=== PATIENT | female | born 1945 | race Caucasian/White ===

== ENCOUNTER 2022-06-25 19:16 | Outpatient (CLI) | payer MEDICARE, OTHER, SELFPAY | END 2022-06-25 19:17 | disposition home or self-care (01) | LOC: NFLDREF 06-27 10:28 | PROVIDERS: Visit Provider Family Medicine | DX: R30.0 Dysuria (principal); R32 Unspecified urinary incontinence; M54.9 Dorsalgia, unspecified | CPT/HCPCS: 87086 ==

== ENCOUNTER 2023-02-23 10:26 | Emergency (ER) | payer MEDICARE, OTHER, SELFPAY ==
[2023-02-23] VITALS (24 sets, daily range): BP systolic 111–127; BP diastolic 67–88; PULSE 59–133; RESP 15–26; TEMP 36.3; O2SAT 88–100; BMI 23.2
[2023-02-23] MEDS: 0.9 % SODIUM CHLORIDE 1000 ml 1,000 ML IV (11:05)
--- NOTE | 2023-02-23 11:11 | ED_ITS ---
HPI - General Adult General Date Seen: 02/23/23 <Meron Andrade MD - Last Filed: 02/23/23 15:29> Chief complaint: Arrhythmia/Palpitations <Meron Andrade MD - Last Filed: 02/23/23 15:29> Stated complaint: Possible A-fib <Meron Andrade MD - Last Filed: 02/23/23 15:29> Time Seen by Provider: 02/23/23 10:46 <Meron Andrade MD - Last Filed: 02/23/23 15:29> Source: patient, RN notes reviewed and old records reviewed <Meron Andrade MD - Last Filed: 02/23/23 15:29> Mode of arrival: ambulatory <Meron Andrade MD - Last Filed: 02/23/23 15:29> Limitations: no limitations <Meron Andrade MD - Last Filed: 02/23/23 15:29> History of Present Illness HPI narrative: Patient is a 77 generally healthy woman who presents with palpitations and dizziness starting this morning. She has a history of AFib a couple of years ago was cardioverted successfully. She says she followed up with her doctor after that and had a ZIO patch monitor for month, had no further AFib and so she was not started on anticoagulation. She has not have chest pain or difficulty breathing. She has not had any syncopal episodes, no recent illness and no other complaints. She does not smoke, only other medical history is hypertension. She did try taking an extra atenolol this morning but did not note any change in her symptoms. <Meron Andrade MD - Last Filed: 02/23/23 15:29> Related Data Home medications: Home Medications Medication Instructions Recorded Confirmed amlodipine 10 mg tablet 10 mg PO 04/05/22 02/13/23 atenolol 25 mg tablet 25 mg PO Q24H 04/05/22 02/23/23 desipramine 25 mg tablet 25 mg PO 04/05/22 02/13/23 duloxetine 20 mg capsule,delayed 80 mg PO 04/05/22 02/13/23 release duloxetine 60 mg capsule,delayed ea PO 04/05/22 02/13/23 release famotidine 20 mg tablet 20 mg PO 04/05/22 02/13/23 lorazepam 0.5 mg tablet 0.5 mg PO 04/05/22 02/13/23 methocarbamol 500 mg tablet 500 mg PO 04/05/22 02/13/23 pregabalin 25 mg capsule (Lyrica) 25 mg PO DAILY 02/23/23 02/23/23 Previous Rx's Medication Instructions Recorded methylprednisolone 4 mg tablets in See Rx Instructions PO PER PKG DIR 06/25/22 a dose pack (Medrol (Oscar)) #21 ea apixaban 5 mg tablet (Eliquis) 5 mg PO BID #60 tabs 02/23/23 <Meron Andrade MD - Last Filed: 02/23/23 15:29> Allergies/adverse reactions: Allergies Allergy/AdvReac Type Severity Reaction Status Date / Time lisinopril Allergy Unknown Headache Verified 02/23/23 10:38 <Meron Andrade MD - Last Filed: 02/23/23 15:29> Review of Systems Status of ROS: Reports: 10 or more systems reviewed and unremarkable except as noted in History and below <Meron Andrade MD - Last Filed: 02/23/23 15:29> [facility] Social History: Social History Smoking Status: Never smoker How often do you have a drink containing alcohol: never How often do you have six or more drinks on one occasion: Never AUDIT-C Alcohol total score: 0 Non-prescribed substance use: denies use service: No <Meron Andrade MD - Last Filed: 02/23/23 15:29> Exam Narrative: Exam Narrative: Vital signs as noted above. In general, an alert, well-appearing patient. Head: Normocephalic, atraumatic. Eyes: Pupils are equal reactive. Extraocular movements are full. Conjunctivae are normal. ENT: Mucous membranes are moist. Neck: Supple without lymphadenopathy. Heart: Irregularly irregular, mildly tachycardic. No significant murmur. Lungs: Clear bilaterally. No increased work of breathing, crackles or wheezes. Abdomen: Soft and nontender. No organomegaly. Extremities: Well perfused. No edema. No calf tenderness. Pulses intact. Neurologic: Patient is alert and oriented to person and place. Speech is fluent. Face is symmetric. Moves all extremities equally. Affect: Normal. Skin: Warm and dry. Well perfused. <Meron Andrade MD - Last Filed: 02/23/23 15:29> Const: Vital Signs, click to edit/add: Vital Signs - 24 hr 02/23/23 10:30 02/23/23 10:35 02/23/23 10:36 Temperature 97.4 F L Pulse Rate 118 H 133 H Pulse Rate [Right Pulse Oximeter] 123 H Respiratory Rate 18 Blood Pressure 111/81 Blood Pressure [Ri ght Upper Arm] 111/81 Pulse Oximetry 96 97 95 Oxygen Delivery Me thod Room Air Room Air Room Air Oxygen Flow Rate 02/23/23 10:40 02/23/23 10:45 02/23/23 10:50 Temperature Pulse Rate 127 H 103 H 108 H Pulse Rate [Right Pulse Oximeter] Respiratory Rate Blood Pressure Blood Pressure [Ri ght Upper Arm] Pulse Oximetry 96 98 92 Oxygen Delivery Nh thod Room Air Room Air Room Air Oxygen Flow Rate 02/23/23 10:55 02/23/23 10:59 02/23/23 11:00 Temperature Pulse Rate 105 H 112 H Pulse Rate [Right Pulse Oximeter] Respiratory Rate Blood Pressure Blood Pressure [Ri ght Upper Arm] Pulse Oximetry 95 97 96 Oxygen Delivery Me thod Room Air Room Air Oxygen Flow Rate 02/23/23 11:02 02/23/23 11:05 02/23/23 11:10 Temperature Pulse Rate 120 H 126 H 99 Pulse Rate [Right Pulse Oximeter] Respiratory Rate Blood Pressure 113/86 Blood Pressure [Ri ght Upper Arm] Pulse Oximetry 96 88 96 Oxygen Delivery Me thod Room Air Room Air Room Air Oxygen Flow Rate 02/23/23 11:16 02/23/23 11:20 02/23/23 11:22 Temperature Pulse Rate 125 H 115 H 119 H Pulse Rate [Right Pulse Oximeter] Respiratory Rate 24 17 Blood Pressure 127/88 Blood Pressure [Ri ght Upper Arm] Pulse Oximetry 94 98 100 Oxygen Delivery Me thod Room Air Room Air Nasal Cannula Oxygen Flow Rate 2 02/23/23 11:25 02/23/23 11:27 02/23/23 11:30 Temperature Pulse Rate 64 63 62 Pulse Rate [Right Pulse Oximeter] Respiratory Rate 23 Blood Pressure 118/67 Blood Pressure [Ri ght Upper Arm] Pulse Oximetry 96 98 98 Oxygen Delivery Me thod Nasal Cannula Nasal Cannula Nasal Cannula Oxygen Flow Rate 2 2 2 02/23/23 11:32 02/23/23 11:35 02/23/23 11:40 Temperature Pulse Rate 63 62 61 Pulse Rate [Right Pulse Oximeter] Respiratory Rate 21 23 26 H Blood Pressure 116/69 Blood Pressure [Ri ght Upper Arm] Pulse Oximetry 98 100 99 Oxygen Delivery Me thod Nasal Cannula Nasal Cannula Nasal Cannula Oxygen Flow Rate 2 2 2 02/23/23 11:45 02/23/23 11:47 02/23/23 11:50 Temperature Pulse Rate 61 59 L Pulse Rate [Right Pulse Oximeter] Respiratory Rate 15 19 Blood Pressure Blood Pressure [Ri ght Upper Arm] Pulse Oximetry 99 99 100 Oxygen Delivery Me thod Nasal Cannula Nasal Cannula Room Air Oxygen Flow Rate 2 2 <Meron Andrade MD - Last Filed: 02/23/23 15:29> Vital Signs, click to edit/add: Vital Signs - 24 hr 02/23/23 10:30 02/23/23 10:35 02/23/23 10:36 Temperature 97.4 F L Pulse Rate 118 H 133 H Pulse Rate [Right Pulse Oximeter] 123 H Respiratory Rate 18 Blood Pressure 111/81 Blood Pressure [Ri ght Upper Arm] 111/81 Pulse Oximetry 96 97 95 Oxygen Delivery Me thod Room Air Room Air Room Air Oxygen Flow Rate 02/23/23 10:40 02/23/23 10:45 02/23/23 10:50 Temperature Pulse Rate 127 H 103 H 108 H Pulse Rate [Right Pulse Oximeter] Respiratory Rate Blood Pressure Blood Pressure [Ri ght Upper Arm] Pulse Oximetry 96 98 92 Oxygen Delivery Me thod Room Air Room Air Room Air Oxygen Flow Rate 02/23/23 10:55 02/23/23 10:59 02/23/23 11:00 Temperature Pulse Rate 105 H 112 H Pulse Rate [Right Pulse Oximeter] Respiratory Rate Blood Pressure Blood Pressure [Ri ght Upper Arm] Pulse Oximetry 95 97 96 Oxygen Delivery Me thod Room Air Room Air Oxygen Flow Rate 02/23/23 11:02 02/23/23 11:05 02/23/23 11:10 Temperature Pulse Rate 120 H 126 H 99 Pulse Rate [Right Pulse Oximeter] Respiratory Rate Blood Pressure 113/86 Blood Pressure [Ri ght Upper Arm] Pulse Oximetry 96 88 96 Oxygen Delivery Me thod Room Air Room Air Room Air Oxygen Flow Rate 02/23/23 11:16 02/23/23 11:20 02/23/23 11:22 Temperature Pulse Rate 125 H 115 H 119 H Pulse Rate [Right Pulse Oximeter] Respiratory Rate 24 17 Blood Pressure 127/88 Blood Pressure [Ri ght Upper Arm] Pulse Oximetry 94 98 100 Oxygen Delivery Me thod Room Air Room Air Nasal Cannula Oxygen Flow Rate 2 02/23/23 11:25 02/23/23 11:27 02/23/23 11:30 Temperature Pulse Rate 64 63 62 Pulse Rate [Right Pulse Oximeter] Respiratory Rate 23 Blood Pressure 118/67 Blood Pressure [Ri ght Upper Arm] Pulse Oximetry 96 98 98 Oxygen Delivery Me thod Nasal Cannula Nasal Cannula Nasal Cannula Oxygen Flow Rate 2 2 2 02/23/23 11:32 02/23/23 11:35 02/23/23 11:40 Temperature Pulse Rate 63 62 61 Pulse Rate [Right Pulse Oximeter] Respiratory Rate 21 23 26 H Blood Pressure 116/69 Blood Pressure [Ri ght Upper Arm] Pulse Oximetry 98 100 99 Oxygen Delivery Me thod Nasal Cannula Nasal Cannula Nasal Cannula Oxygen Flow Rate 2 2 2 02/23/23 11:45 02/23/23 11:47 02/23/23 11:50 Temperature Pulse Rate 61 59 L Pulse Rate [Right Pulse Oximeter] Respiratory Rate 15 19 Blood Pressure Blood Pressure [Ri ght Upper Arm] Pulse Oximetry 99 99 100 Oxygen Delivery Me thod Nasal Cannula Nasal Cannula Room Air Oxygen Flow Rate 2 2 <Viri Bills MD - Last Filed: 02/23/23 12:08> Documenting provider has reviewed patient's vital signs: yes <Meron Andrade MD - Last Filed: 02/23/23 15:29> Course Course ED Course: EKG here shows atrial fibrillation with a rate in the 120s. No acute ST segment changes. Troponin is 0, other labs including metabolic panel, magnesium, TSH are pending. Review of records shows that she was cardioverted last time without complications, she is interested in trial of cardioversion again. Discussed risks and benefits fits of sedation and cardioversion including over-sedation, need for airway management, aspiration, failure to convert, dysrhythmia. She agreed to proceed, consent was signed. Procedure note: Patient was given propofol per Dr. Goodman. She was maintai shonda on oximetry, end-tidal CO2 and cardiac monitoring. RT was present as well. She tolerated sedation well, please see Dr. Goodman as note for details. Following anesthesia she was cardioverted with 200 joules to sinus rhythm. Repeat EKG shows a sinus rhythm with a ventricular rate of 62. She is awake and without complaints, feels well. Her chads Vasc score is 4. She does have very intermittent AFib at this point, but I did recommend that she be on a short course of anticoagulation following cardioversion here and discuss further with her primary doctor if at this point it would make sense to initiate long-term anticoagulation. Return any time for recurrent or worsening symptoms. <Meron Andrade MD - Last Filed: 02/23/23 15:29> Vital Signs Vital signs: Initial Vital Signs Temperature 97.4 F L 02/23/23 10:30 Temperature Source Temporal Artery Scan 02/23/23 10:30 Pulse Rate 123 H 02/23/23 10:30 Respiratory Rate 18 02/23/23 10:30 Blood Pressure 111/81 02/23/23 10:30 Blood Pressure Mean 91 02/23/23 10:30 Blood Pressure Position Semi-Fowlers 02/23/23 10:30 Pulse Oximetry 96 02/23/23 10:30 Oxygen Delivery Method Room Air 02/23/23 10:30 Vital Signs Temperature 97.4 F L 02/23/23 10:30 Pulse Rate 123 H 02/23/23 10:30 Respiratory Rate 18 02/23/23 10:30 Blood Pressure 111/81 02/23/23 10:30 Pulse Oximetry 96 02/23/23 10:30 Oxygen Delivery Method Room Air 02/23/23 10:30 Temperature 97.4 F L 02/23/23 10:30 Pulse Rate 59 L 02/23/23 11:50 Respiratory Rate 19 02/23/23 11:50 Blood Pressure 116/69 02/23/23 11:32 Pulse Oximetry 100 02/23/23 11:50 Oxygen Delivery Method Room Air 02/23/23 11:50 Oxygen Flow Rate 2 02/23/23 11:47 <Meron Andrade MD - Last Filed: 02/23/23 15:29> Initial Vital Signs Temperature 97.4 F L 02/23/23 10:30 Temperature Source Temporal Artery Scan 02/23/23 10:30 Pulse Rate 123 H 02/23/23 10:30 Respiratory Rate 18 02/23/23 10:30 Blood Pressure 111/81 02/23/23 10:30 Blood Pressure Mean 91 02/23/23 10:30 Blood Pressure Position Semi-Fowlers 02/23/23 10:30 Pulse Oximetry 96 02/23/23 10:30 Oxygen Delivery Method Room Air 02/23/23 10:30 Vital Signs Temperature 97.4 F L 02/23/23 10:30 Pulse Rate 123 H 02/23/23 10:30 Respiratory Rate 18 02/23/23 10:30 Blood Pressure 111/81 02/23/23 10:30 Pulse Oximetry 96 02/23/23 10:30 Oxygen Delivery Method Room Air 02/23/23 10:30 Temperature 97.4 F L 02/23/23 10:30 Pulse Rate 59 L 02/23/23 11:50 Respiratory Rate 19 02/23/23 11:50 Blood Pressure 116/69 02/23/23 11:32 Pulse Oximetry 100 02/23/23 11:50 Oxygen Delivery Method Room Air 02/23/23 11:50 Oxygen Flow Rate 2 02/23/23 11:47 <Viri Bills MD - Last Filed: 02/23/23 12:08> Medications Administered Medications: Discontinued Medications Generic Name Dose Route Start Last Admin Trade Name Freq PRN Reason Stop Dose Admin Sodium Chloride 1,000 mls @ 1,000 mls/hr 02/23/23 11:00 02/23/23 12:10 0.9 % Sodium Chloride 1000 Ml IV 02/23/23 11:59 Infused .Q1H LAKEISHA Infusion Propofol 200 mg 02/23/23 10:59 02/23/23 12:11 Propofol 10 Mg/Ml Inj IVP 02/23/23 11:00 60 mg ONCE ONE Administration <Meron Andrade MD - Last Filed: 02/23/23 15:29> Discontinued Medications Generic Name Dose Route Start Last Admin Trade Name Freq PRN Reason Stop Dose Admin Sodium Chloride 1,000 mls @ 1,000 mls/hr 02/23/23 11:00 02/23/23 12:10 0.9 % Sodium Chloride 1000 Ml IV 02/23/23 11:59 Infused .Q1H [place]ISHA Infusion Propofol 200 mg 02/23/23 10:59 02/23/23 12:11 Propofol 10 Mg/Ml Inj IVP 02/23/23 11:00 60 mg ONCE ONE Administration <Viri Bills MD - Last Filed: 02/23/23 12:08> Medical Decision Making Lab Data Labs: Lab Results 02/23/23 02/23/23 Range/Units 10:40 10:43 WBC 12.37 H (4.50-11.00) K/uL RBC 4.60 (4.00-5.20) m/uL Hgb 14.0 (12.0-16.0) gm/dL Hct 43.7 (33.0-51.0) % MCV 95 (80-100) fL MCH 30 (26-34) pg MCHC 32 (32-36) gm/dL RDW Coeff of Chidi 12.7 (11.5-15.5) % Plt Count 551 H (140-440) K/uL Neut % (Auto) 63.8 (42.0-72.0) % Lymph % (Auto) 26.1 (20-44) % Sebastian % (Auto) 6.8 (0.0-11.0) % Eos % (Auto) 2.3 (0.0-7.0) % Baso % (Auto) 0.3 (0.0-3.0) % Neut # (Auto) 7.90 H (1.7-7.0) K/uL Lymph # (Auto) 3.20 H (0.90-2.90) K/uL Sebastian # (Auto) 0.80 (0.00-0.90) K/UL Eos # (Auto) 0.30 (0.00-0.50) K/uL Baso # (Auto) 0.00 (0.00-0.30) K/uL Abs Immat Gran (auto) 0.10 (0.00-0.30) K/uL Imm/Tot Granulo (auto) 0.7 % Sodium 141 (135-149) mmol/L Potassium 3.7 (3.6-5.1) mmol/L Chloride 103 (96-114) mmol/L Carbon Dioxide 28 (20-32) mmol/L Anion Gap 10 (7-15) mEq/L BUN 11 (7-30) mg/dL Creatinine 0.8 (0.5-1.5) mg/dL Estimated Creat Clear 41.97 Estimated GFR 77 ml/min Glucose 114 (60-115) mg/dL Calcium 9.1 (8.4-10.6) mg/dL Magnesium 2.0 (1.5-2.6) mg/dL TSH 2.830 (0.270-4.200) uIU/mL POC Troponin I 0.00 L (0.01-0.04) ng/ml <Meron Andrade MD - Last Filed: 02/23/23 15:29> Lab Results 02/23/23 02/23/23 Range/Units 10:40 10:43 WBC 12.37 H (4.50-11.00) K/uL RBC 4.60 (4.00-5.20) m/uL Hgb 14.0 (12.0-16.0) gm/dL Hct 43.7 (33.0-51.0) % MCV 95 (80-100) fL MCH 30 (26-34) pg MCHC 32 (32-36) gm/dL RDW Coeff of Chidi 12.7 (11.5-15.5) % Plt Count 551 H (140-440) K/uL Neut % (Auto) 63.8 (42.0-72.0) % Lymph % (Auto) 26.1 (20-44) % Sebastian % (Auto) 6.8 (0.0-11.0) % Eos % (Auto) 2.3 (0.0-7.0) % Baso % (Auto) 0.3 (0.0-3.0) % Neut # (Auto) 7.90 H (1.7-7.0) K/uL Lymph # (Auto) 3.20 H (0.90-2.90) K/uL Sebastian # (Auto) 0.80 (0.00-0.90) K/UL Eos # (Auto) 0.30 (0.00-0.50) K/uL Baso # (Auto) 0.00 (0.00-0.30) K/uL Abs Immat Gran (auto) 0.10 (0.00-0.30) K/uL Imm/Tot Granulo (auto) 0.7 % Sodium 141 (135-149) mmol/L Potassium 3.7 (3.6-5.1) mmol/L Chloride 103 (96-114) mmol/L Carbon Dioxide 28 (20-32) mmol/L Anion Gap 10 (7-15) mEq/L BUN 11 (7-30) mg/dL Creatinine 0.8 (0.5-1.5) mg/dL Estimated Creat Clear 41.97 Estimated GFR 77 ml/min Glucose 114 (60-115) mg/dL Calcium 9.1 (8.4-10.6) mg/dL Magnesium 2.0 (1.5-2.6) mg/dL TSH 2.830 (0.270-4.200) uIU/mL POC Troponin I 0.00 L (0.01-0.04) ng/ml <Viir Bills MD - Last Filed: 02/23/23 12:08> Discharge Plan Discharge Clinical Impression: Atrial fibrillation <Meron Andrade MD - Last Filed: 02/23/23 15:29> Patient Disposition: Home, Self-Care <Meron Andrade MD - Last Filed: 02/23/23 15:29> Condition: Improved <Meron Andrade MD - Last Filed: 02/23/23 15:29> Instructions: A-fib (Atrial Fibrillation) (ED) <Meron Andrade MD - Last Filed: 02/23/23 15:29> Additional Instructions: I would recommend a short course of blood thinner status post cardioversion. Given your current age and history of high blood pressure, your stroke risk may be high enough that it makes sense at this point to continue long-term. You can discuss this further with your primary doctor. <Meron Andrade MD - Last Filed: 02/23/23 15:29> Prescriptions: New Eliquis 5 mg tablet 5 mg PO BID Qty: 60 2RF No Action duloxetine 60 mg capsule,delayed release(DR/EC) PO amlodipine 10 mg tablet 10 mg PO duloxetine 20 mg capsule,delayed release(DR/EC) 80 mg PO Patient Comments: TAKE 1 CAPSULE BY MOUTH EVERY DAY atenolol 25 mg tablet 25 mg PO Q24H lorazepam 0.5 mg tablet 0.5 mg PO Patient Comments: TAKE 1-2 TABLETS BY MOUTH EVERY NIGHT AT BEDTIME. desipramine 25 mg tablet 25 mg PO Patient Comments: TAKE 1 TABLET BY MOUTH EVERY MORNING. UPDATE REFILLS FOR 1 YEAR. methocarbamol 500 mg tablet 500 mg PO famotidine 20 mg tablet 20 mg PO pregabalin [Lyrica] 25 mg capsule 25 mg PO DAILY methylprednisolone [Medrol (Oscar)] 4 mg tablets,dose pack See Rx Instructions PO PER PKG DIR Qty: 21 0RF Rx Instructions: PO PER PKG DIR <Meron Andrade MD - Last Filed: 02/23/23 15:29> Follow Up/Referrals: Provider,Not a Local [Primary Care Provider] - <Meron Andrade MD - Last Filed: 02/23/23 15:29> Stand Alone Forms: [facility] Info Instructions <Meron Andrade MD - Last Filed: 02/23/23 15:29> Procedures Procedural Sedation Pre procedure diagnosis: Atrial fibrillation with RVR <Viri Bills MD - Last Filed: 02/23/23 12:08> Post procedure diagnosis: Atrial fibrillation with RVR status post synchronized cardioversion <Viri Bills MD - Last Filed: 02/23/23 12:08> Written consent by: patient <Viri Bills MD - Last Filed: 02/23/23 12:08> Verification/time out: correct patient, correct procedure and time out performed <Viri Bills MD - Last Filed: 02/23/23 12:08> Name of person perfmorming the procedure: Meron Andrade <Viri Bills MD - Last Filed: 02/23/23 12:08> Sedation provider same as procedural provider: No <Viri Bills MD - Last Filed: 02/23/23 12:08> Presedation Evaluation: Alert and conversive patient. Dr. Andrade and assessed patient for conscious sedation, see her documentation within this note. <Viri mitchell MD - Last Filed: 02/23/23 12:08> ASA Class: II <Viri Bills MD - Last Filed: 02/23/23 12:08> Preparation: cardiac monitor technician applied, pulse oximeter, capnometry used, supplemental O2 applied, suction/airway equipment at bedside and IV secured <Viri Stafford MD - Last Filed: 02/23/23 12:08> IV Propofol dose (mg): 60 (60 mg of IV push propofol was given by myself, this provided adequate sedation.) <Viri Bills MD - Last Filed: 02/23/23 12:08> Complications: none <Viri Bills MD - Last Filed: 02/23/23 12:08> Interventions: airway repositioned (Patient's mouth was briefly opened, about 10 seconds of hypoventilation without any needed intervention beyond this) <Viri Bills MD - Last Filed: 02/23/23 12:08> Additional Comments: Patient was recovered without any interventions, tolerated the sedation and procedure well. Please see Dr. Andrade's procedure note as well. Patient was alert and conversive postprocedural early the time I checked in on her prior to discharge. <Viri Bills MD - Last Filed: 02/23/23 12:08>
--- OUTSIDE RECORDS SUMMARY | 2023-02-23 11:12 | XMS_ITS | Patient Health Record ---
Author Name Unknown Organization [facility] Address [address] [place] [address] [address] [place] [address] Care Team Providers Care [employer] D[employer] Net Name Role Phone Carolynn Alvarado Primary Care Provider UnavailLarry Rasheed Unavailable [phone] Phillip Gallagher Unavailable Unavailable ALLERGIES Allergen (clinical drug ingredient) Drug/Non Drug Allergy documented on EMR Reaction Allergy Type Onset Date Status lisinopril Lisinopril Unknown Drug Allergy Activ e REASON FOR REFERRAL No Information MEDICATIONS Medication SIG (Take, Route, Fr equency, Duration) Notes Start Date End Date Status LORazepam 0.5 MG 1 tablet Orally Twice a day Active DULoxetine HCl 40 MG 2 capsule Orally Once a day Active Atenolol 25 MG 1 tablet Orally Once a day Active Norvasc 10 MG 4 tablet Orally Once a day Active Desipramine HCl 25 MG 1 tablet Orally Once a day Active SOCIAL HISTORY Tobacco Use: Social History Observation Description Date Details (start date - stop date) Never Smoker NA - NA Sex Assigned At : Social History Observation Description Sex Assigned At Unknown Tobacco Use/Smoking: Question Answer Notes Are you a nonsmoker Alcohol Screen Question Answer Notes Did you have a drink containing alcohol in the p ast year? No Points 0 Interpretation Negative PROBLEMS Problem Type ICD Code Onset Dates Problem Status W/U Status Risk SNOMED Code Notes Problem Other chronic pain (G89.29) Active confirmed Chronic pain (00977562) Problem Spondylosis without myelopathy or radiculopathy, lumbosacral region (M47.817) Active confirmed Lumbosacral spondylosis without myelopathy (79064562) Problem Cervicalgia (M54.2) Active confirmed Cervicalgia (81023337) Problem Radiculopathy, lumbosacral region (M54.17) Active confirmed Lumbosacral radiculopathy (9590427) PLAN OF TREATMENT No Information Insurance Providers Payer Name Payer Address Payer Phone Subscriber Number Group Number Insured Name Patient Relationship to Insured Coverage Start Date Coverage End Date [employer] [address] [address] [place] [address] [id number] Michelle Franz Self - patient is the insured 2 Medicare Part B [employer]. [address] [place] [address] [id number] Michelle Franz Self - patient is the insured 3 MEDICAL (GENERAL) HISTORY Medical History History ICD Code acid reflux arthritis depression headaches hypertension osteoporosis Surgical History Surgery Date(Month/Year) gall bladder surgery 2018 microdiscectomy 2016,2020,2020 cervical fusions 2014,2017,2020 Hospitalization History Reason Date(Month/Year) see surgical history
[2023-02-23 11:17] LABS: Chloride* 103 mmol/L (96-114); Potassium* 3.7 mmol/L (3.6-5.1); Sodium* 141 mmol/L (135-149)
[2023-02-23 11:20] LABS: Anion Gap 10 mEq/L (7-15); Blood Urea Nitrogen* 11 mg/dL (7-30); Calcium* 9.1 mg/dL (8.4-10.6); Carbon Dioxide* 28 mmol/L (20-32); Creatinine* 0.8 mg/dL (0.5-1.5); Est. Creatinine Clearance* 41.97; Estimated Glomerular Filt Rate 77 ml/min; Glucose* 114 mg/dL (60-115)
[2023-02-23 11:23] LABS: Basophils Percent Auto 0.3 % (0.0-3.0); Eosinophils Percent Auto 2.3 % (0.0-7.0); Hematocrit 43.7 % (33.0-51.0); Immature Granulocytes Pct Auto 0.7 %; Lymphocytes Percent Auto 26.1 % (20-44); Mean Corpuscular HGB Conc 32 gm/dL (32-36); Mean Corpuscular Hemoglobin 30 pg (26-34); Mean Corpuscular Volume 95 fL (80-100); Monocytes Percent Auto 6.8 % (0.0-11.0); Neutrophils Percent Auto 63.8 % (42.0-72.0); Platelet Count* 551 K/uL (140-440); RDW Coefficient of Variation % 12.7 % (11.5-15.5); White Blood Count* 12.37 K/uL (4.50-11.00)
[2023-02-23 11:27] LABS: Slide Review Reflex No
--- NOTE | 2023-02-23 12:07 | ED.NURSE ---
Conscious sedation packet with vital signs and EKG strip placed in medical records.
[2023-02-23] MEDS: PROPOFOL 10 MG/ML INJ 200 MG IVP (12:11)
--- NOTE | 2023-02-23 13:17 | RESP.RT ---
Cardioversion of patient, On NC 2 Lpm with EtCO2 in line 31 torr, SaO2 99%. Held Jaw thrust post cardioversion X 8 minutes. VSS during procedure, Self inflating bag at bed side.
== END 2023-02-23 12:08 | disposition home or self-care (01) ==
PROVIDERS: Emergency Provider Emergency Medicine
DX: I48.91 Unspecified atrial fibrillation (principal)
CPT/HCPCS: 36415; 80048; 83735; 84443; 84484; 85025; 92960; 93005; 94761; 99156; 99284; 99285; J2704; J7030

== ENCOUNTER 2023-04-05 07:57 | Outpatient (CLI) | payer MEDICARE, OTHER, SELFPAY ==
--- OUTSIDE RECORDS SUMMARY | 2023-04-07 09:27 | XMS_ITS | Clinical Summary ---
Author Name Unknown Organization [facility] Address [address] [place] [address] Care Team Providers Care Assembler Name Role Phone Carolynn Alvarado MD Primary Care Provider [phone] [facility], [facility] Unavailable Allergies Active Allergy Reactions Criticality Noted Date Comments Lisinopril 03/26/2023 COHEN Medications Medication Sig Dispensed Refills Start Date End Date Status medical supply, miscellaneous (ELECTRICAL BONE GROWTH STIMULATOR)Indicat ions:S/P lumbar fusion Company: [employer] - for home use. 1 each 0 3 Suspended Additional Information calcium carbonate (TUMS) 200 mg calcium (500 mg) oral chew tabIndications:S/P lumbar fusion Chew 1 tablet (500 mg) twice a day with breakfast and dinner. 180 tablet 3 3 Suspended Additional Information ergocalciferol (VITAMIN D2) 1,250 mcg (50,000 unit) oral capsuleIndications :S/P lumbar fusion Take 1 capsule (50,000 Units) by mouth every 7 (seven) days. 12 capsule 3 3 Suspended Additional Information amLODIPine (NORVASC) 10 mg oral tablet Take 1 tablet (10 mg) by mouth Daily. 0 2 Suspended desipramine (NORPRAMIN) 25 mg oral tablet Take 1 tablet (25 mg) by mouth Daily. 0 Suspended pregabalin (LYRICA) 25 mg oral capsule Take 2 capsules (50 mg) by mouth twice a day. 0 3 08/19/19 24 Suspended famotidine (PEPCID) 20 mg oral tablet Take 1 tablet (20 mg) by mouth once daily. 0 2 Suspended DULoxetine (CYMBALTA) 20 mg oral delayed release capsule 1 capsule (20 mg) once daily. 0 3 Suspended DULoxetine (CYMBALTA) 60 mg oral delayed release capsule Take 1 capsule (60 mg) by mouth once daily. 0 3 Suspended LORazepam (ATIVAN) 0.5 mg oral tablet Take 2 tablets (1 mg) by mouth at bedtime as needed. 0 3 Suspended methocarbamoL (ROBAXIN) 500 mg oral tablet 1 tablet (500 mg) at bedtime as needed. 0 3 04/02/19 24 Discontinued acetaminophen (TYLENOL) 500 mg oral tablet Take 2 tablets (1,000 mg) by mouth every 6 (six) hours as needed. 0 04/02/19 24 Discontinued atenolol (TENORMIN) 25 mg oral tablet Take 1 tablet (25 mg) by mouth once daily. 0 2 Suspended Calcium Citrate-Vitamin D3 315 mg-5 mcg (200 unit) oral Tab Take 1 tablet by mouth twice a day. 0 2 04/02/19 24 Discontinued Cholecalciferol, Vitamin D3, 50 mcg (2,000 unit) oral capsule Take 2,000 Units by mouth Daily. 0 2 04/02/19 24 Discontinued senna-docusate (SENNA-S) 8.6-50 mg oral tablet Take 1 tablet by mouth twice a day as needed. 60 tablet 0 4 Suspended Additional Information oxyCODONE, immediate release, (ROXICODONE) 5 mg oral tablet Take 1-2 tablets (5-10 mg) by mouth every 6 (six) hours as needed. 35 tablet 0 4 Suspended Additional Information hydrOXYzine pamoate (VISTARIL) 25 mg oral capsule Take 1 capsule (25 mg) by mouth every 6 (six) hours as needed. 12 capsule 0 4 Suspended Additional Information tiZANidine (ZANAFLEX) 2 mg oral tablet Take 2 tablets (4 mg) by mouth four times a day. 20 tablet 0 4 Suspended Additional Information Active Problems Problem Noted Date Diagnosed Date Acute pain of left lower extremity 04/05/2023 Lumbar radiculopathy 04/01/2023 Encounters Date Type Department Care Team Description 04/05/2023 5:15 PM FORM STRIPPER - Present Hospital Encounter [id number] [facility] [place] [address] Sergio Lara, Chuck Borges MD Acute pain of left lower extremity 04/01/2023 7:25 AM FORM STRIPPER - 04/01/2023 11:50 AM FORM STRIPPER Surgery [facility] Operating Room [address] [facility] [place] [id number] Isai Foss MD L1-5 POSTERIOR FUSION WITH INSTRUMENTATION WITH NEURO MONITORING 04/01/2023 5:52 AM FORM STRIPPER - 04/03/2023 3:20 PM FORM STRIPPER Hospital Encounter [id number] [address] [facility] [place] [address] Isai Foss MD Lumbar radiculopathy Discharge Disposition: Returning Home/Self Care 04/01/2023 Travel 03/28/2023 Prep For Procedure [employer] PROVID[employer] [address] [place] [address] [place] [address] Nj Thorne, REJI 03/26/2023 Travel 03/12/2023 Travel from Last 3 Months Social History Tobacco Use Types Packs/Day Years Used Date Smoking Tobacco: Never Smokeless Tobacco: Never Tobacco Cessation:Counseling Given: Not Answered Alcohol Use Standard Drinks/Week Comments Never 0 (1 standard drink = 0.6 oz pur e alcohol) [facility] Utilities Answer Date Recorded In the past 12 months has [facility] [employer], gas, oil, or water [employer] threatened to shut off services in your home? No 04/05/2023 Humiliation, Afraid, Rape, and Kick questionnair e Answer Date Recorded Within the last year, have y ou been afraid of your partner or ex-partner? No 04/05/2023 Within the last year, have y ou been humiliated or emotionally abused in other ways by your partner or ex-partner? No Within the last year, have y ou been kicked, hit, slapped, or otherwise physically hurt by your partner or ex-partner? No 04/05/2023 Within the last year, have y ou been raped or forced to have any kind of sexual activity by your partner or ex-partner? No 04/05/2023 Hunger Vital Sign Answer Date Recorded Within the past 12 months, y ou worried that your food would run out before you got the money to buy more. Never true 04/05/19 24 Within the past 12 months, t he food you bought just didn't last and you didn't have money to get more. Never true 04/05/2023 PRAPARE - Transportation Answer Date Re corded In the past 12 months, has l ack of transportation kept you from medical appointments or from getting medications? No 03/18 In the past 12 months, has l ack of transportation kept you from meetings, work, or from getting things needed for daily living? No 04/05/2023 Housing Stability Vital Sign Answer Shailesh e Recorded In the last 12 months, was t here a time when you were not able to pay the mortgage or rent on time? No 04/05/2023 In the last 12 months, how many places have you lived? 1 04/05/2023 In the last 12 months, was t here a time when you did not have a steady place to sleep or slept in a fdc (including now)? No 04/05/2023 Sex and Gender Information Value Date Recorded Sex Assigned at Female 03/11/2023 11:10 AM FORM STRIPPER Gender Identity Female 03/11/2023 11:10 AM FORM STRIPPER Sexual Orientation Straight 03/11/2023 11 :10 AM FORM STRIPPER Last Filed Vital Signs Vital Sign Reading Time Taken Comments Blood Pressure 134/82 04/07/2023 8:44 AM FORM STRIPPER Pulse 77 04/07/2023 8:44 AM FORM STRIPPER Temperature 36.3 ??C (97.4 ??F) 04/07/2023 5:53 AM CS T Respiratory Rate 20 04/07/2023 8:44 AM FORM STRIPPER Oxygen Saturation 98% 04/07/2023 8:44 AM FORM STRIPPER Inhaled Oxygen Concentration - - Weight 61.2 kg (135 lb) 04/05/2023 5:45 PM FORM STRIPPER Height 162.6 cm (5' 4) 04/05/2023 5:45 PM FORM STRIPPER Body Mass Index 23.17 04/05/2023 5:45 PM FORM STRIPPER Plan of Treatment Health Maintenance Due Date [...] history exists Medical Devices Implanted Type Area Pouncing Machine Operator Device Identifier Shelf Expiration Date Model / Serial / Lot Cancellous Chips 30cc - [id number] Implanted:Qty : 1 on 04/01/2023 by Isai Foss MD at [facility] Bone N/A: Spine Lumbar [employer] 01/23/2027 [id number] / [id number] / Infuse Med - [id number] Implanted:Qty : 1 on 04/01/2023 by Isai Foss MD at [facility] Prosthetic Implant Non-Specific N/A: Spine Lumbar [employer] Sofamor Danek 09/14/2024 [id number] / / [id number] 5.5mm Ti Alloy Curved Jarred, 125mm Implanted:Qty : 2 on 04/01/2023 by Isai Foss MD at [facility] Back [id number] / / Description:MFTR: [employer] Procedures The patient is currently admitted. The information in this section might not be complete until the patient is discharged. Procedure Name Priority Date/Time Associated Diagnosis Comments CK TOTAL Routine 04/07/2023 7:01 AM FORM STRIPPER CBC/DIFF Routine 04/07/2023 7:01 AM FORM STRIPPER COMPREHENSIVE METABOLIC PANEL Routine 04/07/2023 7:[address] SPINE LUMBAR W/O CON Routine 04/06/2023 12:10 PM FORM STRIPPER XR PELVIS & HIP LATERAL BILAT Routine 04/06/2023 10:07 AM FORM STRIPPER HBA1C / EAG Add On 04/05/2023 7:07 PM FORM STRIPPER CK TOTAL Add On 04/05/2023 7:07 PM FORM STRIPPER COMPREHENSIVE METABOLIC PANEL Routine 04/05/2023 7:07 PM FORM STRIPPER CBC (HGB,HCT,WBC,RBC,KURTIS TELET) Routine 04/05/2023 7:07 PM FORM STRIPPER HEMOGLOBIN Routine 04/03/2023 7:00 AM FORM STRIPPER HEMOGLOBIN Timed Procedure 04/02/2023 3:26 PM FORM STRIPPER XR SPINE LUMBAR ROUTINE STAT 04/02/2023 10:43 AM FORM STRIPPER EXTRA TUBE-SST (LAB USE ONLY) Routine 04/02/2023 7:28 AM FORM STRIPPER HEMOGLOBIN Routine 04/02/2023 7:28 AM FORM STRIPPER XR C-ARM SPINE STAT 04/01/2023 10:36 AM FORM STRIPPER INTUBATION Routine 04/01/2023 8:15 AM FORM STRIPPER SPIN BONE AUTOGRFT LOCAL 04/01/2023 7:29 AM FORM STRIPPER Degeneration of lumbar intervertebral disc ALLOGRAFT FOR SPINE SURGERY ONLY MORSELIZED 04/01/2023 7:29 AM FORM STRIPPER Degeneration of lumbar intervertebral disc INSERT VERT FIX DEV,POST,3-6 * 04/01/2023 7:29 AM FORM STRIPPER Degeneration of lumbar intervertebral disc SPINE FUSN,POST TECH,EA ADDNL* 04/01/2023 7:29 AM FORM STRIPPER Degeneration of lumbar intervertebral disc ARTHRODESIS POSTERIOR/POSTEROLAT ERAL LUMBAR 04/01/2023 7:29 AM FORM STRIPPER Degeneration of lumbar intervertebral disc ABORH CONFIRM (LAB USE ONLY) STAT 04/01/2023 6:47 AM FORM STRIPPER HEMATOCRIT STAT 04/01/2023 6:46 AM FORM STRIPPER HEMOGLOBIN STAT 04/01/2023 6:46 AM FORM STRIPPER TYPE AND SCREEN STAT 04/01/2023 6:46 AM FORM STRIPPER PARTIAL THROMBOPLASTIN TIME STAT 04/01/2023 6:46 AM FORM STRIPPER PROTIME/INR STAT 04/01/2023 6:46 AM FORM STRIPPER POCT GLU METER STAT 04/01/2023 6:12 AM FORM STRIPPER from Last 3 Months Results * CK Total (04/07/2023 7:01 AM FORM STRIPPER) Only the most recent of2 resultswithin the time period is included. CK TOTAL 174 34 - 192 U/L 04/07/2023 8:01 AM FORM STRIPPER [facility] Blood 04/07/2023 7:01 AM FORM STRIPPER 04/07/2023 7:29 AM FORM STRIPPER Chuck Carpenter MD CHEMISTRY ORDERABLE Performing Organization Address City/State/[facility] Co de Phone Number [facility] [address] [place] [address] * (ABNORMAL) Comprehensive Metabolic Panel (04/07/2023 7:01 AM FORM STRIPPER) Only the most recent of2 resultswithin the time period is included. Sodium 136 136 - 145 mmol/L 04/07/2023 8:01 AM FORM STRIPPER [facility] Potassium 4.2 3.4 - 5.1 mmol/L 04/07/2023 8:01 AM FORM STRIPPER [facility] Chloride 103 98 - 108 mmol/L 04/07/2023 8:01 AM [facility] Carbon Dioxide 27 20 - 31 mmol/L 04/07/2023 8:01 AM [facility] BUN (Urea Nitro) 20 9 - 23 mg/dL 04/07/2023 8:01 AM [facility] Creatinine 0.66 0.55 - 1.02 mg/dL 04/07/2023 8:01 AM [facility] Est GFR (CKD-EPI) >60.00 >60.00 mL/min/1. 73m2 04/07/2023 8:01 AM [facility] Comment:Calculation based on the Chronic Kidney Disease Epidemiology Collaboration (CKD-EPI) equation refit without adjustment for race. Glucose 147(H) 74 - 106 mg/dL 04/07/2023 8:01 AM [facility] Calcium, Serum 8.2(L) 8.7 - 10.4 mg/dL 04/07/2023 8:01 AM [facility] Anion Gap 6.0 0.0 - 15.0 mmol/L 04/07/2023 8:01 AM [facility] Albumin 2.8(L) 3.4 - 5.0 g/dL 04/07/2023 8:01 AM [facility] Bilirubin-Total 0.3 0.3 - 1.2 mg/dL 04/07/2023 8:01 AM [facility] Alkaline Phosphatase 107 46 - 116 U/L 04/07/2023 8:01 AM [facility] Protein Total 6.3 5.7 - 8.2 g/dL 04/07/2023 8:01 AM [facility] AST (SGOT) 22 13 - 40 U/L 04/07/2023 8:01 AM [facility] ALT 87(H) 7 - 40 U/L 04/07/2023 8:01 AM [facility] Blood 04/07/2023 7:01 AM FORM STRIPPER 04/07/2023 7:29 AM [facility] Chuck Carpenter MD CHEMISTRY ORDERABLE [facility] [address] [place] [id number] * (ABNORMAL) CBC / Diff (04/07/2023 7:01 AM [facility]) WBC 15.2(H) 4.3 - 10.8 K/uL 04/07/2023 7:34 AM [facility] RBC 2.90(L) 4.20 - 5.40 M/uL 04/07/2023 7:34 AM [facility] Hemoglobin 8.8(L) 12.0 - 16.0 gm/dL 04/07/2023 7:34 AM [facility] Hematocrit 26.9(L) 36.0 - 48.0 % 04/07/2023 7:34 AM [facility] MCV 93 80 - 100 fL 04/07/2023 7:34 AM [facility] MCH 30 27 - 33 pg 04/07/2023 7:34 AM [facility] MCHC 33 33 - 36 gm/dL 04/07/2023 7:34 AM [facility] RDW 13.0 11.5 - 14.5 % 04/07/2023 7:34 AM [facility] Platelet Count 468(H) 150 - 400 K/UL 04/07/2023 7:34 AM [facility] MPV 10.2 6.5 - 12 fL 04/07/2023 7:34 AM [facility] PMN % 80.8 % 04/07/2023 7:34 AM [facility] IG % 2.0(H) <=1.0 % 04/07/2023 7:34 AM [facility] Comment:Immature granulocyte s often indicate left shift when outside of normal limits. Lymphocyte % 11.8 % 04/07/2023 7:34 AM [facility] Monocyte % 5.0 % 04/07/2023 7:34 AM [facility] Eosinophil % 0.2 % 04/07/2023 7:34 AM [facility] Basophil % 0.2 % 04/07/2023 7:34 AM [facility] PMN Absolute 12.32(H) 1.80 - 7.80 K/uL 04/07/2023 7:34 AM [facility] Lymphocyte Absolute 1.80 1.00 - 4.00 K/uL 04/07/2023 7:34 AM [facility] Monocyte Absolute 0.76 0.00 - 1.00 K/uL 04/07/2023 7:34 AM [facility] Eosinophil Absolute 0.03 0.00 - 0.45 K/uL 04/07/2023 7:34 AM [facility] Basophil Absolute 0.03 0.00 - 0.20 K/uL 04/07/2023 7:34 AM [facility] Nucl RBC % 0.0 0.0 - 0.0 /100 WBC 04/07/2023 7:34 AM [facility] Nucl RBC Absolute 0.00 0.00 - 0.00 K/uL 04/07/2023 7:34 AM [facility] Blood 04/07/2023 7:01 AM FORM STRIPPER 04/07/2023 7:30 AM FORM STRIPPER Chuck Carpenter MD HEMATOLOGY ORDERABLE Performing Organization Address City/State/[facility] Co de Phone Number [facility] [address] [place] [address] * CT Spine Lumbar w/o Contrast (04/06/2023 12:10 PM FORM STRIPPER) Anatomical Region Laterality Modality Spine Computed Tomogra phy 04/06/2023 12:0 6 PM FORM STRIPPER Impressions 04/06/2023 12:22 PM FORM STRIPPER IMPRESSION: 1. Operative changes of posterior jarred and pedicle screw fixation L1-L5 with posterolateral bone grafting. Intact hardware without abnormal medialization of the pedicle screws, fracture, or surrounding osseous lucency. 2. No acute lumbar vertebral body compression deformity. 3. Subcutaneous and intramuscular gas and fluid in the operative bed is favored postoperative in nature. 4. Significantly limited evaluation of the dorsal disc margins, spinal canal and neural foramina due to artifact related to adjacent hardware. This can be further assessed with follow-up contrast-enhanced MRI of the lumbar spine as deemed clinically warranted. 5. Multilevel advanced disc degeneration throughout the lumbar spine, asymmetric at multiple levels due to scoliosis. REPORT SIGNED BY Janice Talavera M.D. Narrative 04/06/2023 12:22 PM FORM STRIPPER EXAM: ??CT SPINE LUMBAR W/O CON DATE: 04/06/2023 11:47 AM CLINICAL INFORMATION: ??77 years old Female presents for pain. Status post L1-5 posterior spinal fusion. TECHNICAL INFORMATION: Helical axial CT images of the lumbar spine were obtained from the T12 vertebral body to S1 without intravenous contrast. Multiplanar soft tissue and bone algorithm reconstruction of the images was performed and evaluated. Subtle interspace detail may not be detected without the administration of intrathecal contrast or MRI. COMPARISON: Pelvic and hip radiographs 04/06/2023 and lumbar spine radiographs 04/02/2023. INTERPRETATION: ?? OSSEOUS STRUCTURES: 5 nonrib-bearing lumbar-type vertebral bodies. Reverse S-shaped curvature of the lumbar spine with asymmetric right loss of disc height L1-L2 and asymmetric left loss of disc height L4-L5. There is only 6 mm anterolisthesis of L4 on L5 and measured in the midline. This is less exaggerated compared to radiographs. There is also 5 mm retrolisthesis L1 on L2. No acute lumbar vertebral body compression deformity. Partially visualized lower ribs are intact. Acute transverse process fracture visualized. The partially visualized sacrum and iliac wings are intact. There have been prior operative changes of posterior jarred and pedicle screw fixation from L1-L5 with posterolateral bone grafting. Vertical fusion rods are intact. No pedicle fixation screw fracture visualized. No abnormal medialization of the pedicle screws. No discrete surrounding lucency to suggest loosening. INTERSPACE DETAILS: Advanced disc degeneration throughout the lumbar spine with loss of disc height. Asymmetric right loss of disc height at L1-L2 with right lateral marginal osteophyte formation, associated endplate sclerosis and developing Schmorl's nodes. Diffuse advanced loss of disc height L2-L3. Asymmetric left loss of disc height L3-L4 and L4-L5. Generally preserved L5-S1 disc space. Significantly limited detailed evaluation of the dorsal disc margins, central spinal canal and neural foramina due to beam hardening artifact related to adjacent hardware. No intrathecal gas. SOFT TISSUES: Subcutaneous recent postoperative gas and edema. Paraspinal fluid density and few tiny foci of gas present is favored postoperative. There is mild edema adjacent to the iliopsoas musculature with small foci of gas along the right psoas muscle, also likely postoperative. Atheromatous calcification of the lower thoracic and abdominal aorta without abdominal aortic aneurysm. Remainder of the visualized paravertebral soft tissues are unremarkable Procedure Note Janice Talavera MD - 04/06/2023 EXAM: CT SPINE LUMBAR W/O CON DATE: 04/06/2023 11:47 AM CLINICAL INFORMATION: 77 years old Female presents for pain. Status postL1-5 posterior spinal fusion. TECHNICAL INFORMATION: Helical axial CT images of the lumbar spine wereobtained from the T12 vertebral body to S1 without intravenous contrast.Multiplanar soft tissue and bone algorithm reconstruction of the imageswas performed and evaluated. Subtle interspace detail may not be detectedwithout the administration of intrathecal contrast or MRI. COMPARISON: Pelvic and hip radiographs 04/06/2023 and lumbar spineradiographs 04/02/2023. INTERPRETATION: OSSEOUS STRUCTURES: 5 nonrib-bearing lumbar-type vertebral bodies. Reverse S-shaped curvatureof the lumbar spine with asymmetric right loss of disc height L1-L2 andasymmetric left loss of disc height L4-L5. There is only 6 mm anterolisthesis of L4 on L5 and measured in themidline. This is less exaggerated compared to radiographs. There is also 5mm retrolisthesis L1 on L2. No acute lumbar vertebral body compression deformity. Partially visualized lower ribs are intact. Acute transverse processfracture visualized. The partially visualized sacrum and iliac wings areintact. There have been prior operative changes of posterior jarred and pedicle screwfixation from L1-L5 with posterolateral bone grafting. Vertical fusionrods are intact. No pedicle fixation screw fracture visualized. Noabnormal medialization of the pedicle screws. No discrete surroundinglucency to suggest loosening. INTERSPACE DETAILS: Advanced disc degeneration throughout the lumbar spine with loss of discheight. Asymmetric right loss of disc height at L1-L2 with right lateralmarginal osteophyte formation, associated endplate sclerosis anddeveloping Schmorl's nodes. Diffuse advanced loss of disc height L2-L3.Asymmetric left loss of disc height L3-L4 and L4-L5. Generally preservedL5-S1 disc space. Significantly limited detailed evaluation of the dorsal disc margins,central spinal canal and neural foramina due to beam hardening artifactrelated to adjacent hardware. No intrathecal gas. SOFT TISSUES: Subcutaneous recent postoperative gas and edema. Paraspinalfluid density and few tiny foci of gas present is favored postoperative.There is mild edema adjacent to the iliopsoas musculature with small fociof gas along the right psoas muscle, also likely postoperative. Atheromatous calcification of the lower thoracic and abdominal aortawithout abdominal aortic aneurysm. Remainder of the visualizedparavertebral soft tissues are unremarkable IMPRESSION IMPRESSION: 1. Operative changes of posterior jarred and pedicle screw fixation L1-L5with posterolateral bone grafting. Intact hardware without abnormalmedialization of the pedicle screws, fracture, or surrounding osseouslucency. 2. No acute lumbar vertebral body compression deformity. 3. Subcutaneous and intramuscular gas and fluid in the operative bed isfavored postoperative in nature. 4. Significantly limited evaluation of the dorsal disc margins, spinalcanal and neural foramina due to artifact related to adjacent hardware.This can be further assessed with follow-up contrast-enhanced MRI of thelumbar spine as deemed clinically warranted. 5. Multilevel advanced disc degeneration throughout the lumbar spine,asymmetric at multiple levels due to scoliosis. REPORT SIGNED BY Janice Talavera M.D. Nj SCHWAB-Deonna CT ORDERABLE * XR PELVIS & HIP LATERAL BILAT (04/06/2023 10:07 AM FORM STRIPPER) Anatomical Region Laterality Modality ABD/Pelvis Computed Radiogr aphy 04/06/2023 10:0 8 AM FORM STRIPPER Impressions 04/06/2023 10:09 AM FORM STRIPPER IMPRESSION: 1. 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 No discrete acute bony pelvic or proximal femoral fracture visualized. REPORT SIGNED BY Janice Talavera M.D. Narrative 04/06/2023 10:09 AM FORM STRIPPER EXAM: ??XR PELVIS & HIP LATERAL BILAT DATE: 04/06/2023 9:58 AM CLINICAL DATA: ??Patient age: [age] years old. Pain. COMPARISON: Lumbar spine radiographs 04/02/2023 TECHNIQUE: AP view of the pelvis with crosstable lateral radiographs of both hips. INTERPRETATION: No diastasis of the sacroiliac joints or pubic symphysis. 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 No discrete acute bony pelvic fracture visualized. Degeneration of the bilateral hip joints with mild to moderate joint space narrowing. Grossly intact proximal femurs. No avascular necrosis. Nonspecific bowel gas pattern Procedure Note Janice Talavera MD - 04/06/2023 EXAM: XR PELVIS & HIP LATERAL BILAT DATE: 04/06/2023 9:58 AM CLINICAL DATA: Patient age: [age] years old. Pain. COMPARISON: Lumbar spine radiographs 04/02/2023 TECHNIQUE: AP view of the pelvis with crosstable lateral radiographs ofboth hips. INTERPRETATION: No diastasis of the sacroiliac joints or pubic symphysis. Suspect chronicmalunited or ununited fracture deformities of the left superior andinferior pubic rami and right inferior pubic ramus. No discrete acute bonypelvic fracture visualized. Degeneration of the bilateral hip joints withmild to moderate joint space narrowing. Grossly intact proximal femurs. Noavascular necrosis. Nonspecific bowel gas pattern IMPRESSION IMPRESSION: 1. Suspect chronic malunited or ununited fracture deformities of the leftsuperior and inferior pubic rami and right inferior pubic ramus. Nodiscrete acute bony pelvic or proximal femoral fracture visualized. REPORT SIGNED BY Janice Talavera M.D. Nj Thorne PA-C XRAY ORDERABLE * Hgb A1c (Glycosolated Hgb) (04/05/2023 7:07 PM FORM STRIPPER) Pathologist [facility] HBA1C (GLYCOSOLATED HGB) 5.1 <5.7 % 04/06/2023 12:57 PM FORM STRIPPER [facility] EAG (EST. AVERAGE GLUCOSE) 100 <117 mg/dL 04/06/2023 12:57 PM FORM STRIPPER [facility] Blood 04/05/2023 7:07 PM FORM STRIPPER 04/05/2023 7:34 PM FORM STRIPPER Chuck Carpenter MD CHEMISTRY ORDERABLE [facility] [address] [place] [address] * (ABNORMAL) CBC (Hgb,Hct,WBC,RBC,Platelet) (04/05/2023 7:07 PM FORM STRIPPER) Pathologist [facility] WBC 12.6(H) 4.3 - 10.8 K/uL 04/05/2023 7:52 PM [facility] RBC 3.05(L) 4.20 - 5.40 M/uL 04/05/2023 7:52 PM [facility] Hemoglobin 9.6(L) 12.0 - 16.0 gm/dL 04/05/2023 7:52 PM [facility] Hematocrit 28.7(L) 36.0 - 48.0 % 04/05/2023 7:52 PM [facility] MCV 94 80 - 100 fL 04/05/2023 7:52 PM [facility] MCH 32 27 - 33 pg 04/05/2023 7:52 PM [facility] MCHC 33 33 - 36 gm/dL 04/05/2023 7:52 PM [facility] RDW 13.1 11.5 - 14.5 % 04/05/2023 7:52 PM [facility] Platelet Count 483(H) 150 - 400 K/UL 04/05/2023 7:52 PM [facility] MPV 9.3 6.5 - 12 fL 04/05/2023 7:52 PM [facility] Blood 04/05/2023 7:07 PM [facility] 04/05/2023 7:34 PM [facility] Sergio Lara DO HEMATOLOGY ORDERABLE Performing Organization Address City/[facility]/ZIP Co de Phone Number [facility] [address] [place] [address] * (ABNORMAL) Hemoglobin (04/03/2023 7:00 AM [facility]) Only the most recent of4 resultswithin the time period is included. Hemoglobin 8.5(L) 12.0 - 16.0 gm/dL 04/03/2023 7:25 AM [facility] Blood 04/03/2023 7:00 AM [facility] 04/03/2023 7:17 AM [facility] Nj Thorne PA-C HEMATOLOGY ORDERA BLE [facility] [address] [place] [address] * XR SPINE LUMBAR ROUTINE (04/02/2023 10:43 AM [facility]) Anatomical Region Laterality Modality Spine Computed Radiogr aphy 04/02/2023 11:2 7 AM [facility] Impressions 04/02/2023 11:29 AM [facility] IMPRESSION: 1. Operative changes of posterior jarred and pedicle screw fixation L1-L5 with posterolateral bone graft material, grossly negative for postoperative purposes. Lumbar vertebral body alignment described in more detail above. 2. Old superior and inferior pubic rami fractures. REPORT SIGNED BY Janice Talavera M.D. Narrative 04/02/2023 11:29 AM [facility] EXAM: ??XR SPINE LUMBAR ROUTINE DATE: 04/02/2023 [...] Tube-SST (Lab Use Only) (04/02/2023 7:28 AM [facility]) Blood 04/02/2023 7:28 AM [facility] 04/02/2023 7:53 AM [facility] Bonita Estrada MD CHEMISTRY ORDERABLE [facility] [address], [place] [id number] * XR C-ARM SPINE (04/01/2023 10:36 AM [facility]) Anatomical Region Laterality Modality Computed Radiogr aphy 04/01/2023 12:3 5 PM [facility] Impressions 04/01/2023 12:37 PM [facility] IMPRESSION: 1. ??Procedural assistance. REPORT SIGNED BY DR. MARCUS JUNE Narrative 04/01/2023 12:37 PM [facility] EXAM: ??XR C-ARM SPINE DATE: ?? 04/01/2023 [...] XRAY ORDERABLE * Intubation (04/01/2023 8:15 AM [facility]) Narrative Monika Ireland APRN, CRNA - 04/01/2023 8:15 AM [facility] Monika Ireland APRN, CRNA ? 04/01/2023 ??8:27 [...] Confirm (Lab Use Only) (04/01/2023 6:47 AM [facility]) Group and Rh O Positive 04/01/2023 9:09 AM [facility] Blood 04/01/2023 6:47 AM [facility] 04/01/2023 7:26 AM [facility] Nj Thorne PA-C BLOOD BANK ORDERA BLE [facility] [id number] [place] [address] * Type and Screen (04/01/2023 6:46 AM [facility]) Group and Rh O Positive 04/01/2023 7:39 AM [facility] Antibody Screen Negative 04/01/2023 7:39 AM [facility] Blood 04/01/2023 6:46 AM [facility]PER 04/01/2023 6:50 AM [facility] Nj Thorne PA-C BLOOD BANK ORDERA BLE Performing Organization Address City/[facility]/ZIP Co de Phone Number [facility] [address] [facility] [place] [address] [facility] [address] [facility] [place] [address] * Protime/INR (04/01/2023 6:46 AM [facility]) INR 1.0 0.9 - 1.2 04/01/2023 7:06 AM [facility] Blood 04/01/2023 6:46 AM [facility]PER 04/01/2023 6:50 AM [facility] Nj Thorne PA-C COAGULATION ORDER ABLE Performing Organization Address [facility] Co de Phone Number [facility] [address] [facility] [place] [address] * Partial Thromboplastin Time (04/01/2023 6:46 AM [facility]PER) PTT 28.8 24.0 - 31.0 SEC. 04/01/2023 7:06 AM [facility] Blood 04/01/2023 6:46 AM [facility]IPPER 04/01/2023 6:50 AM [facility]PER Narrative [facility] - 04/01/2023 7:06 AM [facility]PER aPTT Therapeutic Reference Ranges: Argatroban protocol: 60 - 85 seconds Bivalirudin protocol: 43 - 71 seconds Nj Thorne PA-C COAGULATION ORDER ABLE Performing Organization Address [facility]/ZIP Co de Phone Number [facility] [address] [place] [address] * Hematocrit (04/01/2023 6:46 AM [facility]PER) Hematocrit 37.3 36.0 - 48.0 % 04/01/2023 7:07 AM [facility] Blood 04/01/2023 6:46 AM [facility]PER 04/01/2023 6:50 AM [facility] Nj Thorne PA-C HEMATOLOGY ORDERA BLE [facility] [address] [place] [address] * (ABNORMAL) POCT Glucose Meter (04/01/2023 6:12 AM [facility]) GLUCOSE WB METER 105(H) 60 - 100 mg/dL 04/01/2023 6:38 AM [facility] Blood 04/01/2023 6:12 AM [facility]M STRIPPER 04/01/2023 6:38 AM [facility]PER Isai Foss MD LAB POINT OF CARE TE ST RESULTS Performing Organization Address City/[facility]/ZIP Co de Phone Number [facility] [address] [place] [address] from Last 3 Months Advance Directives For more information, please contact: [phone] Latest Code Status on File Code Status Date Activated Date Inactivated Comments Full Code 04/05/2023 6:31 PM Question Answer Comments How was code status determined? Patient Code Status History Code Status Date Activated Date Inactivated Comments Full Code 04/02/2023 1:58 AM 04/03/2023 9:38 PM Question Answer Comments How was code status determined? Physician Abelardo leal Full Code 04/01/2023 5:53 AM 04/01/2023 11:19 AM Question Answer Comments How was code status determined? Physician Abelardo leal Not discussed Care Teams Assembler Relationship Specialty [place] [address] [place] [address] PCP - General Internal Medicine 04/02/23 Clinic, [facility] [address] [place] [id number] PCP - Primary Care Clinic 04/02/23
--- OUTSIDE RECORDS SUMMARY | 2023-04-07 09:27 | XMS_ITS | Encounter Summary ---
Author Name Unknown Organization [facility] Address [address] [place] [id number] Care Team Providers Care Cloth Examiner Hand Name Role Phone Carolynn Alvarado MD Primary Care Provider [phone] [facility] Unavailable Reason for Visit * Inpatient Admission (Routine) Specialty Diagnoses / Procedures Referred By Contac t Referred To Contact Diagnoses Acute pain of left lower extremity post op pain Referral ID Status Reason Start Date Expiration Date Visits Re quested Visits Authorized [id number] 1 1 Encounter Details Date Type Department Care Team (Latest Contact Info) Description 04/05/2023 5:15 PM [facility]ER METAL PATTERNS - Present Hospital Encounter [id number] [address] [place] [address] [id number] [place] [address] [place] [address] [id number] Chuck Carpenter MD [address] [place] [address] [id number] Acute pain of left lower extremity Social History Tobacco Use Types Packs/Day Years Used Date Smoking Tobacco: Never Smokeless Tobacco: Never Alcohol Use Standard Drinks/Week Comments Never 0 (1 standard drink = 0.6 oz pur e alcohol) [facility] Utilities Answer Date Recorded In the [...] money to buy more. Never true 04/05/19 Within the past 12 months, t he [...] place to sleep or slept in a residential (including now)? No 04/05/2023 Sex and Gender Information Value Date Recorded Sex Assigned at Female 03/11/2023 11:10 AM [employer] [employer]NS Gender Identity Female 03/11/2023 11:10 AM [employer] Sexual Orientation Straight 03/11/2023 11 :10 AM [employer] documented as of this encounter Last Filed Vital Signs Vital Sign Reading Time Taken Comments Blood Pressure 134/82 04/07/2023 8:44 AM [employer]NS Pulse 77 04/07/2023 8:44 AM [employer]NS Temperature 36.3 ??C (97.4 ??F) 04/07/2023 5:53 AM CS T Respiratory Rate 20 04/07/2023 8:44 AM [employer]NS Oxygen Saturation 98% 04/07/2023 8:44 AM [employer]NS Inhaled Oxygen Concentration - - Weight 61.2 kg (135 lb) 04/05/2023 5:45 PM [employer] Height 162.6 cm (5' 4) 04/05/2023 5:45 PM [employer]NS Body Mass Index 23.17 04/05/2023 5:45 PM [employer] documented in this encounter Progress Notes * Leena Madrid RN - 04/07/2023 1:40 AM CST Med-Surg Care Progression Note Type: Shift to shift summary Length of stay: 2 days Code Status: Full Code Primary Problem: POD #6 L1-L5 Posterior Fusion Summary:History of atrial fib. Discharged 04/04 and readmitted for back pain/ left leg pain. Startedon Decadron PO. Pelvis XR showed chronic pubic rami fracture. F- Feeding & Fluids: On a regular diet. A- Analgesic & Anticoagulation: Comfort Goal: Numeric, Verbal, Faces: 4 - Moderate Analgesic Scheduled Tylenol. Oxycodone, Robaxin, and Vistaril PRN. Anticoagulation/DVT prevention & plan Lovenox SQ. S- Skin: Noel Subcategory Concern(s): Sensory Perception: No Impairment Moisture: Rarely Moist Activity: Walks Occasionally Activity Interventions: Reposition every 2 hours Nutrition: Adequate Nutrition Interventions: Dietary supplement Mobility: Slightly Limited Mobility Interventions: Turning every 2 hrs Friction and Shear: No Apparent Problem Total Noel Score: 20: Incision site CDI with steri strips. T- Telemetry: Rhythm: Sinus Rhythm Ectopy: None No tele E- Emotional & Neuro: Participating in cares Neuro Alert and Oriented R- Respiratory: On room air H- Head OUT of Bed & Activity: Activate Fall Alert? (Enter 1 or 0): 1 Per report, up with SBA. PT/ OT. Early mobility Phases 1-4: Phase 4: Ambulation U- Urologic/bowel: No data recorded Voiding in bathroom. No BM this shift. G- Glycemic Control: Not applicable T- Treatment: Increase Mobility. Pain Control. PT/ OT. I- Invasive Devices: No PIV. D- Discharge: Anticipated location planning home with daughter. R METAL PATTERNS * Rachel Mason RN - 04/06/2023 10:52 PM CST Med-Surg Care Progression Note Type: Shift to shift summary Length of stay: 1 days Code Status: Full Code Primary Problem: acute left leg pain s/p L1-5 spinal fusion. Summary: reports pain is different/better today. Getting PO decadron. PMH: A fib. F- Feeding & Fluids: Tolerating regular diet. thin liquids. A- Analgesic & Anticoagulation: Comfort Goal: Numeric, Verbal, Faces: 4 - Moderate Analgesic PRN oxy given. Requesting to be woken up at night for PRN's. Given hot packs. Anticoagulation/DVT prevention & plan SCDs and Anticoagulant plan SQ Lovenox S- Skin: Noel Subcategory Concern(s): Sensory Perception: No Impairment Moisture: Rarely Moist Activity: Walks Occasionally Activity Interventions: Reposition every 2 hours Nutrition: Adequate Nutrition Interventions: Calorie intake Mobility: Slightly Limited Mobility Interventions: Low air loss support Friction and Shear: No Apparent Problem Total Noel Score: 20: Steri strips on back CDI. T- Telemetry: No tele E- Emotional & Neuro: Participating in cares Neuro Alert and Oriented R- Respiratory: On room air H- Head OUT of Bed & Activity: SBA. Grabs the wall while walking or Assistance's arm. U- Urologic/bowel: Voiding WNL in bathroom. G- Glycemic Control: Not applicable T- Treatment: Neuro surge following, pain control, PT/OT? I- Invasive Devices: removed PIV due to pain. D- Discharge: TBD R METAL PATTERNS * Andrey Dumont RN - 04/06/2023 2:30 PM CST Med-Surg Care Progression Note Type: Shift to shift summary Length of stay: 1 days Code Status: Full Code Primary Problem: acute left leg pain s/p L1-5 spinal fusion. Summary: Imaging completed this shift. Diet advanced. Steriods started. BP 129/86 Pulse (!) 108 Temp 98.3 ??F (36.8 ??C) Resp 17 Ht 5' 4 (1.626 m) Wt 61.2 kg (135 lb) SpO2 98% BMI 23.17 kg/m?? F- Feeding & Fluids: Tolerating regular diet, thin liquids. NPO most of day, recently ordered lunch. A- Analgesic & Anticoagulation: Comfort Goal: Numeric, Verbal, Faces: 4 - Moderate Analgesic PRN oxy 10mg given. Robaxin given. Good effect. Anticoagulation/DVT prevention & plan SCDs S- Skin: Noel Subcategory Concern(s): Sensory Perception: No Impairment Moisture: Rarely Moist Activity: Walks Occasionally Activity Interventions: Reposition every 2 hours Nutrition: Adequate Nutrition Interventions: Calorie intake Mobility: Slightly Limited Mobility Interventions: Low air loss support Friction and Shear: No Apparent Problem Total Noel Score: 20: No new skin issues noted on assessment. Steri strips on back CDi. T- Telemetry: No tele E- Emotional & Neuro: Participating in cares Neuro Alert and Oriented R- Respiratory: On room air H- Head OUT of Bed & Activity: SBA when up. Good ind. Bed mobility. U- Urologic/bowel: Voiding in bsc G- Glycemic Control: Not applicable T- Treatment: Neuro surge following, pain control, PT/OT? I- Invasive Devices: PIV x1. D- Discharge: TBD R METAL PATTERNS * Chuck Carpenter MD - 04/06/2023 10:27 AM CST Images from the original note were not included. HOSPITALIST DIVISION PROGRESS NOTE Date of admission: 04/05/2023 Length of stay: 1 ORIGINAL CHIEF COMPLAINT: Left leg pain SUBJECTIVE The patient states that she has been experiencing severe left leg pain with ambulation after she was discharged from recent lumbar spine surgery. She states the pain is not present when she is resting in certain positions and lying down, but becomes extreme and severe when she stands up and attempts to ambulate. She states that she has had poor sleep, she has been feeling more anxious, and overall has not returned back to her baseline level of functioning physically or mentally since the procedure. OBJECTIVE BP 129/86 Pulse (!) 108 Temp 98.3 ??F (36.8 ??C) Resp 17 Ht 5' 4 (1.626 m) Wt 61.2 kg (135 lb) SpO2 98% BMI 23.17 kg/m?? Intake/Output Summary (Last 24 hours) at 04/06/2023 1027 Last data filed at 04/05/2023 1754 Gross per 24 hour Intake 480 ml Output 300 ml Net 180 ml GENERAL APPEARANCE: She is awake, alert and in no acute distress. HEENT: Head - Normocephalic, atraumatic. Eyes - Normal lids and conjuntivae Ears - External canals normal. Nose - No deformity, without masses, no congestion. Oropharynx - Oral mucosa and pharynx normal, moist mucous membranes. NECK: Full range of motion, trachea midline RESPIRATORY: Lungs clear to auscultation bilaterally. CARDIOVASCULAR: Normal S1, normal S2, regular rhythm, without murmur. GASTROINTESTINAL: non distended HEME/LYMPH/IMMUNOLOGIC: no unusual bleeding or bruising. SKIN: Visible skin is warm, dry, with no mottling. NEUROLOGIC: Alert and oriented, tearful, appears anxious, talkative but she is interruptible, seemssomewhat distractible but generally answers questions appropriately and participates in exam without complication, moves all extremities. Non-focal exam. EXTREMITIES: No edema. Brisk capillary refill present. Results for orders placed or performed during the hospital encounter of 04/05/23 (from the past 24 hour(s)) CBC (Hgb,Hct,WBC,RBC,Platelet) Result Value Ref Range WBC 12.6 (H) 4.3 - 10.8 K/uL RBC 3.05 (L) 4.20 - 5.40 M/uL Hemoglobin 9.6 (L) 12.0 - 16.0 gm/dL Hematocrit 28.7 (L) 36.0 - 48.0 % MCV 94 80 - 100 fL MCH 32 27 - 33 pg MCHC 33 33 - 36 gm/dL RDW 13.1 11.5 - 14.5 % Platelet Count 483 (H) 150 - 400 K/UL MPV 9.3 6.5 - 12 fL Comprehensive Metabolic Panel Result Value Ref Range Sodium 138 136 - 145 mmol/L Potassium 4.3 3.4 - 5.1 mmol/L Chloride 104 98 - 108 mmol/L Carbon Dioxide 27 20 - 31 mmol/L BUN (Urea Nitro) 10 9 - 23 mg/dL Creatinine 0.51 (L) 0.55 - 1.02 mg/dL Est GFR (CKD-EPI) >60.00 >60.00 mL/min/1.73m2 Glucose 130 (H) 74 - 106 mg/dL Calcium, Serum 8.4 (L) 8.7 - 10.4 mg/dL Anion Gap 7.0 0.0 - 15.0 mmol/L Albumin 3.0 (L) 3.4 - 5.0 g/dL Bilirubin-Total 0.6 0.3 - 1.2 mg/dL Alkaline Phosphatase 145 (H) 46 - 116 U/L Protein Total 6.9 5.7 - 8.2 g/dL AST (SGOT) 44 (H) 13 - 40 U/L ALT 135 (H) 7 - 40 U/L XR PELVIS & HIP LATERAL BILAT Final Result IMPRESSION: 1. 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 No discrete acute bony pelvic or proximal femoral fracture visualized. REPORT SIGNED BY Janice Talavera M.D. CT Spine Lumbar w/o Contrast (Results Pending) ASSESSMENT Principal Problem: Acute pain of left lower extremity Surgical/Procedure Site Lower;Middle Back (Active) Incision Date: 03/31/23 Orientation: Lower;Middle Location: Back The patient is a 77-year-old female with a history of A-fib not on anticoagulation, chronic hypertension, hyperlipidemia, depression, insomnia, chronic back pain, recent lumbar spinal fusion surgery 4 days prior to arrival, presented to hospital with left leg pain. In the ED the patient was noted to have elevated WBC to 12.6, hemoglobin of 9.6 improved from priorto surgery, platelets 43. Electrolytes stable and normal, creatinine normal, elevated liver chemistries noted. Neurosurgery consulted. Patient started on Decadron. The following morning the neurosurgery team and recommended imaging including CT scan and x-ray of the low back and pelvis and left leg. Patient appeared to be anxious, hospitalist offered multiple medication interventions for this andit is suspected that anxiety and mild decompensated mental illness is playing at least some role inher presentation. She declined intervention at this time, waiting to hear recommendations from neurosurgery first. 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 Left leg pain -Neurosurgery consulted -Imaging per neurosurgery -CT lumbar spine without contrast -No immediate surgical interventions planned -Pelvis x-ray -Dexamethasone for total 48 hours -Vitamin D supplement -PT/OT -Morning CMP, CBC -One-time CK, trend if abnormal -Pain control plan per neurosurgery with the following recommendations: Maximum dose scheduled Tylenol Hydroxyzine as pain adjunct Increase home Lyrica dosing to 75 mg twice daily, further intensification if indicated We will not add gabapentin given the patient is on Lyrica Robaxin as needed, consider IV version Topical lidocaine, menthol cream Low-dose oral and IV opioids as last resort Leukocytosis, thrombocytosis Transaminitis, elevated AST, ALT, AP -Morning BMP, CBC -Check A1c for possible diabetic amyotrophy -Consider liver ultrasound pending course -Consider additional infectious workup pending course and CT imaging Suspect acute on chronic anxiety Chronic depression Chronic insomnia -Continue home Cymbalta 80 mg daily -Continue home hydroxyzine -As needed bedtime Ativan -Add additional benzodiazepine if patient is willing -Continue home desipramine Chronic A-fib not on anticoagulation Chronic hypertension, hyperlipidemia -Continue home amlodipine -Continue atenolol Diet: Regular DVT Prophylaxis: Lovenox GI Prophylaxis: Not indicated based on the patient's current presentation and risk factors. Bowel Regimen: Monitor for bowel movements and initiate as needed. Discharge Goals: Final recommendations from neurosurgery, final recommendations for PT/OT, stable vital signs, excellent pain control plan, stable lab findings. The patient should be eating, drinking, and toileting at or near their baseline prior to discharge. Chuck Carpenter MD R METAL PATTERNS * Collin Tristan RN - 04/06/2023 6:29 AM CST Med-Surg Care Progression Note Type: Shift to shift summary Length of stay: 1 days Code Status: Full Code Primary Problem: left leg pain L 1-5 spinal fusion Summary:pt direct admit from [facility] ED. Pt had back fusion last Friday and . Came to [facility] ED for severe left leg pain and recurrent afib. Afib converted to sinus after 2 doses of cardizem. Transferred to [facility] for evaluation for possible post op complication. Pt slept reported with minimal pain. F- Feeding & Fluids: Tolerating regular diet / thin liquids. NPO after MN for neurosurgery consult. A- Analgesic & Anticoagulation: Comfort Goal: Numeric, Verbal, Faces: 4 - Moderate Analgesic Prn oxycodone, vistaril, robaxin, scheduled tylenol Anticoagulation/DVT prevention & plan Anticoagulant plan s S- Skin: Noel Subcategory Concern(s): Sensory Perception: No Impairment Moisture: Rarely Moist Activity: Walks Occasionally Activity Interventions: Reposition every 2 hours Nutrition: Adequate Nutrition Interventions: Calorie intake Mobility: Slightly Limited Mobility Interventions: Turning every 2 hrs Friction and Shear: No Apparent Problem Total Noel Score: 20: Surgical Site C/D/, independent in bed. T- Telemetry: Rhythm: Sinus Rhythm Ectopy: None No tele E- Emotional & Neuro: Participating in cares Neuro Alert and Oriented R- Respiratory: On room air H- Head OUT of Bed & Activity: Activate Fall Alert? (Enter 1 or 0): 1 Ambulating BSC Early mobility Phases 1-4: Phase 2: Out of Bed/Transfers U- Urologic/bowel: No data recorded Voiding BSC G- Glycemic Control: Not applicable T- Treatment: pain management, neuro consult, labs , po steroid. I- Invasive Devices: PIV X 1 D- Discharge: TBD R METAL PATTERNS * Marco Lantigua RN - 04/05/2023 10:38 PM CST Med-Surg Care Progression Note Type: Shift to shift summary Length of stay: 0 days Code Status: Full Code Primary Problem: acute left leg pain s/p L1-5 spinal fusion. Summary: pt direct admit from [facility] ED. Pt had back fusion last Friday and discharged home. Came to [facility] ED for severe left leg pain and recurrent afib. Afib converted to sinus after 2 doses of cardizem. Transferred to [facility] for evaluation for possible post op complication. F- Feeding & Fluids: NPO after MN for neurosurgery consult. A- Analgesic & Anticoagulation: Comfort Goal: Numeric, Verbal, Faces: 4 - Moderate Analgesic Left leg pain when stands and walks. Oxycodone, Tylenol, Robaxin given with relief. Anticoagulation/DVT prevention & plan Lovenox on hold S- Skin: Noel Subcategory Concern(s): Sensory Perception: No Impairment Moisture: Rarely Moist Activity: Walks Occasionally Activity Interventions: Reposition self Nutrition: Adequate Nutrition Interventions: Mobility: Slightly Limited Mobility Interventions: Turning every 2 hrs: able to turn self in bed Friction and Shear: No Apparent Problem Total Noel Score: 20: T- Telemetry: Rhythm: Sinus Rhythm Ectopy: None No tele E- Emotional & Neuro: Participating in cares Neuro Alert and Oriented R- Respiratory: On room air H- Head OUT of Bed & Activity: Activate Fall Alert? (Enter 1 or 0): 1 bed mobilty Early mobility Phases 1-4: Phase 2: Out of Bed/Transfers to bSC U- Urologic/bowel: No data recorded Voiding in BSC G- Glycemic Control: Not applicable T- Treatment: Labs ,neuro consult, pain control I- Invasive Devices: PIV x 1 D- Discharge: TBD R METAL PATTERNS * Chuck Celestin PA-C - 04/05/2023 7:00 PM CST Spine note 77 yo female pod #4 L1-5 psf repair of incidental dural rent. Presenting with worsening LLE pain when standing. No bowel/bladder changes. LE motors intact. Plan t-rial of decadron. If not improving consider updated advanced imaging. Will formally consult in the morning. Chuck Celestin PA-C 7:05 PM [facility] Office: [phone] R METAL PATTERNS * Marco Lantigua RN - 04/05/2023 6:31 PM CST P. Admission A. Condition on Admit: alert. Patient/Family Concerns: Patient expressed concern about pain relief and diagnosis . I. Initial Interventions included: notified MD of patient arrival. Orientation to Unit: Patient oriented to initial physician orders, hourly rounding procedures, belongings checklist, unit and plan of care. R. Patient expressed understanding of information.. R METAL PATTERNS documented in this encounter H&P Notes * Sergio Lara DO - 04/05/2023 6:12 PM CST ADMISSION HISTORY AND PHYSICAL Patient Name: Michelle Franz [address]: [address] [place], [place] [id number] Age: 77 y.o. Sex: female Admission Date/Time: 04/05/2023 5:15 PM Primary Care Provider: Carolynn Alvarado MD Informant: patient CHIEF COMPLAINT: Left lower extremity Pain HPI: Ms. Franz is a 77-year-old female with medical conditions significant for atrial fibrillation (no AC) who presents to [facility] as a direct admit from [facility] ED on 04/05/23 for intractable left leg pain. Patient has recent medical history significant for elective L1-5 posterior spinal fusion on 04/01/23. Patient reports that at time of discharge on 04/03, patient continued to have significant left lower extremity pain, worsened with activity and ambulation. Over the following 2 days, patient reportsthat her left lower extremity pain became intractable and patient became unable to bear weight and ambulate, causing patient to present to [facility] ED for further medical evaluation. There was concern for postoperative complication, prompting patient to be transferred to [facility] for reevaluation of previous procedure. Over the past 2 days, patient denies any subjective fever, chills, peripheral neuropathy, paresthesias, any loss of sensation. Patient endorses intractable left lower extremity pain Patient denies any alcohol use history. Patient denies any tobacco use history. Patient denies any recreational substance use history. Patient is full code PAST MEDICAL HISTORY: Past Medical History: Diagnosis Date Chronic pain low back pain Heartburn HTN (hypertension) MRSA (methicillin resistant Staphylococcus aureus) 2014 12 yrs ago; nares (2014 w/outside facility) CLEARED by Infection Prevention 04/01/23 PAST SURGICAL HISTORY: Past Surgical History: Procedure Laterality Date HX CHOLECYSTECTOMY HX HYSTERECTOMY ORTHOPEDICS neck fusion x3 PRIOR TO ADMISSION MEDICATIONS: Prior to Admission Medications Prescriptions Last Dose Informant Patient Reported? Taking? DULoxetine (CYMBALTA) 20 mg oral delayed release capsule 03/31/2023 Patient Yes No Si capsule (20 mg) once daily. DULoxetine (CYMBALTA) 60 mg oral delayed release capsule 03/31/2023 Patient Yes No Sig: Take 1 capsule (60 mg) by mouth once daily. LORazepam (ATIVAN) 0.5 mg oral tablet 03/31/2023 Patient Yes No Sig: Take 2 tablets (1 mg) by mouth at bedtime as needed. amLODIPine (NORVASC) 10 mg oral tablet 04/01/2023 Patient Yes No Sig: Take 1 tablet (10 mg) by mouth Daily. atenolol (TENORMIN) 25 mg oral tablet 04/01/2023 Yes No Sig: Take 1 tablet (25 mg) by mouth once daily. calcium carbonate (TUMS) 200 mg calcium (500 mg) oral chew tab 04/01/2023 Patient No No Sig: Chew 1 tablet (500 mg) twice a day with breakfast and dinner. desipramine (NORPRAMIN) 25 mg oral tablet 03/31/2023 Patient Yes No Sig: Take 1 tablet (25 mg) by mouth Daily. ergocalciferol (VITAMIN D2) 1,250 mcg (50,000 unit) oral capsule 03/31/2023 Patient No No Sig: Take 1 capsule (50,000 Units) by mouth every 7 (seven) days. famotidine (PEPCID) 20 mg oral tablet 03/31/2023 Patient Yes No Sig: Take 1 tablet (20 mg) by mouth once daily. hydrOXYzine pamoate (VISTARIL) 25 mg oral capsule No No Sig: Take 1 capsule (25 mg) by mouth every 6 (six) hours as needed. medical supply, miscellaneous (ELECTRICAL BONE GROWTH STIMULATOR) supply Patient No No Sig: Company: [employer] for home use. oxyCODONE, immediate release, (ROXICODONE) 5 mg oral tablet No No Sig: Take 1-2 tablets (5-10 mg) by mouth every 6 (six) hours as needed. pregabalin (LYRICA) 25 mg oral capsule 03/31/2023 Patient Yes No Sig: Take 2 capsules (50 mg) by mouth twice a day. senna-docusate (SENNA-S) 8.6-50 mg oral tablet No No Sig: Take 1 tablet by mouth twice a day as needed. tiZANidine (ZANAFLEX) 2 mg oral tablet No No Sig: Take 2 tablets (4 mg) by mouth four times a day. Facility-Administered Medications: None ALLERGIES: Lisinopril FAMILY HISTORY: No family history on file. SOCIAL HISTORY: Social History Socioeconomic History Marital status: Spouse name: Not on file Number of children: Not on file Years of education: Not on file Highest education level: Not on file Occupational History Not on file Tobacco Use Smoking status: Never Smokeless tobacco: Never Substance and Sexual Activity Alcohol use: Never Drug use: Never Sexual activity: Not on file Other Topics Concern Not on file Social History Narrative Not on file Social Determinants of Health Food Insecurity: No Food Insecurity (04/01/2023) Hunger Vital Sign Worried About Running Out of Food in the Last Year: Never true Ran Out of Food in the Last Year: Never true Transportation Needs: No Transportation Needs (04/01/2023) PRAPARE - Transportation Lack of Transportation (Medical): No Lack of Transportation (Non-Medical): No Intimate Partner Violence: Not At Risk (04/01/2023) Humiliation, Afraid, Rape, and Kick questionnaire Fear of Current or Ex-Partner: No Emotionally Abused: No Physically Abused: No Sexually Abused: No Housing Stability: Low Risk (04/01/2023) Housing Stability Vital Sign Unable to Pay for Housing in the Last Year: No Number of Places Lived in the Last Year: 1 Unstable Housing in the Last Year: No REVIEW OF SYSTEMS: A comprehensive review of systems was negative except for items noted in the HPI/Subjective: Constitutional: Negative for weight loss and weight gain Eyes: Negative for visual disturbance Ears, nose, mouth, throat, face: Negative for nasal congestion Respiratory: Negative for sputum production, dyspnea Cardiovascular: Negative for chest pain, syncope Gastrointestinal: Negative for change in bowel habits Genitourinary: Negative for dysuria Musculoskeletal: Positive for left lower extremity pain PHYSICAL EXAM: BP 130/58 Pulse 80 Temp 98.1 ??F (36.7 ??C) Resp 16 Ht 5' 4 (1.626 m) Wt 61.2 kg (135 lb) SpO2 99% BMI 23.17 kg/m?? Gen: Alert, oriented, tearful HEENT: Head atraumatic. PERRLA. OP Clear. Moist Mucus Membranes. CV: RRR noted Pulm: Normal respiratory effort. Abd: non-distended. Clean steri-strips present, no serosanguineous or purulent drainage appreciated Extr: no rashes or bruises noted, no e/o trauma, no edema. Pysch: Interactive and appropriate Neuro: Alert. Non-focal. Moving all extremities. LABS: No results found for this or any previous visit (from the past 24 hour(s)). EKG: Ordered, pending at this time ADDITIONAL COMMENTS: I reviewed the patient's new clinical lab test results. Yes I reviewed the patient's medications. Yes I reviewed the patient's new imaging test results. Yes ASSESSMENT: Active Problems: Acute pain of left lower extremity Ms. Franz is a 77-year-old female with medical history significant for multiple back surgeries who presents to [facility] as an direct admission from [facility] for left lower extremity intractable pain.Patient was admitted for further evaluation for possible postoperative complication. PLAN: Left lower extremity pain #Recent L1-5 posterior spinal fusion on 04/01/23 #Chronic back pain Patient presents to [facility] as direct admission for possible post operative complication evaluation. Reports that she is unable to ambulate and bear weight upon left lower extremity without intractable pain. Retains sensory and pain involvement. Urine and bowel movements are not compromised - Neurosurgery consulted for lumbar spine evaluation -- Holding imaging at this time, pending NSGY evaluation - Decadron 6mg QD ordered - Regular diet, but NPO at midnight. Lovenox held - Monitor for loss of urinary or bowel control - Pain control ordered - PT/OT consulted, appreciate excellent recommendations Atrial fibrillation Not on anticoauglation due to pricing concerns. [id number] 4. 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 Dysthymic disorder #Chronic insomnia -continue duloxetine 80 mg daily, pregabalin 50 mg twice daily, and lorazepam 0.5 mg nightly CODE STATUS: Full Code DVT prophylaxis: Lovenox GI prophylaxis: Diet ACCESS: PIV RESTRAINTS: None DISPOSITION: Anticipated date of discharge >2 days, Criteria for discharge is complete evaluation of patient's left lower extremity pain for positive postoperative complication LENGTH OF STAY: IP - Anticipated LOS >2Midnights due to acuity of clinical presentation requiring inpatient level of care Time: 50 minutes Sergio Lara DO R METAL PATTERNS documented in this encounter Nursing Notes * Leena Madrid, RN - 04/07/2023 1:45 AM CST Problem: Mobility - Impaired Goal: Demonstrates ability to perform physical activity independently or with assistive devices as needed Outcome: Met this shift Problem: Confusion - Acute, Actual or Risk of Goal: Maintains/improves cognitive status within limits of condition Outcome: Met this shift Problem: Falls/Injury-Risk of Goal: Absence of Falls/Injury Outcome: Met this shift Flowsheets (Taken 04/07/2023 0130) Environmental Safety Interventions: Standard Interventions in Place Fall Risk Light on Outside Patient Room Fall Risk php consultant Door (NMR) High Risk Armband On (Green Bracelet) Hi-Lo Bed (Versa-Care) Mobility Safety Interventions: Standard Interventions in Place Stay Within Arms Reach Use Assistive Device When Patient Is Up Transfer/Gait Belt In Use When Patient Is Up Bed Alarm on Fall Prevention Slippers Problem: Anticoagulation, pharmacologic therapy Goal: Adheres to therapeutic regimen Outcome: Met this shift R METAL PATTERNS * Rachel Mason RN - 04/06/2023 4:50 PM CST Problem: Mobility - Impaired Goal: Demonstrates ability to perform physical activity independently or with assistive devices as needed Outcome: Met this shift Problem: Confusion - Acute, Actual or Risk of Goal: Maintains/improves cognitive status within limits of condition Outcome: Met this shift R METAL PATTERNS * Andrey Dumont RN - 04/06/2023 12:40 PM CST Problem: Mobility - Impaired Goal: Demonstrates ability to perform physical activity independently or with assistive devices as needed Outcome: Ongoing Goal: Verbalizes an understanding of immobility risks and complications Outcome: Ongoing Problem: Confusion - Acute, Actual or Risk of Goal: Maintains/improves cognitive status within limits of condition Outcome: Ongoing R METAL PATTERNS * Marco Lantigua RN - 04/05/2023 8:45 PM CST Problem: Mobility - Impaired Goal: Demonstrates ability to perform physical activity independently or with assistive devices as needed Outcome: Met this shift Problem: Confusion - Acute, Actual or Risk of Goal: Maintains/improves cognitive status within limits of condition Outcome: Met this shift Problem: Falls/Injury-Risk of Goal: Absence of Falls/Injury Outcome: Met this shift R METAL PATTERNS documented in this encounter ED Notes * Ricarda Lu MD - 04/05/2023 12:58 PM CST [facility] Medicine - Triage Acceptance Note: Time of call: 04/05/2023 12:58 PM Referring Clinician: Dr Mayer at [facility] Diagnosis: Upper left leg weakness Summary: Michelle Franz is a 77 y.o. female with pmhx of Afib not on anticoagulation presents with left leg cramp after she was discharged from [facility] on 04/04 for elective L1-5 posterior spinal fusion with instrumentation. In the ED it was noted she was in Afib with RVR, she was given a dose of cardizem with improvement of the HR to the 80s. Transfer is requested for evaluation of post surgical complication REJI Johansen ([facility]) was notified of case and approved of direct admission transfer to [facility] Relevant Physical Examination Items: Unremarkable, aside from unable to pivot using left leg Relevant Labs: WBC 15 Hgb 9.8 K 3.5 ALT 146 Trop negative CRP 16 Renal function normal Relevant Imaging: Cxay - unremarkable, unofficial read ED/outside hospital interventions: Decadron given Sub-Specialist Requested yes, neurosurgery Vitals: ED Initial Vitals Temp: n/a Pulse: n/a Resp: n/a BP: n/a SpO2: n/a Disposition: ICU / Med-surg / OBS inpatient, neurosurgery consult Please call Patient Placement at [phone] for assignment of patient to an appropriate ACM team once the patient arrives to the floor. Thank you. R METAL PATTERNS documented in this encounter Plan of Treatment Scheduled Orders Name Type Priority Associated Diagnoses Orde r Schedule Comprehensive Metabolic Panel Lab Routine DAILY AM until discontinued starting 04/07/2023, 1 completed CBC / Diff Lab Routine DAILY AM until discontinued starting 04/07/2023, 1 completed documented as of this encounter Procedures The patient is currently admitted. The information in this section might not be complete until the patient is discharged. Procedure Name Priority Date/Time Associated Diagnosis Comments CK TOTAL Routine 04/07/2023 7:01 AM [facility] COMPREHENSIVE METABOLIC PANEL Routine 04/07/2023 7:01 AM [facility] CBC/DIFF Routine 04/07/2023 7:[address] [address] SPINE LUMBAR W/O CON Routine 04/06/2023 12:10 PM [facility] [facility] XR PELVIS & HIP LATERAL BILAT Routine 04/06/2023 10:07 AM [facility] HBA1C / EAG Add On 04/05/2023 7:07 PM [facility] [employer] CK TOTAL Add On 04/05/2023 7:07 PM [facility] [facility] COMPREHENSIVE METABOLIC PANEL Routine 04/05/2023 7:07 PM [facility] CBC (HGB,HCT,WBC,RBC,PLATE LET) Routine 04/05/2023 7:07 PM [employer] [employer] documented in this encounter Results * CK Total (04/07/2023 7:01 AM [facility] [facility]) Only the most recent of2 resultswithin the time period is included. CK TOTAL 174 34 - 192 U/L 04/07/2023 8:01 AM [facility] Blood 04/07/2023 7:01 AM [facility] 04/07/2023 7:29 AM [facility] [facility] Chuck Carpenter MD CHEMISTRY ORDERABLE [facility] [address] [place] [address] * (ABNORMAL) CBC / Diff (04/07/2023 7:01 AM [facility]) [facility] Signature WBC 15.2(H) 4.3 - 10.8 K/uL 04/07/2023 7:34 AM [facility] RBC 2.90(L) 4.20 - 5.40 M/uL 04/07/2023 7:34 AM [facility] Hemoglobin 8.8(L) 12.0 - 16.0 gm/dL 04/07/2023 7:34 AM [facility] Hematocrit 26.9(L) 36.0 - 48.0 % 04/07/2023 7:34 AM [facility] MCV 93 80 - 100 fL 04/07/2023 7:34 AM [facility] MCH 30 27 - 33 pg 04/07/2023 7:34 AM [facility] MCHC 33 33 - 36 gm/dL 04/07/2023 7:34 AM [facility] RDW 13.0 11.5 - 14.5 % 04/07/2023 7:34 AM [facility] Platelet Count 468(H) 150 - 400 K/UL 04/07/2023 7:34 AM [facility] MPV 10.2 6.5 - 12 fL 04/07/2023 7:34 AM [facility] PMN % 80.8 % 04/07/2023 7:34 AM [facility] IG % 2.0(H) <=1.0 % 04/07/2023 7:34 AM [facility] Comment:Immature granulocyte s often indicate left shift when outside of normal limits. Lymphocyte % 11.8 % 04/07/2023 7:34 AM [facility] Monocyte % 5.0 % 04/07/2023 7:34 AM [facility] Eosinophil % 0.2 % 04/07/2023 7:34 AM [facility] Basophil % 0.2 % 04/07/2023 7:34 AM [facility] PMN Absolute 12.32(H) 1.80 - 7.80 K/uL 04/07/2023 7:34 AM [facility] Lymphocyte Absolute 1.80 1.00 - 4.00 K/uL 04/07/2023 7:34 AM [facility] Monocyte Absolute 0.76 0.00 - 1.00 K/uL 04/07/2023 7:34 AM [facility] Eosinophil Absolute 0.03 0.00 - 0.45 K/uL 04/07/2023 7:34 AM [facility] Basophil Absolute 0.03 0.00 - 0.20 K/uL 04/07/2023 7:34 AM [facility] Nucl RBC % 0.0 0.0 - 0.0 /100 WBC 04/07/2023 7:34 AM [facility] Nucl RBC Absolute 0.00 0.00 - 0.00 K/uL 04/07/2023 7:34 AM [facility] Blood 04/07/2023 7:01 AM [facility] 04/07/2023 7:30 AM [facility] Chuck Carpenter MD HEMATOLOGY ORDERABLE [facility] [address] [place] [address] * (ABNORMAL) Comprehensive Metabolic Panel (04/07/2023 7:01 AM [facility]) Only the most recent of2 resultswithin the time period is included. Sodium 136 136 - 145 mmol/L 04/07/2023 8:01 AM [facility] Potassium 4.2 3.4 - 5.1 mmol/L 04/07/2023 8:01 AM [facility] Chloride 103 98 - 108 mmol/L 04/07/2023 8:01 AM [facility] Carbon Dioxide 27 20 - 31 mmol/L 04/07/2023 8:01 AM [facility] BUN (Urea Nitro) 20 9 - 23 mg/dL 04/07/2023 8:01 AM [facility] Creatinine 0.66 0.55 - 1.02 mg/dL 04/07/2023 8:01 AM [facility] Est GFR (CKD-EPI) >60.00 >60.00 mL/min/1. 73m2 04/07/2023 8:01 AM [facility] Comment:Calculation based on the Chronic Kidney Disease Epidemiology Collaboration (CKD-EPI) equation refit without adjustment for race. Glucose 147(H) 74 - 106 mg/dL 04/07/2023 8:01 AM [facility] Calcium, Serum 8.2(L) 8.7 - 10.4 mg/dL 04/07/2023 8:01 AM [facility] Anion Gap 6.0 0.0 - 15.0 mmol/L 04/07/2023 8:01 AM [facility] Albumin 2.8(L) 3.4 - 5.0 g/dL 04/07/2023 8:01 AM [facility] Bilirubin-Total 0.3 0.3 - 1.2 mg/dL 04/07/2023 8:01 AM [facility] Alkaline Phosphatase 107 46 - 116 U/L 04/07/2023 8:01 AM [facility] Protein Total 6.3 5.7 - 8.2 g/dL 04/07/2023 8:01 AM [facility] AST (SGOT) 22 13 - 40 U/L 04/07/2023 8:01 AM [facility] ALT 87(H) 7 - 40 U/L 04/07/2023 8:01 AM [facility] Blood 04/07/2023 7:01 AM [facility] 04/07/2023 7:29 AM [facility] Chuck Carpenter MD CHEMISTRY ORDERABLE Performing Organization Address City/State/[facility] Co de Phone Number [facility] [address], [place] [id number] * CT Spine Lumbar w/o Contrast (04/06/2023 12:10 PM [facility] [facility]) Anatomical Region Laterality Modality Spine Computed Tomogra phy 04/06/2023 12:0 6 PM [facility] Impressions 04/06/2023 12:22 PM [facility] IMPRESSION: 1. Operative changes of posterior rei and pedicle screw fixation L1-L5 with posterolateral [...] Janice Talavera M.D. Narrative 04/06/2023 12:22 PM [facility] EXAM: ??CT SPINE LUMBAR W/O CON DATE: [...] have been prior operative changes of posterior rei and pedicle screw fixation from L1-L5 with [...] have been prior operative changes of posterior eri and pedicle screwfixation from L1-L5 with posterolateral [...] IMPRESSION IMPRESSION: 1. Operative changes of posterior rei and pedicle screw fixation L1-L5with posterolateral bone [...] BY Janice Talavera M.D. Nj Thorne PA-C CT ORDERABLE * XR PELVIS & HIP LATERAL BILAT (04/06/2023 10:07 AM [facility]) Anatomical Region Laterality Modality ABD/Pelvis Computed Radiogr aphy 04/06/2023 10:0 8 AM [facility] Impressions 04/06/2023 10:09 AM [facility] [facility] IMPRESSION: 1. 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 No discrete acute bony pelvic or proximal femoral fracture visualized. REPORT SIGNED BY Janice Talavera M.D. Narrative 04/06/2023 10:09 AM [facility] EXAM: ??XR PELVIS & HIP LATERAL BILAT [...] Hgb A1c (Glycosolated Hgb) (04/05/2023 7:07 PM [facility]) HBA1C (GLYCOSOLATED HGB) 5.1 <5.7 % 04/06/2023 12:57 PM [facility] EAG (EST. AVERAGE GLUCOSE) 100 <117 mg/dL 04/06/2023 12:57 PM [facility] Blood 04/05/2023 7:07 PM [facility] [facility] 04/05/2023 7:34 PM [facility] Chuck Carpenter MD CHEMISTRY ORDERABLE [facility] [address] [id number] * (ABNORMAL) CBC (Hgb,Hct,WBC,RBC,Platelet) (04/05/2023 7:07 PM [facility] [facility]) WBC 12.6(H) 4.3 - 10.8 K/uL 04/05/2023 7:52 PM [facility] RBC 3.05(L) 4.20 - 5.40 M/uL 04/05/2023 7:52 PM [facility] Hemoglobin 9.6(L) 12.0 - 16.0 gm/dL 04/05/2023 7:52 PM [facility] Hematocrit 28.7(L) 36.0 - 48.0 % 04/05/2023 7:52 PM [facility] MCV 94 80 - 100 fL 04/05/2023 7:52 PM [facility] MCH 32 27 - 33 pg 04/05/2023 7:52 PM [facility] MCHC 33 33 - 36 gm/dL 04/05/2023 7:52 PM [facility] RDW 13.1 11.5 - 14.5 % 04/05/2023 7:52 PM [facility] Platelet Count 483(H) 150 - 400 K/UL 04/05/2023 7:52 PM [facility] MPV 9.3 6.5 - 12 fL 04/05/2023 7:52 PM [facility] Blood 04/05/2023 7:07 PM [facility] [employer] [facility] 04/05/2023 7:34 PM [facility] [facility] Sergio Lara DO HEMATOLOGY ORDERABLE [facility] [address] [place] [id number] documented in this encounter Visit Diagnoses Diagnosis Acute pain of left lower extremity- Primary documented in this encounter Admitting Diagnoses Diagnosis Acute pain of left lower extremity documented in this encounter Administered Medications Active Administered Medications - up to 3 most recent administrations Medication Order MAR Action Action Date Dose Rate Site saline FLUSH syringe 10 mL 10 mL, Intravenous, EVERY 8 HOURS, First dose on 04/05/23 at 2200, Until Discontinued Given 04/06/2023 2:00 PM [facility] [employer] 10 mL Given 04/05/2023 11:54 PM [facility] [facility] 10 mL acetaminophen (TYLENOL) rectal suppository 650 mg 650 mg, Rectal, EVERY 6 HOURS (NS), First dose on 04/05/23 at 1930, Until Discontinued acetaminophen (TYLENOL) tablet 1,000 mg 1,000 mg, oral, EVERY 6 HOURS (NS), First dose on [facility] 04/05/23 at 1930, Until Discontinued Given 04/07/2023 8:44 AM [facility] 1,000 mg Given 04/07/2023 1:32 AM [facility] [facility] 1,000 mg Given 04/06/2023 7:23 PM [employer] 1,000 mg amLODIPine (NORVASC) tablet 10 mg 10 mg, oral, DAILY, First dose on 04/05/23 at 1930, Until Discontinued Given 04/07/2023 8:44 AM [facility] 10 mg Given 04/06/2023 8:45 AM [facility] 10 mg Given 04/05/2023 8:14 PM [facility] [facility] 10 mg atenolol (TENORMIN) tablet 25 mg 25 mg, oral, DAILY, First dose on 04/05/23 at 1930, Until Discontinued Given 04/07/2023 8:44 AM [facility] 25 mg Given 04/06/2023 8:45 AM [facility] 25 mg calcium carbonate (TUMS) chewable tablet 500 mg 500 mg (1 tablet), oral, TWICE A DAY WITH BREAKFAST AND DINNER, First dose on 04/05/23 at 1930, Until Discontinued Given 04/07/2023 8:44 AM [facility] 500 mg Given 04/06/2023 4:44 PM [facility] [facility] 500 mg desipramine (Norpramin) tablet 25 mg 25 mg, oral, AT BEDTIME, First dose on 04/05/23 at 2200, Until Discontinued Given 04/05/2023 11:52 PM [facility] [facility] 25 mg dexAMETHasone (DECADRON) tablet 4 mg 4 mg, oral, EVERY 6 HOURS, 8 doses, First dose on 04/06/23 at 1400, Last dose on Fri04/08/23 at 0800 Given 04/07/2023 8:44 AM [facility] 4 mg Given 04/07/2023 1:32 AM [facility] [facility] 4 mg Given 04/06/2023 7:23 PM [facility] [facility] 4 mg DULoxetine (CYMBALTA) delayed release capsule 20 mg 20 mg, oral, DAILY, First dose on 04/05/23 at 1930, Until Discontinued Given 04/06/2023 7:27 PM [facility] [facility] 20 mg Given 04/05/2023 8:17 PM [facility] [facility] 20 mg DULoxetine (CYMBALTA) delayed release capsule 60 mg 60 mg, oral, DAILY, First dose on 04/05/23 at 1930, Until Discontinued Given 04/06/2023 7:26 PM [facility] [facility] 60 mg Given 04/05/2023 8:14 PM [facility] 60 mg ergocalciferol (vitamin D2) capsule 50,000 Units 50,000 Units, oral, EVERY 7 DAYS, First dose on Fri04/07/23 at 0800, Until Discontinued Given 04/07/2023 8:44 AM [facility] [facility] 50,000 Units famotidine (PEPCID) tablet 20 mg 20 mg, oral, DAILY, First dose on 04/05/23 at 1930, Until Discontinued Given 04/07/2023 8:44 AM [facility] 20 mg Given 04/06/2023 8:44 AM [facility] 20 mg lidocaine 4% (Salonpas) adhesive patch, medicated 1-3 patch 1-3 patch, Transdermal, DAILY, First dose on Fri04/06/23 at 1045, Until Discontinued LORazepam (ATIVAN) tablet 1 mg 1 mg, oral, AT BEDTIME NEEDED, Starting on 04/05/23 at 1826, Until Discontinued, anxiety, sleep Given 04/06/2023 11:09 PM [facility] 1 mg Given 04/05/2023 11:23 PM [facility] 1 mg methocarbamoL (ROBAXIN) tablet 500 mg 500 mg, oral, EVERY 6 HOURS NEEDED, Starting on 04/05/23 at 1828, Until Discontinued, muscle spasm Given 04/07/2023 1:32 AM [facility] 500 mg Given 04/06/2023 5:25 PM [facility] [facility] 500 mg Given 04/06/2023 11:06 AM [facility] 500 mg methyl salicylate-menthol (BENGAY) topical cream topical, THREE TIMES A DAY NEEDED, Starting on 04/06/23 at 1039, Until Discontinued, pain ondansetron (ZOFRAN) disintegrating tablet 4-8 mg 4-8 mg, oral, EVERY 8 HOURS NEEDED, Starting on 04/05/23 at 1829, Until Discontinued, nausea & vomiting ondansetron (ZOFRAN) injection 4-8 mg 4-8 mg, Intravenous, EVERY 8 HOURS NEEDED, Starting on 04/05/23 at 1829, Until Discontinued, nausea & vomiting oxyCODONE (immediate release) (ROXICODONE) tablet 5-10 mg 5-10 mg, oral, EVERY 4 HOURS NEEDED, Starting on 04/05/23 at 1831, Until Discontinued, Pain, when taking PO Given 04/07/2023 5:28 AM [facility] 10 mg Given 04/07/2023 1:32 AM [facility] 10 mg Given 04/06/2023 9:50 PM [facility] 10 mg pregabalin (LYRICA) capsule 75 mg 75 mg, oral, TWICE A DAY, First dose (after last modification) on 04/06/23 at 2000, Until Discontinued Given 04/07/2023 8:44 AM [facility] 75 mg Given 04/06/2023 7:22 PM [facility] 75 mg Inactive Administered Medications - up to 3 most recent administrations Medication Order MAR Action Action Date Dose Rate Site dexAMETHasone (DECADRON) tablet 6 mg 6 mg, oral, DAILY, First dose on 04/05/23 at 1930, Until Discontinued Given 04/06/2023 8:44 AM [facility] 6 mg Given 04/05/2023 8:12 PM [facility] [facility] 6 mg pregabalin (LYRICA) capsule 50 mg 50 mg, oral, TWICE A DAY, First dose on 04/05/23 at 2000, Until Discontinued Given 04/05/2023 8:14 PM [facility] 50 mg documented in this encounter Active and Recently Administered Medications Times are shown in [facility]. Scheduled Medication Order 04/05/2023 04/06/2023 04/07/2023 saline FLUSH syringe 10 mL 10 mL, Intravenous, EVERY 8 HOURS, First dose on 04/05/23 at 2200, Until Discontinued 8746 (Given - Provider: Collin Tristan RN) 0651 (Canceled Entry - Provider: Collin Tristan RN)1400 (Given - Provider: Andrey Dumont RN)2200 (Not Given - Provider: Rachel Mason RN - Reason: Clinically appropriate (comment)) 0600 (Canceled Entry - Provider: Leena Madrid RN - Comment: No PIV)1400 (Due)2200 (Due) acetaminophen (TYLENOL) rectal suppository 650 mg(Linked Group 1) 650 mg, Rectal, EVERY 6 HOURS (NS), First dose on 04/05/23 at 1930, Until Discontinued 2014 (See Alternative - Provider: Marco Lantigua RN) 0130 (See Alternative - Provider: Collin Tristan RN)0913 (See Alternative - Provider: Andrey Dumont RN)1502 (See Alternative - Provider: Andrey Dumont RN)192 (See Alternative - Provider: Rachel Mason RN) 013 (See Alternative - Provider: Leena Madrid RN)0844 (See Alternative - Provider: Aspen Gambino RN)133 (Due)1929 (Due) acetaminophen (TYLENOL) tablet 1,000 mg(Linked Group 1) 1,000 mg, oral, EVERY 6 HOURS (NS), First dose on 04/05/23 at 1930, Until Discontinued 2014 (Given - Provider: Marco Lantigua RN) 0130 (Declined - Provider: Collin Tristan RN)0913 (Given - Provider: Andrey Dumont RN)1502 (Given - Provider: Andrey Dumont RN)192 (Given - Provider: Rachel Mason RN) 013 (Given - Provider: Leena Madrid RN)0844 (Given - Provider: Aspen Gambino RN)1330 (Due)1929 (Due) amLODIPine (NORVASC) tablet 10 mg 10 mg, oral, DAILY, First dose on 04/05/23 at 1930, Until Discontinued 2013 (Given - Provider: Marco Lantigua RN) 0845 (Given - Provider: Janice Mooney RN) 0844 (Given - Provider: Aspen Gambino RN) atenolol (TENORMIN) tablet 25 mg 25 mg, oral, DAILY, First dose on 04/05/23 at 1930, Until Discontinued 1929 (Declined - Provider: Marco Lantigua RN - Comment: said she had metoprolol today) 0845 (Given - Provider: Janice Mooney RN) 0844 (Given - Provider: Aspen Gambino RN) calcium carbonate (TUMS) chewable tablet 500 mg 500 mg (1 tablet), oral, TWICE A DAY WITH BREAKFAST AND DINNER, First dose on 04/05/23 at 1930, Until Discontinued 1929 (Declined - Provider: Marco Lantigua RN) 0843 (Declined - Provider: Janice Mooney RN)164 (Given - Provider: Rachel Mason RN) 0844 (Given - Provider: Aspen Gambino RN)1700 (Due) desipramine (Norpramin) tablet 25 mg 25 mg, oral, AT BEDTIME, First dose on 04/05/23 at 2200, Until Discontinued 2351 (Given - Provider: Collin Tristan RN) 2200 (Declined - Provider: Rachel Mason RN) 0800 (Due - Provider: Sergey Barclay, Pharm D) dexAMETHasone (DECADRON) tablet 4 mg 4 mg, oral, EVERY 6 HOURS, 8 doses, First dose on Fri04/06/23 at 1400, Last dose on Fri04/08/23 at 0800 1320 (Given - Provider: Andrey Dumont RN)192 (Given - Provider: Rachel Mason RN) 0132 (Given - Provider: Leena Madrid RN)0844 (Given - Provider: Aspen Gambino RN)1400 (Due)1999 (Due) dexAMETHasone (DECADRON) tablet 6 mg (CANCELED) 6 mg, oral, DAILY, First dose on 04/05/23 at 1930, Until Discontinued 2011 (Given - Provider: Marco Lantigua RN) 0844 (Given - Provider: Janice Mooney RN) DULoxetine (CYMBALTA) delayed release capsule 20 mg 20 mg, oral, DAILY, First dose on 04/05/23 at 1930, Until Discontinued 2016 (Given - Provider: Marco Lantigua RN) 0844 (Declined - Provider: Janice Mooney RN - Comment: wants NOC)192 (Given - Provider: Rachel Mason RN) 1999 (Due - Provider: Alfonso Alex, Pharm D) DULoxetine (CYMBALTA) delayed release capsule 60 mg 60 mg, oral, DAILY, First dose on 04/05/23 at 1930, Until Discontinued 2013 (Given - Provider: Marco Lantigua RN) 0844 (Declined - Provider: Janice Mooney RN - Comment: jeannine DUNBAR)1925 (Given - Provider: Rachel Mason RN) 1999 (Due - Provider: Alfonso Alex, Pharm D) enoxaparin (LOVENOX) injection 40 mg 40 mg, Subcutaneous, DAILY, First dose on 04/05/23 at 1845, Until Discontinued, The minimum weight for this order is 35 kg. For 1 mg/kg dose patients >190 kg, consider using an unfractionated heparin infusion. For 1.5 mg/kg dose patients >125 kg, use enoxaparin 1 mg/kg q12h per dose rounding guidelines. This medication has a Blackbox Warning. Click the formulary reference link for more information. 183 (Held by provider - Provider: Sergio Lara DO - Reason: Procedure)1845 (Automatically Held - Provider: Sergio Lara DO) 0800 (Canceled Entry - Provider: Janice Mooney RN)1037 (Unheld by provider - Provider: Chuck Carpenter MD) 0847 (Declined - Provider: Aspen Gambino RN) ergocalciferol (vitamin D2) capsule 50,000 Units 50,000 Units, oral, EVERY 7 DAYS, First dose on Fri04/07/23 at 0800, Until Discontinued 0844 (Given - Provider: Aspen Gambino RN) famotidine (PEPCID) tablet 20 mg 20 mg, oral, DAILY, First dose on 04/05/23 at 1930, Until Discontinued 1929 (Declined - Provider: Marco Lantigua RN) 0844 (Given - Provider: Janice Mooney RN) 0844 (Given - Provider: Aspen Gambino RN) lidocaine 4% (Salonpas) adhesive patch, medicated 1-3 patch 1-3 patch, Transdermal, DAILY, First dose on Fri04/06/23 at 1045, Until Discontinued 1045 (Declined - Provider: Andrey Dumont RN) 0848 (Declined - Provider: Aspen Gambino, ANGELES) pregabalin (LYRICA) capsule 50 mg (CANCELED) 50 mg, oral, TWICE A DAY, First dose on 04/05/23 at 2000, Until Discontinued 2013 (Given - Provider: Marco Lantigua RN) 0844 (Declined - Provider: Janice Mooney RN) pregabalin (LYRICA) capsule 75 mg 75 mg, oral, TWICE A DAY, First dose (after last modification) on 04/06/23 at 2000, Until Discontinued 1921 (Given - Provider: Rachel Mason RN) 0844 (Given - Provider: Aspen Gambino RN)1999 (Due) PRN Medication Order 04/05/2023 04/06/2023 04/07/2023 saline FLUSH syringe 10 mL 10 mL, Intravenous, NEEDED, Starting on 04/05/23 at 1828, Until Discontinued, Line Care HYDROmorphone (DILAUDID) syringe 0.5-1 mg 0.5-1 mg, Intravenous, EVERY 2 HOURS NEEDED, Starting on 04/05/23 at 1827, Until Discontinued, Pain, when NOT taking PO hydrOXYzine pamoate (Vistaril) capsule 25 mg 25 mg, oral, EVERY 6 HOURS NEEDED, Starting on 04/05/23 at 1826, Until Discontinued, anxiety, Adjuvant to pain management 0527 (Declined - Provider: Leena Madrid RN) lidocaine (LMX-4) topical cream 1 Application topical, NEEDED, Starting on 04/05/23 at 1828, Until Discontinued, IV start or restart if patient prefers a needleless local anesthetic. lidocaine / sod bicarb (buffered lidocaine) syringe for IV starts 0.1-0.3 mL 0.1-0.3 mL, Intradermal, NEEDED, Starting on 04/05/23 at 1828, Until Discontinued, IV line placement, IV start or restart lidocaine 1% injection (conc: 10 mg/mL) 0.1-0.3 mL 0.1-0.3 mL, Intradermal, NEEDED, Starting on 04/05/23 at 1828, Until Discontinued, Local Anesthesia, IV start or restart LORazepam (ATIVAN) tablet 1 mg 1 mg, oral, AT BEDTIME NEEDED, Starting on 04/05/23 at 1826, Until Discontinued, anxiety, sleep 232 (Given - Provider: Collin Tristan RN) 2309 (Given - Provider: Rachel Maosn, ANGELES) methocarbamoL (ROBAXIN) tablet 500 mg 500 mg, oral, EVERY 6 HOURS NEEDED, Starting on 04/05/23 at 1828, Until Discontinued, muscle spasm 2014 (Given - Provider: Marco Lantigua RN) 110 (Given - Provider: Andrey Dumont, ANGELES)172 (Given - Provider: Rachel Mason, ANGELES) 013 (Given - Provider: Leena Madrid, ANGELES) methyl salicylate-menthol (BENGAY) topical cream topical, THREE TIMES A DAY NEEDED, Starting on 04/06/23 at 1039, Until Discontinued, pain naloxone (NARCAN) injection 0.1 mg 0.1 mg, Intravenous, EVERY 1 MINUTE PRN, Starting on 04/05/23 at 1827, Until Discontinued, Opiate Reversal ondansetron (ZOFRAN) disintegrating tablet 4-8 mg(Linked Group 2) 4-8 mg, oral, EVERY 8 HOURS NEEDED, Starting on 04/05/23 at 1829, Until Discontinued, nausea & vomiting ondansetron (ZOFRAN) injection 4-8 mg(Linked Group 2) 4-8 mg, Intravenous, EVERY 8 HOURS NEEDED, Starting on 04/05/23 at 1829, Until Discontinued, nausea & vomiting oxyCODONE (immediate release) (ROXICODONE) tablet 5-10 mg 5-10 mg, oral, EVERY 4 HOURS NEEDED, Starting on 04/05/23 at 1831, Until Discontinued, Pain, when taking PO 2013 (Given - Provider: Marco Lantigua RN) 0845 (Given - Provider: Janice Mooney RN)1320 (Given - Provider: Andrey Dumont RN)1322 (Given - Provider: Andrey Dumont RN)172 (Given - Provider: Rachel Mason, ANGELES)2150 (Given - Provider: Rachel Mason RN) 013 (Given - Provider: Leena Madrid RN)0528 (Given - Provider: Leena Madrid RN) Linked Groups Order Group 1: acetaminophen (TYLENOL) tablet 1,000 mgJump to med 1,000 mg, oral, EVERY 6 HOURS (NS), First dose on 04/05/23 at 1930, Until Discontinued Or acetaminophen (TYLENOL) rectal suppository 650 mgJump to med 650 mg, Rectal, EVERY 6 HOURS (NS), First dose on 04/05/23 at 1930, Until Discontinued Group 2: ondansetron (ZOFRAN) injection 4-8 mgJump to med 4-8 mg, Intravenous, EVERY 8 HOURS NEEDED, Starting on 04/05/23 at 1829, Until Discontinued, nausea & vomiting Or ondansetron (ZOFRAN) disintegrating tablet 4-8 mgJump to med 4-8 mg, oral, EVERY 8 HOURS NEEDED, Starting on 04/05/23 at 1829, Until Discontinued, nausea & vomiting documented in this encounter Care Teams Cloth Examiner Hand Relationship Specialty Start [place] [address] [place] [address] PCP - General Internal Medicine 04/02/23 Clinic, [facility] [id number] [place] [address] PCP - Primary Care Clinic 04/02/23 documented as of this encounter
--- OUTSIDE RECORDS SUMMARY | 2023-04-07 09:27 | XMS_ITS | Encounter Summary ---
Author Name Unknown Organization [facility] Address [address] [place] [address] Care Team Providers Care Business Employment Specialist Name Role Phone Carolynn Alvarado MD Primary Care Provider [phone] Carolynn Alvarado MD Primary Care Provider [phone] [facility] Unavailable Reason for Referral * (Routine) - Open Specialty Diagnoses / Procedures Referred By Contac t Referred To Contact Procedures Diet: Level 7 Regular Trevon Buenrostro PA-C [address] [address] Referral ID Status Reason Start Date Expiration Date Visits Re quested Visits Authorized [id number] Open 04/03/2023 1 1 ROL EQUIPMENT ELECTRICIAN * (Routine) - Open Specialty Diagnoses / Procedures Referred By Contac t Referred To Contact Procedures Discharge Instructions Trevon Buenrostro PA-C [address] [address] Referral ID Status Reason Start Date Expiration Date Visits Re quested Visits Authorized [id number] Open 04/03/2023 1 1 ROL EQUIPMENT ELECTRICIAN * (Routine) - Open Specialty Diagnoses / Procedures Referred By Contac t Referred To Contact Procedures Discharge Instructions Trevon Buenrostro PA-C [address] [address] Referral ID Status Reason Start Date Expiration Date Visits Re quested Visits Authorized [id number] Open 04/03/2023 1 1 ROL EQUIPMENT ELECTRICIAN * (Routine) - Open Specialty Diagnoses / Procedures Referred By Contac t Referred To Contact Procedures Discharge Instructions Trevon Buenrostro PA-C [address] [address] Referral ID Status Reason Start Date Expiration Date Visits Re quested Visits Authorized [id number] Open 04/03/2023 1 1 ROL EQUIPMENT ELECTRICIAN * (Routine) - Open Specialty Diagnoses / Procedures Referred By Contac t Referred To Contact Procedures Dressing Change Trevon Buenrostro PA-C [address] [address] Referral ID Status Reason Start Date Expiration Date Visits Re quested Visits Authorized [id number] Open 04/03/2023 1 1 ROL EQUIPMENT ELECTRICIAN * (Routine) - Open Specialty Diagnoses / Procedures Referred By Contac t Referred To Contact Procedures Dressing Change Trevon Buenrostro PA-C [address] [address] Referral ID Status Reason Start Date Expiration Date Visits Re quested Visits Authorized [id number] Open 04/03/2023 1 1 ROL EQUIPMENT ELECTRICIAN * (Routine) - Open Specialty Diagnoses / Procedures Referred By Contac t Referred To Contact Procedures Discharge Instructions Trevon Buenrostro PA-C [address] [address] Referral ID Status Reason Start Date Expiration Date Visits Re quested Visits Authorized [id number] Open 04/03/2023 1 1 ROL EQUIPMENT ELECTRICIAN * (Routine) - Open Specialty Diagnoses / Procedures Referred By Contac t Referred To Contact Procedures Shower Trevon Buenrostro PA-C [address] [address] Referral ID Status Reason Start Date Expiration Date Visits Re quested Visits Authorized [id number] Open 04/03/2023 1 1 ROL EQUIPMENT ELECTRICIAN * (Routine) - Open Specialty Diagnoses / Procedures Referred By Contac t Referred To Contact Procedures Discharge Instructions Trevon Buenrostro PA-C [address] [address] Referral ID Status Reason Start Date Expiration Date Visits Re quested Visits Authorized [id number] Open 04/03/2023 1 1 ROL EQUIPMENT ELECTRICIAN * (Routine) - Open Specialty Diagnoses / Procedures Referred By Contac t Referred To Contact Procedures Activity as tolerated Trevon Buenrostro PA-C [address] [address] Referral ID Status Reason Start Date Expiration Date Visits Re quested Visits Authorized [id number] Open 04/03/2023 1 1 ROL EQUIPMENT ELECTRICIAN * (Routine) - Open Specialty Diagnoses / Procedures Referred By Contac t Referred To Contact Trevon Buenrostro PA-C [address] [address] Surgery), [facility] [place] [facility] [address] [facility] [place] [address] Referral ID Status Reason Start Date Expiration Date Visits Re quested Visits Authorized [id number] Open 04/03/2023 1 1 Question Answer Instructions to follow-up provider f/u appt, patient had difficult pain mgmt in hospital Comments Return to clinic in 3 weeks for post op visit ROL EQUIPMENT ELECTRICIAN * (Routine) - Open Specialty Diagnoses / Procedures Referred By Contac t Referred To Contact Procedures Temperature >101 (38.3 degrees Celsius) Trevon Buenrostro PA-C [address] [place] [address] Referral ID Status Reason Start Date Expiration Date Visits Re quested Visits Authorized [id number] Open 04/03/2023 1 1 ROL EQUIPMENT ELECTRICIAN * (Routine) - Open Specialty Diagnoses / Procedures Referred By Contac t Referred To Contact Procedures Severe uncontrolled pain Trevon Buenrostro PA-C [address] [address] Referral ID Status Reason Start Date Expiration Date Visits Re quested Visits Authorized [id number] Open 04/03/2023 1 1 ROL EQUIPMENT ELECTRICIAN * (Routine) - Open Specialty Diagnoses / Procedures Referred By Contac t Referred To Contact Procedures Numbness/pain in extremity Trevon Buenrostro PA-C [address] [address] Referral ID Status Reason Start Date Expiration Date Visits Re quested Visits Authorized [id number] Open 04/03/2023 1 1 ROL EQUIPMENT ELECTRICIAN * (Routine) - Open Specialty Diagnoses / Procedures Referred By Contac t Referred To Contact Procedures Difficulty breating, headache, or visual disturbance Trevon Buenrostro PA-C [address] [place] [address] Referral ID Status Reason Start Date Expiration Date Visits Re quested Visits Authorized [id number] Open 04/03/2023 1 1 ROL EQUIPMENT ELECTRICIAN * (Routine) - Open Specialty Diagnoses / Procedures Referred By Contac t Referred To Contact Procedures Any questions or concerns Trevon Buenrostro PA-C [address] [place] [address] Referral ID Status Reason Start Date Expiration Date Visits Re quested Visits Authorized [id number] Open 04/03/2023 1 1 ROL EQUIPMENT ELECTRICIAN * (Routine) - Open Specialty Diagnoses / Procedures Referred By Contac t Referred To Contact Julius Ann MD [address] [place] [address] [place] [address] [place] [address] Referral ID Status Reason Start Date Expiration Date Visits Re quested Visits Authorized [id number] Open 04/02/2023 1 1 Question Answer Specify time frame for follow up? 1 Week Instructions to follow-up provider Hospital discharge follow up ROL EQUIPMENT ELECTRICIAN Reason for Visit * Inpatient Admission (Routine) [...] Expiration Date Visits Re quested Visits Authorized [id number] 1 1 Encounter Details Date Type Department Care Team (Latest Contact Info) Description 04/01/2023 5:52 AM CONTROL EQUIPMENT ELECTRICIAN - 04/03/2023 3:20 PM CONTROL EQUIPMENT ELECTRICIAN Hospital Encounter [id number] [facility] [place], [place] [address] Isai Foss MD [address] [facility] [address] [place] [address] Lumbar radiculopathy Discharge Disposition: Returning Home/Self Care Social History Tobacco Use Types Packs/Day Years Used Date Smoking Tobacco: Never Smokeless Tobacco: Never Tobacco Cessation:Counseling Given: Not Answered Alcohol Use Standard Drinks/Week Comments Never 0 (1 standard drink = 0.6 oz pur e alcohol) [facility] Utilities Answer Date Recorded In the past 12 months has th e [employer], oil, or water [employer] threatened to shut off services in your [...] place to sleep or slept in a alf (including now)? No 04/01/2023 Sex and Gender Information Value Date Recorded Sex Assigned at Female 03/11/2023 11:10 AM CONTROL EQUIPMENT ELECTRICIAN Gender Identity Female 03/11/2023 11:10 AM CONTROL EQUIPMENT ELECTRICIAN Sexual Orientation Straight 03/11/2023 11 :10 AM CONTROL EQUIPMENT ELECTRICIAN documented as of this encounter Last Filed Vital Signs Vital Sign Reading Time Taken Comments Blood Pressure 99/59 04/03/2023 2:30 PM CONTROL EQUIPMENT ELECTRICIAN Pulse 81 04/03/2023 2:30 PM CONTROL EQUIPMENT ELECTRICIAN Temperature 36.8 ??C (98.3 ??F) 04/03/2023 2:30 PM CS T Respiratory Rate 18 04/03/2023 2:30 PM CONTROL EQUIPMENT ELECTRICIAN Oxygen Saturation 96% 04/03/2023 2:30 PM CONTROL EQUIPMENT ELECTRICIAN Inhaled Oxygen Concentration - - Weight 67.6 kg (149 lb 0.5 oz) 04/01/2023 4:45 P M CONTROL EQUIPMENT ELECTRICIAN Height 162.6 cm (5' 4) 04/01/2023 4:45 PM CONTROL EQUIPMENT ELECTRICIAN Body Mass Index 25.58 04/01/2023 4:45 PM CONTROL EQUIPMENT ELECTRICIAN documented in this encounter Medications at Time [...] BONE GROWTH STIMULATOR)Indications: S/P lumbar fusion Company: [employer] - for home use. 1 each 0 [...] 04/03/2023 3:17 PM CST Michelle Franz 1945 [id number] P: Discharge A: Discharged via wheelchair to home at 1513 escorted by nursing resident I: Discharge information and arrangements included: review of written discharge instructions, review of purpose and side effects of new medication R:Patient expressed understanding of information. ROL EQUIPMENT ELECTRICIAN * Julius Ann MD - 04/03/2023 11:42 [...] iron pills. Patient would like to buy [id number] iron pills. Hypertension; -Continue HEALTH SERVICES ADMINISTRATOR amlodipine and atenolol Chronic pain; Continue Cymbalta [...] tablet 20 mg, 20 mg, oral, DAILY, Bointa Estrada MD, 20 mg at 04/03/238[address] glucagon, [...] Prior to Admission Julius Ann MD [facility] Medicine ROL EQUIPMENT ELECTRICIAN * Larry Carrasco PT - 04/03/2023 9:37 AM CST Physical Therapy PT orders received and acknowledged. Greeted pt at bedside this morning, pt emotional and reportinghigh pain levels along with distress regarding upcoming discharge. Pt declining PT at this time, reporting she has a walker at home, 3 TIM, and available assist from her daughter who lives very closeby. Central Office Mechanic attempted to encourage pt to participate in evaluation in order to full assess pt's ability to return home safely, pt declined. PT will continue to follow, plan to re-attempt PT evaluationat another time. Larry Carrasco, PT, DPT ROL EQUIPMENT ELECTRICIAN * Trevon Buenrostro PA-C - 04/03/2023 8:38 [...] Clonus bilateral Trevon Buenrostro PA-C 8:39 AM [facility] [place] Office: [phone] ROL EQUIPMENT ELECTRICIAN * Daisha Kam RN - 04/03/2023 5:51 [...] I- Invasive Devices: PIVx2, D- Discharge: TBD ROL EQUIPMENT ELECTRICIAN * Tamy Sosa RN - 04/02/2023 10:30 PM CST 3791-5506 BP soft this shift, 500cc NS Bolus given with improvement. Pt c/o back pain, scheduled tylenol and PRN Oxycodone given. Pt does not want Vistaril. Zanaflex available at 2300. Pt frequently asking forIV dilaudid. Declining scheduled bowel meds. Up to [facility] with LSO and walker Ax1, was able to walk around room SBA without any limitations, gait slow but steady. Needs to wok with PT. Tamy Sosa RN ROL EQUIPMENT ELECTRICIAN * Ros Landis MD - 04/02/2023 8:08 PM CST BRIEF CROSS COVER NOTE Paged by bedside nursing regarding hypotension, 91/52, MAP 65. Plan: NS 500mL bolus ordered Ros Landis MD ROL EQUIPMENT ELECTRICIAN * Seymour Marvin, RN - 04/02/2023 4:01 [...] Home possibly on 04/03. Dtr will transport. ROL EQUIPMENT ELECTRICIAN * Juanita Levin, PT - 04/02/2023 11:49 [...] third time today. Will attempt again tomorrow. ROL EQUIPMENT ELECTRICIAN * Julius Ann MD - 04/02/2023 10:49 [...] -Repeat hemoglobin ordered this afternoon. Hypertension; -Continue HEALTH SERVICES ADMINISTRATOR amlodipine and atenolol Chronic pain; Continue Cymbalta [...] Prior to Admission Julius Ann MD [facility] Medicine ROL EQUIPMENT ELECTRICIAN * Trevon Buenrostro PA-C - 04/02/2023 9:02 [...] Otherwise WNL. Trevon Buenrostro PA-C 12:32 PM [facility] [place] Office: [phone] ROL EQUIPMENT ELECTRICIAN * Kunal Morrow RN - 04/02/2023 2:48 [...] Invasive Devices: PIVx2, garrett D- Discharge: TBD ROL EQUIPMENT ELECTRICIAN * Bonita Estrada MD - 04/01/2023 7:37 [...] DVT prophylaxis: Surgery Disposition: Per surgery Access. [facility] Service ROL EQUIPMENT ELECTRICIAN * Janice Arriaza RN - 04/01/2023 6:45 [...] to call for help, name of assigned child care aide, initialphysician orders, hourly rounding procedures, belongings checklist, unit and plan of care. R. Patient expressed understanding of information.. Janice Arriaza RN ROL EQUIPMENT ELECTRICIAN * Isaac Buenrostro - 04/01/2023 4:43 PM CST [facility] [phone] Patient seen in room today for fitting of an [place] LSO. Brace was fit, the use and care was covered, Overall fit of the brace after I finished looks good. Patient to follow wearing parameters set by ordering provider. Please reach out with any further questions or concerns. Isaac Ying/KERA C/LOF ROL EQUIPMENT ELECTRICIAN * Jolene Guzmán - 04/01/2023 11:11 AM CST S: Infection/Isolation Review B: Patient with history of MDRO requires isolation to prevent transmission in the healthcare setting A: Patient meets facility clearing protocol for MRSA R: Discontinue Contact Precautions. Manage cares using Standard Precautions. 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 Plant Used?: NA Hearing: Within Functional Limits Lines and Tubes: Garrett Catheter PRECAUTIONS Precautions Devices/Equipment Required: Lumbar Spine Orthosis Precautions: Spinal SAFETY INTERVENTIONS Safety Interventions Fall Risk?: Yes Safety Interventions/Patient Disposition: Standard interventions, [place] sitter on, Seated positioning system in place, [...] slip on shoes in figure four stance [facility] set up assist.) FUNCTIONAL MOBILITY Bed [...] Frame Short term goals target date: 04/02/23 senior care goals target date: 04/02/23 Patient/Family Participation in [...] ADLs and functional transfers. Outcome: Goal Met Load Dispatcher Goals Patient will complete ADLs including: feeding, hygiene/grooming, dressing, toileting, with set-up/supervision Outcome: Goal Met ROL EQUIPMENT ELECTRICIAN documented in this encounter Nursing Notes * Seymour Marvin RN - 04/03/2023 9:12 AM CST Problem: Pain - Acute Goal: Exhibits reduction in pain to an acceptable level of comfort Outcome: Ongoing Problem: Mobility - Impaired Goal: Demonstrates ability to perform physical activity independently or with assistive devices as needed Outcome: Ongoing ROL EQUIPMENT ELECTRICIAN * Daisha Kam RN - 04/03/2023 1:17 AM CST Problem: Pain - Acute Goal: Exhibits reduction in pain to an acceptable level of comfort Outcome: Met this shift Problem: Respiratory Status - Altered, Actual or Risk of Goal: Exhibits no signs or symptoms of respiratory distress Outcome: Met this shift Problem: Falls/Injury-Risk of Goal: Absence of Falls/Injury Outcome: Met this shift ROL EQUIPMENT ELECTRICIAN * Seymour Marvin RN - 04/02/2023 3:49 [...] 0851 by Seymour Marvin RN Outcome: Ongoing ROL EQUIPMENT ELECTRICIAN * Seymour Marvin RN - 04/02/2023 8:51 AM CST Problem: Pain - Acute Goal: Exhibits reduction in pain to an acceptable level of comfort Outcome: Ongoing Problem: Mobility - Impaired Goal: Demonstrates ability to perform physical activity independently or with assistive devices as needed Outcome: Ongoing ROL EQUIPMENT ELECTRICIAN * Kunal Morrow RN - 04/02/2023 2:48 [...] used to reduce pain sensation Outcome: Ongoing ROL EQUIPMENT ELECTRICIAN * Janice Arriaza RN - 04/01/2023 6:52 PM CST Problem: Falls/Injury-Risk of Goal: Absence of Falls/Injury Outcome: Met this shift Flowsheets (Taken 04/01/2023 1746) Environmental Safety Interventions: Standard Interventions in Place Fall Risk Light on Outside Patient Room Fall Risk division chair Door (NMR) High Risk Armband On (Green Bracelet) Problem: Pain - Acute Goal: Exhibits reduction in pain to an acceptable level of comfort Outcome: Met this shift Problem: Respiratory Status - Altered, Actual or Risk of Goal: Exhibits no signs or symptoms of respiratory distress Outcome: Met this shift ROL EQUIPMENT ELECTRICIAN * Florian Franz RN - 04/01/2023 4:27 PM CST Pt a/o x 3. VSS sats WNL on RA. Drsg C/D/I. Neros 5/5 denies numbness. In LE. Pain 2-3/10 denies nausea. Report called to RN A7 ROL EQUIPMENT ELECTRICIAN * Amie Mclaughlin RN - 04/01/2023 11:10 AM CST INfectious disease updated on ot h/o MRSA 12 years ago for follow up ROL EQUIPMENT ELECTRICIAN documented in this encounter OR Notes * OR Surgeon - Isai Foss MD - 04/01/2023 8:51 AM CST OPERATIVE REPORT Michelle Franz 1945 SURGEON: Isai Foss MD AMMONIUM SULFATE OPERATOR (posterior) STANISLAV Estrada PREOPERATIVE DIAGNOSES: POSTOPERATIVE DIAGNOSIS: Same PROCEDURES: 1. L1-L5 posterolateral spinal fusion 2. L1-L5 posterior instrumentation 3. Allograft, local autograft placed posterolaterally 4. C-arm for intraoperative level localization and hardware evaluation. ANESTHESIA: General, local. COMPLICATIONS: None. SPECIMENS: None. IMPLANTS: Implant Name Type Inv. Item Serial No. Dater Assembler Lot No. [id number] No. Used Action NMP FIBERS LARGE - [id number] Bone NMP FIBERS LARGE [id number] [employer] N/A 1 Implanted NMP FIBERS LARGE - [id number] Bone NMP FIBERS LARGE [id number] [employer] N/A 1 Implanted NMP FIBERS LARGE - [id number] Bone NMP FIBERS LARGE [id number] [employer] N/A 1 Implanted INFUSE MED - [id number] Prosthetic Implant Non-Specific INFUSE MED Medtronic Sofamor Danek [id number] N/A 1 Implanted CANCELLOUS CHIPS 30CC - [id number] Bone CANCELLOUS CHIPS 30CC [id number] Medtronic Inc N/A 1 Implanted CANCELLOUS CHIPS 60CC - [id number] Bone CANCELLOUS CHIPS 60CC [id number] [employer]onic Inc N/A 1 Implanted CANCELLOUS CHIPS 30CC - [id number] Bone CANCELLOUS CHIPS 30CC [id number] Med[employer]onic Inc N/A 1 Implanted CREO 5.5 [...] radiographs. No deep bleeding. INDICATIONS FOR SURGERY: Michelel Franz is a 77 y.o. yo with [...] the PACU for further cares. Postoperative plan: [place] Standing AP and lateral scoliosis x-rays prior to discharge Avoid significant bending, lifting, twisting for 3 months minimum Stanislav Estrada provided assistance with preoperative positioning, prepping, and draping of the patient. The medicine assistant provided vital operative assistance with retraction [...] of care being made to the anesthesiologist. ROL EQUIPMENT ELECTRICIAN * Brief Op Note - Nj Thorne [...] The procedure was medically necessary for an medicine assistant because Dr. Foss needed the operative exposure and assistance that I provided. This allowed him to safely and efficiently operate. It was also important that I help ligate blood vessels to maintain hemostasis and reduce the bleeding risk. The assistance that I provided reduced operative time which meant less general anesthetic for the patient. Nj Thorne PA-C ROL EQUIPMENT ELECTRICIAN documented in this encounter Plan of Treatment Scheduled Referrals Name Type Priority Associated Diagnoses Orde r Schedule Follow Up Follow Up Routine Ordered: 04/02 Follow Up Follow Up Routine Ordered: 04/03 documented as of this encounter Procedures Procedure Name Priority Date/Time Associated Diagnosis Comments HEMOGLOBIN Routine 04/03/2023 7:00 AM CONTROL EQUIPMENT ELECTRICIAN HEMOGLOBIN Timed Procedure 04/02/2023 3:26 PM CONTROL EQUIPMENT ELECTRICIAN XR SPINE LUMBAR ROUTINE STAT 04/02/2023 10:43 AM CONTROL EQUIPMENT ELECTRICIAN EXTRA TUBE-SST (LAB USE ONLY) Routine 04/02/2023 7:28 AM CONTROL EQUIPMENT ELECTRICIAN HEMOGLOBIN Routine 04/02/2023 7:28 AM CONTROL EQUIPMENT ELECTRICIAN XR C-ARM SPINE STAT 04/01/2023 10:36 AM CONTROL EQUIPMENT ELECTRICIAN SPIN BONE AUTOGRFT LOCAL 04/01/2023 7:29 AM CONTROL EQUIPMENT ELECTRICIAN Degeneration of lumbar intervertebral disc ALLOGRAFT FOR SPINE SURGERY ONLY MORSELIZED 04/01/2023 7:29 AM CONTROL EQUIPMENT ELECTRICIAN Degeneration of lumbar intervertebral disc INSERT VERT FIX DEV,POST,3-6 * 04/01/2023 7:29 AM CONTROL EQUIPMENT ELECTRICIAN Degeneration of lumbar intervertebral disc SPINE FUSN,POST TECH,EA ADDNL* 04/01/2023 7:29 AM CONTROL EQUIPMENT ELECTRICIAN Degeneration of lumbar intervertebral disc ARTHRODESIS POSTERIOR/POSTEROLAT ERAL LUMBAR 04/01/2023 7:29 AM CONTROL EQUIPMENT ELECTRICIAN Degeneration of lumbar intervertebral disc ABORH CONFIRM (LAB USE ONLY) STAT 04/01/2023 6:47 AM CONTROL EQUIPMENT ELECTRICIAN TYPE AND SCREEN STAT 04/01/2023 6:46 AM CONTROL EQUIPMENT ELECTRICIAN PROTIME/INR STAT 04/01/2023 6:46 AM CONTROL EQUIPMENT ELECTRICIAN PARTIAL THROMBOPLASTIN TIME STAT 04/01/2023 6:46 AM CONTROL EQUIPMENT ELECTRICIAN HEMOGLOBIN STAT 04/01/2023 6:46 AM CONTROL EQUIPMENT ELECTRICIAN HEMATOCRIT STAT 04/01/2023 6:46 AM CONTROL EQUIPMENT ELECTRICIAN POCT GLU METER STAT 04/01/2023 6:12 AM CONTROL EQUIPMENT ELECTRICIAN documented in this encounter Results * (ABNORMAL) Hemoglobin (04/03/2023 7:00 AM CONTROL EQUIPMENT ELECTRICIAN) Only the most recent of4 resultswithin the time period is included. Hemoglobin 8.5(L) 12.0 - 16.0 gm/dL 04/03/2023 7:25 AM CONTROL EQUIPMENT ELECTRICIAN [facility] Blood 04/03/2023 7:00 AM CONTROL EQUIPMENT ELECTRICIAN 04/03/2023 7:17 AM CONTROL EQUIPMENT ELECTRICIAN Nj Thorne PA-C HEMATOLOGY ORDERA BLE Performing Organization Address City/[facility] Co de Phone Number [facility] [address] [place], [place] [id number] * XR SPINE LUMBAR ROUTINE (04/02/2023 10:43 AM CONTROL EQUIPMENT ELECTRICIAN) Anatomical Region Laterality Modality Spine Computed Radiogr aphy 04/02/2023 11:2 7 AM CONTROL EQUIPMENT ELECTRICIAN Impressions 04/02/2023 11:29 AM CONTROL EQUIPMENT ELECTRICIAN IMPRESSION: 1. Operative changes of posterior danny and pedicle screw fixation L1-L5 with posterolateral bone graft material, grossly negative for postoperative purposes. Lumbar vertebral body alignment described in more detail above. 2. Old superior and inferior pubic rami fractures. REPORT SIGNED BY Janice Talavera M.D. Narrative 04/02/2023 11:29 AM CONTROL EQUIPMENT ELECTRICIAN EXAM: ??XR SPINE LUMBAR ROUTINE DATE: 04/02/2023 [...] Tube-SST (Lab Use Only) (04/02/2023 7:28 AM CONTROL EQUIPMENT ELECTRICIAN) Blood 04/02/2023 7:28 AM CONTROL EQUIPMENT ELECTRICIAN 04/02/2023 7:53 AM CONTROL EQUIPMENT ELECTRICIAN Bonita Estrada MD CHEMISTRY ORDERABLE [facility] [address] [id number] * XR C-ARM SPINE (04/01/2023 10:36 AM CONTROL EQUIPMENT ELECTRICIAN) Anatomical Region Laterality Modality Computed Radiogr aphy 04/01/2023 12:3 5 PM CONTROL EQUIPMENT ELECTRICIAN Impressions 04/01/2023 12:37 PM CONTROL EQUIPMENT ELECTRICIAN IMPRESSION: 1. ??Procedural assistance. REPORT SIGNED BY DR. MARCUS JUNE Narrative 04/01/2023 12:37 PM CONTROL EQUIPMENT ELECTRICIAN EXAM: ??XR C-ARM SPINE DATE: ?? 04/01/2023 [...] Confirm (Lab Use Only) (04/01/2023 6:47 AM CONTROL EQUIPMENT ELECTRICIAN) Group and Rh O Positive 04/01/2023 9:09 AM CONTROL EQUIPMENT ELECTRICIAN [facility] Blood 04/01/2023 6:47 AM CONTROL EQUIPMENT ELECTRICIAN 04/01/2023 7:26 AM CONTROL EQUIPMENT ELECTRICIAN Nj Thorne PA-C BLOOD BANK ORDERA BLE MEDIWARE [facility] [address] [place] [address] [address] [address] [facility] [address] [place] [address] * Hematocrit (04/01/2023 6:46 AM CONTROL EQUIPMENT ELECTRICIAN) Hematocrit 37.3 36.0 - 48.0 % 04/01/2023 7:07 AM CONTROL EQUIPMENT ELECTRICIAN [facility] Blood 04/01/2023 6:46 AM CONTROL EQUIPMENT ELECTRICIAN 04/01/2023 6:50 AM CONTROL EQUIPMENT ELECTRICIAN Nj Thorne PA-C HEMATOLOGY ORDERA BLE Performing Organization Address [facility] Co de Phone Number [address] [address] * Type and Screen (04/01/2023 6:46 AM CONTROL EQUIPMENT ELECTRICIAN) Pathologist [facility] [facility] O Positive 04/01/2023 7:39 AM CONTROL EQUIPMENT ELECTRICIAN [facility] Antibody Screen Negative 04/01/2023 7:39 AM [facility] Blood 04/01/2023 6:46 AM CONTROL EQUIPMENT ELECTRICIAN 04/01/2023 6:50 AM CONTROL EQUIPMENT ELECTRICIAN Nj Thorne PA-C BLOOD BANK ORDERA BLE Performing Organization Address [facility] de Phone Number [facility] [id number] [place] [id number] * Partial Thromboplastin Time (04/01/2023 6:46 AM CONTROL EQUIPMENT ELECTRICIAN) Pathologist [facility] PTT 28.8 24.0 - 31.0 SEC. 04/01/2023 7:06 AM [facility] Blood 04/01/2023 6:46 AM CONTROL EQUIPMENT ELECTRICIAN 04/01/2023 6:50 AM CONTROL EQUIPMENT ELECTRICIAN Narrative [facility] - 04/01/2023 7:06 AM CONTROL EQUIPMENT ELECTRICIAN aPTT Therapeutic Reference Ranges: Argatroban protocol: 60 - 85 seconds Bivalirudin protocol: 43 - 71 seconds Nj Thorne PA-C COAGULATION ORDER ABLE Performing Organization Address [facility] Co de Phone Number [facility] [address] [id number] * Protime/INR (04/01/2023 6:46 AM CONTROL EQUIPMENT ELECTRICIAN) INR 1.0 0.9 - 1.2 04/01/2023 7:06 AM [facility] Blood 04/01/2023 6:46 AM CONTROL EQUIPMENT ELECTRICIAN 04/01/2023 6:50 AM CONTROL EQUIPMENT ELECTRICIAN Nj Thorne PA-C COAGULATION ORDER ABLE Performing Organization Address [facility]/ZIP Co de Phone Number [facility] [place] [address] * (ABNORMAL) POCT Glucose Meter (04/01/2023 6:12 AM CONTROL EQUIPMENT ELECTRICIAN) GLUCOSE WB METER 105(H) 60 - 100 mg/dL 04/01/2023 6:38 AM [facility] Blood 04/01/2023 6:12 AM CONTROL EQUIPMENT ELECTRICIAN 04/01/2023 6:38 AM CONTROL EQUIPMENT ELECTRICIAN Isai Foss MD LAB POINT OF CARE TE ST RESULTS Performing Organization Address [facility]/ZIP Co de Phone Number [facility] [place] [address] documented in this encounter Visit Diagnoses Diagnosis [...] Until Discontinued, Post-Op Given 04/03/2023 1:15 PM CONTROL EQUIPMENT ELECTRICIAN 1,000 mg Given 04/03/2023 8:12 AM CONTROL EQUIPMENT ELECTRICIAN 1,000 mg Given 04/02/2023 10:15 PM CONTROL EQUIPMENT ELECTRICIAN 1,000 mg amLODIPine (NORVASC) tablet 10 mg 10 mg, oral, DAILY, First dose on Fri04/02/23 at 0800, Until Discontinued Given 04/03/2023 8:11 AM CONTROL EQUIPMENT ELECTRICIAN 10 mg Given 04/02/2023 8:08 AM CONTROL EQUIPMENT ELECTRICIAN 10 mg atenolol (TENORMIN) tablet 25 mg 25 mg, oral, DAILY, First dose on Fri04/02/23 at 0800, Until Discontinued Given 04/03/2023 8:11 AM CONTROL EQUIPMENT ELECTRICIAN 25 mg Given 04/02/2023 8:08 AM CONTROL EQUIPMENT ELECTRICIAN 25 mg ceFAZolin (Ancef) 1 g in sodium chloride 0.9 % 100 mL IV piggyback 1 g, Intravenous, EVERY 8 HOURS (NS), 2 doses, First dose on Fri04/01/23 at 1115, Last dose on Fri04/01/23 at 1915, Post-Op, Administer over 30 Minutes New Bag 04/01/2023 7:38 PM CONTROL EQUIPMENT ELECTRICIAN 1 g 200 mL/hr D50W IV syringe [...] 2030, Until Discontinued Given 04/02/2023 7:57 PM CONTROL EQUIPMENT ELECTRICIAN 20 mg Given 04/01/2023 8:12 PM CONTROL EQUIPMENT ELECTRICIAN 20 mg DULoxetine (CYMBALTA) delayed release capsule 60 mg 60 mg, oral, DAILY, First dose on Fri04/01/23 at 2030, Until Discontinued Given 04/02/2023 7:57 PM CONTROL EQUIPMENT ELECTRICIAN 60 mg Given 04/01/2023 8:11 PM CONTROL EQUIPMENT ELECTRICIAN 60 mg famotidine (PEPCID) tablet 20 mg 20 mg, oral, DAILY, First dose on Fri04/01/23 at 2030, Until Discontinued Given 04/03/2023 8:11 AM CONTROL EQUIPMENT ELECTRICIAN 20 mg Given 04/02/2023 8:08 AM CONTROL EQUIPMENT ELECTRICIAN 20 mg Given 04/01/2023 8:11 PM CONTROL EQUIPMENT ELECTRICIAN 20 mg gabapentin (NEURONTIN) capsule 600 mg 600 mg, oral, ONCE, 1 dose, On Fri04/01/23 at 0600, Pre-Op Given 04/01/2023 6:43 AM CONTROL EQUIPMENT ELECTRICIAN 600 mg glucagon, human recombinant (Glucagen) injection [...] POST-ACUTE PAIN MANAGEMENT Given 04/01/2023 1:12 PM CONTROL EQUIPMENT ELECTRICIAN 0.2 mg Given 04/01/2023 11:45 AM CONTROL EQUIPMENT ELECTRICIAN 0.2 mg HYDROmorphone (DILAUDID) syringe 0.2-0.4 mg 0.2-0.4 mg, Intravenous, EVERY 4 HOURS NEEDED, Starting on Fri04/01/23 at 1109, Until Fri04/02/23 at 0158, Post-Op, Pain, when NOT taking PO Given 04/02/2023 12:29 AM CONTROL EQUIPMENT ELECTRICIAN 0.4 mg Given 04/01/2023 2:31 PM CONTROL EQUIPMENT ELECTRICIAN 0.3 mg HYDROmorphone (DILAUDID) syringe 0.2-0.4 mg 0.2-0.4 mg, Intravenous, EVERY 4 HOURS NEEDED, Starting on Fri04/02/23 at 0158, Until Fri04/02/23 at 1142, Post-Op, Pain, when NOT taking PO, Pain, if oral opioid not effective or tolerated Given 04/02/2023 3:39 AM CONTROL EQUIPMENT ELECTRICIAN 0.4 mg HYDROmorphone (DILAUDID) syringe 0.5 mg 0.5 mg, Intravenous, EVERY 4 HOURS NEEDED, Starting on Fri04/02/23 at 1141, Until Khloe 04/03/23 at 2133, Post-Op, Pain, when NOT taking PO, Pain, if oral opioid not effective or tolerated Given 04/02/2023 11:04 PM CONTROL EQUIPMENT ELECTRICIAN 0.5 mg Given 04/02/2023 5:37 PM CONTROL EQUIPMENT ELECTRICIAN 0.5 mg Given 04/02/2023 1:21 PM CONTROL EQUIPMENT ELECTRICIAN 0.5 mg hydrOXYzine HCl (VISTARIL) injection 25 mg 25 mg, IntraMUSCULAR, ONCE NEEDED, MAY REPEAT X 1, 2 doses, Starting on Fri04/01/23 at 1107, Until Fri04/01/23 at 1642, Phase 1/2, for nausea unrelieved by second line antiemetic if not given in the past 6 hours while in recovery area. Given 04/01/2023 11:45 AM CONTROL EQUIPMENT ELECTRICIAN 25 mg Left Lateral Thigh hydrOXYzine HCl [...] past 6 hours. Given 04/01/2023 3:43 PM CONTROL EQUIPMENT ELECTRICIAN 25 mg hydrOXYzine pamoate (Vistaril) capsule 50 mg 50 mg, oral, EVERY 3 HOURS NEEDED, Starting on Fri04/01/23 at 1109, Until Khloe 04/03/23 at 2133, Post-Op, to enhance pain control of analgesics Given 04/03/2023 2:37 AM CONTROL EQUIPMENT ELECTRICIAN 50 mg Given 04/01/2023 9:28 PM CONTROL EQUIPMENT ELECTRICIAN 50 mg lactated Ringers (LR) IV infusion at 50 mL/hr, Intravenous, CONTINUOUS, Starting on Fri04/01/23 at 0600, Until Fri04/01/23 at 1119, Pre-Op New Bag 04/01/2023 6:45 AM CONTROL EQUIPMENT ELECTRICIAN 50 mL/hr lactated Ringers (LR) IV infusion at 100 mL/hr, Intravenous, CONTINUOUS, Starting on Fri04/01/23 at 1115, Until Fri04/01/23 at 1642, Phase 1 Restarted 04/01/2023 11:15 AM CONTROL EQUIPMENT ELECTRICIAN 100 mL/hr naloxone (NARCAN) injection 0.1 mg 0.1 mg, Intravenous, EVERY 1 MINUTE PRN, Starting on Fri04/01/23 at 1109, Until Khloe 04/03/23 at 2133, Post-Op, Opiate Reversal ondansetron (ZOFRAN) disintegrating tablet 4 mg 4 mg, oral, EVERY 8 HOURS NEEDED, Starting on Fri04/01/23 at 1109, Until Khloe 04/03/23 at 2133, Post-Op, nausea & vomiting Given 04/03/2023 2:40 AM CONTROL EQUIPMENT ELECTRICIAN 4 mg ondansetron (ZOFRAN) injection 4 mg [...] in recovery area Given 04/01/2023 3:44 PM CONTROL EQUIPMENT ELECTRICIAN 5 mg oxyCODONE (immediate release) (ROXICODONE) tablet 5-10 mg 5-10 mg, oral, EVERY 4 HOURS NEEDED, Starting on Fri04/01/23 at 1109, Until Khloe 04/03/23 at 2133, Post-Op, Pain, when taking PO Given 04/03/2023 2:30 PM CONTROL EQUIPMENT ELECTRICIAN 5 mg Given 04/03/2023 10:23 AM CONTROL EQUIPMENT ELECTRICIAN 10 mg Given 04/03/2023 6:44 AM CONTROL EQUIPMENT ELECTRICIAN 10 mg oxyCODONE (oxyCONTIN) extended release tablet 12 HR 10 mg 10 mg, oral, ONCE, 1 dose, On Fri04/01/23 at 0600, Pre-Op Given 04/01/2023 6:43 AM CONTROL EQUIPMENT ELECTRICIAN 10 mg potassium chloride 20 mEq in D5W-NS IV infusion 1000 mL at 50 mL/hr, Intravenous, CONTINUOUS, Starting on Fri04/01/23 at 1115, Until Fri04/03/23 at 2133, Post-Op New Bag 04/01/2023 8:22 PM CONTROL EQUIPMENT ELECTRICIAN 50 mL/ hr prochlorperazine (COMPAZINE) injection 10 [...] 61 Minutes New Bag 04/02/2023 8:37 PM CONTROL EQUIPMENT ELECTRICIAN 500 mL 491. 8 mL/hr tiZANidine (ZANAFLEX) tablet 2-4 mg 2-4 mg, oral, EVERY 6 HOURS NEEDED, Starting on Fri04/01/23 at 1109, Until Fri04/03/23 at 2133, Spasticity Given 04/03/2023 10:23 AM CONTROL EQUIPMENT ELECTRICIAN 4 mg Given 04/02/2023 4:45 PM CONTROL EQUIPMENT ELECTRICIAN 4 mg Given 04/02/2023 8:07 AM CONTROL EQUIPMENT ELECTRICIAN 4 mg vancomycin ( VANCOCIN ) 1000 mg in NS 250 mL IV piggyback 1,000 mg, Intravenous, ONE HOUR PRE-PROCEDURE ONE TIME DOSE, 1 dose, Starting on Fri04/01/23 at 0553, Until Fri04/01/23 at 0743, Pre-Op New Bag 04/01/2023 6:43 AM CONTROL EQUIPMENT ELECTRICIAN 1,000 mg 250 mL/hr documented in this encounter Active and Recently Administered Medications Times are shown in CONTROL EQUIPMENT ELECTRICIAN. Scheduled Medication Order 04/01/2023 04/02/2023 04/03/2023 acetaminophen [...] injection 10 mg (COMPLETED) 10 mg, Intravenous, [employer] CONSULTANT TO OR, 1 dose, Starting on Fri04/01/23 at 0553, Until Discontinued, Intra-Op 0835 (Given - Provider: Monika Ireland APRN, ASSOCIATE GENETICS PROFESSOR) docusate sodium (COLACE) capsule 200 mg 200 [...] (New Bag - Provider: Monika Ireland APRN, ASSOCIATE GENETICS PROFESSOR)0932 (Rate Change - Provider: Monika Ireland APRN, ASSOCIATE GENETICS PROFESSOR)1014 (Rate Change - Provider: Monika Ireland APRN, ASSOCIATE GENETICS PROFESSOR)1106 (Rate Change - Provider: Monika Ireland APRN, ASSOCIATE GENETICS PROFESSOR)1108 (Stopped - Provider: Monika Ireland APRN, ASSOCIATE GENETICS PROFESSOR) potassium chloride 20 mEq in D5W-NS IV [...] Infection Prevention 1/16/04/01/2023 04/01/2023 04/01/2023 11:11 AM CONTROL EQUIPMENT ELECTRICIAN documented as of this encounter Care Teams Business Employment Specialist Relationship Specialty [place] [address] [address] [id number] PCP - General Internal Medicine 03/12/23 04/01/23 [place] [id number] [address] [id number] PCP - General Internal Medicine 04/02/23 [facility], [facility] [address] [id number] PCP - Primary [facility] Clinic 04/02/23 documented as of this encounter
--- OUTSIDE RECORDS SUMMARY | 2023-04-07 09:27 | XMS_ITS | Referral Summary ---
Author Name Unknown Organization [facility] Address [address] [place] [address] [place] [address] Care Team Providers Care Magistrate Judge Name Role Phone Carolynn Alvarado MD Primary Care Provider [phone] [facility] Encounters Date Type Department Care Team Description 04/05/2023 5:15 PM UPPER INSPECTOR - Present Hospital Encounter A7 [address] [place] [address] [place] [address] Sergio Lara, Chuck Borges MD Acute pain of left lower extremity 04/01/2023 5:52 AM UPPER INSPECTOR - 04/03/2023 3:20 PM UPPER INSPECTOR Hospital Encounter A7 [address] [place] [address] [place] [address] Isai Foss MD Lumbar radiculopathy Discharge Disposition: Returning Home/Self Care 04/01/2023 Travel 04/01/2023 7:25 AM UPPER INSPECTOR - 04/01/2023 11:50 AM UPPER INSPECTOR Surgery [facility] Operating Room [address] [place] [address] [place] [address] Isai Foss MD L1-5 POSTERIOR FUSION WITH INSTRUMENTATION WITH NEURO MONITORING 03/28/2023 Prep For Procedure NMR PROVIDER [address] [place] [address] [place] [address] Nj Thorne PA-C 03/26/2023 Travel 03/12/2023 Travel from Last 3 Months Allergies Active Allergy Reactions Criticality Noted Date Comments Lisinopril 03/26/2023 COHEN Medications Medication Sig Dispensed Refills Start Date End Date Status medical supply, miscellaneous (ELECTRICAL BONE GROWTH STIMULATOR)Indicat ions:S/P lumbar fusion Company: [employer] - for home use. 1 each 0 [...] left lower extremity 04/05/2023 Lumbar radiculopathy 04/01/2023 Social History Tobacco Use Types Packs/Day Years Used Date Smoking Tobacco: Never Smokeless Tobacco: Never Tobacco Cessation:Counseling Given: Not Answered Alcohol Use Standard Drinks/Week Comments Never 0 (1 standard drink = 0.6 oz pur e alcohol) [facility] Utilities Answer Date Recorded In the past 12 months has [facility] [employer], oil, or water [employer] threatened to shut off services in your [...] place to sleep or slept in a intermediate (including now)? No 04/05/2023 Sex and Gender Information Value Date Recorded Sex Assigned at Female 03/11/2023 11:10 AM UPPER INSPECTOR Gender Identity Female 03/11/2023 11:10 AM UPPER INSPECTOR Sexual Orientation Straight 03/11/2023 11 :10 AM UPPER INSPECTOR Last Filed Vital Signs Vital Sign Reading Time Taken Comments Blood Pressure 134/82 04/07/2023 8:44 AM UPPER INSPECTOR Pulse 77 04/07/2023 8:44 AM UPPER INSPECTOR Temperature 36.3 ??C (97.4 ??F) 04/07/2023 5:53 AM CS T Respiratory Rate 20 04/07/2023 8:44 AM UPPER INSPECTOR Oxygen Saturation 98% 04/07/2023 8:44 AM UPPER INSPECTOR Inhaled Oxygen Concentration - - Weight 61.2 kg (135 lb) 04/05/2023 5:45 PM UPPER INSPECTOR Height 162.6 cm (5' 4) 04/05/2023 5:45 PM UPPER INSPECTOR Body Mass Index 23.17 04/05/2023 5:45 PM UPPER INSPECTOR Plan of Treatment Not on file Medical Devices Implanted Type Area Medical Office Specialist Device Identifier Shelf Expiration Date Model / Serial / Lot Cancellous Chips 30cc - [id number] Implanted:Qty : 1 on 04/01/2023 by Isai Foss MD at [facility] Bone N/A: Spine Lumbar [employer] 01/23/2027 [id number] / [id number] / Infuse Med - [id number] Implanted:Qty : 1 on 04/01/2023 by Isai Foss MD at [facility] Prosthetic Implant Non-Specific N/A: Spine Lumbar Med[employer]onic Sofamor Danek 09/14/2024 [id number] / / [id number] 5.5mm Ti Alloy Curved Jarred, 125mm Implanted:Qty : 2 on 04/01/2023 by Isai Foss MD at [facility] Back [id number] / / Description:MFTR: [employer] Procedures The patient is currently admitted. The information in this section might not be complete until the patient is discharged. Procedure Name Priority Date/Time Associated Diagnosis Comments CK TOTAL Routine 04/07/2023 7:01 AM UPPER INSPECTOR CBC/DIFF Routine 04/07/2023 7:01 AM UPPER INSPECTOR COMPREHENSIVE METABOLIC PANEL Routine 04/07/2023 7:[address] SPINE LUMBAR W/O CON Routine 04/06/2023 12:10 PM UPPER INSPECTOR XR PELVIS & HIP LATERAL BILAT Routine 04/06/2023 10:07 AM UPPER INSPECTOR HBA1C / EAG Add On 04/05/2023 7:07 PM UPPER INSPECTOR CK TOTAL Add On 04/05/2023 7:07 PM UPPER INSPECTOR COMPREHENSIVE METABOLIC PANEL Routine 04/05/2023 7:07 PM UPPER INSPECTOR CBC (HGB,HCT,WBC,RBC,KURTIS TELET) Routine 04/05/2023 7:07 PM UPPER INSPECTOR HEMOGLOBIN Routine 04/03/2023 7:00 AM UPPER INSPECTOR HEMOGLOBIN Timed Procedure 04/02/2023 3:26 PM UPPER INSPECTOR XR SPINE LUMBAR ROUTINE STAT 04/02/2023 10:43 AM UPPER INSPECTOR EXTRA TUBE-SST (LAB USE ONLY) Routine 04/02/2023 7:28 AM UPPER INSPECTOR HEMOGLOBIN Routine 04/02/2023 7:28 AM UPPER INSPECTOR XR C-ARM SPINE STAT 04/01/2023 10:36 AM UPPER INSPECTOR INTUBATION Routine 04/01/2023 8:15 AM UPPER INSPECTOR SPIN BONE AUTOGRFT LOCAL 04/01/2023 7:29 AM UPPER INSPECTOR Degeneration of lumbar intervertebral disc ALLOGRAFT FOR SPINE SURGERY ONLY MORSELIZED 04/01/2023 7:29 AM UPPER INSPECTOR Degeneration of lumbar intervertebral disc INSERT VERT FIX DEV,POST,3-6 * 04/01/2023 7:29 AM UPPER INSPECTOR Degeneration of lumbar intervertebral disc SPINE FUSN,POST TECH,EA ADDNL* 04/01/2023 7:29 AM UPPER INSPECTOR Degeneration of lumbar intervertebral disc ARTHRODESIS POSTERIOR/POSTEROLAT ERAL LUMBAR 04/01/2023 7:29 AM UPPER INSPECTOR Degeneration of lumbar intervertebral disc ABORH CONFIRM (LAB USE ONLY) STAT 04/01/2023 6:47 AM UPPER INSPECTOR HEMATOCRIT STAT 04/01/2023 6:46 AM UPPER INSPECTOR HEMOGLOBIN STAT 04/01/2023 6:46 AM UPPER INSPECTOR TYPE AND SCREEN STAT 04/01/2023 6:46 AM UPPER INSPECTOR PARTIAL THROMBOPLASTIN TIME STAT 04/01/2023 6:46 AM UPPER INSPECTOR PROTIME/INR STAT 04/01/2023 6:46 AM UPPER INSPECTOR POCT GLU METER STAT 04/01/2023 6:12 AM UPPER INSPECTOR from Last 3 Months Results * CK Total (04/07/2023 7:01 AM UPPER INSPECTOR) Only the most recent of2 resultswithin the time period is included. CK TOTAL 174 34 - 192 U/L 04/07/2023 8:01 AM [facility] Blood 04/07/2023 7:01 AM UPPER INSPECTOR 04/07/2023 7:29 AM [facility] Chuck Carpenter MD CHEMISTRY ORDERABLE [facility] [address] [place] [address] * (ABNORMAL) Comprehensive Metabolic Panel (04/07/2023 7:01 AM [facility]) Only the most recent of2 resultswithin the time period is included. Pathologist [facility] Sodium 136 136 - 145 mmol/L 04/07/2023 8:01 AM [facility] Potassium 4.2 3.4 - 5.1 mmol/L 04/07/2023 8:01 AM [facility] Chloride 103 98 - 108 mmol/L 04/07/2023 8:01 AM [facility] Carbon Dioxide 27 20 - 31 mmol/L 04/07/2023 8:01 AM [facility] BUN (Urea Nitro) 20 9 - 23 mg/dL 04/07/2023 8:01 AM [facility] Creatinine 0.66 0.55 - 1.02 mg/dL 04/07/2023 8:01 AM [facility] Est GFR (CKD-EPI) >60.00 >60.00 mL/min/1. 73m2 04/07/2023 8:01 AM [facility] Comment:Calculation based on the Chronic Kidney Disease Epidemiology Collaboration (CKD-EPI) equation refit without adjustment for race. Glucose 147(H) 74 - 106 mg/dL 04/07/2023 8:01 AM [facility] Calcium, Serum 8.2(L) 8.7 - 10.4 mg/dL 04/07/2023 8:01 AM [facility] Anion Gap 6.0 0.0 - 15.0 mmol/L 04/07/2023 8:01 AM [facility] Albumin 2.8(L) 3.4 - 5.0 g/dL 04/07/2023 8:01 AM [facility] Bilirubin-Total 0.3 0.3 - 1.2 mg/dL 04/07/2023 8:01 AM [facility] Alkaline Phosphatase 107 46 - 116 U/L 04/07/2023 8:01 AM [facility] Protein Total 6.3 5.7 - 8.2 g/dL 04/07/2023 8:01 AM [facility] AST (SGOT) 22 13 - 40 U/L 04/07/2023 8:01 AM [facility] ALT 87(H) 7 - 40 U/L 04/07/2023 8:01 AM [facility] Blood 04/07/2023 7:01 AM UPPER INSPECTOR 04/07/2023 7:29 AM [facility] Chuck Carpenter MD CHEMISTRY ORDERABLE Performing Organization Address City/State/[facility] Co de Phone Number [facility] [address] [place], [place] [address] * (ABNORMAL) CBC / Diff (04/07/2023 7:01 AM [facility]) WBC 15.2(H) 4.3 - 10.8 K/uL 04/07/2023 7:34 AM [facility] RBC 2.90(L) 4.20 - 5.40 M/uL 04/07/2023 7:34 AM [facility] Hemoglobin 8.8(L) 12.0 - 16.0 gm/dL 04/07/2023 7:34 AM [facility] Hematocrit 26.9(L) 36.0 - 48.0 % 04/07/2023 7:34 AM [facility] MCV 93 80 - 100 fL 04/07/2023 7:34 AM [facility] MCH 30 27 - 33 pg 04/07/2023 7:34 AM [facility] MCHC 33 33 - 36 gm/dL 04/07/2023 7:34 AM [facility] RDW 13.0 11.5 - 14.5 % 04/07/2023 7:34 AM [facility] Platelet Count 468(H) 150 - 400 K/UL 04/07/2023 7:34 AM [facility] MPV 10.2 6.5 - 12 fL 04/07/2023 7:34 AM [facility] PMN % 80.8 % 04/07/2023 7:34 AM [facility] IG % 2.0(H) <=1.0 % 04/07/2023 7:34 AM [facility] Comment:Immature granulocyte s often indicate left shift when outside of normal limits. Lymphocyte % 11.8 % 04/07/2023 7:34 AM [facility] Monocyte % 5.0 % 04/07/2023 7:34 AM [facility] Eosinophil % 0.2 % 04/07/2023 7:34 AM [facility] Basophil % 0.2 % 04/07/2023 7:34 AM [facility] PMN Absolute 12.32(H) 1.80 - 7.80 K/uL 04/07/2023 7:34 AM [facility] Lymphocyte Absolute 1.80 1.00 - 4.00 K/uL 04/07/2023 7:34 AM [facility] Monocyte Absolute 0.76 0.00 - 1.00 K/uL 04/07/2023 7:34 AM [facility] Eosinophil Absolute 0.03 0.00 - 0.45 K/uL 04/07/2023 7:34 AM [facility] Basophil Absolute 0.03 0.00 - 0.20 K/uL 04/07/2023 7:34 AM [facility] Nucl RBC % 0.0 0.0 - 0.0 /100 WBC 04/07/2023 7:34 AM [facility] Nucl RBC Absolute 0.00 0.00 - 0.00 K/uL 04/07/2023 7:34 AM [facility] Blood 04/07/2023 7:01 AM UPPER INSPECTOR 04/07/2023 7:30 AM [facility] Chuck Carpenter MD HEMATOLOGY ORDERABLE [facility] [address] [place] [address] * CT Spine Lumbar w/o Contrast (04/06/2023 12:10 PM UPPER INSPECTOR) Anatomical Region Laterality Modality Spine Computed Tomogra phy 04/06/2023 12:0 6 PM UPPER INSPECTOR Impressions 04/06/2023 12:22 PM UPPER INSPECTOR IMPRESSION: 1. Operative changes of posterior jarred [...] Janice Talavera M.D. Narrative 04/06/2023 12:22 PM UPPER INSPECTOR EXAM: ??CT SPINE LUMBAR W/O CON DATE: [...] & HIP LATERAL BILAT (04/06/2023 10:07 AM UPPER INSPECTOR) Anatomical Region Laterality Modality ABD/Pelvis Computed Radiogr aphy 04/06/2023 10:0 8 AM UPPER INSPECTOR Impressions 04/06/2023 10:09 AM UPPER INSPECTOR IMPRESSION: 1. 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 No discrete acute bony pelvic or proximal femoral fracture visualized. REPORT SIGNED BY Janice Talavera M.D. Narrative 04/06/2023 10:09 AM UPPER INSPECTOR EXAM: ??XR PELVIS & HIP LATERAL BILAT [...] REPORT SIGNED BY Janice Talavera M.D. Nj Thonre PA-C XRAY ORDERABLE * Hgb A1c (Glycosolated Hgb) (04/05/2023 7:07 PM UPPER INSPECTOR) Pathologist [facility] HBA1C (GLYCOSOLATED HGB) 5.1 <5.7 % 04/06/2023 12:57 PM UPPER INSPECTOR [facility] EAG (EST. AVERAGE GLUCOSE) 100 <117 mg/dL 04/06/2023 12:57 PM [facility] Blood 04/05/2023 7:07 PM UPPER INSPECTOR 04/05/2023 7:34 PM UPPER INSPECTOR Chuck Carpenter MD CHEMISTRY ORDERABLE Performing Organization Address City/State/[facility] Co de Phone Number [facility] [address] [facility] [place] [address] * (ABNORMAL) CBC (Hgb,Hct,WBC,RBC,Platelet) (04/05/2023 7:07 PM UPPER INSPECTOR) Pathologist [facility] WBC 12.6(H) 4.3 - 10.8 K/uL 04/05/2023 7:52 PM [facility] RBC 3.05(L) 4.20 - 5.40 M/uL 04/05/2023 7:52 PM [facility] Hemoglobin 9.6(L) 12.0 - 16.0 gm/dL 04/05/2023 7:52 PM [facility] Hematocrit 28.7(L) 36.0 - 48.0 % 04/05/2023 7:52 PM [facility] MCV 94 80 - 100 fL 04/05/2023 7:52 PM [facility] MCH 32 27 - 33 pg 04/05/2023 7:52 PM [facility] MCHC 33 33 - 36 gm/dL 04/05/2023 7:52 PM [facility] RDW 13.1 11.5 - 14.5 % 04/05/2023 7:52 PM [facility] Platelet Count 483(H) 150 - 400 K/UL 04/05/2023 7:52 PM [facility] MPV 9.3 6.5 - 12 fL 04/05/2023 7:52 PM UPPER INSPECTOR [facility] Blood 04/05/2023 7:07 PM UPPER INSPECTOR 04/05/2023 7:34 PM UPPER INSPECTOR Sergio Lara HEMATOLOGY ORDERABLE Performing Organization Address [facility] Co de Phone Number [facility] [address] [place] [address] * (ABNORMAL) Hemoglobin (04/03/2023 7:00 AM UPPER INSPECTOR) Only the most recent of4 resultswithin the time period is included. Hemoglobin 8.5(L) 12.0 - 16.0 gm/dL 04/03/2023 7:25 AM UPPER INSPECTOR [facility] Blood 04/03/2023 7:00 AM UPPER INSPECTOR 04/03/2023 7:17 AM UPPER INSPECTOR Nj Thorne PA-C HEMATOLOGY ORDERA BLE Performing Organization Address [facility] de Phone Number [facility] [address] [place] [address] * XR SPINE LUMBAR ROUTINE (04/02/2023 10:43 AM UPPER INSPECTOR) Anatomical Region Laterality Modality Spine Computed Radiogr aphy 04/02/2023 11:2 7 AM UPPER INSPECTOR Impressions 04/02/2023 11:29 AM UPPER INSPECTOR IMPRESSION: 1. Operative changes of posterior jarred and pedicle screw fixation L1-L5 with posterolateral bone graft material, grossly negative for postoperative purposes. Lumbar vertebral body alignment described in more detail above. 2. Old superior and inferior pubic rami fractures. REPORT SIGNED BY Janice Talavera M.D. Narrative 04/02/2023 11:29 AM UPPER INSPECTOR EXAM: ??XR SPINE LUMBAR ROUTINE DATE: 04/02/2023 [...] Tube-SST (Lab Use Only) (04/02/2023 7:28 AM UPPER INSPECTOR) Blood 04/02/2023 7:28 AM UPPER INSPECTOR 04/02/2023 7:53 AM UPPER INSPECTOR Bonita Estrada MD CHEMISTRY ORDERABLE [facility] [address] [place] [id number] * XR C-ARM SPINE (04/01/2023 10:36 AM UPPER INSPECTOR) Anatomical Region Laterality Modality Computed Radiogr aphy 04/01/2023 12:3 5 PM UPPER INSPECTOR Impressions 04/01/2023 12:37 PM UPPER INSPECTOR IMPRESSION: 1. ??Procedural assistance. REPORT SIGNED BY DR. MARCUS JUNE Narrative 04/01/2023 12:37 PM UPPER INSPECTOR EXAM: ??XR C-ARM SPINE DATE: ?? 04/01/2023 [...] XRAY ORDERABLE * Intubation (04/01/2023 8:15 AM UPPER INSPECTOR) Narrative Monika Ireland APRN, CRNA - 04/01/2023 8:15 AM UPPER INSPECTOR Monika Ireland APRN, CRNA ? 04/01/2023 ??8:27 [...] Confirm (Lab Use Only) (04/01/2023 6:47 AM UPPER INSPECTOR) Group and Rh O Positive 04/01/2023 9:09 AM UPPER INSPECTOR [facility] Blood 04/01/2023 6:47 AM UPPER INSPECTOR 04/01/2023 7:26 AM UPPER INSPECTOR Nj Deonna Thorne PA-C BLOOD BANK ORDERA BLE Performing Organization Address [facility] de Phone Number [address] [address] * Type and Screen (04/01/2023 6:46 AM UPPER INSPECTOR) Group and Rh O Positive 04/01/2023 7:39 AM UPPER INSPECTOR [facility] Antibody Screen Negative 04/01/2023 7:39 AM UPPER INSPECTOR [facility] Blood 04/01/2023 6:46 AM UPPER INSPECTOR 04/01/2023 6:50 AM UPPER INSPECTOR Nj Deonna Thorne PA-C BLOOD BANK ORDERA BLE Performing Organization Address [facility] de Phone Number [address] [address] * Protime/INR (04/01/2023 6:46 AM UPPER INSPECTOR) INR 1.0 0.9 - 1.2 04/01/2023 7:06 AM UPPER INSPECTOR [facility] Blood 04/01/2023 6:46 AM UPPER INSPECTOR 04/01/2023 6:50 AM UPPER INSPECTOR Nj Deonna SCHWAB-C COAGULATION ORDER ABLE Performing Organization Address [facility] de Phone Number [facility] [address] [address] * Partial Thromboplastin Time (04/01/2023 6:46 AM UPPER INSPECTOR) PTT 28.8 24.0 - 31.0 SEC. 04/01/2023 7:06 AM [facility] Blood 04/01/2023 6:46 AM UPPER INSPECTOR 04/01/2023 6:50 AM UPPER INSPECTOR [facility] - 04/01/2023 7:06 AM UPPER INSPECTOR aPTT Therapeutic Reference Ranges: Argatroban protocol: 60 - 85 seconds Bivalirudin protocol: 43 - 71 seconds Nj Thorne PA-C COAGULATION ORDER ABLE Performing Organization Address [facility] Number [facility] [address] [place] [address] * Hematocrit (04/01/2023 6:46 AM UPPER INSPECTOR) Hematocrit 37.3 36.0 - 48.0 % 04/01/2023 7:07 AM [facility] Blood 04/01/2023 6:46 AM UPPER INSPECTOR 04/01/2023 6:50 AM UPPER INSPECTOR Nj Thorne PA-C HEMATOLOGY ORDERA BLE Performing Organization Address [facility] de [facility] Number [facility] [address] [place] [address] * (ABNORMAL) POCT Glucose Meter (04/01/2023 6:12 AM UPPER INSPECTOR) GLUCOSE WB METER 105(H) 60 - 100 mg/dL 04/01/2023 6:38 AM [facility] Blood 04/01/2023 6:12 AM UPPER INSPECTOR 04/01/2023 6:38 AM UPPER INSPECTOR Isai Foss MD LAB POINT OF CARE TE [facility] RES[facility] [address] [address] from Last 3 Months Advance Directives For more information, please contact: [phone] Latest Code Status on File Code Status [...] Physician Abelardo leal Not discussed Care Teams Magistrate Judge Relationship Specialty [place] [address] [place] [address] PCP - General Internal Medicine 04/02/23 [facility] [address] [address] PCP - Primary Care Clinic 04/02/23
--- OUTSIDE RECORDS SUMMARY | 2023-04-07 09:28 | XMS_ITS | Encounter Summary ---
Author Name Unknown Organization [facility] Address [address] [place] [address] [place] [address] Care Team Providers Care Payroll Professional Name Role Phone Carolynn Alvarado MD Primary Care Provider [phone] Carolynn Alvarado MD Primary Care Provider [phone] [facility] Unavailable Encounter Details Date Type Department Care Team (Late st Contact Info) Description 03/28/2023 Prep For Procedure NMR PROVIDER [address] [place], [place] [address] [address] Nj Thorne, PAYogiC [address] [id number] Social History Tobacco Use Types Packs/Day Years Used Date Smoking Tobacco: Never Smokeless Tobacco: Never Alcohol Use Standard Drinks/Week Comments Never 0 (1 standard drink = 0.6 oz pur e alcohol) [facility] Utilities Answer Date Recorded In the past 12 months has [facility] [employer], gas, oil, or water [employer] threatened to shut off services in your [...] place to sleep or slept in a skilled nursing (including now)? No 04/01/2023 Sex and Gender Information Value Date Recorded Sex Assigned at Female 03/11/2023 11:10 AM PIZZA BAKER Gender Identity Female 03/11/2023 11:10 AM PIZZA BAKER Sexual Orientation Straight 03/11/2023 11 :10 AM PIZZA BAKER documented as of this encounter Plan of Treatment Not on file documented as of this encounter Visit Diagnoses Not on filedocumented in this encounter Additional Health Concerns Infection Onset Date Last Indicated Resolved Time MRSA Comment:CLEARED by Infection Prevention 04/01/23 04/01/2023 04/01/2023 04/01/2023 11:11 AM PIZZA BAKER documented as of this encounter Care Teams Payroll Professional Relationship Specialty [place] [address] [place] [address] PCP - General Internal Medicine 03/12/23 04/01/23 [place] [address] [address] [place] [address] PCP - General Internal Medicine 04/02/23 Clinic, [facility] [address] [address] [id number] PCP - Primary Care Clinic 04/02/23 documented as of this encounter
--- OUTSIDE RECORDS SUMMARY | 2023-04-07 09:28 | XMS_ITS | Encounter Summary ---
Author Name Unknown Organization [facility] Address [address] [facility] [place] [address] Care Team Providers Care Electrical Engineering Designer Name Role Phone Carolynn Alvarado Primary Care Provider [phone] Ismael Ordoñez PA-C Unavailable [phone] Encounter Details Date Type Department Care Team [...] on filedocumented in this encounter Care Teams Electrical Engineering Designer Relationship Specialty Start Date End Date Carolynn Alvarado PCP - General 05/30/16 Ismael Ordoñez PA-C [address] [place] [id number] Assigned Neuroscience Provider 12/03/20 documented as of this encounter
--- OUTSIDE RECORDS SUMMARY | 2023-04-07 09:28 | XMS_ITS | Encounter Summary ---
Author Name Unknown Organization [facility] Address [address] [facility] [place] [address] Care Team Providers Care Lead Solutions Architect Name Role Phone Carolynn Alvarado Primary Care Provider [phone] Ismael Ordoñez PA-C Unavailable Reason for Referral * Consultation (Routine: Next available opening) - Pending Review Specialty Diagnoses / Procedures Referred By Contselvin t Referred To Contact Pain Medicine Diagnoses S/P lumbar microdiscectomy Lumbar radiculopathy Ismael Ordoñez PA-C [address] [facility] [facility] [address] [place] [address] Referral ID Status Reason Start Date Expiration Date V isits Requested Visits Authorized Pending Review 08/02/2022 08/02/2023 1 1 Question Answer Reason for Referral: Procedure Order Procedure: Epidural (Advanced imaging required in the last 3 years) Location: Lumbar Scheduling Instructions: [employer] will call you to coordinate care as prescribed your provider. If you don? t hear from a retail representative within 2 business days, please call . Additional Information: Right L1-2 TFESI Comments Please be aware that coverage of these services is subject to the terms and limitations of your health insurance plan. Call member services at your health plan with any benefit or coverage questions. [employer] will call you to coordinate care as prescribed your provider. If you don? t hear from a retail representative within 2 business days, please call . Reason for Visit * Reason Comments Consult Right sided low back pain with burning and shooting, radiates down right leg stopping above knee, numbness and tingling in upper leg outer thigh Encounter Details Date Type Department Care Team (Latest Contact Info) Description 08/02/2022 10:00 AM CDT Office Visit [facility] Neurology [facility] [id number] [facility], [address] [place] [address] Ismael Ordoñez PA-C [address] [facility] [address] [place] [id number] S/P lumbar microdiscectomy (Primary Dx); Lumbar radiculopathy [...] Associated Diagnoses Orde r Schedule Pain Management Industrial Manufacturing Technician Referral Referral Routine: Next available opening S/P lumbar microdiscectomy Lumbar radiculopathy Expected: 08/02/2022 (Approximate), Expires: 08/03/2023 documented as of this encounter Visit Diagnoses Diagnosis S/P lumbar microdiscectomy- Primary Other postprocedural status Lumbar radiculopathy Thoracic or lumbosacral neuritis or radiculitis, unspecified documented in this encounter Care Teams Lead Solutions Architect Relationship Specialty Start Date End Date Carolynn Alvarado PCP - General 05/30/16 Ismael Ordoñez PA-C [address] [place] [address] Assigned Neuroscience Provider 12/03/20 documented as of this encounter
--- OUTSIDE RECORDS SUMMARY | 2023-04-07 09:28 | XMS_ITS | Encounter Summary ---
Author Name Unknown Organization [facility] Address [address] [facility] [place] [address] Care Team Providers Care Windows Support Engineer Name Role Phone Carolynn Alvarado Primary Care Provider [phone] Ismael Ordoñez PA-C Unavailable [phone] Encounter Details Date Type Department Care Team [...] on filedocumented in this encounter Care Teams Windows Support Engineer Relationship Specialty Start Date End Date Carolynn Alvarado PCP - General 05/30/16 Ismael Ordoñez PA-C [address] [place] [id number] Assigned Neuroscience Provider 12/03/20 documented as of this encounter
--- OUTSIDE RECORDS SUMMARY | 2023-04-07 09:28 | XMS_ITS | Encounter Summary ---
Author Name Unknown Organization [facility] Address [address] [facility] [place] [address] Care Team Providers Care Head Cager Name Role Phone Carolynn Alvarado Primary Care Provider [phone] Ismael Ordoñez PA-C Unavailable Reason for Visit * Reason Onset Date Comments Appointment 10/22/2022 Encounter Details Date Type Department Care Team (Late st Contact Info) Description 10/22/2022 Telephone [facility] [address] [id number] [place] [address] [place] [address] Appointment Social History Tobacco Use [...] on filedocumented in this encounter Care Teams Head Cager Relationship Specialty Start Date End Date Carolynn Alvarado PCP - General 05/30/16 Ismael Ordoñez PA-C [address] [place] [id number] Assigned Neuroscience Provider 12/03/20 documented as of this encounter
--- OUTSIDE RECORDS SUMMARY | 2023-04-07 09:28 | XMS_ITS | Encounter Summary ---
Author Name Unknown Organization [facility] Address [address] [place] [address] Care Team Providers Care Shine Worker Name Role Phone Carolynn Alvarado MD Primary Care Provider [phone] Encounter Details Date Type Department Care Team (Latest Contact Info) Description 03/12/2023 Travel Social History Tobacco Use Types Packs/Day Years Used Date Smoking Tobacco: Never Assessed Sex and Gender Information Value Date Recorded Sex Assigned at Female 03/11/2023 11:10 AM MOTOR GRADER OPERATOR Gender Identity Female 03/11/2023 11:10 AM MOTOR GRADER OPERATOR Sexual Orientation Straight 03/11/2023 11 :10 AM MOTOR GRADER OPERATOR documented as of this encounter Plan of Treatment Not on file documented as of this encounter Visit Diagnoses Not on filedocumented in this encounter Care Teams Shine Worker Relationship Specialty [place] [address] [address] [place] [id number] PCP - General Internal Medicine 03/12/23 04/01/23 documented as of this encounter
--- OUTSIDE RECORDS SUMMARY | 2023-04-07 09:28 | XMS_ITS | Encounter Summary ---
Author Name Unknown Organization [facility] Address [address] [facility] [place] [address] Care Team Providers Care Industry Analyst Name Role Phone Carolynn Alvarado Primary Care Provider [phone] Ismael Ordoñez PA-C Unavailable Reason for Referral * Clinically Administered Medications (Routine) - Closed Specialty Diagnoses / Procedures Referred By Contac t Referred To Contact Pain & Palliative Care Diagnoses UNKNOWN Procedures [place] R[place] [address] [facility] [address] [place] [address] [facility] [address] [facility] [address] [place] [address] Referral ID Status Reason Start Date Expiration Date Visits Re quested Visits Authorized Closed 08/09/2022 08/09/2023 1 1 Reason for Visit * Reason Comments Pain * Consultation (Routine: Next available opening) - Pending Review Specialty Diagnoses / Procedures Referred By Contac t Referred To Contact Pain Medicine Diagnoses S/P lumbar microdiscectomy Lumbar radiculopathy Ismael Ordoñez PA-C [address] [place] [address] Referral ID Status Reason Start Date Expiration Date V isits Requested Visits Authorized Pending Review 08/02/2022 08/02/2023 1 1 Encounter Details Date Type Department Care Team (Latest Contact Info) Description 08/09/2022 10:15 AM CDT Radiology Injection Office Visit [facility] [place] [id number] [place] [address] [address] [place], [place] [address] Ismael Ordoñez PA-C [address] [facility] [address] [place], [place] [id number] Raeann [place]ña [place] [address] [facility] [address] [place] [address] Lumbar radiculopathy (Primary Dx) Social [...] Cordova RN - 08/09/2022 10:15 AM CDT [facility] Procedure Discharge Instructions Today you [...] pain center line during work hours at [phone] on-call physician after hours at [phone]: -Fever over 100 degree F -Swelling, bleeding, [...] Peña MD - 08/09/2022 10:15 AM CDT [facility] - Procedure Note Date of Service: 08/09/2022 Procedure performed: Right L1-2 transforaminal epidural steroid injection with fluoroscopic guidance Diagnosis: Lumbar spondylosis; Lumbar radiculitis/radiculopathy Ingot Stripper: Raeann Peña MD Anesthesia: None Indications: Michelle [...] the patient was advised to contact the [facility] for any of the following: Fever, chills, or night sweats New onset of pain, numbness, or weakness Any questions/concerns regarding the procedure If unable to contact the Pain Center, the patient was instructed to go to a local Emergency Room for any complications. 2. The patient should follow-up with the referring provider Raeann Peña MD [facility] [place] documented in this encounter Nursing Notes * Nissa Su, INSPECTOR AND CLIPPER - 08/09/2022 10:15 AM CDT Pre-procedure Intake If YES to any questions or NO to having a taxicab driver Please complete laminated checklist and leave [...] oral steroids? 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 NA [...] home? Yes Signature/Title: Sofia Cordova RN RN Card Lacer [facility] documented in this encounter [...] from the original result was not included. [facility] - Procedure Note Date of Service: 08/09/2022 Procedure performed: Right L1-2 ??transforaminal epidural steroid injection with fluoroscopic guidance Diagnosis: Lumbar spondylosis; Lumbar radiculitis/radiculopathy Ingot Stripper: Raeann Peña MD Anesthesia: None Indications: Michelle [...] the patient was advised to contact the [facility] for any of the following: Fever, chills, or night sweats New onset of pain, numbness, or weakness Any questions/concerns regarding the procedure If unable to contact the Pain Center, the patient was instructed to go to a local Emergency Room for any complications. 2. The patient should follow-up with the referring provider Raeann Peña MD [facility] Raeann Peña MD [facility] ORDERABLES documented in this encounter [...] mLs documented in this encounter Care Teams Industry Analyst Relationship Specialty Start Date End Date Carolynn Alvarado PCP - General 05/30/16 Ismael Ordoñez PA-C [address] [place] [address] Assigned Neuroscience Provider 12/03/20 documented as of this encounter
--- OUTSIDE RECORDS SUMMARY | 2023-04-07 09:28 | XMS_ITS | Encounter Summary ---
Author Name Unknown Organization [facility] Address [address] [place] [id number] Care Team Providers Care Instruction Dean Name Role Phone Carolynn Alvarado MD Primary Care Provider [phone] Reason for Visit * Inpatient Admission (Routine) Specialty Diagnoses / Procedures Referred By Contselvin t Referred To Contact Diagnoses Degeneration of lumbar intervertebral disc Degeneration of lumbar intervertebral disc [M51.36] Procedures ARTHRODESIS POSTERIOR/POSTEROLATERAL LUMBAR SPINE FUSN,POST TECH,EA ADDNL* INSERT VERT FIX DEV,POST,3-6 * ALLOGRAFT FOR SPINE SURGERY ONLY MORSELIZED SPIN BONE AUTOGRFT LOCAL L1-5 POSTERIOR FUSION WITH INSTRUMENTATION WITH NEURO MONITORING Referral ID Status Reason Start Date Expiration Date Visits Re quested Visits Authorized [id number] 1 1 Encounter Details Date Type Department Care Team (Late st Contact Info) Description 04/01/2023 7:25 AM [facility] - 04/01/2023 11:50 AM [facility] Surgery [facility] Operating Room [address] [place] [id number] Isai Foss MD [address] [place] [address] L1-5 POSTERIOR FUSION WITH INSTRUMENTATION WITH NEURO [...] drink = 0.6 oz pur e alcohol) [facility] Utilities Answer Date Recorded In the [...] place to sleep or slept in a long term (including now)? No 04/01/2023 Sex and Gender Information Value Date Recorded Sex Assigned at Female 03/11/2023 11:10 AM [facility] Gender Identity Female 03/11/2023 11:10 AM [facility] Sexual Orientation Straight 03/11/2023 11 :10 AM [facility] documented as of this encounter Last Filed Vital Signs Vital Sign Reading Time Taken Comments Blood Pressure 102/59 04/01/2023 11:45 AM [facility] Pulse 65 04/01/2023 11:45 AM [facility] Temperature 36.6 ??C (97.9 ??F) 04/01/2023 11:[address] Respiratory Rate 16 04/01/2023 11:45 AM [facility] Oxygen Saturation 100% 04/01/2023 11:45 AM [facility] Inhaled Oxygen Concentration - - Weight 62.1 kg (137 lb) 03/26/2023 1:50 PM [facility] Height 162.6 cm (5' 4) 03/26/2023 1:50 PM [facility] Body Mass Index 25.58 04/01/2023 4:45 PM [facility] documented in this encounter Medications at Time [...] BONE GROWTH STIMULATOR)Indications: S/P lumbar fusion Company: [email or web address] - for home use. 1 each 0 [...] 04/03/2023 3:17 PM CST Michelle Franz 1945 [id number] P: Discharge A: Discharged via wheelchair to home at 1513 escorted by nursing home physician I: Discharge information and arrangements included: review of written discharge instructions, review of purpose and side effects of new medication R:Patient expressed understanding of information. [facility] * Juilus Ann MD - 04/03/2023 11:42 AM CST [...] iron pills. Patient would like to buy [id number] iron pills. Hypertension; -Continue PHILANTHROPY OFFICER amlodipine and atenolol Chronic pain; Continue Cymbalta [...] : Prior to Admission Julius Ann MD [facility] Medicine [facility] * Larry Carrasco, PT - 04/03/2023 9:37 AM CST Physical Therapy PT orders received and acknowledged. Greeted pt at bedside this morning, pt emotional and reportinghigh pain levels along with distress regarding upcoming discharge. Pt declining PT at this time, reporting she has a walker at home, 3 TIM, and available assist from her daughter who lives very closeby. Arc Cutter attempted to encourage pt to participate in evaluation in order to full assess pt's ability to return home safely, pt declined. PT will continue to follow, plan to re-attempt PT evaluationat another time. Larry Carrasco, PT, DPT [facility] * Trevon Buenrostro PA-C - 04/03/2023 8:38 [...] Clonus bilateral Trevon Buenrostro PA-C 8:39 AM [facility] Office: [phone] [facility] * Daisha Kam RN - 04/03/2023 5:51 [...] I- Invasive Devices: PIVx2, D- Discharge: TBD [facility] * Tamy Sosa RN - 04/02/2023 10:30 PM CST [id number] BP soft this shift, 500cc NS Bolus [...] to wok with PT. Tamy Sosa RN [facility] * Ros Landis MD - 04/02/2023 8:08 PM CST BRIEF CROSS COVER NOTE Paged by bedside nursing regarding hypotension, 91/52, MAP 65. Plan: NS 500mL bolus ordered Ros Landis MD [facility] * Seymour Marvin, RN - 04/02/2023 4:01 [...] Home possibly on 04/03. Dtr will transport. [facility] * Juanita Levin, PT - 04/02/2023 11:49 [...] third time today. Will attempt again tomorrow. [facility] * Julius Ann MD - 04/02/2023 10:49 [...] -Repeat hemoglobin ordered this afternoon. 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 Trevon Buenrostro PA-C 12:32 PM [facility] Office: [phone] [facility] * Kpasie, Kunal, RN - 04/02/2023 2:48 [...] Invasive Devices: PIVx2, garrett D- Discharge: TBD [facility] * Bonita Estrada MD - 04/01/2023 7:37 [...] DVT prophylaxis: Surgery Disposition: Per surgery Access. [facility] Bonita [facility] Service [facility] * Janice Arriaza RN - 04/01/2023 6:45 [...] to call for help, name of assigned toddler caregiver, initialphysician orders, hourly rounding procedures, belongings checklist, unit and plan of care. R. Patient expressed understanding of information.. Janice Arriaza RN [facility] * Isaac Buenrostro - 04/01/2023 4:43 PM CST [facility] [phone] Patient seen in room today for fitting of an [place] LSO. Brace was fit, the use and care was covered, Overall fit of the brace after I finished looks good. Patient to follow wearing parameters set by ordering provider. Please reach out with any further questions or concerns. Isaac Ying/LPVISHNU C/LOF [facility] * Jolene Guzmán - 04/01/2023 11:11 AM CST S: Infection/Isolation Review B: Patient with history of MDRO requires isolation to prevent transmission in the healthcare setting A: Patient meets facility clearing protocol for MRSA R: Discontinue Contact Precautions. Manage cares using Standard Precautions. Infection Prevention [id number] [facility] documented in this encounter Consult Notes * [...] Patient Seen In: Room Family/Caregiver Present: No Customs Guard Used?: NA Hearing: Within Functional Limits Lines [...] slip on shoes in figure four stance [facility] set up assist.) FUNCTIONAL MOBILITY Bed Mobility [...] Frame Short term goals target date: 04/02/23 [facility] goals target date: 04/02/23 Patient/Family Participation in [...] ADLs and functional transfers. Outcome: Goal Met Telephone Betting Clerk Goals Patient will complete ADLs including: feeding, hygiene/grooming, dressing, toileting, with set-up/supervision Outcome: Goal Met [facility] documented in this encounter Nursing Notes * Seymour Marvin RN - 04/03/2023 9:12 AM CST Problem: Pain - Acute Goal: Exhibits reduction in pain to an acceptable level of comfort Outcome: Ongoing Problem: Mobility - Impaired Goal: Demonstrates ability to perform physical activity independently or with assistive devices as needed Outcome: Ongoing [facility] * Daisha Kam RN - 04/03/2023 1:17 AM CST Problem: Pain - Acute Goal: Exhibits reduction in pain to an acceptable level of comfort Outcome: Met this shift Problem: Respiratory Status - Altered, Actual or Risk of Goal: Exhibits no signs or symptoms of respiratory distress Outcome: Met this shift Problem: Falls/Injury-Risk of Goal: Absence of Falls/Injury Outcome: Met this shift [facility] Seymour Riggs RN - 04/02/2023 3:49 PM [...] 0851 by Seymour Marvin RN Outcome: Ongoing [facility] * Seymour Marvin RN - 04/02/2023 8:51 AM CST Problem: Pain - Acute Goal: Exhibits reduction in pain to an acceptable level of comfort Outcome: Ongoing Problem: Mobility - Impaired Goal: Demonstrates ability to perform physical activity independently or with assistive devices as needed Outcome: Ongoing [facility] * Kunal Morrow RN - 04/02/2023 2:48 [...] used to reduce pain sensation Outcome: Ongoing [facility] * Janice Arriaza RN - 04/01/2023 6:52 PM CST Problem: Falls/Injury-Risk of Goal: Absence of Falls/Injury Outcome: Met this shift Flowsheets (Taken 04/01/2023 0140) Environmental Safety Interventions: Standard Interventions in Place Fall Risk Light on Outside Patient Room Fall Risk extermination supervisor Door (NMR) High Risk Armband On (Green Bracelet) Problem: Pain - Acute Goal: Exhibits reduction in pain to an acceptable level of comfort Outcome: Met this shift Problem: Respiratory Status - Altered, Actual or Risk of Goal: Exhibits no signs or symptoms of respiratory distress Outcome: Met this shift [facility] * Florian Franz RN - 04/01/2023 4:27 PM CST Pt a/o x 3. VSS sats WNL on RA. Drsg C/D/I. Neros 5/5 denies numbness. In LE. Pain 2-3/10 denies nausea. Report called to RN A7 [facility] * Amie Mclaughlin RN - 04/01/2023 11:10 AM CST INfectious disease updated on ot h/o MRSA 12 years ago for follow up [facility] documented in this encounter OR Notes * OR Surgeon - Isai Foss MD - 04/01/2023 8:51 AM CST OPERATIVE REPORT Michelle Franz 1945 SURGEON: Isai Foss MD RES HABILITATION ASSISTANT (posterior) STANISLAV Estrada PREOPERATIVE DIAGNOSES: POSTOPERATIVE DIAGNOSIS: Same PROCEDURES: 1. L1-L5 posterolateral spinal fusion 2. L1-L5 posterior instrumentation 3. Allograft, local autograft placed posterolaterally 4. C-arm for intraoperative level localization and hardware evaluation. ANESTHESIA: General, local. COMPLICATIONS: None. SPECIMENS: None. IMPLANTS: Implant Name Type Inv. Item Serial No. Carbon Lamp Cleaner Lot No. LRB No. Used Action NMP FIBERS LARGE - [id number] Bone NMP FIBERS LARGE [id number] [employer] N/A 1 Implanted NMP FIBERS LARGE - [id number] Bone NMP FIBERS LARGE [id number] [employer] N/A 1 Implanted NMP FIBERS LARGE - [id number] Bone NMP FIBERS LARGE [id number] [employer] N/A 1 Implanted INFUSE MED - [id number] Prosthetic Implant Non-Specific INFUSE MED Medtronic SofXOS Digitalek [id number] N/A 1 Implanted CANCELLOUS CHIPS 30CC - [id number] Bone CANCELLOUS CHIPS 30CC [id number] Medtronic Inc N/A 1 Implanted CANCELLOUS CHIPS 60CC - [id number] Bone CANCELLOUS CHIPS 60CC [id number] Medtronic Inc N/A 1 Implanted CANCELLOUS CHIPS 30CC - [id number] Bone CANCELLOUS CHIPS 30CC [id number] Medtronic Inc N/A 1 Implanted CREO 5.5 [...] the PACU for further cares. Postoperative plan: [place] Standing AP and lateral scoliosis x-rays prior to discharge Avoid significant bending, lifting, twisting for 3 months minimum Stanislav Estrada provided assistance with preoperative positioning, prepping, and draping of the patient. The production administrative assistant provided vital operative assistance with retraction [...] of care being made to the anesthesiologist. [facility] * Brief Op Note - Nj Thorne [...] The procedure was medically necessary for an production administrative assistant because Dr. Foss needed the operative exposure and assistance that I provided. This allowed him to safely and efficiently operate. It was also important that I help ligate blood vessels to maintain hemostasis and reduce the bleeding risk. The assistance that I provided reduced operative time which meant less general anesthetic for the patient. Nj Thorne PA-C [facility] documented in this encounter Plan of Treatment Scheduled Referrals Name Type Priority Associated Diagnoses Orde r Schedule Follow Up Follow Up Routine Ordered: 04/02 Follow Up Follow Up Routine Ordered: 04/03 documented as of this encounter Procedures Procedure Name Priority Date/Time Associated Diagnosis Comments HEMOGLOBIN Routine 04/03/2023 7:00 AM [facility] HEMOGLOBIN Timed Procedure 04/02/2023 3:26 PM [facility] XR SPINE LUMBAR ROUTINE STAT 04/02/2023 10:43 AM [facility] EXTRA TUBE-SST (LAB USE ONLY) Routine 04/02/2023 7:28 AM [facility] HEMOGLOBIN Routine 04/02/2023 7:28 AM [facility] XR C-ARM SPINE STAT 04/01/2023 10:36 AM [facility] SPIN BONE AUTOGRFT LOCAL 04/01/2023 7:29 AM [facility] Degeneration of lumbar intervertebral disc ALLOGRAFT FOR SPINE SURGERY ONLY MORSELIZED 04/01/2023 7:29 AM [facility] Degeneration of lumbar intervertebral disc INSERT VERT FIX DEV,POST,3-6 * 04/01/2023 7:29 AM [facility] Degeneration of lumbar intervertebral disc SPINE FUSN,POST TECH,EA ADDNL* 04/01/2023 7:29 AM [facility] Degeneration of lumbar intervertebral disc ARTHRODESIS POSTERIOR/POSTEROLAT ERAL LUMBAR 04/01/2023 7:29 AM [facility] Degeneration of lumbar intervertebral disc ABORH CONFIRM (LAB USE ONLY) STAT 04/01/2023 6:47 AM [facility] TYPE AND SCREEN STAT 04/01/2023 6:46 AM [facility] PROTIME/INR STAT 04/01/2023 6:46 AM [facility] PARTIAL THROMBOPLASTIN TIME STAT 04/01/2023 6:46 AM [facility] HEMOGLOBIN STAT 04/01/2023 6:46 AM [facility] HEMATOCRIT STAT 04/01/2023 6:46 AM [facility] POCT GLU METER STAT 04/01/2023 6:12 AM [facility] documented in this encounter Results * (ABNORMAL) Hemoglobin (04/03/2023 7:00 AM [facility]) Only the most recent of4 resultswithin the time period is included. Hemoglobin 8.5(L) 12.0 - 16.0 gm/dL 04/03/2023 7:25 AM [facility] Blood 04/03/2023 7:00 AM [facility] 04/03/2023 7:17 AM [facility] Nj Thorne PA-C HEMATOLOGY ORDERA BLE [facility] [address] [place], [place] [id number] * XR SPINE LUMBAR ROUTINE (04/02/2023 10:43 AM [facility]) Anatomical Region Laterality Modality Spine Computed Radiogr aphy 04/02/2023 11:2 7 AM [facility] Impressions 04/02/2023 11:29 AM [facility] IMPRESSION: 1. Operative changes of posterior danny and pedicle screw fixation L1-L5 with posterolateral bone graft material, grossly negative for postoperative purposes. Lumbar vertebral body alignment described in more detail above. 2. Old superior and inferior pubic rami fractures. REPORT SIGNED BY Janice Talavera M.D. Narrative 04/02/2023 11:29 AM [facility] EXAM: ??XR SPINE LUMBAR ROUTINE DATE: 04/02/2023 [...] Tube-SST (Lab Use Only) (04/02/2023 7:28 AM [facility]) Blood 04/02/2023 7:28 AM [facility] 04/02/2023 7:53 AM [facility] Bonita Estrada MD CHEMISTRY ORDERABLE [facility] [address] [place] [address] * XR C-ARM SPINE (04/01/2023 10:36 AM [facility]) Anatomical Region Laterality Modality Computed Radiogr aphy 04/01/2023 12:3 5 PM [facility] Impressions 04/01/2023 12:37 PM [facility] IMPRESSION: 1. ??Procedural assistance. REPORT SIGNED BY DR. MARCUS JUNE Narrative 04/01/2023 12:37 PM [facility] EXAM: ??XR C-ARM SPINE DATE: ?? 04/01/2023 [...] Confirm (Lab Use Only) (04/01/2023 6:47 AM [facility]) Group and Rh O Positive 04/01/2023 9:09 AM [facility] Blood 04/01/2023 6:47 AM [facility] 04/01/2023 7:26 AM [facility] Nj Thorne PA-C BLOOD BANK ORDERA BLE [facility] [address] [address] [place] [address] * Hematocrit (04/01/2023 6:46 AM [facility]) Hematocrit 37.3 36.0 - 48.0 % 04/01/2023 7:07 AM [facility] Blood 04/01/2023 6:46 AM [facility] 04/01/2023 6:50 AM [facility] Nj Deonna Thorne PA-C HEMATOLOGY ORDERA BLE Performing Organization Address [facility] Co de Phone Number [facility] [address] [place] [address] * Type and Screen (04/01/2023 6:46 AM [facility]) [facility] Group and Rh O Positive 04/01/2023 7:39 AM [facility] Antibody Screen Negative 04/01/2023 7:39 AM [facility] Blood 04/01/2023 6:46 AM [facility] 04/01/2023 6:50 AM [facility] Nj Thorne PA-C BLOOD BANK ORDERA BLE Performing Organization Address [facility] de Phone Number [facility] [address] [facility] [address] [facility] [address] [place] [address] * Partial Thromboplastin Time (04/01/2023 6:46 AM [facility]) [facility] PTT 28.8 24.0 - 31.0 SEC. 04/01/2023 7:06 AM [facility] Blood 04/01/2023 6:46 AM [facility] 04/01/2023 6:50 AM [facility] Narrative [facility] - 04/01/2023 7:06 AM [facility] aPTT Therapeutic Reference Ranges: Argatroban protocol: 60 - 85 seconds Bivalirudin protocol: 43 - 71 seconds Nj Deonna Thorne PA-C COAGULATION ORDER ABLE Performing Organization Address [facility] Co de Phone Number [facility] [address] [place] [address] * Protime/INR (04/01/2023 6:46 AM [facility]) INR 1.0 0.9 - 1.2 04/01/2023 7:06 AM [facility] Blood 04/01/2023 6:46 AM [facility] 04/01/2023 6:50 AM [facility] Nj Thorne PA-C COAGULATION ORDER ABLE Performing Organization Address [facility] Co de Phone Number [facility] [address] [place] [address] * (ABNORMAL) POCT Glucose Meter (04/01/2023 6:12 AM [facility]) [facility] GLUCOSE WB METER 105(H) 60 - 100 mg/dL 04/01/2023 6:38 AM [facility] Blood 04/01/2023 6:12 AM [facility] 04/01/2023 6:38 AM [facility] Isai Foss MD LAB POINT OF CARE TE ST RESULTS Performing Organization Address [facility] Co de Phone Number [facility] [address] [place] [address] documented in this encounter Visit Diagnoses Diagnosis [...] Until Discontinued, Post-Op Given 04/03/2023 1:15 PM [facility] 1,000 mg Given 04/03/2023 8:12 AM [facility] 1,000 mg Given 04/02/2023 10:15 PM [facility] 1,000 mg amLODIPine (NORVASC) tablet 10 mg 10 mg, oral, DAILY, First dose on Fri04/02/23 at 0800, Until Discontinued Given 04/03/2023 8:11 AM [facility] 10 mg Given 04/02/2023 8:08 AM [facility] 10 mg atenolol (TENORMIN) tablet 25 mg 25 mg, oral, DAILY, First dose on Fri04/02/23 at 0800, Until Discontinued Given 04/03/2023 8:11 AM [facility] 25 mg Given 04/02/2023 8:08 AM [facility] 25 mg BUPivacaine 0.25%-EPINEPHrine 1:200,000 (PF) (SENSORCAINE) injection INTRA-PROCEDURE NEEDED, Starting on Fri04/01/23 at 0928, Until Fri04/01/23 at 1119, Intra-Op Given 04/01/2023 8:55 AM [facility] 50 mL Procedural D50W IV syringe 25-50 [...] 2030, Until Discontinued Given 04/02/2023 7:57 PM [facility] 20 mg Given 04/01/2023 8:12 PM [facility] 20 mg DULoxetine (CYMBALTA) delayed release capsule 60 mg 60 mg, oral, DAILY, First dose on Fri04/01/23 at 2030, Until Discontinued Given 04/02/2023 7:57 PM [facility] 60 mg Given 04/01/2023 8:11 PM [facility] 60 mg famotidine (PEPCID) tablet 20 mg 20 mg, oral, DAILY, First dose on Fri04/01/23 at 2030, Until Discontinued Given 04/03/2023 8:11 AM [facility] 20 mg Given 04/02/2023 8:08 AM [facility] 20 mg Given 04/01/2023 8:11 PM [facility] 20 mg glucagon, human recombinant (Glucagen) injection [...] effective or tolerated Given 04/02/2023 11:04 PM [facility] 0.5 mg Given 04/02/2023 5:37 PM [facility] 0.5 mg Given 04/02/2023 1:21 PM [facility] 0.5 mg hydrOXYzine HCl (VISTARIL) injection 50 [...] control of analgesics Given 04/03/2023 2:37 AM [facility] 50 mg Given 04/01/2023 9:28 PM [facility] 50 mg naloxone (NARCAN) injection 0.1 mg 0.1 mg, Intravenous, EVERY 1 MINUTE PRN, Starting on Fri04/01/23 at 1109, Until Fri04/03/23 at 2133, Post-Op, Opiate Reversal ondansetron (ZOFRAN) disintegrating tablet 4 mg 4 mg, oral, EVERY 8 HOURS NEEDED, Starting on Fri04/01/23 at 1109, Until Fri04/03/23 at 2133, Post-Op, nausea & vomiting Given 04/03/2023 2:40 AM [facility] 4 mg ondansetron (ZOFRAN) injection 4 mg 4 mg, Intravenous, EVERY 8 HOURS NEEDED, Starting on Fri04/01/23 at 1109, Until Khloe 04/03/23 at 2133, Post-Op, nausea & vomiting oxyCODONE (immediate release) (ROXICODONE) tablet 5-10 mg 5-10 mg, oral, EVERY 4 HOURS NEEDED, Starting on Fri04/01/23 at 1109, Until Khloe 04/03/23 at 2133, Post-Op, Pain, when taking PO Given 04/03/2023 2: 30 PM [facility] 5 mg Given 04/03/2023 10:23 AM [facility] 10 mg Given 04/03/2023 6:44 AM [facility] 10 mg potassium chloride 20 mEq in D5W-NS IV infusion 1000 mL at 50 mL/hr, Intravenous, CONTINUOUS, Starting on Fri04/01/23 at 1115, Until Khloe 04/03/23 at 2133, Post-Op New Bag 04/01/2023 8:22 PM [facility] 50 mL/hr prochlorperazine (COMPAZINE) injection 10 mg [...] at 2133, Spasticity Given 04/03/2023 10:23 AM [facility] 4 mg Given 04/02/2023 4:45 PM [facility] 4 mg Given 04/02/2023 8:07 AM [facility] 4 mg documented in this encounter Active and Recently Administered Medications Times are shown in [facility]. Scheduled Medication Order 04/01/2023 04/02/2023 04/03/2023 acetaminophen [...] injection 10 mg (COMPLETED) 10 mg, Intravenous, CROSS ENTERPRISE INTEGRATOR TO OR, 1 dose, Starting on Fri04/01/23 at 0553, Until Discontinued, Intra-Op 0835 (Given - Provider: Monika Ireland APRN, MIXING MACHINE FEEDER) docusate sodium (COLACE) capsule 200 mg 200 [...] (New Bag - Provider: Monika Ireland APRN, MIXING MACHINE FEEDER)0932 (Rate Change - Provider: Monika Ireland APRN, MIXING MACHINE FEEDER)1014 (Rate Change - Provider: Monika Ireland APRN, MIXING MACHINE FEEDER)1106 (Rate Change - Provider: Monika Ireland APRN, MIXING MACHINE FEEDER)1108 (Stopped - Provider: Monika Ireland APRN, MIXING MACHINE FEEDER) potassium chloride 20 mEq in D5W-NS IV [...] Prevention 04/01/23 04/01/2023 04/01/2023 04/01/2023 11:11 AM [facility] documented as of this encounter Care Teams Instruction Dean Relationship Specialty Start [place] [address] [place] [address] PCP - General Internal Medicine 03/12/23 04/01/23 documented as of this encounter
--- OUTSIDE RECORDS SUMMARY | 2023-04-07 09:28 | XMS_ITS | Encounter Summary ---
Author Name Unknown Organization [place] Address [address] [place] [address] Care Team Providers Care Tailor Men'S Ready To Wear Name Role Phone Carolynn Alvarado Primary Care Provider [phone] Ismael Ordoñez PA-C Unavailable [phone] Encounter Details Date Type Department Care Team [...] on filedocumented in this encounter Care Teams Tailor Men'S Ready To Wear Relationship Specialty Start Date End Date Carolynn Alvarado PCP - General 05/30/16 Ismael Ordoñez PA-C [address] [place] [id number] Assigned Neuroscience Provider 12/03/20 documented as of this encounter
--- OUTSIDE RECORDS SUMMARY | 2023-04-07 09:28 | XMS_ITS | Encounter Summary ---
Author Name Unknown Organization [place] Address [address] [facility] [place] [address] Care Team Providers Care Field Crops Harvest Machine Operator Name Role Phone Carolynn Alvarado Primary Care Provider [phone] Ismael Ordoñez PA-C Unavailable [phone] Reason for Visit * Reason Onset Date Comments Procedure 08/05/2022 Right L1-2 TFESI Encounter Details Date Type Department Care Team (Late st Contact Info) Description 08/05/2022 Telephone [facility] [place] [address] [facility] [address] [place] [address] Pain Management Program, [facility] Procedure (Right L1-2 TFESI) Social History Tobacco [...] be done at which interventional clinic site? [facility] Procedure ordered by Ismael Ordoñez PA-C Procedure ordered? Right L1-2 TFESI ??? Transforaminal Cervical TOM - Send to [facility]) - No [facility] Site providers perform this procedure What insurance would patient like us to bill for this procedure? MEDICARE and MEDICA ?? IF SCHEDULING IN [place] [facility] PLEASE SCHEDULE AT LEAST [...] to Elsa Zuniga Is patient scheduled at [facility]? If YES, route every encounter to [facility] CARE NAVIGATION POOL [[phone]] Is an newspaper peddler needed? 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 (Review Grid) YES: Informed Any chance of ? NO If YES, do NOT schedule and route to white spooler - Dr. Miller route to Rachna Mcbride and PM&R Nurse [[id number]] Is patient actively being treated for cancer or immunocompromised? No If YES, do NOT schedule and route to white spooler/ Dr. Miller's Team Does the patient have a bleeding or clotting disorder? No ?? If YES, okay to schedule AND route to RN nurse celsa/ Dr. Miller's Team ?? (For any patients with platelet count <100, RN must forward to provider) Is patient taking any Blood Thinners OR Antiplatelet medication? No If hold needed, do NOT schedule, route to white spooler/ Dr. Miller's Team ??? Examples: o Blood [...] patient have any questions? NO Elaine Jensen [facility] documented in this encounter Plan of Treatment Not on file documented as of this encounter Visit Diagnoses Not on filedocumented in this encounter Care Teams Field Crops Harvest Machine Operator Relationship Specialty Start Date End Date Carolynn Alvarado PCP - General 05/30/16 Ismael Ordoñez PA-C [address] [place] [address] Assigned Neuroscience Provider 12/03/20 documented as of this encounter
--- OUTSIDE RECORDS SUMMARY | 2023-04-07 09:28 | XMS_ITS | Encounter Summary ---
Author Name Unknown Organization [facility] Address [address] [place] [address] Care Team Providers Care Skiver Box Toe Name Role Phone Carolynn Alvarado MD Primary Care Provider [phone] Encounter Details Date Type Department Care Team (Latest Contact Info) Description 03/26/2023 Travel Social History Tobacco Use Types Packs/Day Years Used Date Smoking Tobacco: Never Smokeless Tobacco: Never Alcohol Use Standard Drinks/Week Comments Never 0 (1 standard drink = 0.6 oz pur e alcohol) Sex and Gender Information Value Date Recorded Sex Assigned at Female 03/11/2023 11:10 AM LOCOMOTIVE FIRER/FIREMAN Gender Identity Female 03/11/2023 11:10 AM LOCOMOTIVE FIRER/FIREMAN Sexual Orientation Straight 03/11/2023 11 :10 AM LOCOMOTIVE FIRER/FIREMAN documented as of this encounter Plan of Treatment Not on file documented as of this encounter Visit Diagnoses Not on filedocumented in this encounter Care Teams Skiver Box Toe Relationship Specialty Start [place] [address] [address] [place] [address] PCP - General Internal Medicine 03/12/23 04/01/23 documented as of this encounter
--- OUTSIDE RECORDS SUMMARY | 2023-04-07 09:28 | XMS_ITS | Encounter Summary ---
Author Name Unknown Organization [place] Address [address] [facility] [address] Care Team Providers Care Stars Analytical Lead Name Role Phone Carolynn Alvarado Qi Primary Care Provider [phone] Ismael Ordoñez PA-C Unavailable [phone] Reason for Visit * Reason Comments RECHECK F/U from injection Encounter Details Date Type Department Care Team (Latest Contact Info) Description 08/20/2022 10:30 AM CDT Office Visit [facility] Neurology Clinics - [address], [address] [place] [address] Ismael Ordoñez PA-C [address] [facility] [address] [place], [place] [address] S/P lumbar microdiscectomy (Primary Dx); Lumbar radiculopathy [...] unspecified documented in this encounter Care Teams Stars Analytical Lead Relationship Specialty Start Date End Date Carolynn Alvarado PCP - General 05/30/16 sImael Ordoñez PA-C [address] [place] [address] Assigned Neuroscience Provider 12/03/20 documented as of this encounter
--- OUTSIDE RECORDS SUMMARY | 2023-04-07 09:28 | XMS_ITS | Referral Summary ---
Author Name Unknown Organization [place] Address [address] [facility] [place] [address] Care Team Providers Care Greenbelt Name Role Phone Carolynn Alvarado Primary Care Provider [phone] Ismael Ordoñez PA-C Unavailable [phone] Allergies Active Allergy Reactions Criticality Noted Date [...] Overview: Added automatically from request for surgery [id number] Resolved Problems Problem Noted Date Diagnosed Date [...] 37 ??C (98.6 ??F) 03/03/2021 9:14 AM TIN POT OPERATOR Respiratory Rate 18 03/03/2021 9:14 AM TIN POT OPERATOR Oxygen Saturation 99% 08/20/2022 10:38 AM CDT Inhaled Oxygen Concentration - - Weight 60 kg (132 lb 4.8 oz) 10/02/2021 10:20 AM CDT Height 165.1 cm (5' 5) 04/04/2021 10:30 AM TIN POT OPERATOR Body Mass Index 22.02 04/04/2021 10:30 AM TIN POT OPERATOR Plan of Treatment Not on file Medical Devices Implanted Type Area Non Licensed Nuclear Equipment Operator Device Identifier Shelf Expiration Date Model / Serial / Lot Graft Bone Crush Canc 15ml [id number] - [id number] Implanted:Qty : 1 on 10/11/2020 by Morgan Avelar MD at [facility] Bone/Ti ssue/Bi ologic N/A: Spine Cervical MUSCULOSKELETAL HELTON 05/26/2023 [id number] / [id number] / 30mm Jarred Implanted:Qty : 2 on 10/11/2020 by Morgan Avelar MD at [facility] N/A: Spine Cervical [employer] [id number] / / [id number] Advance Directives For more information, please contact: [phone] Latest Code Status on File Code Status [...] 2:45 PM 10/11/2020 8:24 AM Care Teams Greenbelt Relationship Specialty Start Date End Date Carolynn Alvarado PCP - General 05/30/16 Ismael Ordoñez PA-C [address] [place] [address] Assigned Neuroscience Provider 12/03/20
--- OUTSIDE RECORDS SUMMARY | 2023-04-07 09:28 | XMS_ITS | Encounter Summary ---
Author Name Unknown Organization [facility] Address [address] [place] [address] Care Team Providers Care Sealer Sander Name Role Phone Carolynn Alvarado MD Primary Care Provider [phone] Encounter Details Date Type Department Care Team (Latest Contact Info) Description 04/01/2023 Travel Social History Tobacco Use Types Packs/Day Years Used Date Smoking Tobacco: Never Smokeless Tobacco: Never Alcohol Use Standard Drinks/Week Comments Never 0 (1 standard drink = 0.6 oz pur e alcohol) [facility] Utilities Answer Date Recorded In the past 12 months has e [employer], gas, oil, or water [employer] threatened to shut off services in your [...] slept in a intermediate (including now)? No 04/01/2023 Sex and Gender Information Value Date Recorded Sex Assigned at Female 03/11/2023 11:10 AM SUPERVISOR PRODUCT INSPECTION Gender Identity Female 03/11/2023 11:10 AM SUPERVISOR PRODUCT INSPECTION Sexual Orientation Straight 03/11/2023 11 :10 AM SUPERVISOR PRODUCT INSPECTION documented as of this encounter Plan of Treatment Not on file documented as of this encounter Visit Diagnoses Not on filedocumented in this encounter Additional Health Concerns Infection Onset Date Last Indicated Resolved Time MRSA Comment:CLEARED by Infection Prevention 04/01/23 04/01/2023 04/01/2023 04/01/2023 11:11 AM SUPERVISOR PRODUCT INSPECTION documented as of this encounter Care Teams Sealer Sander Relationship Specialty Start [place] [address] [address] PCP - General Internal Medicine 03/12/23 04/01/23 documented as of this encounter
--- OUTSIDE RECORDS SUMMARY | 2023-04-07 09:28 | XMS_ITS | Clinical Summary ---
Author Name Unknown Organization [place] Address [address] [facility] [place] [address] Care Team Providers Care Splitting Machine Operator Helper Name Role Phone Carolynn Alvarado Primary Care Provider [phone] Ismael Ordoñez PA-C Unavailable [phone] Allergies Active Allergy Reactions Criticality Noted Date [...] Overview: Added automatically from request for surgery [id number] Resolved Problems Problem Noted Date Diagnosed Date [...] 37 ??C (98.6 ??F) 03/03/2021 9:14 AM BABY SITTER Respiratory Rate 18 03/03/2021 9:14 AM BABY SITTER Oxygen Saturation 99% 08/20/2022 10:38 AM CDT Inhaled Oxygen Concentration - - Weight 60 kg (132 lb 4.8 oz) 10/02/2021 10:20 AM CDT Height 165.1 cm (5' 5) 04/04/2021 10:30 AM BABY SITTER Body Mass Index 22.02 04/04/2021 10:30 AM BABY SITTER Plan of Treatment Health Maintenance Due Date [...] this topic Medical Devices Implanted Type Area Paper Handler Device Identifier Shelf Expiration Date Model / Serial / Lot Graft Bone Crush Canc 15ml [id number] - [id number] Implanted:Qty : 1 on 10/11/2020 by Morgan Avelar MD at [facility] Bone/Ti ssue/Bi ologic N/A: Spine Cervical MUSCULOSKELETAL [place]TON 05/26/2023 [id number] / [id number] / 30mm Jarred Implanted:Qty : 2 on 10/11/2020 by Morgan Avelar MD at [facility] N/A: Spine Cervical [employer] [id number] / / [id number] Advance Directives For more information, please contact: [phone] Latest Code Status on File Code Status [...] 2:45 PM 10/11/2020 8:24 AM Care Teams Splitting Machine Operator Helper Relationship Specialty Start Date End Date Carolynn Alvarado PCP - General 05/30/16 Ismael Ordoñez PA-C [address] [place] [address] Assigned Neuroscience Provider 12/03/20
--- OUTSIDE RECORDS SUMMARY | 2023-04-07 09:29 | XMS_ITS | Encounter Summary ---
Author Name Unknown Organization [facility] Address [address] [place] [address] Care Team Providers Care Learning And Development Manager Name Role Phone Carolynn Alvarado MD Primary Care Provider [phone] Encounter Details Date Type Department Care Team Description 02/19/2023 [facility] [address] [facility]. [place], [place] [address] Mychart, [place] [address] Social History Tobacco Use Types Packs/Day Years [...] Department Care Team Description 04/10/2023 8:30 AM ANIMAL PATHOLOGY TEACHER Appointment [place] [address] [facility] Medicine [address] [place] [phone] [place] [address] [place] [address] 04/15/2023 10:45 AM ANIMAL PATHOLOGY TEACHER Appointment [facility] [address] [facility]. 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
--- OUTSIDE RECORDS SUMMARY | 2023-04-07 09:29 | XMS_ITS | Encounter Summary ---
Author Name Unknown Organization [place] Address [address] [facility] [place] [address] Care Team Providers Care Door Frame Builder Name Role Phone Carolynn Alvarado Primary Care Provider [phone] Morgan Avelar MD Unavailable [phone] Ismael Ordoñez PA-C Unavailable [phone] Encounter Details Date Type Department Care Team (Late st Contact Info) Description 10/20/2020 MyC Medical Advice [facility] [address] [address] Rachna Thomas APRN [facility] [address] [place] [address] [address] [place], [place] [phone] Social History Tobacco Use Types Packs/Day Years [...] on filedocumented in this encounter Care Teams Door Frame Builder Relationship Specialty Start Date End Date Hilario Alvaradocrystal Busby PCP - General 05/30/16 [place] [address] [address] [place] [address] Assigned Neuroscience Provider 01/30/20 12/02/20 Ismael Ordoñez PA-C [address] [place] [address] Assigned Neuroscience Provider 12/03/20 documented as of this encounter
--- OUTSIDE RECORDS SUMMARY | 2023-04-07 09:29 | XMS_ITS | Encounter Summary ---
Author Name Unknown Organization [facility] Address [address] [place] [address] Care Team Providers Care Rn Nursery Name Role Phone Carolynn Alvarado MD Primary Care Provider [phone] Encounter Details Date Type Department Care Team Description 02/17/2023 12:00 PM OBSERVATORY DIRECTOR Lab Visit [facility] [address] [place] [phone] Stress incontinence of urine Social History Tobacco [...] Department Care Team Description 04/10/2023 8:30 AM OBSERVATORY DIRECTOR Appointment [place] [address] Family Medicine [address] [place] [phone] [place] [address] [place] [address] 04/15/2023 10:45 AM OBSERVATORY DIRECTOR Appointment [place] [id number] [facility] [place] [address] Sin Castorena MD [address] [place] [address] documented as of this encounter Procedures Procedure Name Priority Date/Time Associated Diagnosis Comments URINALYSIS ROUTINE, MICRO/CULTURE IF POS Routine 02/17/2023 11:57 AM OBSERVATORY DIRECTOR Stress incontinence of urine documented in this encounter Results * (ABNORMAL) Urinalysis Routine, Micro/Culture if Pos: Clean Catch (02/17/2023 11:57 AM OBSERVATORY DIRECTOR) Urine Culture Comment Urinalysis results do not meet criteria for urine culture reflex. 02/17/2023 11:59 AM OBSERVATORY DIRECTOR [facility] Urine Color Yellow 02/17/2023 11:59 AM [facility] Urine Clarity Clear Clear 02/17/2023 11:59 AM [facility] Specific [place], Urine 1.020 1.005 - 1.030 02/17/2023 11:59 AM [facility] PH Urine 5.5 5.0 - 8.0 02/17/2023 11:59 AM [facility] Protein, Urine Qual (mg/dL) Trace Neg/Trace 02/17/2023 11:59 AM [facility] Glucose Urine Qual (mg/dL) Negative Negative 02/17/2023 11:59 AM [facility] Ketones, Urine (mg/dL) Trace(A) Negative 02/17/2023 11:59 AM [facility] Urobilinogen, Urine (EU/dL) 0.2 <2.0 02/17/2023 11:59 AM [facility] Bilirubin Urine Negative Negative 02/17/2023 11:59 AM [facility] Blood, Urine Negative Neg/Trace 02/17/2023 11:59 AM [facility] Nitrite Urine Negative Negative 02/17/2023 11:59 AM OBSERVATORY DIRECTOR [facility] Leukocyte Est. Negative Negative 02/17/2023 11:59 AM [facility] Urine Source Clean Catch 02/17/2023 11:59 AM [facility] Urine URINE SPECIMEN COLLECTION, CLEAN CATCH / Unknown Non-blood Collection / Unknown 02/17/2023 11:57 AM OBSERVATORY DIRECTOR 02/17/2023 11:57 AM OBSERVATORY DIRECTOR Margarethmeg Edwards [facility] [address] [place] [address], [facility] [phone] documented in this encounter Visit Diagnoses Diagnosis Stress incontinence of urine documented in this encounter Additional Health Concerns Infection Onset Date Last Indicated Resolved Time 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
--- OUTSIDE RECORDS SUMMARY | 2023-04-07 09:29 | XMS_ITS | Encounter Summary ---
Author Name Unknown Organization [place] Address [address] [facility] [place] [address] Care Team Providers Care Payment Processor Name Role Phone Carolynn Alvarado Primary Care Provider [phone] Ismael Ordoñez PA-C Unavailable Encounter Details Date [...] COVID-19? No / Unsure 03/03/2021 9:08 AM SALES COACH documented as of this encounter Plan of Treatment Not on file documented as of this encounter Visit Diagnoses Not on filedocumented in this encounter Care Teams Payment Processor Relationship Specialty Start Date End Date Carolynn Alvarado PCP - General 05/30/16 Ismael Ordoñez PA-C [address] [place] [id number] Assigned Neuroscience Provider 12/03/20 documented as of this encounter
--- OUTSIDE RECORDS SUMMARY | 2023-04-07 09:29 | XMS_ITS | Encounter Summary ---
Author Name Unknown Organization [facility] Address [address] [place] [address] Care Team Providers Care Management Associate Name Role Phone Carolynn Alvarado MD Primary Care Provider [phone] Encounter Details Date Type Department Care Team Description 02/23/2023 Partner ED HIM DEPARTMENT Provider, MD Denice Interface provider interface provider, [address] 02/23/2023 Social History Tobacco Use Types [...] Department Care Team Description 04/10/2023 8:30 AM MANAGEMENT TECHNICIAN Appointment [place] [address] Family Medicine [address] [place] [phone] [place] [address] [place] [address] 04/15/2023 10:45 AM MANAGEMENT TECHNICIAN Appointment [facility] [address] [place] [facility] 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
--- OUTSIDE RECORDS SUMMARY | 2023-04-07 09:29 | XMS_ITS | Encounter Summary ---
Author Name Unknown Organization [facility] Address [address] [place] [address] Care Team Providers Care Tower Switch Operator Name Role Phone Carolynn Alvarado MD Primary Care Provider [phone] Encounter Details Date Type Department Care Team Description 03/31/2023 Orders Only [facility] DEPARTMENT Provider, [place] [address] Social History Tobacco Use Types Packs/Day Years [...] Department Care Team Description 04/10/2023 8:30 AM SIDE SEAM MACHINE OPERATOR Appointment [place] [address] Family Medicine [address] [place] [phone] [place] [address] [place] [address] 04/15/2023 10:45 AM SIDE SEAM MACHINE OPERATOR Appointment [facility] [address] [place] [facility] 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
--- OUTSIDE RECORDS SUMMARY | 2023-04-07 09:29 | XMS_ITS | Encounter Summary ---
Author Name Unknown Organization [facility] Address [address], [place] [address] Care Team Providers Care Program Services Planner Name Role Phone Carolynn Alvarado MD Primary Care Provider [phone] Reason for Visit * Reason Comments Injection Encounter Details Date Type Department Care Team Description 03/03/2023 1:45 PM ELECTRONIC WARFARE OPERATOR Office Visit [facility] [address] [facility] [place] [address] Sin Castorena MD [address] [place], [place] [address] Exudative age-related macular degeneration of right eye [...] Satish Carrillo COA - 03/03/2023 1:45 PM ELECTRONIC WARFARE OPERATOR Control your blood pressure, blood sugar and [...] to keep the eye closed or use [id number] artificial tears for comfort. You may see [...] Eye discharge (other than tears/bloody tears) Call [phone] with any problems. TRONIC WARFARE OPERATOR documented in this encounter Progress Notes * [...] the patient and family- Sin Castorena MD TRONIC WARFARE OPERATOR documented in this encounter Procedure Notes * Satish Carrillo COA - 03/03/2023 1:45 PM CST Intravitreal Injection Operative Report Eye: Right Surgeon: Sin Castorena MD Medicaton: Eylea 0.05 mL (2 mg) Lot number: [id number], Exp 04/2024 Anesthesia: tetracaine, lidocaine gel 5% [...] of a peripheral shadow in the vision. TRONIC WARFARE OPERATOR documented in this encounter Plan of Treatment Upcoming Encounters Date Type Department Care Team Description 04/10/2023 8:30 AM ELECTRONIC WARFARE OPERATOR Appointment [place] [phone] [place] [address] [place] [address] 04/15/2023 10:45 AM ELECTRONIC WARFARE OPERATOR Appointment [facility] [address] [facility]. [place], [place] [phone] Sin Castorena MD [address] [place], [place] [address] documented as of this encounter Visit Diagnoses [...] or cytotoxic medication) Given 03/03/2023 3:05 PM ELECTRONIC WARFARE OPERATOR 2 mg Right Eye documented in this encounter Additional Health Concerns Infection Onset Date Last Indicated Resolved Time 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 (+) 11/07/2015 11/07/2015 documented as of this encounter Care Teams Program Services Planner Relationship Specialty Start [place] [address] [address] [place] [address] PCP - General Internal Medicine 11/09/15 documented as of this encounter
--- OUTSIDE RECORDS SUMMARY | 2023-04-07 09:29 | XMS_ITS | Encounter Summary ---
Author Name Unknown Organization [facility] Address [address] [place] [address] Care Team Providers Care Fence Gate Assembler Name Role Phone Carolynn Alvarado MD Primary Care Provider [phone] Encounter Details Date Type Department Care Team Description 03/24/2023 Notes/[facility] Electrocardiogram, Holter, Event Recorder [address] [place], [place] [phone] Curt Wolfe MD [address] [place] [address] Paroxysmal atrial fibrillation (HRC) (Primary [...] Department Care Team Description 04/10/2023 8:30 AM CHRONOMETER ASSEMBLER Appointment [place] [address] Family Medicine [address] [place] [address] [place] [address] [place] [address] 04/15/2023 10:45 AM CHRONOMETER ASSEMBLER Appointment [facility] [address] [facility]. 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
--- OUTSIDE RECORDS SUMMARY | 2023-04-07 09:29 | XMS_ITS | Encounter Summary ---
Author Name Unknown Organization [facility] Address [address] [address] Care Team Providers Care Mini Baccarat Dealer Name Role Phone Carolynn Alvarado MD Primary Care Provider [phone] Reason for Visit * Reason Comments PRE-OP EXAM Encounter Details Date Type Department Care Team Description 03/27/2023 10:30 AM BRAZER CRAWLER TORCH Pre-Op Visit [place] [address] [address] [place] [address] [phone] [place] [id number] [place] [address] Preop examination (Primary Dx); Lumbosacral radiculopathy [...] Comments Blood Pressure 130/79 03/27/2023 10:25 AM BRAZER CRAWLER TORCH Pulse 82 03/27/2023 10:25 AM BRAZER CRAWLER TORCH Temperature - - Respiratory Rate 16 03/27/2023 10:25 AM BRAZER CRAWLER TORCH Oxygen Saturation - - Inhaled Oxygen Concentration - - Weight 62.1 kg (137 lb) 03/27/2023 10:25 AM BRAZER CRAWLER TORCH Height - - Body Mass Index 23.52 03/24/2023 2:54 PM BRAZER CRAWLER TORCH documented in this encounter Patient Instructions * Patient Instructions* Isidoro Leach MD - 03/27/2023 10:30 AM BRAZER CRAWLER TORCH Pre-op Instructions: Do not eat after midnight [...] described above. In addition, please stop all qrad-obb-iuqajzu medications including aspirin, ibuprofen (Advil, Motrin), naproxen [...] health-related equipment or devices you use daily ER CRAWLER TORCH documented in this encounter Progress Notes * Isidoro Leach MD - 03/27/2023 10:30 AM CST Pre-Operative Assessment 03/27/2023 ET Amb PreOp Assessment Details Procedure lumbar fusion Surgeon Dr. Foss Location Other Other Location Name [facility] Procedure Date 04/01/2023 Juan Martinez [...] it was too expensive. She saw her Metallurgist Process chris few days ago at which time an EKG showed normal sinus rhythm. The plan is to obtain a 14 day ZioPatch after surgery and if she has paroxysmal atrial fibrillation they will start her on Coumadin. Patient Active Problem List Diagnosis Date Noted Lymphocytosis ([facility]) 04/22/2016 Overview Note: 04/22/[address] Norwood - the level of the patient has an absolute lymphocytosis. If persistent this could be early chronic lymphocytic leukemia. Flow cytometry may be helpful to further evaluate if it the count does not normalize Mixed hyperlipidemia ([facility]) 05/14/2017 Overview Note: 05/14/2017 10 year 9.03% (using the ACC/AHA ASCVD risk score). 05/01/2020 9% - DECLINES STATIN - LDL too low, trial atorvastatin 2017 Mild early onset dysthymic disorder, in full remission, with melancholic features, with pure dysthymic syndrome ([facility]) 04/02/2011 Overview Note: Follows Dr Bony Yanes annually - duloxetine 20 mg Essential hypertension ([facility]) 08/21/2002 Overview Note: hydrochlorothiazide 25, atenolol 75, norvasc 5 mg ; Hypertension Psychophysiological insomnia 10/12/2015 Routine health maintenance 02/08/2014 Overview Note: Reviewed at [facility] exam 04/20/06/13/20222020 Menstrual periods: Post menopausal - 1958-1202 d/c'd HRT Calcium/vit D: Recommended daily DEXA: [...] Note: Added automatically from request for surgery [id number] History of dysplastic nevus 09/05/2017 Overview Note: [...] (PT) Behavioral health? Yes; date 2011- at [facility] Other treatment modalities tried: Injection; date 03/31, [...] surgery 2020 DEXA 12/22/2014 mild low, DUE [id number], Ca and D 05/24/2019 worsening, -2, FRAX 24.6% and 8.1% - [facility] return to [facility] BP Aortic insufficiency (HRC) 03/04/2014 Overview [...] described above. In addition, please stop all ggpq-zue-mvnwdfq medications including aspirin, ibuprofen (Advil, Motrin), naproxen [...] by: Isidoro Leach MD 03/27/2023, 7:44 AM ER CRAWLER TORCH documented in this encounter Plan of Treatment Upcoming Encounters Date Type Department Care Team Description 04/10/2023 8:30 AM BRAZER CRAWLER TORCH Appointment [facility] [address] Family Medicine [address] [place] [address] [place] [address] [place] [address] 04/15/2023 10:45 AM BRAZER CRAWLER TORCH Appointment [facility] [address] [facility] [place], [place] [address] Sin Castorena MD [address] [place], [place] [phone] documented as of this encounter Results * Basic Metabolic Panel (03/27/2023 10:51 AM BRAZER CRAWLER TORCH) Sodium 142 136 - 145 mmol/L 03/27/2023 4:45 PM [facility] Potassium 3.7 3.5 - 5.1 mmol/L 03/27/2023 4:45 PM [facility] Chloride 104 98 - 109 mmol/L 03/27/2023 4:45 PM [facility] CO2 25 20 - 29 mmol/L 03/27/2023 4:45 PM [facility] Anion Gap 13 7 - 16 mmol/L 03/27/2023 4:45 PM [facility] Calcium 9.3 8.4 - 10.4 mg/dL 03/27/2023 4:45 PM [facility] BUN 14 7 - 26 mg/dL 03/27/2023 4:45 PM [facility] Creatinine 0.73 0.55 - 1.02 mg/dL 03/27/2023 4:45 PM [facility] Glucose 87 70 - 100 mg/dL 03/27/2023 4:45 PM [facility] Comment:The given reference range is for the fasting state. Non-fasting reference range for glucose is 70 - 180 mg/dL. GFR, Estimated >60 >60 mL/min/1.7 3m2 03/27/2023 4:45 PM [facility] Hours Fasting 0.0 8 - 12 Hours 03/27/2023 4:45 PM [facility] Blood Venipuncture / Unknown 03/27/2023 10:51 AM BRAZER CRAWLER TORCH 03/27/2023 10:51 AM BRAZER CRAWLER TORCH Isidoro Leach MD LAB_1 [facility] [address] [place] [phone], [facility] [phone] * INR/Protime (03/27/2023 10:51 AM BRAZER CRAWLER TORCH) [facility] Protime 12.4 11.8 - 14.6 Seconds 03/27/2023 11:05 AM [facility] INR 0.9 0.9 - 1.1 03/27/2023 11:05 AM [facility] Blood Venipuncture / Unknown 03/27/2023 10:51 AM BRAZER CRAWLER TORCH 03/27/2023 10:51 AM BRAZER CRAWLER TORCH Narrative [facility] - 03/27/2023 11:05 AM BRAZER CRAWLER TORCH Therapeutic range determined by protocol established by anticoagulation provider. Isidoro Leach MD LAB_1 [facility] [address] [place] [address], [facility] [phone] * Complete Blood Count-No Diff (03/27/2023 10:51 AM BRAZER CRAWLER TORCH) [facility] WBC 9.0 3.5 - 10.5 x10(9)/L 03/27/2023 10:55 AM [facility] RBC 4.17 3.90 - 5.03 x10(12)/L 03/27/2023 10:55 AM [facility] Hemoglobin 12.9 12.0 - 15.5 g/dL 03/27/2023 10:55 AM [facility] HCT 39.5 34.9 - 44.5 % 03/27/2023 10:55 AM [facility] MCV 94.7 80.0 - 100.0 fL 03/27/2023 10:55 AM [facility] MCH 30.9 27.6 - 33.3 pg 03/27/2023 10:55 AM [facility] MCHC 32.7 31.5 - 35.2 g/dL 03/27/2023 10:55 AM [facility] RDW 12.7 11.9 - 15.5 % 03/27/2023 10:55 AM [facility] Platelets 432 150 - 450 x10(9)/L 03/27/2023 10:55 AM BRAZER CRAWLER TORCH [facility] Blood Venipuncture / Unknown 03/27/2023 10:51 AM BRAZER CRAWLER TORCH 03/27/2023 10:51 AM BRAZER CRAWLER TORCH Isidoro Leach MD LAB_1 [facility] [address] [place] [address], [facility] [phone] documented in this encounter Visit Diagnoses Diagnosis [...] documented as of this encounter Care Teams Mini Baccarat Dealer Relationship Specialty [place] [address] [address] [place] [address] PCP - General Internal Medicine 11/09/15 documented as of this encounter
--- OUTSIDE RECORDS SUMMARY | 2023-04-07 09:29 | XMS_ITS | Clinical Summary ---
Author Name Unknown Organization [facility] Address [address] [place] [address] Care Team Providers Care Bed Spring Maker Name Role Phone Carolynn Alvarado MD Primary Care Provider Source Comments You are receiving this document as you are listed as the primary care provider,follow-up provider, or the patient has been referred to you for consultation.This is in compliance with the Medicare and[facility] Hospitalcaid EHR Incentive Program,which states Providers who transition their patient to another setting of careor provider of care or refers their patient to another provider of care shouldprovide summary care record for each transition of care or referral. [employer] Allergies Active Allergy Reactions Criticality Noted Date [...] Overview: Added automatically from request for surgery [id number] History of dysplastic nevus 09/05/2017 Overview: rt [...] ?? Behavioral health? Yes; date 2011- at [facility] ?? Other treatment modalities tried: Injection; [...] surgery 2020 DEXA 12/22/2014 mild low, DUE [id number], Ca and D 05/24/2019 worsening, -2, FRAX 24.6% and 8.1% - asked to return to [facility] tx BP Aortic insufficiency 03/04/2014 Overview: Moderate aortic insufficiency per echocardiogram in 2015. 03/03/2018 stable with mild dilation aorta 4.2 diameter Dilated aortic root 03/04/2014 Overview: 11/2015 mild dilation, Dr Wolfe recommended repeat in 3 years. Routine health maintenance 02/08/2014 Overview: Reviewed at [facility] exam 04/20/06/13/20222020 Menstrual periods: Post menopausal - 8372-9912 d/c'd HRT Calcium/vit D: Recommended daily DEXA: [...] DEPARTMENT Provider, MD Denice 03/27/2023 11:00 AM MORTUARY BEAUTICIAN Lab Visit [address] [address] Dilated aortic root (HRC); History of atrial fibrillation; Essential hypertension (HRC) 03/27/2023 10:30 AM MORTUARY BEAUTICIAN Pre-Op Visit [address] [address] Isidoro Leach MD Preop examination (Primary Dx); Lumbosacral radiculopathy at L3; Essential hypertension (HRC); Mixed hyperlipidemia (HRC); Nonrheumatic aortic valve insufficiency (HRC); Dilated aortic root (HRC); History of atrial fibrillation 03/24/2023 3:15 PM MORTUARY BEAUTICIAN Office Visit [facility] [address] [facility] [place] [address] Curt Wolfe MD Nurse, Cardiology II [facility] Paroxysmal atrial fibrillation (HRC) (Primary Dx); Nonrheumatic aortic valve insufficiency (HRC); Essential hypertension (HRC); Mixed hyperlipidemia (HRC); Dilated aortic root (HRC) 03/24/2023 Notes/Orders [facility] Electrocardiogram, Holter, Event Recorder [address] [place] [address] Curt Wolfe MD Paroxysmal atrial fibrillation (HRC) (Primary Dx) 03/03/2023 1:45 PM MORTUARY BEAUTICIAN Office Visit [facility] [address] [facility] 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 [address] Mychart, Generic Provider 02/17/2023 12:00 PM MORTUARY BEAUTICIAN Lab Visit [facility] [address] [place] [phone] Stress incontinence of urine 02/17/2023 11:15 AM MORTUARY BEAUTICIAN Office Visit [place] [address] Obstetrics/Gynecol ogy [address] [place] [phone] Margareth Edwards, ANGELA KAHN Stress incontinence of urine (Primary Dx) 02/03/2023 10:30 AM MORTUARY BEAUTICIAN Office Visit [facility] [address] [facility] [place] [address] Sin Castorena MD Exudative age-related macular degeneration of right eye with active choroidal neovascularization (HRC) (Primary Dx); Epiretinal membrane, left eye 01/31/2023 11:15 AM MORTUARY BEAUTICIAN Therapy [facility] [address] [address] Rona Mcgrath, PT Chronic bilateral low back pain, unspecified whether sciatica present (Primary Dx); Lumbar radiculopathy, right 01/31/2023 Notes/Orders [facility] [place] [id number] [place] [address] Rona Mcgrath, PT 01/20/2023 11:15 AM MORTUARY BEAUTICIAN Therapy [facility] [address] [address] Rona Mcgrath, PT Chronic bilateral low back pain, unspecified whether sciatica present (Primary Dx) 01/14/2023 1:30 PM CDT Therapy [facility] [address] [address] Rona Mcgrath, PT Chronic bilateral low back pain, unspecified whether sciatica present (Primary Dx); Lumbar radiculopathy, right from Last 3 Months Immunizations Name Administration Dates Next Due DT Ped 06/14/1987 Flu Vac Preserv Free (3+yrs) 03/31/2012 Flublok (RIV4) 01/25/2019 Influenza (Fluzone 0.25, 6-35 mos) 02/05/2013 Influenza IIV3 (Trivalent) F luzone Highdose, 65+ Yrs (80522) 01/13/2018,01/02/2017,02/05/2016,2014,01/19/2014 Influenza IIV4 (Quadrivalent ) 0.5mL (55086) 02/05/2013 Influenza IIV4 (Quadrivalent ) Fluzone, 65+ [...] Comments Blood Pressure 130/79 03/27/2023 10:25 AM MORTUARY BEAUTICIAN Pulse 82 03/27/2023 10:25 AM MORTUARY BEAUTICIAN Temperature 36.8 ??C (98.2 ??F) 12/11/2022 9:06 AM CD T Respiratory Rate 16 03/27/2023 10:25 AM MORTUARY BEAUTICIAN Oxygen Saturation 98% 12/11/2022 9:06 AM CDT Inhaled Oxygen Concentration - - Weight 62.1 kg (137 lb) 03/27/2023 10:25 AM MORTUARY BEAUTICIAN Height 162.6 cm (5' 4) 03/24/2023 2:54 PM MORTUARY BEAUTICIAN Body Mass Index 23.52 03/24/2023 2:54 PM MORTUARY BEAUTICIAN Plan of Treatment Upcoming Encounters Date Type Department Care Team Description 04/10/2023 8:30 AM MORTUARY BEAUTICIAN Appointment [facility] [address] Family Medicine [address] [place] [phone] [place] [address] [place] [address] 04/15/2023 10:45 AM MORTUARY BEAUTICIAN Appointment [facility] [address] [facility] [place], [place] [phone] Sin Castorena MD [address] [place] [address] Health Maintenance Due Date Last Done Comments [...] this topic Medical Devices Implanted Type Area Peanut Vendor Device Identifier Shelf Expiration Date Model / Serial / Lot Bone Lasr [id number] - [id number] Implanted:Qty: 1 on 11/25/2017 by Morgan Avelar MD at [facility] BIOLOGIC N/A: SPINE CERVICAL ANTERIOR [employer] - [employer] 06/17/2020 [id number] / [id number] / [id number] Description:C5-6 Bone Lasr [id number] - [id number] Implanted:Qty: 1 on 11/25/2017 by Morgan Avelar MD at [facility] DEVICE N/A: SPINE CERVICAL ANTERIOR Medtronic - [employer] 10/03/2019 [id number] / [id number] / [id number] Description:C3-4 Plt Spnl Translational 57.5mm - [id number] Implanted:Qty: 1 on 11/25/2017 by Morgan Avelar MD at [facility] DEVICE N/A: SPINE CERVICAL ANTERIOR Medtronic - [employer] 11/25/2017 [id number] / NA / NA Scr Sftp Va 4.0x12 - [id number] Implanted:Qty: 2 on 11/25/2017 by Morgan Avelar MD at [facility] DEVICE N/A: SPINE CERVICAL ANTERIOR Medtronic - [employer] 11/25/2017 [id number] / NA / NA Scr Sftp Va 4.0x14 - [id number] Implanted:Qty: 5 on 11/25/2017 by Morgan Avelar MD at [facility] DEVICE N/A: SPINE CERVICAL ANTERIOR Medtronic - [employer] 11/25/2017 [id number] / NA / NA Procedures Procedure Name Priority Date/Time Associated Diagnosis Comments EKG 03/31/2023 BASIC METABOLIC PANEL Routine 03/27/2023 10:51 AM MORTUARY BEAUTICIAN Essential hypertension (HRC) INR/PROTIME Routine 03/27/2023 10:51 AM MORTUARY BEAUTICIAN History of atrial fibrillation COMPLETE BLOOD COUNT-NO DIFF Routine 03/27/2023 10:51 AM MORTUARY BEAUTICIAN Dilated aortic root (HRC) ECG 12 LEAD OUTPATIENT Routine 03/24/2023 3:09 PM MORTUARY BEAUTICIAN Paroxysmal atrial fibrillation (HRC) URINALYSIS ROUTINE, MICRO/CULTURE IF POS Routine 02/17/2023 11:57 AM MORTUARY BEAUTICIAN Stress incontinence of urine from Last 3 Months Results * EKG (03/31/2023) Interface Provider EKG * Basic Metabolic Panel (03/27/2023 10:51 AM [facility]) Sodium 142 136 - 145 mmol/L 03/27/2023 4:45 PM [facility] Potassium 3.7 3.5 - 5.1 mmol/L 03/27/2023 4:45 PM [facility] Chloride 104 98 - 109 mmol/L 03/27/2023 4:45 PM [facility] CO2 25 20 - 29 mmol/L 03/27/2023 4:45 PM [facility] Anion Gap 13 7 - 16 mmol/L 03/27/2023 4:45 PM [facility] Calcium 9.3 8.4 - 10.4 mg/dL 03/27/2023 4:45 PM [facility] BUN 14 7 - 26 mg/dL 03/27/2023 4:45 PM [facility] Creatinine 0.73 0.55 - 1.02 mg/dL 03/27/2023 4:45 PM [facility] Glucose 87 70 - 100 mg/dL 03/27/2023 4:45 PM [facility] Comment:The given reference range is for the fasting state. Non-fasting reference range for glucose is 70 - 180 mg/dL. GFR, Estimated >60 >60 mL/min/1.7 3m2 03/27/2023 4:45 PM [facility] Hours Fasting 0.0 8 - 12 Hours 03/27/2023 4:45 PM [facility] Blood Venipuncture / Unknown 03/27/2023 10:51 AM MORTUARY BEAUTICIAN 03/27/2023 10:51 AM [facility] Isidoro Leach MD LAB_1 [facility] [address] [place] [address], [facility] [phone] * Complete Blood Count-No Diff (03/27/2023 10:51 AM MORTUARY BEAUTICIAN) WBC 9.0 3.5 - 10.5 x10(9)/L 03/27/2023 10:55 AM [facility] RBC 4.17 3.90 - 5.03 x10(12)/L 03/27/2023 10:55 AM [facility] Hemoglobin 12.9 12.0 - 15.5 g/dL 03/27/2023 10:55 AM [facility] HCT 39.5 34.9 - 44.5 % 03/27/2023 10:55 AM [facility] MCV 94.7 80.0 - 100.0 fL 03/27/2023 10:55 AM [facility] MCH 30.9 27.6 - 33.3 pg 03/27/2023 10:55 AM [facility] MCHC 32.7 31.5 - 35.2 g/dL 03/27/2023 10:55 AM [facility] RDW 12.7 11.9 - 15.5 % 03/27/2023 10:55 AM [facility] Platelets 432 150 - 450 x10(9)/L 03/27/2023 10:55 AM [facility] Blood Venipuncture / Unknown 03/27/2023 10:51 AM MORTUARY BEAUTICIAN 03/27/2023 10:51 AM MORTUARY BEAUTICIAN Isidoro Leach MD LAB_1 Performing Organization Address City/State/[facility] Co de Phone Number [facility] [address] [place] [address], [facility] [phone] * INR/Protime (03/27/2023 10:51 AM MORTUARY BEAUTICIAN) Pathologist [facility] Protime 12.4 11.8 - 14.6 Seconds 03/27/2023 11:05 AM [facility] INR 0.9 0.9 - 1.1 03/27/2023 11:05 AM [facility] Blood Venipuncture / Unknown 03/27/2023 10:51 AM MORTUARY BEAUTICIAN 03/27/2023 10:51 AM MORTUARY BEAUTICIAN Narrative [facility] - 03/27/2023 11:05 AM MORTUARY BEAUTICIAN Therapeutic range determined by protocol established by anticoagulation provider. Isidoro Leach MD LAB_1 Performing Organization Address [facility]/ZIP Co de Phone Number [facility] [address] [place] [address], [facility] [phone] * ECG 12 Lead Outpatient (03/24/2023 3:09 PM MORTUARY BEAUTICIAN) Ventricular Rate 61 BPM MUSE GHP Atrial Rate 61 BPM MUSE GHP P-R Interval 158 ms MUSE GHP QRS Duration 86 ms MUSE GHP QT 452 ms MUSE GHP QTc 455 ms MUSE GHP P Pitcher 51 degrees MUSE GHP R Pitcher -8 degrees MUSE GHP T Pitcher 29 degrees MUSE GHP 03/24/2023 3:09 PM MORTUARY BEAUTICIAN Narrative [facility] - 03/24/2023 3:26 PM MORTUARY BEAUTICIAN Sinus rhythm Normal ECG When compared with [...] MD PN ECG ORDERABLES Performing Organization Address [facility]/ZIP Co de Phone Number [facility] [address] [place] [address] * (ABNORMAL) Urinalysis Routine, Micro/Culture if Pos: Clean Catch (02/17/2023 11:57 AM MORTUARY BEAUTICIAN) Urine Culture Comment Urinalysis results do not meet criteria for urine culture reflex. 02/17/2023 11:59 AM [facility] Urine Color Yellow 02/17/2023 11:59 AM [facility] Urine Clarity Clear Clear 02/17/2023 11:59 AM [facility] Specific [place], Urine 1.020 1.005 - 1.030 02/17/2023 11:59 AM [facility] PH Urine 5.5 5.0 - 8.0 02/17/2023 11:59 AM MORTUARY BEAUTICIAN [facility] Protein, Urine Qual (mg/dL) Trace Neg/Trace 02/17/2023 11:59 AM MORTUARY BEAUTICIAN [facility] Glucose Urine Qual (mg/dL) Negative Negative 02/17/2023 11:59 AM MORTUARY BEAUTICIAN [facility] Ketones, Urine (mg/dL) Trace(A) Negative 02/17/2023 11:59 AM [facility] Urobilinogen, Urine (EU/dL) 0.2 <2.0 02/17/2023 11:59 AM MORTUARY BEAUTICIAN [facility] Bilirubin Urine Negative Negative 02/17/2023 11:59 AM MORTUARY BEAUTICIAN [facility] Blood, Urine Negative Neg/Trace 02/17/2023 11:59 AM MORTUARY BEAUTICIAN [facility] Nitrite Urine Negative Negative 02/17/2023 11:59 AM [facility] Leukocyte Est. Negative Negative 02/17/2023 11:59 AM [facility] Urine Source Clean Catch 02/17/2023 11:59 AM [facility] Urine URINE SPECIMEN COLLECTION, CLEAN CATCH / Unknown Non-blood Collection / Unknown 02/17/2023 11:57 AM MORTUARY BEAUTICIAN 02/17/2023 11:57 AM MORTUARY BEAUTICIAN Margareth Edwards APRN, CNM LAB_1 [facility] [address] [place] [address], [facility] [phone] from Last 3 Months Additional Health Concerns [...] 12:24 PM 06/25/2014 1:05 PM Care Teams Bed Spring Maker Relationship Specialty Start [place] [address] [address] [place] [address] PCP - General Internal Medicine 11/09/15
--- OUTSIDE RECORDS SUMMARY | 2023-04-07 09:29 | XMS_ITS | Encounter Summary ---
Author Name Unknown Organization [facility] Address [address] [place] [address] Care Team Providers Care Claim Adjuster Name Role Phone Carolynn Alvarado MD Primary Care Provider [phone] Encounter Details Date Type Department Care Team Description 03/27/2023 11:00 AM THEATRE PROFESSOR Lab Visit [facility] [address] [place] [phone] Dilated aortic root (HRC); History of atrial [...] Department Care Team Description 04/10/2023 8:30 AM THEATRE PROFESSOR Appointment [place] [address] Family Medicine [address] [place] [phone] [place] [address] [place] [address] 04/15/2023 10:45 AM THEATRE PROFESSOR Appointment [facility] [address] [place] [address] Sin Castorena MD [address] [place] [address] documented as of this encounter Procedures Procedure Name Priority Date/Time Associated Diagnosis Comments BASIC METABOLIC PANEL Routine 03/27/2023 10:51 AM THEATRE PROFESSOR Essential hypertension (HRC) COMPLETE BLOOD COUNT-NO DIFF Routine 03/27/2023 10:51 AM THEATRE PROFESSOR Dilated aortic root (HRC) INR/PROTIME Routine 03/27/2023 10:51 AM THEATRE PROFESSOR History of atrial fibrillation documented in this encounter Results * Basic Metabolic Panel (03/27/2023 10:51 AM THEATRE PROFESSOR) Sodium 142 136 - 145 mmol/L 03/27/2023 4:45 PM [facility] Potassium 3.7 3.5 - 5.1 mmol/L 03/27/2023 4:45 PM [facility] Chloride 104 98 - 109 mmol/L 03/27/2023 4:45 PM [facility] CO2 25 20 - 29 mmol/L 03/27/2023 4:45 PM [facility] Anion Gap 13 7 - 16 mmol/L 03/27/2023 4:45 PM [facility] Calcium 9.3 8.4 - 10.4 mg/dL 03/27/2023 4:45 PM [facility] BUN 14 7 - 26 mg/dL 03/27/2023 4:45 PM [facility] Creatinine 0.73 0.55 - 1.02 mg/dL 03/27/2023 4:45 PM [facility] Glucose 87 70 - 100 mg/dL 03/27/2023 4:45 PM [facility] Comment:The given reference range is for the fasting state. Non-fasting reference range for glucose is 70 - 180 mg/dL. GFR, Estimated >60 >60 mL/min/1.7 3m2 03/27/2023 4:45 PM [facility] Hours Fasting 0.0 8 - 12 Hours 03/27/2023 4:45 PM [facility] Blood Venipuncture / Unknown 03/27/2023 10:51 AM THEATRE PROFESSOR 03/27/2023 10:51 AM THEATRE PROFESSOR Isidoro Leach MD LAB_1 [facility] [address] [place] [address], [facility] [phone] * INR/Protime (03/27/2023 10:51 AM THEATRE PROFESSOR) Pathologist [facility] Protime 12.4 11.8 - 14.6 Seconds 03/27/2023 11:05 AM [facility] INR 0.9 0.9 - 1.1 03/27/2023 11:05 AM [facility] Blood Venipuncture / Unknown 03/27/2023 10:51 AM THEATRE PROFESSOR 03/27/2023 10:51 AM THEATRE PROFESSOR Narrative [facility] - 03/27/2023 11:05 AM THEATRE PROFESSOR Therapeutic range determined by protocol established by anticoagulation provider. Isidoro Leach MD LAB_1 Performing Organization Address [facility]/ZIP Co de Phone Number [facility] [address] [place] [address], [facility] [phone] * Complete Blood Count-No Diff (03/27/2023 10:51 AM THEATRE PROFESSOR) [facility] WBC 9.0 3.5 - 10.5 x10(9)/L 03/27/2023 10:55 AM [facility] RBC 4.17 3.90 - 5.03 x10(12)/L 03/27/2023 10:55 AM [facility] Hemoglobin 12.9 12.0 - 15.5 g/dL 03/27/2023 10:55 AM [facility] HCT 39.5 34.9 - 44.5 % 03/27/2023 10:55 AM [facility] MCV 94.7 80.0 - 100.0 fL 03/27/2023 10:55 AM [facility] MCH 30.9 27.6 - 33.3 pg 03/27/2023 10:55 AM [facility] MCHC 32.7 31.5 - 35.2 g/dL 03/27/2023 10:55 AM [facility] RDW 12.7 11.9 - 15.5 % 03/27/2023 10:55 AM [facility] Platelets 432 150 - 450 x10(9)/L 03/27/2023 10:55 AM [facility] Blood Venipuncture / Unknown 03/27/2023 10:51 AM THEATRE PROFESSOR 03/27/2023 10:51 AM [facility] Isidoro Leach MD LAB_1 [facility] [address] [place] [address], [facility] [phone] documented in this encounter Visit Diagnoses Diagnosis Dilated aortic root (HRC) Aortic ectasia, unspecified site History of atrial fibrillation Personal history of other diseases of circulatory system Essential hypertension (HRC) Unspecified essential hypertension documented in this encounter Additional Health Concerns Infection Onset Date Last Indicated Resolved Time 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
--- OUTSIDE RECORDS SUMMARY | 2023-04-07 09:29 | XMS_ITS | Encounter Summary ---
Author Name Unknown Organization [facility] Address [address] [place] [address] Care Team Providers Care Stagecraft Teacher Name Role Phone Carolynn Alvarado MD Primary Care Provider [phone] Reason for Referral * Procedure/Equipment (Routine) - New Request Specialty Diagnoses / Procedures Referred By Cecille t Referred To Contact Diagnoses Paroxysmal atrial fibrillation (HRC) Curt Wolfe MD [address] [place] [address] Referral ID Status Reason Start Date Expiration Date V isits Requested Visits Authorized [id number] New Request 03/24/2023 06/22/2024 1 1 Scheduling Instructions Your clinician has recommended an appointment with Veda Dudley. You may call [phone] to schedule your appointment. We suggest you call your health insurance company about your coverage and benefits for this appointment. Question Answer Appointment Urgency? Non-Urgent Monitoring timeframe: 8 -15 days Comments Patient to receive monitor: By mail RSONATOR CHARACTER Reason for Visit * Reason Comments Follow-up Atrial Fibrillation Encounter Details Date Type Department Care Team Description 03/24/2023 3:15 PM IMPERSONATOR CHARACTER Office Visit [facility] [address] [facility] [place] [address] Curt Wolfe MD [address] [place] [address] Nurse, Cardiology II [facility] [address] [facility] [address] Paroxysmal atrial fibrillation (HRC) (Primary Dx); Nonrheumatic [...] Comments Blood Pressure 140/78 03/24/2023 3:35 PM IMPERSONATOR CHARACTER Pulse 2 03/24/2023 4:10 PM IMPERSONATOR CHARACTER Temperature - - Respiratory Rate - - Oxygen Saturation - - Inhaled Oxygen Concentration - - Weight 62.1 kg (137 lb) 03/24/2023 2:54 PM IMPERSONATOR CHARACTER Height 162.6 cm (5' 4) 03/24/2023 2:54 PM IMPERSONATOR CHARACTER Body Mass Index 23.52 03/24/2023 2:54 PM IMPERSONATOR CHARACTER documented in this encounter Patient Instructions * Patient Instructions* Curt Wolfe MD - 03/24/2023 3:15 PM IMPERSONATOR CHARACTER Images from the original note were not [...] COVERAGE OF THE ORDERED TESTS. PLEASE CALL [phone] TO GET A PRELIMINARY ASSESSMENT OF THE COST, IF THE INSURANCE DOES NOT COVER THE TEST. ZIOPATCH MONITOR FOLLOW UP: 3-4 MONTHS. EXERCISE: Please try to exercise at moderate intensity at least 30 minutes at least 5 days a week. CONTACT INFORMATION: Please call at [phone] (Ms Aspen Otto RN) if you have any routine question between 8 AM and 5 PM. If you have any urgent question between 5 PM to 8 AM and also over the weekends and holidays, please call at [phone] ([facility] care line) If you have any symptom which needs immediate attention, please go to the urgent care or ER depending on your concern. It is my pleasure taking care of you. Curt Wolfe MD Paint Coating Machine Operator windmill mechanic [facility] heart and vascular [place] [address], [facility] [place] [address] RSONATOR CHARACTER documented in this encounter Progress Notes * [...] She was not anticoagulated. She presented to [facility] on February 23, 2023 with atrial fibrillation. [...] [facility] MEDICAL HISTORY PERTINENT TO CARDIOVASCULAR SYSTEM: Essential [...] EMR. She used to work at the [employer]. 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 FAMILY HISTORY: REVIEWED AND UPDATED IN THE EMR. REVIEW OF SYSTEMS: Per history of present illness. The rest of the complete review of systems were done and was found to be negative apart from aforementioned. PHYSICAL EXAMINATION BP (!) 140/78 Pulse (!) 2 Ht 5' 4 (162.6 cm) Wt 137 lb (37968 g) BMI 23.52 kg/m?? Head, Eyes, ENT: [...] interpreted by me: Normal sinus rhythm. Normal OH interval. Normal axis. Normal QT interval and [...] Apple watch to monitor her pulse. Hypertension Qxqj-tk-xzoinier aortic insufficiency Mild dilatation of the aorta [...] contact me. Thanks again. Curt Wolfe MD Paint Coating Machine Operator Head Bone Grinder [facility] Vascular [place] Patient Instructions Dear Ms. Franz This is my recommendation for you: MEDICATIONS: NO CHANGE Please check your blood pressure. Goal of blood pressure = 130/80 or less. Please watch your salt intake. Daily intake of salt/sodium = 2000 mg RECOMMENDED FURTHER TESTING: I WILL UPDATE YOU THE REPORTS BECOME AVAILABLE. PLEASE DISCUSS WITHYOUR INSURANCE REGARDING COVERAGE OF THE ORDERED TESTS. PLEASE CALL [phone] TO GET A PRELIMINARY ASSESSMENT OF THE COST, IF THE INSURANCE DOES NOT COVER THE TEST. ZIOPATCH MONITOR FOLLOW UP: 3-4 MONTHS. EXERCISE: Please try to exercise at moderate intensity at least 30 minutes at least 5 days a week. CONTACT INFORMATION: Please call at [phone] (Ms Aspen Otto RN) if you have any routine question between 8 AM and 5 PM. If you have any urgent question between 5 PM to 8 AM and also over the weekends and holidays, please call at [phone] ([facility]) If you have any symptom which needs immediate attention, please go to the urgent care or ER depending on your concern. It is my pleasure taking care of you. Curt Wolfe MD Paint Coating Machine Operator windmill mechanic [facility] vascular [place] [address], [facility] [place] [address] Total time: 40 minutes including review of [...] to contact me to address any errors. RSONATOR CHARACTER documented in this encounter Plan of Treatment Upcoming Encounters Date Type Department Care Team Description 04/10/2023 8:30 AM IMPERSONATOR CHARACTER Appointment [place] [address] Family Medicine [address] [place] [phone] [place] [address] [place], [place] [address] 04/15/2023 10:45 AM IMPERSONATOR CHARACTER Appointment [facility] [address] [facility]. [place], [place] [phone] Sin Castorena MD [address] [place] [address] Scheduled Referrals Name Type Priority Associated Diagnoses Orde r Schedule ZIOPATCH Holter Adults/Peds Referral Routine Paroxysmal atrial fibrillation (HRC) Ordered: 03/24/2023 documented as of this encounter Procedures Procedure Name Priority Date/Time Associated Diagnosis Comments ECG 12 LEAD OUTPATIENT Routine 03/24/2023 3:09 PM IMPERSONATOR CHARACTER Paroxysmal atrial fibrillation (HRC) documented in this encounter Results * ECG 12 Lead Outpatient (03/24/2023 3:09 PM IMPERSONATOR CHARACTER) Ventricular Rate 61 BPM MUSE GHP Atrial Rate 61 BPM MUSE GHP P-R Interval 158 ms MUSE GHP QRS Duration 86 ms MUSE GHP QT 452 ms MUSE GHP QTc 455 ms MUSE GHP P [place] 51 degrees MUSE GHP R [place] -8 degrees MUSE GHP T [place] 29 degrees MUSE GHP 03/24/2023 3:09 PM IMPERSONATOR CHARACTER Narrative MUSE GHP - 03/24/2023 3:26 PM IMPERSONATOR CHARACTER Sinus rhythm Normal ECG When compared with [...] ECG ORDERABLES MUSE GHP [address] [place] [address] documented in this encounter Visit Diagnoses Diagnosis [...] documented as of this encounter Care Teams Stagecraft Teacher Relationship Specialty Start [place] [address] [place] [address] PCP - General Internal Medicine 11/09/15 documented as of this encounter
--- OUTSIDE RECORDS SUMMARY | 2023-04-07 09:29 | XMS_ITS | Encounter Summary ---
Author Name Unknown Organization [facility] Address [address] [facility] [place] [address] Care Team Providers Care Medical Technicians Name Role Phone Carolynn Alvarado Primary Care Provider [phone] Morgan Avelar MD Unavailable [phone] Ismael Ordoñez PA-C Unavailable [phone] Ismael Ordoñez PA-C Unavailable [phone] Reason for Visit * Reason Onset Date Comments Procedure 04/23/2016 Epidural Steroid (transforaminal approach): Lumbar right L4-5 Encounter Details Date Type Department Care Team ([facility] st Contact Info) Description 04/23/2016 Telephone [facility] [place] [id number] [place] [address] [address] [place] [address] Pain Management Program, [facility] Procedure (Epidural Steroid (transforaminal approach): Lumbar right [...] be done at which interventional clinic site? [facility] Procedure ordered by Dr. Elaine Antonio Procedure [...] or notify pt of denial. Is an operations asst needed? No Patient has a drive home? [...] ?? If so, was it done at [facility]? No ?? If not, where was it done[facility] Was the MRI done w/in the last 3 years? Yes If MRI was not done at [facility], [facility] or [facility] Imaging do NOT schedule. Route to [...] patient have any questions? NO Rangel Doyle.[facility] OGRAPHIC PROCESS SCREEN MAKER documented in this encounter Plan of Treatment Not on file documented as of this encounter Visit Diagnoses Not on filedocumented in this encounter Care Teams Medical Technicians Relationship Specialty Start Date End Date Hilario Alvaradocrystal Busby PCP - General 05/30/16 [place] [address] [place], [place] [address] Assigned Neuroscience Provider 01/30/20 12/02/20 Ismael Ordoñez PA-C [address] [place] [address] Assigned Surgical Provider 05/31/2003/06 Ismael Ordoñez PA-C [address] [place] [address]110[address] Assigned Neuroscience Provider 12/03/20 documented as of this encounter
--- OUTSIDE RECORDS SUMMARY | 2023-04-07 09:30 | XMS_ITS | Encounter Summary ---
Author Name Unknown Organization [facility] Address [address] [place] [address] Care Team Providers Care Inspector Packer Glass Container Name Role Phone Carolynn Alvarado MD Primary Care Provider [phone] Encounter Details Date Type Department Care Team Description 10/16/2022 10:40 AM CDT Lab Visit [facility] [address] [place] [phone] Osteoporosis with current pathological fracture, unspecified osteoporosis [...] Department Care Team Description 04/10/2023 8:30 AM ENGRAVER OPTICAL FRAMES Appointment [place] [address] Family Medicine [address] [place] [phone] [place] [address] [place] [address] 04/15/2023 10:45 AM ENGRAVER OPTICAL FRAMES Appointment [place] [id number] [facility] [address] [place] [address] Sin Castorena MD [address] [place] [address] documented as of this encounter Procedures Procedure Name Priority Date/Time Associated Diagnosis Comments CALCIUM UR 24 HR Routine 10/16/2022 10:3 7 AM CDT Osteoporosis with current pathological fracture, unspecified osteoporosis type, sequela documented in this encounter Results * Calcium Urine 24 hr (10/16/2022 10:37 AM CDT) Urine Volume 1,300 mL 10/16/2022 3:48 PM CDT [facility] Calcium, Urine, Random 7.8 mg/dL 10/16/2022 3:48 PM CDT [facility] Calcium, Urine, 24 Hours 101 100 - 300 mg/24 hr 10/16/2022 3:48 PM CDT [facility] Creatinine, Urine, Random 62 >20 mg/dL 10/16/2022 3:48 PM CDT [facility] Urine Non-blood Collection / Unknown 10/16/2022 10:37 AM CDT 10/16/2022 10:38 AM CDT Reagan Campbell MD LAB_1 [facility] [address] [place] [address], [facility] [address] [place] [address], [facility] [phone] documented in this encounter Visit Diagnoses Diagnosis Osteoporosis with current pathological fracture, unspecified osteoporosis type, sequela documented in this encounter Additional Health Concerns Infection Onset Date Last Indicated Resolved Time 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
--- OUTSIDE RECORDS SUMMARY | 2023-04-07 09:30 | XMS_ITS | Encounter Summary ---
Author Name Unknown Organization [facility] Address [address], [place] [address] Care Team Providers Care Television Station Manager Name Role Phone Carolynn Alvarado MD Primary Care Provider [phone] Reason for Visit * Reason Comments Injection Encounter Details Date Type Department Care Team Description 02/03/2023 10:30 AM ORACLE EBS DEVELOPER Office Visit [facility] [address] [facility]. [place], [place] [address] Sin Castorena MD [address] [place], [place] [address] Exudative age-related macular degeneration of right eye [...] Sin Castorena MD - 02/03/2023 10:30 AM ORACLE EBS DEVELOPER Control your blood pressure, blood sugar and [...] to keep the eye closed or use [id number] artificial tears for comfort. You may see [...] Eye discharge (other than tears/bloody tears) Call [phone] with any problems. LE EBS DEVELOPER documented in this encounter Progress Notes * [...] KV, COA - acting as scribe for Sni Castorena MD All notes completed by prior [...] the patient and family- Sin Castorena MD LE EBS DEVELOPER documented in this encounter Procedure Notes * Sin Castorena MD - 02/03/2023 10:30 AM CST Intravitreal Injection Operative Report Eye: Right Surgeon: Sin Castorena MD Medicaton: Eylea 0.05 mL (2 mg) Lot number: [id number], Exp 05/14/24 Anesthesia: tetracaine, lidocaine gel 5% [...] of a peripheral shadow in the vision. LE EBS DEVELOPER documented in this encounter Plan of Treatment Upcoming Encounters Date Type Department Care Team Description 04/10/2023 8:30 AM ORACLE EBS DEVELOPER Appointment [address] [place] [address] [place] [address] [place] [address] 04/15/2023 10:45 AM ORACLE EBS DEVELOPER Appointment [place] [address] [place] [address]. 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
--- OUTSIDE RECORDS SUMMARY | 2023-04-07 09:30 | XMS_ITS | Encounter Summary ---
Author Name Unknown Organization [facility] Address [address], [place] [address] Care Team Providers Care Spring Tester Name Role Phone Carolynn Alvarado MD Primary Care Provider [phone] Reason for Referral * Procedure/Equipment (Routine) - Incomplete Specialty Diagnoses / Procedures Referred By Cecille concepcion Referred To Contact Diagnoses Osteoporosis with current pathological fracture, unspecified osteoporosis type, sequela Age-related osteoporosis without current pathological fracture (HRC) Procedures DXA Bone Density [place] [address] [place] [address] Referral ID Status Reason Start Date Expiration Date V isits Requested Visits Authorized [id number] Incomplete 10/08/2023 01/06/2025 1 1 Reason for Visit * Reason Comments OSTEOPOROSIS Encounter Details Date Type Department Care Team Description 10/07/2022 9:00 AM CDT Office Visit [facility] [address] [place], [place] [phone] Reagan Campbell MD [address] [place] [phone] Osteoporosis with current pathological fracture, unspecified osteoporosis [...] for spinal fusion: She is working with [facility] now. Local Neurosurgerydeclined procedure due to high [...] Department Care Team Description 04/10/2023 8:30 AM ALARM SIGNALER Appointment [place] [address] Family Medicine [address] [place] [address] [place] [address] [place], [place] [phone] 04/15/2023 10:45 AM ALARM SIGNALER Appointment [address] [facility] [place], [place] [phone] Sin Castorena MD [address] [place], [place] [phone] Scheduled Orders Name Type Priority Associated Diagnoses Orde r Schedule DXA Bone Density Spine/Hip Imaging New Routine Osteoporosis with current pathological fracture, unspecified osteoporosis type, sequela Age-related osteoporosis without current pathological fracture (HRC) Expected: 10/08/2023 (Approximate), Expires: 04/09/2024 documented as of this encounter Results * Calcium Urine 24 hr (10/16/2022 10:37 AM CDT) Urine Volume 1,300 mL 10/16/2022 3:48 PM CDT [facility] Calcium, Urine, Random 7.8 mg/dL 10/16/2022 3:48 PM CDT [facility] Calcium, Urine, 24 Hours 101 100 - 300 mg/24 hr 10/16/2022 3:48 PM CDT [facility] Creatinine, Urine, Random 62 >20 mg/dL 10/16/2022 3:48 PM CDT [facility] Urine Non-blood Collection / Unknown 10/16/2022 10:37 AM CDT 10/16/2022 10:38 AM CDT Reagan Campbell MD LAB_1 [facility] [address] [place] [address], [facility] [address] [place] [address], [facility] [phone] documented in this encounter Visit Diagnoses Diagnosis Osteoporosis with current pathological fracture, unspecified osteoporosis type, sequela- Primary Age-related osteoporosis without current pathological fracture (HRC) Senile osteoporosis documented in this encounter Additional Health Concerns Infection Onset Date Last Indicated Resolved Time 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 (+) 11/07/2015 11/07/2015 documented as of this encounter Care Teams Spring Tester Relationship Specialty Start [place] [address] [place] [address] PCP - General Internal Medicine 11/09/15 documented as of this encounter
--- OUTSIDE RECORDS SUMMARY | 2023-04-07 09:30 | XMS_ITS | Encounter Summary ---
Author Name Unknown Organization [facility] Address [address] [place] [address] Care Team Providers Care Geography Faculty Member Name Role Phone Carolynn Alvarado MD Primary Care Provider [phone] Reason for Visit * Reason Comments Follow-up Encounter Details Date Type Department Care Team Description 11/29/2022 1:00 PM CDT Office Visit [facility] [address] [facility] [place]. [place], [place] [address] Sin Castorena MD [address] [place], [place] [phone] Exudative age-related macular degeneration of right eye [...] to keep the eye closed or use efgo-sce-qsuynfn artificial tears for comfort. You may see [...] Eye discharge (other than tears/bloody tears) Call [phone] with any problems. documented in this encounter [...] Eylea 0.05 mL (2 mg) Lot number: [id number], Exp 01/15/24 Anesthesia: tetracaine, lidocaine gel 5% [...] Department Care Team Description 04/10/2023 8:30 AM CONCIERGE RECEPTIONIST Appointment [place] [address] [facility] [address] [place] [address] [place] [address] [place] [address] 04/15/2023 10:45 AM CONCIERGE RECEPTIONIST Appointment [facility] [address] [facility]. [place], [place] [address] Sin Castorena MD [address] [place] [address] documented as of this encounter Visit Diagnoses [...] documented as of this encounter Care Teams Geography Faculty Member Relationship Specialty Start [place] [address] [place] [address] PCP - General Internal Medicine 11/09/15 documented as of this encounter
--- OUTSIDE RECORDS SUMMARY | 2023-04-07 09:30 | XMS_ITS | Encounter Summary ---
Author Name Unknown Organization [facility] Address [address], [place] [address] Care Team Providers Care Fios Line Installer Name Role Phone Carolynn Alvarado MD Primary Care Provider Reason for Visit * Reason Comments Spine Lumbar Encounter Details Date Type Department Care Team Description 01/20/2023 11:15 AM SUCCESSFACTORS CONSULTANT Therapy [facility] [address] [address] Rona Mcgrath, PT [address] [place] [address] Chronic bilateral low back pain, [...] Current Home Exercise Program List: Access Code: [email or web address] URL: [email or web address] - Supine Posterior Pelvic Tilt + exhale [...] review of education withtransitions and home chores. ESSFACTORS CONSULTANT documented in this encounter Plan of Treatment Upcoming Encounters Date Type Department Care Team Description 04/10/2023 8:30 AM SUCCESSFACTORS CONSULTANT Appointment [place] [address] Family [address] [place] [phone] [place] [address] [place] [address] 04/15/2023 10:45 AM SUCCESSFACTORS CONSULTANT Appointment [address] 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
--- OUTSIDE RECORDS SUMMARY | 2023-04-07 09:30 | XMS_ITS | Encounter Summary ---
Author Name Unknown Organization [facility] Address [address] [place] [address] Care Team Providers Care Secret Service Agent Name Role Phone Carolynn Alvarado MD Primary Care Provider [phone] Reason for Visit * Reason Comments Refill methocarbamol (ROBAX IN) 500 MG tablet [Pharmacy Med Name: METHOCARBAMOL 500MG TABLETS] Encounter Details Date Type Department Care Team Description 12/23/2022 Refill [facility] [address] [place], [place] [phone] Carolynn Alvarado MD [address] [place] [address] Refill (methocarbamol (ROBAXIN) 500 MG tablet [...] visit: None [employer] Embedded Refills, Reference: [id number], 12/23/2022 6:42:18 PM CDT, Pool: [facility]AYA IMED REFILL ([id number]) CTOR OF CARDIAC CATH LAB documented in this encounter Plan of Treatment Upcoming Encounters Date Type Department Care Team Description 04/10/2023 8:30 AM DIRECTOR OF CARDIAC CATH LAB Appointment [place] [address] Family Medicine [address] [place] [phone] [place] [address] [place] [address] 04/15/2023 10:45 AM DIRECTOR OF CARDIAC CATH LAB Appointment [address] [facility] 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
--- OUTSIDE RECORDS SUMMARY | 2023-04-07 09:30 | XMS_ITS | Encounter Summary ---
Author Name Unknown Organization [facility] Address [address] [place] [address] Care Team Providers Care Security Orderly Name Role Phone Carolynn Alvarado MD Primary Care Provider [phone] Reason for Visit * Reason Comments Eye Problem Encounter Details Date Type Department Care Team Description 12/11/2022 9:00 AM CDT Office Visit [place] [facility] [address] [place] [address] Balwinder Sanchez, PAYogiC [address] [place] [address] Conjunctivitis of left eye, unspecified [...] Department Care Team Description 04/10/2023 8:30 AM SUPERVISOR FURNACE PROCESS Appointment [place] [address] Family Medicine [address] [place] [address] [place] [address] [place] [address] 04/15/2023 10:45 AM SUPERVISOR FURNACE PROCESS Appointment [facility] [address] [facility] 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
--- OUTSIDE RECORDS SUMMARY | 2023-04-07 09:30 | XMS_ITS | Encounter Summary ---
Author Name Unknown Organization [facility] Address [address] [place] [address] Care Team Providers Care Sql Server Bi Developer Name Role Phone Carolynn Alvarado MD Primary Care Provider [phone] Reason for Referral * Consult/Transfer Care (Routine) - New Request Specialty Diagnoses / Procedures Referred By Cecille concepcion Referred To Contact Diagnoses Stress incontinence of urine Margareth Edwards APRN, CNM [address] [place] [address] Referral ID Status Reason Start Date Expiration Date V isits Requested Visits Authorized [id number] New Request 02/17/2023 05/18/2024 1 1 Scheduling Instructions Your clinician has recommended an appointment with [facility]. You can quickly make your appointment online at [employer]/schedule. You can also call [phone] for help scheduling your appointment. We suggest you call your health insurance company about your coverage and benefits for this appointment. Question Answer Appointment Urgency? Non-Urgent Reason for visit? urinary incontinence, cystocele, hx bladder repair in 1979 DRESSER Reason for Visit * Reason Comments CONSULT Encounter Details Date Type Department Care Team Description 02/17/2023 11:15 AM HAIR DRESSER Office Visit [place] [address] Obstetrics/Gynecolog y [address] [place] [address] Margareth Edwards APRN, ANGELA [address] [place] [address] Stress incontinence of urine (Primary [...] Comments Blood Pressure 130/66 02/17/2023 11:24 AM HAIR DRESSER Pulse 68 02/17/2023 11:24 AM HAIR DRESSER Temperature - - Respiratory Rate - - Oxygen Saturation - - Inhaled Oxygen Concentration - - Weight 61.8 kg (136 lb 3.2 oz) 02/17/2023 11:24 AM HAIR DRESSER Height - - Body Mass Index 23.38 10/07/2022 9:06 AM CDT documented in this encounter Progress Notes * Margareth Edwards APRN, ANGELA - 02/17/2023 11:15 AM CST SHOE LAY OUT PLANNER Office Visit Subjective: Michelle Franz is a [...] urethra; atrophy consistent with post- menopausal tissues. [place], moist vaginal and cervical mucosa, without lesions. [...] vaginal dryness. UA. Billing based on: Complexity DRESSER documented in this encounter Plan of Treatment Upcoming Encounters Date Type Department Care Team Description 04/10/2023 8:30 AM HAIR DRESSER Appointment [place] [address] Family Medicine [address] [place] [address] [place] [address] [place] [address] 04/15/2023 10:45 AM HAIR DRESSER Appointment [facility] [address] [facility] [place], [place] [address] Sin Castorena MD 3900 [place] [address] Scheduled Referrals Name Type Priority Associated Diagnoses Orde r Schedule Urogynecology Consult-Adult Referral Routine Stress incontinence of urine Ordered: 02/17/2023 documented as of this encounter Results * (ABNORMAL) Urinalysis Routine, Micro/Culture if Pos: Clean Catch (02/17/2023 11:57 AM HAIR DRESSER) Urine Culture Comment Urinalysis results do not meet criteria for urine culture reflex. 02/17/2023 11:59 AM [facility] Urine Color Yellow 02/17/2023 11:59 AM [facility] Urine Clarity Clear Clear 02/17/2023 11:59 AM [facility] Specific [place], Urine 1.020 1.005 - 1.030 02/17/2023 11:59 AM [facility] PH Urine 5.5 5.0 - 8.0 02/17/2023 11:59 AM [facility] Protein, Urine Qual (mg/dL) Trace Neg/Trace 02/17/2023 11:59 AM [facility] Glucose Urine Qual (mg/dL) Negative Negative 02/17/2023 11:59 AM [facility] Ketones, Urine (mg/dL) Trace(A) Negative 02/17/2023 11:59 AM [facility] Urobilinogen, Urine (EU/dL) 0.2 <2.0 02/17/2023 11:59 AM [facility] Bilirubin Urine Negative Negative 02/17/2023 11:59 AM [facility] Blood, Urine Negative Neg/Trace 02/17/2023 11:59 AM [facility] Nitrite Urine Negative Negative 02/17/2023 11:59 AM [facility] Leukocyte Est. Negative Negative 02/17/2023 11:59 AM [facility] Urine Source Clean Catch 02/17/2023 11:59 AM [facility] Urine URINE SPECIMEN COLLECTION, CLEAN CATCH / Unknown Non-blood Collection / Unknown 02/17/2023 11:57 AM HAIR DRESSER 02/17/2023 11:57 AM HAIR DRESSER Margareth Edwards APRN, CNM LAB_1 [facility] [address] [place] [address] [phone] documented in this encounter Visit Diagnoses Diagnosis Stress incontinence of urine- Primary documented in this encounter Additional Health Concerns Infection Onset Date Last Indicated Resolved Time 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
--- OUTSIDE RECORDS SUMMARY | 2023-04-07 09:30 | XMS_ITS | Encounter Summary ---
Author Name Unknown Organization [facility] Address [address] [address] Care Team Providers Care Medical Front Desk Coordinator Name Role Phone Carolynn Alvarado MD Primary Care Provider [phone] Reason for Visit * Reason Comments NAIL PROBLEM Right great toenail removal Encounter Details Date Type Department Care Team Description 11/05/2022 10:30 AM CDT Office Visit [facility] [address] Podiatric MedSurg [address] [place] [address] Tra Mullins, DPM [address] [place], [place] [address] Onychomycosis (Primary Dx); Great toe pain, unspecified [...] fever >101 degrees. -Podiatry nurse triage line: [phone] -If you're having pain you can take [...] CLINIC PROGRESS NOTE NAME: Michelle Franz CSN: [id number] DATE OF VISIT: 11/05/2022 Chief Complaint Patient presents with NAIL PROBLEM Right great toenail removal SUBJECTIVE: Patient presents to clinic today with a complaint of thickened dystrophic right hallux nail. She would like to have the nail removed. MEDICATIONS: Reviewed today in [facility] ALLERGIES: Reviewed today in [facility] Past medical history, Past surgical history, [...] Department Care Team Description 04/10/2023 8:30 AM FAMILY RESOURCE SPECIALIST Appointment [place] [address] Family Medicine [address] [place] [address] [place] [address] [place] [address] 04/15/2023 10:45 AM FAMILY RESOURCE SPECIALIST Appointment [place] [address] [place] [address] Sin Castorena MD [address]00 [place] [address] documented as of this encounter Visit Diagnoses Diagnosis Onychomycosis- Primary Dermatophytosis of nail Great toe pain, unspecified laterality documented in this encounter Additional Health Concerns Infection Onset Date Last Indicated Resolved Time 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 (+) 11/07/2015 11/07/2015 documented as of this encounter Care Teams Medical Front Desk Coordinator Relationship Specialty Start [place] [address] [place] [address] PCP - General Internal Medicine 11/09/15 documented as of this encounter
--- OUTSIDE RECORDS SUMMARY | 2023-04-07 09:30 | XMS_ITS | Encounter Summary ---
Author Name Unknown Organization [facility] Address [address], [place] [address] Care Team Providers Care Laborer Orchard Name Role Phone Carolynn Alvarado MD Primary Care Provider [phone] Reason for Visit * Reason Comments Eye Exam Encounter Details Date Type Department Care Team Description 2022 8:50 AM CDT Office Visit [place] [address] Ophthalmology [address] [place] [address] Radha Troy, OD 39[address] [place], [place] [address] Examination of eyes and vision (Primary Dx); [...] Department Care Team Description 04/10/2023 8:30 AM SEAMARK ADVANCED OPERATOR MAINTAINER Appointment [place] [address] [facility] [address] [place] [phone] [place] [address] [place] [address] 04/15/2023 10:45 AM SEAMARK ADVANCED OPERATOR MAINTAINER Appointment [facility] [address] [facility] [place], [place] [address] Sin Castorena MD [address] [place] [address] documented as of this encounter Visit Diagnoses [...] documented as of this encounter Care Teams Laborer Orchard Relationship Specialty [place] [address] [place] [address] PCP - General Internal Medicine 11/09/15 documented as of this encounter
--- OUTSIDE RECORDS SUMMARY | 2023-04-07 09:30 | XMS_ITS | Encounter Summary ---
Author Name Unknown Organization [facility] Address [address] [place] [address] Care Team Providers Care Systems Software Specialist Name Role Phone Carolynn Alvarado MD Primary Care Provider [phone] Encounter Details Date Type Department Care Team Description 10/07/2022 9:50 AM CDT Lab Visit [facility] [address] [place], [place] [address] Routine general medical examination at health care [...] Department Care Team Description 04/10/2023 8:30 AM GAME AND FISH PROTECTOR Appointment [place] [address] Family Medicine [address] [place] [address] [place] [address] [place] [address] 04/15/2023 10:45 AM GAME AND FISH PROTECTOR Appointment [address] [facility] [place] [address] Sin Castorena MD 3900 [place] [address] documented as of this encounter Procedures Procedure [...] Container Given Done 10/07/2022 2:00 PM CDT [facility] Other Specimen Type 10/07/2022 12:58 PM CDT 10/07/2022 12:58 PM CDT Reagan Campbell MD LAB_1 [facility] [address] [place] [address], [facility] [phone] documented in this encounter Visit Diagnoses Diagnosis Routine general medical examination at health care facility- Primary Routine general medical examination at a health care facility documented in this encounter Additional Health Concerns Infection Onset Date Last Indicated Resolved Time MRSA Comment:06/24/14 nares (+) 11/07/2015 11/07/2015 documented as of this encounter Care Teams Systems Software Specialist Relationship Specialty Start [place] [address] [place] [address] [address] PCP - General Internal Medicine 11/09/15 documented as of this encounter
--- OUTSIDE RECORDS SUMMARY | 2023-04-07 09:30 | XMS_ITS | Encounter Summary ---
Author Name Unknown Organization [facility] Address [address] [place] [address] Care Team Providers Care Section Beamer Name Role Phone Carolynn Alvarado MD Primary Care Provider Reason for Referral * Procedure/Equipment (Routine) - Incomplete Specialty Diagnoses / Procedures Referred By Cecille concepcion Referred To Contact Procedures [place] [address] [place] [address] Referral ID Status Reason Start Date Expiration Date V isits Requested Visits Authorized [id number] Incomplete 12/20/2022 03/20/2024 1 1 Reason for Visit * Procedure/Equipment (Routine) - Incomplete Specialty Diagnoses / Procedures Referred By Cecille concepcion Referred To Contact Procedures [place] [address] [place] [address] Referral ID Status Reason Start Date Expiration Date V isits Requested Visits Authorized [id number] Incomplete 12/20/2022 03/20/2024 1 1 Encounter Details Date Type Department Care Team Description 12/20/2022 1:20 PM CDT Ancillary Procedure [facility] [address] [place] [address] Social History Tobacco Use Types [...] Department Care Team Description 04/10/2023 8:30 AM INSPECTOR CRYSTAL Appointment [place] [address] Family Medicine [address] [place] [address] [place] [address] [place] [address] 04/15/2023 10:45 AM INSPECTOR CRYSTAL Appointment [address] [place] [address] Sin Castorena MD 3900 [place] [address] documented as of this encounter Procedures Procedure [...] documented as of this encounter Care Teams Section Beamer Relationship Specialty Start [place] [address] [place] [address] PCP - General Internal Medicine 11/09/15 documented as of this encounter
--- OUTSIDE RECORDS SUMMARY | 2023-04-07 09:30 | XMS_ITS | Encounter Summary ---
Author Name Unknown Organization [facility] Address [address], [place] [address] Care Team Providers Care Collection Officer Name Role Phone Carolynn Alvarado MD Primary Care Provider [phone] Encounter Details Date Type Department Care Team Description 01/31/2023 Notes/Orders [facility] [address] [id number] Rona Mcgrath, PT [address] [place] [address] Social History Tobacco Use Types [...] recommended that Michelle return to the physician. ER ARMATURE OR FIELDS documented in this encounter Plan of Treatment Upcoming Encounters Date Type Department Care Team Description 04/10/2023 8:30 AM TESTER ARMATURE OR FIELDS Appointment [place] [address] Family Medicine [address] [place] [phone] [place] [address] [place] [address] 04/15/2023 10:45 AM TESTER ARMATURE OR FIELDS Appointment [address] [place] [address]. [place], [place] [address] Sin Castorena MD 3900 [place], [place] [address] documented as of this encounter Visit Diagnoses Not on filedocumented in this encounter Additional Health Concerns Infection Onset Date Last Indicated Resolved Time MRSA Comment:06/24/14 nares (+) 11/07/2015 11/07/2015 documented as of this encounter Care Teams Collection Officer Relationship Specialty Start [place] [address] [place] [address] [address] PCP - General Internal Medicine 11/09/15 documented as of this encounter
--- OUTSIDE RECORDS SUMMARY | 2023-04-07 09:30 | XMS_ITS | Encounter Summary ---
Author Name Unknown Organization [facility] Address [address] [place] [address] Care Team Providers Care Resident Inspector Name Role Phone Carolynn Alvarado MD Primary Care Provider [phone] Reason for Visit * Reason Comments Follow-up Encounter Details Date Type Department Care Team Description 12/27/2022 10:45 AM CDT Office Visit [facility] [address] [facility] [place], [place] [address] Sin Castorena MD 3900 [place], [place] [address] Exudative age-related macular degeneration of right eye [...] to keep the eye closed or use fjtg-elz-mxiytav artificial tears for comfort. You may see [...] Eye discharge (other than tears/bloody tears) Call [phone] with any problems. documented in this encounter [...] Eylea 0.05 mL (2 mg) Lot number: [id number], Exp 04/15/2024 Anesthesia: tetracaine, lidocaine gel 5% [...] Department Care Team Description 04/10/2023 8:30 AM EMERGENCY ROOM TECH Appointment [place] [address] [address] [place] [address] [place] [address] 04/15/2023 10:45 AM EMERGENCY ROOM TECH Appointment [facility] [address] [place] [address]. [place], [place] [phone] Sin Castorena MD [address] [place], [place] [address] documented as of this encounter Visit Diagnoses [...] documented as of this encounter Care Teams Resident Inspector Relationship Specialty Start [place] [address] [place] [address] PCP - General Internal Medicine 11/09/15 documented as of this encounter
--- OUTSIDE RECORDS SUMMARY | 2023-04-07 09:30 | XMS_ITS | Encounter Summary ---
Author Name Unknown Organization [facility] Address [address], [place] [address] Care Team Providers Care Welder Metal Fab Name Role Phone Carolynn Alvarado MD Primary Care Provider [phone] Reason for Visit * Reason Comments Spine Lumbar Encounter Details Date Type Department Care Team Description 01/31/2023 11:15 AM SHELTER MONITOR Therapy [facility] [address] [address] Rona Mcgrath, PT [address] [place] [address] Chronic bilateral low back pain, [...] Current Home Exercise Program List: Access Code: [email or web address] URL: [email or web address] See above ASSESSMENT/PROGRESS TOWARD GOALS: Pain level [...] measures and no change with her pain. TER MONITOR documented in this encounter Plan of Treatment Upcoming Encounters Date Type Department Care Team Description 04/10/2023 8:30 AM SHELTER MONITOR Appointment [place] [address] Family Medicine [address] [place] [phone] [place] [address] [place] [address] 04/15/2023 10:45 AM SHELTER MONITOR Appointment [facility] [address] [facility] [place] [address] Sin Castorena MD [address] [place], [place] [address] documented as of this encounter Visit Diagnoses Diagnosis Chronic bilateral low back pain, unspecified whether sciatica present- Primary Lumbar radiculopathy, right documented in this encounter Additional Health Concerns Infection Onset Date Last Indicated Resolved Time 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 (+) 11/07/2015 11/07/2015 documented as of this encounter Care Teams Welder Metal Fab Relationship Specialty [place] [address] [place] [address] PCP - General Internal Medicine 11/09/15 documented as of this encounter
--- OUTSIDE RECORDS SUMMARY | 2023-04-07 09:30 | XMS_ITS | Encounter Summary ---
Author Name Unknown Organization [facility] Address [address] [place] [address] Care Team Providers Care Animal Services Officer Name Role Phone Carolynn Alvarado MD Primary Care Provider [phone] Reason for Visit * Reason Comments Injection Encounter Details Date Type Department Care Team Description 11/21/2022 10:30 AM CDT Nursing Visit [facility] [address] [place] [address] Nurse, [facility] Osteoporosis with current pathological fracture, unspecified osteoporosis [...] Department Care Team Description 04/10/2023 8:30 AM RATCHET SETTER Appointment [place] [address] Family Medicine [address] [place] [phone] [place] [address] [place] [address] 04/15/2023 10:45 AM RATCHET SETTER Appointment [facility] [address] [facility] [place], [place] [phone] Sin Castorena MD [address] [place], [place] [id number] documented as of this encounter Visit Diagnoses [...] mg Left Arm Given 05/23/2022 10:15 AM RATCHET SETTER 60 mg L eft Arm documented in this encounter Additional Health Concerns Infection Onset Date Last Indicated Resolved Time MRSA Comment:06/24/14 narbeatriz (+) 11/07/2015 11/07/2015 documented as of this encounter Care Teams Animal Services Officer Relationship Specialty [place] [address] [address] [place] [address] PCP - General Internal Medicine 11/09/15 documented as of this encounter
--- OUTSIDE RECORDS SUMMARY | 2023-04-07 09:30 | XMS_ITS | Encounter Summary ---
Author Name Unknown Organization [facility] Address [address] [place] [address] Care Team Providers Care Sectionizer Name Role Phone Carolynn Alvarado MD Primary Care Provider [phone] Reason for Visit * Reason Comments Spine Lumbar * Therapies (Routine) - New Request Specialty Diagnoses / Procedures Referred By Cecille concepcion Referred To Contact Physical Therapy Diagnoses Low back pain (HRC) Radiculopathy, lumbar region Back Pain Syndrome Radiculopathy Thor/Lumb Neuritis Referred by: Isai Foss [facility] , Clinician, Not Found, [place] [address] [facility] [address] [place] [address] Referral ID Status Reason Start Date Expiration Date V isits Requested Visits Authorized [id number] New Request 01/13/2023 04/13/2024 1 1 Encounter Details Date Type Department Care Team Description 01/14/2023 1:30 PM CDT Therapy [facility] [place] [address] [place] [address] Rona Mcgrath, PT [address] [place] [address] Chronic bilateral low back pain, [...] Mcgrath, PT - 01/14/2023 1:30 PM CDT [facility] Physical Therapy - Lumbar Spine Evaluation/Plan of Care Initial Certification Period: 01/14/2023 to 04/14/23 Referring Provider: Isai Foss MD [facility] [place] FAX [phone] Visit Diagnosis: 1. 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 [place], [place] [address] Sin Castorena MD [address] [place] [address] documented as of this encounter Visit Diagnoses Diagnosis Chronic bilateral low back pain, unspecified whether sciatica present- Primary Lumbar radiculopathy, right documented in this encounter Additional Health Concerns Infection Onset Date Last Indicated Resolved Time MRSA Comment:06/24/14 nares (+) 11/07/2015 11/07/2015 documented as of this encounter Care Teams Sectionizer Relationship Specialty Start [place] [address] [place] [address] PCP - General Internal Medicine 11/09/15 documented as of this encounter
--- OUTSIDE RECORDS SUMMARY | 2023-04-07 09:30 | XMS_ITS | Encounter Summary ---
Author Name Unknown Organization [facility] Address [address] [place] [address] Care Team Providers Care Parachute Officer Name Role Phone Carolynn Alvarado MD Primary Care Provider [phone] Reason for Visit * Reason Comments Follow-up Encounter Details Date Type Department Care Team Description 11/01/2022 11:00 AM CDT Office Visit [facility] [address] [facility]. [place], [place] [address] Sin Castorena MD [address] [place], [place] [phone] Exudative age-related macular degeneration of right eye [...] to keep the eye closed or use lkcn-goe-[id number] artificial tears for comfort. You may see [...] Eye discharge (other than tears/bloody tears) Call [phone] with any problems. documented in this encounter [...] Eylea 0.05 mL (2 mg) Lot number: [id number], Exp 07/15/23 Anesthesia: tetracaine, lidocaine gel 5% [...] Department Care Team Description 04/10/2023 8:30 AM BALL WINDER Appointment [place] [address] [place] [address] [place] [address] [place] [address] [place] [address] 04/15/2023 10:45 AM BALL WINDER Appointment [facility] [address] [facility]. [place], [place] [phone] Sin Castorena MD [address] [place] [address] documented as of this encounter Visit Diagnoses [...] documented as of this encounter Care Teams Parachute Officer Relationship Specialty [place] [address] [place] [address] PCP - General Internal Medicine 11/09/15 documented as of this encounter
--- OUTSIDE RECORDS SUMMARY | 2023-04-07 09:31 | XMS_ITS | Encounter Summary ---
Author Name Unknown Organization [facility] Address [address] [place] [address] Care Team Providers Care Public Relations Account Supervisor Name Role Phone Carolynn Alvarado MD Primary Care Provider [phone] Reason for Visit * Reason Comments Follow-up Encounter Details Date Type Department Care Team Description 08/19/2022 10:40 AM CDT Office Visit [place] [address] [facility] [address] [facility] [place], [place] [address] [place] [address] [place] [phone] Lumbar radiculopathy (Primary Dx); H/O Spinal surgery; [...] symptoms. She has been mostly followed through [facility]. She has follow-up with Neurosurgery scheduled this week. She underwent an epidural steroid injection through [facility] which was completed two the right L1-2 [...] patient has previously had her care at [facility]. She was seen by Neurosurgery and [...] during the summer. Past Medical History: Reviewed. KENNEL STAFF MEMBER reviewed 08/19/2022 IMAGING: MR lumbar spine with and without IV contrast November 23, 2017 FINDINGS: Sagittal: Five lumbar-type vertebral bodies. The conus medullaris terminates at the level of the [id number] body. Normal cord signal. Progression of type [...] Injections: Recently underwent right L1-2 TFESI at [facility]. Concern that some of her symptoms are in fact related to the L3 nerve on the right. 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 Hold on any injections as she recently underwent TOM 10 days ago. Follow-up: 6 weeks Billing based on: Time >40 minutes total time spent reviewing the patient's records, labs, imaging and KENNEL STAFF MEMBER. Time was spent with the patient obtaining [...] Department Care Team Description 04/10/2023 8:30 AM MEDICAL EQUIPMENT TECHNICIAN Appointment [place] [address] Family Medicine [address] [place] [address] [place] [address] [place] [address] 04/15/2023 10:45 AM MEDICAL EQUIPMENT TECHNICIAN Appointment [address] [facility]. [place], [place] [address] Sin Castorena MD 3900 [place] [address] documented as of this encounter Visit Diagnoses Diagnosis Lumbar radiculopathy- Primary Thoracic or lumbosacral neuritis or radiculitis, unspecified H/O Spinal surgery Other postprocedural status Low bone mass Disorder of bone and cartilage, unspecified documented in this encounter Additional Health Concerns Infection Onset Date Last Indicated Resolved Time MRSA Comment:06/24/14 narbeatriz (+) 11/07/2015 11/07/2015 documented as of this encounter Care Teams Public Relations Account Supervisor Relationship Specialty [place] [address] [place] [address] PCP - General Internal Medicine 11/09/15 documented as of this encounter
--- OUTSIDE RECORDS SUMMARY | 2023-04-07 09:31 | XMS_ITS | Encounter Summary ---
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 [place] [address] Sin Castorena MD [address] [place] [address] Exudative age-related macular degeneration of [...] Medicaton: Avastin 0.05 mL (1.25mg) Lot number: [id number], Exp 11/08/2022 Anesthesia: tetracaine, akten 5% povidone [...] Department Care Team Description 04/10/2023 8:30 AM SUPPLY ANALYST Appointment [address] Medicine [address] [place] [address] [place] [address] [place] [address] 04/15/2023 10:45 AM SUPPLY ANALYST Appointment [place] [address] [place] [address]. 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
--- OUTSIDE RECORDS SUMMARY | 2023-04-07 09:31 | XMS_ITS | Encounter Summary ---
Author Name Unknown Organization [facility] Address [address], [place] [address] Care Team Providers Care Industrial Energy Engineer Name Role Phone Carolynn Alvarado MD Primary Care Provider [phone] Reason for Visit * Reason Comments NAIL PROBLEM Right great toenail fungus Encounter Details Date Type Department Care Team Description 08/13/2022 9:30 AM CDT Office Visit [facility] [address] [facility] [address] [place] [address] Tra Mullins, DPM [address] [place], [place] [address] Onychomycosis (Primary Dx) Social History Tobacco Use [...] MED AND SURGERY CLINIC PROGRESS NOTE NAME: Micehlle Franz CSN: [id number] DATE OF VISIT: 08/13/2022 Chief Complaint Patient [...] toenail removed previously MEDICATIONS: Reviewed today in [facility] ALLERGIES: Reviewed today in [facility] Past medical history, Past surgical history, [...] Department Care Team Description 04/10/2023 8:30 AM INTERNAL MEDICINE DOCTOR Appointment [place] [address] Family Medicine [address] [place] [phone] [place] [address] [place] [address] 04/15/2023 10:45 AM INTERNAL MEDICINE DOCTOR Appointment [facility] [address] [facility] 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
--- OUTSIDE RECORDS SUMMARY | 2023-04-07 09:31 | XMS_ITS | Encounter Summary ---
Author Name Unknown Organization [facility] Address [address], [place] [address] Care Team Providers Care Hair Spring Winder Name Role Phone Carolynn Alvarado MD Primary Care Provider [phone] Reason for Visit * Reason Comments Refill fluticasone propiona te (FLONASE) 50 MCG/ACT nasal solution [Pharmacy Med Name: FLUTICASONE 50MCG NASAL SP (120) RX] Encounter Details Date Type Department Care Team Description 06/13/2022 Refill [facility] [address] [place] [address] [place] [address] [place] [address] Refill (fluticasone propionate (FLONASE) 50 [...] (with CAROLYNN ALVARADO) Next scheduled visit: None [facility] [employer] Embedded Refills, Reference: [id number], 06/13/2022 11:45:42 AM CDT, Pool: RAYA GANNON REFILL ([id number]) documented in this encounter Plan of Treatment Upcoming Encounters Date Type Department Care Team Description 04/10/2023 8:30 AM DIRECT MARKETING SPECIALIST Appointment [place] [address] Family Medicine [address] [place] [phone] [place] [address] [place] [address] 04/15/2023 10:45 AM DIRECT MARKETING SPECIALIST Appointment [address] [facility] 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
--- OUTSIDE RECORDS SUMMARY | 2023-04-07 09:31 | XMS_ITS | Encounter Summary ---
Author Name Unknown Organization [facility] Address [address] [place] [address] Care Team Providers Care Mechanical Assembly Technician Name Role Phone Carolynn Alvarado MD Primary Care Provider [phone] Reason for Visit * Reason Comments Injection * Procedure/Equipment (Routine) - Authorized Specialty Diagnoses / Procedures Referred By Cecille concepcion Referred To Contact Diagnoses Osteoporosis with current pathological fracture, unspecified osteoporosis type, sequela Reagan Campbell MD [address] [place] [address] Referral ID Status Reason Start Date Expiration Date V isits Requested Visits Authorized [id number] Authorized 04/16/2022 07/16/2023 2 2 Encounter Details Date Type Department Care Team Description 05/23/2022 10:00 AM WORT EXTRACTOR Nursing Visit [facility] [address] [place] [address] Nurse [facility] Osteoporosis with current pathological fracture, unspecified [...] injection and informed to call with symptoms. EXTRACTOR documented in this encounter Plan of Treatment Upcoming Encounters Date Type Department Care Team Description 04/10/2023 8:30 AM WORT EXTRACTOR Appointment [place] [address] Family Medicine [address] [place] [address] [place] [address] [place] [address] 04/15/2023 10:45 AM WORT EXTRACTOR Appointment [address] [facility] [place], [place] [address] Sin Castorena MD [address] [place] [address] Scheduled Referrals Name Type Priority Associated Diagnoses [...] mg Left Arm Given 05/23/2022 10:15 AM WORT EXTRACTOR 60 mg L eft Arm documented in this encounter Additional Health Concerns Infection Onset Date Last Indicated Resolved Time 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 (+) 11/07/2015 11/07/2015 documented as of this encounter Care Teams Mechanical Assembly Technician Relationship Specialty Start [place] [address] [place] [address] PCP - General Internal Medicine 11/09/15 documented as of this encounter
--- OUTSIDE RECORDS SUMMARY | 2023-04-07 09:31 | XMS_ITS | Encounter Summary ---
Author Name Unknown Organization [facility] Address [address], [place] [address] Care Team Providers Care Biomass Boiler Operator Name Role Phone Carolynn Alvarado MD Primary Care Provider [phone] Reason for Visit * Reason Comments Follow-up Medicare Annual Wellness Sinus Problem Encounter Details Date Type Department Care Team Description 06/13/2022 10:30 AM CDT Office Visit [facility] [address] [place] [address] [place]ynn [place] [id number] [place] [address] Encounter for Medicare annual wellness exam [...] good repair and are slip-resistant. ?? 2001 PEPperPRINT. P/SENIORS /#[id number] [facility] - [facility] Family [facility] [address] [address] [facility] [address] [address] [facility] [[email or web address]]: [facility] [address] [place] [address] [facility] [address] [address] Phone: [phone] [facility] 7th Floor, [address] [place] [address] [facility] [address] [place] [address] [facility] - [facility] ([facility]) [address] [place] [address] [facility] [address] [place] [address] [facility] [address] [place] [address] [facility] 24[address] [place] [address] [facility] 7th Floor, [address] [place] [address] Learning About Eating More Fruits and Vegetables [...] can you learn more? 1. Go to https://www.OkCopay/healthlibrary. 2. Enter F050 in the search box. Current as of: July 23, 2021 Content Version: 13.4 ?? Noemalife. Care instructions adapted under license by your healthcare professional. If you have questions about a medical condition or this instruction, always ask your healthcare professional. Noemalife disclaims any warranty or liability for your [...] good repair and are slip-resistant. ?? 2002 PEPperPRINT. CHP/SENIORS /#[id number] [facility] - [facility] [address] [address] [facility] [address] [address] [facility] [[email or web address]]: [facility] [address] [place] [address] [facility] [address] [address] Phone: [phone] [facility] 7th Floor, [address] [place] [address] [facility] [address] [place] [address] [facility] - [facility] ([facility]) [address] [place] [address] [facility] [address] [address] [facility] [address] [place] [address] [facility] [address] [place] [address] [facility] 7th Floor, [address] [place] [address] Learning About Eating More Fruits and Vegetables [...] can you learn more? 1. Go to https://www.stickapps.TuckerNuck/beModelraSDI. 2. Enter F050 in the search box. Current as of: July 23, 2021 Content Version: 13.4 ?? Noemalife. Care instructions adapted under license by your healthcare professional. If you have questions about a medical condition or this instruction, always ask your healthcare professional. Noemalife disclaims any warranty or liability for your use of this information. Michelle was seen today for follow-up, medicare annual wellness and sinus problem. Diagnoses and all orders for this visit: Encounter for Medicare annual wellness exam Mixed hyperlipidemia (HRC) - Lipid Panel and Direct LDL(If Needed); Future - AST; Future - ALT (SGPT); Future Essential hypertension (HRC) Vitamin D deficiency ([facility]) - Vitamin D 25-Hydroxy, Total; Future [...] needs a fusion but Dr Gallagher at [facility] has caution due to osteoporosis. TC reports [...] has symptoms if misses dose. Reviewed at [facility] exam 04/20/06/13/20222020 Menstrual periods: Post menopausal - [id number] d/c'd HRT Calcium/vit D: Recommended daily DEXA: [...] Social and Family History: Reviewed, please see [facility] for details Medications: Outpatient Medications Prior [...] (PROLIA) injection 60 mg 60 mg Subcutaneous [id number] Reagan Campbell MD 60 mg at 05/23/22 [...] Department Care Team Description 04/10/2023 8:30 AM DONKEY ENGINE FIRER/FIREMAN Appointment [facility] [address] Family Medicine [address] [place] [address] [place] [address] [place] [address] 04/15/2023 10:45 AM DONKEY ENGINE FIRER/FIREMAN Appointment [facility] [address] [facility] [place], [place] [id number] Sin Castorena MD [address] [place] [id number] documented as of this encounter Results * ALT (SGPT) (06/26/2022 8:49 AM CDT) ALT (SGPT) 11 <=55 U/L 06/26/2022 10:01 AM CDT [facility] Blood Venipuncture / Unknown 06/26/2022 8:49 AM CDT 06/26/2022 8:49 AM CDT Carolynn Alvarado MD LAB_1 Performing Organization Address [facility]/ZIP Co de Phone Number [facility] [address] [place] [address], [facility] [phone] * AST (06/26/2022 8:49 AM CDT) Pathologist [facility] AST (SGOT) 16 10 - 40 U/L 06/26/2022 10:01 AM CDT [facility] Blood Venipuncture / Unknown 06/26/2022 8:49 AM CDT 06/26/2022 8:49 AM CDT Carolynn Alvarado MD LAB_1 Performing Organization Address [facility]/ZIP Co de Phone Number [facility] [address] [place] [address], [facility] [phone] * TSH (06/26/2022 8:49 AM CDT) TSH, Sensitive 1.32 0.30 - 4.50 uIU/mL 06/26/2022 3:29 PM CDT [facility] Blood Venipuncture / Unknown 06/26/2022 8:49 AM CDT 06/26/2022 8:49 AM CDT Carolynn Alvarado MD LAB_1 [facility] [address] * Complete Blood Count-No Diff (06/26/2022 8:49 AM CDT) WBC 8.2 3.5 - 10.5 x10(9)/L 06/26/2022 8:52 AM CDT [facility] RBC 4.24 3.90 - 5.03 x10(12)/L 06/26/2022 8:52 AM CDT [facility] Hemoglobin 13.2 12.0 - 15.5 g/dL 06/26/2022 8:52 AM CDT [facility] HCT 39.5 34.9 - 44.5 % 06/26/2022 8:52 AM CDT [facility] MCV 93.2 80.0 - 100.0 fL 06/26/2022 8:52 AM CDT [facility] MCH 31.1 27.6 - 33.3 pg 06/26/2022 8:52 AM CDT [facility] MCHC 33.4 31.5 - 35.2 g/dL 06/26/2022 8:52 AM CDT [facility] RDW 12.3 11.9 - 15.5 % 06/26/2022 8:52 AM CDT [facility] Platelets 440 150 - 450 x10(9)/L 06/26/2022 8:52 AM CDT [facility] Blood Venipuncture / Unknown 06/26/2022 8:49 AM CDT 06/26/2022 8:49 AM CDT Carolynn Alvarado MD LAB_1 Performing Organization Address City/State/[facility] Co de Phone Number [facility] [address] [place] [address] [phone] * Vitamin D 25-Hydroxy, Total (06/26/2022 8:49 AM CDT) Pathologist [facility] Vitamin D, 25-OH, Total 36 30 - 80 ng/mL 06/26/2022 3:32 PM CDT [facility] Blood Venipuncture / Unknown 06/26/2022 8:49 AM CDT 06/26/2022 8:49 AM CDT Carolynn Alvarado MD LAB_1 [facility] [address] [place], [place] [address] * (ABNORMAL) Lipid Panel and Direct LDL(If Needed) (06/26/2022 8:49 AM CDT) Cholesterol 188 0 - 199 mg/dL 06/26/2022 10:01 AM T [facility] Triglyceride 264(H) <=149 mg/dL 06/26/2022 10:01 AM T [facility] HDL Cholesterol 47 >=40 mg/dL 3 10:01 AM T [facility] LDL, Calculated 88 <130 mg/dL 3 10:01 AM [facility] Non HDL Chol, Calculated 141 <=159 mg/dL 06/26/2022 10:01 AM [facility] Cholesterol/HDL Ratio 4.0 06/26/2022 10:01 AM T [facility] Hours Fasting 12 06/26/2022 10:01 AM T [facility] Blood Venipuncture / Unknown 06/26/2022 8:49 AM CDT 06/26/2022 8:49 AM CDT Carolynn Alvarado MD LAB_1 Performing Organization Address City/[facility]/ZIP Co de Phone Number [facility] [address] [place] [address], [facility] [phone] [facility] [address] [place] [address], [facility] [phone] documented in this encounter Visit Diagnoses Diagnosis [...] documented as of this encounter Care Teams Biomass Boiler Operator Relationship Specialty Start [place] [address] [address] [place] [address] PCP - General Internal Medicine 11/09/15 documented as of this encounter
--- OUTSIDE RECORDS SUMMARY | 2023-04-07 09:31 | XMS_ITS | Encounter Summary ---
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) Procedures Echocardiogram Yessy Martinez PA-C [address] [place] [address] Referral ID Status Reason Start Date Expiration Date V isits Requested Visits Authorized [id number] New Request 03/17/2023 06/15/2024 1 1 Reason for Visit * Reason Comments Follow-up Encounter Details Date Type Department Care Team Description 05/30/2022 1:45 PM CDT Office Visit [facility] [address] Cardiology [address] [place] [address] Yessy Martinez PA-C [address] [place] [address] Nurse, Cardiology II Bv Nonrheumatic [...] nurse, ANGELES Blevins, can be reached at [phone] Yessy Martinez PA-C Cardiology documented in this [...] 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 PAST MEDICAL HISTORY: Reviewed in [facility]. CURRENT MEDICATIONS: Reviewed in [facility]. Current cardiac medications: Amlodipine 10 mg daily Atenolol 25 mg daily ALLERGIES: Reviewed in [facility] PHYSICAL EXAM: BP 135/68 (BP Location: Left Arm, BP Cuff Size: Regular) Pulse 66 Ht 5' 5 (165.1 cm) Wt 133 lb (31797 g) BMI 22.13 kg/m?? GENERAL: The patient [...] 1. Lone atrial fibrillation, symptomatic. Seen at [place] [facility] in Apr 2021 for palpitations and [...] on exam today. -Not currently on anticoagulation. [id number] score of 3 (F, age, HTN). If [...] for any concerning symptoms. Yessy Martinez PA-C [facility] documented in this encounter Plan of Treatment Upcoming Encounters Date Type Department Care Team Description 04/10/2023 8:30 AM BALLISTICIAN Appointment [place] [address] Family Medicine [address] [place] [address] [place] [address] [place] [address] 04/15/2023 10:45 AM BALLISTICIAN Appointment [facility] [address] [place] [address] [address] [facility] [place], [place] [address] Sin Castorena MD [address] [place], [place] [address] documented as of this encounter Visit Diagnoses Diagnosis Nonrheumatic aortic valve insufficiency (HRC)- Primary Aortic valve disorders Dilation of aorta (HRC) Lone atrial fibrillation (HRC) Atrial fibrillation Essential hypertension (HRC) Unspecified essential hypertension documented in this encounter Additional Health Concerns Infection Onset Date Last Indicated Resolved Time 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 (+) 11/07/2015 11/07/2015 documented as of this encounter Care Teams Wind Turbine Installer Relationship Specialty Start [place] [address] [address] [place] [address] PCP - General Internal Medicine 11/09/15 documented as of this encounter
--- OUTSIDE RECORDS SUMMARY | 2023-04-07 09:31 | XMS_ITS | Encounter Summary ---
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 [address] [place] [address]. [place] [address] Sin Castorena MD [address] [place] [address] Exudative age-related macular degeneration of [...] to keep the eye closed or use myqh-qgo-ddlmvzg artificial tears for comfort. You may see [...] Eye discharge (other than tears/bloody tears) Call [phone] with any problems. documented in this encounter [...] documented in this encounter Procedure Notes * [place] City[place]aura agrawal - 06/28/2022 10:45 AM CDT Intravitreal Injection Operative Report Eye: Right Surgeon: Sin Castorena MD Medicaton: Avastin 0.05 mL (1.25mg) Lot number: [id number], Exp 09/28/2022 Anesthesia: tetracaine, akten 5% povidone [...] Care Team Description 04/10/2023 8:30 AM ORACLE ADF DEVELOPER Appointment [place] [address] Family Medicine [address] [place] [address] [place] [address] [place] [address] 04/15/2023 10:45 AM ORACLE ADF DEVELOPER Appointment [facility] [address] [facility] [place], [place] [phone] Sin Castorena MD [address] [place], [place] [address] documented as of this encounter Visit Diagnoses [...] documented as of this encounter Care Teams Warp Knitting Machine Operator Relationship Specialty Start [place] [address] [address] [place] [address] PCP - General Internal Medicine 11/09/15 documented as of this encounter
--- OUTSIDE RECORDS SUMMARY | 2023-04-07 09:31 | XMS_ITS | Encounter Summary ---
Author Name Unknown Organization [facility] Address [address] [place] [address] Care Team Providers Care Restorative Care Technician Name Role Phone Carolynn Alvarado MD Primary Care Provider [phone] Encounter Details Date Type Department Care Team Description 06/26/2022 8:50 AM CDT Lab Visit [facility] [address] [place] [address] Mixed hyperlipidemia (HRC); Vitamin D deficiency (HRC); [...] Department Care Team Description 04/10/2023 8:30 AM WARP KNIT OPERATOR Appointment [facility] [address] Family Medicine [address] [place] [address] [place] [address] [place] [address] 04/15/2023 10:45 AM WARP KNIT OPERATOR Appointment [facility] [address] [place] [address] Sin Castorena MD [address] [place], [place] [address] documented as of this encounter Procedures Procedure [...] 11 <=55 U/L 06/26/2022 10:01 AM CDT [facility] Blood Venipuncture / Unknown 06/26/2022 8:49 AM CDT 06/26/2022 8:49 AM CDT Carolynn Alvarado MD LAB_1 [facility] [address] [place] [address], [facility] [phone] * AST (06/26/2022 8:49 AM CDT) AST (SGOT) 16 10 - 40 U/L 06/26/2022 10:01 AM CDT [facility] Blood Venipuncture / Unknown 06/26/2022 8:49 AM CDT 06/26/2022 8:49 AM CDT Carolynn Alvarado MD LAB_1 Performing Organization Address City/[facility]/ZIP Co de Phone Number [facility] [address] [place] [address] [phone] * TSH (06/26/2022 8:49 AM CDT) Pathologist [facility] TSH, Sensitive 1.32 0.30 - 4.50 uIU/mL 06/26/2022 3:29 PM CDT [facility] Blood Venipuncture / Unknown 06/26/2022 8:49 AM CDT 06/26/2022 8:49 AM CDT Carolynn Alvarado MD LAB_1 Performing Organization Address City/[facility]/ZIP Co de Phone Number [facility] [address] * Complete Blood Count-No Diff (06/26/2022 8:49 AM CDT) [facility] WBC 8.2 3.5 - 10.5 x10(9)/L 06/26/2022 8:52 AM CDT [facility] RBC 4.24 3.90 - 5.03 x10(12)/L 06/26/2022 8:52 AM CDT [facility] Hemoglobin 13.2 12.0 - 15.5 g/dL 06/26/2022 8:52 AM T [facility] HCT 39.5 34.9 - 44.5 % 06/26/2022 8:52 AM CDT [facility] MCV 93.2 80.0 - 100.0 fL 06/26/2022 8:52 AM CDT [facility] MCH 31.1 27.6 - 33.3 pg 06/26/2022 8:52 AM CDT [facility] MCHC 33.4 31.5 - 35.2 g/dL 06/26/2022 8:52 AM T [facility] RDW 12.3 11.9 - 15.5 % 06/26/2022 8:52 AM T [facility] Platelets 440 150 - 450 x10(9)/L 06/26/2022 8:52 AM CDT [facility] Blood Venipuncture / Unknown 06/26/2022 8:49 AM CDT 06/26/2022 8:49 AM CDT Carolynn Alvarado MD LAB_1 Performing Organization Address City/[facility]/ZIP Co de Phone Number [facility] [address] [place] [address], [facility] [phone] * Vitamin D 25-Hydroxy, Total (06/26/2022 8:49 AM CDT) Vitamin D, 25-OH, Total 36 30 - 80 ng/mL 06/26/2022 3:32 PM CDT [facility] Blood Venipuncture / Unknown 06/26/2022 8:49 AM CDT 06/26/2022 8:49 AM CDT Carolynn Alvarado MD LAB_1 Performing Organization Address [facility] Co de Phone Number [facility] [address] * (ABNORMAL) Lipid Panel and Direct LDL(If Needed) (06/26/2022 8:49 AM CDT) Cholesterol 188 0 - 199 mg/dL 06/26/2022 10:01 AM [facility] Triglyceride 264(H) <=149 mg/dL 06/26/2022 10:01 AM [facility] HDL Cholesterol 47 >=40 mg/dL 10:01 AM [facility] LDL, Calculated 88 <130 mg/dL 10:01 AM [facility] Non HDL Chol, Calculated 141 <=159 mg/dL 06/26/2022 10:01 AM [facility] Cholesterol/HDL Ratio 4.0 06/26/2022 10:01 AM [facility] Hours Fasting 12 06/26/2022 10:01 AM CDT [facility] Blood Venipuncture / Unknown 06/26/2022 8:49 AM CDT 06/26/2022 8:49 AM CDT Carolynn Alvarado MD LAB_1 [facility] [address] [place] [address], [facility] [phone] [facility] [address] [place] [address], [facility] [phone] documented in this encounter Visit Diagnoses Diagnosis Mixed hyperlipidemia (HRC) Mixed hyperlipidemia Vitamin D deficiency (HRC) Unspecified vitamin D deficiency Acute non-recurrent maxillary sinusitis Screening for thyroid disorder documented in this encounter Additional Health Concerns Infection Onset Date Last Indicated Resolved Time 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
--- OUTSIDE RECORDS SUMMARY | 2023-04-07 09:31 | XMS_ITS | Encounter Summary ---
Author Name Unknown Organization [facility] Address [address] [place] [address] Care Team Providers Care Finished Cloth Checker Name Role Phone Carolynn Alvarado MD Primary Care Provider [phone] Encounter Details Date Type Department Care Team Description 07/08/2022 9:30 PM CDT Lab Visit [facility] [address], [place] [address] Screening for colon cancer Social History Tobacco [...] Department Care Team Description 04/10/2023 8:30 AM PRENATAL NURSE Appointment [place] [address] Family Medicine [address] [place] [address] [place] [address] [place] [address] 04/15/2023 10:45 AM PRENATAL NURSE Appointment [facility] [address] [place] [address] Sin Castorena MD [address] [place] [address] documented as of this encounter Procedures Procedure Name Priority Date/Time Associated Diagnosis Comments FIT COLON RECTAL CANCER SCREENING Routine 07/08/2022 8:00 AM CDT Screening for colon cancer documented in this encounter Results * FIT Colon Rectal Cancer Screening (07/08/2022 8:00 AM CDT) FIT Specimen 1 Negative Negative 07/09/2022 9:41 AM CDT [facility] Stool 07/08/2022 8:00 AM CDT 07/08/2022 6:44 PM CDT Carolynn Alvarado MD LAB_1 Performing Organization Address City/State/[facility] Co de Phone Number [facility] [address] [phone] documented in this encounter Visit Diagnoses Diagnosis Screening for colon cancer Special screening for malignant neoplasms, colon documented in this encounter Additional Health Concerns Infection Onset Date Last Indicated Resolved Time 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
--- OUTSIDE RECORDS SUMMARY | 2023-04-07 09:31 | XMS_ITS | Encounter Summary ---
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 [place] [address] Sin Castorena MD [address] [place] [address] Exudative age-related macular degeneration of [...] to keep the eye closed or use euoz-coq-xzheceg artificial tears for comfort. You may see [...] Eye discharge (other than tears/bloody tears) Call [phone] with any problems. documented in this encounter [...] Medicaton: Avastin 0.05 mL (1.25mg) Lot number: [id number], Exp 08/17/22 Anesthesia: tetracaine, akten 5% povidone [...] Department Care Team Description 04/10/2023 8:30 AM CART DRIVER Appointment [facility] [address] Family Medicine [address] [place] [address] [place] [address] [place] [address] 04/15/2023 10:45 AM CART DRIVER Appointment [facility] [address] [facility] [place], [place] [address] Sin Castorena MD [address] [place], [place] [address] documented as of this encounter Visit Diagnoses [...] documented as of this encounter Care Teams Computer Numerical Control Programmer Relationship Specialty Start [place] [address] [address] [address] [place] [address] PCP - General Internal Medicine 11/09/15 documented as of this encounter
--- OUTSIDE RECORDS SUMMARY | 2023-04-07 09:31 | XMS_ITS | Encounter Summary ---
Author Name Unknown Organization [facility] Address [address] [place] [address] Care Team Providers Care Athletic Turf Worker Name Role Phone Carolynn Alvarado MD Primary Care Provider [phone] Reason for Visit * Procedure/Equipment (Routine) - Incomplete Specialty Diagnoses / Procedures Referred By Eladioac t Referred To Contact Diagnoses Radiculopathy of lumbar region Procedures MR Lumbar Spine WO IV Cont Carey Rashid, DO [address] [place] [address] Referral ID Status Reason Start Date Expiration Date V isits Requested Visits Authorized [id number] Incomplete 07/01/2022 09/30/2023 1 1 Encounter Details Date Type Department Care Team Description 07/03/2022 11:00 AM CDT Ancillary Procedure [facility] [address] Radiology MRI [address] [place] [address] Carey Rashid DO [address] [place], [place] [id number] Radiculopathy of lumbar region Social History Tobacco [...] Department Care Team Description 04/10/2023 8:30 AM RECYCLABLE PRODUCTS SORTER Appointment [place] [address] Family Medicine [address] [place] [address] [place] [address] [place], [place] [id number] 04/15/2023 10:45 AM RECYCLABLE PRODUCTS SORTER Appointment [facility] [address] [facility] [address] Sin Castorena MD [address] [place], [place] [phone] documented as of this encounter Procedures Procedure [...] Bilateral facet hypertrophy. Mild canal stenosis. Similar ebumgitu-wo-uknpml left and moderate right foraminal stenosis. L4-5: [...] bulge. Bilateral facet hypertrophy. Mildcanal stenosis. Similar znbusbdb-tx-jfgqyd left and moderate rightforaminal stenosis. L4-5: Disc [...] documented as of this encounter Care Teams Athletic Turf Worker Relationship Specialty [place] [address] [address] [place] [address] PCP - General Internal Medicine 11/09/15 documented as of this encounter
--- OUTSIDE RECORDS SUMMARY | 2023-04-07 09:31 | XMS_ITS | Encounter Summary ---
Author Name Unknown Organization [facility] Address [address] [place] [address] Care Team Providers Care Operations Superintendent Name Role Phone Carolynn Alvarado MD Primary Care Provider Reason for Referral * Procedure/Equipment (Routine) - Incomplete Specialty Diagnoses / Procedures Referred By Contac t Referred To Contact Diagnoses Radiculopathy of lumbar region Procedures MR Lumbar Spine WO IV Carey Wheat DO [address] [place] [address] Referral ID Status Reason Start Date Expiration Date V isits Requested Visits Authorized [id number] Incomplete 07/01/2022 09/30/2023 1 1 Reason for Visit * Reason Comments Follow-up * Consult/Transfer Care (Routine) - New Request Specialty Diagnoses / Procedures Referred By Contselvin t Referred To Contact Pain Management Diagnoses Back pain, unspecified back location, unspecified back pain laterality, unspecified chronicity Jolene Levin, DO [address] [facility] [address] p3800 [facility] [address] [place] [address]. [place] [address] Referral ID Status Reason Start Date Expiration Date V isits Requested Visits Authorized [id number] New Request 05/14/2022 08/13/2023 1 1 Encounter Details Date Type Department Care Team Description 07/01/2022 11:20 AM CDT Office Visit [facility] [address] [facility] [address] [facility] [place] [address] Carey Rashid DO [address] [place] [address] Chronic right-sided low back pain with right-sided [...] Note Referred by: Jolene Levin, DO [address] [facility] [place] [address] Chief Complaint: Chief Complaint Patient presents with [...] patient has previously had her care at [facility]. She was seen by Neurosurgery and [...] medullaris terminates at the level of the P7ecwnkuucu body. Normal cord signal. Progression of type [...] reviewing the patient's records, labs, imaging and TRANSPLANT SURGEON. Time was spent with the patient obtaining [...] Department Care Team Description 04/10/2023 8:30 AM RAGMAN Appointment [place] [address] Family Medicine [address] [place] [phone] [place] [address] [place], [place] [phone] 04/15/2023 10:45 AM RAGMAN Appointment [facility] [address] [facility] [place] [address] Sin Castorena MD [address] [place], [place] [phone] documented as of this encounter Results * [...] Bilateral facet hypertrophy. Mild canal stenosis. Similar netnoytl-fm-oczurk left and moderate right foraminal stenosis. L4-5: [...] bulge. Bilateral facet hypertrophy. Mildcanal stenosis. Similar czqzinir-ix-nmijbm left and moderate rightforaminal stenosis. L4-5: Disc [...] documented as of this encounter Care Teams Operations Superintendent Relationship Specialty [place] [address] [place] [address] PCP - General Internal Medicine 11/09/15 documented as of this encounter
--- OUTSIDE RECORDS SUMMARY | 2023-04-07 09:31 | XMS_ITS | Encounter Summary ---
Author Name Unknown Organization [facility] Address [address], [place] [address] Care Team Providers Care Manometer Technician Name Role Phone Carolynn Alvarado MD Primary Care Provider [phone] Reason for Visit * Reason Comments Follow-up Encounter Details Date Type Department Care Team Description 10/04/2022 10:30 AM CDT Office Visit [facility] [address] [facility] [place], [place] [address] Sin Castorena MD [address] [place], [place] [phone] Exudative age-related macular degeneration of right eye [...] to keep the eye closed or use sgze-mzf-sdzjany artificial tears for comfort. You may see [...] Eye discharge (other than tears/bloody tears) Call [phone] with any problems. documented in this encounter Progress Notes * Sin Castorena MD - 10/04/2022 10:30 AM CDT Last visit with Dr. Castorena 08/23/[address] Vyas 03/07/22 The [...] Eylea 0.05 mL (2 mg) Lot number: [id number], Exp 04/16/23 Anesthesia: tetracaine, akten 5% povidone [...] Department Care Team Description 04/10/2023 8:30 AM [facility] Appointment [place] [address] [place] [address] [place] [address] [place] [address] 04/15/2023 10:45 AM RETREAD OPERATOR Appointment [facility] [address] [place] [address]. [place], [place] [phone] Sin Castorena MD [address] [place], [place] [phone] documented as of this encounter Visit Diagnoses [...] documented as of this encounter Care Teams Manometer Technician Relationship Specialty [place] [address] [place] [address] PCP - General Internal Medicine 11/09/15 documented as of this encounter
--- OUTSIDE RECORDS SUMMARY | 2023-04-07 09:31 | XMS_ITS | Encounter Summary ---
Author Name Unknown Organization [facility] Address [address] [place] [address] Care Team Providers Care Grain Sacker Name Role Phone Carolynn Alvarado MD Primary Care Provider [phone] Reason for Referral * Consult/Transfer Care (Routine) - New Request Specialty Diagnoses / Procedures Referred By Cecille concepcion Referred To Contact Pain Management Diagnoses Back pain, unspecified back location, unspecified back pain laterality, unspecified chronicity Jolene Levin DO [address] [facility] [place] [address] [facility]13 Pain Clinic [address] [place] [address] Referral ID Status Reason Start Date Expiration Date V isits Requested Visits Authorized [id number] New Request 05/14/2022 08/13/2023 1 1 Scheduling Instructions Your clinician has recommended an appointment with [facility]. If you have questions about your upcoming visit, you may call [phone]. This recommended service/s may not be covered by your insurance coverage. To find out your specific benefit coverage, please call the number on your insurance card. Question Answer Appointment Urgency? Non-Urgent Consult for Comprehensive Pain Assessment Reason for visit? low back pain ASSESSMENT Reason for Visit * Reason Comments BACK PAIN No new injury Encounter Details Date Type Department Care Team Description 05/14/2022 9:30 AM RN ASSESSMENT Office Visit [facility] [address] [place] [phone] Jolene Levin DO [address] [facility] [place] [address] Lumbar radiculopathy (Primary Dx); Back pain, unspecified [...] 59 kg (130 lb) 05/14/2022 9:42 AM RN ASSESSMENT Height 165.1 cm (5' 5) 05/14/2022 9:42 AM RN ASSESSMENT Body Mass Index 21.63 05/14/2022 9:42 AM RN ASSESSMENT documented in this encounter Patient Instructions * Patient Instructions* Mariia Nice, RN - 05/14/2022 9:30 AM RN ASSESSMENT Thank you for choosing [facility] for your health care visit today. Jolene Levin DO Imaging Fur Blender: [facility] - [address] [place] [address]. Call [phone] to schedule. Medication Requests: Prescriptions are filled on Weekdays before 3:00PM For all medication refills: Request a refill using MyChart or contact your Pharmacy Paperwork Requests: FMLA or disability paperwork can be faxed to: [phone] Please allow 7-10 business days for completion of all paperwork. [employer] Worker's Compensation Services: E-mail Address: [email or web address] What is Know Your Cost? Know Your Cost is a service for patients and patient/members to call and receive personalized cost information and estimates across our care group. The phone number is (COST) Friday - Friday 8 AM to 5 PM To request copies of your medical records, call: [phone] (option 4) Diagnosis: low back pain Plan: Follow Up: with Elaine Antonio or Pain clinic (whoever is available first) If you have any questions regarding your visit or next steps, please contact us at [phone]. ASSESSMENT documented in this encounter Progress Notes * Jolene Levin, - 05/14/2022 9:30 AM CST Michelle Franz [id number] [address] [facility] 05/14/2022 Chief Complaint: Low back pain History of Present Illness: Michelle Franz is a 76 y.o. female who presents for evaluation of low back pain. Patient with a verychronic history of low back pain and 3 previous microdiskectomies, most recently in April of 2021. The most recent [address] Gallagher at [facility]. She notes it did not help [...] this week. She has been seen at [facility] and had multiple orders for [...] results and treatment plan.This does include non clyu-qc-rgur time. Jolene Levin DO ASSESSMENT documented in this encounter Plan of Treatment Upcoming Encounters Date Type Department Care Team Description 04/10/2023 8:30 AM RN ASSESSMENT Appointment [place] [address] Family Medicine [address] [place] [address] [place] [address] [place] [address] 04/15/2023 10:45 AM RN ASSESSMENT Appointment [facility] [address] [place] [address] [address] [facility] [place], [place] [address] Sin Castorena MD [address] [place], [place] [address] Scheduled Referrals Name Type Priority Associated Diagnoses Orde r Schedule Pain-Medical Adult Consult [facility] Referral Routine Back pain, unspecified back location, [...] documented as of this encounter Care Teams Grain Sacker Relationship Specialty [place] [address] [address] [place] [address] PCP - General Internal Medicine 11/09/15 documented as of this encounter
--- OUTSIDE RECORDS SUMMARY | 2023-04-07 09:31 | XMS_ITS | Encounter Summary ---
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 [place] [address] Sin Castorena MD [address] [place] [address] Exudative age-related macular degeneration of [...] to keep the eye closed or use dtfj-ulg-hzmqapd artificial tears for comfort. You may see [...] Eye discharge (other than tears/bloody tears) Call [phone] with any problems. documented in this encounter [...] Medicaton: Avastin 0.05 mL (1.25mg) Lot number: [id number], Exp 11/28/2022 Anesthesia: tetracaine, akten 5% povidone [...] Department Care Team Description 04/10/2023 8:30 AM BULB FARMWORKER Appointment [place] [address] Family Medicine [address] [place] [address] [place] [address] [place] [address] 04/15/2023 10:45 AM BULB FARMWORKER Appointment [facility] [address] [facility] [place], [place] [phone] Sin Castorena MD [address] [place], [place] [address] documented as of this encounter Visit Diagnoses [...] documented as of this encounter Care Teams Marketing Copywriter Relationship Specialty [place] [address] [address] [address] PCP - General Internal Medicine 11/09/15 documented as of this encounter
--- OUTSIDE RECORDS SUMMARY | 2023-04-07 09:32 | XMS_ITS | Encounter Summary ---
Author Name Unknown Organization [facility] Address [address] [place] [address] Care Team Providers Care Healthcare Social Worker Name Role Phone Carolynn Alvarado MD Primary Care Provider Encounter Details Date Type Department Care Team Description 05/08/2022 Notes/Orders [facility] [address] Family Medicine [address] [facility] [place], [place] [phone] [place] [address] [place] [address] Screening for colon cancer Social [...] Care Team Description 04/10/2023 8:30 AM SOFTWARE APPLICATION TESTER Appointment [place] [address] Family Medicine [address] [place] [address] [place] [address] [place] [address] 04/15/2023 10:45 AM SOFTWARE APPLICATION TESTER Appointment [facility] [address] [place] [address] Sin Castorena MD [address] [place], [place] [address] documented as of this encounter Results * FIT Colon Rectal Cancer Screening (07/08/2022 8:00 AM CDT) FIT Specimen 1 Negative Negative 07/09/2022 9:41 AM CDT [facility] Stool 07/08/2022 8:00 AM CDT 07/08/2022 6:44 PM CDT Carolynn Alvarado MD LAB_1 Performing Organization Address City/State/[facility] Co de Phone Number [facility] 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
--- OUTSIDE RECORDS SUMMARY | 2023-04-07 09:32 | XMS_ITS | Encounter Summary ---
Author Name Unknown Organization [facility] Address [address] [place] [address] Care Team Providers Care Horse Trainer Name Role Phone Carolynn Alvarado MD Primary Care Provider [phone] Encounter Details Date Type Department Care Team Description 12/08/2018 Refill Order [facility] [address] [place], [place] [phone] [place] [address] [place], [place] [address] Social History Tobacco Use Types Packs/Day Years [...] Department Care Team Description 04/10/2023 8:30 AM EARLY HEAD START TEACHER Appointment [place] [address] Family Medicine [address] [place] [phone] [place] [address] [place] [address] 04/15/2023 10:45 AM EARLY HEAD START TEACHER Appointment [facility] [address] [facility] 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
--- OUTSIDE RECORDS SUMMARY | 2023-04-07 09:32 | XMS_ITS | Encounter Summary ---
Author Name Unknown Organization [facility] Address [address] [place] [address] Care Team Providers Care Business Intelligence Administrator Name Role Phone Carolynn Alvarado MD Primary Care Provider Encounter Details Date Type Department Care Team Description 04/08/2022 11:20 AM PHOTOVOLTAIC PANEL INSTALLER Lab Visit [place] [address] [place], [place] [address] Osteoporosis with current pathological fracture, unspecified osteoporosis [...] Department Care Team Description 04/10/2023 8:30 AM PHOTOVOLTAIC PANEL INSTALLER Appointment [place] [address] Family Medicine [address] [place] [phone] [place] [address] [place] [address] 04/15/2023 10:45 AM PHOTOVOLTAIC PANEL INSTALLER Appointment [address] [facility] [place] [address] Sin Castorena MD [address] [place] [address] documented as of this encounter Procedures Procedure Name Priority Date/Time Associated Diagnosis Comments VITAMIN D 25-HYDROXY, TOTAL Routine 04/08/2022 10:25 AM PHOTOVOLTAIC PANEL INSTALLER Osteoporosis with current pathological fracture, unspecified osteoporosis type, sequela INTACT PTH Routine 04/08/2022 10:25 AM PHOTOVOLTAIC PANEL INSTALLER Osteoporosis with current pathological fracture, unspecified osteoporosis type, sequela BASIC METABOLIC PANEL Routine 04/08/2022 10:25 AM PHOTOVOLTAIC PANEL INSTALLER Osteoporosis with current pathological fracture, unspecified osteoporosis type, sequela PHOSPHORUS Routine 04/08/2022 10:25 AM PHOTOVOLTAIC PANEL INSTALLER Osteoporosis with current pathological fracture, unspecified osteoporosis type, sequela documented in this encounter Results * (ABNORMAL) Vitamin D 25-Hydroxy, Total (04/08/2022 10:25 AM PHOTOVOLTAIC PANEL INSTALLER) Vitamin D, 25-OH, Total 26(L) 30 - 80 ng/mL 04/08/2022 8:20 PM PHOTOVOLTAIC PANEL INSTALLER [facility] Blood Venipuncture / Unknown 04/08/2022 10:25 AM PHOTOVOLTAIC PANEL INSTALLER 04/08/2022 10:25 AM PHOTOVOLTAIC PANEL INSTALLER Narrative [facility] - 04/08/2022 8:20 PM PHOTOVOLTAIC PANEL INSTALLER Expected values Deficiency: <20 ng/mL Insufficiency: 20-29 ng/mL Optimum: 30-80 ng/mL Possible toxicity: >80 ng/mL Reagan Campbell MD LAB_1 [facility] [address] [place], [place] [address] * Intact PTH (04/08/2022 10:25 AM PHOTOVOLTAIC PANEL INSTALLER) Intact PTH 96 10 - 100 pg/mL 04/08/2022 8:02 PM PHOTOVOLTAIC PANEL INSTALLER [facility] Blood Venipuncture / Unknown 04/08/2022 10:25 AM PHOTOVOLTAIC PANEL INSTALLER 04/08/2022 10:25 AM PHOTOVOLTAIC PANEL INSTALLER Reagan Campbell MD LAB_1 [facility] [address] [place], [place] [address] * Phosphorus (04/08/2022 10:25 AM PHOTOVOLTAIC PANEL INSTALLER) Phosphorus 3.2 2.3 - 4.7 mg/dL 04/08/2022 12:01 PM [facility] Blood Venipuncture / Unknown 04/08/2022 10:25 AM PHOTOVOLTAIC PANEL INSTALLER 04/08/2022 10:25 AM PHOTOVOLTAIC PANEL INSTALLER Reagan Campbell MD LAB_1 Performing Organization Address [facility] Co de Phone Number [facility] [address] [place] [address] [phone] * Basic Metabolic Panel (04/08/2022 10:25 AM PHOTOVOLTAIC PANEL INSTALLER) Sodium 141 136 - 145 mmol/L 04/08/2022 12:01 PM [facility] Potassium 4.0 3.5 - 5.1 mmol/L 04/08/2022 12:01 PM [facility] Chloride 103 98 - 109 mmol/L 04/08/2022 12:01 PM [facility] CO2 28 20 - 29 mmol/L 04/08/2022 12:01 PM [facility] Anion Gap 10 7 - 16 mmol/L 04/08/2022 12:01 PM [facility] Calcium 9.2 8.4 - 10.4 mg/dL 04/08/2022 12:01 PM [facility] BUN 10 7 - 26 mg/dL 04/08/2022 12:01 PM [facility] Creatinine 0.70 0.55 - 1.02 mg/dL 04/08/2022 12:01 PM [facility] Glucose 78 70 - 100 mg/dL 04/08/2022 12:01 PM [facility] Comment:The given reference range is for the fasting state. Non-fasting reference range for glucose is 70 - 180 mg/dL. Hours Fasting 2 04/08/2022 12:01 PM [facility] GFR, Estimated >60 >60 mL/min/1.7 3m2 04/08/2022 12:01 PM [facility] Blood Venipuncture / Unknown 04/08/2022 10:25 AM PHOTOVOLTAIC PANEL INSTALLER 04/08/2022 10:25 AM PHOTOVOLTAIC PANEL INSTALLER Reagan Campbell MD LAB_1 [facility] [address] [place] [address], [facility] [phone] documented in this encounter Visit Diagnoses Diagnosis Osteoporosis with current pathological fracture, unspecified osteoporosis type, sequela documented in this encounter Additional Health Concerns Infection Onset Date Last Indicated Resolved Time 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
--- OUTSIDE RECORDS SUMMARY | 2023-04-07 09:32 | XMS_ITS | Encounter Summary ---
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 [place] [address] Sin Castorena MD [address] [place] [address] Exudative age-related macular degeneration of [...] Instructions* Laura Bueno - 04/30/2022 10:45 AM BOILER INSTALLER Control your blood pressure, blood sugar and [...] to keep the eye closed or use [id number] artificial tears for comfort. You may see [...] Eye discharge (other than tears/bloody tears) Call [phone] with any problems. ER INSTALLER documented in this encounter Progress Notes * [...] the patient and family- Sin Castorena MD ER INSTALLER documented in this encounter Procedure Notes * Laura Bueno - 04/30/2022 10:45 AM CST Intravitreal Injection Operative Report Eye: Right Surgeon: Sin Castorena MD Medicaton: Avastin 0.05 mL (1.25mg) Lot number: [id number], Exp 07/25/2022 Anesthesia: tetracaine, akten 5% povidone [...] of a peripheral shadow in the vision. ER INSTALLER documented in this encounter Plan of Treatment Upcoming Encounters Date Type Department Care Team Description 04/10/2023 8:30 AM BOILER INSTALLER Appointment [facility] [address] [facility] [address] [place] [address] [place] [address] [place] [address] 04/15/2023 10:45 AM BOILER INSTALLER Appointment [facility] [address] [facility]. [place], [place] [address] Sin Castorena MD [address] [place], [place] [address] documented as of this encounter Visit Diagnoses [...] documented as of this encounter Care Teams Infrastructure Engineer Relationship Specialty Start [place] [address] [place] [address] PCP - General Internal Medicine 11/09/15 documented as of this encounter
--- OUTSIDE RECORDS SUMMARY | 2023-04-07 09:32 | XMS_ITS | Encounter Summary ---
Author Name Unknown Organization [facility] Address [address], [place] [address] Care Team Providers Care Campus Security Director Name Role Phone Carolynn Alvarado MD Primary Care Provider [phone] Reason for Visit * Reason Comments Follow-up Encounter Details Date Type Department Care Team Description 04/08/2022 9:30 AM MEAT MANAGER Office Visit [facility] [address] [place] [address] Reagan Campbell MD [facility] [place] [address] Osteoporosis with current pathological fracture, [...] Comments Blood Pressure 138/84 04/08/2022 9:32 AM MEAT MANAGER Pulse 83 04/08/2022 9:32 AM MEAT MANAGER Temperature - - Respiratory Rate - - Oxygen Saturation - - Inhaled Oxygen Concentration - - Weight 59.2 kg (130 lb 9.6 oz) 04/08/2022 9:32 A M MEAT MANAGER Height 166.4 cm (5' 5.5) 04/08/2022 9:32 AM MEAT MANAGER Body Mass Index 21.4 04/08/2022 9:32 AM MEAT MANAGER documented in this encounter Patient Instructions * Patient Instructions* Reagan Campbell MD - 04/08/2022 9:30 AM MEAT MANAGER Start Forteo injections Take Tums twice daily Vit D 2000 IU daily. MANAGER documented in this encounter Progress Notes * [...] possibly spinal fusion. Her orthopedic physicians at [facility] recommended treatment for osteoporosis. In October [...] Component Value Date Intact PTH 67 03/06/2020 MANAGER documented in this encounter Plan of Treatment Upcoming Encounters Date Type Department Care Team Description 04/10/2023 8:30 AM MEAT MANAGER Appointment [place] [address] [facility] [address] [place] [address] [place] [address] [place] [address] 04/15/2023 10:45 AM MEAT MANAGER Appointment [facility] [address] [facility] [place], [place] [id number] Sin Castorena MD [address] [place], [place] [id number] documented as of this encounter Results * (ABNORMAL) Vitamin D 25-Hydroxy, Total (04/08/2022 10:25 AM MEAT MANAGER) Vitamin D, 25-OH, Total 26(L) 30 - 80 ng/mL 04/08/2022 8:20 PM MEAT MANAGER [facility] Blood Venipuncture / Unknown 04/08/2022 10:25 AM MEAT MANAGER 04/08/2022 10:25 AM MEAT MANAGER Narrative [facility] - 04/08/2022 8:20 PM MEAT MANAGER Expected values Deficiency: <20 ng/mL Insufficiency: 20-29 ng/mL Optimum: 30-80 ng/mL Possible toxicity: >80 ng/mL Reagan Campbell MD LAB_1 Performing Organization Address [facility] de Phone Number [facility] [address] [place] [address] * Intact PTH (04/08/2022 10:25 AM MEAT MANAGER) Intact PTH 96 10 - 100 pg/mL 04/08/2022 8:02 PM MEAT MANAGER [facility] Blood Venipuncture / Unknown 04/08/2022 10:25 AM MEAT MANAGER 04/08/2022 10:25 AM MEAT MANAGER Reagan Campbell MD LAB_1 Performing Organization Address [facility] de Phone Number [facility] [address] [place] [address] * Phosphorus (04/08/2022 10:25 AM MEAT MANAGER) Phosphorus 3.2 2.3 - 4.7 mg/dL 04/08/2022 12:01 PM [facility] Blood Venipuncture / Unknown 04/08/2022 10:25 AM MEAT MANAGER 04/08/2022 10:25 AM MEAT MANAGER Reagan Campbell MD LAB_1 Performing Organization Address [facility]/ZIP Co de Phone Number [facility] [address] [place] [address], [facility] [phone] * Basic Metabolic Panel (04/08/2022 10:25 AM [facility]) Sodium 141 136 - 145 mmol/L 04/08/2022 12:01 PM [facility] Potassium 4.0 3.5 - 5.1 mmol/L 04/08/2022 12:01 PM [facility] Chloride 103 98 - 109 mmol/L 04/08/2022 12:01 PM [facility] CO2 28 20 - 29 mmol/L 04/08/2022 12:01 PM [facility] Anion Gap 10 7 - 16 mmol/L 04/08/2022 12:01 PM [facility] Calcium 9.2 8.4 - 10.4 mg/dL 04/08/2022 12:01 PM [facility] BUN 10 7 - 26 mg/dL 04/08/2022 12:01 PM [facility] Creatinine 0.70 0.55 - 1.02 mg/dL 04/08/2022 12:01 PM [facility] Glucose 78 70 - 100 mg/dL 04/08/2022 12:01 PM [facility] Comment:The given reference range is for the fasting state. Non-fasting reference range for glucose is 70 - 180 mg/dL. Hours Fasting 2 04/08/2022 12:01 PM [facility] GFR, Estimated >60 >60 mL/min/1.7 3m2 04/08/2022 12:01 PM [facility] Blood Venipuncture / Unknown 04/08/2022 10:25 AM MEAT MANAGER 04/08/2022 10:25 AM MEAT MANAGER Reagan Campbell MD LAB_1 [facility] [address] [place] [address], [facility] [phone] documented in this encounter Visit Diagnoses Diagnosis Osteoporosis with current pathological fracture, unspecified osteoporosis type, sequela- Primary documented in this encounter Additional Health Concerns Infection Onset Date Last Indicated Resolved Time 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
== END 2023-04-05 07:58 | disposition home or self-care (01) ==
LOC: AMB 04-07 09:24
PROVIDERS: Visit Provider Internal Medicine
DX: M54.9 Dorsalgia, unspecified (principal); I49.9 Cardiac arrhythmia, unspecified
CPT/HCPCS: A0425; A0427

== ENCOUNTER 2023-04-05 08:41 | Emergency (ER) | payer MEDICARE, OTHER, SELFPAY ==
[2023-04-05] VITALS (43 sets, daily range): BP systolic 92–134; BP diastolic 59–91; PULSE 72–139; TEMP 36.6; O2SAT 83–99; BMI 23.2
--- NOTE | 2023-04-05 08:55 | ED_ITS ---
HPI - Arrhythmia/Palpitations General Date Seen: 04/05/23 Chief Complaint: Arrhythmia/Palpitations Stated Complaint: AFIB Time Seen by Provider: 04/05/23 08:49 Source: patient and EMS Mode of arrival: EMS Limitations: no limitations History of Present Illness HPI narrative: Patient is a 77-year-old female with a history of paroxysmal AFib needed previous cardioversions, lumbar fusion 4 days ago presenting to emergency department for palpitations. She was picked up by EMS after she noticed the palpitations started about an hour prior to arrival. States this feels like her previous AFib. When EMS 1st arrived she was hypoxic but they note they were not able to get great waveforms to the cannot say for certain this was true or not so they this put her on oxygen precautionary early. By the time she arrived to emergency department she was satting 99% on room air. She states this feels the just like her previous AFib but does note she talk to her child development specialist for preop visit and was told she will likely go into AFib after the procedure so this is not unexpected. She is complaining about left hip and leg pain. She states that started after the procedure was not having any incisional pain. She has not think her pain is being controlled well enough at this time. Denies fevers, chills, chest pain, shortness of breath, weakness, numbness, lightheadedness, dizziness, abdominal pain. No other concerns at this time peer Related Data Home Medications Medication Instructions Recorded Confirmed amlodipine 10 mg tablet 10 mg PO 04/05/22 02/13/23 atenolol 25 mg tablet 25 mg PO Q24H 04/05/22 02/23/23 desipramine 25 mg tablet 25 mg PO 04/05/22 02/13/23 duloxetine 20 mg capsule,delayed 80 mg PO 04/05/22 02/13/23 release duloxetine 60 mg capsule,delayed ea PO 04/05/22 02/13/23 release famotidine 20 mg tablet 20 mg PO 04/05/22 02/13/23 lorazepam 0.5 mg tablet 0.5 mg PO 04/05/22 02/13/23 methocarbamol 500 mg tablet 500 mg PO 04/05/22 02/13/23 pregabalin 25 mg capsule (Lyrica) 25 mg PO DAILY 02/23/23 02/23/23 Previous Rx's Medication Instructions Recorded methylprednisolone 4 mg tablets in See Rx Instructions PO PER PKG DIR 06/25/22 a dose pack (Medrol (Oscar)) #21 ea apixaban 5 mg tablet (Eliquis) 5 mg PO BID #60 tabs 02/23/23 Allergies Allergy/AdvReac Type Severity Reaction Status Date / Time lisinopril Allergy Unknown Headache Verified 02/23/23 10:38 Review of Systems Status of ROS: Reports: 10 or more systems reviewed and unremarkable except as noted in History and below PFSH PFS Social History Smoking Status: Never smoker Do you use any of these nicotine containing products: None Second hand tobacco smoke exposure: No How often do you have a drink containing alcohol: never How often do you have six or more drinks on one occasion: Never AUDIT-C Alcohol total score: 0 Non-prescribed substance use: denies use service: No Exam Narrative: Exam Narrative: Const: Well-nourished, Well-developed, in mild distress Eyes: PERRL, no conjunctival injection, and symmetrical lids HENT: Atraumatic external nose and ears. Moist mucous membranes. Neck: Symmetric, trachea midline, No thyromegaly. CVS: Tachycardic, No murmurs or gallops. Peripheral pulses 2+ and equal in all extremities RESP: Unlabored respiratory effort. Clear to auscultation bilaterally. GI: Nontender/Nondistended, No rebound or guarding. MSK:Extremities w/o deformity, Normal Active ROM Skin: Warm, Dry. Surgical incision to low back covered that is currently covered in Steri-Strips but no obvious erythema seen Neuro: Normal Muscle tone, No focal neurological deficits. Psych: Awake, Alert, & Oriented x3. Appropriate mood and affect. Const: Vital Signs, click to edit/add: Vital Signs - 24 hr 04/05/23 08:44 04/05/23 08:47 04/05/23 08:48 Temperature 97.8 F Pulse Rate 132 H 139 H Pulse Rate [Apical ] 131 H Blood Pressure 128/83 Blood Pressure [Ri ght Upper Arm] 134/83 Pulse Oximetry 99 94 93 Oxygen Delivery Me thod Room Air 04/05/23 09:00 04/05/23 09:01 04/05/23 09:15 Temperature Pulse Rate 138 H 132 H 131 H Pulse Rate [Apical ] Blood Pressure 126/91 H Blood Pressure [Ri ght Upper Arm] Pulse Oximetry 96 97 89 Oxygen Delivery Me thod 04/05/23 09:30 04/05/23 09:32 04/05/23 09:45 Temperature Pulse Rate 115 H 112 H 118 H Pulse Rate [Apical ] Blood Pressure 118/84 Blood Pressure [Ri ght Upper Arm] Pulse Oximetry 92 94 94 Oxygen Delivery Me thod 04/05/23 10:00 04/05/23 10:01 04/05/23 10:15 Temperature Pulse Rate 84 84 81 Pulse Rate [Apical ] Blood Pressure 113/63 Blood Pressure [Ri ght Upper Arm] Pulse Oximetry 97 98 95 Oxygen Delivery Me thod 04/05/23 10:30 04/05/23 10:32 04/05/23 10:45 Temperature Pulse Rate 82 94 86 Pulse Rate [Apical ] Blood Pressure 123/78 Blood Pressure [Ri ght Upper Arm] Pulse Oximetry 94 96 96 Oxygen Delivery Me thod 04/05/23 11:36 04/05/23 11:37 04/05/23 11:45 Temperature Pulse Rate 117 H 119 H 110 H Pulse Rate [Apical ] Blood Pressure 98/59 L Blood Pressure [Ri ght Upper Arm] Pulse Oximetry 99 96 83 L Oxygen Delivery Me thod 04/05/23 12:00 04/05/23 12:02 04/05/23 12:17 Temperature Pulse Rate 97 108 H 118 H Pulse Rate [Apical ] Blood Pressure 134/83 Blood Pressure [Ri ght Upper Arm] Pulse Oximetry 89 91 95 Oxygen Delivery Me thod 04/05/23 12:30 04/05/23 12:31 Temperature Pulse Rate 107 H 109 H Pulse Rate [Apical ] Blood Pressure 121/74 Blood Pressure [Ri ght Upper Arm] Pulse Oximetry 94 95 Oxygen Delivery Me thod Course Vital Signs Vital signs: Initial Vital Signs Temperature 97.8 F 04/05/23 08:44 Temperature Source Temporal Artery Scan 04/05/23 08:44 Pulse Rate 131 H 04/05/23 08:44 Pulse Rhythm Irregular 04/05/23 08:44 Blood Pressure 134/83 04/05/23 08:44 Blood Pressure Mean 100 04/05/23 08:44 Blood Pressure Position Supine 01/20/24 08:44 Pulse Oximetry 99 04/05/23 08:44 Oxygen Delivery Method Room Air 04/05/23 08:44 Vital Signs Temperature 97.8 F 04/05/23 08:44 Pulse Rate 131 H 04/05/23 08:44 Blood Pressure 134/83 04/05/23 08:44 Pulse Oximetry 99 04/05/23 08:44 Oxygen Delivery Method Room Air 04/05/23 08:44 Temperature 97.8 F 04/05/23 08:44 Pulse Rate 109 H 04/05/23 12:31 Blood Pressure 121/74 04/05/23 12:31 Pulse Oximetry 95 04/05/23 12:31 Oxygen Delivery Method Room Air 04/05/23 08:44 Medications Administered Medications: Discontinued Medications Generic Name Dose Route Start Last Admin Trade Name Freq PRN Reason Stop Dose Admin Dexamethasone 6 mg 04/05/23 11:00 04/05/23 11:25 Dexamethasone 10 Mg/Ml Inj IV 04/05/23 11:01 6 mg ONCE ONE Administration Diltiazem HCl 15 mg 04/05/23 08:49 04/05/23 09:19 Diltiazem 5 Mg/Ml Inj IVP 04/05/23 08:50 15 mg ONCE ONE Administration Diltiazem HCl 20 mg 04/05/23 09:50 04/05/23 09:54 Diltiazem 5 Mg/Ml Inj IVP 04/05/23 09:51 20 mg ONCE ONE Administration Lactated Ringer's 1,000 mls @ 1,000 mls/hr 04/05/23 09:25 04/05/23 09:36 Lactated Ringers 1000 Ml IV 04/05/23 10:24 1,000 mls/hr .Q1H ONE Administration Oxycodone HCl 5 mg 04/05/23 09:37 04/05/23 09:43 Oxycodone 5 Mg Tablet PO 04/05/23 09:38 5 mg ONCE ONE Administration MDM - Arrhythmia/Palpitations MDM Narrative Medical decision making narrative: Patient is a 77-year-old female presenting to the emergency department for palpitations. She states this started about an hour ago. She was discharged from the hospital 2 days ago after back surgery. Based on her description her AFib with RVR seems to have just started an has unlikely to have been going on for over 2 days. She did states this was expected to have been by her child development specialist. She was hypoxic her pulse ox in the field but EMS the that was due to her hands being cold and she is no longer hypoxic here. Her only complaint at this time was the palpitations and left hip and leg pain that she describes as feeling like a charley horse. Order a cbc, CMP, troponin. EKG done showing AFib with RVR. Since she is stable this time we will start by giving her Cardizem to see if that converts her. After initial dose of Cardizem heart rate came down to the 110's. Of larger dose of Cardizem was then given and heart rate was then in the 80s but she was still in AFib. She is still hemodynamically stable and not believe is necessary to cardiovert her. Lab work shows a white count of 15. She did recently have surgery so this could be from that. Typically back surgeries formed be infected until 2 to 3 weeks after. What her chest x-ray does make sure there was no associated pneumonia. AST and ALT are slightly elevated at unsure what her baseline is. No apparent liver disease at this time though. Electrolytes showed no concerning findings. Test seems tiny bit low at 3.5. Hemoglobin is 9.8 which is improved from her previous hemoglobin after surgery according to the patient. I am not able to access her lab work from [facility]. I spoke to the on-call PA for spine surgery at [facility] and he recommends giving Decadron to help with inflammation. He states if she is unable to ambulate though they can accept her for transfer. I spoke to the patient and her family about this and I did not feel comfortable with her home because she is unable to ambulate other than a slight pivot due to the pain. They would feel more comfortable for admission. Patient was agreeable to be transferred to [facility]. I spoke to the accepting hospitalist Dr. Lu, who accepted her for transfer. I informed her that heart rate starting to climb back up again but that I think she can do well on oral right control and due to that was recommended to start her at 25 mg of metoprolol b.i.d. this was ordered. Patient was requesting her Robaxin but we did not have it in our hospital to give. She hallucinated on other muscle relaxers. Lab Data Labs: Lab Results 04/05/23 04/05/23 Range/Units 09:10 10:33 WBC 15.04 H (4.50-11.00) K/uL RBC 3.19 L (4.00-5.20) m/uL Hgb 9.8 L (12.0-16.0) gm/dL Hct 30.6 L (33.0-51.0) % MCV 96 (80-100) fL MCH 31 (26-34) pg MCHC 32 (32-36) gm/dL RDW Coeff of Chidi 13.0 (11.5-15.5) % Plt Count 463 H (140-440) K/uL Neut % (Auto) 73.7 H (42.0-72.0) % Lymph % (Auto) 14.3 L (20-44) % Haines % (Auto) 9.0 (0.0-11.0) % Eos % (Auto) 2.1 (0.0-7.0) % Baso % (Auto) 0.3 (0.0-3.0) % Neut # (Auto) 11.10 H (1.7-7.0) K/uL Lymph # (Auto) 2.20 (0.90-2.90) K/uL Haines # (Auto) 1.40 H (0.00-0.90) K/UL Eos # (Auto) 0.30 (0.00-0.50) K/uL Baso # (Auto) 0.00 (0.00-0.30) K/uL Abs Immat Gran (auto) 0.10 (0.00-0.30) K/uL Imm/Tot Granulo (auto) 0.6 % Sodium 138 (135-149) mmol/L Potassium 3.5 L (3.6-5.1) mmol/L Chloride 101 (96-114) mmol/L Carbon Dioxide 30 (20-32) mmol/L Anion Gap 7 (7-15) mEq/L BUN 9 (7-30) mg/dL Creatinine 0.5 (0.5-1.5) mg/dL Estimated Creat Clear 41.97 Estimated GFR 98 ml/min Glucose 114 (60-115) mg/dL Calcium 7.8 L (8.4-10.6) mg/dL Total Bilirubin 0.9 (0.1-1.5) mg/dL AST 60 H (12-35) U/L ALT 146 H (4-35) U/L Alkaline Phosphatase 150 (40-150) U/L Troponin I < 0.01 L (0.01-0.04) ng/mL C-Reactive Protein 16.4 H (0.5-1.0) mg/dL Total Protein 6.9 (6.0-8.3) g/dL Albumin 3.6 (3.3-5.0) g/dL Lab Acknowledgement Test Added POC Troponin I 0.01 (0.01-0.04) ng/ml ECG Data Attestation: I personally reviewed and interpreted this ECG as follows: Prior ECG tracings: available for review Interpretation: Initial EKG AFib with RVR rate of 134 beats per minute, normal axis, no ST or T- wave abnormalities. Repeat EKG at 10:48 after Cardizem: AFib with rate 90 for beats per minute, normal axis, no ST or T-wave abnormalities Previous EKG on file shows for normal sinus rhythm from 02/25/2023 Discharge Plan Discharge Clinical Impression: Acute leg pain Qualifiers: Laterality: left Qualified Code(s): M79.605 - Pain in left leg Atrial fibrillation Qualifiers: Atrial fibrillation type: unspecified Qualified Code(s): I48.91 - Unspecified atrial fibrillation Patient Disposition: Xfer Other Discharge Location: [facility] Condition: Improved Prescriptions: No Action duloxetine 60 mg capsule,delayed release(DR/EC) PO amlodipine 10 mg tablet 10 mg PO duloxetine 20 mg capsule,delayed release(DR/EC) 80 mg PO Patient Comments: TAKE 1 CAPSULE BY MOUTH EVERY DAY atenolol 25 mg tablet 25 mg PO Q24H lorazepam 0.5 mg tablet 0.5 mg PO Patient Comments: TAKE 1-2 TABLETS BY MOUTH EVERY NIGHT AT BEDTIME. desipramine 25 mg tablet 25 mg PO Patient Comments: TAKE 1 TABLET BY MOUTH EVERY MORNING. UPDATE REFILLS FOR 1 YEAR. methocarbamol 500 mg tablet 500 mg PO famotidine 20 mg tablet 20 mg PO pregabalin [Lyrica] 25 mg capsule 25 mg PO DAILY Eliquis 5 mg tablet 5 mg PO BID Qty: 60 2RF methylprednisolone [Medrol (Oscar)] 4 mg tablets,dose pack See Rx Instructions PO PER PKG DIR Qty: 21 0RF Rx Instructions: PO PER PKG DIR Follow Up/Referrals: Provider,Not a Local [Primary Care Provider] - Stand Alone Forms: [employer] Info Instructions
[2023-04-05] MEDS: dilTIAZem 5 MG/ML inj 15 MG IVP (09:19)
--- OUTSIDE RECORDS SUMMARY | 2023-04-05 09:20 | XMS_ITS | Encounter Summary ---
Author Name Unknown Organization [facility] Address [address] [place] [id number] Care Team Providers Care Student Services Representative Name Role Phone Carolynn Alvarado MD Primary Care Provider [phone] Encounter Details Date Type Department Care Team (Latest Contact Info) Description 04/01/2023 Travel Social History Tobacco Use Types Packs/Day Years Used Date Smoking Tobacco: Never Smokeless Tobacco: Never Alcohol Use Standard Drinks/Week Comments Never 0 (1 standard drink = 0.6 oz pur e alcohol) [facility] Utilities Answer Date Recorded In the past 12 months has e [employer], gas, oil, or water [employer] threatened to shut off services in your home? No 04/01/2023 Humiliation, Afraid, Rape, and Kick questionnair e Answer Date Recorded Within the last year, have y ou been afraid of your partner or ex-partner? No 04/01/2023 Within the last year, have y ou been humiliated or emotionally abused in other ways by your partner or ex-partner? No Within the last year, have y ou been kicked, hit, slapped, or otherwise physically hurt by your partner or ex-partner? No 04/01/2023 Within the last year, have y ou been raped or forced to have any kind of sexual activity by your partner or ex-partner? No 04/01/2023 Hunger Vital Sign Answer Date Recorded Within the past 12 months, y ou worried that your food would run out before you got the money to buy more. Never true 04/01/19 24 Within the past 12 months, t he food you bought just didn't last and you didn't have money to get more. Never true 04/01/2023 PRAPARE - Transportation Answer Date Re corded In the past 12 months, has l ack of transportation kept you from medical appointments or from getting medications? No 03/17 In the past 12 months, has l ack of transportation kept you from meetings, work, or from getting things needed for daily living? No 04/01/2023 Housing Stability Vital Sign Answer Shailesh e Recorded In the last 12 months, was t here a time when you were not able to pay the mortgage or rent on time? No 04/01/2023 In the last 12 months, how many places have you lived? 1 04/01/2023 In the last 12 months, was t here a time when you did not have a steady place to sleep or slept in a care home (including now)? 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
--- OUTSIDE RECORDS SUMMARY | 2023-04-05 09:20 | XMS_ITS | Clinical Summary ---
Author Name Unknown Organization [facility] Address [address] [place] [address] Care Team Providers Care Dag Coater Name Role Phone Carolynn Alvarado MD Primary Care Provider [phone] [facility] Unavailable Allergies Active Allergy Reactions Criticality Noted Date Comments Lisinopril 03/26/2023 COHEN Medications Medication Sig Dispensed Refills Start Date End Date Status medical supply, miscellaneous (ELECTRICAL BONE GROWTH STIMULATOR)Indicat ions:S/P lumbar fusion Company: [employer] - for home use. 1 each 0 02/25/2023 Active calcium carbonate (TUMS) 200 mg calcium (500 mg) oral chew tabIndications:S/P lumbar fusion Chew 1 tablet (500 mg) twice a day with breakfast and dinner. 180 tablet 3 02/25/2023 Active ergocalciferol (VITAMIN D2) 1,250 mcg (50,000 unit) oral capsuleIndications :S/P lumbar fusion Take 1 capsule (50,000 Units) by mouth every 7 (seven) days. 12 capsule 3 02/25/2023 Active amLODIPine (NORVASC) 10 mg oral tablet Take 1 tablet (10 mg) by mouth Daily. 0 03/14/2022 Active desipramine (NORPRAMIN) 25 mg oral tablet Take 1 tablet (25 mg) by mouth Daily. 0 Active pregabalin (LYRICA) 25 mg oral capsule Take 2 capsules (50 mg) by mouth twice a day. 0 08/19/2022 Active famotidine (PEPCID) 20 mg oral tablet Take 1 tablet (20 mg) by mouth once daily. 0 03/14/2022 Active DULoxetine (CYMBALTA) 20 mg oral delayed release capsule 1 capsule (20 mg) once daily. 0 01/27/2023 Active DULoxetine (CYMBALTA) 60 mg oral delayed release capsule Take 1 capsule (60 mg) by mouth once daily. 0 01/02/2023 Active LORazepam (ATIVAN) 0.5 mg oral tablet Take 2 tablets (1 mg) by mouth at bedtime as needed. 0 02/03/2023 Active atenolol (TENORMIN) 25 mg oral tablet Take 1 tablet (25 mg) by mouth once daily. 0 03/14/2022 Active senna-docusate (SENNA-S) 8.6-50 mg oral tablet Take 1 tablet by mouth twice a day as needed. 60 tablet 0 04/03/2023 Active oxyCODONE, immediate release, (ROXICODONE) 5 mg oral tablet Take 1-2 tablets (5-10 mg) by mouth every 6 (six) hours as needed. 35 tablet 0 04/03/2023 Active hydrOXYzine pamoate (VISTARIL) 25 mg oral capsule Take 1 capsule (25 mg) by mouth every 6 (six) hours as needed. 12 capsule 0 04/03/2023 Active tiZANidine (ZANAFLEX) 2 mg oral tablet Take 2 tablets (4 mg) by mouth four times a day. 20 tablet 0 04/03/2023 Active methocarbamoL (ROBAXIN) 500 mg oral tablet 1 tablet (500 mg) at bedtime as needed. 0 12/24/2022 4 Discontinued acetaminophen (TYLENOL) 500 mg oral tablet Take 2 tablets (1,000 mg) by mouth every 6 (six) hours as needed. 0 4 Discontinued Calcium Citrate-Vitamin D3 315 mg-5 mcg (200 unit) oral Tab Take 1 tablet by mouth twice a day. 0 03/14/2022 4 Discontinued Cholecalciferol, Vitamin D3, 50 mcg (2,000 unit) oral capsule Take 2,000 Units by mouth Daily. 0 03/14/2022 4 Discontinued Active Problems Problem Noted Date Diagnosed Date Lumbar radiculopathy 04/01/2023 Encounters Date Type Department Care Team Description 04/01/2023 7:25 AM SHUTTLE HAND - 04/01/2023 11:50 AM SHUTTLE HAND Surgery [facility] Operating Room [address] [place] [address] Isai Foss MD L1-5 POSTERIOR FUSION WITH INSTRUMENTATION WITH NEURO MONITORING 04/01/2023 5:52 AM SHUTTLE HAND - 04/03/2023 3:20 PM [facility] Hospital Encounter A[address] [place] [address] [place] [address] Isai Foss MD Lumbar radiculopathy Discharge Disposition: Returning Home/Self Care 04/01/2023 Travel 03/28/2023 Prep For Procedure [employer] PROVID[facility] [address] [place] [address] [place] [address] Nj Thorne, PAYogiC 03/26/2023 Travel 03/12/2023 Travel from Last 3 Months Social History Tobacco Use Types Packs/Day Years Used Date Smoking Tobacco: Never Smokeless Tobacco: Never Tobacco Cessation:Counseling Given: Not Answered Alcohol Use Standard Drinks/Week Comments Never 0 (1 standard drink = 0.6 oz pur e alcohol) [facility] [employer] Answer Date Recorded In the past 12 months has [employer], gas, oil, or water [employer] threatened to shut off services in your [...] place to sleep or slept in a correction (including now)? No 04/01/2023 Sex and Gender Information Value Date Recorded Sex Assigned at Female 03/11/2023 11:10 AM SHUTTLE HAND Gender Identity Female 03/11/2023 11:10 AM SHUTTLE HAND Sexual Orientation Straight 03/11/2023 11 :10 AM SHUTTLE HAND Last Filed Vital Signs Vital Sign Reading Time Taken Comments Blood Pressure 99/59 04/03/2023 2:30 PM SHUTTLE HAND Pulse 81 04/03/2023 2:30 PM SHUTTLE HAND Temperature 36.8 ??C (98.3 ??F) 04/03/2023 2:30 PM CS T Respiratory Rate 18 04/03/2023 2:30 PM SHUTTLE HAND Oxygen Saturation 96% 04/03/2023 2:30 PM SHUTTLE HAND Inhaled Oxygen Concentration - - Weight 67.6 kg (149 lb 0.5 oz) 04/01/2023 4:45 P M SHUTTLE HAND Height 162.6 cm (5' 4) 04/01/2023 4:45 PM SHUTTLE HAND Body Mass Index 25.58 04/01/2023 4:45 PM SHUTTLE HAND Plan of Treatment Health Maintenance Due Date Last Done Comments Colonoscopy 1945 Hepatitis C Screening 1945 Lipid Screening 1945 Depression Assessment (PHQ-2) 12/29/1946 Zoster Vaccine (1 of 2) 12/29/1997 RSV (1 - 1-dose 60+ series) 2007 COVID-19 Vaccine (2022-2 4 season) 2022 12/04/2021, 03/07/2021, 05/19/2020, Additional history exists Dexa Scan 11/15/2023 11/14/2021, 05/19/2019 Yearly Review of HCD 02/25/2024 02/25/2023 Mammogram Screening 12/20/2024 12/20/2022, 10/01/2021, 03/13/2020, Additional history exists Adult Tetanus Booster 03/24/2029 03/24/2019 , 11/26/2007, 01/31/1999, Additional history exists Pneumococcal 65+ Completed 01/28/2017, 10/27/2014 Influenza Vaccine Completed 01/04/2023, , 12/23/2020, Additional history exists Medical Devices Implanted Type Area Transit Survey Worker Device Identifier Shelf Expiration Date Model / Serial / Lot Cancellous Chips 30cc - [id number] Implanted:Qty : 1 on 04/01/2023 by Isai Foss MD at [facility] Bone N/A: Spine Lumbar [employer] 01/23/2027 [id number] / [id number] / Infuse Med - [id number] Implanted:Qty : 1 on 04/01/2023 by Isai Foss MD at [facility] Prosthetic Implant Non-Specific N/A: Spine Lumbar [employer] Sofamor [employer]ane[employer] 09/14/2024 [id number] / / [id number] 5.5mm Ti Alloy Curved Jarred, 125mm Implanted:Qty : 2 on 04/01/2023 by Isai Foss MD at [facility] Back [id number] / / Description:MFTR: [employer] Procedures Procedure Name Priority Date/Time Associated Diagnosis Comments HEMOGLOBIN Routine 04/03/2023 7:00 AM SHUTTLE HAND HEMOGLOBIN Timed Procedure 04/02/2023 3:26 PM SHUTTLE HAND XR SPINE LUMBAR ROUTINE STAT 04/02/2023 10:43 AM SHUTTLE HAND EXTRA TUBE-SST (LAB USE ONLY) Routine 04/02/2023 7:28 AM SHUTTLE HAND HEMOGLOBIN Routine 04/02/2023 7:28 AM SHUTTLE HAND XR C-ARM SPINE STAT 04/01/2023 10:36 AM SHUTTLE HAND INTUBATION Routine 04/01/2023 8:15 AM SHUTTLE HAND SPIN BONE AUTOGRFT LOCAL 04/01/2023 7:29 AM SHUTTLE HAND Degeneration of lumbar intervertebral disc ALLOGRAFT FOR SPINE SURGERY ONLY MORSELIZED 04/01/2023 7:29 AM SHUTTLE HAND Degeneration of lumbar intervertebral disc INSERT VERT FIX DEV,POST,3-6 * 04/01/2023 7:29 AM SHUTTLE HAND Degeneration of lumbar intervertebral disc SPINE FUSN,POST TECH,EA ADDNL* 04/01/2023 7:29 AM SHUTTLE HAND Degeneration of lumbar intervertebral disc ARTHRODESIS POSTERIOR/POSTEROLAT ERAL LUMBAR 04/01/2023 7:29 AM SHUTTLE HAND Degeneration of lumbar intervertebral disc ABORH CONFIRM (LAB USE ONLY) STAT 04/01/2023 6:47 AM SHUTTLE HAND HEMATOCRIT STAT 04/01/2023 6:46 AM SHUTTLE HAND HEMOGLOBIN STAT 04/01/2023 6:46 AM SHUTTLE HAND TYPE AND SCREEN STAT 04/01/2023 6:46 AM SHUTTLE HAND PARTIAL THROMBOPLASTIN TIME STAT 04/01/2023 6:46 AM SHUTTLE HAND PROTIME/INR STAT 04/01/2023 6:46 AM SHUTTLE HAND POCT GLU METER STAT 04/01/2023 6:12 AM SHUTTLE HAND from Last 3 Months Results * (ABNORMAL) Hemoglobin (04/03/2023 7:00 AM SHUTTLE HAND) Only the most recent of4 resultswithin the time period is included. Hemoglobin 8.5(L) 12.0 - 16.0 gm/dL 04/03/2023 7:25 AM SHUTTLE HAND [facility] Blood 04/03/2023 7:00 AM SHUTTLE HAND 04/03/2023 7:17 AM SHUTTLE HAND Nj Thorne PA-C HEMATOLOGY ORDERA BLE [facility] [address] [place] [address] * XR SPINE LUMBAR ROUTINE (04/02/2023 10:43 AM SHUTTLE HAND) Anatomical Region Laterality Modality Spine Computed Radiogr aphy 04/02/2023 11:2 7 AM SHUTTLE HAND Impressions 04/02/2023 11:29 AM SHUTTLE HAND IMPRESSION: 1. Operative changes of posterior jarred and pedicle screw fixation L1-L5 with posterolateral bone graft material, grossly negative for postoperative purposes. Lumbar vertebral body alignment described in more detail above. 2. Old superior and inferior pubic rami fractures. REPORT SIGNED BY Janice Talavera M.D. Narrative 04/02/2023 11:29 AM SHUTTLE HAND EXAM: ??XR SPINE LUMBAR ROUTINE DATE: 04/02/2023 10:31 AM CLINICAL DATA: Patient age: [age] years old. L1-L5 posterior spinal fusion. COMPARISON: ??No prior comparisons. TECHNICAL INFORMATION: ?Routine Views: ??AP, lateral and coned lateral L5-S1 views. INTERPRETATION: ?? Levocurvature of the lumbar spine with apex at L1. Operative changes of posterior jarred and pedicle screw fixation L1-L5. Hardware appears intact. Lateral wedging of the right lateral wedging of the L2 vertebral body. Approximately 10 mm anterolisthesis of L4 on L5 visualized in the sagittal projection. Asymmetric right L1-L2 and L2-L3 and asymmetric left L3-L4 disc space narrowing. Posterolateral bone graft material present. Degeneration bilateral sacroiliac joints and moderate narrowing of the bilateral hip joints. Old fracture deformities of the left superior and inferior pubic rami and right inferior pubic ramus. Nonspecific bowel gas pattern. Procedure Note Janice Talavera MD - 04/02/2023 EXAM: XR SPINE LUMBAR ROUTINE DATE: 04/02/2023 10:31 AM CLINICAL DATA: Patient age: [age] years old. L1-L5 posterior spinal fusion. COMPARISON: No prior comparisons. TECHNICAL INFORMATION: Routine Views: AP, lateral and coned lateral L5-S1 views. INTERPRETATION: Levocurvature of the lumbar spine with apex at L1. Operative changes ofposterior jarred and pedicle screw fixation L1-L5. Hardware appears intact.Lateral wedging of the right lateral wedging of the L2 vertebral body.Approximately 10 mm anterolisthesis of L4 on L5 visualized in the sagittalprojection. Asymmetric right L1-L2 and L2-L3 and asymmetric left L3-L4disc space narrowing. Posterolateral bone graft material present. Degeneration bilateral sacroiliac joints and moderate narrowing of thebilateral hip joints. Old fracture deformities of the left superior andinferior pubic rami and right inferior pubic ramus. Nonspecific bowel gaspattern. IMPRESSION IMPRESSION: 1. Operative changes of posterior jarred and pedicle screw fixation L1-L5with posterolateral bone graft material, grossly negative forpostoperative purposes. Lumbar vertebral body alignment described in moredetail above. 2. Old superior and inferior pubic rami fractures. REPORT SIGNED BY Janice Talavera M.D. Nj Thorne PA-C XRAY ORDERABLE * Extra Tube-SST (Lab Use Only) (04/02/2023 7:28 AM SHUTTLE HAND) Blood 04/02/2023 7:28 AM SHUTTLE HAND 04/02/2023 7:53 AM SHUTTLE HAND Bonita Estrada MD CHEMISTRY ORDERABLE Performing Organization Address City/State/[facility] Co de Phone Number [facility] [address] [place], [place] [id number] * XR C-ARM SPINE (04/01/2023 10:36 AM SHUTTLE HAND) Anatomical Region Laterality Modality Computed Radiogr aphy 04/01/2023 12:3 5 PM SHUTTLE HAND Impressions 04/01/2023 12:37 PM SHUTTLE HAND IMPRESSION: 1. ??Procedural assistance. REPORT SIGNED BY DR. MARCUS JUNE Narrative 04/01/2023 12:37 PM SHUTTLE HAND EXAM: ??XR C-ARM SPINE DATE: ?? 04/01/2023 10:35 AM CLINICAL DATA: ADDITIONAL CLINICAL DATA: COMPARISON: ??None. NUMBER OF VIEWS: 13 FINDINGS: ?? Approximately 28 seconds fluoroscopy. Images demonstrate steps in the placement of multilevel bilateral pedicle screws and interlocking rods. Procedure Note Marcus June MD - 04/01/2023 EXAM: XR C-ARM SPINE DATE: 04/01/2023 10:35 AM CLINICAL DATA: ADDITIONAL CLINICAL DATA: COMPARISON: None. NUMBER OF VIEWS: 13 FINDINGS: Approximately 28 seconds fluoroscopy. Images demonstrate steps in theplacement of multilevel bilateral pedicle screws and interlocking rods. IMPRESSION IMPRESSION: 1. Procedural assistance. REPORT SIGNED BY DR. MARCUS JUNE Isai Foss MD XRAY ORDERABLE * Intubation (04/01/2023 8:15 AM SHUTTLE HAND) Narrative Monika Ireland APRN, CRNA - 04/01/2023 8:15 AM SHUTTLE HAND Monika Ireland APRN, CRNA ? 04/01/2023 ??8:27 AM Intubation Location: OR Procedural Details: Direct Vision Entry Site: Oral Laryngoscope size: 2 Laryngoscope type: Venegas Tube size: 7.0 Maskability: easy and oral airway Ease: easy Cormack-Lehane: grade I - visualization of entire laryngeal aperture (95%) Tube type: Single Lumen Performed by:MEGHAN Post-procedure assessment: BBS and EtCO2 + Cuff inflated: no ETT to lip: 20 cm Chapo Peace DO AN BLOCKS * ABORh Confirm (Lab Use Only) (04/01/2023 6:47 AM SHUTTLE HAND) Group and Rh O Positive 04/01/2023 9:09 AM SHUTTLE HAND [facility] Blood 04/01/2023 6:47 AM SHUTTLE HAND 04/01/2023 7:26 AM SHUTTLE HAND Nj Thorne PA-C BLOOD BANK ORDERA BLE [facility] [id number] [place] [address] * Type and Screen (04/01/2023 6:46 AM SHUTTLE HAND) Group and Rh O Positive 04/01/2023 7:39 AM SHUTTLE HAND [facility] Antibody Screen Negative 04/01/2023 7:39 AM SHUTTLE HAND [facility] Blood 04/01/2023 6:46 AM SHUTTLE HAND 04/01/2023 6:50 AM SHUTTLE HAND Nj Thorne PA-C BLOOD BANK ORDERA BLE Performing Organization Address City/[facility]/ZIP Co de Phone Number [facility] [address] [facility] [place] [address] [facility] [address] [place] [address] * Protime/INR (04/01/2023 6:46 AM SHUTTLE HAND) INR 1.0 0.9 - 1.2 04/01/2023 7:06 AM [facility] Blood 04/01/2023 6:46 AM SHUTTLE HAND 04/01/2023 6:50 AM SHUTTLE HAND Nj Thorne PA-C COAGULATION ORDER ABLE Performing Organization Address [facility] Co de Phone Number [facility] [address] [place] [address] * Partial Thromboplastin Time (04/01/2023 6:46 AM SHUTTLE HAND) PTT 28.8 24.0 - 31.0 SEC. 04/01/2023 7:06 AM [facility] Blood 04/01/2023 6:46 AM SHUTTLE HAND 04/01/2023 6:50 AM SHUTTLE HAND Narrative [facility] - 04/01/2023 7:06 AM SHUTTLE HAND aPTT Therapeutic Reference Ranges: Argatroban protocol: 60 - 85 seconds Bivalirudin protocol: 43 - 71 seconds Nj Thorne PA-C COAGULATION ORDER ABLE Performing Organization Address City/[facility] Co de Phone Number [facility] [address] [facility] [place] [address] * Hematocrit (04/01/2023 6:46 AM SHUTTLE HAND) Hematocrit 37.3 36.0 - 48.0 % 04/01/2023 7:07 AM SHUTTLE HAND [facility] Blood 04/01/2023 6:46 AM SHUTTLE HAND 04/01/2023 6:50 AM SHUTTLE HAND Nj Thorne PA-C HEMATOLOGY ORDERA BLE [facility] [address] [place] [address] * (ABNORMAL) POCT Glucose Meter (04/01/2023 6:12 AM SHUTTLE HAND) GLUCOSE WB METER 105(H) 60 - 100 mg/dL 04/01/2023 6:38 AM [facility] Blood 04/01/2023 6:12 AM SHUTTLE HAND 04/01/2023 6:38 AM SHUTTLE HAND Isai Foss MD LAB POINT OF CARE TE ST RESULTS Performing Organization Address City/[facility]/ZIP Co de Phone Number [facility] [address] [place] [place] [address] from Last 3 Months Advance Directives For more information, please contact: [phone] Latest Code Status on File Code Status Date Activated Date Inactivated Comments Full Code 04/02/2023 1:58 AM 04/03/2023 9:38 PM Question Answer Comments How was code status determined? Physician Abelardo leal Code Status History Code Status Date Activated Date Inactivated Comments Full Code 04/01/2023 5:53 AM 04/01/2023 11:19 AM Question Answer Comments How was code status determined? Physician Abelardo leal Not discussed Care Teams Dag Coater Relationship Specialty Start [place] [address] [address] [place] [address] PCP - General Internal Medicine 04/02/23 Clinic, [facility] [address] [address] [id number] PCP - Primary Care Clinic 04/02/23
--- OUTSIDE RECORDS SUMMARY | 2023-04-05 09:20 | XMS_ITS | Referral Summary ---
Author Name Unknown Organization [facility] Address [address] [place] [id number] Care Team Providers Care Single End Sewer Name Role Phone Carolynn Alvarado MD Primary Care Provider [phone] [facility], [facility] Encounters Date Type Department Care Team Description 04/01/2023 5:52 AM BELT CLEANER - 04/03/2023 3:20 PM [facility] Hospital Encounter [address] [place] [address] [place] [address] Isai Foss MD Lumbar radiculopathy Discharge Disposition: Returning Home/Self Care 04/01/2023 Travel 04/01/2023 7:25 AM BELT CLEANER - 04/01/2023 11:50 AM [facility] Surgery [facility] Operating Room [address] [place] [address] [facility] [place] [address] Isai Foss MD L1-5 POSTERIOR FUSION WITH INSTRUMENTATION WITH NEURO MONITORING 03/28/2023 Prep For Procedure NMR PROVIDER [address] [place] [address] [place] [address] Nj Thorne PA-C 03/26/2023 Travel 03/12/2023 Travel from Last 3 Months Allergies Active Allergy Reactions Criticality Noted Date Comments Lisinopril 03/26/2023 COHEN Medications Medication Sig Dispensed Refills Start Date End Date Status medical supply, miscellaneous (ELECTRICAL BONE GROWTH STIMULATOR)Indicat ions:S/P lumbar fusion Company: [employer] - for home use. 1 each 0 [...] Noted Date Diagnosed Date Lumbar radiculopathy 04/01/2023 Social History Tobacco Use Types Packs/Day Years Used Date Smoking Tobacco: Never Smokeless Tobacco: Never Tobacco Cessation:Counseling Given: Not Answered Alcohol Use Standard Drinks/Week Comments Never 0 (1 standard drink = 0.6 oz pur e alcohol) [facility] Thirstyities Answer Date Recorded In the past 12 months has [facility] [employer], oil, or water [employer] threatened to shut off services in your [...] Sex Assigned at Female 03/11/2023 11:10 AM BELT CLEANER Gender Identity Female 03/11/2023 11:10 AM BELT CLEANER Sexual Orientation Straight 03/11/2023 11 :10 AM BELT CLEANER Last Filed Vital Signs Vital Sign Reading Time Taken Comments Blood Pressure 99/59 04/03/2023 2:30 PM BELT CLEANER Pulse 81 04/03/2023 2:30 PM BELT CLEANER Temperature 36.8 ??C (98.3 ??F) 04/03/2023 2:30 PM CS T Respiratory Rate 18 04/03/2023 2:30 PM BELT CLEANER Oxygen Saturation 96% 04/03/2023 2:30 PM BELT CLEANER Inhaled Oxygen Concentration - - Weight 67.6 kg (149 lb 0.5 oz) 04/01/2023 4:45 P M BELT CLEANER Height 162.6 cm (5' 4) 04/01/2023 4:45 PM BELT CLEANER Body Mass Index 25.58 04/01/2023 4:45 PM BELT CLEANER Plan of Treatment Not on file Medical Devices Implanted Type Area Assembler Surgical Garment Device Identifier Shelf Expiration Date Model / Serial / Lot Cancellous Chips 30cc - [id number] Implanted:Qty : 1 on 04/01/2023 by Isai Foss MD at [facility] N/A: Spine Lumbar [employer] 01/23/2027 [id number] / [id number] / Infuse Med - [id number] Implanted:Qty : 1 on 04/01/2023 by Isai Foss MD at [facility] Prosthetic Implant Non-Specific N/A: Spine Lumbar [employer] Sof[employer]or [employer] 09/14/2024 [id number] / / [id number] 5.5mm Ti Alloy Curved Jarred, 125mm Implanted:Qty : 2 on 04/01/2023 by Isai Foss MD at [facility] Back [id number] / / Description:MFTR: [employer] Procedures Procedure Name Priority Date/Time Associated Diagnosis Comments HEMOGLOBIN Routine 04/03/2023 7:00 AM BELT CLEANER HEMOGLOBIN Timed Procedure 04/02/2023 3:26 PM BELT CLEANER XR SPINE LUMBAR ROUTINE STAT 04/02/2023 10:43 AM BELT CLEANER EXTRA TUBE-SST (LAB USE ONLY) Routine 04/02/2023 7:28 AM BELT CLEANER HEMOGLOBIN Routine 04/02/2023 7:28 AM BELT CLEANER XR C-ARM SPINE STAT 04/01/2023 10:36 AM BELT CLEANER INTUBATION Routine 04/01/2023 8:15 AM BELT CLEANER SPIN BONE AUTOGRFT LOCAL 04/01/2023 7:29 AM BELT CLEANER Degeneration of lumbar intervertebral disc ALLOGRAFT FOR SPINE SURGERY ONLY MORSELIZED 04/01/2023 7:29 AM BELT CLEANER Degeneration of lumbar intervertebral disc INSERT VERT FIX DEV,POST,3-6 * 04/01/2023 7:29 AM BELT CLEANER Degeneration of lumbar intervertebral disc SPINE FUSN,POST TECH,EA ADDNL* 04/01/2023 7:29 AM BELT CLEANER Degeneration of lumbar intervertebral disc ARTHRODESIS POSTERIOR/POSTEROLAT ERAL LUMBAR 04/01/2023 7:29 AM BELT CLEANER Degeneration of lumbar intervertebral disc ABORH CONFIRM (LAB USE ONLY) STAT 04/01/2023 6:47 AM BELT CLEANER HEMATOCRIT STAT 04/01/2023 6:46 AM BELT CLEANER HEMOGLOBIN STAT 04/01/2023 6:46 AM BELT CLEANER TYPE AND SCREEN STAT 04/01/2023 6:46 AM BELT CLEANER PARTIAL THROMBOPLASTIN TIME STAT 04/01/2023 6:46 AM BELT CLEANER PROTIME/INR STAT 04/01/2023 6:46 AM BELT CLEANER POCT GLU METER STAT 04/01/2023 6:12 AM BELT CLEANER from Last 3 Months Results * (ABNORMAL) Hemoglobin (04/03/2023 7:00 AM BELT CLEANER) Only the most recent of4 resultswithin the time period is included. Hemoglobin 8.5(L) 12.0 - 16.0 gm/dL 04/03/2023 7:25 AM BELT CLEANER [facility] Blood 04/03/2023 7:00 AM BELT CLEANER 04/03/2023 7:17 AM BELT CLEANER Nj Thorne PA-C HEMATOLOGY ORDERA BLE Performing Organization Address City/State/[facility] Co de Phone Number [facility] [address] [place] [address] * XR SPINE LUMBAR ROUTINE (04/02/2023 10:43 AM BELT CLEANER) Anatomical Region Laterality Modality Spine Computed Radiogr aphy 04/02/2023 11:2 7 AM BELT CLEANER Impressions 04/02/2023 11:29 AM BELT CLEANER IMPRESSION: 1. Operative changes of posterior jarred and pedicle screw fixation L1-L5 with posterolateral bone graft material, grossly negative for postoperative purposes. Lumbar vertebral body alignment described in more detail above. 2. Old superior and inferior pubic rami fractures. REPORT SIGNED BY Janice Talavera M.D. Narrative 04/02/2023 11:29 AM BELT CLEANER EXAM: ??XR SPINE LUMBAR ROUTINE DATE: 04/02/2023 [...] Tube-SST (Lab Use Only) (04/02/2023 7:28 AM BELT CLEANER) Blood 04/02/2023 7:28 AM BELT CLEANER 04/02/2023 7:53 AM BELT CLEANER Bonita Estrada MD CHEMISTRY ORDERABLE [facility] [address] [id number] * XR C-ARM SPINE (04/01/2023 10:36 AM BELT CLEANER) Anatomical Region Laterality Modality Computed Radiogr aphy 04/01/2023 12:3 5 PM BELT CLEANER Impressions 04/01/2023 12:37 PM BELT CLEANER IMPRESSION: 1. ??Procedural assistance. REPORT SIGNED BY DR. MARCUS JUNE Narrative 04/01/2023 12:37 PM BELT CLEANER EXAM: ??XR C-ARM SPINE DATE: ?? 04/01/2023 [...] XRAY ORDERABLE * Intubation (04/01/2023 8:15 AM BELT CLEANER) Narrative Monika Ireland APRN, CRNA - 04/01/2023 8:15 AM BELT CLEANER Monika Ireland APRN, CRNA ? 04/01/2023 ??8:27 [...] Confirm (Lab Use Only) (04/01/2023 6:47 AM BELT CLEANER) Group and Rh O Positive 04/01/2023 9:09 AM BELT CLEANER [facility] Blood 04/01/2023 6:47 AM BELT CLEANER 04/01/2023 7:26 AM BELT CLEANER Nj Deonna CSHWAB-C BLOOD BANK ORDERA BLE Performing Organization Address [facility] [place] [address] * Type and Screen (04/01/2023 6:46 AM BELT CLEANER) Group and Rh O Positive 04/01/2023 7:39 AM BELT CLEANER [facility] Antibody Screen Negative 04/01/2023 7:39 AM BELT CLEANER [facility] Blood 04/01/2023 6:46 AM BELT CLEANER 04/01/2023 6:50 AM BELT CLEANER Nj Deonna SCHWAB-C BLOOD BANK ORDERA BLE Performing Organization Address [facility] [place] [address] * Protime/INR (04/01/2023 6:46 AM BELT CLEANER) Pathologist [facility] INR 1.0 0.9 - 1.2 04/01/2023 7:06 AM BELT CLEANER [facility] Blood 04/01/2023 6:46 AM BELT CLEANER 04/01/2023 6:50 AM BELT CLEANER Nj SCHWAB-C COAGULATION ORDER ABLE Performing Organization Address [facility] de Phone Number [facility] [address] [place] [address] * Partial Thromboplastin Time (04/01/2023 6:46 AM BELT CLEANER) PTT 28.8 24.0 - 31.0 SEC. 04/01/2023 7:[address] [facility] Blood 04/01/2023 6:46 AM BELT CLEANER 04/01/2023 6:50 AM BELT CLEANER Narrative [facility] - 04/01/2023 7:06 AM BELT CLEANER aPTT Therapeutic Reference Ranges: Argatroban protocol: 60 - 85 seconds Bivalirudin protocol: 43 - 71 seconds Nj Thorne PA-C COAGULATION ORDER ABLE Performing Organization Address [facility] Number [facility] [address] [place] [address] * Hematocrit (04/01/2023 6:46 AM BELT CLEANER) Hematocrit 37.3 36.0 - 48.0 % 04/01/2023 7:[address] [facility] Blood 04/01/2023 6:46 AM BELT CLEANER 04/01/2023 6:50 AM BELT CLEANER Nj Thorne PA-C HEMATOLOGY ORDERA BLE Performing Organization Address [facility] de Phone Number [facility] [address] [place] [address] * (ABNORMAL) POCT Glucose Meter (04/01/2023 6:12 AM BELT CLEANER) GLUCOSE WB METER 105(H) 60 - 100 mg/dL 04/01/2023 6:[address] [facility] Blood 04/01/2023 6:12 AM BELT CLEANER 04/01/2023 6:38 AM BELT CLEANER Isai Foss MD LAB POINT OF CARE TE ST RESULTS [facility] [address] [address] from Last 3 Months Advance Directives For more information, please contact: [phone] Latest Code Status on File Code Status [...] Physician Abelardo leal Not discussed Care Teams Single End Sewer Relationship Specialty [place] [address] [address] [address] PCP - General Internal Medicine 04/02/23 [facility], [facility] [address] [id number] PCP - Primary Care Clinic 04/02/23
--- OUTSIDE RECORDS SUMMARY | 2023-04-05 09:20 | XMS_ITS | Encounter Summary ---
Author Name Unknown Organization [facility] Address [address] [place] [id number] Care Team Providers Care Hand Wrapper Operator Name Role Phone Carolynn Alvarado MD Primary Care Provider [phone] Carolynn Alvarado MD Primary Care Provider [phone] [facility] Unavailable Reason for Referral * (Routine) - Open Specialty Diagnoses / Procedures Referred By Contac t Referred To Contact Procedures Diet: Level 7 Regular Trevon Buenrostro PA-C [address] [address] Referral ID Status Reason Start Date Expiration Date Visits Re quested Visits Authorized [id number] Open 04/03/2023 1 1 INE BILLER * (Routine) - Open Specialty Diagnoses / Procedures Referred By Contac t Referred To Contact Procedures Discharge Instructions Trevon Buenrostro PA-C [address] [address] Referral ID Status Reason Start Date Expiration Date Visits Re quested Visits Authorized [id number] Open 04/03/2023 1 1 INE BILLER * (Routine) - Open Specialty Diagnoses / Procedures Referred By Contac t Referred To Contact Procedures Discharge Instructions Trevon Buenrostro PA-C [address] [address] Referral ID Status Reason Start Date Expiration Date Visits Re quested Visits Authorized [id number] Open 04/03/2023 1 1 INE BILLER * (Routine) - Open Specialty Diagnoses / Procedures Referred By Contac t Referred To Contact Procedures Discharge Instructions Trevon Buenrostro PA-C [address] [address] Referral ID Status Reason Start Date Expiration Date Visits Re quested Visits Authorized [id number] Open 04/03/2023 1 1 INE BILLER * (Routine) - Open Specialty Diagnoses / Procedures Referred By Contac t Referred To Contact Procedures Dressing Change Trevon Buenrostro PA-C [address] [address] Referral ID Status Reason Start Date Expiration Date Visits Re quested Visits Authorized [id number] Open 04/03/2023 1 1 INE BILLER * (Routine) - Open Specialty Diagnoses / Procedures Referred By Contac t Referred To Contact Procedures Dressing Change Trevon Buenrostro PA-C [address] [address] Referral ID Status Reason Start Date Expiration Date Visits Re quested Visits Authorized [id number] Open 04/03/2023 1 1 INE BILLER * (Routine) - Open Specialty Diagnoses / Procedures Referred By Contac t Referred To Contact Procedures Discharge Instructions Trevon Buenrostro PA-C [address] [address] Referral ID Status Reason Start Date Expiration Date Visits Re quested Visits Authorized [id number] Open 04/03/2023 1 1 INE BILLER * (Routine) - Open Specialty Diagnoses / Procedures Referred By Contac t Referred To Contact Procedures Shower Trevon Buenrostro PA-C [address] [address] Referral ID Status Reason Start Date Expiration Date Visits Re quested Visits Authorized [id number] Open 04/03/2023 1 1 INE BILLER * (Routine) - Open Specialty Diagnoses / Procedures Referred By Contac t Referred To Contact Procedures Discharge Instructions Trevon Buenrostro PA-C [address] [address] Referral ID Status Reason Start Date Expiration Date Visits Re quested Visits Authorized [id number] Open 04/03/2023 1 1 INE BILLER * (Routine) - Open Specialty Diagnoses / Procedures Referred By Contac t Referred To Contact Procedures Activity as tolerated Trevon Buenrostro PA-C [address] [address] Referral ID Status Reason Start Date Expiration Date Visits Re quested Visits Authorized [id number] Open 04/03/2023 1 1 INE BILLER * (Routine) - Open Specialty Diagnoses / Procedures Referred By Contac t Referred To Contact Trevon Buenrostro PA-C [address] [address] Surgery), [facility] [place] [facility] [address] [facility] [place] [address] Referral ID Status Reason Start Date Expiration Date Visits Re quested Visits Authorized [id number] Open 04/03/2023 1 1 Question Answer Instructions to follow-up provider f/u appt, patient had difficult pain mgmt in hospital Comments Return to clinic in 3 weeks for post op visit INE BILLER * (Routine) - Open Specialty Diagnoses / Procedures Referred By Contac t Referred To Contact Procedures Temperature >101 (38.3 degrees Celsius) Trevon Buenrostro PA-C [address] [place] [address] Referral ID Status Reason Start Date Expiration Date Visits Re quested Visits Authorized [id number] Open 04/03/2023 1 1 INE BILLER * (Routine) - Open Specialty Diagnoses / Procedures Referred By Contac t Referred To Contact Procedures Severe uncontrolled pain Trevon Buenrostro PA-C [address] [address] Referral ID Status Reason Start Date Expiration Date Visits Re quested Visits Authorized [id number] Open 04/03/2023 1 1 INE BILLER * (Routine) - Open Specialty Diagnoses / Procedures Referred By Contac t Referred To Contact Procedures Numbness/pain in extremity Trevon Buenrostro PA-C [address] [address] Referral ID Status Reason Start Date Expiration Date Visits Re quested Visits Authorized [id number] Open 04/03/2023 1 1 INE BILLER * (Routine) - Open Specialty Diagnoses / Procedures Referred By Contac t Referred To Contact Procedures Difficulty breating, headache, or visual disturbance Trevon Buenrostro PA-C [address] [place] [address] Referral ID Status Reason Start Date Expiration Date Visits Re quested Visits Authorized [id number] Open 04/03/2023 1 1 INE BILLER * (Routine) - Open Specialty Diagnoses / Procedures Referred By Contac t Referred To Contact Procedures Any questions or concerns Trevon Buenrostro PA-C [address] [place] [address] Referral ID Status Reason Start Date Expiration Date Visits Re quested Visits Authorized [id number] Open 04/03/2023 1 1 INE BILLER * (Routine) - Open Specialty Diagnoses / Procedures Referred By Contac t Referred To Contact Julius Ann MD [address] [place] [address] [place] [address] [place] [address] Referral ID Status Reason Start Date Expiration Date Visits Re quested Visits Authorized [id number] Open 04/02/2023 1 1 Question Answer Specify time frame for follow up? 1 Week Instructions to follow-up provider Hospital discharge follow up INE BILLER Reason for Visit * Inpatient Admission (Routine) Specialty Diagnoses / Procedures Referred By Contac t Referred To Contact Diagnoses Degeneration of lumbar intervertebral disc Degeneration of lumbar intervertebral disc [M51.36] Procedures ARTHRODESIS POSTERIOR/POSTEROLATERAL LUMBAR SPINE FUSN,POST TECH,EA ADDNL* INSERT VERT FIX DEV,POST,3-6 * ALLOGRAFT FOR SPINE SURGERY ONLY MORSELIZED SPIN BONE AUTOGRFT LOCAL L1-5 POSTERIOR FUSION WITH INSTRUMENTATION WITH NEURO MONITORING Referral ID Status Reason Start Date Expiration Date Visits Re quested Visits Authorized [id number] 1 1 Encounter Details Date Type Department Care Team (Latest Contact Info) Description 04/01/2023 5:52 AM MACHINE BILLER - 04/03/2023 3:20 PM MACHINE BILLER Hospital Encounter A[address] [facility] [place], [place] [address] Isai Foss MD [address] [facility] [address] [place] [address] Lumbar radiculopathy Discharge Disposition: Returning Home/Self Care Social History Tobacco Use Types Packs/Day Years Used Date Smoking Tobacco: Never Smokeless Tobacco: Never Tobacco Cessation:Counseling Given: Not Answered Alcohol Use Standard Drinks/Week Comments Never 0 (1 standard drink = 0.6 oz pur e alcohol) [facility] Utilities Answer Date Recorded In the past 12 months has th e [employer], [employer], oil, or water [email or web address] threatened to shut off services in your [...] place to sleep or slept in a assisted (including now)? No 04/01/2023 Sex and Gender Information Value Date Recorded Sex Assigned at Female 03/11/2023 11:10 AM MACHINE BILLER Gender Identity Female 03/11/2023 11:10 AM MACHINE BILLER Sexual Orientation Straight 03/11/2023 11 :10 AM MACHINE BILLER documented as of this encounter Last Filed Vital Signs Vital Sign Reading Time Taken Comments Blood Pressure 99/59 04/03/2023 2:30 PM MACHINE BILLER Pulse 81 04/03/2023 2:30 PM MACHINE BILLER Temperature 36.8 ??C (98.3 ??F) 04/03/2023 2:30 PM CS T Respiratory Rate 18 04/03/2023 2:30 PM MACHINE BILLER Oxygen Saturation 96% 04/03/2023 2:30 PM MACHINE BILLER Inhaled Oxygen Concentration - - Weight 67.6 kg (149 lb 0.5 oz) 04/01/2023 4:45 P M MACHINE BILLER Height 162.6 cm (5' 4) 04/01/2023 4:45 PM MACHINE BILLER Body Mass Index 25.58 04/01/2023 4:45 PM MACHINE BILLER documented in this encounter Medications at Time of Discharge Medication Sig Dispensed Refills Start Date End Date amLODIPine (NORVASC) 10 mg oral tablet Take 1 tablet (10 mg) by mouth Daily. 0 03/14/2022 atenolol (TENORMIN) 25 mg oral tablet Take 1 tablet (25 mg) by mouth once daily. 0 03/14/2022 calcium carbonate (TUMS) 200 mg calcium (500 mg) oral chew tabIndications:S/P lumbar fusion Chew 1 tablet (500 mg) twice a day with breakfast and dinner. 180 tablet 3 02/25/2023 desipramine (NORPRAMIN) 25 mg oral tablet Take 1 tablet (25 mg) by mouth Daily. 0 DULoxetine (CYMBALTA) 20 mg oral delayed release capsule 1 capsule (20 mg) once daily. 0 01/27/2023 DULoxetine (CYMBALTA) 60 mg oral delayed release capsule Take 1 capsule (60 mg) by mouth once daily. 0 01/02/2023 ergocalciferol (VITAMIN D2) 1,250 mcg (50,000 unit) oral capsuleIndications:S/P lumbar fusion Take 1 capsule (50,000 Units) by mouth every 7 (seven) days. 12 capsule 3 02/25/2023 famotidine (PEPCID) 20 mg oral tablet Take 1 tablet (20 mg) by mouth once daily. 0 03/14/2022 hydrOXYzine pamoate (VISTARIL) 25 mg oral capsule Take 1 capsule (25 mg) by mouth every 6 (six) hours as needed. 12 capsule 0 04/03/2023 LORazepam (ATIVAN) 0.5 mg oral tablet Take 2 tablets (1 mg) by mouth at bedtime as needed. 0 02/03/2023 medical supply, miscellaneous (ELECTRICAL BONE GROWTH STIMULATOR)Indications: S/P lumbar fusion Company: [employer] - for home use. 1 each 0 02/25/2023 oxyCODONE, immediate release, (ROXICODONE) 5 mg oral tablet Take 1-2 tablets (5-10 mg) by mouth every 6 (six) hours as needed. 35 tablet 0 04/03/2023 pregabalin (LYRICA) 25 mg oral capsule Take 2 capsules (50 mg) by mouth twice a day. 0 08/19/2022 08/19/2023 senna-docusate (SENNA-S) 8.6-50 mg oral tablet Take 1 tablet by mouth twice a day as needed. 60 tablet 0 04/03/2023 tiZANidine (ZANAFLEX) 2 mg oral tablet Take 2 tablets (4 mg) by mouth four times a day. 20 tablet 0 04/03/2023 documented as of this encounter Progress Notes * Seymour Marvin RN - 04/03/2023 3:17 PM CST Michelle Franz [phone] P: Discharge A: Discharged via wheelchair to home at 1513 escorted by director industrial nursing I: Discharge information and arrangements included: review of written discharge instructions, review of purpose and side effects of new medication R:Patient expressed understanding of information. INE BILLER * Julius Ann MD - 04/03/2023 11:42 AM CST HOSPITALIST DIVISION CONSULT PROGRESS NOTE ASSESSMENT & PLAN Michelle Franz, 77 y.o. female, with paroxysmal A-fib, currently not anticoagulated, followed by neurosurgery outpatient has severe stenosis L1-L2, status post multiple microdiscectomy operation at thatlevel, no elective admission for L1-5 posterior spinal fusion with instrumentation. PLAN Status post L1 posterior spinal fusion with instrumentation 04/01/23 Overall doing well. -Postop management, pain management, DVT prophylaxis per surgery History of A-fib, in 2021 Another episode of A-fib where she required cardioversion, February 2023 Mild to moderate aortic insufficiency Dyslipidemia She took Eliquis for a month after cardioversion and then stopped because of cost. Evaluated by cardiology before surgery, as patient is currently in sinus rhythm, recommended Zio monitor for 14 daysafter surgery. Currently patient is not anticoagulated. -Patient already has Zio patch on. Recommended to Zio patch after going home. Recommend follow-up with cardiology outpatient in 2-3weeks. Likely postoperative anemia: Hemoglobin at time of admission was 12. Hemoglobin stable at 8.5. -recommended to start iron pills. Patient would like to buy edba-gky-yryfajw iron pills. 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 Hospital medicine related discharge orders placed in stimulator. Recommend follow-up with PCP in 1 week for hospital discharge follow-up. CHIEF COMPLAINT: Dizziness SUBJECTIVE No acute events overnight. Patient reports pain is okay. Denies chest pain or short of breath. OBJECTIVE BP (!) 90/49 Pulse 75 Temp 98.4 ??F (36.9 ??C) Resp 18 Ht 5' 4 (1.626 m) Wt 67.6 kg (149lb 0.5 oz) SpO2 96% BMI 25.58 kg/m?? Intake/Output Summary (Last 24 hours) at 04/03/2023 1142 Last data filed at 04/03/2023 0117 Gross per 24 hour Intake 1950.91 ml Output -- Net 1950.91 ml GENERAL APPEARANCE: She is awake, alert and in no acute distress. HEENT: Normocephalic, atraumatic. NECK: Supple with no adenopathy. RESPIRATORY: Diminished breath sounds over lung bases; No wheezing, crackles noted. CARDIOVASCULAR: Normal S1, normal S2, regular rhythm GASTROINTESTINAL: Soft, non-tender, normal bowel sounds. EXTREMITIES: no edema Current Facility-Administered Medications: acetaminophen (TYLENOL) tablet 1,000 mg, 1,000 mg, oral, TID, 1,000 mg at 04/03/23 0812 OR acetaminophen (TYLENOL) rectal suppository 650 mg, 650 mg, Rectal, TID, Nj Thorne PA-C amLODIPine (NORVASC) tablet 10 mg, 10 mg, oral, DAILY, Bonita Estrada MD, 10 mg at 04/03/238[address] atenolol (TENORMIN) tablet 25 mg, 25 mg, oral, DAILY, Bonita Estrada MD, 25 mg at 04/03/23810 D50W IV syringe 25-50 mL, 25-50 mL, Intravenous, PRN, Nj Thorne PA-C docusate sodium (COLACE) capsule 200 mg, 200 mg, oral, Twice Daily, Nj Thorne PA-C DULoxetine (CYMBALTA) delayed release capsule 20 mg, 20 mg, oral, DAILY, Bonita Estrada MD, 20 mg at 04/02/231956 DULoxetine (CYMBALTA) delayed release capsule 60 mg, 60 mg, oral, DAILY, Bonita Estrada MD, 60 mg at 04/02/231956 famotidine (PEPCID) tablet 20 mg, 20 mg, oral, DAILY, Bonita Estrada MD, 20 mg at 04/03/23810 glucagon, human recombinant (Glucagen) injection (conc: 1 mg/mL) 1 mg, 1 mg, IntraMUSCULAR, Q 15 MINS PRN, Nj Thorne PA-C HYDROmorphone (DILAUDID) syringe 0.5 mg, 0.5 mg, Intravenous, Q4H PRN, Julius Ann MD, 0.5 mg at 04/02/234 hydrOXYzine HCl (VISTARIL) injection 50 mg, 50 mg, IntraMUSCULAR, Q3H PRN, Nj Thorne PA-C hydrOXYzine pamoate (Vistaril) capsule 50 mg, 50 mg, oral, Q3H PRN, Nj Thorne PA-C, 50 mgat 04/03/23 0237 naloxone (NARCAN) injection 0.1 mg, 0.1 mg, Intravenous, Q1 MINUTE PRN, Nj Thorne PA-C ondansetron (ZOFRAN) injection 4 mg, 4 mg, Intravenous, Q8H PRN OR ondansetron (ZOFRAN) disintegrating tablet 4 mg, 4 mg, oral, Q8H PRN, Nj Thorne PA-C, 4 mg at 04/03/23 0240 oxyCODONE (immediate release) (ROXICODONE) tablet 5-10 mg, 5-10 mg, oral, Q4H PRN, Shayne Thorne PA-C, 10 mg at 04/03/23 1023 potassium chloride 20 mEq in D5W-NS IV infusion 1000 mL, , Intravenous, CONTINUOUS, Nj Thorne PA-C, Stopped at 04/02/23 0812 prochlorperazine (COMPAZINE) injection 10 mg, 10 mg, Intravenous, Q6H PRN OR prochlorperazine (COMPAZINE) tablet 10 mg, 10 mg, oral, Q6H PRN, Nj Thorne PA-C prochlorperazine (COMPAZINE) rectal suppository 25 mg, 25 mg, Rectal, Q12H PRN, Nj Thorne PA-C tiZANidine (ZANAFLEX) tablet 2-4 mg, 2-4 mg, oral, Q6H PRN, Nj Thorne PA-Deonna, 4 mg at 04/03/23 1023 LABS Recent Labs 04/01/23 0646 04/02/23 0728 04/02/23 1526 04/03/23 0700 HEMOGLOBIN 12.4 9.0* 8.3* 8.5* HEMATOCRIT 37.3 -- -- -- Recent Labs 04/01/23 0646 INR 1.0 PTT 28.8 No Lab Results Found (last 72 hours) Invalid input(s): LACTATE ABG: No Lab Results Found (last 72 hours) VBG: No Lab Results Found (last 72 hours) Invalid input(s): O2SV Micro: No results found for this visit on 04/01/23. Surgical/Procedure Site Middle;Lower Back (Active) Incision Date/Incision Time: 04/01/23 0851 Incision Type: Incision Orientation: Middle;Lower Location: Back Skin Condition Eczema Right Sacrum (Active) First Observed/Origin Date/First Observed/Origin Time: 04/01/23 0621 Skin Condition Type: Eczema Orientation: Right Location: Sacrum Wound Observance : Prior to Admission Skin Condition Other (Comment) Anterior;Right Ankle (Active) First Observed/Origin Date/First Observed/Origin Time: 04/01/23 1650 Skin Condition Type: (c) Other(Comment) Orientation: Anterior;Right Location: Ankle Wound Observance : Prior to Admission Julius Ann MD [facility] Medicine INE BILLER * Larry Carrasco PT - 04/03/2023 9:37 AM CST Physical Therapy PT orders received and acknowledged. Greeted pt at bedside this morning, pt emotional and reportinghigh pain levels along with distress regarding upcoming discharge. Pt declining PT at this time, reporting she has a walker at home, 3 TIM, and available assist from her daughter who lives very closeby. Operating Engineer attempted to encourage pt to participate in evaluation in order to full assess pt's ability to return home safely, pt declined. PT will continue to follow, plan to re-attempt PT evaluationat another time. Larry Carrasco, PT, DPT INE BILLER * Trevon Buenrostro PA-C - 04/03/2023 8:38 AM CST Neurosurgery Progress Note Date of service: 04/03/2023 Assessment POD#2 sp L1-5 POSTERIOR SPINAL FUSION WITH INSTRUMENTATION, REPAIR OF INCIDENTAL DURAL RENT Plan: D/c pending pt/ot recs, pain management Bowel regimen Pain management, okay for iv dilaudid for breakthrough pain. ADAT D/C okay from our perspective, HM signed off Subjective: Patient reports pain was well controlled last night and this morning. She has not required further IV pain medication this morning. She reports she is ready to get out of this place. She reports she has robust support at home. She denies interval change including nausea, vomiting, increased pain,increased numbness, or increased weakness. She reports there is some groin numbness worse on the right side that has diminished. Objective: Vitals - BP 131/72 Pulse 91 Temp 98.2 ??F (36.8 ??C) Resp 17 Ht 5' 4 (1.626 m) Wt 67.6 kg (149 lb0.5 oz) SpO2 91% BMI 25.58 kg/m?? Temp (24hrs), Av.5 ??F (36.9 ??C), Min:98.2 ??F (36.8 ??C), Max:98.9 ??F (37.2 ??C) Physical Exam - A&Ox4, labile mood General: in no acute distress Incision: clean, dry and intact; Steri strips in place Respiratory: Breathing unlabored Abdomen: no distention noted Strength: ACOSTA 5/5 iliopsoas, 5/5 quadriceps, 5/5 hamstrings, 5/5 anterior tibialis, 5/5 extensor hallucis longus, and 5/5 gastrocnemius. Sensation intact in dermatomal distribution to BLE no Hyperreflexia bilateral no Babinski's bilateral no Ankle Clonus bilateral Trevon Buenrostro PA-C 8:39 AM [facility] Office: [phone] INE BILLER * Daisha Kam RN - 04/03/2023 5:51 AM CST Med-Surg Care Progression Note Type: Admission summary Length of stay: 2 days Code Status: Full Code Primary Problem: POD # 2: L1-5 POSTERIOR FUSION WITH INSTRUMENTATION WITH NEURO MONITORING. Summary: Pt has history of A fib and pt is not anticoagulant as of current. Cardiology recommendingZio monitor (patch) for 14 days after surgery per MD note. F- Feeding & Fluids: Regular diet with thin liquids. A- Analgesic & Anticoagulation: Comfort Goal: Numeric, Verbal, Faces: 4 - Moderate Analgesic PRN Oxycodone, vistaril and scheduled Tylenol. Anticoagulation/DVT prevention & plan SCDs S- Skin: Noel Subcategory Concern(s): Sensory Perception: No Impairment Moisture: Rarely Moist Activity: Walks Occasionally Activity Interventions: Reposition every 2 hours Nutrition: Excellent Nutrition Interventions: Calorie intake Mobility: Slightly Limited Mobility Interventions: Turning every 2 hrs Friction and Shear: No Apparent Problem Total Noel Score: 21: Dressing on pt back CD&I T- Telemetry: Rhythm: Sinus Rhythm Ectopy: Premature Ventricular Contraction No tele E- Emotional & Neuro: Participating in cares Neuro Alert and Oriented R- Respiratory: On room air H- Head OUT of Bed & Activity: Activate Fall Alert? (Enter 1 or 0): 1 Pivot with A X 1 to bedside commode. Early mobility Phase 0: PROM: (not recorded) U- Urologic/bowel: No data recorded Voiding No BM G- Glycemic Control: Not applicable T- Treatment: Pain management, mobility, PT/OT,abx I- Invasive Devices: PIVx2, D- Discharge: TBD INE BILLER * Tamy Sosa RN - 04/02/2023 10:30 PM CST [id number] BP soft this shift, 500cc NS Bolus given with improvement. Pt c/o back pain, scheduled tylenol and PRN Oxycodone given. Pt does not want Vistaril. Zanaflex available at 2300. Pt frequently asking forIV dilaudid. Declining scheduled bowel meds. Up to [facility] with LSO and walker Ax1, was able to walk around room SBA without any limitations, gait slow but steady. Needs to wok with PT. Tamy Sosa RN INE BILLER * oRs Landis MD - 04/02/2023 8:08 PM CST BRIEF CROSS COVER NOTE Paged by bedside nursing regarding hypotension, 91/52, MAP 65. Plan: NS 500mL bolus ordered Ros Landis MD INE BILLER * Seymour Marvin, RN - 04/02/2023 4:01 PM CST Med-Surg Care Progression Note Type: Shift to shift Summary Length of stay: 1 days Code Status: Full Code Primary Problem: Lumbar radiculopathy 04/01 L1-5 POSTERIOR FUSION WITH INSTRUMENTATION WITH NEURO MONITORING Summary: Doing well. 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 Up to bathroom few times. Needs encouragement attimes. Garrett removed this evening. Due to Void. Dressing C/D/I. CMS intact. Placed on tele for a hxof A-fib. Been NSR today. Eating and drinking well. No N/V/D. IVF dc'd. X-ray done. Seen by NS and HM. A-1 with a brace when OOB. Daughter in room. Update given. F- Feeding & Fluids: Regular diet with thin liquids. Off IVF. A- Analgesic & Anticoagulation: Comfort Goal: Numeric, Verbal, Faces: 4 - Moderate Analgesic Back pain well managed with prn dilaudid, oxycodone, vistaril and scheduled tylenol. Anticoagulation/DVT prevention & plan SCDs S- Skin: Noel Subcategory Concern(s): Sensory Perception: No Impairment Moisture: Rarely Moist Activity: Walks Occasionally Activity Interventions: Reposition every 2 hours Nutrition: Adequate Nutrition Interventions: Calorie intake Mobility: Slightly Limited Mobility Interventions: Turning every 2 hrs Friction and Shear: No Apparent Problem Total Noel Score: 20: Dressing on pt back CD&I T- Telemetry: Rhythm: Sinus Rhythm Ectopy: None Placed on tele on 04/02 for hx of a-fib. No calls today. E- Emotional & Neuro: Participating in cares Neuro Alert and Oriented R- Respiratory: On room air H- Head OUT of Bed & Activity: Activate Fall Alert? (Enter 1 or 0): 1 Up to BR. Pt has aspen LSO in her room. Brace on when pt out off bed. Early mobility Phase 1: PROM: (not recorded) U- Urologic/bowel: Garrett removed this evening. Due to void. G- Glycemic Control: Not applicable T- Treatment: Routine post-op cares. I- Invasive Devices: PIVx2, D- Discharge: Home possibly on 04/03. Dtr will transport. INE BILLER * Juanita Levin, PT - 04/02/2023 11:49 AM CST Physical Therapy Orders received and acknowledged. Attempted to see pt this AM, however she reported feeling quite wobbly when coming back from x-ray which she related to A-fib. Pt requested to rest in bed and have therapy check back later today following cardiac check in. Will attempt to see pt later today as schedule allows. Thank you. ADDENDUM Attempted to see pt again at 1425, shortly after receiving pain medication however pt again declined stating that she had muscle spasms and became dizzy earlier with mobility. Educated on role of PT and benefits of mobility, pt requesting therapist return in 30-45 minutes. Unlikely that therapist will be able to return for a third time today. Will attempt again tomorrow. INE BILLER * Julius nAn MD - 04/02/2023 10:49 AM CST HOSPITALIST DIVISION CONSULT PROGRESS NOTE ASSESSMENT & PLAN Michelle Franz, 77 y.o. female, with paroxysmal A-fib, currently not anticoagulated, followed by neurosurgery outpatient has severe stenosis L1-L2, status post multiple microdiscectomy operation at thatlevel, no elective admission for L1-5 posterior spinal fusion with instrumentation. PLAN Status post L1 posterior spinal fusion with instrumentation 04/01/23 POD#1. Overall doing well. Patient reports pain not adequately controlled. -Postop management, pain management, DVT prophylaxis per surgery History of A-fib, in 2021 Another episode of A-fib where she required cardioversion, February 2023 Mild to moderate aortic insufficiency Dyslipidemia She took Eliquis for a month after cardioversion and then stopped because of cost. Evaluated by cardiology before surgery, as patient is currently in sinus rhythm, recommended Zio monitor for 14 daysafter surgery. Currently patient is not anticoagulated. -Zio patch ordered in discharge navigator. Recommend follow-up with cardiology outpatient in 3 to 4weeks. Likely postoperative anemia: Hemoglobin at time of admission was 12. Today hemoglobin 9.0 -Repeat hemoglobin ordered this afternoon. 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 Hospital medicine related discharge orders placed in stimulator. Recommend follow-up with PCP in 1 week for hospital discharge follow-up. CHIEF COMPLAINT: Dizziness SUBJECTIVE Patient reports dizziness when she went for x-ray this morning. Otherwise denies chest pain or short of breath. Reports pain in her back is not well-controlled. Daughter present at bedside. OBJECTIVE BP 134/78 Pulse 90 Temp 98.4 ??F (36.9 ??C) Resp 17 Ht 5' 4 (1.626 m) Wt 67.6 kg (149 lb0.5 oz) SpO2 93% BMI 25.58 kg/m?? Intake/Output Summary (Last 24 hours) at 04/02/2023 1050 Last data filed at 04/02/2023 1000 Gross per 24 hour Intake 1840 ml Output 1100 ml Net 740 ml GENERAL APPEARANCE: She is awake, alert and in no acute distress. HEENT: Normocephalic, atraumatic. NECK: Supple with no adenopathy. RESPIRATORY: Diminished breath sounds over lung bases; No wheezing, crackles noted. CARDIOVASCULAR: Normal S1, normal S2, regular rhythm GASTROINTESTINAL: Soft, non-tender, normal bowel sounds. EXTREMITIES: no edema Current Facility-Administered Medications: acetaminophen (TYLENOL) tablet 1,000 mg, 1,000 mg, oral, TID, 1,000 mg at 04/02/23 0808 OR acetaminophen (TYLENOL) rectal suppository 650 mg, 650 mg, Rectal, TID, Nj Thorne PA-C amLODIPine (NORVASC) tablet 10 mg, 10 mg, oral, DAILY, Bonita Estrada MD, 10 mg at 04/02/23 0808 atenolol (TENORMIN) tablet 25 mg, 25 mg, oral, DAILY, Bonita Estrada MD, 25 mg at 04/02/23 0808 D50W IV syringe 25-50 mL, 25-50 mL, Intravenous, PRN, Nj Thorne PA-C docusate sodium (COLACE) capsule 200 mg, 200 mg, oral, Twice Daily, Nj Thorne PA-C DULoxetine (CYMBALTA) delayed release capsule 20 mg, 20 mg, oral, DAILY, Bonita Estrada MD, 20 mg at 04/02/23 0808 DULoxetine (CYMBALTA) delayed release capsule 60 mg, 60 mg, oral, DAILY, Bonita Estrada MD, 60 mg at 04/02/23 0808 famotidine (PEPCID) tablet 20 mg, 20 mg, oral, DAILY, Bonita Estrada MD, 20 mg at 04/02/23 0808 glucagon, human recombinant (Glucagen) injection (conc: 1 mg/mL) 1 mg, 1 mg, IntraMUSCULAR, Q 15 MINS PRN, Nj Thorne PA-C HYDROmorphone (DILAUDID) syringe 0.2-0.4 mg, 0.2-0.4 mg, Intravenous, Q4H PRN, Ros Landis MD, 0.4 mg at 04/02/23 0339 hydrOXYzine HCl (VISTARIL) injection 50 mg, 50 mg, IntraMUSCULAR, Q3H PRN, Nj Thorne PA-C hydrOXYzine pamoate (Vistaril) capsule 50 mg, 50 mg, oral, Q3H PRN, Nj Thorne PA-C, 50 mgat 04/01/23 2128 naloxone (NARCAN) injection 0.1 mg, 0.1 mg, Intravenous, Q1 MINUTE PRN, Nj Thorne PA-C ondansetron (ZOFRAN) injection 4 mg, 4 mg, Intravenous, Q8H PRN OR ondansetron (ZOFRAN) disintegrating tablet 4 mg, 4 mg, oral, Q8H PRN, Nj Thorne PA-C oxyCODONE (immediate release) (ROXICODONE) tablet 5-10 mg, 5-10 mg, oral, Q4H PRN, Shayne Thorne PA-Deonna, 10 mg at 04/02/23 1020 potassium chloride 20 mEq in D5W-NS IV infusion 1000 mL, , Intravenous, CONTINUOUS, Nj Thorne PA-C, Last Rate: 50 mL/hr at 04/01/232021, New Bag at 04/01/232021 prochlorperazine (COMPAZINE) injection 10 mg, 10 mg, Intravenous, Q6H PRN OR prochlorperazine (COMPAZINE) tablet 10 mg, 10 mg, oral, Q6H PRN, Nj Thorne PA-C prochlorperazine (COMPAZINE) rectal suppository 25 mg, 25 mg, Rectal, Q12H PRN, Nj Thorne PA-C tiZANidine (ZANAFLEX) tablet 2-4 mg, 2-4 mg, oral, Q6H PRN, Nj Thorne PA-C, 4 mg at 04/02/23 0807 LABS Recent Labs 04/01/23 0646 04/02/23 0728 HEMOGLOBIN 12.4 9.0* HEMATOCRIT 37.3 -- Recent Labs 04/01/23 0646 INR 1.0 PTT 28.8 No Lab Results Found (last 72 hours) Invalid input(s): LACTATE ABG: No Lab Results Found (last 72 hours) VBG: No Lab Results Found (last 72 hours) Invalid input(s): O2SV Micro: No results found for this visit on 04/01/23. Surgical/Procedure Site Middle;Lower Back (Active) Incision Date/Incision Time: 04/01/23 0851 Incision Type: Incision Orientation: Middle;Lower Location: Back Skin Condition Eczema Right Sacrum (Active) First Observed/Origin Date/First Observed/Origin Time: 04/01/23 0621 Skin Condition Type: Eczema Orientation: Right Location: Sacrum Wound Observance : Prior to Admission Skin Condition Other (Comment) Anterior;Right Ankle (Active) First Observed/Origin Date/First Observed/Origin Time: 04/01/23 1650 Skin Condition Type: (c) Other(Comment) Orientation: Anterior;Right Location: Ankle Wound Observance : Prior to Admission Julius Ann MD [facility] Medicine INE BILLER * Trevon Buenrostro PA-C - 04/02/2023 9:02 AM CST Neurosurgery Progress Note Date of service: 04/02/2023 Assessment POD#1 sp L1-5 POSTERIOR SPINAL FUSION WITH INSTRUMENTATION, REPAIR OF INCIDENTAL DURAL RENT Plan: D/c pending pt/ot recs, pain management Bowel regimen Pain management, okay for iv dilaudid for breakthrough pain. ADAT D/C pending pain control and PT recommendations. Will check back today. Subjective: Patient presents with daughter. Her main concern is continued pain today which is slightly improvedfrom yesterday after surgery at the incision site. She mentions the pain she experienced prior to surgery continues and is possibly slightly worse today than before surgery. She understands this may be partly due to inflammation in the area from surgery. She denies new numbness, tingling, or weakness in the BLE. She denies incontinence of stool. She denies nausea, vomiting, headaches, other new neurologic deficit. Objective: Vitals - BP 134/78 Pulse 90 Temp 98.4 ??F (36.9 ??C) Resp 17 Ht 5' 4 (1.626 m) Wt 67.6 kg (149 lb0.5 oz) SpO2 93% BMI 25.58 kg/m?? Temp (24hrs), Av.1 ??F (36.7 ??C), Min:97.9 ??F (36.6 ??C), Max:98.4 ??F (36.9 ??C) Physical Exam - A&Ox4, awake, pleasant General: in no acute distress Incision: clean, dry and intact; Respiratory: Breathing unlabored Abdomen: no distention noted Strength: ACOSTA 5/5 iliopsoas, 4-/5 quadriceps, 5/5 hamstrings, 5/5 anterior tibialis, 5/5 extensor hallucis longus, and 5/5 gastrocnemius bilaterally. Reflex: no Hyperreflexia bilateral no Babinski's bilateral no Ankle Clonus bilateral Brisk reflex on left patella Sensory: Mildly reduced sensation to lateral thigh on left leg. Otherwise WNL. Trevon Buenrostro PA-C 12:32 PM [facility] Office: [phone] INE BILLER * Kunal Morrow RN - 04/02/2023 2:48 AM CST Med-Surg Care Progression Note Type: Admission summary Length of stay: 1 days Code Status: Full Code Primary Problem: Lumbar radiculopathy Summary:L1-5 posterior spinal fusion with instrumentation, repair of incidental dural rent done yesterday. Pt has history of A fib and pt is not anticoagulant as of current. Cardiology recommending Zio monitor (patch) for 14 days after surgery per MD note,HTN meds will restart this morning. F- Feeding & Fluids: Regular dirt with thin liquids. IVF @ 50mL A- Analgesic & Anticoagulation: Comfort Goal: Numeric, Verbal, Faces: 4 - Moderate Analgesic Gave prn dilaudid, oxycodone, vistaril and scheduled tylenol. Dilaudid 0.4mg was effective, Anticoagulation/DVT prevention & plan SCDs S- Skin: Noel Subcategory Concern(s): Sensory Perception: No Impairment Moisture: Rarely Moist Activity: Walks Occasionally Activity Interventions: Reposition every 2 hours Nutrition: Adequate Nutrition Interventions: Calorie intake Mobility: Slightly Limited Mobility Interventions: Turning every 2 hrs Friction and Shear: No Apparent Problem Total Noel Score: 20: Dressing on pt back CD&I T- Telemetry: Rhythm: Sinus Rhythm Ectopy: None No tele E- Emotional & Neuro: Participating in cares Neuro Alert and Oriented R- Respiratory: On room air H- Head OUT of Bed & Activity: Activate Fall Alert? (Enter 1 or 0): 1 Not OOB this shift. Pt has [place] LSO in her room. Brace on when pt out off bed. Early mobility Phase 0: PROM: (not recorded) U- Urologic/bowel: No data recorded Voiding via garrett, No BM G- Glycemic Control: Not applicable T- Treatment: Pain management, mobility, PT/OT,abx I- Invasive Devices: PIVx2, garrett D- Discharge: TBD INE BILLER * Bonita Estrada MD - 04/01/2023 7:37 PM CST Images from the original note were not included. HOSPITALIST DIVISION PROGRESS NOTE CHIEF COMPLAINT: Postsurgical pain. SUBJECTIVE She is doing well, discussed with her about her home medication, already took Norflex for left Alamfor today. OBJECTIVE Vitals: 04/01/23 1745 04/01/23 1800 04/01/23 1830 04/01/23 1900 BP: 126/65 117/75 123/71 126/70 Pulse: 81 78 74 77 Resp: Temp: SpO2: 95% 95% 98% 97% Weight: Height: Intake/Output Summary (Last 24 hours) at 04/01/2023 1937 Last data filed at 04/01/2023 1520 Gross per 24 hour Intake 1700 ml Output 250 ml Net 1450 ml GENERAL APPEARANCE: She is awake, alert and in no acute distress. HEENT: Head - Normocephalic, atraumatic. Eyes - Normal lids and conjuntivae, PERRLA, EOMs intact. Oropharynx - Oral mucosa and pharynx normal, moist mucous membranes. NECK: Supple with no adenopathy. RESPIRATORY: Lungs clear to auscultation bilaterally. CARDIOVASCULAR: Normal S1, normal S2, regular rhythm, without murmur. GASTROINTESTINAL: Soft, non-tender, normal bowel sounds. SKIN: Intact, warm, dry. No rashes or lesions. No mottling. NEUROLOGIC: Alert and oriented, moves all extremities. Non-focal exam. EXTREMITIES: Distal Pulses are palpable, no edema. Brisk capillary refill present. [place] present Results for orders placed or performed during the hospital encounter of 04/01/23 (from the past 24 hour(s)) POCT Glucose Meter Result Value Ref Range GLUCOSE WB METER 105 (H) 60 - 100 mg/dL Protime/INR Result Value Ref Range INR 1.0 0.9 - 1.2 Partial Thromboplastin Time Result Value Ref Range PTT 28.8 24.0 - 31.0 SEC. Type and Screen Result Value Ref Range Group and Rh O Positive Antibody Screen Negative Hemoglobin Result Value Ref Range Hemoglobin 12.4 12.0 - 16.0 gm/dL Hematocrit Result Value Ref Range Hematocrit 37.3 36.0 - 48.0 % ABORh Confirm (Lab Use Only) Result Value Ref Range Group and Rh O Positive Additional comments: I reviewed the patient's new clinical lab test results. I reviewed the patient's medications. Surgical/Procedure Site Middle;Lower Back (Active) Incision Date/Incision Time: 04/01/23 0851 Incision Type: Incision Orientation: Middle;Lower Location: Back Skin Condition Eczema Right Sacrum (Active) First Observed/Origin Date/First Observed/Origin Time: 04/01/23 0621 Skin Condition Type: Eczema Orientation: Right Location: Sacrum Wound Observance : Prior to Admission Skin Condition Other (Comment) Anterior;Right Ankle (Active) First Observed/Origin Date/First Observed/Origin Time: 04/01/23 1650 Skin Condition Type: (c) Other(Comment) Orientation: Anterior;Right Location: Ankle Wound Observance : Prior to Admission Patient Vitals for the past 120 hrs: Weight 04/01/23 1645 67.6 kg (149 lb 0.5 oz) Principal Problem: Lumbar radiculopathy Surgical procedure L1-5 POSTERIOR SPINAL FUSION WITH INSTRUMENTATION, REPAIR OF INCIDENTAL DURAL RENT ASSESSMENT; She is 77 years old with paroxysmal A-fib, currently not anticoagulated, followed by neurosurgery outpatient has severe stenosis L1-L2, status post multiple microdiscectomy operation at that level, no elective admission for L1-5 posterior spinal fusion with instrumentation. PLAN Status post L1 posterior spinal fusion with instrumentation POD#0 Managed by surgery History of A-fib, in 2021 Another episode of A-fib where she required cardioversion, February 2023 Mild to moderate aortic insufficiency Dyslipidemia She took Eliquis for a month after cardioversion and then stopped because of cost. Evaluated by cardiology before surgery, as patient is currently in sinus rhythm, recommended Zio monitor for 14 days after surgery. Currently patient is not anticoagulated. Hypertension; Restarted atenolol and Norvasc tomorrow, already took medication this morning Chronic pain; Continue Cymbalta Code: Full Communication: Nurse GI prophylaxis. None DVT prophylaxis: Surgery Disposition: Per surgery Access. [facility] Service INE BILLER * Janice Arriaza RN - 04/01/2023 6:45 PM CST P. Admission A. Condition on Admit: alert, vital signs stable and WNL.. Patient/Family Concerns: Patient expressed concern about pain relief and Plan for therapies and getting up . I. Initial Interventions included: Unit and plan of care, what to expect this evening and tomorrow . Orientation to Unit: Patient oriented to how to call for help, name of assigned acute care physical therapist, initialphysician orders, hourly rounding procedures, belongings checklist, unit and plan of care. R. Patient expressed understanding of information.. Janice Arriaza RN INE BILLER * Isaac Buenrostro - 04/01/2023 4:43 PM CST [facility] [phone] Patient seen in room today for fitting of an [place] LSO. Brace was fit, the use and care was covered, Overall fit of the brace after I finished looks good. Patient to follow wearing parameters set by ordering provider. Please reach out with any further questions or concerns. Isaac Ying/KERA C/LOF INE BILLER * Jolene Guzmán - 04/01/2023 11:11 AM CST S: Infection/Isolation Review B: Patient with history of MDRO requires isolation to prevent transmission in the healthcare setting A: Patient meets facility clearing protocol for MRSA R: Discontinue Contact Precautions. Manage cares using Standard Precautions. Infection Prevention [id number] INE BILLER documented in this encounter Consult Notes * Mariia Reyes OT - 04/02/2023 9:50 AM CST Occupational Therapy Acute Evaluation Patient Name: Michelle Franz Today's Date: 04/02/2023 Admission Date: 04/01/2023 ASSESSMENT/PLAN/RECOMMENDATIONS Assessment/Plan/Recommendations OT Assessment Results: Impaired ADLs, Impaired IADLs, Impaired balance, Impaired functional mobility, Impaired endurance Strengths: Prior level of function, Good family support, Patient motivation, Patient cooperation, Ambulatory, Good strength Limitations/Discharge Barriers: Age, Lives alone, Pain, Current medical status, Limited mobility, Needs assist with ADL, Decreased balance, Decreased activity tolerance Rehab Potential: Good OT Frequency: No further acute OT needed Discharge Support Recommendations: Is safe to discharge to previous living situation with prior level of assist/support Requires assist with the following IADLs: Meal prep, Homemaking, Driving Post Acute Therapy Needs: No OT needs OT Plan Comments: Patient is a 77 year old female s/p L1-5 posterior spinal fusion with instrumentation, repair of incidental dural rent done. At baseline, patient resides in a mobile home, alone. Ind with ADLs/IADLs, daughter resides across the street. Today, patient demonstrates a good understanding and follow through of spinal precautions. Demosntrates donning LSO and footwear with set up assist at edge of bed. Patient completes G/H standing at sink with SBA. Provided SBA with bed mobility and STS, ambulates short ADL distance sin room with SBA and FWW. Unable to progress to household distances due to pain. Anticipate patient is safe to discharge home when medically stable with increasedassist for heavier IADls including complex meals, cleaning, laundry and driving. Reports daughter lives 30 feet away and works from home; able to receive support from dtr and teenage granddaughter at discharge. No further acute care OT indicated. INPATIENT REHAB FACILITY CANDIDATE Inpatient Rehabilitation Facility Candidate Appropriate for Acute Inpatient Rehab?: No GENERAL General Visit Type: Initial Evaluation Diagnosis: Lumbar radiculopathy Admission/Diagnosis Details: s/p L1-5 posterior spinal fusion with instrumentation, repair of incidental dural rent done yesterday. Pertinent Past Medical History: None listed on file Patient Seen In: Room Family/Caregiver Present: No Wild Life Photographer Used?: NA Hearing: Within Functional Limits Lines and Tubes: Garrett Catheter PRECAUTIONS Precautions Devices/Equipment Required: Lumbar Spine Orthosis Precautions: Spinal SAFETY INTERVENTIONS Safety Interventions Fall Risk?: Yes Safety Interventions/Patient Disposition: Standard interventions, [place] sitter on, Seated positioning system in place, In chair, Call light in hand, All needs within reach, Notified nursing staff PAIN Patient complained of 10/10 pain in back HOME LIVING Home Setup Type of Home: Mobile Home Lives With: Alone Home Layout: One level Home Entry: Stairs to enter with rails Rails: Unilateral Number of stairs: 3 Comment: Patient reports her daughter and granddaughter live 30 steps away. Both are supportive, daugher works from home. 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 UPPER EXTREMITY ASSESSMENTS ROM RUE ROM: Functional LUE ROM : Functional Strength RUE Strength: Functional LUE Strength: Functional AM-PAC Outcome Measure 6 Clicks Daily ADL AM-PAC Putting on and taking off regular lower body clothing?: A Little Bathing (including washing, rinsing, drying)?: A Little Toileting, which includes using toilet, bedpan or urinal?: A Little Putting on and taking off regular upper body clothing?: A Little Taking care of personal grooming such as brushing teeth?: None Eating meals?: None AM-PAC Daily Activity Raw Score: 20 AM-PAC Daily Activity CMS 0-100% Score: 38.32 AM-PAC Daily Activity t-Scale Score: 42.03 The following scores are predictive of discharge disposition during acute hospitalization: Home= 20.1; Home with Home Health= 17.9; TCU=14; IRF=13.6; LTACH=11.5 Please refer to narrative for assessment of functional performance and discharge recommendations asscores may not always reflect mobility, cognitive aspects of performance or instrumental activitiesof daily living (IADLs) CURRENT ADL/IADL STATUS Current ADL Status Grooming Assistance: SBA (To complete oral hygiene in standing.) UE Dressing Assistance: Set-up (Following review of doffing/donning LSO in seated position.) LE Dressing Assistance: Set-up (Doffs/dons socks and slip on shoes in figure four stance [facility] set up assist.) FUNCTIONAL MOBILITY Bed Mobility Scooting: SBA Supine to Sit: SBA Dangling: SBA Bed Mobility Comments: HOB raised to simulte home environment. Demonstrates recall of log roll technique. Functional Transfers Sit to Stand: SBA Stand to Sit: SBA Functional Mobility Functional Mobility: Patient ambulated ADL distances in room with initial CGA progressing to SBA with FWW. ACTIVITY TOLERANCE Activity Tolerance Endurance: Participates 20-30 min of therapy session PATIENT EDUCATION Patient Education Patient Education: Role of OT, Plan of care, Discharge recommendations, Weight bearing precautions,ROM precautions TIME SPENT WITH PATIENT OT Timed Code Treatment Minutes OT Evaluation: 15 OT Self-Care/Home Management: 18 OT Total Minutes Spent with Patient Total Minutes Spent With Patient (billable): 33 Minutes GOALS Time Frame Short term goals target date: 04/02/23 [facility] goals target date: 04/02/23 Patient/Family Participation in Goal Setting Patient participated in goal setting: Yes Patient goal preference: less pain STG Grooming Patient will complete daily grooming and light hygiene task: while standing at the sink, with contact guard Outcome: Goal Met STG UE Dressing Patient will dress upper body donning/doffing: brace/orthotic, with contact guard Outcome: Goal Met STG LE Dressing Patient will dress lower body donning/doffing: socks, shoes, with contact guard Outcome: Goal Met STG Other As a method to improve independence with ADL/IADLs pt will: demonstrate/verbalize an understanding of spinal prcautiosn and bracing during ADLs and functional transfers. Outcome: Goal Met Talent Management Specialist Goals Patient will complete ADLs including: feeding, hygiene/grooming, dressing, toileting, with set-up/supervision Outcome: Goal Met INE BILLER documented in this encounter Nursing Notes * Seymour Marvin RN - 04/03/2023 9:12 AM CST Problem: Pain - Acute Goal: Exhibits reduction in pain to an acceptable level of comfort Outcome: Ongoing Problem: Mobility - Impaired Goal: Demonstrates ability to perform physical activity independently or with assistive devices as needed Outcome: Ongoing INE BILLER * Daisha Kam RN - 04/03/2023 1:17 AM CST Problem: Pain - Acute Goal: Exhibits reduction in pain to an acceptable level of comfort Outcome: Met this shift Problem: Respiratory Status - Altered, Actual or Risk of Goal: Exhibits no signs or symptoms of respiratory distress Outcome: Met this shift Problem: Falls/Injury-Risk of Goal: Absence of Falls/Injury Outcome: Met this shift INE BILLER * Seymour Marvin RN - 04/02/2023 3:49 PM CST Problem: Pain - Acute Goal: Exhibits reduction in pain to an acceptable level of comfort 04/02/2023 1549 by Seymour Marvin RN Outcome: Ongoing 04/02/2023 0851 by Seymour Marvin RN Outcome: Ongoing Problem: Mobility - Impaired Goal: Demonstrates ability to perform physical activity independently or with assistive devices as needed 04/02/2023 1549 by Seymour Marvin RN Outcome: Ongoing 04/02/2023 0851 by Seymour Marvin RN Outcome: Ongoing INE BILLER * Seymour Marvin RN - 04/02/2023 8:51 AM CST Problem: Pain - Acute Goal: Exhibits reduction in pain to an acceptable level of comfort Outcome: Ongoing Problem: Mobility - Impaired Goal: Demonstrates ability to perform physical activity independently or with assistive devices as needed Outcome: Ongoing INE BILLER * Kunal Morrow RN - 04/02/2023 2:48 AM CST Problem: Confusion - Acute, Actual or Risk of Goal: Maintains/improves cognitive status within limits of condition Outcome: Ongoing Problem: Falls/Injury-Risk of Goal: Absence of Falls/Injury Outcome: Ongoing Problem: Pain - Acute Goal: Exhibits reduction in pain to an acceptable level of comfort Outcome: Ongoing Goal: Verbalizes/describes non-pharmacological and pharmacological methods that can be used to reduce pain sensation Outcome: Ongoing Problem: Confusion - Acute, Actual or Risk of Goal: Maintains/improves cognitive status within limits of condition Outcome: Ongoing Problem: Falls/Injury-Risk of Goal: Absence of Falls/Injury Outcome: Ongoing Problem: Pain - Acute Goal: Exhibits reduction in pain to an acceptable level of comfort Outcome: Ongoing Problem: Pain - Acute Goal: Verbalizes/describes non-pharmacological and pharmacological methods that can be used to reduce pain sensation Outcome: Ongoing INE BILLER * Janice Arriaza RN - 04/01/2023 6:52 PM CST Problem: Falls/Injury-Risk of Goal: Absence of Falls/Injury Outcome: Met this shift Flowsheets (Taken 04/01/2023 1746) Environmental Safety Interventions: Standard Interventions in Place Fall Risk Light on Outside Patient Room Fall Risk integration specialist Door (NMR) High Risk Armband On (Green Bracelet) Problem: Pain - Acute Goal: Exhibits reduction in pain to an acceptable level of comfort Outcome: Met this shift Problem: Respiratory Status - Altered, Actual or Risk of Goal: Exhibits no signs or symptoms of respiratory distress Outcome: Met this shift INE BILLER * Florian Franz RN - 04/01/2023 4:27 PM CST Pt a/o x 3. VSS sats WNL on RA. Drsg C/D/I. Neros 5/5 denies numbness. In LE. Pain 2-3/10 denies nausea. Report called to RN A7 INE BILLER * Amie Mclaughlin RN - 04/01/2023 11:10 AM CST INfectious disease updated on ot h/o MRSA 12 years ago for follow up INE BILLER documented in this encounter OR Notes * OR Surgeon - Isai Foss MD - 04/01/2023 8:51 AM CST OPERATIVE REPORT Michelle Franz 1945 SURGEON: Isai Foss MD CIRCULATING NURSE (posterior) STANISLAV Estrada PREOPERATIVE DIAGNOSES: POSTOPERATIVE DIAGNOSIS: Same PROCEDURES: 1. L1-L5 posterolateral spinal fusion 2. L1-L5 posterior instrumentation 3. Allograft, local autograft placed posterolaterally 4. C-arm for intraoperative level localization and hardware evaluation. ANESTHESIA: General, local. COMPLICATIONS: None. SPECIMENS: None. IMPLANTS: Implant Name Type Inv. Item Serial No. Science Center Display Builder Lot No. LRB No. Used Action NMP FIBERS LARGE - [id number] Bone NMP FIBERS LARGE [id number] [employer] N/A 1 Implanted NMP FIBERS LARGE - [id number] Bone NMP FIBERS LARGE [id number] [employer] N/A 1 Implanted NMP FIBERS LARGE - [id number] Bone NMP FIBERS LARGE [id number] [employer] N/A 1 Implanted INFUSE MED - [id number] Prosthetic Implant Non-Specific INFUSE MED Medtronic Sofamor Danek [id number] N/A 1 Implanted CANCELLOUS CHIPS 30CC - [id number] Bone CANCELLOUS CHIPS 30CC [id number] Medtronic Inc N/A 1 Implanted CANCELLOUS CHIPS 60CC - [id number] Bone CANCELLOUS CHIPS 60CC [id number] Medtronic Inc N/A 1 Implanted CANCELLOUS CHIPS 30CC - [id number] Bone CANCELLOUS CHIPS 30CC [id number] Med[employer]onic Inc N/A 1 Implanted CREO 5.5 LOCKING CAP 10 Implanted CREO 5.5, POLYAXIAL SCREW, 6.5x45MM 7 Implanted CREO 5.5, POLYAXIAL SCREW, 6.5x40MM 2 Implanted CREO 5.5, POLYAXIAL SCREW, 6.5x50MM 1 Implanted 5.5MM TI ALLOY CURVED DANNY, 125MM 2 Implanted FLUIDS/MEDICATIONS: See anesthesia record. ESTIMATED BLOOD LOSS: 100cc INTRAOPERATIVE FINDINGS: At the close of procedure, the hardware was in good position as confirmed on AP and lateral radiographs. No deep bleeding. INDICATIONS FOR SURGERY: Michelle Franz is a 77 y.o. yo with progressive mid back pain, adult degenerative scoliosis. We discussed the optiokn of a stabilization procedure, L1-5 PSF with instrumentation. We discussed the procedure in detail. We discussed the risks to include bleeding, infection, damageto surrounding structures, including nerves, arteries, veins, complications of anesthesia, including cardiac and pulmonary. We discussed the possibility of progressive neurologic decline or incomplete recovery despite this procedure. We discussed the risk of incidental durotomy requiring repair andpostoperative recumbency. We discussed the possibility of supra and/or infra adjacent level degenerative changes progressing and requiring further treatment down the road up to and including extension of fusion. She wished to proceed with surgery. Informed consent was obtained in the preoperative anesthesia care unit. The correct operative site was marked with the patient's agreement. DESCRIPTION OF PROCEDURE: She was brought into the operating room and and general endotracheal anesthesia was induced. A time-out was performed where we verified patient name, date of , surgery to be performed, site, andside of symptoms. A weight appropriate dose of IV antibiotics was provided within 1 hour of surgical incision. SCDs were placed on the bilateral lower extremities for DVT prophylaxis. 1 g of TXA was provided prior to procedure. She was then carefully maneuvered into the prone position on the table. A prone view facial sorenson protected her eyes and mouth from undue pressure during the procedure. Axillae were free, and chest and pelvis were padded. Hips were fully extended to accentuate lumbar lordosis and her knees were flexed 90 degrees to relax the traversing nerve roots. Thoracolumbar area was prepped and draped in usual sterile fashion. Midline incision was marked overlying the L1- L5 levels. This incision was infused with 0.25 percent Marcaine with epinephrine. A 10 blade was utilized to make the incision down to the level of the thoracolumbar fascia. This was incised longitudinally in line with its fibers. I subperiosteally elevated the paraspinal muscles to the tips of the L1 to L5 transverse processes.A marker was placed and a lateral radiograph obtained verifying these to be at the appropriate levels. Pedicle screws were placed from L1 to L5. Osteophytes harvested during the screw lacement for use as autograft for fusion. Neuromonitoring was used throughout the screw placement process and screws the screws stimulated. Hardware was in good position as confirmed on AP and lateral radiographs. Pullout strength decent. Overall, the bone quality was noted to be fairly poor during the procedure. 2 rods were then placed and the set screws tightened appropriately. A cross-link was placed. I then burred the posterior aspect of the spine from L1 to L5 and placed the moralized local autograft, DBM, and cancellous allograft along the posterior aspect of the hardware and spine. No significant bleeding. The incision was closed with #1 Vicryl suture in the fascia, 2-0 Vicryl and 3-0 vicryl. Sterile dressings applied. Patient was awakened from anesthesia and extubated without incident. She was taken to the PACU for further cares. Postoperative plan: [place] Standing AP and lateral scoliosis x-rays prior to discharge Avoid significant bending, lifting, twisting for 3 months minimum Stanislav Estrada provided assistance with preoperative positioning, prepping, and draping of the patient. The assistant plant manager provided vital operative assistance with retraction using instruments best providing the necessary exposure and visualization for the case, manipulation of tissues to achieve hemostasis, suction for visualization and assisted in wound closure. Postoperatively they assisted in the transfer of the patient off of the operative table and transition into the post anesthesia care unit with transition of care being made to the anesthesiologist. INE BILLER * Brief Op Note - Nj Thorne PA-C - 04/01/2023 7:03 AM CST Operative Note Surgery Date: 04/01/23 Primary Surgeon: Dr. Foss Assistants: Nj Thorne PA-C Post-op Diagnosis: Lumbar radiculopathy Procedure: L1-5 POSTERIOR SPINAL FUSION WITH INSTRUMENTATION, REPAIR OF INCIDENTAL DURAL RENT EBL: 100 mL Specimens: None Complications / Findings: Rick dural rent. Expected findings of scoliosis. Indications: I was asked by Dr. Foss to assist with surgery. I positioned and prepped the patient. I retracted soft tissue for operative exposure. I suctioned fluids. I provided traction for dissection. I helped to ligate blood vessels. I helped Dr. Foss identify and protect important structures. I sutured and bandaged the incision. The procedure was medically necessary for an assistant plant manager because Dr. Foss needed the operative exposure and assistance that I provided. This allowed him to safely and efficiently operate. It was also important that I help ligate blood vessels to maintain hemostasis and reduce the bleeding risk. The assistance that I provided reduced operative time which meant less general anesthetic for the patient. Nj Thorne PA-C INE BILLER documented in this encounter Plan of Treatment Scheduled Referrals Name Type Priority Associated Diagnoses Orde r Schedule Follow Up Follow Up Routine Ordered: 04/02 Follow Up Follow Up Routine Ordered: 04/03 documented as of this encounter Procedures Procedure Name Priority Date/Time Associated Diagnosis Comments HEMOGLOBIN Routine 04/03/2023 7:00 AM MACHINE BILLER HEMOGLOBIN Timed Procedure 04/02/2023 3:26 PM MACHINE BILLER XR SPINE LUMBAR ROUTINE STAT 04/02/2023 10:43 AM MACHINE BILLER EXTRA TUBE-SST (LAB USE ONLY) Routine 04/02/2023 7:28 AM MACHINE BILLER HEMOGLOBIN Routine 04/02/2023 7:28 AM MACHINE BILLER XR C-ARM SPINE STAT 04/01/2023 10:36 AM MACHINE BILLER SPIN BONE AUTOGRFT LOCAL 04/01/2023 7:29 AM MACHINE BILLER Degeneration of lumbar intervertebral disc ALLOGRAFT FOR SPINE SURGERY ONLY MORSELIZED 04/01/2023 7:29 AM MACHINE BILLER Degeneration of lumbar intervertebral disc INSERT VERT FIX DEV,POST,3-6 * 04/01/2023 7:29 AM MACHINE BILLER Degeneration of lumbar intervertebral disc SPINE FUSN,POST TECH,EA ADDNL* 04/01/2023 7:29 AM MACHINE BILLER Degeneration of lumbar intervertebral disc ARTHRODESIS POSTERIOR/POSTEROLAT ERAL LUMBAR 04/01/2023 7:29 AM MACHINE BILLER Degeneration of lumbar intervertebral disc ABORH CONFIRM (LAB USE ONLY) STAT 04/01/2023 6:47 AM MACHINE BILLER TYPE AND SCREEN STAT 04/01/2023 6:46 AM MACHINE BILLER PROTIME/INR STAT 04/01/2023 6:46 AM MACHINE BILLER PARTIAL THROMBOPLASTIN TIME STAT 04/01/2023 6:46 AM MACHINE BILLER HEMOGLOBIN STAT 04/01/2023 6:46 AM MACHINE BILLER HEMATOCRIT STAT 04/01/2023 6:46 AM MACHINE BILLER POCT GLU METER STAT 04/01/2023 6:12 AM MACHINE BILLER documented in this encounter Results * (ABNORMAL) Hemoglobin (04/03/2023 7:00 AM MACHINE BILLER) Only the most recent of4 resultswithin the time period is included. Hemoglobin 8.5(L) 12.0 - 16.0 gm/dL 04/03/2023 7:25 AM MACHINE BILLER [facility] Blood 04/03/2023 7:00 AM MACHINE BILLER 04/03/2023 7:17 AM MACHINE BILLER Nj Thorne PA-C HEMATOLOGY ORDERA BLE Performing Organization Address City/[facility] Co de Phone Number [facility] [address], [place] [id number] * XR SPINE LUMBAR ROUTINE (04/02/2023 10:43 AM MACHINE BILLER) Anatomical Region Laterality Modality Spine Computed Radiogr aphy 04/02/2023 11:2 7 AM MACHINE BILLER Impressions 04/02/2023 11:29 AM MACHINE BILLER IMPRESSION: 1. Operative changes of posterior danny and pedicle screw fixation L1-L5 with posterolateral bone graft material, grossly negative for postoperative purposes. Lumbar vertebral body alignment described in more detail above. 2. Old superior and inferior pubic rami fractures. REPORT SIGNED BY Janice Talavera M.D. Narrative 04/02/2023 11:29 AM MACHINE BILLER EXAM: ??XR SPINE LUMBAR ROUTINE DATE: 04/02/2023 10:31 AM CLINICAL DATA: Patient age: [age] years old. L1-L5 posterior spinal fusion. COMPARISON: ??No prior comparisons. TECHNICAL INFORMATION: ?Routine Views: ??AP, lateral and coned lateral L5-S1 views. INTERPRETATION: ?? Levocurvature of the lumbar spine with apex at L1. Operative changes of posterior danny and pedicle screw fixation L1-L5. Hardware appears [...] with apex at L1. Operative changes ofposterior danny and pedicle screw fixation L1-L5. Hardware appears [...] IMPRESSION IMPRESSION: 1. Operative changes of posterior danny and pedicle screw fixation L1-L5with posterolateral bone graft material, grossly negative forpostoperative purposes. Lumbar vertebral body alignment described in moredetail above. 2. Old superior and inferior pubic rami fractures. REPORT SIGNED BY Janice Talavera M.D. Nj Thorne PA-C XRAY ORDERABLE * Extra Tube-SST (Lab Use Only) (04/02/2023 7:28 AM MACHINE BILLER) Blood 04/02/2023 7:28 AM MACHINE BILLER 04/02/2023 7:53 AM MACHINE BILLER Bonita Estrada MD CHEMISTRY ORDERABLE [facility] [address] [address] * XR C-ARM SPINE (04/01/2023 10:36 AM MACHINE BILLER) Anatomical Region Laterality Modality Computed Radiogr aphy 04/01/2023 12:3 5 PM MACHINE BILLER Impressions 04/01/2023 12:37 PM MACHINE BILLER IMPRESSION: 1. ??Procedural assistance. REPORT SIGNED BY DR. MARCUS JUNE Narrative 04/01/2023 12:37 PM MACHINE BILLER EXAM: ??XR C-ARM SPINE DATE: ?? 04/01/2023 [...] JUNE Isai Foss MD XRAY ORDERABLE * ABORh Confirm (Lab Use Only) (04/01/2023 6:47 AM MACHINE BILLER) Group and Rh O Positive 04/01/2023 9:09 AM MACHINE BILLER [facility] Blood 04/01/2023 6:47 AM MACHINE BILLER 04/01/2023 7:26 AM MACHINE BILLER Nj Thorne PA-C BLOOD BANK ORDERA BLE [facility] [address] [place] [address] [address] [address] [facility] [address] [place] [address] * Hematocrit (04/01/2023 6:46 AM MACHINE BILLER) Hematocrit 37.3 36.0 - 48.0 % 04/01/2023 7:07 AM MACHINE BILLER [facility] Blood 04/01/2023 6:46 AM MACHINE BILLER 04/01/2023 6:50 AM MACHINE BILLER Nj Thorne PA-C HEMATOLOGY ORDERA BLE Performing Organization Address [facility] Co de Phone Number [address] [address] * Type and Screen (04/01/2023 6:46 AM MACHINE BILLER) Pathologist [facility] Group and Rh O Positive 04/01/2023 7:39 AM MACHINE BILLER [facility] Antibody Screen Negative 04/01/2023 7:39 AM [facility] Blood 04/01/2023 6:46 AM MACHINE BILLER 04/01/2023 6:50 AM MACHINE BILLER Nj Thorne PA-C BLOOD BANK ORDERA BLE Performing Organization Address [facility] de Phone Number [facility] [id number] [place] [address] * Partial Thromboplastin Time (04/01/2023 6:46 AM MACHINE BILLER) Pathologist [facility] PTT 28.8 24.0 - 31.0 SEC. 04/01/2023 7:06 AM [facility] Blood 04/01/2023 6:46 AM MACHINE BILLER 04/01/2023 6:50 AM MACHINE BILLER Narrative [facility] - 04/01/2023 7:06 AM MACHINE BILLER aPTT Therapeutic Reference Ranges: Argatroban protocol: 60 - 85 seconds Bivalirudin protocol: 43 - 71 seconds Nj Thorne PA-C COAGULATION ORDER ABLE Performing Organization Address [facility] Co de Phone Number [facility] [address] [address] * Protime/INR (04/01/2023 6:46 AM MACHINE BILLER) INR 1.0 0.9 - 1.2 04/01/2023 7:06 AM [facility] Blood 04/01/2023 6:46 AM MACHINE BILLER 04/01/2023 6:50 AM MACHINE BILLER Nj Thorne PA-C COAGULATION ORDER ABLE Performing Organization Address [facility]/ZIP Co de Phone Number [place] [address] * (ABNORMAL) POCT Glucose Meter (04/01/2023 6:12 AM MACHINE BILLER) GLUCOSE WB METER 105(H) 60 - 100 mg/dL 04/01/2023 6:38 AM [facility] Blood 04/01/2023 6:12 AM MACHINE BILLER 04/01/2023 6:38 AM MACHINE BILLER Isai Foss MD LAB POINT OF CARE TE ST RESULTS Performing Organization Address [facility]/ZIP Co de Phone Number [place] [address] documented in this encounter Visit Diagnoses Diagnosis Lumbar radiculopathy- Primary Thoracic or lumbosacral neuritis or radiculitis, unspecified Atrial fibrillation, unspecified type (HCC) documented in this encounter Admitting Diagnoses Diagnosis Lumbar radiculopathy Thoracic or lumbosacral neuritis or radiculitis, unspecified documented in this encounter Administered Medications Inactive Administered Medications - up to 3 most recent administrations Medication Order MAR Action Action Date Dose Rate Site acetaminophen (TYLENOL) rectal suppository 650 mg 650 mg, Rectal, THREE TIMES A DAY, First dose on Fri04/01/23 at 1400, Until Discontinued, Post-Op acetaminophen (TYLENOL) tablet 1,000 mg 1,000 mg, oral, THREE TIMES A DAY, First dose on Fri04/01/23 at 1400, Until Discontinued, Post-Op Given 04/03/2023 1:15 PM MACHINE BILLER 1,000 mg Given 04/03/2023 8:12 AM MACHINE BILLER 1,000 mg Given 04/02/2023 10:15 PM MACHINE BILLER 1,000 mg amLODIPine (NORVASC) tablet 10 mg 10 mg, oral, DAILY, First dose on Fri04/02/23 at 0800, Until Discontinued Given 04/03/2023 8:11 AM MACHINE BILLER 10 mg Given 04/02/2023 8:08 AM MACHINE BILLER 10 mg atenolol (TENORMIN) tablet 25 mg 25 mg, oral, DAILY, First dose on Fri04/02/23 at 0800, Until Discontinued Given 04/03/2023 8:11 AM MACHINE BILLER 25 mg Given 04/02/2023 8:08 AM MACHINE BILLER 25 mg ceFAZolin (Ancef) 1 g in sodium chloride 0.9 % 100 mL IV piggyback 1 g, Intravenous, EVERY 8 HOURS (NS), 2 doses, First dose on Fri04/01/23 at 1115, Last dose on Fri04/01/23 at 1915, Post-Op, Administer over 30 Minutes New Bag 04/01/2023 7:38 PM MACHINE BILLER 1 g 200 mL/hr D50W IV syringe 25-50 mL 25-50 mL, Intravenous, NEEDED, Starting on Fri04/01/23 at 1109, Until Fri04/03/23 at 2133, Post-Op, hypoglycemia, for fingerstick blood glucose less than 70 mg/dL docusate sodium (COLACE) capsule 200 mg 200 mg, oral, TWICE A DAY, First dose on Fri04/01/23 at 2000, Until Discontinued, Post-Op DULoxetine (CYMBALTA) delayed release capsule 20 mg 20 mg, oral, DAILY, First dose on Fri04/01/23 at 2030, Until Discontinued Given 04/02/2023 7:57 PM MACHINE BILLER 20 mg Given 04/01/2023 8:12 PM MACHINE BILLER 20 mg DULoxetine (CYMBALTA) delayed release capsule 60 mg 60 mg, oral, DAILY, First dose on Fri04/01/23 at 2030, Until Discontinued Given 04/02/2023 7:57 PM MACHINE BILLER 60 mg Given 04/01/2023 8:11 PM MACHINE BILLER 60 mg famotidine (PEPCID) tablet 20 mg 20 mg, oral, DAILY, First dose on Fri04/01/23 at 2030, Until Discontinued Given 04/03/2023 8:11 AM MACHINE BILLER 20 mg Given 04/02/2023 8:08 AM MACHINE BILLER 20 mg Given 04/01/2023 8:11 PM MACHINE BILLER 20 mg gabapentin (NEURONTIN) capsule 600 mg 600 mg, oral, ONCE, 1 dose, On Fri04/01/23 at 0600, Pre-Op Given 04/01/2023 6:43 AM MACHINE BILLER 600 mg glucagon, human recombinant (Glucagen) injection (conc: 1 mg/mL) 1 mg 1 mg, IntraMUSCULAR, EVERY 15 MINUTES NEEDED, 2 doses, Starting on Fri04/01/23 at 1109, Until Fri04/03/23 at 2133, Post-Op, for hypoglycemia HYDROmorphone (DILAUDID) syringe 0.2-0.4 mg 0.2-0.4 mg, Intravenous, EVERY 5 MINUTES NEEDED, 5 doses, Starting on Fri04/01/23 at 1109, Until Fri04/01/23 at 1642, Phase 1, POST-ACUTE PAIN MANAGEMENT Given 04/01/2023 1:12 PM MACHINE BILLER 0.2 mg Given 04/01/2023 11:45 AM MACHINE BILLER 0.2 mg HYDROmorphone (DILAUDID) syringe 0.2-0.4 mg 0.2-0.4 mg, Intravenous, EVERY 4 HOURS NEEDED, Starting on Fri04/01/23 at 1109, Until Fri04/02/23 at 0158, Post-Op, Pain, when NOT taking PO Given 04/02/2023 12:29 AM MACHINE BILLER 0.4 mg Given 04/01/2023 2:31 PM MACHINE BILLER 0.3 mg HYDROmorphone (DILAUDID) syringe 0.2-0.4 mg 0.2-0.4 mg, Intravenous, EVERY 4 HOURS NEEDED, Starting on Fri04/02/23 at 0158, Until Fri04/02/23 at 1142, Post-Op, Pain, when NOT taking PO, Pain, if oral opioid not effective or tolerated Given 04/02/2023 3:39 AM MACHINE BILLER 0.4 mg HYDROmorphone (DILAUDID) syringe 0.5 mg 0.5 mg, Intravenous, EVERY 4 HOURS NEEDED, Starting on Fri04/02/23 at 1141, Until Khloe 04/03/23 at 2133, Post-Op, Pain, when NOT taking PO, Pain, if oral opioid not effective or tolerated Given 04/02/2023 11:04 PM MACHINE BILLER 0.5 mg Given 04/02/2023 5:37 PM MACHINE BILLER 0.5 mg Given 04/02/2023 1:21 PM MACHINE BILLER 0.5 mg hydrOXYzine HCl (VISTARIL) injection 25 mg 25 mg, IntraMUSCULAR, ONCE NEEDED, MAY REPEAT X 1, 2 doses, Starting on Fri04/01/23 at 1107, Until Fri04/01/23 at 1642, Phase 1/2, for nausea unrelieved by second line antiemetic if not given in the past 6 hours while in recovery area. Given 04/01/2023 11:45 AM MACHINE BILLER 25 mg Left Lateral Thigh hydrOXYzine HCl (VISTARIL) injection 50 mg 50 mg, IntraMUSCULAR, EVERY 3 HOURS NEEDED, Starting on Fri04/01/23 at 1109, Until Khloe 04/03/23 at 2133, Post-Op, to enhance pain control of analgesics hydrOXYzine pamoate (Vistaril) capsule 25 mg 25 mg, oral, ONCE NEEDED, MAY REPEAT X 1, 2 doses, Starting on Fri04/01/23 at 1107, Until Fri04/01/23 at 1642, Phase 1/2, for augmentation of narcotic based analgesia while in recovery area. Not to be used if given within the past 6 hours. Given 04/01/2023 3:43 PM MACHINE BILLER 25 mg hydrOXYzine pamoate (Vistaril) capsule 50 mg 50 mg, oral, EVERY 3 HOURS NEEDED, Starting on Fri04/01/23 at 1109, Until Khloe 04/03/23 at 2133, Post-Op, to enhance pain control of analgesics Given 04/03/2023 2:37 AM MACHINE BILLER 50 mg Given 04/01/2023 9:28 PM MACHINE BILLER 50 mg lactated Ringers (LR) IV infusion at 50 mL/hr, Intravenous, CONTINUOUS, Starting on Fri04/01/23 at 0600, Until Fri04/01/23 at 1119, Pre-Op New Bag 04/01/2023 6:45 AM MACHINE BILLER 50 mL/hr lactated Ringers (LR) IV infusion at 100 mL/hr, Intravenous, CONTINUOUS, Starting on Fri04/01/23 at 1115, Until Fri04/01/23 at 1642, Phase 1 Restarted 04/01/2023 11:15 AM MACHINE BILLER 100 mL/hr naloxone (NARCAN) injection 0.1 mg 0.1 mg, Intravenous, EVERY 1 MINUTE PRN, Starting on Fri04/01/23 at 1109, Until Khloe 04/03/23 at 2133, Post-Op, Opiate Reversal ondansetron (ZOFRAN) disintegrating tablet 4 mg 4 mg, oral, EVERY 8 HOURS NEEDED, Starting on Fri04/01/23 at 1109, Until Khloe 04/03/23 at 2133, Post-Op, nausea & vomiting Given 04/03/2023 2:40 AM MACHINE BILLER 4 mg ondansetron (ZOFRAN) injection 4 mg 4 mg, Intravenous, EVERY 8 HOURS NEEDED, Starting on Fri04/01/23 at 1109, Until Khloe 04/03/23 at 2133, Post-Op, nausea & vomiting oxyCODONE (immediate release) (ROXICODONE) tablet 5 mg 5 mg, oral, NEEDED, MAY REPEAT X1, 2 doses, Starting on Fri04/01/23 at 1107, Until Fri04/01/23 at 1642, Phase 1/2, Pain, when taking PO, pain while in recovery area Given 04/01/2023 3:44 PM MACHINE BILLER 5 mg oxyCODONE (immediate release) (ROXICODONE) tablet 5-10 mg 5-10 mg, oral, EVERY 4 HOURS NEEDED, Starting on Fri04/01/23 at 1109, Until Khloe 04/03/23 at 2133, Post-Op, Pain, when taking PO Given 04/03/2023 2:30 PM MACHINE BILLER 5 mg Given 04/03/2023 10:23 AM MACHINE BILLER 10 mg Given 04/03/2023 6:44 AM MACHINE BILLER 10 mg oxyCODONE (oxyCONTIN) extended release tablet 12 HR 10 mg 10 mg, oral, ONCE, 1 dose, On Fri04/01/23 at 0600, Pre-Op Given 04/01/2023 6:43 AM MACHINE BILLER 10 mg potassium chloride 20 mEq in D5W-NS IV infusion 1000 mL at 50 mL/hr, Intravenous, CONTINUOUS, Starting on Fri04/01/23 at 1115, Until Fri04/03/23 at 2133, Post-Op New Bag 04/01/2023 8:22 PM MACHINE BILLER 50 mL/ hr prochlorperazine (COMPAZINE) injection 10 mg 10 mg, Intravenous, EVERY 6 HOURS NEEDED, Starting on Fri04/01/23 at 1109, Until Fri04/03/23 at 2133, Post-Op, nausea & vomiting, If not relieved by ondansetron prochlorperazine (COMPAZINE) rectal suppository 25 mg 25 mg, Rectal, EVERY 12 HOURS NEEDED, Starting on Fri04/01/23 at 1109, Until Fri04/03/23 at 2133, Post-Op, nausea & vomiting, if unable to tolerate oral or no IV access prochlorperazine (COMPAZINE) tablet 10 mg 10 mg, oral, EVERY 6 HOURS NEEDED, Starting on Fri04/01/23 at 1109, Until Fri04/03/23 at 2133, Post-Op, nausea & vomiting, If not relieved by ondansetron sodium chloride 0.9 % IV BOLUS 500 mL 500 mL, Intravenous, ONCE, 1 dose, On Fri04/02/23 at 2015, Administer over 61 Minutes New Bag 04/02/2023 8:37 PM MACHINE BILLER 500 mL 491. 8 mL/hr tiZANidine (ZANAFLEX) tablet 2-4 mg 2-4 mg, oral, EVERY 6 HOURS NEEDED, Starting on Fri04/01/23 at 1109, Until Fri04/03/23 at 2133, Spasticity Given 04/03/2023 10:23 AM MACHINE BILLER 4 mg Given 04/02/2023 4:45 PM MACHINE BILLER 4 mg Given 04/02/2023 8:07 AM MACHINE BILLER 4 mg vancomycin ( VANCOCIN ) 1000 mg in NS 250 mL IV piggyback 1,000 mg, Intravenous, ONE HOUR PRE-PROCEDURE ONE TIME DOSE, 1 dose, Starting on Fri04/01/23 at 0553, Until Fri04/01/23 at 0743, Pre-Op New Bag 04/01/2023 6:43 AM MACHINE BILLER 1,000 mg 250 mL/hr documented in this encounter Active and Recently Administered Medications Times are shown in MACHINE BILLER. Scheduled Medication Order 04/01/2023 04/02/2023 04/03/2023 acetaminophen (TYLENOL) rectal suppository 650 mg(Linked Group 1) 650 mg, Rectal, THREE TIMES A DAY, First dose on Fri04/01/23 at 1400, Until Discontinued, Post-Op 1400 (See Alternative - Provider: Florian Franz RN)2127 (See Alternative - Provider: Kunal Morrow RN) 08 (See Alternative - Provider: Seymour Marvin RN)132 (See Alternative - Provider: Seymour Marvin RN)221 (See Alternative - Provider: Tamy Sosa RN) 0812 (See Alternative - Provider: Seymour Marvin RN)1315 (See Alternative - Provider: Seymour Marvin RN) acetaminophen (TYLENOL) tablet 1,000 mg(Linked Group 1) 1,000 mg, oral, THREE TIMES A DAY, First dose on Fri04/01/23 at 1400, Until Discontinued, Post-Op 1400 (Not Given - Provider: Florian Franz RN - Reason: Clinically appropriate (comment) - Comment: given in OR)2127 (Given - Provider: Kunal Morrow RN) 807 (Given - Provider: Seymour Marvin RN)132 (Given - Provider: Seymour Marvin RN)221 (Given - Provider: Tamy Sosa RN) 0812 (Given - Provider: Seymour Marvin RN)1315 (Given - Provider: Seymour Marvin RN) amLODIPine (NORVASC) tablet 10 mg 10 mg, oral, DAILY, First dose on Fri04/02/23 at 0800, Until Discontinued 807 (Given - Provider: Seymour Marvin RN) 0811 (Given - Provider: Seymour Marvin RN) atenolol (TENORMIN) tablet 25 mg 25 mg, oral, DAILY, First dose on Fri04/02/23 at 0800, Until Discontinued 807 (Given - Provider: Seymour Marvin RN) 0811 (Given - Provider: Seymour Marvin RN) ceFAZolin (Ancef) 1 g in sodium chloride 0.9 % 100 mL IV piggyback () 1 g, Intravenous, EVERY 8 HOURS (NS), 2 doses, First dose on Fri04/01/23 at 1115, Last dose on Fri04/01/23 at 1915, Post-Op, Administer over 30 Minutes 1115 (Not Given - Provider: Florian Franz RN - Reason: Clinically appropriate (comment))1937 (New Bag - Provider: Kunal Morrow RN)2007 (Stopped - Provider: Daisha Kam RN) dexAMETHasone (DECADRON) injection 10 mg (COMPLETED) 10 mg, Intravenous, STITCH BONDING MACHINE DRAWER IN TO OR, 1 dose, Starting on Fri04/01/23 at 0553, Until Discontinued, Intra-Op 0835 (Given - Provider: Monika Ireland APRN, EDUCATION PROGRAM MANAGER) docusate sodium (COLACE) capsule 200 mg 200 mg, oral, TWICE A DAY, First dose on Fri04/01/23 at 2000, Until Discontinued, Post-Op 1999 (Declined - Provider: Kunal Morrow RN) 0800 (Declined - Provider: Seymour Marvin RN)1956 (Declined - Provider: Tamy Sosa RN) 0800 (Declined - Provider: Seymour Marvin RN) DULoxetine (CYMBALTA) delayed release capsule 20 mg 20 mg, oral, DAILY, First dose on Fri04/01/23 at 2030, Until Discontinued 2011 (Given - Provider: Kunal Morrow RN) 0808 (Not Given - Provider: Seymour Marvin RN - Reason: Clinically appropriate (comment) - Comment: Wants to take them @ 1999.)1956 (Given - Provider: Tamy Sosa, ANGELES) DULoxetine (CYMBALTA) delayed release capsule 60 mg 60 mg, oral, DAILY, First dose on Fri04/01/23 at 2030, Until Discontinued 2010 (Given - Provider: Kunal Morrow RN) 0808 (Not Given - Provider: Seymour Marvin RN - Reason: Clinically appropriate (comment) - Comment: Wants to take them @ 1999.)1956 (Given - Provider: Tamy Sosa RN) famotidine (PEPCID) tablet 20 mg 20 mg, oral, DAILY, First dose on Fri04/01/23 at 2030, Until Discontinued 2010 (Given - Provider: Kunal Morrow RN) 0808 (Given - Provider: Seymour Marvin, ANGELES) 0811 (Given - Provider: Seymour Marvin, ANGELES) gabapentin (NEURONTIN) capsule 600 mg (COMPLETED) 600 mg, oral, ONCE, 1 dose, On Fri04/01/23 at 0600, Pre-Op 0643 (Given - Provider: Celeste Robbins, ANGELES) oxyCODONE (oxyCONTIN) extended release tablet 12 HR 10 mg (COMPLETED) 10 mg, oral, ONCE, 1 dose, On Fri04/01/23 at 0600, Pre-Op 0643 (Given - Provider: Celeste Robbins, ANGELES) sodium chloride 0.9 % IV BOLUS 500 mL (COMPLETED) 500 mL, Intravenous, ONCE, 1 dose, On Fri04/02/23 at 2015, Administer over 61 Minutes 2036 (New Bag - Provider: Tamy Sosa RN)2137 (Stopped - Provider: Daisha Kam, ANGELES)2138 (Stopped - Provider: Daisha Kam RN) vancomycin ( VANCOCIN ) 1000 mg in NS 250 mL IV piggyback (COMPLETED) 1,000 mg, Intravenous, ONE HOUR PRE-PROCEDURE ONE TIME DOSE, 1 dose, Starting on Fri04/01/23 at 0553, Until Fri04/01/23 at 0743, Pre-Op 0643 (New Bag - Provider: Celeste Robbins RN)0743 (Stopped - Provider: Celeste Robbins RN) Continuous Medication Order 04/01/2023 04/02/2023 04/03/2023 lactated Ringers (LR) IV infusion (CANCELED) at 50 mL/hr, Intravenous, CONTINUOUS, Starting on Fri04/01/23 at 0600, Until Fri04/01/23 at 1119, Pre-Op 0645 (New Bag - Provider: Celeste Robbins, ANGELES) lactated Ringers (LR) IV infusion (CANCELED) at 100 mL/hr, Intravenous, CONTINUOUS, Starting on Fri04/01/23 at 1115, Until Fri04/01/23 at 1642, Phase 1 1115 (Restarted - Provider: Florian Franz, ANGELES) phenylephrine (TREVER-SYNEPHRINE) 32 mg in sodium chloride 0.9 % 100 mL IV infusion (conc: 0.32 mg/mL) for OR (CANCELED) 0-200 mcg/min (0-37.5 mL/hr), Intravenous, TITRATE, Starting on Fri04/01/23 at 0745, Until Fri04/01/23 at 1642, Titrate by 10 mcg/min if MAP is 60-65 and by 20 mcg/min if MAP is less than 60. Notify provider for rate greater than 180 mcg/min 0923 (New Bag - Provider: Monika Ireland APRN, EDUCATION PROGRAM MANAGER)0932 (Rate Change - Provider: Monika Ireland APRN, EDUCATION PROGRAM MANAGER)1014 (Rate Change - Provider: Monika Ireland APRN, EDUCATION PROGRAM MANAGER)1106 (Rate Change - Provider: Monika Ireland APRN, EDUCATION PROGRAM MANAGER)1108 (Stopped - Provider: Monika Ireland APRN, EDUCATION PROGRAM MANAGER) potassium chloride 20 mEq in D5W-NS IV infusion 1000 mL at 50 mL/hr, Intravenous, CONTINUOUS, Starting on Fri04/01/23 at 1115, Until Khloe 04/03/23 at 2133, Post-Op 2021 (New Bag - Provider: Kunal Morrow, RN) 0812 (Stopped - Provider: Daisha Kam, RN) PRN Medication Order 04/01/2023 04/02/2023 04/03/2023 BUPivacaine 0.25%-EPINEPHrine 1:200,000 (PF) (SENSORCAINE) injection (CANCELED) INTRA-PROCEDURE NEEDED, Starting on Fri04/01/23 at 0928, Until Fri04/01/23 at 1119, Intra-Op 0855 (Given - Provider: Isai Foss MD) D50W IV syringe 25-50 mL 25-50 mL, Intravenous, NEEDED, Starting on Fri04/01/23 at 1109, Until Khloe 04/03/23 at 2133, Post-Op, hypoglycemia, for fingerstick blood glucose less than 70 mg/dL glucagon, human recombinant (Glucagen) injection (conc: 1 mg/mL) 1 mg 1 mg, IntraMUSCULAR, EVERY 15 MINUTES NEEDED, 2 doses, Starting on Fri04/01/23 at 1109, Until Khloe 04/03/23 at 2133, Post-Op, for hypoglycemia HYDROmorphone (DILAUDID) syringe 0.2-0.4 mg (CANCELED) 0.2-0.4 mg, Intravenous, EVERY 5 MINUTES NEEDED, 5 doses, Starting on Fri04/01/23 at 1109, Until Fri04/01/23 at 1642, Phase 1, POST-ACUTE PAIN MANAGEMENT 1145 (Given - Provider: Amie Mclaughlin RN)1312 (Given - Provider: Florian Franz RN) HYDROmorphone (DILAUDID) syringe 0.2-0.4 mg (CANCELED) 0.2-0.4 mg, Intravenous, EVERY 4 HOURS NEEDED, Starting on Fri04/01/23 at 1109, Until Fri04/02/23 at 0158, Post-Op, Pain, when NOT taking PO 1431 (Given - Provider: Florian Franz RN) 0029 (Given - Provider: Kunal Morrow, ANGELES) HYDROmorphone (DILAUDID) syringe 0.2-0.4 mg (CANCELED) 0.2-0.4 mg, Intravenous, EVERY 4 HOURS NEEDED, Starting on Fri04/02/23 at 0158, Until Fri04/02/23 at 1142, Post-Op, Pain, when NOT taking PO, Pain, if oral opioid not effective or tolerated 0339 (Given - Provider: Kunal Morrow RN) HYDROmorphone (DILAUDID) syringe 0.5 mg 0.5 mg, Intravenous, EVERY 4 HOURS NEEDED, Starting on Fri04/02/23 at 1141, Until Khloe 04/03/23 at 2133, Post-Op, Pain, when NOT taking PO, Pain, if oral opioid not effective or tolerated 1321 (Given - Provider: Seymour Marvin RN)1737 (Given - Provider: Seymour Marvin RN)2304 (Given - Provider: Tamy Sosa RN) hydrOXYzine HCl (VISTARIL) injection 25 mg (CANCELED) 25 mg, IntraMUSCULAR, ONCE NEEDED, MAY REPEAT X 1, 2 doses, Starting on Fri04/01/23 at 1107, Until 04/01/23 at 1642, Phase 1/2, for nausea unrelieved by second line antiemetic if not given in the past 6 hours while in recovery area. 1145 (Given - Provider: Amie Mclaughlin RN) hydrOXYzine HCl (VISTARIL) injection 50 mg 50 mg, IntraMUSCULAR, EVERY 3 HOURS NEEDED, Starting on Fri04/01/23 at 1109, Until Khloe 04/03/23 at 2133, Post-Op, to enhance pain control of analgesics hydrOXYzine pamoate (Vistaril) capsule 25 mg (CANCELED)(Linked Group 2) 25 mg, oral, ONCE NEEDED, MAY REPEAT X 1, 2 doses, Starting on Fri04/01/23 at 1107, Until 04/01/23 at 1642, Phase 1/2, for augmentation of narcotic based analgesia while in recovery area. Not to be used if given within the past 6 hours. 1543 (Given - Provider: Florian Franz RN) hydrOXYzine pamoate (Vistaril) capsule 50 mg 50 mg, oral, EVERY 3 HOURS NEEDED, Starting on Fri04/01/23 at 1109, Until Khloe 04/03/23 at 2133, Post-Op, to enhance pain control of analgesics 2128 (Given - Provider: Kunal Morrow RN) 0237 (Given - Provider: Daisha Kam, ANGELES) naloxone (NARCAN) injection 0.1 mg 0.1 mg, Intravenous, EVERY 1 MINUTE PRN, Starting on Fri04/01/23 at 1109, Until Khloe 24 at 2133, Post-Op, Opiate Reversal ondansetron (ZOFRAN) disintegrating tablet 4 mg(Linked Group 3) 4 mg, oral, EVERY 8 HOURS NEEDED, Starting on Fri04/01/23 at 1109, Until Khloe 24 at 2133, Post-Op, nausea & vomiting 0240 (Given - Provider: Daisha Kam, ANGELES) ondansetron (ZOFRAN) injection 4 mg(Linked Group 3) 4 mg, Intravenous, EVERY 8 HOURS NEEDED, Starting on Fri04/01/23 at 1109, Until Khloe 1/18/24 at 2133, Post-Op, nausea & vomiting 0240 (See Alternativ e - Provider: Daisha Kam RN) oxyCODONE (immediate release) (ROXICODONE) tablet 5 mg (CANCELED)(Linked Group 4) 5 mg, oral, NEEDED, MAY REPEAT X1, 2 doses, Starting on Fri04/01/23 at 1107, Until Fri04/01/23 at 1642, Phase 1/2, Pain, when taking PO, pain while in recovery area 1544 (Given - Provider: Florian Franz RN) oxyCODONE (immediate release) (ROXICODONE) tablet 5-10 mg 5-10 mg, oral, EVERY 4 HOURS NEEDED, Starting on Fri04/01/23 at 1109, Until Fri04/03/23 at 2133, Post-Op, Pain, when taking PO 2010 (Given - Provider: Kunal Morrow RN)2124 (Given - Provider: Kunal Morrow RN) 0611 (Given - Provider: Kunal Morrow RN)1020 (Given - Provider: Seymour Marvin RN)1421 (Given - Provider: Seymour Marvin RN)1832 (Given - Provider: Seymour Marvin RN)2215 (Given - Provider: Tamy Sosa RN) 0237 (Given - Provider: Daisha Kam RN)0644 (Given - Provider: Daisha Kam RN)1023 (Given - Provider: Seymour Marvin RN)1430 (Given - Provider: Seymour Marvin RN) prochlorperazine (COMPAZINE) injection 10 mg(Linked Group 5) 10 mg, Intravenous, EVERY 6 HOURS NEEDED, Starting on Fri04/01/23 at 1109, Until Khloe 04/03/23 at 2133, Post-Op, nausea & vomiting, If not relieved by ondansetron prochlorperazine (COMPAZINE) rectal suppository 25 mg 25 mg, Rectal, EVERY 12 HOURS NEEDED, Starting on Fri04/01/23 at 1109, Until Fri04/03/23 at 2133, Post-Op, nausea & vomiting, if unable to tolerate oral or no IV access prochlorperazine (COMPAZINE) tablet 10 mg(Linked Group 5) 10 mg, oral, EVERY 6 HOURS NEEDED, Starting on Fri04/01/23 at 1109, Until Khloe 04/03/23 at 2133, Post-Op, nausea & vomiting, If not relieved by ondansetron tiZANidine (ZANAFLEX) tablet 2-4 mg 2-4 mg, oral, EVERY 6 HOURS NEEDED, Starting on Fri04/01/23 at 1109, Until Khloe 04/03/23 at 2133, Spasticity 0807 (Given - Provider: Syemour Marvin RN)1645 (Given - Provider: Seymour Marvin RN) 1023 (Given - Provider: Seymour Marvin RN) Linked Groups Order Group 1: acetaminophen (TYLENOL) tablet 1,000 mgJump to med 1,000 mg, oral, THREE TIMES A DAY, First dose on Fri04/01/23 at 1400, Until Discontinued, Post-Op Or acetaminophen (TYLENOL) rectal suppository 650 mgJump to med 650 mg, Rectal, THREE TIMES A DAY, First dose on Fri04/01/23 at 1400, Until Discontinued, Post-Op Group 2: hydrOXYzine pamoate (Vistaril) capsule 25 mg (CANCELED)Jump to med 25 mg, oral, ONCE NEEDED, MAY REPEAT X 1, 2 doses, Starting on Fri04/01/23 at 1107, Until Fri04/01/23 at 1642, Phase 1/2, for augmentation of narcotic based analgesia while in recovery area. Not to be used if given within the past 6 hours. Or hydrOXYzine HCl (VISTARIL) injection 25 mg (CANCELED) 25 mg, IntraMUSCULAR, ONCE NEEDED, MAY REPEAT X 1, 2 doses, Starting on Fri04/01/23 at 1107, Until Fri04/01/23 at 1642, Phase 1/2, for augmentation of narcotic based analgesia while in recovery area and unable to take PO. Not to be given within the past 6 hours. Group 3: ondansetron (ZOFRAN) injection 4 mgJump to med 4 mg, Intravenous, EVERY 8 HOURS NEEDED, Starting on Fri04/01/23 at 1109, Until Khloe 04/03/23 at 2133, Post-Op, nausea & vomiting Or ondansetron (ZOFRAN) disintegrating tablet 4 mgJump to med 4 mg, oral, EVERY 8 HOURS NEEDED, Starting on Fri04/01/23 at 1109, Until Khloe 04/03/23 at 2133, Post-Op, nausea & vomiting Group 4: oxyCODONE (immediate release) (ROXICODONE) tablet 5 mg (CANCELED)Jump to med 5 mg, oral, NEEDED, MAY REPEAT X1, 2 doses, Starting on Fri04/01/23 at 1107, Until Fri04/01/23 at 1642, Phase 1/2, Pain, when taking PO, pain while in recovery area Or oxyCODONE-acetaminophen (PERCOCET) 5-325 mg tablet 1 tablet (CANCELED) 1 tablet, oral, NEEDED, MAY REPEAT X1, 2 doses, Starting on Fri04/01/23 at 1107, Until Fri04/01/23 at 1642, Phase 1/2, Pain, when taking PO, pain while in recovery area Or HYDROcodone-acetaminophen (NORCO) 5-325 mg tablet 1 tablet (CANCELED) 1 tablet, oral, NEEDED, MAY REPEAT X1, 2 doses, Starting on Fri04/01/23 at 1107, Until Fri04/01/23 at 1642, Phase 1/2, Pain, when taking PO, pain while in recovery area Group 5: prochlorperazine (COMPAZINE) injection 10 mgJump to med 10 mg, Intravenous, EVERY 6 HOURS NEEDED, Starting on Fri04/01/23 at 1109, Until Khloe 04/03/23 at 2133, Post-Op, nausea & vomiting, If not relieved by ondansetron Or prochlorperazine (COMPAZINE) tablet 10 mgJump to med 10 mg, oral, EVERY 6 HOURS NEEDED, Starting on Fri04/01/23 at 1109, Until Khloe 04/03/23 at 2133, Post-Op, nausea & vomiting, If not relieved by ondansetron documented in this encounter Additional Health Concerns Infection Onset Date Last Indicated Resolved Time MRSA Comment:CLEARED by Infection Prevention 1/16/04/01/2023 04/01/2023 04/01/2023 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
--- OUTSIDE RECORDS SUMMARY | 2023-04-05 09:21 | XMS_ITS | Encounter Summary ---
Author Name Unknown Organization [place] Address [address] [facility] [place] [address] Care Team Providers Care Chain Person Name Role Phone Carolynn Alvarado Qi Primary Care Provider [phone] Ismael Ordoñez PA-C Unavailable [phone] Reason for Visit * Reason Comments RECHECK F/U from injection Encounter Details Date Type Department Care Team (Latest Contact Info) Description 08/20/2022 10:30 AM CDT Office Visit [facility] - [address], [address] [place] [address] Ismael Ordoñez PA-C [address] [facility] [address] [place], [place] [id number] S/P lumbar microdiscectomy (Primary Dx); Lumbar radiculopathy Social History Tobacco Use Types Packs/Day Years Used Date Smoking Tobacco: Never Smokeless Tobacco: Never Alcohol Use Standard Drinks/Week Comments No 0 (1 standard drink = 0.6 oz pur e alcohol) PHQ-2 Answer Date Recorded PHQ-2 Score 2 08/02/2022 Sex and Gender Information Value Date Recorded Sex Assigned at Not on file Gender Identity Not on file Sexual Orientation Not on file COVID-19 Exposure Response Date Recorded In the last 10 days, have yo u been in contact with someone who was confirmed or suspected to have Coronavirus/COVID-19? No / Unsure 08/20/2022 10:33 AM CDT documented as of this encounter Last Filed Vital Signs Vital Sign Reading Time Taken Comments Blood Pressure 136/78 08/20/2022 10:38 AM CDT Pulse 64 08/20/2022 10:38 AM CDT Temperature - - Respiratory Rate - - Oxygen Saturation 99% 08/20/2022 10:38 AM CDT Inhaled Oxygen Concentration - - Weight - - Height - - Body Mass Index - - documented in this encounter Progress Notes * Ismael Ordoñez PA-C - 08/20/2022 10:30 AM CDT Neurosurgery follow-up Ms. Franz is a 76 old female who returns to clinic for follow-up after a right L1- 2 transforaminalepidural steroid injection that was done about 10 days ago. She states she did not experience much relief either in the anesthetic phase or yet since the injection. She has a history of multiple microdiscectomies at right L1-[address] Gallagher, she had an opinion from Dr. Gallagher about further surgery and did not recommend any further operations. She would like to meet with Dr. Avelar to discuss if there is any other options. She describes bilateral back pain near the SI joints, and predominantly right leg pain and multipledistributions in her leg some going into her groin some in her anterior thigh and some down her more lateral posterior thigh. She had also previously undergone cervical revision fusion with Dr. Avelar and is doing well from that. Exam B/P: 136/78, T: Data Unavailable, P: 64, R: Data Unavailable Alert and oriented no acute distress Bilateral lower extremities appropriate strength Lumbar spine nontender to palpation. No pain with internal and external rotation of the right hip Positive straight leg raise on the right. Imaging Lumbar MRI demonstrates Lumbar MRI demonstrates severe foraminal stenosis on the right at L1 - 2, also moderate right and mild left foraminal stenosis at L2-3, moderate to severe left foraminal stenosis and moderate right foraminal stenosis at L3-4, moderate left and mild right foraminal stenosis at L4-5. ?? Assessment ?? Predominantly right leg pain, with severe stenosis at L1-2, status post multiple microdiscectomy operations at L1-2. Plan We will have the patient return to clinic to meet with Dr. Avelar at the next available opportunity. Also in the meantime if she is not finding relief from this injection over the next month or so, we could attempt another injection at the level below on the right at L 2- 3, to see if this gives her a better response. documented in this encounter Nursing Notes * Vera Westfall - 08/20/2022 10:30 AM CDT Michelle Franz is a 76 year old female who presents for: Chief Complaint Patient presents with ??? RECHECK F/U from injection Initial Vitals: BP 136/78 Pulse 64 SpO2 99% Estimated body mass index is 22.02 kg/m?? as calculated from the following: Height as of 04/04/21: 5' 5 (1.651 m). Weight as of 10/02/21: 132 lb 4.8 oz (60 kg).. There is no height or weight on file to calculate BSA. BP completed using cuff size: regular Severe Pain (7) Nursing Comments: Vera Westfall documented in this encounter Plan of Treatment Not on file documented as of this encounter Visit Diagnoses Diagnosis S/P lumbar microdiscectomy- Primary Other postprocedural status Lumbar radiculopathy Thoracic or lumbosacral neuritis or radiculitis, unspecified documented in this encounter Care Teams Chain Person Relationship Specialty Start Date End Date Carolynn Alvarado PCP - General 05/30/16 Ismael Ordoñez PA-C [address] [place] [id number] Assigned Neuroscience Provider 12/03/20 documented as of this encounter
--- OUTSIDE RECORDS SUMMARY | 2023-04-05 09:21 | XMS_ITS | Encounter Summary ---
Author Name Unknown Organization [place] Address [address] [facility] [place] [address] Care Team Providers Care Truck Driver Supervisor Name Role Phone Carolynn Alvarado Primary Care Provider [phone] Ismael Ordoñez PA-C Unavailable Reason for Referral * Consultation (Routine: Next available opening) - Pending Review Specialty Diagnoses / Procedures Referred By Contselvin t Referred To Contact Pain Medicine Diagnoses S/P lumbar microdiscectomy Lumbar radiculopathy Ismael Ordoñez PA-C [address] [facility] [address] [place] [address] Referral ID Status Reason Start Date Expiration Date V isits Requested Visits Authorized Pending Review 08/02/2022 08/02/2023 1 1 Question Answer Reason for Referral: Procedure Order Procedure: Epidural (Advanced imaging required in the last 3 years) Location: Lumbar Scheduling Instructions: [employer] will call you to coordinate care as prescribed your provider. If you don? t hear from a contact center representative within 2 business days, please call . Additional Information: Right L1-2 TFESI Comments Please be aware that coverage of these services is subject to the terms and limitations of your health insurance plan. Call member services at your health plan with any benefit or coverage questions. [employer] will call you to coordinate care as prescribed your provider. If you don? t hear from a contact center representative within 2 business days, please call . Reason for Visit * Reason Comments Consult Right sided low back pain with burning and shooting, radiates down right leg stopping above knee, numbness and tingling in upper leg outer thigh Encounter Details Date Type Department Care Team (Latest Contact Info) Description 08/02/2022 10:00 AM CDT Office Visit [facility] Neurology [facility] [place] [id number] [facility], [address] [place] [address] Ismael Ordoñez PA-C [address] [facility] [address] [place] [id number] S/P lumbar microdiscectomy (Primary Dx); Lumbar radiculopathy Social History Tobacco Use Types Packs/Day Years Used Date Smoking Tobacco: Never Smokeless Tobacco: Never Tobacco Cessation:Counseling Given: Not Answered Alcohol Use Standard Drinks/Week Comments No 0 [...] suspected to have Coronavirus/COVID-19? No / Unsure 08/02/2022 9:49 AM CDT documented as of this encounter Last Filed Vital Signs Vital Sign Reading Time Taken Comments Blood Pressure 117/76 08/02/2022 10:04 AM CDT Pulse 62 08/02/2022 10:04 AM CDT Temperature - - Respiratory Rate - - Oxygen Saturation 98% 08/02/2022 10:04 AM CDT Inhaled Oxygen Concentration - - Weight - - Height - - Body Mass Index - - documented in this encounter Progress Notes * Ismael Ordoñez PA-C - 08/02/2022 10:00 AM CDT Neurosurgery Consult HPI Ms. Franz is a 76-year-old female who underwent C5-[address] Avelar a year ago, luigi from that surgery. She also has a history of L1-2 microdiscectomy apparently performed [address] Gallagher most recently twice in 2021. After the surgery she developed pain in her right low back radiating into her right groin and her right upper thigh. She does not believe she has had a right L1-2 transforaminal epidural steroid injection, she did try some possible facet blocks at an outside clinic without much relief. She has tried physical therapy without much relief. She underwent a lumbar MRI a month ago and is here for further review. Medical history Hypertension GERD Thoracic aortic aneurysm Social history Noncontributory B/P: 117/76, T: Data Unavailable, P: 62, R: Data Unavailable Exam Alert and oriented no acute distress Bilateral lower extremities with 5/5 strength Reflexes 2+ patella/ankle Negative straight leg raise bilaterally Negative ankle clonus negative Babinski bilaterally Lumbar spine nontender to palpation in the midline, area of tenderness over the right sacroiliac joint and buttocks and close to the hip. Able to stand on heels and toes Gait is normal Imaging Lumbar MRI demonstrates severe foraminal stenosis on the right at L1 - 2, also moderate right and mild left foraminal stenosis at L2-3, moderate to severe left foraminal stenosis and moderate right foraminal stenosis at L3-4, moderate left and mild right foraminal stenosis at L4-5. Assessment Predominantly right leg pain, with severe stenosis at L1-2, status post multiple microdiscectomy operations at L1-2. Plan: I recommend the patient attempt a right L1-2 transforaminal epidural steroid injection, and return to clinic to follow-up once that is done, if it provides her significant relief in the anesthetic phase that would help us with diagnosing where the origin of her pain is coming from. documented in this encounter Nursing Notes * Teresa Das - 08/02/2022 10:00 AM CDT Michelle Franz is a 76 year old female who presents for: Chief Complaint Patient presents with ??? Consult Right sided low back pain with burning and shooting, radiates down right leg stopping above knee, numbness and tingling in upper leg outer thigh Initial Vitals: BP 117/76 Pulse 62 SpO2 98% Estimated body mass index is 22.02 kg/m?? as calculated from the following: Height as of 04/04/21: 5' 5 (1.651 m). Weight as of 10/02/21: 132 lb 4.8 oz (60 kg).. There is no height or weight on file to calculate BSA. BP completed using cuff size: regular Extreme Pain (8) Nursing Comments: Teresa Das documented in this encounter Plan of Treatment Scheduled Referrals Name Type Priority Associated Diagnoses Orde r Schedule Pain Management Storage Administrator Referral Referral Routine: Next available opening S/P lumbar microdiscectomy Lumbar radiculopathy Expected: 08/02/2022 (Approximate), Expires: 08/03/2023 documented as of this encounter Visit Diagnoses Diagnosis S/P lumbar microdiscectomy- Primary Other postprocedural status Lumbar radiculopathy Thoracic or lumbosacral neuritis or radiculitis, unspecified documented in this encounter Care Teams Truck Driver Supervisor Relationship Specialty Start Date End Date Carolynn Alvarado PCP - General 05/30/16 Ismael Ordoñez PA-C [address] [place] [address] Assigned Neuroscience Provider 12/03/20 documented as of this encounter
--- OUTSIDE RECORDS SUMMARY | 2023-04-05 09:21 | XMS_ITS | Encounter Summary ---
Author Name Unknown Organization [facility] Address [address] [place] [address] Care Team Providers Care Diesel Pile Hammer Operator Name Role Phone Carolynn Alvarado MD Primary Care Provider [phone] Encounter Details Date Type Department Care Team (Latest Contact Info) Description 03/12/2023 Travel Social History Tobacco Use Types Packs/Day Years Used Date Smoking Tobacco: Never Assessed Sex and Gender Information Value Date Recorded Sex Assigned at Female 03/11/2023 11:10 AM BROKERAGE CLERK Gender Identity Female 03/11/2023 11:10 AM BROKERAGE CLERK Sexual Orientation Straight 03/11/2023 11 :10 AM BROKERAGE CLERK documented as of this encounter Plan of Treatment Not on file documented as of this encounter Visit Diagnoses Not on filedocumented in this encounter Care Teams Diesel Pile Hammer Operator Relationship Specialty [place] [address] [address] [place] [id number] PCP - General Internal Medicine 03/12/23 04/01/23 documented as of this encounter
--- OUTSIDE RECORDS SUMMARY | 2023-04-05 09:21 | XMS_ITS | Encounter Summary ---
Author Name Unknown Organization [place] Address [address] [place] [address] Care Team Providers Care Returned Telephone Equipment Appraiser Name Role Phone Carolynn Alvaraod Primary Care Provider [phone] Morgan Avelar MD Unavailable Ismael Ordoñez PA-C Unavailable [phone] Encounter Details Date Type Department Care Team (Late st Contact Info) Description 10/20/2020 MyC Medical Advice [facility] [address] [address] Rachna Thomas APRN [facility] [address] [place] [address] [address] [place], [place] [id number] Social History Tobacco Use Types Packs/Day Years Used Date Smoking Tobacco: Never Smokeless Tobacco: Never Alcohol Use Standard Drinks/Week Comments No 0 (1 standard drink = 0.6 oz pur e alcohol) PHQ-2 Answer Date Recorded PHQ-2 Score 0 03/25/2018 Sex and Gender Information Value Date Recorded Sex Assigned at Not on file Gender Identity Not on file Sexual Orientation Not on file COVID-19 Exposure Response Date Recorded In the last month, have you been in contact with someone who was confirmed or suspected to have Coronavirus / COVID-19? No / Unsure 10/11/2020 8:23 AM CDT documented as of this encounter Plan of Treatment Not on file documented as of this encounter Visit Diagnoses Not on filedocumented in this encounter Care Teams Returned Telephone Equipment Appraiser Relationship Specialty Start Date End Date Hilario Alvaradocrystal Busby PCP - General 05/30/16 [place] [address] [place] [id number] Assigned Neuroscience Provider 01/30/20 12/02/20 Ismael Ordoñez PA-C [address] [place] [address] Assigned Neuroscience Provider 12/03/20 documented as of this encounter
--- OUTSIDE RECORDS SUMMARY | 2023-04-05 09:21 | XMS_ITS | Referral Summary ---
Author Name Unknown Organization [place] Address [address] [facility] [place] [address] Care Team Providers Care Glass Cylinder Flanger Name Role Phone Carolynn Alvarado Primary Care Provider [phone] Ismael Ordoñez PA-C Unavailable [phone] Allergies Active Allergy Reactions Criticality Noted Date Comments Lisinopril 04/23/2016 Headache Medications Medication Sig Dispensed Refills Start Date End Date Status atenolol (TENORMIN) 25 MG tablet Take 25 mg by mouth every evening 0 Active AmLODIPine Besylate (NORVASC PO) Take 10 mg by mouth every morning 0 Active desipramine (NORPRAMIN) 25 MG tablet Take 25 mg by mouth every morning 0 Active DULoxetine (CYMBALTA) 60 MG capsule Take 60 mg by mouth every evening 0 Active order for DMEIndications:Pse udoarthrosis of cervical spine, initial encounter (H),Neck pain Orthofix bone growth stimulator: cervical 1 Device 0 11/13/2016 Active famotidine (PEPCID) 20 MG tablet Take 20 mg by mouth as needed 0 03/24/2019 Active LORazepam (ATIVAN) 0.5 MG tablet Take 0.5 mg by mouth At Bedtime 0 11/15/2019 Active methocarbamol (ROBAXIN) 750 MG tabletIndications: Pseudoarthrosis of cervical spine, subsequent encounter Take 1 tablet (750 mg) by mouth every 6 hours as needed for muscle spasms 60 tablet 1 10/12/2020 Active oxyCODONE (ROXICODONE) 5 MG tabletIndications: Pseudoarthrosis of cervical spine, subsequent encounter Take 1-2 tablets (5-10 mg) by mouth every 4 hours as needed for moderate to severe pain 30 tablet 0 10/12/2020 Active senna-docusate (SENOKOT-S/PERICOL JAS) 8.6-50 MG tabletIndications: Pseudoarthrosis of cervical spine, subsequent encounter Take 1 tablet by mouth 2 times daily as needed for constipation 30 tablet 1 10/12/2020 Active Active Problems Problem Noted Date Diagnosed Date Pseudoarthrosis of cervical spine, subsequent en counter 06/05/2020 Overview: Added automatically from request for surgery [id number] Resolved Problems Problem Noted Date Diagnosed Date Resolved Date Displacement of lumbar inter vertebral disc without myelopathy 07/08/2016 08/23/2016 Surgical aftercare, musculoskeletal system 07/08/2016 08/23/2016 Social History Tobacco Use Types Packs/Day Years Used Date Smoking Tobacco: Never Smokeless Tobacco: Never Tobacco Cessation:Counseling Given: Not Answered Alcohol Use Standard Drinks/Week Comments No 0 (1 standard drink = 0.6 oz pur e alcohol) PHQ-2 Answer Date Recorded PHQ-2 Score 2 08/02/2022 Adolescent Education Answer Date Record ed Getting School Help Needed Not on file 12/08 Sex and Gender Information Value Date Recorded Sex Assigned at Not on file Gender Identity Not on file Sexual Orientation Not on file Last Filed Vital Signs Vital Sign Reading Time Taken Comments Blood Pressure 136/78 08/20/2022 10:38 AM CDT Pulse 64 08/20/2022 10:38 AM CDT Temperature 37 ??C (98.6 ??F) 03/03/2021 9:14 AM MAINTENANCE REPRESENTATIVE Respiratory Rate 18 03/03/2021 9:14 AM MAINTENANCE REPRESENTATIVE Oxygen Saturation 99% 08/20/2022 10:38 AM CDT Inhaled Oxygen Concentration - - Weight 60 kg (132 lb 4.8 oz) 10/02/2021 10:20 AM CDT Height 165.1 cm (5' 5) 04/04/2021 10:30 AM MAINTENANCE REPRESENTATIVE Body Mass Index 22.02 04/04/2021 10:30 AM MAINTENANCE REPRESENTATIVE Plan of Treatment Not on file Medical Devices Implanted Type Area Meter Repairer Device Identifier Shelf Expiration Date Model / Serial / Lot Graft Bone Crush Canc 15ml [id number] - [id number] Implanted:Qty : 1 on 10/11/2020 by Morgan Avelar MD at [facility] Bone/Ti ssue/Bi ologic N/A: Spine Cervical MUSCULOSKELETAL [place] 05/26/2023 [id number] / [id number] / 30mm Jarred Implanted:Qty : 2 on 10/11/2020 by Morgan Avelar MD at [facility] N/A: Spine Cervical [employer] [id number] / / [id number] Advance Directives For more information, please contact: [phone] Latest Code Status on File Code Status Date Activated Date Inactivated Comments Full Code 10/11/2020 4:55 PM 10/12/2020 9:40 PM All b asic and advanced life-sustaining interventions are performed as appropriate Question Answer Comments Code status determined by: Discussion with patient/ legal decision maker Code Status History Code Status Date Activated Date Inactivated Comments Full Code 05/30/2016 2:45 PM 10/11/2020 8:24 AM Care Teams Glass Cylinder Flanger Relationship Specialty Start Date End Date Carolynn Alvarado PCP - General 05/30/16 Ismael Ordoñez PA-C [address] [place] [address] Assigned Neuroscience Provider 12/03/20
--- OUTSIDE RECORDS SUMMARY | 2023-04-05 09:21 | XMS_ITS | Encounter Summary ---
Author Name Unknown Organization [facility] Address [address] [place] [address] Care Team Providers Care Blow Mold Machine Operator Name Role Phone Carolynn Alvarado MD Primary Care Provider [phone] Encounter Details Date Type Department Care Team (Latest Contact Info) Description 03/26/2023 Travel Social History Tobacco Use Types Packs/Day Years Used Date Smoking Tobacco: Never Smokeless Tobacco: Never Alcohol Use Standard Drinks/Week Comments Never 0 (1 standard drink = 0.6 oz pur e alcohol) Sex and Gender Information Value Date Recorded Sex Assigned at Female 03/11/2023 11:10 AM MACHINE TECH Gender Identity Female 03/11/2023 11:10 AM MACHINE TECH Sexual Orientation Straight 03/11/2023 11 :10 AM MACHINE TECH documented as of this encounter Plan of Treatment Not on file documented as of this encounter Visit Diagnoses Not on filedocumented in this encounter Care Teams Blow Mold Machine Operator Relationship Specialty [place] [address] [address] [place] [address] PCP - General Internal Medicine 03/12/23 04/01/23 documented as of this encounter
--- OUTSIDE RECORDS SUMMARY | 2023-04-05 09:21 | XMS_ITS | Encounter Summary ---
Author Name Unknown Organization [facility] Address [address] [place] [address] Care Team Providers Care Contract Writer Name Role Phone Carolynn Alvarado MD Primary Care Provider [phone] Reason for Visit * Inpatient Admission (Routine) [...] Expiration Date Visits Re quested Visits Authorized [id number] 1 Encounter Details Date Type Department Care Team (Late st Contact Info) Description 04/01/2023 7:25 AM OPAL POLISHER - 04/01/2023 11:50 AM OPAL POLISHER Surgery [facility] Operating Room [address] [place] [address] Isai Foss MD [address] [place] [address] L1-5 POSTERIOR FUSION WITH INSTRUMENTATION WITH NEURO MONITORING Surgery Details Date/Time Status Location OR Service Patient Class Case Class Case Type Trauma Case? 04/01/23 7:25 AM Posted NMR ORS 17 Orthopedic Admit Following Surgery Panel 1 Procedure LRB Anes Op Region Wound Class Comments L1-5 POSTERIOR FUSION WITH INSTRUMENTATION WITH NEURO MONITORING Bilateral General Back Clean (I) Surgeon Surgeon Role Service Panel Isai Foss MD Primary Orthopedic 1 documented in this encounter Social History Tobacco Use Types Packs/Day Years Used Date Smoking Tobacco: Never Smokeless Tobacco: Never Tobacco Cessation:Counseling Given: Not Answered Alcohol Use Standard Drinks/Week Comments Never 0 (1 standard drink = 0.6 oz pur e alcohol) [facility] Utilities Answer Date Recorded In the past 12 months has th e electric, gas, oil, or water company threatened to shut off services in your [...] place to sleep or slept in a snf (including now)? No 04/01/2023 Sex and Gender Information Value Date Recorded Sex Assigned at Female 03/11/2023 11:10 AM OPAL POLISHER Gender Identity Female 03/11/2023 11:10 AM OPAL POLISHER Sexual Orientation Straight 03/11/2023 11 :10 AM OPAL POLISHER documented as of this encounter Last Filed Vital Signs Vital Sign Reading Time Taken Comments Blood Pressure 102/59 04/01/2023 11:45 AM OPAL POLISHER Pulse 65 04/01/2023 11:45 AM OPAL POLISHER Temperature 36.6 ??C (97.9 ??F) 04/01/2023 11:[address] Respiratory Rate 16 04/01/2023 11:45 AM OPAL POLISHER Oxygen Saturation 100% 04/01/2023 11:45 AM OPAL POLISHER Inhaled Oxygen Concentration - - Weight 62.1 kg (137 lb) 03/26/2023 1:50 PM OPAL POLISHER Height 162.6 cm (5' 4) 03/26/2023 1:50 PM OPAL POLISHER Body Mass Index 25.58 04/01/2023 4:45 PM OPAL POLISHER documented in this encounter Medications at Time [...] BONE GROWTH STIMULATOR)Indications: S/P lumbar fusion Company: [employer] - for home use. 1 each 0 [...] 04/03/2023 3:17 PM CST Michelle Franz 1945 [id number] P: Discharge A: Discharged via wheelchair to home at 1513 escorted by nursing surgical services director I: Discharge information and arrangements included: review of written discharge instructions, review of purpose and side effects of new medication R:Patient expressed understanding of information. POLISHER * Julius Ann MD - 04/03/2023 11:42 [...] iron pills. Patient would like to buy vhyr-dmo-lobrlsh iron pills. Hypertension; -Continue MARKETING COMMUNICATIONS COORDINATOR amlodipine and atenolol Chronic pain; Continue Cymbalta [...] mg, oral, TID, 1,000 mg at 04/03/23 08 OR acetaminophen (TYLENOL) rectal suppository 650 mg, 650 mg, Rectal, TID, Nj Thorne PA-C amLODIPine (NORVASC) tablet 10 mg, 10 mg, oral, DAILY, Bonita Estrada MD, 10 mg at 04/03/23 08 atenolol (TENORMIN) tablet 25 mg, 25 mg, oral, DAILY, Bonita Estrada MD, 25 mg at 04/03/23 08 D50W IV syringe 25-50 mL, 25-50 mL, [...] PRN, Julius Ann MD, 0.5 mg at 04/02/23 2304 hydrOXYzine HCl (VISTARIL) injection 50 mg, 50 [...] Nj Thorne PA-C, 4 mg at 04/03/23 1023 LABS Recent [...] : Prior to Admission Julius Ann MD [facility] Medicine POLISHER * Larry Carrasco, PT - 04/03/2023 9:37 AM CST Physical Therapy PT orders received and acknowledged. Greeted pt at bedside this morning, pt emotional and reportinghigh pain levels along with distress regarding upcoming discharge. Pt declining PT at this time, reporting she has a walker at home, 3 TIM, and available assist from her daughter who lives very closeby. Food Products Tester attempted to encourage pt to participate in evaluation in order to full assess pt's ability to return home safely, pt declined. PT will continue to follow, plan to re-attempt PT evaluationat another time. Larry Carrasco, PT, DPT POLISHER * Trevon Buenrostro PA-C - 04/03/2023 8:38 [...] Clonus bilateral Trevon Buenrostro PA-C 8:39 AM [facility] Office: [phone] POLISHER * Daisha Kam RN - 04/03/2023 5:51 [...] I- Invasive Devices: PIVx2, D- Discharge: TBD POLISHER * Tamy Sosa RN - 04/02/2023 10:30 PM CST [id number] BP soft this shift, 500cc NS Bolus given with improvement. Pt c/o back pain, scheduled tylenol and PRN Oxycodone given. Pt does not want Vistaril. Zanaflex available at 2300. Pt frequently asking forIV dilaudid. Declining scheduled bowel meds. Up to [facility] with LSO and walker Ax1, was able to walk around room SBA without any limitations, gait slow but steady. Needs to wok with PT. Tamy Sosa RN POLISHER * Ros Landis MD - 04/02/2023 8:08 PM CST BRIEF CROSS COVER NOTE Paged by bedside nursing regarding hypotension, 91/52, MAP 65. Plan: NS 500mL bolus ordered Ros Landis MD POLISHER * Seymour Marvin, RN - 04/02/2023 4:01 [...] Home possibly on 04/03. Dtr will transport. POLISHER * Juanita Levin, PT - 04/02/2023 11:49 [...] third time today. Will attempt again tomorrow. POLISHER * Julius Ann MD - 04/02/2023 10:49 AM CST HOSPITALIST [...] -Repeat hemoglobin ordered this afternoon. Hypertension; -Continue MARKETING COMMUNICATIONS COORDINATOR amlodipine and atenolol Chronic pain; Continue Cymbalta [...] Bonita Estrada MD, 10 mg at 04/02/23 08 atenolol (TENORMIN) tablet 25 mg, 25 mg, [...] PRN, Shayne Thorne PA-C, 10 mg at 04/02/23 1020 potassium chloride [...] : Prior to Admission Julius Ann MD [facility] Medicine POLISHER * Trevon Buenrostro PA-C - 04/02/2023 9:02 [...] Otherwise WNL. Trevon Buenrostro PA-C 12:32 PM [facility] Office: [phone] POLISHER * Kpasie, Kunal, RN - 04/02/2023 2:48 AM CST Med-Surg [...] Invasive Devices: PIVx2, garrett D- Discharge: TBD POLISHER * Bonita Estrada MD - 04/01/2023 7:37 [...] DVT prophylaxis: Surgery Disposition: Per surgery Access. [facility] Service POLISHER * Janice Arriaza RN - 04/01/2023 6:45 [...] to call for help, name of assigned critical care unit nurse, initialphysician orders, hourly rounding procedures, belongings checklist, unit and plan of care. R. Patient expressed understanding of information.. Janice Arriaza RN POLISHER * Isaac Buenrostro - 04/01/2023 4:43 PM CST [facility] [phone] Patient seen in room today for fitting of an Friedens LSO. Brace was fit, the use and care was covered, Overall fit of the brace after I finished looks good. Patient to follow wearing parameters set by ordering provider. Please reach out with any further questions or concerns. Isaac Ying/LPVISHNU C/LOF POLISHER * Jolene Guzmán - 04/01/2023 11:11 AM CST S: Infection/Isolation Review B: Patient with history of MDRO requires isolation to prevent transmission in the healthcare setting A: Patient meets facility clearing protocol for MRSA R: Discontinue Contact Precautions. Manage cares using Standard Precautions. Infection Prevention [id number] POLISHER documented in this encounter Consult Notes * [...] Patient Seen In: Room Family/Caregiver Present: No Sap Portal Developer Used?: NA Hearing: Within Functional Limits Lines and Tubes: Garrett Catheter PRECAUTIONS Precautions Devices/Equipment Required: Lumbar Spine Orthosis Precautions: Spinal SAFETY INTERVENTIONS Safety Interventions Fall Risk?: Yes Safety Interventions/Patient Disposition: Standard interventions, Peter sitter on, Seated positioning system in place, [...] live 30 steps away. Both are supportive, samaraugher works from home. PRIOR FUNCTION ADL/IADL Prior [...] slip on shoes in figure four stance [facility] set up assist.) FUNCTIONAL MOBILITY Bed [...] Frame Short term goals target date: 04/02/23 FPC goals target date: 04/02/23 Patient/Family Participation in [...] ADLs and functional transfers. Outcome: Goal Met Control Officer Manager Goals Patient will complete ADLs including: feeding, hygiene/grooming, dressing, toileting, with set-up/supervision Outcome: Goal Met POLISHER documented in this encounter Nursing Notes * Seymour Marvin RN - 04/03/2023 9:12 AM CST Problem: Pain - Acute Goal: Exhibits reduction in pain to an acceptable level of comfort Outcome: Ongoing Problem: Mobility - Impaired Goal: Demonstrates ability to perform physical activity independently or with assistive devices as needed Outcome: Ongoing POLISHER * Daisha Kam RN - 04/03/2023 1:17 AM CST Problem: Pain - Acute Goal: Exhibits reduction in pain to an acceptable level of comfort Outcome: Met this shift Problem: Respiratory Status - Altered, Actual or Risk of Goal: Exhibits no signs or symptoms of respiratory distress Outcome: Met this shift Problem: Falls/Injury-Risk of Goal: Absence of Falls/Injury Outcome: Met this shift POLISHER Seymour Riggs RN - 04/02/2023 3:49 PM CST Problem: [...] [id number] by Seymour Marvin RN Outcome: Ongoing POLISHER * Seymour Marvin RN - 04/02/2023 8:51 AM CST Problem: Pain - Acute Goal: Exhibits reduction in pain to an acceptable level of comfort Outcome: Ongoing Problem: Mobility - Impaired Goal: Demonstrates ability to perform physical activity independently or with assistive devices as needed Outcome: Ongoing POLISHER * Kunal Morrow RN - 04/02/2023 2:48 [...] used to reduce pain sensation Outcome: Ongoing POLISHER * Janice Arriaza RN - 04/01/2023 6:52 PM CST Problem: Falls/Injury-Risk of Goal: Absence of Falls/Injury Outcome: Met this shift Flowsheets (Taken 04/01/2023 6669) Environmental Safety Interventions: Standard Interventions in Place Fall Risk Light on Outside Patient Room Fall Risk professor of communication Door (NMR) High Risk Armband On (Green Bracelet) Problem: Pain - Acute Goal: Exhibits reduction in pain to an acceptable level of comfort Outcome: Met this shift Problem: Respiratory Status - Altered, Actual or Risk of Goal: Exhibits no signs or symptoms of respiratory distress Outcome: Met this shift POLISHER * Florian Franz RN - 04/01/2023 4:27 PM CST Pt a/o x 3. VSS sats WNL on RA. Drsg C/D/I. Neros 5/5 denies numbness. In LE. Pain 2-3/10 denies nausea. Report called to RN A7 POLISHER * Amie Mclaughlin RN - 04/01/2023 11:10 AM CST INfectious disease updated on ot h/o MRSA 12 years ago for follow up POLISHER documented in this encounter OR Notes * OR Surgeon - Isai Foss MD - 04/01/2023 8:51 AM CST OPERATIVE REPORT Michelle Franz 1945 SURGEON: Isai Foss MD PLISSE MACHINE OPERATOR (posterior) STANISLAV Estrada PREOPERATIVE DIAGNOSES: POSTOPERATIVE DIAGNOSIS: Same PROCEDURES: 1. L1-L5 posterolateral spinal fusion 2. L1-L5 posterior instrumentation 3. Allograft, local autograft placed posterolaterally 4. C-arm for intraoperative level localization and hardware evaluation. ANESTHESIA: General, local. COMPLICATIONS: None. SPECIMENS: None. IMPLANTS: Implant Name Type Inv. Item Serial No. Access Lead Lot No. LRB No. Used Action NMP FIBERS LARGE - [id number] Bone NMP FIBERS LARGE [id number] [employer] N/A 1 Implanted NMP FIBERS LARGE - [id number] Bone NMP FIBERS LARGE [id number] [employer] N/A 1 Implanted NMP FIBERS LARGE - [id number] Bone NMP FIBERS LARGE [id number] [employer] N/A 1 Implanted INFUSE MED - [id number] Prosthetic Implant Non-Specific INFUSE MED [employer] [id number] N/A 1 Implanted CANCELLOUS CHIPS 30CC - [id number] Bone CANCELLOUS CHIPS 30CC [id number] Medtronic Inc N/A 1 Implanted CANCELLOUS CHIPS 60CC - [id number] Bone CANCELLOUS CHIPS 60CC [id number] Medtronic Inc N/A 1 Implanted CANCELLOUS CHIPS 30CC - [id number] Bone CANCELLOUS CHIPS 30CC [id number] Medtronic Inc N/A 1 Implanted CREO 5.5 [...] the PACU for further cares. Postoperative plan: Friedens Standing AP and lateral scoliosis x-rays prior to discharge Avoid significant bending, lifting, twisting for 3 months minimum Stanislav Estrada provided assistance with preoperative positioning, prepping, and draping of the patient. The floral assistant provided vital operative assistance with retraction using instruments best providing the necessary exposure and visualization for the case, manipulation of tissues to achieve hemostasis, suction for visualization and assisted in wound closure. Postoperatively they assisted in the transfer of the patient off of the operative table and transition into the post anesthesia care unit with transition of care being made to the anesthesiologist. POLISHER * Brief Op Note - Nj Thorne [...] The procedure was medically necessary for an floral assistant because Dr. Foss needed the operative exposure and assistance that I provided. This allowed him to safely and efficiently operate. It was also important that I help ligate blood vessels to maintain hemostasis and reduce the bleeding risk. The assistance that I provided reduced operative time which meant less general anesthetic for the patient. Nj Thorne PA-C POLISHER documented in this encounter Plan of Treatment Scheduled Referrals Name Type Priority Associated Diagnoses Orde r Schedule Follow Up Follow Up Routine Ordered: 04/02 Follow Up Follow Up Routine Ordered: 04/03 documented as of this encounter Procedures Procedure Name Priority Date/Time Associated Diagnosis Comments HEMOGLOBIN Routine 04/03/2023 7:00 AM OPAL POLISHER HEMOGLOBIN Timed Procedure 04/02/2023 3:26 PM OPAL POLISHER XR SPINE LUMBAR ROUTINE STAT 04/02/2023 10:43 AM OPAL POLISHER EXTRA TUBE-SST (LAB USE ONLY) Routine 04/02/2023 7:28 AM OPAL POLISHER HEMOGLOBIN Routine 04/02/2023 7:28 AM OPAL POLISHER XR C-ARM SPINE STAT 04/01/2023 10:36 AM OPAL POLISHER SPIN BONE AUTOGRFT LOCAL 04/01/2023 7:29 AM OPAL POLISHER Degeneration of lumbar intervertebral disc ALLOGRAFT FOR SPINE SURGERY ONLY MORSELIZED 04/01/2023 7:29 AM OPAL POLISHER Degeneration of lumbar intervertebral disc INSERT VERT FIX DEV,POST,3-6 * 04/01/2023 7:29 AM OPAL POLISHER Degeneration of lumbar intervertebral disc SPINE FUSN,POST TECH,EA ADDNL* 04/01/2023 7:29 AM OPAL POLISHER Degeneration of lumbar intervertebral disc ARTHRODESIS POSTERIOR/POSTEROLAT ERAL LUMBAR 04/01/2023 7:29 AM OPAL POLISHER Degeneration of lumbar intervertebral disc ABORH CONFIRM (LAB USE ONLY) STAT 04/01/2023 6:47 AM OPAL POLISHER TYPE AND SCREEN STAT 04/01/2023 6:46 AM OPAL POLISHER PROTIME/INR STAT 04/01/2023 6:46 AM OPAL POLISHER PARTIAL THROMBOPLASTIN TIME STAT 04/01/2023 6:46 AM OPAL POLISHER HEMOGLOBIN STAT 04/01/2023 6:46 AM OPAL POLISHER HEMATOCRIT STAT 04/01/2023 6:46 AM OPAL POLISHER POCT GLU METER STAT 04/01/2023 6:12 AM OPAL POLISHER documented in this encounter Results * (ABNORMAL) Hemoglobin (04/03/2023 7:00 AM OPAL POLISHER) Only the most recent of4 resultswithin the time period is included. Hemoglobin 8.5(L) 12.0 - 16.0 gm/dL 04/03/2023 7:25 AM OPAL POLISHER [facility] Blood 04/03/2023 7:00 AM OPAL POLISHER 04/03/2023 7:17 AM OPAL POLISHER Nj Thorne PA-C HEMATOLOGY ORDERA BLE [facility] [address] [place], [place] [id number] * XR SPINE LUMBAR ROUTINE (04/02/2023 10:43 AM OPAL POLISHER) Anatomical Region Laterality Modality Spine Computed Radiogr aphy 04/02/2023 11:2 7 AM OPAL POLISHER Impressions 04/02/2023 11:29 AM OPAL POLISHER IMPRESSION: 1. Operative changes of posterior danny and pedicle screw fixation L1-L5 with posterolateral bone graft material, grossly negative for postoperative purposes. Lumbar vertebral body alignment described in more detail above. 2. Old superior and inferior pubic rami fractures. REPORT SIGNED BY Janice Talavera M.D. Narrative 04/02/2023 11:29 AM OPAL POLISHER EXAM: ??XR SPINE LUMBAR ROUTINE DATE: 04/02/2023 [...] Tube-SST (Lab Use Only) (04/02/2023 7:28 AM OPAL POLISHER) Blood 04/02/2023 7:28 AM OPAL POLISHER 04/02/2023 7:53 AM OPAL POLISHER Bonita Estrada MD CHEMISTRY ORDERABLE [facility] [address] [place] [address] * XR C-ARM SPINE (04/01/2023 10:36 AM OPAL POLISHER) Anatomical Region Laterality Modality Computed Radiogr aphy 04/01/2023 12:3 5 PM OPAL POLISHER Impressions 04/01/2023 12:37 PM OPAL POLISHER IMPRESSION: 1. ??Procedural assistance. REPORT SIGNED BY DR. MARCUS JUNE Narrative 04/01/2023 12:37 PM OPAL POLISHER EXAM: ??XR C-ARM SPINE DATE: ?? 04/01/2023 [...] Confirm (Lab Use Only) (04/01/2023 6:47 AM OPAL POLISHER) Group and Rh O Positive 04/01/2023 9:09 AM [facility] Blood 04/01/2023 6:47 AM OPAL POLISHER 04/01/2023 7:26 AM OPAL POLISHER Nj Thorne PA-C BLOOD BANK ORDERA BLE [facility] [address] [address] [place] [address] * Hematocrit (04/01/2023 6:46 AM OPAL POLISHER) Hematocrit 37.3 36.0 - 48.0 % 04/01/2023 7:07 AM [facility] Blood 04/01/2023 6:46 AM OPAL POLISHER 04/01/2023 6:50 AM OPAL POLISHER Nj Deonna Thorne PA-C HEMATOLOGY ORDERA BLE Performing Organization Address [facility] Co de Phone Number [facility] [address] [place] [address] * Type and Screen (04/01/2023 6:46 AM OPAL POLISHER) [facility] Group and Rh O Positive 04/01/2023 7:39 AM OPAL POLISHER [facility] Antibody Screen Negative 04/01/2023 7:39 AM OPAL POLISHER [facility] Blood 04/01/2023 6:46 AM OPAL POLISHER 04/01/2023 6:50 AM OPAL POLISHER Nj Thorne PA-C BLOOD BANK ORDERA BLE Performing Organization Address [facility] de Phone Number [facility] [address] [place] [address] [facility] [address] [place] [address] * Partial Thromboplastin Time (04/01/2023 6:46 AM OPAL POLISHER) [facility] PTT 28.8 24.0 - 31.0 SEC. 04/01/2023 7:06 AM [facility] Blood 04/01/2023 6:46 AM OPAL POLISHER 04/01/2023 6:50 AM OPAL POLISHER Narrative [facility] - 04/01/2023 7:06 AM OPAL POLISHER aPTT Therapeutic Reference Ranges: Argatroban protocol: 60 - 85 seconds Bivalirudin protocol: 43 - 71 seconds Nj Deonna Thorne PA-C COAGULATION ORDER ABLE Performing Organization Address [facility] Co de Phone Number [facility] [address] [place] [address] * Protime/INR (04/01/2023 6:46 AM OPAL POLISHER) INR 1.0 0.9 - 1.2 04/01/2023 7:06 AM OPAL POLISHER [facility] Blood 04/01/2023 6:46 AM OPAL POLISHER 04/01/2023 6:50 AM OPAL POLISHER Nj Thorne PA-C COAGULATION ORDER ABLE Performing Organization Address [facility] Co de Phone Number [facility] [address] [place] [address] * (ABNORMAL) POCT Glucose Meter (04/01/2023 6:12 AM OPAL POLISHER) [facility] GLUCOSE WB METER 105(H) 60 - 100 mg/dL 04/01/2023 6:38 AM OPAL POLISHER [facility] Blood 04/01/2023 6:12 AM OPAL POLISHER 04/01/2023 6:38 AM OPAL POLISHER Isai Foss MD LAB POINT OF CARE TE ST RESULTS Performing Organization Address [facility] Co de Phone Number [facility] [address] [place] [address] documented in this encounter Visit Diagnoses Diagnosis Lumbar radiculopathy- Primary Thoracic or lumbosacral neuritis or radiculitis, unspecified Atrial fibrillation, unspecified type (HCC) Degeneration of lumbar intervertebral disc Degeneration of lumbar or lumbosacral intervertebral disc documented in this encounter Admitting Diagnoses Diagnosis [...] Until Discontinued, Post-Op Given 04/03/2023 1:15 PM OPAL POLISHER 1,000 mg Given 04/03/2023 8:12 AM OPAL POLISHER 1,000 mg Given 04/02/2023 10:15 PM OPAL POLISHER 1,000 mg amLODIPine (NORVASC) tablet 10 mg 10 mg, oral, DAILY, First dose on Fri04/02/23 at 0800, Until Discontinued Given 04/03/2023 8:11 AM OPAL POLISHER 10 mg Given 04/02/2023 8:08 AM OPAL POLISHER 10 mg atenolol (TENORMIN) tablet 25 mg 25 mg, oral, DAILY, First dose on Fri04/02/23 at 0800, Until Discontinued Given 04/03/2023 8:11 AM OPAL POLISHER 25 mg Given 04/02/2023 8:08 AM OPAL POLISHER 25 mg BUPivacaine 0.25%-EPINEPHrine 1:200,000 (PF) (SENSORCAINE) injection INTRA-PROCEDURE NEEDED, Starting on Fri04/01/23 at 0928, Until Fri04/01/23 at 1119, Intra-Op Given 04/01/2023 8:55 AM OPAL POLISHER 50 mL Procedural D50W IV syringe 25-50 mL 25-50 mL, [...] 2030, Until Discontinued Given 04/02/2023 7:57 PM OPAL POLISHER 20 mg Given 04/01/2023 8:12 PM OPAL POLISHER 20 mg DULoxetine (CYMBALTA) delayed release capsule 60 mg 60 mg, oral, DAILY, First dose on Fri04/01/23 at 2030, Until Discontinued Given 04/02/2023 7:57 PM OPAL POLISHER 60 mg Given 04/01/2023 8:11 PM OPAL POLISHER 60 mg famotidine (PEPCID) tablet 20 mg 20 mg, oral, DAILY, First dose on Fri04/01/23 at 2030, Until Discontinued Given 04/03/2023 8:11 AM OPAL POLISHER 20 mg Given 04/02/2023 8:08 AM OPAL POLISHER 20 mg Given 04/01/2023 8:11 PM OPAL POLISHER 20 mg glucagon, human recombinant (Glucagen) injection (conc: 1 mg/mL) 1 mg 1 mg, IntraMUSCULAR, EVERY 15 MINUTES NEEDED, 2 doses, Starting on Fri04/01/23 at 1109, Until Fri04/03/23 at 2133, Post-Op, for hypoglycemia HYDROmorphone (DILAUDID) syringe 0.5 mg 0.5 mg, Intravenous, EVERY 4 HOURS NEEDED, Starting on Fri04/02/23 at 1141, Until Fri04/03/23 at 2133, Post-Op, Pain, when NOT taking PO, Pain, if oral opioid not effective or tolerated Given 04/02/2023 11:04 PM OPAL POLISHER 0.5 mg Given 04/02/2023 5:37 PM OPAL POLISHER 0.5 mg Given 04/02/2023 1:21 PM OPAL POLISHER 0.5 mg hydrOXYzine HCl (VISTARIL) injection 50 mg 50 mg, IntraMUSCULAR, EVERY 3 HOURS NEEDED, Starting on Fri04/01/23 at 1109, Until Fri04/03/23 at 2133, Post-Op, to enhance pain control of analgesics hydrOXYzine pamoate (Vistaril) capsule 50 mg 50 mg, oral, EVERY 3 HOURS NEEDED, Starting on Fri04/01/23 at 1109, Until Fri04/03/23 at 2133, Post-Op, to enhance pain control of analgesics Given 04/03/2023 2:37 AM OPAL POLISHER 50 mg Given 04/01/2023 9:28 PM OPAL POLISHER 50 mg naloxone (NARCAN) injection 0.1 mg 0.1 mg, Intravenous, EVERY 1 MINUTE PRN, Starting on Fri04/01/23 at 1109, Until Fri04/03/23 at 2133, Post-Op, Opiate Reversal ondansetron (ZOFRAN) disintegrating tablet 4 mg 4 mg, oral, EVERY 8 HOURS NEEDED, Starting on Fri04/01/23 at 1109, Until Fri04/03/23 at 2133, Post-Op, nausea & vomiting Given 04/03/2023 2:40 AM OPAL POLISHER 4 mg ondansetron (ZOFRAN) injection 4 mg 4 mg, Intravenous, EVERY 8 HOURS NEEDED, Starting on Fri04/01/23 at 1109, Until Khloe 04/03/23 at 2133, Post-Op, nausea & vomiting oxyCODONE (immediate release) (ROXICODONE) tablet 5-10 mg 5-10 mg, oral, EVERY 4 HOURS NEEDED, Starting on Fri04/01/23 at 1109, Until Khloe 04/03/23 at 2133, Post-Op, Pain, when taking PO Given 04/03/2023 2: 30 PM OPAL POLISHER 5 mg Given 04/03/2023 10:23 AM OPAL POLISHER 10 mg Given 04/03/2023 6:44 AM OPAL POLISHER 10 mg potassium chloride 20 mEq in D5W-NS IV infusion 1000 mL at 50 mL/hr, Intravenous, CONTINUOUS, Starting on Fri04/01/23 at 1115, Until Khloe 04/03/23 at 2133, Post-Op New Bag 04/01/2023 8:22 PM OPAL POLISHER 50 mL/hr prochlorperazine (COMPAZINE) injection 10 mg 10 mg, Intravenous, EVERY 6 HOURS NEEDED, Starting on Fri04/01/23 at 1109, Until Khloe 04/03/23 at 2133, Post-Op, nausea & vomiting, If not relieved by ondansetron prochlorperazine (COMPAZINE) rectal suppository 25 mg 25 mg, Rectal, EVERY 12 HOURS NEEDED, Starting on Fri04/01/23 at 1109, Until Khloe 04/03/23 at 2133, Post-Op, nausea & vomiting, if [...] 1109, Until Khloe 04/03/23 at 2133, Spasticity Given 04/03/2023 10:23 AM OPAL POLISHER 4 mg Given 04/02/2023 4:45 PM OPAL POLISHER 4 mg Given 04/02/2023 8:07 AM OPAL POLISHER 4 mg documented in this encounter Active and Recently Administered Medications Times are shown in OPAL POLISHER. Scheduled Medication Order 04/01/2023 04/02/2023 04/03/2023 acetaminophen (TYLENOL) rectal suppository 650 mg(Linked Group 1) 650 mg, Rectal, THREE TIMES A DAY, First dose on Fri04/01/23 at 1400, Until Discontinued, Post-Op 1400 (See Alternative - Provider: Florian Franz RN)2127 (See Alternative - Provider: Kunal Morrow RN) 08 (See Alternative - Provider: Seymour Marvin RN)1321 (See Alternative - Provider: Seymour Marvin RN)2215 (See Alternative - Provider: Tamy Sosa RN) [...] Marvin RN)132 (Given - Provider: Seymour Marvin RN)2215 (Given - Provider: Tamy Sosa RN) 0812 (Given - Provider: Seymour Marvin RN)1315 (Given - Provider: Seymour Marvin RN) amLODIPine (NORVASC) tablet 10 mg 10 mg, oral, DAILY, First dose on Fri04/02/23 at 0800, Until Discontinued 08 (Given - Provider: Seymour Marvin RN) 0811 (Given - Provider: Seymour Marvin RN) atenolol (TENORMIN) tablet 25 mg 25 mg, oral, DAILY, First dose on Fri04/02/23 at 0800, Until Discontinued 08 (Given - Provider: Seymour Marvin RN) 0811 [...] injection 10 mg (COMPLETED) 10 mg, Intravenous, COMPLIANCE INVESTIGATOR TO OR, 1 dose, Starting on Fri04/01/23 at 0553, Until Discontinued, Intra-Op 0835 (Given - Provider: Monika Ireland APRN, BACK PAD INSPECTOR) docusate sodium (COLACE) capsule 200 mg 200 [...] 1999.)1956 (Given - Provider: Tamy Sosa RN) DULoxetine (CYMBALTA) delayed release capsule 60 mg 60 mg, oral, DAILY, First dose on Fri04/01/23 at 2030, Until Discontinued 2010 (Given - Provider: Kunal Morrow RN) 0808 (Not Given - Provider: Seymour Marvin RN - Reason: Clinically appropriate (comment) - Comment: Wants to take them @ 1999.)1956 (Given - Provider: Tamy Soas RN) famotidine (PEPCID) tablet 20 mg 20 mg, oral, DAILY, First dose on Fri04/01/23 at 2030, Until Discontinued 2010 (Given - Provider: Kunal Morrow RN) 0808 (Given - Provider: Seymour Marvin RN) 0811 (Given - Provider: Seymour Marvin RN) gabapentin (NEURONTIN) capsule 600 mg (COMPLETED) 600 mg, oral, ONCE, 1 dose, On Fri04/01/23 at 0600, Pre-Op 0643 (Given - Provider: Celeste Robbins RN) oxyCODONE (oxyCONTIN) extended release tablet 12 HR 10 mg (COMPLETED) 10 mg, oral, ONCE, 1 dose, On Fri04/01/23 at 0600, Pre-Op 0643 (Given - Provider: Celeste Robbins RN) sodium chloride 0.9 % IV BOLUS 500 mL (COMPLETED) 500 mL, Intravenous, ONCE, 1 dose, On Fri04/02/23 at 2015, Administer over 61 Minutes 2036 (New Bag - Provider: Tamy Sosa RN)2137 (Stopped - Provider: Daisha Kam RN)2138 (Stopped - Provider: Daisha Kam RN) vancomycin [...] Pre-Op 0645 (New Bag - Provider: Celeste Robbins RN) lactated Ringers (LR) IV infusion (CANCELED) at 100 mL/hr, Intravenous, CONTINUOUS, Starting on Fri04/01/23 at 1115, Until Fri04/01/23 at 1642, Phase 1 1115 (Restarted - Provider: Florian Franz ANGELES) phenylephrine (TREVER-SYNEPHRINE) 32 mg in sodium chloride 0.9 % 100 mL IV infusion (conc: 0.32 mg/mL) for OR (CANCELED) 0-200 mcg/min (0-37.5 mL/hr), Intravenous, TITRATE, Starting on Fri04/01/23 at 0745, Until Tu04/01/23 at 1642, Titrate by 10 mcg/min if MAP is 60-65 and by 20 mcg/min if MAP is less than 60. Notify provider for rate greater than 180 mcg/min 0923 (New Bag - Provider: Monika Ireland APRN, BACK PAD INSPECTOR)0932 (Rate Change - Provider: Monika Ireland APRN, BACK PAD INSPECTOR)1014 (Rate Change - Provider: Monika Ireland APRN, BACK PAD INSPECTOR)1106 (Rate Change - Provider: Monika Ireland APRN, BACK PAD INSPECTOR)1108 (Stopped - Provider: Monika Ireland APRN, BACK PAD INSPECTOR) potassium chloride 20 mEq in D5W-NS IV infusion 1000 mL at 50 mL/hr, Intravenous, CONTINUOUS, Starting on Fri04/01/23 at 1115, Until Khloe 04/03/23 at 2133, Post-Op 2021 (New Bag - Provider: Kunal Morrow RN) 0812 (Stopped - Provider: Daisha Kam RN) PRN Medication Order 04/01/2023 04/02/2023 04/03/2023 [...] Franz RN) 0029 (Given - Provider: Kunal Morrow RN) HYDROmorphone (DILAUDID) syringe 0.2-0.4 mg (CANCELED) 0.2-0.4 mg, Intravenous, EVERY 4 HOURS NEEDED, Starting on Fri04/02/23 at 0158, Until Fri04/02/23 at 1142, Post-Op, Pain, when NOT taking PO, Pain, if oral opioid not effective or tolerated 0339 (Given - Provider: Kunal Morrow, ANGELES) HYDROmorphone (DILAUDID) syringe 0.5 mg 0.5 mg, Intravenous, EVERY 4 HOURS NEEDED, Starting on Fri04/02/23 at 1141, Until Khloe 04/03/23 at 2133, Post-Op, Pain, when NOT taking PO, Pain, if oral opioid not effective or tolerated 1321 (Given - Provider: Seymour Marvin RN)1737 (Given - Provider: Seymour aMrvin RN)2304 (Given - Provider: Tamy Sosa RN) [...] 1109, Until Khloe 24 at 2133, Post-Op, to enhance pain control [...] 04/03/23 at 2133, Post-Op, nausea & vomiting, if [...] at 2133, Spasticity 0807 (Given - Provider: Seymour Marvin RN)1645 (Given - Provider: Seymour Marvin [...] 1107, Until 04/01/23 at 1642, Phase 1/2, Pain, when taking [...] Prevention 04/01/23 04/01/2023 04/01/2023 04/01/2023 11:11 AM OPAL POLISHER documented as of this encounter Care Teams Contract Writer Relationship Specialty [place] [id number] [address] [place] [id number] PCP - General Internal Medicine 03/12/23 04/01/23 documented as of this encounter
--- OUTSIDE RECORDS SUMMARY | 2023-04-05 09:21 | XMS_ITS | Encounter Summary ---
Author Name Unknown Organization [facility] Address [address] [facility] [place] [address] Care Team Providers Care Cmo & President Name Role Phone Carolynn Alvarado Primary Care Provider [phone] Ismael Ordoñez PA-C Unavailable [phone] Encounter Details Date Type Department Care Team (Latest Contact Info) Description 08/02/2022 Travel Social History Tobacco Use Types Packs/Day [...] on filedocumented in this encounter Care Teams Cmo & President Relationship Specialty Start Date End Date Carolynn Alvarado PCP - General 05/30/16 Ismael Ordoñez PA-C [address] [place] [id number] Assigned Neuroscience Provider 12/03/20 documented as of this encounter
--- OUTSIDE RECORDS SUMMARY | 2023-04-05 09:21 | XMS_ITS | Encounter Summary ---
Author Name Unknown Organization [facility] Address [address] [place] [address] Care Team Providers Care Motor Vehicles Supervisor Name Role Phone Carolynn Alvarado Primary Care Provider Ismael Ordoñez PA-C Unavailable Reason for Referral * Clinically Administered Medications (Routine) - Closed Specialty Diagnoses / Procedures Referred By Contac t Referred To Contact Pain & Palliative Care Diagnoses UNKNOWN Procedures [place] Raeann [place]ña [place] [address] [facility] [address] [place] [address] [facility] [address] [facility] [address] [place] [address] Referral ID Status Reason Start Date Expiration Date Visits Re quested Visits Authorized Closed 08/09/2022 08/09/2023 1 1 Reason for Visit * Reason Comments Pain * Consultation (Routine: Next available opening) - Pending Review Specialty Diagnoses / Procedures Referred By Contac t Referred To Contact Pain Medicine Diagnoses S/P lumbar microdiscectomy Lumbar radiculopathy Ismael Ordoñez PA-C [address] [place] [address] Referral ID Status Reason Start Date Expiration Date V isits Requested Visits Authorized Pending Review 08/02/2022 08/02/2023 1 1 Encounter Details Date Type Department Care Team (Latest Contact Info) Description 08/09/2022 10:15 AM CDT Radiology Injection Office Visit [facility] [place] [id number] [place] [address] [address] [place], [place] [id number] Ismael Ordoñez PA-C [address] [facility] [address] [place], [place] [id number] Raeann Peña [place] [address] [facility] [address] [place] [address] Lumbar radiculopathy (Primary Dx) Social History Tobacco Use Types Packs/Day Years [...] suspected to have Coronavirus/COVID-19? No / Unsure 08/09/2022 9:54 AM CDT documented as of this encounter Last Filed Vital Signs Vital Sign Reading Time Taken Comments Blood Pressure 102/64 08/09/2022 10:51 AM CDT Pulse 70 08/09/2022 10:51 AM CDT Temperature - - Respiratory Rate - - Oxygen Saturation 98% 08/09/2022 10:51 AM CDT Inhaled Oxygen Concentration - - Weight - - Height - - Body Mass Index - - documented in this encounter Patient Instructions * Patient Instructions* Sofia Cordova RN - 08/09/2022 10:15 AM CDT [facility] Procedure Discharge Instructions Today you saw: Dr. Raeann Peña Your procedure: Epidural steroid injection Medications used: Lidocaine (anesthetic) Dexamethasone (steroid) Omnipaque (contrast) Be cautious when walking as numbness and/or weakness in the legs may occur up to 6-8 hours after the procedure due to effect of the local anesthetic Do not drive for 6 hours. The effect of the local anesthetic could slow your reflexes. Avoid strenuous activity for the first 24 hours. You may resume your regular activities after that. You may shower, however avoid swimming, tub baths or hot tubs for 24 hours following your procedure You may have a mild to moderate increase in pain for several days following the injection. You may use ice packs for 10-15 minutes, 3 to 4 times a day at the injection site for comfort Do not use heat to painful areas for 6 to 8 hours. This will give the local anesthetic time to wearoff and prevent you from accidentally burning your skin. Unless you have been directed to avoid the use of anti-inflammatory medications (NSAIDS-ibuprofen, Aleve, Motrin), you may use these medications or Tylenol for pain control if needed. With diabetes, check your blood sugar more frequently than usual as your blood sugar may be higher than normal for 10-14 days following a steroid injection. Contact your doctor who manages your diabetes if your blood sugar is higher than usual Possible side effects of steroids that you may experience include flushing, elevated blood pressure, increased appetite, mild headaches and restlessness. All of these symptoms will get better with time. It may take up to 14 days for the steroid medication to start working although you may feel the effect as early as a few days after the procedure. Follow up with your referring provider in 2-3 weeks-Neurosurgery If you experience any of the following, call the pain center line during work hours at [phone] on-call physician after hours at [phone]: -Fever over 100 degree F -Swelling, bleeding, redness, drainage, warmth at the injection site -Progressive weakness or numbness in your legs -Loss of bowel or bladder function -Unusual headache that is not relieved by Tylenol or your regular headache medication -Unusual new onset of pain that is not improving documented in this encounter Progress Notes * Raeann Peña MD - 08/09/2022 10:15 AM CDT [facility] - Procedure Note Date of Service: 08/09/2022 Procedure performed: Right L1-2 transforaminal epidural steroid injection with fluoroscopic guidance Diagnosis: Lumbar spondylosis; Lumbar radiculitis/radiculopathy Survey Technician: Raeann Peña MD Anesthesia: None Indications: Michelle Franz is a 76 year old female who is seen at the request of Inessa Go lumbar transforaminal epidural steroid injection. The patient describes right sided back and hip pain. The patient has been exhibiting symptoms consistent with lumbar intraspinal inflammation andradiculopathy. Symptoms have been persistent, disabling, and intermittently severe. The patient reports minimal improvement with conservative treatment. Lumbar MRI was done on 07/03/2022 which showed IMPRESSION: ?? 1. Interval postoperative changes of right-sided microdiscectomy at L1-L2 with removal of the free disc fragment in the right subarticular zone resulting in improved patency. 2. Additional degenerative changes as detailed above, otherwise stable compared to prior. Allergies: Allergies Allergen Reactions ??? Lisinopril Headache Vitals: BP 102/64 Pulse 70 SpO2 98% Review of Systems: The patient denies recent fever, chills, illness, use of antibiotics or anticoagulants. All other 10-point review of systems negative. Procedure: The procedure and risks were explained, and informed written consent was obtained from the patient. Risks include but are not limited to: infection, bleeding, increased pain, and damage tosoft tissue, nerve, muscle, and vasculature structures. After getting informed consent, patient wasbrought into the procedure suite and was placed in a prone position on the procedure table. A Pausefor the Cause was performed. Patient was prepped and draped in sterile fashion. After identifying the right L1-2 neuroforamen, the C-arm was rotated to a right lateral oblique angle. A total of 3 mL of Lidocaine 1% was used to anesthetize the skin and the needle track at a skin entry site coaxial with the fluoroscopy beam, and overriding the superior aspect of the neuroforamen. A 22 gauge 5 inch spinal needle was advanced under intermittent fluoroscopy until it entered the foramen superiorly. The position was then inspected from anteroposterior and lateral views, and the needle adjusted appropriately. After negative aspiration, a total of 0.5 mL of Omnipaque-300 was injected using static and continuous fluoroscopy confirming appropriate position, with spread along the nerve root sheath and into the epidural space, with no intravascular or intrathecal uptake. 2 mL of 1% lidocaine with 10 mg of dexamethasone was injected. The needle was removed. Hemostasis was achieved, the area was cleaned, and bandaids were placed when appropriate. Images were saved to PACS. The patient tolerated the procedure well, and was taken to the recovery room, and there was no evidence of procedural complications. No new sensory or motor deficits were noted following the procedure. The patient was stable and able to ambulate on discharge home. Post-procedure instructions were provided. Pre-procedure pain score: 8/10 in the back, 5/10 in the leg Post-procedure pain score: 3/10 in the back, 3/10 in the leg Assessment/Plan: Michelle Franz is a 76 year old female s/p right L1-2 transforaminal epidural steroid injection today for lumbar spondylosis, radiculitis/radiculopathy. 1. Following today's procedure, the patient was advised to contact the [facility] for any of the following: Fever, chills, or night sweats New onset of pain, numbness, or weakness Any questions/concerns regarding the procedure If unable to contact the Pain Center, the patient was instructed to go to a local Emergency Room for any complications. 2. The patient should follow-up with the referring provider Raeann Peña MD [facility] [place] documented in this encounter Nursing Notes * Nissa Su, RECYCLING OPERATOR - 08/09/2022 10:15 AM CDT Pre-procedure Intake If YES to any questions or NO to having a dairy truck driver Please complete laminated checklist and leave on the computer keyboard for Provider, verbally inform provider if able. For SCS Trial, RFA's or any sedation procedure: NA ?? If yes, for how long? Are you taking any any blood thinners such as Coumadin, Warfarin, Jantoven, Pradaxa Xarelto, Eliquis, Edoxaban, Enoxaparin, Lovenox, Heparin, Arixtra, Fondaparinux, or Fragmin? OR Antiplatelet medication such as Plavix, Brilinta, or Effient? NO ?? If yes, when did you take your last dose? Do you take aspirin? NO ?? If cervical procedure, have you held aspirin for 6 days? NA Do you have any allergies to contrast dye, iodine, steroid and/or numbing medications? NO Are you currently taking antibiotics or have an active infection? NO Have you had a fever/elevated temperature within the past week? NO Are you currently taking oral steroids? 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 NA Have you received any vaccines in the past 2 weeks? NO Notify provider and RNs if systolic BP >170, diastolic BP >100, P >100 or O2 sats < 90% * Sofia Cordova RN - 08/09/2022 10:15 AM CDT Discharge Information IV Discontiued Time: NA Amount of Fluid Infused: NA Discharge Criteria = When patient returns to baseline or as per MD order Consciousness: Pt is fully awake Circulation: BP +/- 20% of pre-procedure level Respiration: Patient is able to breathe deeply O2 Sat: Patient is able to maintain O2 Sat >92% on room air Activity: Moves 4 extremities on command Ambulation: Patient is able to stand and walk or stand and pivot into wheelchair Dressing: Clean/dry or No Dressing Notes: Discharge instructions and AVS given to patient Patient meets criteria for discharge? YES Admitted to PCU? No Responsible adult present to accompany patient home? Yes Signature/Title: Sofia Cordova RN RN Mower Operator [facility] documented in this encounter Plan of Treatment Not on file documented as of this encounter Procedures Procedure Name Priority Date/Time Associated Diagnosis Comments PAIN TRANSFORAMINAL TOM INJ SACRAL ONE LVL RT Routine 08/09/2022 10:44 AM CDT Lumbar radiculopathy documented in this encounter Results * PAIN TRANSFORAMINAL TOM INJ SACRAL ONE LVL RT (08/09/2022 10:44 AM CDT) Anatomical Region Laterality Modality PAIN/SPINE Radio Fluoroscop y Narrative 08/09/2022 11:22 AM CDT Table formatting from the original result was not included. [facility] - Procedure Note Date of Service: 08/09/2022 Procedure performed: Right L1-2 ??transforaminal epidural steroid injection with fluoroscopic guidance Diagnosis: Lumbar spondylosis; Lumbar radiculitis/radiculopathy Survey Technician: Raeann Peña MD Anesthesia: None Indications: Michelle Franz is a 76 year old female who is seen at the request of Ismael Ordoñez PA-C for lumbar transforaminal epidural steroid injection. The patient describes right sided back and hip pain. The patient has been exhibiting symptoms consistent with lumbar intraspinal inflammation and radiculopathy. Symptoms have been persistent, disabling, and intermittently severe. The patient reports minimal improvement with conservative treatment. Lumbar MRI was done on 07/03/2022 ??which showed IMPRESSION: ?? 1. Interval postoperative changes of right-sided microdiscectomy at L1-L2 with removal of the free disc fragment in the right subarticular zone resulting in improved patency. 2. Additional degenerative changes as detailed above, otherwise stable compared to prior. ?? Allergies: Allergies Allergen Reactions ? ? Lisinopril ?Headache Vitals: BP 102/64 ?? Pulse 70 ?? SpO2 98% Review of Systems: The patient denies recent fever, chills, illness, use of antibiotics or anticoagulants. All other 10-point review of systems negative. Procedure: The procedure and risks were explained, and informed written consent was obtained from the patient. Risks include but are not limited to: infection, bleeding, increased pain, and damage to soft tissue, nerve, muscle, and vasculature structures. After getting informed consent, patient was brought into the procedure suite and was placed in a prone position on the procedure table. A Pause for the Cause was performed. Patient was prepped and draped in sterile fashion. After identifying the right L1-2 neuroforamen, the C-arm was rotated to a right lateral oblique angle. ??A total of 3 mL of Lidocaine 1% was used to anesthetize the skin and the needle track at a skin entry site coaxial with the fluoroscopy beam, and overriding the superior aspect of the neuroforamen. ??A 22 gauge 5 inch spinal needle was advanced under intermittent fluoroscopy until it entered the foramen superiorly. The position was then inspected from anteroposterior and lateral views, and the needle adjusted appropriately. ??After negative aspiration, a total of 0.5 mL of Omnipaque-300 was injected using static and continuous fluoroscopy confirming appropriate position, with spread along the nerve root sheath and into the epidural space, with no intravascular or intrathecal uptake. 2 mL of 1% lidocaine with 10 mg of dexamethasone was injected. ??The needle was removed. Hemostasis was achieved, the area was cleaned, and bandaids were placed when appropriate. Images were saved to PACS. The patient tolerated the procedure well, and was taken to the recovery room, and there was no evidence of procedural complications. No new sensory or motor deficits were noted following the procedure. The patient was stable and able to ambulate on discharge home. Post-procedure instructions were provided. Pre-procedure pain score: 8/10 in the back, 5/10 in the leg Post-procedure pain score: 3/10 in the back, 3/10 in the leg Assessment/Plan: Michelle Franz is a 76 year old female s/p right L1-2 transforaminal epidural steroid injection today for lumbar spondylosis, radiculitis/radiculopathy. 1. Following today's procedure, the patient was advised to contact the [facility] for any of the following: Fever, chills, or night sweats New onset of pain, numbness, or weakness Any questions/concerns regarding the procedure If unable to contact the Pain Center, the patient was instructed to go to a local Emergency Room for any complications. 2. The patient should follow-up with the referring provider Raeann Peña MD [facility] Raeann Peña MD [facility] ORDER[facility] documented in this encounter Visit Diagnoses Diagnosis Lumbar radiculopathy- Primary Thoracic or lumbosacral neuritis or radiculitis, unspecified documented in this encounter Administered Medications Inactive Administered Medications - up to 3 most recent administrations Medication Order MAR Action Action Date Dose Rate Site dexamethasone (DECADRON) injection 10 mg 10 mg, INTRA-ARTICULAR, ONCE, On Fri08/09/22 at 1130, For 1 dose, Route: epidural $Given 08/09/2022 11:24 AM CDT 10 mg iohexol (OMNIPAQUE) 300 mg/mL injection 10 mL 10 mL, EPIDURAL, ONCE, On Fri08/09/22 at 1030, For 1 dose $Given by Other 08/09/2022 10:45 AM CDT 0.5 mLs documented in this encounter Care Teams Motor Vehicles Supervisor Relationship Specialty Start Date End Date Carolynn Alvarado PCP - General 05/30/16 Ismael Ordoñez PA-C [address] [place] [id number] Assigned Neuroscience Provider 12/03/20 documented as of this encounter
--- OUTSIDE RECORDS SUMMARY | 2023-04-05 09:21 | XMS_ITS | Encounter Summary ---
Author Name Unknown Organization [facility] Address [address] [facility] [place] [address] Care Team Providers Care Slat Basket Maker Machine Name Role Phone Carolynn Alvarado Primary Care Provider [phone] Ismael Ordoñez PA-C Unavailable Encounter Details Date Type Department Care Team (Late st Contact Info) Description 03/03/2021 Documentation Only INTERFACED REPORT Unknown, Provider Social History Tobacco Use Types Packs/Day Years [...] have Coronavirus / COVID-19? No / Unsure 03/03/2021 9:08 AM JIG MAKER documented as of this encounter Plan of Treatment Not on file documented as of this encounter Visit Diagnoses Not on filedocumented in this encounter Care Teams Slat Basket Maker Machine Relationship Specialty Start Date End Date Carolynn Alvarado PCP - General 05/30/16 Ismael Ordoñez PA-C [address] [place] [id number] Assigned Neuroscience Provider 12/03/20 documented as of this encounter
--- OUTSIDE RECORDS SUMMARY | 2023-04-05 09:21 | XMS_ITS | Encounter Summary ---
Author Name Unknown Organization [place] Address [address] [facility] [place] [address] Care Team Providers Care Source Inspector Name Role Phone Carolynn Alvarado Primary Care Provider [phone] Ismael Ordoñez PA-C Unavailable [phone] Encounter Details Date Type Department Care Team (Latest Contact Info) Description 08/20/2022 Travel Social History Tobacco Use Types Packs/Day [...] on filedocumented in this encounter Care Teams Source Inspector Relationship Specialty Start Date End Date Carolynn Alvarado PCP - General 05/30/16 Ismael Ordoñez PA-C [address] [place] [id number] Assigned Neuroscience Provider 12/03/20 documented as of this encounter
--- OUTSIDE RECORDS SUMMARY | 2023-04-05 09:21 | XMS_ITS | Encounter Summary ---
Author Name Unknown Organization [place] Address [address] [facility] [place] [address] Care Team Providers Care Construction Stonemason Name Role Phone Carolynn Alvarado Primary Care Provider [phone] Ismael Ordoñez PA-C Unavailable [phone] Encounter Details Date Type Department Care Team (Latest Contact Info) Description 08/09/2022 Travel Social History Tobacco Use Types Packs/Day [...] on filedocumented in this encounter Care Teams Construction Stonemason Relationship Specialty Start Date End Date Carolynn Alvarado PCP - General 05/30/16 Ismael Ordoñez PA-C [address] [place] [id number] Assigned Neuroscience Provider 12/03/20 documented as of this encounter
--- OUTSIDE RECORDS SUMMARY | 2023-04-05 09:21 | XMS_ITS | Clinical Summary ---
Author Name Unknown Organization [place] Address [address] [facility] [place] [place] [address] Care Team Providers Care Furnace Combustion Analyst Name Role Phone Carolynn Alvarado Primary Care Provider [phone] Ismael Ordoñez PA-C Unavailable [phone] Allergies Active Allergy Reactions Criticality Noted Date [...] Overview: Added automatically from request for surgery [id number] Resolved Problems Problem Noted Date Diagnosed Date Resolved Date Displacement of lumbar inter vertebral disc without myelopathy 07/08/2016 08/23/2016 Surgical aftercare, musculoskeletal system 07/08/2016 08/23/2016 Family History Medical History Relation Comments Hypertension Brother Hypertension Father Hypertension Mother Relation Status Comments Brother Father Mother Social History Tobacco Use Types Packs/Day Years [...] 37 ??C (98.6 ??F) 03/03/2021 9:14 AM DRY HEAT CABINET ATTENDANT Respiratory Rate 18 03/03/2021 9:14 AM DRY HEAT CABINET ATTENDANT Oxygen Saturation 99% 08/20/2022 10:38 AM CDT Inhaled Oxygen Concentration - - Weight 60 kg (132 lb 4.8 oz) 10/02/2021 10:20 AM CDT Height 165.1 cm (5' 5) 04/04/2021 10:30 AM DRY HEAT CABINET ATTENDANT Body Mass Index 22.02 04/04/2021 10:30 AM DRY HEAT CABINET ATTENDANT Plan of Treatment Health Maintenance Due Date Last Done Comments ADVANCE CARE PLANNING 1945 ANNUAL REVIEW OF HM ORDERS 1947 CT COLONOGRAPHY 1945 FLEX SIG 1945 sDNA (Cologuard) 1945 COLONOSCOPY 12/29/1957 HEPATITIS C SCREENING 12/29/1965 LIPID 12/29/1992 ZOSTER IMMUNIZATION (1 of 2) 12/29/1997 RSV VACCINE ( & 60+) (1 - 1-dose 60+ series) 2007 FALL RISK ASSESSMENT 12/29/2012 COVID-19 Vaccine ( season) 2022 12/04/2021, 03/07/2021, 05/19/2020, Additional history exists INFLUENZA VACCINE (#1) 2022 , 12/23/2020, 12/24/2019, Additional history exists PHQ-2 (once per calendar year) 2023 08/02/2022, 10/02/2021, 09/02/2016, Additional history exists MEDICARE ANNUAL WELLNESS VISIT 06/14/2023 06/13/2022, 04/26/2021, 04/20/2020, Additional history exists COLORECTAL CANCER SCREENING 07/09/2023 FIT 07/09/2023 07/08/2022, 06/09/2020 MAMMO SCREENING 10/02/2023 10/01/2021, 09/14, 03/13/2020, Additional history exists DTAP/TDAP/TD IMMUNIZATION (4 - Td or Tdap) 03/24/2029 03/24/2019, 03/24/2019, 11/26/2007, Additional history exists DEXA 11/14/2036 11/14/2021, 05/19/2019 Pneumococcal Vaccine: 65+ Years Completed 01/28/2017, 10/27/2014 HPV IMMUNIZATION Aged Out No longer e ligible based on patient's age to complete this topic IPV IMMUNIZATION Aged Out No longer e ligible based on patient's age to complete this topic MENINGITIS IMMUNIZATION Aged Out No l onger eligible based on patient's age to complete this topic RSV MONOCLONAL ANTIBODY Aged Out No l onger eligible based on patient's age to complete this topic Medical Devices Implanted Type Area Cotton Ginner Helper Device Identifier Shelf Expiration Date Model / Serial / Lot Graft Bone Crush Canc 15ml [id number] - [id number] Implanted:Qty : 1 on 10/11/2020 by Morgan Avelar MD at [facility] Bone/Ti ssue/Bi ologic N/A: Spine Cervical MUSCULOSKELETAL HELTON 05/26/2023 [id number] / [id number] / 30mm Jarred Implanted:Qty : 2 on 10/11/2020 by Morgan Avelar MD at [facility] N/A: Spine Cervical [employer] [id number] / / [id number] Advance Directives For more information, please contact: [phone] Latest Code Status on File Code Status [...] 2:45 PM 10/11/2020 8:24 AM Care Teams Furnace Combustion Analyst Relationship Specialty Start Date End Date Carolynn Alvarado PCP - General 05/30/16 Ismael Ordoñez PA-C [address] [place] [address] Assigned Neuroscience Provider 12/03/20
--- OUTSIDE RECORDS SUMMARY | 2023-04-05 09:21 | XMS_ITS | Encounter Summary ---
Author Name Unknown Organization [place] Address [address] [facility] [place] [address] Care Team Providers Care Knitting Machine Fixer Name Role Phone Carolynn Alvarado Primary Care Provider [phone] Ismael Ordoñez PA-C Unavailable Reason for Visit * Reason Onset Date Comments Appointment 10/22/2022 Encounter Details Date Type Department Care Team (Late st Contact Info) Description 10/22/2022 Telephone [facility] Neurosurgery Clinic [address] [address] [place] [address] [place] [address] Appointment Social History Tobacco Use Types Packs/Day Years Used Date Smoking Tobacco: Never Smokeless Tobacco: Never Alcohol Use Standard Drinks/Week Comments No 0 (1 standard drink = 0.6 oz pur e alcohol) PHQ-2 Answer Date Recorded PHQ-2 Score 2 08/02/2022 Sex and Gender Information Value Date Recorded Sex Assigned at Not on file Gender Identity Not on file Sexual Orientation Not on file documented as of this encounter Miscellaneous Notes * Telephone Encounter - Katelynn Galvin - 10/22/2022 3:26 PM CDT Patient has been waiting to schedule appointment with Dr. Avelar. Dr. Avelar's schedule will not be available unit at least January. Patient was made aware of the new scheduling delay, and has decided [place] documented in [place] encounter Plan of Treatment Not on file documented as of this encounter Visit Diagnoses Not on filedocumented in this encounter Care Teams Knitting Machine Fixer Relationship Specialty Start Date End Date Carolynn Alvarado PCP - General 05/30/16 Ismael Ordoñez PA-C [address] [place] [address] Assigned Neuroscience Provider 12/03/20 documented as of this encounter
--- OUTSIDE RECORDS SUMMARY | 2023-04-05 09:21 | XMS_ITS | Encounter Summary ---
Author Name Unknown Organization [facility] Address [address] [place] [address] [place] [address] Care Team Providers Care Reporting Coordinator Name Role Phone Carolynn Alvarado MD Primary Care Provider [phone] Carolynn Alvarado MD Primary Care Provider [phone] [facility] Unavailable Encounter Details Date Type Department Care Team (Late st Contact Info) Description 03/28/2023 Prep For Procedure NMR PROVIDER [address] [place], [place] [address] [address] Nj Thorne, PAYogiC [address] [id number] Social History Tobacco Use Types Packs/Day Years Used Date Smoking Tobacco: Never Smokeless Tobacco: Never Alcohol Use Standard Drinks/Week Comments Never 0 (1 standard drink = 0.6 oz pur e alcohol) [facility] Utilities Answer Date Recorded In the past 12 months has [facility] [employer], gas, oil, or water [employer] threatened to shut off services in your [...] place to sleep or slept in a senior care (including now)? No 04/01/2023 Sex and Gender Information Value Date Recorded Sex Assigned at Female 03/11/2023 11:10 AM COFOUNDER Gender Identity Female 03/11/2023 11:10 AM COFOUNDER Sexual Orientation Straight 03/11/2023 11 :10 AM COFOUNDER documented as of this encounter Plan of Treatment Not on file documented as of this encounter Visit Diagnoses Not on filedocumented in this encounter Additional Health Concerns Infection Onset Date Last Indicated Resolved Time MRSA Comment:CLEARED by Infection Prevention 04/01/23 04/01/2023 04/01/2023 04/01/2023 11:11 AM COFOUNDER documented as of this encounter Care Teams Reporting Coordinator Relationship Specialty [place] [address] [place] [address] PCP - General Internal Medicine 03/12/23 04/01/23 [place] [address] [place] [address] PCP - General Internal Medicine 04/02/23 Clinic, [facility] [address] [id number] PCP - Primary Care Clinic 04/02/23 documented as of this encounter
--- OUTSIDE RECORDS SUMMARY | 2023-04-05 09:21 | XMS_ITS | Encounter Summary ---
Author Name Unknown Organization [place] Address [address] [facility] [place] [address] Care Team Providers Care Shine Worker Name Role Phone Carolynn Alvarado Primary Care Provider [phone] Ismael Ordoñez PA-C Unavailable [phone] Reason for Visit * Reason Onset Date Comments Procedure 08/05/2022 Right L1-2 TFESI Encounter Details Date Type Department Care Team (Late st Contact Info) Description 08/05/2022 Telephone [facility] [place] [address] [facility] [address] [place] [address] Pain Management Program, [facility] Procedure (Right L1-2 TFESI) Social History Tobacco Use Types Packs/Day Years [...] AM CDT documented as of this encounter Miscellaneous Notes * Telephone Encounter - Elaine Jensen - 08/05/2022 3:09 PM CDT Screening Questions for Radiology Injections: Injection to be done at which interventional clinic site? [facility] Procedure ordered by Ismael Ordoñez PA-C Procedure ordered? Right L1-2 TFESI ??? Transforaminal Cervical TOM - Send to [facility] - No [facility] Site providers perform this procedure What insurance would patient like us to bill for this procedure? MEDICARE and MEDICA ?? IF SCHEDULING IN [place] OR SPINE PLEASE SCHEDULE AT LEAST 7-10 BUSINESS DAYS OUT SO A PACAN BE OBTAINED ?? Worker's comp or MVA (motor vehicle accident) -Any injection DO NOT SCHEDULE and route to Kevin Estrada. ?? [employer] insurance - For SI joint injections, DO NOT SCHEDULE and route to Elsa Zuniga. ?? ALL BCBS, Humana and [employer] CIGNA - DO NOT SCHEDULE and route to Elsa Zuniga ?? MEDICA- facet joint injections, route to Elsa Zuniga Is patient scheduled at [facility]? If YES, route every encounter to [facility] CARE NAVIGATION POOL [[phone]] Is an diplomatic interpreter needed? No Patient has a pile driver operator helper home? (Review Grid) YES: Informed Any chance of ? NO If YES, do NOT schedule and route to pool manager - Dr. Miller route to Rachna Mcbride and PM&R Nurse [[id number]] Is patient actively being treated for cancer or immunocompromised? No If YES, do NOT schedule and route to pool manager/ Dr. Miller's Team Does the patient have a bleeding or clotting disorder? No ?? If YES, okay to schedule AND route to RN nurse celsa/ Dr. Miller's Team ?? (For any patients with platelet count <100, RN must forward to provider) Is patient taking any Blood Thinners OR Antiplatelet medication? No If hold needed, do NOT schedule, route to pool manager/ Dr. Miller's Team ??? Examples: o Blood Thinners: (Coumadin, Warfarin, Jantoven, Pradaxa, Xarelto, Eliquis, Edoxaban, Enoxaparin, Lovenox, Heparin, Arixtra, Fondaparinux or Fragmin) o Antiplatelet Medications: (Plavix, Brilinta or Effient) Is patient taking any aspirin products (includes Excedrin and Fiorinal)? No ?? If more than 325mg/day, OK to schedule; Instruct Pt to decrease to less than 325 mg for 7 days AND route to ANGELES swift/ Dr. Miller's Team ?? For CERVICAL procedures, hold all aspirin products for 6 days. ?? Tell Pt that if aspirin product is not held for 6 days, the procedure WILL BE cancelled. Any allergies to contrast dye, iodine, shellfish, or numbing and steroid medications? No ??? If YES, schedule and add allergy information to appointment notes AND route to the ANGELES swift/ s Team ??? If TOM and Contrast Dye / Iodine Allergy? DO NOT SCHEDULE, route to ANGEL[facility]/ Dr. Geigers Team ??? Allergies: Lisinopril Does patient have an active infection or treated for one within the past week? No ??? Is patient currently taking any antibiotics or steroid medications? No ?? For patients on chronic, preventative, or prophylactic antibiotics, procedures may be scheduled. ?? For patients on antibiotics for active or recent infection, schedule 4 days after completed. ?? For patients on steroid medications, schedule 4 days after completed. Has the patient had a flu shot or any other vaccinations within the past 7 days? No If yes, explain that for the vaccine to work best they need to: ??? wait 1 week before and 1 week after getting any Vaccine ??? wait 1 week before and 2 weeks after getting Covid Vaccine #2 or BOOSTER ??? If patient has concerns about the timing, send to [facility]/ Dr. Miller's Team Does patient have an MRI/CT? YES: 07/03/22 Include Date and Check Procedure Scheduling Grid to see if required. ?? Was the MRI/CT done within the last 3 years? Yes ?? If no route to [facility]/ Dr. Geigers Team ?? If yes, where was the MRI/CT done? [facility] ?? Refer to PACS Transmissions list for approved external locations and route to ANGELES Swift High Priority/ Dr. Miller's Team ?? If MRI was not done at approved external location do NOT schedule and route to ANGEL[facility] swift/ Dr. Arteaga Team ?? If patient has an imaging disc, the injection MAY be scheduled but patient must bring disc to appt or appt will be cancelled. Is patient able to transfer to a procedure table with minimal or no assistance? Yes ??? If no, do NOT schedule and route to [facility]/ Dr. Miller's Team Procedure Specific Instructions: ??? If celiac plexus block, informed patient NPO for 6 hours and that it is okay to take medications with sips of water, especially blood pressure medications Not Applicable ??? If this is for a cervical procedure, informed patient that aspirin needs to be held for 6 days.Not Applicable ??? Sedation, If Sedation is ordered for any procedure, patient must be NPO for 6 hours prior to procedure Not Applicable ??? If IV needed: ?? Do not schedule procedures requiring IV placement in the first appointment of the day or first appointment after lunch. Do NOT schedule at 0745, 0815 or 1245. ?? Instructed patient to arrive 30 minutes early for IV start if required. (Check Procedure Scheduling Grid) Not Applicable Reminders: ??? If you are started on any steroids or antibiotics between now and your appointment, you must contact us because the procedure may need to be cancelled. Yes ??? As a reminder, receiving steroids can decrease your body's ability to fight infection. Would you still like to move forward with scheduling the injection? Yes ??? IV Sedation is not provided for procedures. If oral anti-anxiety medication is needed, the patient should request this from their referring provider. ??? Instruct patient to arrive as directed prior to the scheduled appointment time: If IV needed 30 minutes before appointment time ?? For patients 85 or older we recommend having an adult stay w/ them for the remainder of the day. ?? If the patient is Diabetic, remind them to bring their glucometer. Does the patient have any questions? NO Elaine Jensen [facility] documented in this encounter Plan of Treatment Not on file documented as of this encounter Visit Diagnoses Not on filedocumented in this encounter Care Teams Shine Worker Relationship Specialty Start Date End Date Carolynn Alvarado PCP - General 05/30/16 Ismael Ordoñez PA-C [address] [place] [address] Assigned Neuroscience Provider 12/03/20 documented as of this encounter
--- OUTSIDE RECORDS SUMMARY | 2023-04-05 09:21 | XMS_ITS | Encounter Summary ---
Author Name Unknown Organization [place] Address [address] [facility] [place] [address] Care Team Providers Care Pre Owned Sales Manager Name Role Phone Carolynn Alvarado Primary Care Provider [phone] Morgan Avelar MD Unavailable Ismael Ordoñez PA-C Unavailable [phone] Ismael Ordoñez PA-C Unavailable [phone] Reason for Visit * Reason Onset Date Comments Procedure 04/23/2016 Epidural Steroid (transforaminal approach): Lumbar right L4-5 Encounter Details Date Type Department Care Team ([facility] st Contact Info) Description 04/23/2016 Telephone [facility] [place] [id number] [place] [address] [address] [place] [address] Pain Management Program, [facility] Procedure (Epidural Steroid (transforaminal approach): Lumbar right L4-5) Social History Tobacco Use Types Packs/Day Years Used Date Smoking Tobacco: Never Sex and Gender Information Value Date Recorded Sex Assigned at Not on file Gender Identity Not on file Sexual Orientation Not on file documented as of this encounter Miscellaneous Notes * Telephone Encounter - Rangel Ordoñez - 04/23/2016 3:55 PM CST Pre-screening questions for Radiology Injections: Injection to be done at which interventional clinic site? [facility] Procedure ordered by Dr. Elaine Antonio Procedure ordered? Lumbar Epidural Steroid Injection What insurance would patient like us to bill for this procedure? Medicare and Medica ?? Worker's comp-Any injection DO NOT SCHEDULE and route to Elsa Zuniga. ?? [employer] insurance - If scheduling an SI joint injection DO NOT SCHEDULE and route Carolynn. ?? [employer]- MBB's must be scheduled at LEAST two weeks apart ?? Humana - Any injection besides hip/shoulder/knee joint DO NOT SCHEDULE and route to Elsa Zuniga.She will obtain PA and call pt back to schedule procedure or notify pt of denial. Is an park attendant needed? No Patient has a drive home? (mandatory) YES: Is patient taking any blood thinners (plavix, coumadin, jantoven, warfarin, heparin, pradaxa or dabigatran )? No (If so, do not schedule, contact RN and/or MD) Is patient taking any aspirin products? No (If more than 325mg/day do not schedule; Contact RN/MD. For all non-cervical interventional procedures if patient is taking MORE than 325mg/day, limit aspirin to 81-325mg/day x 1 week. No hold required day of procedure. For CERVICAL procedures, hold all aspirin products for 6 days.) Does the patient have a bleeding or clotting disorder? No (If yes, okay to schedule, but contact RN/MD). For any patients with platelet count <100, must be forwarded to provider Is patient diabetic? No If YES, have them bring their glucometer. Does patient have an active infection or treated for one within the past week? No Is patient currently taking any antibiotics? No For patients on chronic, preventative, or prophylactic antibiotics, procedures can be scheduled. For patients on antibiotics for active or recent infection: Melissa Bolanos [place], [place]-antibiotic course must have been completed for [address] Hernandez-antibiotic course must have been completed for 7 days Is patient currently taking any steroid medications? (i.e. Prednisone, Medrol) No For patients on steroid medications: Melissa Bolanos [place], [place]-steroid course must have been completed for [address] Hernandez-steroid course must have been completed for 7 days Review with patient: If you are started on any steroids or antibiotics between now and your appointment, you must contact us because it may affect our ability to perform your procedure informed Is patient actively being treated for cancer or immunocompromised, including the spleen having beenremoved? No For Dr. Camara patients without spleens should have the chart sent to her (If YES, do NOT schedule and route to RN) Are you able to get on and off an exam table with minimal or no assistance? Yes (If NO, do NOT schedule and route to RN) Are you able to roll over and lay on your stomach with minimal or no assistance? Yes (If NO, do NOT schedule and route to RN) Any allergies to contrast dye, iodine, shellfish, or numbing and steroid medications? No (If so, inform nursing and note in scheduling comments.) Allergies: Lisinopril Any chance of ?Not Applicable Has the patient had a flu shot or any other vaccinations within 7 days before or after the procedure. No Does patient have an MRI/CT? YES: MRI (SI joint, hip injections, lumbar sympathetic blocks, and stellate ganglion blocks do not require an MRI) ?? If so, was it done at [facility]? No ?? If not, where was it done? [facility] Was the MRI done w/in the last 3 years? Yes If MRI was not done at [facility], [facility] do NOT schedule. Route to nursing. (If pt has disc the injection can be scheduled but pt has to bring disc to appt. If they show up w/out discthe injection cannot be done) Reminders (please tell patient if applicable): ?? Instructed pt to arrive 30 minutes early for IV start if this is for a cervical procedure, ALL sympathetic (stellate ganglion, hypogastric, or lumbar sympathetic block) and all sedation procedures(RFA, spinal cord stimulation trials). Not Applicable -IVs are not routinely placed for Melissa and Jax cervical case ?? If NPO for sedation, informed patient that it is okay to take medications with sips of water (except if they are to hold blood thinners). Not Applicable *DO take blood pressure medication if it is prescribed* ?? If this is for a cervical TOM, informed patient that aspirin needs to be held for 6 days. Not Applicable ?? Do not schedule procedures requiring IV placement in the first appointment of the day or first appointment after lunch ?? For patients 85 or older we recommend having an adult stay w/ them for the remainder of the day. Does the patient have any questions? NO Rangel Doyle.[facility] [employer] documented in this encounter Plan of Treatment Not on file documented as of this encounter Visit Diagnoses Not on filedocumented in this encounter Care Teams Pre Owned Sales Manager Relationship Specialty Start Date End Date Hilario [place] PCP - General 05/30/16 [place] [address] [place], [place] [address] Assigned Neuroscience Provider 01/30/20 12/02/20 Ismael Ordoñez PA-C [address] [place] [address] Assigned Surgical Provider 05/31/2003/06 Ismael Ordoñez PA-C [address] [place] [id number] Assigned Neuroscience Provider 12/03/20 documented as of this encounter
--- OUTSIDE RECORDS SUMMARY | 2023-04-05 09:22 | XMS_ITS | Encounter Summary ---
Author Name Unknown Organization [facility] Address [address] [place] [address] Care Team Providers Care Dietetic Intern Name Role Phone Carolynn Alvarado MD Primary Care Provider [phone] Encounter Details Date Type Department Care Team Description 03/31/2023 Orders Only [facility] Provider, [place] [address] Social History Tobacco Use Types Packs/Day Years Used Date Smoking Tobacco: Never Smokeless Tobacco: Never Alcohol Use Standard Drinks/Week Comments No 0 (1 standard drink = 0.6 oz pur e alcohol) PHQ-2 Answer Date Recorded PHQ-2 Score 1 03/27/2023 Sex and Gender Information Value Date Recorded Sex Assigned at Not on file Gender Identity Not on file Sexual Orientation Not on file documented as of this encounter Plan of Treatment Upcoming Encounters Date Type Department Care Team Description 04/10/2023 8:30 AM WEB PAGE DESIGNER Appointment [place] [address] Family Medicine [address] [place] [phone] [place] [address] [place] [address] 04/15/2023 10:45 AM WEB PAGE DESIGNER Appointment [facility] [address] [facility] [place] 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
--- OUTSIDE RECORDS SUMMARY | 2023-04-05 09:22 | XMS_ITS | Encounter Summary ---
Author Name Unknown Organization [facility] Address [address] [place] [address] Care Team Providers Care Hammer Heater Name Role Phone Carolynn Alvarado MD Primary Care Provider [phone] Reason for Referral * Procedure/Equipment (Routine) - New Request Specialty Diagnoses / Procedures Referred By Cecille t Referred To Contact Diagnoses Paroxysmal atrial fibrillation (HRC) Curt Wolfe MD [address] [place] [address] Referral ID Status Reason Start Date Expiration Date V isits Requested Visits Authorized [id number] New Request 03/24/2023 06/22/2024 1 1 Scheduling Instructions Your clinician has recommended an appointment with Veda Dudley. You may call [phone] to schedule your appointment. We suggest you call your health insurance company about your coverage and benefits for this appointment. Question Answer Appointment Urgency? Non-Urgent Monitoring timeframe: 8 -15 days Comments Patient to receive monitor: By mail LINE COOK Reason for Visit * Reason Comments Follow-up Atrial Fibrillation Encounter Details Date Type Department Care Team Description 03/24/2023 3:15 PM BACK LINE COOK Office Visit [facility] [address] [facility]. [place] [address] Curt Wolfe MD [address] [place] [address] Nurse, Cardiology II [facility] [address] [facility] [address] Paroxysmal atrial fibrillation (HRC) (Primary Dx); Nonrheumatic aortic valve insufficiency (HRC); Essential hypertension (HRC); Mixed hyperlipidemia (HRC); Dilated aortic root (HRC) Social History Tobacco Use Types Packs/Day Years Used Date Smoking Tobacco: Never Smokeless Tobacco: Never Alcohol Use Standard Drinks/Week Comments No 0 (1 standard drink = 0.6 oz pur e alcohol) PHQ-2 Answer Date Recorded PHQ-2 Score 1 03/14/2022 Sex and Gender Information Value Date Recorded Sex Assigned at Not on file Gender Identity Not on file Sexual Orientation Not on file documented as of this encounter Last Filed Vital Signs Vital Sign Reading Time Taken Comments Blood Pressure 140/78 03/24/2023 3:35 PM BACK LINE COOK Pulse 2 03/24/2023 4:10 PM BACK LINE COOK Temperature - - Respiratory Rate - - Oxygen Saturation - - Inhaled Oxygen Concentration - - Weight 62.1 kg (137 lb) 03/24/2023 2:54 PM BACK LINE COOK Height 162.6 cm (5' 4) 03/24/2023 2:54 PM BACK LINE COOK Body Mass Index 23.52 03/24/2023 2:54 PM BACK LINE COOK documented in this encounter Patient Instructions * Patient Instructions* Curt Wolfe MD - 03/24/2023 3:15 PM BACK LINE COOK Images from the original note were not included. Dear Ms. Franz This is my recommendation for you: MEDICATIONS: NO CHANGE Please check your blood pressure. Goal of blood pressure = 130/80 or less. Please watch your salt intake. Daily intake of salt/sodium = 2000 mg RECOMMENDED FURTHER TESTING: I WILL UPDATE YOU THE REPORTS BECOME AVAILABLE. PLEASE DISCUSS WITHUR INSURANCE REGARDING COVERAGE OF THE ORDERED TESTS. PLEASE CALL [phone] TO GET A PRELIMINARY ASSESSMENT OF THE COST, IF THE INSURANCE DOES NOT COVER THE TEST. ZIOPATCH MONITOR FOLLOW UP: 3-4 MONTHS. EXERCISE: Please try to exercise at moderate intensity at least 30 minutes at least 5 days a week. CONTACT INFORMATION: Please call at [phone] (Ms Aspen Otto RN) if you have any routine question between 8 AM and 5 PM. If you have any urgent question between 5 PM to 8 AM and also over the weekends and holidays, please call at [phone] ([facility] care line) If you have any symptom which needs immediate attention, please go to the urgent care or ER depending on your concern. It is my pleasure taking care of you. Curt Wolfe MD Rn Plastic Surgery warehouse associate [facility] heart and vascular [place] [address] [place] [address] LINE COOK documented in this encounter Progress Notes * Curt Wolfe MD - 03/24/2023 3:15 PM CST Images from the original note were not included. CARDIOLOGY NOTE Ms. Michelle Franz is a delightful 77 y.o. female, who I had the pleasure of seeing today. She has hypertension, hyperlipidemia, aortic regurgitation. She had 1 episode of atrial fibrillation following a noncardiac surgery in April 2021. Follow-up ZIO patch did not show any evidence of atrial fibrillation. She was not anticoagulated. She [facility] on [facility] 23, 2023 with atrial fibrillation. She was very symptomatic when she woke up from sleep. She was cardioverted and She was initiated on Eliquis. She took Eliquis for 1 month. She mentioned that it is extremely expensive. She had to pay over 400 dollars for a month's supply of Eliquis. She is now off anticoagulation. [facility] MEDICAL HISTORY PERTINENT TO CARDIOVASCULAR SYSTEM: Essential hypertension (HRC) Aortic insufficiency (HRC) Atrial fibrillation, 2 documented episodes. Her CHADS2 Vasc score is 4. Thoracic aortic aneurysm without rupture (HRC) Mixed hyperlipidemia (HRC) MEDICATIONS, ALLERGIES, SOCIAL AND FAMILY HISTORY MEDICATIONS PERTINENT TO CARDIOVASCULAR SYSTEM: amLODIPine (NORVASC) 10 MG tablet Take 1 Tablet (10 mg) by mouth daily. atenolol (TENORMIN) 25 MG tablet Take 1 Tablet (25 mg) by mouth daily. DULoxetine (CYMBALTA) 20 MG capsule TAKE 1 CAPSULE(20MG) BY MOUTH DAILY. TAKE ALONG WITH CURRENT 60MG CAPSULE= 80MG TOTAL DAILY DOSE DULoxetine (CYMBALTA) 60 MG capsule TAKE 1 CAPSULE(60 MG) BY MOUTH DAILY famotidine (PEPCID) 20 MG tablet Take 1 Tablet (20 mg) by mouth two times daily as needed for Heartburn. LORazepam (ATIVAN) 0.5 MG tablet TAKE 1 TO 2 TABLETS BY MOUTH EVERY NIGHT AT BEDTIME methocarbamol (ROBAXIN) 500 MG tablet TAKE 1 TABLET(500 MG) BY MOUTH AT BEDTIME NEEDED pregabalin (LYRICA) 25 MG capsule Take 2 Capsules (50 mg) by mouth two times a day. Start with 1 tablet at bedtime. ALLERGIES : reviewed in the EMR. Lisinopril SOCIAL HISTORY: REVIEWED AND UPDATED IN THE EMR. She used to work at the [employer]. 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 FAMILY HISTORY: REVIEWED AND UPDATED IN THE EMR. REVIEW OF SYSTEMS: Per history of present illness. The rest of the complete review of systems were done and was found to be negative apart from aforementioned. PHYSICAL EXAMINATION BP (!) 140/78 Pulse (!) 2 Ht 5' 4 (162.6 cm) Wt 137 lb (04819 g) BMI 23.52 kg/m?? Head, Eyes, ENT: Unremarkable. Oropharynx normal. NECK: Supple. No carotid bruit. Normal jugular venous pressure. CHEST: Clear to auscultation. CARDIOVASCULAR: Regular rate and rhythm. No murmur, rub or gallop. ABDOMEN: Soft, nontender. EXTREMITIES: No cyanosis, clubbing, edema. NEUROLOGIC: Nonfocal. PSYCHIATRIC: Alert and oriented x3. DIAGNOSTIC STUDIES PERTINENT TO CARDIOVASCULAR SYSTEM : EKG was done and was personally interpreted by me: Normal sinus rhythm. Normal IA interval. Normal axis. Normal QT interval and QRS duration. No ischemic ST-T wave changes. Echocardiogram done on March 2021 1. Left ventricular chamber size is normal. Normal left ventricular wall thickness. Global and regional left ventricular function is normal. Left ventricular ejection fraction is visually estimated at 60%. Normal left ventricular diastolic function. 2. Normal right ventricle size and normal global function. 3. The aortic valve is tricuspid. There is mild aortic sclerosis without evidence of aortic stenosis. Mild to moderate aortic regurgitation. 4. Mild dilation of the aorta is present involving the ascending aorta. (Maximal dimension 4.1 cm). 5. No pulmonary hypertension. 6. The inferior vena cava is small suggesting volume depletion. 7. There is no pericardial effusion. 8. Compared to the previous study done on 03/03/18, there has been no significant change. LABS Lab Results Component Value Date/Time SODIUM 141 04/08/2022 10:25 AM K 4.0 04/08/2022 10:25 AM BUN 10 04/08/2022 10:25 AM CREATININE 0.70 04/08/2022 10:25 AM GLUCOSE 78 04/08/2022 10:25 AM GFR >60 04/08/2022 10:25 AM Lab Results Component Value Date Cholesterol 188 06/26/2022 HDL Cholesterol 47 06/26/2022 Triglyceride 264 (H) 06/26/2022 LDL, Calculated 88 06/26/2022 Lab Results Component Value Date Hemoglobin A1C 5.4 05/01/2020 Hemoglobin A1C (Rapid) 5.5 03/14/2022 Lab Results Component Value Date/Time WBC 8.2 06/26/2022 08:49 AM HGB 13.2 06/26/2022 08:49 AM PLTS 440 06/26/2022 08:49 AM Lab Results Component Value Date TSH, Sensitive 1.32 06/26/2022 ASSESSMENT : 2 episodes of paroxysmal atrial fibrillation. She is currently off anticoagulation because she willbe undergoing spine surgery. Her CHADS2 Vasc score is 4. She mentioned that DOACs are very expensive. She would rather go with Coumadin if she develops paroxysmal atrial fibrillation. She is interested in buying an Apple watch to monitor her pulse. Hypertension Sjon-je-oyahthrg aortic insufficiency Mild dilatation of the aorta Mixed hyperlipidemia RECOMMENDATION AND DISCUSSION : Okay to be off anticoagulation for the time being, since she will be undergoing spine surgery. 14 day ZIO patch monitor following surgery. I also told her to monitor her pulse with Apple watch. If she has paroxysmal atrial fibrillation, we will initiate her on Coumadin. Follow-up in cardiology clinic in 3-4 months or as needed. I have given my contact number so that I can be contacted with any cardiovascular question/issues in the interim. It was a pleasure seeing Ms. Michelle Franz in cardiovascular consultation. Should you have any question regarding her care, please do not hesitate to contact me. Thanks again. Curt Wolfe MD Rn Plastic Surgery Electronic Security Technician [facility] [place] Patient Instructions Dear Ms. Franz This is my recommendation for you: MEDICATIONS: NO CHANGE Please check your blood pressure. Goal of blood pressure = 130/80 or less. Please watch your salt intake. Daily intake of salt/sodium = 2000 mg RECOMMENDED FURTHER TESTING: I WILL UPDATE YOU THE REPORTS BECOME AVAILABLE. PLEASE DISCUSS WITHYOUR INSURANCE REGARDING COVERAGE OF THE ORDERED TESTS. PLEASE CALL [phone] TO GET A PRELIMINARY ASSESSMENT OF THE COST, IF THE INSURANCE DOES NOT COVER THE TEST. ZIOPATCH MONITOR FOLLOW UP: 3-4 MONTHS. EXERCISE: Please try to exercise at moderate intensity at least 30 minutes at least 5 days a week. CONTACT INFORMATION: Please call at [phone] (Ms Aspen Otto RN) if you have any routine question between 8 AM and 5 PM. If you have any urgent question between 5 PM to 8 AM and also over the weekends and holidays, please call at [phone] ([facility]) If you have any symptom which needs immediate attention, please go to the urgent care or ER depending on your concern. It is my pleasure taking care of you. Curt Wolfe MD Rn Plastic Surgery warehouse associate [facility] vascular [place] [address], [facility] [place] [address] Total time: 40 minutes including review of the chart and detail medical record, discussion of symptoms, differential diagnosis of symptoms, education regarding underlying medical conditions, diagnostic approach, review of studies, further evaluations, therapeutic choices, their rationale, and actions to take if additional problems are encountered, coordination of care and was also based on complexity. Disclaimer: To increase the efficiency, the document has been prepared/ edited using voice recognition software. Every effort has been made to correct any errors made during the preparation of this note. However, if the word or phrase is confusing or does not make sense, this is likely due to voicerecognition and interpretation errors and typographical errors within the program which were not discovered during editing. Please do not hesitate to contact me to address any errors. LINE COOK documented in this encounter Plan of Treatment Upcoming Encounters Date Type Department Care Team Description 04/10/2023 8:30 AM BACK LINE COOK Appointment [place] [address] Family Medicine [address] [place] [phone] [place] [address] [address] [place], [place] [id number] 04/15/2023 10:45 AM BACK LINE COOK Appointment [facility] [address] [facility]. [place], [place] [id number] Sin Castorena MD [address] [place] [address] Scheduled Referrals Name Type Priority Associated Diagnoses Orde r Schedule ZIOPATCH Holter Adults/Peds Referral Routine Paroxysmal atrial fibrillation (HRC) Ordered: 03/24/2023 documented as of this encounter Procedures Procedure Name Priority Date/Time Associated Diagnosis Comments ECG 12 LEAD OUTPATIENT Routine 03/24/2023 3:09 PM BACK LINE COOK Paroxysmal atrial fibrillation (HRC) documented in this encounter Results * ECG 12 Lead Outpatient (03/24/2023 3:09 PM BACK LINE COOK) Ventricular Rate 61 BPM MUSE [facility] Atrial Rate 61 BPM MUSE [facility] P-R Interval 158 ms MUSE GHP QRS Duration 86 ms MUSE GHP QT 452 ms MUSE GHP QTc 455 ms MUSE GHP P [place] 51 degrees MUSE GHP R [place] -8 degrees MUSE GHP T [place] 29 degrees MUSE GHP 03/24/2023 3:09 PM BACK LINE COOK Narrative MUSE [facility]HP - 03/24/2023 3:26 PM BACK LINE COOK Sinus rhythm Normal ECG When compared with ECG of 26-APR-2021 16:44, No significant change was found Confirmed by Curt Wolfe ([id number]) on 03/24/2023 3:26:04 PM Procedure Note Curt Wolfe MD - 03/24/2023 Sinus rhythm Normal ECG When compared with ECG of 26-APR-2021 16:44, No significant change was found Confirmed by Curt Wolfe ([id number]) on 03/24/2023 3:26:04 PM Curt Wolfe MD PN ECG ORDERABLES MUSE [facility] [address] [place] [address] documented in this encounter Visit Diagnoses Diagnosis Paroxysmal atrial fibrillation (HRC)- Primary Atrial fibrillation Nonrheumatic aortic valve insufficiency (HRC) Aortic valve disorders Essential hypertension (HRC) Unspecified essential hypertension Mixed hyperlipidemia (HRC) Mixed hyperlipidemia Dilated aortic root (HRC) Aortic ectasia, unspecified site documented in this encounter Additional Health Concerns Infection Onset Date Last Indicated Resolved Time 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
--- OUTSIDE RECORDS SUMMARY | 2023-04-05 09:22 | XMS_ITS | Encounter Summary ---
Author Name Unknown Organization [facility] Address [address], [place] [address] Care Team Providers Care Public Information Specialist Name Role Phone Carolynn Alvarado MD Primary Care Provider [phone] Reason for Visit * Reason Comments Spine Lumbar Encounter Details Date Type Department Care Team Description 01/31/2023 11:15 AM INVESTMENT SALES ASSISTANT Therapy [facility] [address] [address] Rona Mcgrath, PT [address] [place] [address] Chronic bilateral low back pain, unspecified whether sciatica present (Primary Dx); Lumbar radiculopathy, right Social History Tobacco Use Types Packs/Day Years [...] on file documented as of this encounter Progress Notes * Rona Mcgrath, PT - 01/31/2023 11:15 AM CST Physical Therapy Progress Note Visit Number: 3 Initial Certification Period: 01/14 to 04/14/23 Referring Provider: Isai Foss Neurosurgery Visit Diagnosis: 1. Chronic bilateral low back pain, unspecified whether sciatica present 2. Lumbar radiculopathy, right Precautions: PMH chronic neck pain, thoracic aortic aneurysm, lymphocytosis, HTN, insomnia,skin cancer, aortic insufficiency, per patient osteoporosis and scoliosis, PMH surgery 3 lumbar procedures, microdiskectomy, 3 cervical fusions, prior pelvic fractures Onset/Referral Date: onset age 22, flare up of pain over past year - last back surgery 04/2022, referral 01/02/23 SUBJECTIVE: Michelle is here for PT recheck. She has been doing her HEP. She can feel her muscles working. She reports really no change with her pain. She can only stand 5-10 min with cooking or home chores and hasto sit due to back and R leg pain. She reports fairly constant pain and can get up to 10/10 at times R lower back to glut down lateral thigh to knee, intermittent numbness/tingling in the R thigh, she also has intermittent L sided pain same region. Sleep she wakes every 2 hours and then it takes awhile to fall back asleep due to pain. Sitting is limited to about 30 min due to pain. OBJECTIVE Current Objective Findings: Observe: transitions today slower and use of hands to assist up and down chair, mat table Strength: 30 sec sit to stand chair 8 reps notes pain following Endurance: 6 min walk Vital signs prior L auto cuff BP 140/82, HR 64, O2 97%, following 6 min walking 156/90, HR 78, O2 97% Walked no device total of 1025 feet, reported increase in LBP end of 6 min of walking notes 7/10 LBP Non antalgic gait but limited duration due to pain Standing Posture: Use of very good supportive tennis shoe, L shoulder elevated, L iliac crest lower vs R side Oswestry today 60% - initial score was better at 54% Treatment/Education Today: Therapeutic Exercise: 30 minutes Objective above and Reviewed all HEP below at least up to 5-10 reps and modified today removed sidelying hip abduction due to increase in hip and back pain, issued new handout -Supine Posterior Pelvic Tilt + exhale - 1-2 x daily - 10 reps - Supine Scapular Retraction - 1-2 x daily - 10 reps - Hooklying Position Glut SEts - 1-2 x daily - 10 reps - Standing rather than sidelying Hip Abduction + trunk SB isometric - 1-2 x daily - 10 reps -sit to stand Bed 10 reps 1-2 x day -home balance exercise - SLS face out of corner x 3 reps NEW - -Posterior tilt + heel slide 10-20 reps 1-2 x day -Posterior tilt + butterfly LE motion 10-20 reps 1-2 x day Self care/Education: 10 minutes in event she has surgery - Reviewed log roll in bed Reviewed her bathroom set up Reviewed her daughter is available to come and assist her Reviewed she does not have a rolling walker at home Reviewed break up sitting no > 45-60 min Use of night lights, rail on steps Timed Code Treatment Minutes: 40 Total Treatment Minutes: 40 Current Home Exercise Program List: Access Code: [email or web address] URL: [email or web address] See above ASSESSMENT/PROGRESS TOWARD GOALS: Pain level has not improved, she is very motivated with her HEP and reports this is still working her muscles and not increasing pain, outcome measure has decreased unfortunately. Functional Goals/Outcomes: HEP/Independent Management: Demonstrate independence with HEP and self- management following each treatment session ADL's: Stand for at least 20-30 minutes with mild or without increased symptoms in 4-6 weeks. Ambulation: Ambulate for unlimited distance to walk her dog with mild or without increased symptomsin 4-6 weeks. Outcome: improve oswestry by at least 12% in 4-6 weeks. PLAN: Continue work on her HEP, recommend discharge from skilled PT at this time due worsening outcome measures and no change with her pain. STMENT SALES ASSISTANT documented in this encounter Plan of Treatment Upcoming Encounters Date Type Department Care Team Description 04/10/2023 8:30 AM INVESTMENT SALES ASSISTANT Appointment [place] [address] Family Medicine [address] [place] [phone] [place] [address] [place] [address] 04/15/2023 10:45 AM INVESTMENT SALES ASSISTANT Appointment [facility] [address] [facility] [place] [address] Sin Castorena MD [address] [place], [place] [address] documented as of this encounter Visit Diagnoses Diagnosis Chronic bilateral low back pain, unspecified whether sciatica present- Primary Lumbar radiculopathy, right documented in this encounter Additional Health Concerns Infection Onset Date Last Indicated Resolved Time 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 (+) 11/07/2015 11/07/2015 documented as of this encounter Care Teams Public Information Specialist Relationship Specialty Start [place] [address] [address] [address] PCP - General Internal Medicine 11/09/15 documented as of this encounter
--- OUTSIDE RECORDS SUMMARY | 2023-04-05 09:22 | XMS_ITS | Encounter Summary ---
Author Name Unknown Organization [facility] Address [address] [place] [address] Care Team Providers Care Slitter And Cutter Operator Name Role Phone Carolynn Alvarado MD Primary Care Provider [phone] Encounter Details Date Type Department Care Team Description 02/17/2023 12:00 PM PARTS COUNTERMAN Lab Visit [facility] [address] [place] [phone] Stress incontinence of urine Social History Tobacco Use Types Packs/Day Years [...] Department Care Team Description 04/10/2023 8:30 AM PARTS COUNTERMAN Appointment [place] [address] [facility] [address] [place] [phone] [place] [address] [place] [address] 04/15/2023 10:45 AM PARTS COUNTERMAN Appointment [place] [address] [facility] [address] Sin Castorena MD [address] [place] [address] documented as of this encounter Procedures Procedure Name Priority Date/Time Associated Diagnosis Comments URINALYSIS ROUTINE, MICRO/CULTURE IF POS Routine 02/17/2023 11:57 AM PARTS COUNTERMAN Stress incontinence of urine documented in this encounter Results * (ABNORMAL) Urinalysis Routine, Micro/Culture if Pos: Clean Catch (02/17/2023 11:57 AM PARTS COUNTERMAN) Urine Culture Comment Urinalysis results do not meet criteria for urine culture reflex. 02/17/2023 11:59 AM PARTS COUNTERMAN [facility] Urine Color Yellow 02/17/2023 11:59 AM [facility] Urine Clarity Clear Clear 02/17/2023 11:59 AM [facility] Specific Scott, Urine 1.020 1.005 - 1.030 02/17/2023 11:59 AM [facility] PH Urine 5.5 5.0 - 8.0 02/17/2023 11:59 AM [facility] Protein, Urine Qual (mg/dL) Trace Neg/Trace 02/17/2023 11:59 AM [facility] Glucose Urine Qual (mg/dL) Negative Negative 02/17/2023 11:59 AM [facility] Ketones, Urine (mg/dL) Trace(A) Negative 02/17/2023 11:59 AM [facility] Urobilinogen, Urine (EU/dL) 0.2 <2.0 02/17/2023 11:59 AM [facility] Bilirubin Urine Negative Negative 02/17/2023 11:59 AM [facility] Blood, Urine Negative Neg/Trace 02/17/2023 11:59 AM [facility] Nitrite Urine Negative Negative 02/17/2023 11:59 AM PARTS COUNTERMAN [facility] Leukocyte Est. Negative Negative 02/17/2023 11:59 AM [facility] Urine Source Clean Catch 02/17/2023 11:59 AM [facility] Urine URINE SPECIMEN COLLECTION, CLEAN CATCH / Unknown Non-blood Collection / Unknown 02/17/2023 11:57 AM PARTS COUNTERMAN 02/17/2023 11:57 AM PARTS COUNTERMAN Margarethmeg Edwards [facility] [address] [place] [address], [facility] [phone] documented in this encounter Visit Diagnoses Diagnosis Stress incontinence of urine documented in this encounter Additional Health Concerns Infection Onset Date Last Indicated Resolved Time 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
--- OUTSIDE RECORDS SUMMARY | 2023-04-05 09:22 | XMS_ITS | Encounter Summary ---
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 Medical history, current medications, and allergies reviewed. Routine eye exam. Assessment: ICD-10-CM 1. Examination of eyes and vision Z01.00 Refractive State, Determination Of 2. Myopia with astigmatism and presbyopia, bilateral H52.13 Refractive State, Determination Of H52.203 H52.4 3. Bilateral pseudophakia Z96.1 Refractive State, Determination Of 4. Esotropia H50.00 5. Hypertropia of right eye H50.21 6. 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 Discussed findings with patient. Rx given for new glasses if desired. SVL reading glasses withincreased plus (+3.00 added to MRx) given if she desires a hobby pair of glasses to allow her to enjoy crocheting and doing the cross-word puzzles again. 4-5. Prism left unchanged. Advised to call if symptoms of double vision worsens. 6-7. Continue to follow-up with Dr. Sin Castorena for continued management and treatment. RTC 1 year or sooner as needed. documented in this encounter Plan of Treatment Upcoming Encounters Date Type Department Care Team Description 04/10/2023 8:30 AM FACEPIECE LINE SUPERVISOR Appointment [place] [address] [facility] [address] [place] [phone] [place] [address] [place] [address] 04/15/2023 10:45 AM FACEPIECE LINE SUPERVISOR Appointment [facility] [address] [facility] 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
--- OUTSIDE RECORDS SUMMARY | 2023-04-05 09:22 | XMS_ITS | Encounter Summary ---
Author Name Unknown Organization [facility] Address [address] [place] [address] Care Team Providers Care Fringing Machine Operator Name Role Phone Carolynn Alvarado MD Primary Care Provider Encounter Details Date Type Department Care Team Description 03/24/2023 Notes/Orders [facility] Electrocardiogram, Holter, Event Recorder [address] [place], [place] [phone] Curt Wolfe MD [address] [place] [address] Paroxysmal atrial fibrillation (HRC) (Primary Dx) Social History Tobacco Use Types [...] Department Care Team Description 04/10/2023 8:30 AM STEMMING MACHINE OPERATOR Appointment [place] [address] Family Medicine [address] [place] [address] [place] [address] [place] [address] 04/15/2023 10:45 AM STEMMING MACHINE OPERATOR Appointment [facility] [address] [facility] 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
--- OUTSIDE RECORDS SUMMARY | 2023-04-05 09:22 | XMS_ITS | Encounter Summary ---
Author Name Unknown Organization [facility] Address [address] [place] [address] Care Team Providers Care Corduroy Cutter Operator Name Role Phone Carolynn Alvarado MD Primary Care Provider [phone] Encounter Details Date Type Department Care Team Description 03/27/2023 11:00 AM PATIENT COORDINATOR FRONT DESK Lab Visit [facility] [address] [place] [phone] Dilated aortic root (HRC); History of atrial fibrillation; Essential hypertension (HRC) Social History Tobacco Use Types Packs/Day [...] Department Care Team Description 04/10/2023 8:30 AM PATIENT COORDINATOR FRONT DESK Appointment [place] [address] Family Medicine [address] [place] [phone] [place] [address] [place] [address] 04/15/2023 10:45 AM PATIENT COORDINATOR FRONT DESK Appointment [facility] [address] [place] [address] iSn Castorena MD [address] [place] [address] documented as of this encounter Procedures Procedure Name Priority Date/Time Associated Diagnosis Comments BASIC METABOLIC PANEL Routine 03/27/2023 10:51 AM PATIENT COORDINATOR FRONT DESK Essential hypertension (HRC) COMPLETE BLOOD COUNT-NO DIFF Routine 03/27/2023 10:51 AM PATIENT COORDINATOR FRONT DESK Dilated aortic root (HRC) INR/PROTIME Routine 03/27/2023 10:51 AM PATIENT COORDINATOR FRONT DESK History of atrial fibrillation documented in this encounter Results * Basic Metabolic Panel (03/27/2023 10:51 AM PATIENT COORDINATOR FRONT DESK) Sodium 142 136 - 145 mmol/L 03/27/2023 4:45 PM [facility] Potassium 3.7 3.5 - 5.1 mmol/L 03/27/2023 4:45 PM [facility] Chloride 104 98 - 109 mmol/L 03/27/2023 4:45 PM [facility] CO2 25 20 - 29 mmol/L 03/27/2023 4:45 PM [facility] Anion Gap 13 7 - 16 mmol/L 03/27/2023 4:45 PM [facility] Calcium 9.3 8.4 - 10.4 mg/dL 03/27/2023 4:45 PM [facility] BUN 14 7 - 26 mg/dL 03/27/2023 4:45 PM [facility] Creatinine 0.73 0.55 - 1.02 mg/dL 03/27/2023 4:45 PM [facility] Glucose 87 70 - 100 mg/dL 03/27/2023 4:45 PM [facility] Comment:The given reference range is for the fasting state. Non-fasting reference range for glucose is 70 - 180 mg/dL. GFR, Estimated >60 >60 mL/min/1.7 3m2 03/27/2023 4:45 PM [facility] Hours Fasting 0.0 8 - 12 Hours 03/27/2023 4:45 PM [facility] Blood Venipuncture / Unknown 03/27/2023 10:51 AM PATIENT COORDINATOR FRONT DESK 03/27/2023 10:51 AM PATIENT COORDINATOR FRONT DESK Isidoro Leach MD LAB_[address] [facility] [address] [place] [address], [facility] [phone] * INR/Protime (03/27/2023 10:51 AM PATIENT COORDINATOR FRONT DESK) Pathologist [facility] Protime 12.4 11.8 - 14.6 Seconds 03/27/2023 11:05 AM [facility] INR 0.9 0.9 - 1.1 03/27/2023 11:05 AM [facility] Blood Venipuncture / Unknown 03/27/2023 10:51 AM PATIENT COORDINATOR FRONT DESK 03/27/2023 10:51 AM PATIENT COORDINATOR FRONT DESK Narrative [facility] - 03/27/2023 11:05 AM PATIENT COORDINATOR FRONT DESK Therapeutic range determined by protocol established by anticoagulation provider. Isidoro Leach MD LAB_1 Performing Organization Address [facility]/ZIP Co de Phone Number [facility] [address] [place] [address], [facility] [phone] * Complete Blood Count-No Diff (03/27/2023 10:51 AM PATIENT COORDINATOR FRONT DESK) [facility] WBC 9.0 3.5 - 10.5 x10(9)/L 03/27/2023 10:55 AM [facility] RBC 4.17 3.90 - 5.03 x10(12)/L 03/27/2023 10:55 AM [facility] Hemoglobin 12.9 12.0 - 15.5 g/dL 03/27/2023 10:55 AM [facility] HCT 39.5 34.9 - 44.5 % 03/27/2023 10:55 AM [facility] MCV 94.7 80.0 - 100.0 fL 03/27/2023 10:55 AM [facility] MCH 30.9 27.6 - 33.3 pg 03/27/2023 10:55 AM [facility] MCHC 32.7 31.5 - 35.2 g/dL 03/27/2023 10:55 AM [facility] RDW 12.7 11.9 - 15.5 % 03/27/2023 10:55 AM [facility] Platelets 432 150 - 450 x10(9)/L 03/27/2023 10:55 AM [facility] Blood Venipuncture / Unknown 03/27/2023 10:51 AM PATIENT COORDINATOR FRONT DESK 03/27/2023 10:51 AM [facility] Isidoro Leach MD LAB_1 [facility] [address] [place] [address], [facility] [phone] documented in this encounter Visit Diagnoses Diagnosis Dilated aortic root (HRC) Aortic ectasia, unspecified site History of atrial fibrillation Personal history of other diseases of circulatory system Essential hypertension (HRC) Unspecified essential hypertension documented in this encounter Additional Health Concerns Infection Onset Date Last Indicated Resolved Time 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
--- OUTSIDE RECORDS SUMMARY | 2023-04-05 09:22 | XMS_ITS | Encounter Summary ---
Author Name Unknown Organization [facility] Address [address], [place] [address] Care Team Providers Care Direct Sales Professional Name Role Phone Carolynn Alvarado MD Primary Care Provider [phone] Encounter Details Date Type Department Care Team Description 01/31/2023 Notes/Orders [facility] [address] [id number] Rona Mcgrath, PT [address] [place] [address] Social History Tobacco Use Types Packs/Day Years [...] of this encounter Progress Notes * Rona Mcgrath PT - 01/31/2023 12:35 PM CST Physical Therapy Discharge Summary Outcome measures at discharge: Attainment of goals: See above Patient Compliance with Therapy: Patient was compliant with attendance and therapy recommendations. Discharge recommendations: It is recommended that Michelle return to the physician. NSED VETERINARY TECHNICIAN documented in this encounter Plan of Treatment Upcoming Encounters Date Type Department Care Team Description 04/10/2023 8:30 AM LICENSED VETERINARY TECHNICIAN Appointment [place] [address] Family Medicine [address] [place] [phone] [place] [address] [place] [address] 04/15/2023 10:45 AM LICENSED VETERINARY TECHNICIAN Appointment [address] [place] [address]. 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
--- OUTSIDE RECORDS SUMMARY | 2023-04-05 09:22 | XMS_ITS | Encounter Summary ---
Author Name Unknown Organization [facility] Address [address] [place] [address] Care Team Providers Care Health Program Director Name Role Phone Carolynn Alvarado MD Primary Care Provider [phone] Encounter Details Date Type Department Care Team Description 02/19/2023 [facility] [address] [facility]. [place], [place] [address] Mychart, [place] [address] Social History Tobacco Use Types Packs/Day Years [...] Department Care Team Description 04/10/2023 8:30 AM HAND WASHER Appointment [place] [address] Family Medicine [address] [place] [phone] [place] [address] [place] [address] 04/15/2023 10:45 AM HAND WASHER Appointment [facility] [address] [facility]. 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
--- OUTSIDE RECORDS SUMMARY | 2023-04-05 09:22 | XMS_ITS | Encounter Summary ---
Author Name Unknown Organization [facility] Address [address] [place] [address] Care Team Providers Care Turner And Former Automatic Name Role Phone Carolynn Alvarado MD Primary Care Provider [phone] Encounter Details Date Type Department Care Team Description 02/23/2023 Partner ED HIM DEPARTMENT Provider, MD Denice Interface provider interface provider, [address] 02/23/2023 Social History Tobacco Use Types Packs/Day Years [...] Department Care Team Description 04/10/2023 8:30 AM REMELT FURNACE EXPEDITER Appointment [place] [address] Family Medicine [address] [place] [phone] [place] [address] [place] [address] 04/15/2023 10:45 AM REMELT FURNACE EXPEDITER Appointment [facility] [address] [place] [facility] 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
--- OUTSIDE RECORDS SUMMARY | 2023-04-05 09:22 | XMS_ITS | Encounter Summary ---
Author Hub Email Address Preferred Language ENG Marital Status Worship Affiliation Unknown Race White Ethnic Group Non , /a, or Kenyan Origin Author Name Unknown Organization [facility] Address [address], [place] [address] Care Team Providers Care Radio Producer Name Role Phone Carolynn Alvarado MD Primary Care Provider [phone] Reason for Visit * Reason Comments PRE-OP EXAM Encounter Details Date Type Department Care Team Description 03/27/2023 10:30 AM LICENSED AND CERTIFIED MIDWIFE Pre-Op Visit [place] [address] Family [address] [place] [address] [phone] [place]idoro Le[place] [id number] [place] [id number] Preop examination (Primary Dx); Lumbosacral radiculopathy at L3; Essential hypertension (HRC); Mixed hyperlipidemia (HRC); Nonrheumatic aortic valve insufficiency (HRC); Dilated aortic root (HRC); History of atrial fibrillation Social History Tobacco Use Types Packs/Day Years [...] Sign Reading Time Taken Comments Blood Pressure 130/79 03/27/2023 10:25 AM LICENSED AND CERTIFIED MIDWIFE Pulse 82 03/27/2023 10:25 AM LICENSED AND CERTIFIED MIDWIFE Temperature - - Respiratory Rate 16 03/27/2023 10:25 AM LICENSED AND CERTIFIED MIDWIFE Oxygen Saturation - - Inhaled Oxygen Concentration - - Weight 62.1 kg (137 lb) 03/27/2023 10:25 AM LICENSED AND CERTIFIED MIDWIFE Height - - Body Mass Index 23.52 03/24/2023 2:54 PM LICENSED AND CERTIFIED MIDWIFE documented in this encounter Patient Instructions * Patient Instructions* Isidoro Leach MD - 03/27/2023 10:30 AM LICENSED AND CERTIFIED MIDWIFE Pre-op Instructions: Do not eat after midnight leading up to your surgery. You may have clear fluids such as water or Gatorade up to 4 hours prior to surgery. You can take your medications with a small sip of water unless directed otherwise. Stop taking all supplements, Fish Oil, Aspirin, Ibuprofen, Motrin, Advil and Aleve at least 7 days prior to surgery. You may take Tylenol as directed for pain relief. Follow your individualized medication recommendations as described above. In addition, please stop all jnkg-ebl-rkovbjh medications including aspirin, ibuprofen (Advil, Motrin), naproxen (Aleve, Naprosyn), herbal remedies and supplements one week prior to procedure unless directed otherwise by your care team. You may continue to take acetaminophen (Tylenol) up to the dayof your procedure. Continue all other medications as currently taking. Let your care team know if you have questions. On the day of your procedure, do not wear any hair product including hair sprays and gels and avoidusing body sprays and deodorants/antiperspirants. Bring with you to the site of the procedure: Any oral appliances or CPAP equipment related to sleep apnea Any other health-related equipment or devices you use daily NSED AND CERTIFIED MIDWIFE documented in this encounter Progress Notes * Isidoro Leach MD - 03/27/2023 10:30 AM CST Pre-Operative Assessment 03/27/2023 ET Amb PreOp Assessment Details Procedure lumbar fusion Surgeon Dr. Foss Location Other Other Location Name [facility] Procedure Date 04/01/2023 Juan Martinez is a 77 y.o. old female here for pre-operative evaluation for procedure noted above. The patient has had surgery previously without any anesthesia complications and denies any family history ofanesthesia complications. She denies any chest pain or shortness of breath with exertion and has otherwise been feeling well and at baseline. They voice no further concerns at this time. She had her 2nd lifetime episode of atrial fibrillation in February 2023. She was cardioverted and prescribed Eliquis, but she did not take this as it was too expensive. She saw her Tour Bus Driver chris few days ago at which time an EKG showed normal sinus rhythm. The plan is to obtain a 14 day ZioPatch after surgery and if she has paroxysmal atrial fibrillation they will start her on Coumadin. Patient Active Problem List Diagnosis Date Noted Lymphocytosis ([facility]) 04/22/2016 Overview Note: 04/22/[address] Norwood - the level of the patient has an absolute lymphocytosis. If persistent this could be early chronic lymphocytic leukemia. Flow cytometry may be helpful to further evaluate if it the count does not normalize Mixed hyperlipidemia ([facility]) 05/14/2017 Overview Note: 05/14/2017 10 year 9.03% (using the ACC/AHA ASCVD risk score). 05/01/2020 9% - DECLINES STATIN - LDL too low, trial atorvastatin 2017 Mild early onset dysthymic disorder, in full remission, with melancholic features, with pure dysthymic syndrome ([facility]) 04/02/2011 Overview Note: Follows Dr Bony Yanes annually - duloxetine 20 mg Essential hypertension ([facility]) 08/21/2002 Overview Note: hydrochlorothiazide 25, atenolol 75, norvasc 5 mg ; Hypertension Psychophysiological insomnia 10/12/2015 Routine health maintenance 02/08/2014 Overview Note: Reviewed at [facility] exam 04/20/06/13/20222020 Menstrual periods: Post menopausal - [id number] d/c'd HRT Calcium/vit D: Recommended daily DEXA: 2007 normal, DEXA 12/22/2014 mild low, DUE 05/2019 and consult 02/2020 with endo - plan for prolia to begin after neck surgery 2020, Ca and D. DEXA 10/2021 - Endo Prolia as of 06/13/2022. DUE DEXA 10/2023 ASA: discussed Obesity:Estimated body mass index is 24.05 kg/m?? as calculated from the following: Height as of this encounter: 1.645 m (5' 4.75). Weight as of this encounter: 65 kg (143 lb 6.4 oz). Exercise: Recommended daily 30 min Smoking cessation: Never smoker Mammogram: Last normal 03/12/2022, due Q1-2 years Pap smear: Last 2004, no further > 65, s/p hyst for prolapse Colonoscopy: Decline colonoscopy, 06/05/2021 negative FIT, due annually, 07/09/2022 NEG FIT Chronic insomnia 04/02/2011 Overview Note: Follows with Dr Bony Yanes - takes ativan 0.25 mg at bedtime, higher dose limited by fatigue. ; Insomnia, unspecified Symptomatic menopausal or female climacteric states 07/12/2010 Overview Note: LW Modifier: based on symptoms, post hyst 1979 LW Onset: 1999 ; Menopause Atrophy of vulva 07/12/2010 Overview Note: LW Onset: 04/2010 ; Genital Atrophy Female Aquired Vitamin D deficiency (HRC) 06/13/2022 Primary osteoarthritis of right hip 08/04/2020 H/O nonmelanoma skin cancer 11/10/2018 Overview Note: BCC: -left chin, s/p Mohs 10/2017 Hypertriglyceridemia (HRC) 03/10/2018 Cervical stenosis of spinal canal 09/10/2017 Overview Note: Added automatically from request for surgery [id number] History of dysplastic nevus 09/05/2017 Overview Note: rt posterior base of neck- Moderate to severe dysplasia 2004 Chronic neck and back pain 01/28/2017 Overview Note: S/p cervical fusion C3-5. Follows with neurosurgery. S/p lumbar discectomy Medical history and workup: Medications the patient has tried: Percocet: tabs per day = 1-2 Q4H PRN (DC'd 02/2018) and Gabapentin 300 mg QD PRN and Lorazepam 0.5-1 mg QD Rehabilitation (PT/OT/Medx)? Yes; date 2012- (PT) Behavioral health? Yes; date 2011- at [facility] Other treatment modalities tried: Injection; date 03/31, 11/2018 (bilateral thumbs) and 03/2017, 02/2017 (TPI). S/P C3-4 Cervical diskectomy and decompression 11/2017. S/P Lumbar microdiscectomy 05/2016. S/P C3-5 Cervical fusion 2014. Imaging (MRI within the past 2 years for cervical thoracic, 5 years for lumbar): CT Cervical 10/2018. Lumbar 11/2017. Cervical MRI 07/2017. Thoracic 01/2017. Any red flags present? None Lumbosacral radiculopathy at L3 04/22/2016 Overview Note: MRI St [facility] 04/22/2016 1) right paracentral disc bulge at L2-L3 with narrowing of the right foramen and spinal canal. 2) L3-L4 there is a central disc bulge with a questionable disc protrusion extending to the right lateral aspect of the L3 vertebral body/right lateral recess with right-sided foraminal narrowing at that level Low bone mass 12/21/2014 Overview Note: Wrist Fx 2018 with fall, endo plans prolia after neck surgery 2020 DEXA 12/22/2014 mild low, DUE [id number], Ca and D 05/24/2019 worsening, -2, FRAX 24.6% and 8.1% - [facility] to [facility] tx BP Aortic insufficiency (HRC) 03/04/2014 Overview Note: Moderate aortic insufficiency per echocardiogram in 2015. 03/03/2018 stable with mild dilation aorta 4.2 diameter Dilated aortic root (HRC) 03/04/2014 Overview Note: 11/2015 mild dilation, Dr Wolfe recommended repeat in 3 years. Past Medical History: Diagnosis Date Aortic insufficiency (HRC) 03/04/2014 Ascending aorta dilatation (HRC) 03/04/2014 Cataract Chronic insomnia 04/02/[address] Bony Yanes - takes ativan 0.25 mg at bedtime, higher dose limited by fatigue. Chronic neck and back pain 01/28/2017 Dysthymic disorder (ACG) 04/02/2011 Gastroesophageal reflux disease History of basal cell carcinoma 11/10/2018 Hypertension 08/21/2002 Hypertension (ACG) Insomnia, unspecified 04/02/2011 Lumbosacral radiculopathy at L3 04/22/2016 Lymphocytosis (HRC) 04/22/2016 Mixed hyperlipidemia (HRC) 05/14/2017 Osteopenia 12/21/2014 Routine health maintenance 02/08/2014 Reviewed at physical exam 02/08/2014 Menstrual periods: Post menopausal - on chronic HRT and rec discontinuation Calcium/vit D: Recommended daily DEXA: 2007 normal, consider 2013, DUE ASA: discussed Obesity: There is no height or weight on file to calculate BMI. Exercise: Recommended daily 30 min Smoking cessation: Never smoker Mammogram: Last normal 03/2013, DUE 2014 Pap smear: Last 2004, no f Past Surgical History: Procedure Laterality Date BLADDER REPAIR 1979 Anterior colporrhaphy BUNIONECTOMY LW Problem: Bunionectmy s/p LW Modifier: Right LW Onset: 07/27/07 BX BREAST;PERQ VAC/ROTAT DEV W/GUID Right 09/08/2001 stereo bx, clip placed CATARACT REMOVAL Left 01/15/2016 IOL by ABW CATARACT REMOVAL Right 01/29/2016 IOL by ABW CERVICAL FUSION 06/24/2014 C4-6 EYE SURGERY 2016 INTRAVITREAL INJECTION Right 04/02/2022 Avastin OD INTRAVITREAL INJECTION Right 04/30/2022 Avastin OD INTRAVITREAL INJECTION Right 05/28/2022 Avastin RE INTRAVITREAL INJECTION Right 06/28/2022 Avastin OD INTRAVITREAL INJECTION Right 07/26/2022 Avastin OD INTRAVITREAL INJECTION Right 08/23/2022 Avastin OD INTRAVITREAL INJECTION Right 10/04/2022 Eylea OD #1 INTRAVITREAL INJECTION Right 11/01/2022 Eylea RE INTRAVITREAL INJECTION Right 11/29/2022 Eylea OD INTRAVITREAL INJECTION Right 02/03/2023 Eylea OD INTRAVITREAL INJECTION Right 03/03/2023 Eylea OD LAP CHOLECYSTECTOMY N/A 03/28/2017 Cholelithiasis SPINE SURGERY 2014 2016 2017 TUBAL LIGATION LW Problem: Tubal Ligation Status LW Onset: 1978 VAGINAL HYSTERECTOMY 1979 Vaginal for Uterine prolapse Current Outpatient Medications Medication Instructions acetaminophen (TYLENOL) 1,000 mg, Oral, TID, Maximum acetaminophen dose is 4000 mg in 24 hours amLODIPine (NORVASC) 10 mg, Oral, DAILY atenolol (TENORMIN) 25 mg, Oral, DAILY calcium citrate-vitamin D (CITRACAL+D) 315-5 MG-MCG tablet 1 Tablet, Oral, BID cholecalciferol (VITAMIN D3) 2,000 Units, Oral, DAILY clobetasol (TEMOVATE) 0.05 % cream Topical, DAILY desipramine (NORPRAMIN) 25 MG tablet Take 1 Tablet (25 mg) by mouth every morning. diclofenac (VOLTAREN) 2 g, Transdermal, QID DULoxetine (CYMBALTA) 20 MG capsule TAKE 1 CAPSULE(20MG) BY MOUTH DAILY. TAKE ALONG WITH CURRENT 60MG CAPSULE= 80MG TOTAL DAILY DOSE DULoxetine (CYMBALTA) 60 MG capsule TAKE 1 CAPSULE(60 MG) BY MOUTH DAILY famotidine (PEPCID) 20 mg, Oral, BID PRN LORazepam (ATIVAN) 0.5 MG tablet TAKE 1 TO 2 TABLETS BY MOUTH EVERY NIGHT AT BEDTIME methocarbamol (ROBAXIN) 500 MG tablet TAKE 1 TABLET(500 MG) BY MOUTH AT BEDTIME NEEDED pregabalin (LYRICA) 50 mg, Oral, BID, Start with 1 tablet at bedtime. triamcinolone acetonide (KENALOG) 0.1 % ointment Bid effected area Allergies Allergen Reactions Lisinopril Palpitations Social History Occupational History Occupation: retired Tobacco Use Smoking status: Never Smokeless tobacco: Never Vaping Use Vaping Use: Never used Substance and Sexual Activity Alcohol use: No Drug use: No Sexual activity: Not Currently Partners: Male control/protection: Post-menopausal Comment: No LMP recorded. Patient has had a hysterectomy. Family History Problem Relation Age of Onset High Blood Pressure Mother Emphysema Mother COPD Other (gallbladder cancer) Mother Hypertension Mother High Blood Pressure Father Macular Degeneration Father Emphysema Father COPD Hypertension Father Emphysema Brother Cataract Brother Cataract Brother Cataract Brother Other Maternal Aunt CLL in 90s Other (melanoma) Son Retinal Detachment Negative Family History Glaucoma Negative Family History Amblyopia/Strabismus Negative Family History Blindness Negative Family History Review of Systems: 03/27/2023 ET Amb PreOp Assessment Sx Have you had a heart attack in the last 30 days? No Have you experienced chest tightening or chest pressure with activity? No Do you wake at night with difficulty breathing? No Do you have swelling in your feet or ankles? No Do you get short of breath if lying flat at night? No Do you hear wheezing or whistling when you breathe? No Have you had a cough, runny nose, or cold symptoms in the last 2 weeks? No Have you tested positive for Covid in the last 6 months? No Do you have a long-standing cough? No Do you snore or are you sleepy during the day? No Do you or close relatives have bleeding or clotting problems? No Have you taken Aspirin, Ibuprofen (Advil) or Naproxen (Aleve) in the last 7 days? No Do you or close relatives have a history of a severe or life-threatening reaction to anesthesia? No Estimated Functional Capacity: Can you climb one flight of stairs, or walk up a gradual uphill without stopping? yes, functional capacity is more than or equal to 4 METS Objective BP 130/79 (BP Location: Left Arm, BP Cuff Size: Regular) Pulse 82 Resp 16 Wt 137 lb (62.1 kg) BMI 23.52 kg/m?? Physical Exam: General Appearance: alert, well appearing, and in no apparent distress Eyes: conjunctiva normal ENT: oropharynx clear Neck: no cervical lymphadenopathy Heart: regular rate and rhythm and no murmurs, gallops or rubs Lungs: clear to ausculation and no wheezes, rales or rhonchi Abdomen: soft, nondistended, nontender, no palpable masses, and no organomegaly Extremities: no edema Skin: no rashes on exposed skin Neurologic: normal speech Data: Labs: Today: 03/27/2023. Lab Results Component Value Date WBC 9.0 03/27/2023 RBC 4.17 03/27/2023 Hemoglobin 12.9 03/27/2023 HCT 39.5 03/27/2023 MCV 94.7 03/27/2023 RDW 12.7 03/27/2023 Platelets 432 03/27/2023 Lab Results Component Value Date Creatinine 0.73 03/27/2023 Glucose 87 03/27/2023 Bedside Blood Glucose Test 85 06/24/2014 CO2 25 03/27/2023 Chloride 104 03/27/2023 Potassium 3.7 03/27/2023 Sodium 142 03/27/2023 BUN 14 03/27/2023 Calcium 9.3 03/27/2023 GFR, Estimated >60 03/27/2023 Lab Results Component Value Date INR 0.9 03/27/2023 Protime 12.4 03/27/2023 EC03/24/2023: Sinus rhythm. Normal ECG. When compared with ECG of 26-APR-2021 16:44, No significant change was found Confirmed by Curt Wolfe ([id number]) on 03/24/2023 3:26:04 PM Assessment/Plan Patient is medically optimized for planned procedure(s). ICD-10-CM 1. Preop examination Z01.818 2. Lumbosacral radiculopathy at L3 M54.17 3. Essential hypertension (HRC) I10 Basic Metabolic Panel 4. Mixed hyperlipidemia (HRC) E78.2 5. Nonrheumatic aortic valve insufficiency (HRC) I35.1 6. Dilated aortic root (HRC) I77.810 Complete Blood Count-No Diff 7. History of atrial fibrillation Z86.79 INR/Protime History of atrial fibrillation - Monitor for recurrence. Cardiology visit details as above. Special risks: None Medication recommendations: Patient Instructions Pre-op Instructions: Do not eat after midnight leading up to your surgery. You may have clear fluids such as water or Gatorade up to 4 hours prior to surgery. You can take your medications with a small sip of water unless directed otherwise. Stop taking all supplements, Fish Oil, Aspirin, Ibuprofen, Motrin, Advil and Aleve at least 7 days prior to surgery. You may take Tylenol as directed for pain relief. Follow your individualized medication recommendations as described above. In addition, please stop all riwz-ehg-fmgjvgr medications including aspirin, ibuprofen (Advil, Motrin), naproxen (Aleve, Naprosyn), herbal remedies and supplements one week prior to procedure unless directed otherwise by your care team. You may continue to take acetaminophen (Tylenol) up to the dayof your procedure. Continue all other medications as currently taking. Let your care team know if you have questions. On the day of your procedure, do not wear any hair product including hair sprays and gels and avoidusing body sprays and deodorants/antiperspirants. Bring with you to the site of the procedure: Any oral appliances or CPAP equipment related to sleep apnea Any other health-related equipment or devices you use daily Electronically signed by: Isidoro Leach MD 03/27/2023, 7:44 AM NSED AND CERTIFIED MIDWIFE documented in this encounter Plan of Treatment Upcoming Encounters Date Type Department Care Team Description 04/10/2023 8:30 AM LICENSED AND CERTIFIED MIDWIFE Appointment [place] [address] [facility] [address] [place] [phone] [place] [address] [place] [address] 04/15/2023 10:45 AM LICENSED AND CERTIFIED MIDWIFE Appointment [facility] [address] [facility] [place], [place] [address] Sin Castorena MD [address] [place], [place] [id number] documented as of this encounter Results * Basic Metabolic Panel (03/27/2023 10:51 AM LICENSED AND CERTIFIED MIDWIFE) Sodium 142 136 - 145 mmol/L 03/27/2023 4:45 PM [facility] Potassium 3.7 3.5 - 5.1 mmol/L 03/27/2023 4:45 PM [facility] Chloride 104 98 - 109 mmol/L 03/27/2023 4:45 PM [facility] CO2 25 20 - 29 mmol/L 03/27/2023 4:45 PM [facility] Anion Gap 13 7 - 16 mmol/L 03/27/2023 4:45 PM [facility] Calcium 9.3 8.4 - 10.4 mg/dL 03/27/2023 4:45 PM [facility] BUN 14 7 - 26 mg/dL 03/27/2023 4:45 PM [facility] Creatinine 0.73 0.55 - 1.02 mg/dL 03/27/2023 4:45 PM [facility] Glucose 87 70 - 100 mg/dL 03/27/2023 4:45 PM [facility] Comment:The given reference range is for the fasting state. Non-fasting reference range for glucose is 70 - 180 mg/dL. GFR, Estimated >60 >60 mL/min/1.7 3m2 03/27/2023 4:45 PM [facility] Hours Fasting 0.0 8 - 12 Hours 03/27/2023 4:45 PM [facility] Blood Venipuncture / Unknown 03/27/2023 10:51 AM LICENSED AND CERTIFIED MIDWIFE 03/27/2023 10:51 AM LICENSED AND CERTIFIED MIDWIFE Isidoro Leach MD LAB_1 [facility] [address] [place] [phone], [facility] [phone] * INR/Protime (03/27/2023 10:51 AM LICENSED AND CERTIFIED MIDWIFE) [facility] Protime 12.4 11.8 - 14.6 Seconds 03/27/2023 11:05 AM [facility] INR 0.9 0.9 - 1.1 03/27/2023 11:05 AM [facility] Blood Venipuncture / Unknown 03/27/2023 10:51 AM LICENSED AND CERTIFIED MIDWIFE 03/27/2023 10:51 AM LICENSED AND CERTIFIED MIDWIFE Narrative [facility] - 03/27/2023 11:05 AM LICENSED AND CERTIFIED MIDWIFE Therapeutic range determined by protocol established by anticoagulation provider. Isidoro Leach MD LAB_1 [facility] [address] [place] [address], [facility] [phone] * Complete Blood Count-No Diff (03/27/2023 10:51 AM LICENSED AND CERTIFIED MIDWIFE) [facility] WBC 9.0 3.5 - 10.5 x10(9)/L 03/27/2023 10:55 AM [facility] RBC 4.17 3.90 - 5.03 x10(12)/L 03/27/2023 10:55 AM [facility] Hemoglobin 12.9 12.0 - 15.5 g/dL 03/27/2023 10:55 AM [facility] HCT 39.5 34.9 - 44.5 % 03/27/2023 10:55 AM [facility] MCV 94.7 80.0 - 100.0 fL 03/27/2023 10:55 AM [facility] MCH 30.9 27.6 - 33.3 pg 03/27/2023 10:55 AM [facility] MCHC 32.7 31.5 - 35.2 g/dL 03/27/2023 10:55 AM [facility] RDW 12.7 11.9 - 15.5 % 03/27/2023 10:55 AM [facility] Platelets 432 150 - 450 x10(9)/L 03/27/2023 10:55 AM LICENSED AND CERTIFIED MIDWIFE [facility] Blood Venipuncture / Unknown 03/27/2023 10:51 AM LICENSED AND CERTIFIED MIDWIFE 03/27/2023 10:51 AM LICENSED AND CERTIFIED MIDWIFE Isidoro Leach MD LAB_1 [facility] [address] [place] [address], [facility] [phone] documented in this encounter Visit Diagnoses Diagnosis Preop examination- Primary Preoperative examination, unspecified Lumbosacral radiculopathy at L3 Thoracic or lumbosacral neuritis or radiculitis, unspecified Essential hypertension (HRC) Unspecified essential hypertension Mixed hyperlipidemia (HRC) Mixed hyperlipidemia Nonrheumatic aortic valve insufficiency (HRC) Aortic valve disorders Dilated aortic root (HRC) Aortic ectasia, unspecified site History of atrial fibrillation Personal history of other diseases of circulatory system documented in this encounter Additional Health Concerns Infection Onset Date Last Indicated Resolved Time 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 (+) 11/07/2015 11/07/2015 documented as of this encounter Care Teams Radio Producer Relationship Specialty Start [place] [address] [place] [address] PCP - General Internal Medicine 11/09/15 documented as of this encounter
--- OUTSIDE RECORDS SUMMARY | 2023-04-05 09:22 | XMS_ITS | Encounter Summary ---
Author Name Unknown Organization [facility] Address [address] [place] [address] Care Team Providers Care Phlebotomy Supervisor Name Role Phone Carolynn Alvarado MD Primary Care Provider [phone] Reason for Referral * Consult/Transfer Care (Routine) - New Request Specialty Diagnoses / Procedures Referred By Cecille concepcion Referred To Contact Diagnoses Stress incontinence of urine Margareth Edwards APRN, CNM [address] [place] [address] Referral ID Status Reason Start Date Expiration Date V isits Requested Visits Authorized [id number] New Request 02/17/2023 05/18/2024 1 1 Scheduling Instructions Your clinician has recommended an appointment with [facility]. You can quickly make your appointment online at [employer]/schedule. You can also call [phone] for help scheduling your appointment. We suggest you call your health insurance company about your coverage and benefits for this appointment. Question Answer Appointment Urgency? Non-Urgent Reason for visit? urinary incontinence, cystocele, hx bladder repair in 1979 ING AND STAPLING MACHINE OPERATOR Reason for Visit * Reason Comments CONSULT Encounter Details Date Type Department Care Team Description 02/17/2023 11:15 AM FILLING AND STAPLING MACHINE OPERATOR Office Visit [place] [address] Obstetrics/Gynecolog y [address] [place] [address] Margareth Edwards APRN, ANGELA [address] [place] [address] Stress incontinence of urine (Primary Dx) Social History Tobacco Use Types [...] Sign Reading Time Taken Comments Blood Pressure 130/66 02/17/2023 11:24 AM FILLING AND STAPLING MACHINE OPERATOR Pulse 68 02/17/2023 11:24 AM FILLING AND STAPLING MACHINE OPERATOR Temperature - - Respiratory Rate - - Oxygen Saturation - - Inhaled Oxygen Concentration - - Weight 61.8 kg (136 lb 3.2 oz) 02/17/2023 11:24 AM FILLING AND STAPLING MACHINE OPERATOR Height - - Body Mass Index 23.38 10/07/2022 9:06 AM CDT documented in this encounter Progress Notes * Margareth Edwards APRN, ANGELA - 02/17/2023 11:15 AM CST POWER LINEMAN Office Visit Subjective: Michelle Franz is a 77 y.o. female who presents to clinic today to discuss bladder issues. She is having stress incontinence with sneezing and coughing. She has a bladder repair surgery at age 32 and has been doing well until recently. She has had some post-void burning and discomfort as well. Having discomfort and pressure with urination. Denies flank pain, urgency, frequency, fever. Hx pelvic fracture. Wondering if there are options for vaginal dryness. Babies were 8#, 8-10# and 8-9oz. Past Medical History: Diagnosis Date Aortic insufficiency [...] OD INTRAVITREAL INJECTION Right 02/03/2023 Eylea OD LAP CHOLECYSTECTOMY N/A 03/28/2017 Cholelithiasis SPINE SURGERY 2014 2016 2017 TUBAL LIGATION LW Problem: Tubal Ligation Status LW Onset: 1978 VAGINAL HYSTERECTOMY 1979 Vaginal for Uterine prolapse Outpatient Medications Prior to Visit Medication Sig Dispense Refill acetaminophen (TYLENOL) 500 MG tablet Take 2 Tablets (1,000 mg) by mouth three times a day. Maximumacetaminophen dose is 4000 mg in 24 hours amLODIPine (NORVASC) 10 MG tablet Take 1 Tablet (10 mg) by mouth daily. 90 Tablet 3 atenolol (TENORMIN) 25 MG tablet Take 1 Tablet (25 mg) by mouth daily. 90 Tablet 3 calcium citrate-vitamin D (CITRACAL+D) 315-5 MG-MCG tablet Take 1 Tablet by mouth two times a day. cholecalciferol (VITAMIN D3) 50 MCG (2000 UT) capsule Take 1 Capsule (2,000 Units) by mouth daily. (Patient not taking: Reported on 10/07/2022) 100 Capsule 3 clobetasol (TEMOVATE) 0.05 % cream Apply topically daily. desipramine (NORPRAMIN) 25 MG tablet Take 1 Tablet (25 mg) by mouth every morning. 90 Tablet 0 diclofenac (VOLTAREN) 1 % gel Apply 2 g to skin 4 times a day. 1 Each 5 DULoxetine (CYMBALTA) 20 MG capsule TAKE 1 CAPSULE(20MG) BY MOUTH DAILY. TAKE ALONG WITH CURRENT 60MG CAPSULE= 80MG TOTAL DAILY DOSE 90 Capsule 0 DULoxetine (CYMBALTA) 60 MG capsule TAKE 1 CAPSULE(60 MG) BY MOUTH DAILY 90 Capsule 0 famotidine (PEPCID) 20 MG tablet Take 1 Tablet (20 mg) by mouth two times daily as needed for Heartburn. 180 Tablet 3 LORazepam (ATIVAN) 0.5 MG tablet TAKE 1 TO 2 TABLETS BY MOUTH EVERY NIGHT AT BEDTIME 60 Tablet 1 methocarbamol (ROBAXIN) 500 MG tablet TAKE 1 TABLET(500 MG) BY MOUTH AT BEDTIME NEEDED 30 Tablet5 pregabalin (LYRICA) 25 MG capsule Take 2 Capsules (50 mg) by mouth two times a day. Start with 1 tablet at bedtime. 360 Capsule 3 triamcinolone acetonide (KENALOG) 0.1 % ointment Bid effected area 30 g 11 fluticasone propionate (FLONASE) 50 MCG/ACT nasal solution PLACE 2 SPRAYS INTO BOTH NOSTRILS DAILY.DECREASE TO 1 SPRAY PER NOSTRIL DAILY IF SYMPTOMS CONTROLLED 48 g 3 Facility-Administered Medications Prior to Visit Medication Dose Route Frequency Provider Last Rate Last Admin sodium chloride 0.9% injection 10-60 mL 10-60 mL Intravenous PRN Yessy Martinez PA-C Family History Problem Relation Age of Onset [...] Negative Family History Blindness Negative Family History Objective: . Vitals: 02/17/23 1124 BP: 130/66 Pulse: 68 Psych: normal mood and appropriate affect, NAD Neuro: alert and oriented Abdomen: Soft, non-tender, without hepatosplenomegaly, masses, or hernias. Pelvic: Normal external genitalia and urethra; atrophy consistent with post- menopausal tissues. [place], moist vaginal and cervical mucosa, without lesions. On bimanual exam, uterus is mobile, normal size, shape & consistency, with no uterine or adenexal masses appreciated. There is a notable cystocele with valsalva. Skin: No rashes, lesions, or ulcers. Warm, dry, intact. Upper and Lower extremities: FROM, normal gait without edema, lesions, or deformity. Assessment: Urinary incontinence Vaginal dryness Plan: Michelle declines PT. She would like referral to Urogyn, which was sent. Advised vaginal moisturizer (Good Clean Love) for vaginal dryness. UA. Billing based on: Complexity ING AND STAPLING MACHINE OPERATOR documented in this encounter Plan of Treatment Upcoming Encounters Date Type Department Care Team Description 04/10/2023 8:30 AM FILLING AND STAPLING MACHINE OPERATOR Appointment [place] [address] Family Medicine [address] [place] [address] [place] [address] [place] [address] 04/15/2023 10:45 AM FILLING AND STAPLING MACHINE OPERATOR Appointment [facility] [address] [facility]. [place], [place] [id number] Sin Castorena MD [address] [place] [address] Scheduled Referrals Name Type Priority Associated Diagnoses Orde r Schedule Urogynecology Consult-Adult Referral Routine Stress incontinence of urine Ordered: 02/17/2023 documented as of this encounter Results * (ABNORMAL) Urinalysis Routine, Micro/Culture if Pos: Clean Catch (02/17/2023 11:57 AM FILLING AND STAPLING MACHINE OPERATOR) Urine Culture Comment Urinalysis results do not meet criteria for urine culture reflex. 02/17/2023 11:59 AM [facility] Urine Color Yellow 02/17/2023 11:59 AM [facility] Urine Clarity Clear Clear 02/17/2023 11:59 AM [facility] Specific [place], Urine 1.020 1.005 - 1.030 02/17/2023 11:59 AM [facility] PH Urine 5.5 5.0 - 8.0 02/17/2023 11:59 AM [facility] Protein, Urine Qual (mg/dL) Trace Neg/Trace 02/17/2023 11:59 AM [facility] Glucose Urine Qual (mg/dL) Negative Negative 02/17/2023 11:59 AM [facility] Ketones, Urine (mg/dL) Trace(A) Negative 02/17/2023 11:59 AM [facility] Urobilinogen, Urine (EU/dL) 0.2 <2.0 02/17/2023 11:59 AM [facility] Bilirubin Urine Negative Negative 02/17/2023 11:59 AM [facility] Blood, Urine Negative Neg/Trace 02/17/2023 11:59 AM [facility] Nitrite Urine Negative Negative 02/17/2023 11:59 AM [facility] Leukocyte Est. Negative Negative 02/17/2023 11:59 AM [facility] Urine Source Clean Catch 02/17/2023 11:59 AM [facility] Urine URINE SPECIMEN COLLECTION, CLEAN CATCH / Unknown Non-blood Collection / Unknown 02/17/2023 11:57 AM FILLING AND STAPLING MACHINE OPERATOR 02/17/2023 11:57 AM FILLING AND STAPLING MACHINE OPERATOR Margareth Edwards APRN, CNM LAB_1 [facility] [address] [place] [address] [phone] documented in this encounter Visit Diagnoses Diagnosis Stress incontinence of urine- Primary documented in this encounter Additional Health Concerns Infection Onset Date Last Indicated Resolved Time 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
--- OUTSIDE RECORDS SUMMARY | 2023-04-05 09:22 | XMS_ITS | Encounter Summary ---
Author Name Unknown Organization [facility] Address [address], [place] [address] Care Team Providers Care Contour Grinder Name Role Phone Carolynn Alvarado MD Primary Care Provider [phone] Reason for Visit * Reason Comments Injection Encounter Details Date Type Department Care Team Description 02/03/2023 10:30 AM GUEST SERVICE AGENT Office Visit [facility] [address] [facility]. 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 You received an intravitreal injection today to help control the swelling of the macula (the centerpart of the vision). Post-Injection Instructions : The eye may be watery and feel scratchy and irritated (like something is in your eye). This should resolve and the vision should be back to what it was before the treatment within 24 hours. It may be helpful to keep the eye closed or use [id number] artificial tears for comfort. You may see a bloody red spot on the white part of your eye at the injection site. This is normal and may spread around the eye. You may see floaters. (This is the medication.) If you see a shower of floaters, flashes of light or are missing a part of your side vision, please contact us immediately. No swimming or rubbing the eye for 3 days. After the day of the injection, you must call us immediately if you develop any of the following symptoms: Severe, worsening eye pain Decreased vision Redness involving the entire white part of your eye Worsening sensitivity to light Eye discharge (other than tears/bloody tears) Call [phone] with any problems. T SERVICE AGENT documented in this encounter Progress Notes * Sin Castorena MD - 02/03/2023 10:30 AM CST The medications, allergies, and past medical and social histories in the medical record were reviewed. Review of Systems: Pertinent items are noted in patient history; the remainder of the complete review of systems is negative. General Medical Observation: Alert, appears well Ocular Surgeries and History: - PCIOL OU - LORRAINE OD TAE start 08/23/22 - LORRAINE OD recurrent at 6 weeks - LATRICIA OD switch 10/04/22 - start TAE 12/27/22 Retinal Imaging (All images were reviewed by Sin Castorena MD): OCT of the right eye - central macular CNV/SHRM, (+) lucency v. 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 Discussed need for long-term mgmt and PRN v. T&E protocols - Risks/benefits of injections vs obs discussed at length, including infection, loss of vision, RT/RD, pain, bleeding; discussed that even with resolution of fluid, some patients may not see an improvement in vision, although the goal is also to prevent further worsening. - Discussed that in light of wet AMD, there is still underlying dry AMD that will slowly progress over time - Pt voiced understanding and would like to proceed w/ injections - 10/04/22 - Failure to resolve with LORRAINE. 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 Callback precautions discussed Follow up in 4 wks, LATRICIA OD #6, injxn only. OCT on arrival Last DFE: 12/2022 Consent verified for LATRICIA OD; signed 10/04/22 KV, COA - acting as scribe for Sin Castorena MD All notes completed by prior to signing Further details of the management plan can be found in the Patient Instructions section which wasprinted and given to the patient. Attending Physician Attestation: Complete documentation of historical and exam elements from today's encounter can be found in the full encounter summary report (not reduplicated in this progress note). I personally obtained the chief complaint(s) and history of present illness. I confirmed and edited as necessary the review of systems, past medical/surgical history, family history, social history, and examination findings as documented by others; and I examined the patient myself. I personallyreviewed the relevant tests, images, and reports as documented above. I formulated and edited as necessary the assessment and plan and discussed the findings and management plan with the patient and family- Sin Castorena MD T SERVICE AGENT documented in this encounter Procedure Notes * Sin Castorena MD - 02/03/2023 10:30 AM CST Intravitreal Injection Operative Report Eye: Right Surgeon: Sin Castorena MD Medicaton: Eylea 0.05 mL (2 mg) Lot number: [id number], Exp 05/14/24 Anesthesia: tetracaine, lidocaine gel 5% povidone iodine drop after tetracaine. Lid speculum used. Injection site irrigated with 5% povidone iodine. 32-gauge needle used to inject 0.05 ml of medication 3.5 mm (pseudophakic)/4mm (phakic) posterior to the limbus inferotemporally. No complications. Post-injection VA at least count finger. Eye irrigated with sterile saline. Post-injection Instructions: The eye may be patched for up to 24 hours at the patient's discretion. No swimming, contact lens orrubbing the eye for 3 days. Use artificial tears as needed for discomfort. She was instructed to call immediately with any problems: pain, decreased vision, redness of the eye, floaters/flashes, sensitivity to light, ocular discharge, or the development of a peripheral shadow in the vision. T SERVICE AGENT documented in this encounter Plan of Treatment Upcoming Encounters Date Type Department Care Team Description 04/10/2023 8:30 AM GUEST SERVICE AGENT Appointment [address] [place] [address] [place] [address] [place] [address] 04/15/2023 10:45 AM GUEST SERVICE AGENT Appointment [place] [address] [place] [address]. 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)- Primary Epiretinal membrane, left eye Macular puckering of retina documented in this encounter Administered Medications Inactive Administered Medications - up to 3 most recent administrations Medication Order MAR Action Action Date Dose Rate Site aflibercept (EYLEA) injection 2 mg 2 mg, Intravitreal, ONCE, On Fri02/03/23 at 1200, For 1 dose, HIGH ALERT medication HAZARDOUS DRUG Administration: Double glove, chemo gown; if no closed-system drug-transfer device (CSTD), include eye protection Must be given by trained nurse (antineoplastic, chemotherapeutic, or cytotoxic medication) Given 02/03/2023 11:31 AM GUEST SERVICE AGENT 2 mg Righ t Eye documented in this encounter Additional Health Concerns Infection Onset Date Last Indicated Resolved Time 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
--- OUTSIDE RECORDS SUMMARY | 2023-04-05 09:22 | XMS_ITS | Encounter Summary ---
Author Name Unknown Organization [facility] Address [address] [place] [address] Care Team Providers Care Building Trades Instructor Name Role Phone Carolynn Alvarado MD Primary Care Provider Reason for Visit * Reason Comments Spine Lumbar * Therapies (Routine) - New Request Specialty Diagnoses / Procedures Referred By Cecille concepcion Referred To Contact Physical Therapy Diagnoses Low back pain (HRC) Radiculopathy, lumbar region Back Pain Syndrome Radiculopathy Thor/Lumb Neuritis Referred by: Isai Foss [facility] , Clinician, Not Found, [place] [address] Br Physical [facility] [address] [place] [address] Referral ID Status Reason Start Date Expiration Date V isits Requested Visits Authorized [id number] New Request 01/13/2023 04/13/2024 1 1 Encounter Details Date Type Department Care Team Description 01/14/2023 1:30 PM CDT Therapy [facility] [address] [place] [address] Rona Mcgrath, PT [address] [place] [address] Chronic bilateral low back pain, [...] Progress Notes * Rona Mcgrath, PT - 01/14/2023 1:30 PM CDT [facility] Physical Therapy - Lumbar Spine Evaluation/Plan of Care Initial Certification Period: 01/14/2023 to 04/14/23 Referring Provider: Isai Foss MD [facility] [place] FAX [phone] Visit Diagnosis: 1. Chronic bilateral low back pain, unspecified whether sciatica present 2. Lumbar radiculopathy, right Precautions: PMH chronic neck pain, thoracic aortic aneurysm, lymphocytosis, HTN, insomnia,skin cancer, aortic insufficiency, per patient osteoporosis and scoliosis, PMH surgery 3 lumbar procedures, microdiskectomy, 3 cervical fusions, prior pelvic fractures Orders: Evaluate & treat Onset/Referral Date: onset age 22, flare up of pain over past year - last back surgery 04/2022, referral 01/02/23 SUBJECTIVE Reason for Visit: Michelle is a very pleasant 77 y/o woman here in PT for her lower back. She informs me she was recommended to see PT prior to having a planned lumbar fusion procedure. She has had backpain for years and has had 3 back surgeries and 4 injections but unfortunately continues with pain.She also states she had no PT following any of her back procedures in the past. She is motivated tolearn what she can do to help her back muscles prior to surgery. Patient Therapy Goals:help my back pain to stand and walk easier Past Medical History: Patient Active Problem List Diagnosis Essential hypertension (HRC) Prolapse of vaginal wall Symptomatic menopausal or female climacteric states Atrophy of vulva Mild early onset dysthymic disorder, in full remission, with melancholic features, with pure dysthymic syndrome (HRC) Chronic insomnia Routine health maintenance Aortic insufficiency (HRC) Low bone mass Psychophysiological insomnia Lumbosacral radiculopathy at L3 Lymphocytosis (HRC) Thoracic aortic aneurysm without rupture (HRC) Chronic neck and back pain Mixed hyperlipidemia (HRC) History of dysplastic nevus Cervical stenosis of spinal canal Hypertriglyceridemia (HRC) H/O nonmelanoma skin cancer Primary osteoarthritis of right hip Vitamin D deficiency (HRC) Recently Experienced (Red Flags): None Recently Experienced (Yellow Flags): None Previous Treatment: surgery, injections Benefited from previous treatment: no Pain details: Current pain intensity level: 8/10 Pain location: R > L lumbar, R glut and intermittent into R posterior LE to ankle Other symptoms: intermittent numbness/tingling in R leg and she feels weak going up steps Sleep interruptions: decreased by nearly 50% Time of day worst pain: did not discuss today Pain quality: Aching and Stabbing Aggravating factors:stand > 5 min, walking more than a few blocks, sitting more than 1 hour, cannot lift, very hard to care for her home or cook, weakness to go up steps with her R leg , hard to grocery shop Relieving factors: Changing positions and Restriction of activity Work/Leisure/Sport: 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 [employer], enjoys walking her dog, time with family, reading, knitting, cross stitch Patient History: Moderate Complexity: 1-2 personal factors and/or comorbidities that impact plan of care: see above OBJECTIVE Observation: Standing posture with forward head, lumbar lordosis decreased, and scoliosis Healed scars from multiple spine surgeries Transitions up/down from chair and on and off mat table a bit slower with use of UE assist Screening: Reports at times balance decreased Seated TS AROM ROT 50% stiff Seated cross legs hip ROM 75% Supine AAROM hips all 90%-WNL on her R she notes hip and some leg pain in most directions Sidelying hip abduction 4/5 bilateral Vital Signs seated L arm auto cuff 134/79 mm Hg, HR 106 bpm, no shortness of breath Sit to stand chair 30 sec 6 reps norm for her age is 13 reps LS AROM: Flexion 75% pain Extension 10% pain Sidebend left 25% pain Sidebend right 25% pain Strength: Core Strength: Decreased diaphragm activation Decreased abdominal activation with pelvic tilt Unable to bridge pain Supine trunk extension isometric soreness in back Supine glut set soreness in back Sidelying trunk isometric decreased bilateral Neurological: Seated myotomes 4/5 bilateral Reports intermittent numbness/tingling to R groin, with standing feels like hot water running down her R leg and tingling Joint Mobility: Not tested Palpation/Tenderness - stiffness R > L lumbar paraspinals, soreness R lower and central lumbar, R SI base Special Tests: Slump Test Left: Negative Slump Test Right: Negative SLR Left: Positive for hamstring tightness at 70 degrees SLR Right: Positive for reproduction of symptoms at 50 degrees Mobility/Transfer - Guarded Gait Exam - non antalgic, slower velocity PHQ-2 Score: 0 Score < 3 - No further discussion required Patient verbalizes safety. PT - Spine, Lumbar/SI Modified Oswestry Low Back Pain Questionnaire (0-100%, 0% being best): 54 Clinical Examination: Moderate Complexity: Addressed 3 elements from body structures and functions (see above), and/or functional limitations as noted below. Today's Intervention/Charges: Physical Therapy Evaluation was completed and the patient was educated on the condition, planned therapy intervention and expectations from treatment. Therapeutic exercise x 15 minutes: Reviewed recommended HEP to start and issued handout up to 10 reps each Access Code: [email or web address] URL: [email or web address] - Supine Posterior Pelvic Tilt + exhale - 1-2 x daily - 10 reps - Supine Scapular Retraction - 1-2 x daily - 10 reps - Hooklying Position Glut SEts - 1-2 x daily - 10 reps - Sidelying Hip Abduction + trunk SB isometric - 1-2 x daily - 10 reps -sit to stand Bed 10 reps 1-2 x day -SLS in corner face out, 10 sec 3 reps 1-2 x day Self care/home management x 10 minutes: Break up sitting every hour Use of night lights Watch pet with walking - she has tripped and broke her arm in past Timed Code Treatment Minutes: 25 Total Treatment Minutes: 45 ASSESSMENT Therapist Impression/Summary: Michelle presents to PT today with unfortunately ongoing chronic LB and R LE pain that is significantly impairing her with ADLs, IADLs and sleeping. She objectively demonstrates with LE and core weakness, decreased trunk AROM and palpable tension and pain. She is motivated to work with PT and is planning on spine surgery in near future. PT Clinical Presentation: Moderate Complexity: Evolving Clinical Presentation with changing clinical characteristics Clinical Decision Making: Moderate Complexity Recommendations/Equipment: No additional recommendations at this time, per patient lumbar fusion planned for near future - follow per neurosurgeon recommendation Significant Impairments: Pain, Muscle weakness, Muscular imbalances, ROM Limitation, Postural restrictions Functional Limitations: difficulty sleeping, difficulty dressing, difficulty with household tasks, difficulty with gait, and difficulty with stairs Goals/Functional Outcomes: HEP/Independent Management: Demonstrate independence with HEP and self- management following each treatment session ADL's: Stand for at least 20-30 minutes with mild or without increased symptoms in 4-6 weeks. Ambulation: Ambulate for unlimited distance to walk her dog with mild or without increased symptomsin 4-6 weeks. Outcome: improve oswestry by at least 12% in 4-6 weeks. Barriers to Goal Achievement or Learning: none Prognosis: Good PLAN Planned Intervention/Education: ADL/Self Management, Education, Manual Therapy, Therapeutic Activities, Therapeutic Exercise Frequency: 1 x week or every few weeks Duration: 30 - 60 days - POC written 90 days in event patient misses PT due to unplanned circumstances Discharge Plan: Patient will be discharged from therapy when goals are achieved or patient plateausin progress. Informed Consent: Patient and/or family in agreement with the care plan. Plan for Next Treatment: further assess standing alignment and walking mechanics, progress HEP as able to core and spine stabilization, PRN education vs manual therapy. The plan of care has been sent to the out of network referring clinician for signature to certify medical necessity for the plan above. documented in this encounter Plan of Treatment Upcoming Encounters Date Type Department Care Team Description 04/10/2023 8:30 AM MANAGER TRANSPORT Appointment [place] [address] [facility] [address] [place] [phone] [place] [address] [place] [address] 04/15/2023 10:45 AM MANAGER TRANSPORT Appointment [facility] [address] [place] [address] [address] [facility] 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
--- OUTSIDE RECORDS SUMMARY | 2023-04-05 09:22 | XMS_ITS | Encounter Summary ---
Author Name Unknown Organization [facility] Address [address] [place] [address] Care Team Providers Care Automat Car Attendant Name Role Phone Carolynn Alvarado MD Primary Care Provider [phone] Reason for Visit * Reason Comments Spine Lumbar Encounter Details Date Type Department Care Team Description 01/20/2023 11:15 AM CABLE ENGINEER Therapy [facility] [address] [address] Rona Mcgrath, PT [address] [place] [address] Chronic bilateral low back pain, unspecified whether sciatica present (Primary Dx) Social History Tobacco Use Types [...] Progress Notes * Rona Mcgrath, PT - 01/20/2023 11:15 AM CST Physical Therapy Progress Note Visit Number: 2 Initial Certification Period: 01/14 to 04/14/23 Referring Provider: Isai Foss [facility] Visit Diagnosis: 1. Chronic bilateral low back pain, unspecified whether sciatica present Precautions: PMH chronic neck pain, thoracic aortic [...] her HEP. She can feel her muscles working but no reported increase in back pain while doing them. Still limited quite a bit with standing and walking due to back pain. OBJECTIVE Current Objective Findings: Balance: SLS today 8-10 seconds SLS each side today Functional Gait Assessment - Endurance: 6 min walk Vital signs prior L auto cuff BP 140/72, HR 64, O2 99%, following 6 min walking 158/82, HR 75, O2 97% Walked no device total of 840 feet, reported increase in LBP after walking ~ 1 min 40 sec and end of 6 min of walking notes 7/10 LBP Non antalgic gait, intermittent narrow and ER of R > L LE Standing Posture: Use of very good supportive tennis shoe, L shoulder elevated, L iliac crest lower vs R side Treatment/Education Today: Therapeutic Exercise: 25 minutes Objective above and Reviewed all HEP below at least up to 5-10 reps Neuromuscular Re-Education: 15 minutes Objective measures above and Reviewed home balance exercise - SLS face out of corner x 3 reps Timed Code Treatment Minutes: 40 Total Treatment Minutes: 40 Current Home Exercise Program List: Access Code: [email or web address] URL: [email or web address] - Supine Posterior Pelvic Tilt + exhale [...] 10 sec 3 reps 1-2 x day ASSESSMENT/PROGRESS TOWARD GOALS: Pain level has not improved, she is very motivated with her HEP and reports this is still working her muscles and not increasing pain Functional Goals/Outcomes: HEP/Independent Management: Demonstrate independence with HEP and self- management following each treatment session ADL's: Stand for at least 20-30 minutes with mild or without increased symptoms in 4-6 weeks. Ambulation: Ambulate for unlimited distance to walk her dog with mild or without increased symptomsin 4-6 weeks. Outcome: improve oswestry by at least 12% in 4-6 weeks. PLAN: Recheck in about 1 week, progress core stabilization, walking for time and review of education withtransitions and home chores. E ENGINEER documented in this encounter Plan of Treatment Upcoming Encounters Date Type Department Care Team Description 04/10/2023 8:30 AM CABLE ENGINEER Appointment [place] [address] Family Medicine [id number] [place] [phone] [place] [address] [place] [address] 04/15/2023 10:45 AM CABLE ENGINEER Appointment [address] [place], [place] [address] Sin Castorena MD [address] [place] [phone] documented as of this encounter Visit Diagnoses Diagnosis Chronic bilateral low back pain, unspecified whether sciatica present- Primary documented in this encounter Additional Health Concerns Infection Onset Date Last Indicated Resolved Time 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 (+) 11/07/2015 11/07/2015 documented as of this encounter Care Teams Automat Car Attendant Relationship Specialty Start [place] [address] [place] [address] [address] PCP - General Internal Medicine 11/09/15 documented as of this encounter
--- OUTSIDE RECORDS SUMMARY | 2023-04-05 09:22 | XMS_ITS | Clinical Summary ---
Author Name Unknown Organization [facility] Address [address] [place] [address] Care Team Providers Care Bridge Opener Name Role Phone Carolynn Alvarado MD Primary Care Provider [phone] Source Comments You are receiving this document as you are listed as the primary care provider,follow-up provider, or the patient has been referred to you for consultation.This is in compliance with the Medicare and[facility] E[facility] Incentive Program,which states Providers who transition their patient to another setting of careor provider of care or refers their patient to another provider of care shouldprovide summary care record for each transition of care or referral. [employer] Allergies Active Allergy Reactions Criticality Noted Date Comments Lisinopril Palpitations 01/08/2010 Medications Medication Sig Dispensed Refills Start Date End Date Status acetaminophen (TYLENOL) 500 MG tablet Take 2 Tablets (1,000 mg) by mouth three times a day. Maximum acetaminophen dose is 4000 mg in 24 hours 0 Active triamcinolone acetonide (KENALOG) 0.1 % ointmentIndicatio ns:Rash and nonspecific skin eruption Bid effected area 30 g 11 2 Active diclofenac (VOLTAREN) 1 % gelIndications:Ch ronic neck pain Apply 2 g to skin 4 times a day. 1 Each 5 2 Active amLODIPine (NORVASC) 10 MG tabletIndications :Essential hypertension (HRC) Take 1 Tablet (10 mg) by mouth daily. 90 Tablet 3 2 Active atenolol (TENORMIN) 25 MG tabletIndications :Essential hypertension (HRC) Take 1 Tablet (25 mg) by mouth daily. 90 Tablet 3 2 Active famotidine (PEPCID) 20 MG tabletIndications :Gastroesophageal reflux disease without esophagitis Take 1 Tablet (20 mg) by mouth two times daily as needed for Heartburn. 180 Tablet 3 2 Active calcium citrate-vitamin D (CITRACAL+D) 315-5 MG-MCG tabletIndications :Age-related osteoporosis without current pathological fracture (HRC) Take 1 Tablet by mouth two times a day. 0 2 Active cholecalciferol (VITAMIN D3) 50 MCG (2000 UT) capsuleIndication s:Age-related osteoporosis without current pathological fracture (HRC) Take 1 Capsule (2,000 Units) by mouth daily. 100 Capsule 3 2 Active clobetasol (TEMOVATE) 0.05 % cream Apply topically daily. 0 3 Active pregabalin (LYRICA) 25 MG capsule Take 2 Capsules (50 mg) by mouth two times a day. Start with 1 tablet at bedtime. 360 Capsule 3 3 08/19/19 24 Active methocarbamol (ROBAXIN) 500 MG tablet TAKE 1 TABLET(500 MG) BY MOUTH AT BEDTIME NEEDED 30 Tablet 5 3 Active DULoxetine (CYMBALTA) 60 MG capsuleIndication s:Depression, major, recurrent, in remission (HRC) TAKE 1 CAPSULE(60 MG) BY MOUTH DAILY 90 Capsule 0 3 Active DULoxetine (CYMBALTA) 20 MG capsule TAKE 1 CAPSULE(20MG) BY MOUTH DAILY. TAKE ALONG WITH CURRENT 60MG CAPSULE= 80MG TOTAL DAILY DOSE 90 Capsule 0 3 Active desipramine (NORPRAMIN) 25 MG tablet Take 1 Tablet (25 mg) by mouth every morning. 90 Tablet 0 3 Active LORazepam (ATIVAN) 0.5 MG tabletIndications :Psychophysiologi reji insomnia TAKE 1 TO 2 TABLETS BY MOUTH EVERY NIGHT AT BEDTIME 60 Tablet 0 4 Active LORazepam (ATIVAN) 0.5 MG tabletIndications :Psychophysiologi reji insomnia TAKE 1 TO 2 TABLETS BY MOUTH EVERY NIGHT AT BEDTIME 60 Tablet 1 3 04/03/19 24 Discontinued ELIQUIS 5 MG tablet Take 1 Tablet (5 mg) by mouth two times a day. 0 3 03/27/19 24 Discontinued Active Problems Problem Noted Date Diagnosed Date Vitamin D deficiency 06/13/2022 Primary osteoarthritis of right hip 08/04/2020 H/O nonmelanoma skin cancer 11/10/2018 Overview: BCC: -left chin, s/p Mohs 10/2017 Hypertriglyceridemia 03/10/2018 Cervical stenosis of spinal canal 09/10/2017 Overview: Added automatically from request for surgery [id number] History of dysplastic nevus 09/05/2017 Overview: rt posterior base of neck- Moderate to severe dysplasia 2005 Mixed hyperlipidemia 05/14/2017 Overview: 05/14/2017 10 year 9.03% (using the ACC/AHA ASCVD risk score). 05/01/2020 9% - DECLINES STATIN - LDL too low, trial atorvastatin 2017 Chronic neck and back pain 01/28/2017 Overview: S/p cervical fusion C3-5. Follows with neurosurgery. S/p lumbar discectomy Medical history and workup: ?? Medications the patient has tried: Percocet: tabs per day = 1-2 Q4H PRN (DC'd 02/2018) and Gabapentin 300 mg QD PRN and Lorazepam 0.5-1 mg QD ?? Rehabilitation (PT/OT/Medx)???Yes; date 2012- (PT) ?? Behavioral health? Yes; date 2011- at [facility] ?? Other treatment modalities tried: Injection; date 03/31, 11/2018 (bilateral thumbs) and 03/2017, 02/2017 (TPI). S/P C3-4 Cervical diskectomy and decompression 11/2017. S/P Lumbar microdiscectomy 05/2016. S/P C3-5 Cervical fusion 2014. ?? Imaging (MRI within the past 2 years for cervical thoracic, 5 years for lumbar): CT Cervical 10/2018. Lumbar 11/2017. Cervical MRI 07/2017. Thoracic 01/2017. ?? Any red flags present? None Lumbosacral radiculopathy at L3 04/22/2016 Overview: MRI [facility] 04/22/2016 1) right paracentral disc bulge at L2-L3 with narrowing of the right foramen and spinal canal. 2) L3-L4 there is a central disc bulge with a questionable disc protrusion extending to the right lateral aspect of the L3 vertebral body/right lateral recess with right-sided foraminal narrowing at that level Lymphocytosis 04/22/2016 Overview: 04/22/[address] Norwood - the level of the patient has an absolute lymphocytosis. ??If persistent this could be early chronic lymphocytic leukemia. ??Flow cytometry may be helpful to further evaluate if it the count does not normalize Psychophysiological insomnia 10/12/2015 Low bone mass 12/21/2014 Overview: Wrist Fx 2018 with fall, endo plans prolia after neck surgery 2020 DEXA 12/22/2014 mild low, DUE [id number], Ca and D 05/24/2019 worsening, -2, FRAX 24.6% and 8.1% - asked to return to icuss tx BP Aortic insufficiency 03/04/2014 Overview: Moderate aortic insufficiency per echocardiogram in 2015. 03/03/2018 stable with mild dilation aorta 4.2 diameter Dilated aortic root 03/04/2014 Overview: 11/2015 mild dilation, Dr Wolfe recommended repeat in 3 years. Routine health maintenance 02/08/2014 Overview: Reviewed at [facility] exam 04/20/06/13/20222020 Menstrual periods: Post menopausal - 7614-8811 d/c'd HRT Calcium/vit D: Recommended daily DEXA: [...] negative FIT, due annually, 07/09/2022 NEG FIT Mild early onset dysthymic d isorder, in full remission, with melancholic features, with pure dysthymic syndrome 04/02/2011 Overview: Follows Dr Bony Yanes annually - duloxetine 20 mg Chronic insomnia 04/02/2011 Overview: Follows with Dr Bony Yanes - takes ativan 0.25 mg at bedtime, higher dose limited by fatigue. ; Insomnia, unspecified Symptomatic menopausal or female climacteric sta ja 07/12/2010 Overview: LW Modifier: based on symptoms, post hyst 1979 LW Onset: 1999 ; Menopause Atrophy of vulva 07/12/2010 Overview: LW Onset: 04/2010 ; Genital Atrophy Female Aquired Essential hypertension 08/21/2002 Overview: hydrochlorothiazide 25, atenolol 75, norvasc 5 mg ; Hypertension Resolved Problems Problem Noted Date Diagnosed Date Resolved Date Calculus of gallbladder with out cholecystitis without obstruction 01/28/2017 05/01/2017 Thoracic aortic aneurysm without rupture 01/28/2017 03/24/2023 Overview: 11/2015 mild dilation 4.1 cm, Dr Wolfe.CT FV 4.2. Moderate aortic insufficiency per echocardiogram in 2015. 03/03/2018 stable with mild dilation aorta 4.2 diameter. DUE ECHO 02/2020 per Sonia Closed fracture of bone 07/12/201012/15 Overview: LW Modifier: pelvis LW Onset: 2002 ; Fx Bone NOS Closed Bunion 07/09/2007 06/28/2013 Overview: LW Modifier: Right Varicella 09/26/2005 11/17/2015 Overview: Varicella Zoster Prolapse of vaginal wall 09/26/200501/2024 Overview: LW Modifier: Anterior repair;1981:rectocoele repair LW Onset: 1979 ; Cystocele Depressive disorder 09/26/2005 04/02/19 Overview: Depression NOS Neoplasm of uncertain behavior of skin 09/26/2005 09/05/2017 Overview: 2005 - has derm skin check Q 1-2 years ; Dysplastic Nevus Mitral valve disorder 09/26/20052016 Overview: Mitral Valve Prolapse Encounters Date Type Department Care Team Description 03/31/2023 Orders Only HIM DEPARTMENT Provider, MD Denice 03/27/2023 11:00 AM SOLE ASSESSOR Lab Visit [address] [address] Dilated aortic root (HRC); History of atrial fibrillation; Essential hypertension (HRC) 03/27/2023 10:30 AM SOLE ASSESSOR Pre-Op Visit [address] [address] Isidoro Leach MD Preop examination (Primary Dx); Lumbosacral radiculopathy at L3; Essential hypertension (HRC); Mixed hyperlipidemia (HRC); Nonrheumatic aortic valve insufficiency (HRC); Dilated aortic root (HRC); History of atrial fibrillation 03/24/2023 3:15 PM SOLE ASSESSOR Office Visit [facility] [address] [facility] [place] [address] Curt Wolfe MD Nurse, Cardiology [facility] Paroxysmal atrial fibrillation (HRC) (Primary Dx); Nonrheumatic aortic valve insufficiency (HRC); Essential hypertension (HRC); Mixed hyperlipidemia (HRC); Dilated aortic root (HRC) 03/24/2023 Notes/Orders [facility] Electrocardiogram, Holter, Event Recorder [address] [place] [address] Curt Wolfe MD Paroxysmal atrial fibrillation (HRC) (Primary Dx) 03/03/2023 1:45 PM SOLE ASSESSOR Office Visit [facility] [address] [facility] [place] [address] Sin Castorena MD Exudative age-related macular degeneration of right eye with active choroidal neovascularization (HRC) (Primary Dx); Epiretinal membrane, left eye 02/23/2023 Partner ED HIM DEPARTMENT Provider, MD CHRISTIANA Galdamez 02/23/2023 02/19/2023 E[facility]Visit [facility] [address] [place] [address] Mychart, Generic Provider 02/17/2023 12:00 PM SOLE ASSESSOR Lab Visit [facility] [address] [place] [phone] Stress incontinence of urine 02/17/2023 11:15 AM SOLE ASSESSOR Office Visit [place] [address] Obstetrics/Gynecol ogy [address] [place] [phone] Margareth Edwards, ANGELA KAHN Stress incontinence of urine (Primary Dx) 02/03/2023 10:30 AM SOLE ASSESSOR Office Visit [facility] [address] [place] [address] Sin Castorena MD Exudative age-related macular degeneration of right eye with active choroidal neovascularization (HRC) (Primary Dx); Epiretinal membrane, left eye 01/31/2023 11:15 AM SOLE ASSESSOR Therapy [facility] [address] [address] Rona Mcgrath, PT Chronic bilateral low back pain, unspecified whether sciatica present (Primary Dx); Lumbar radiculopathy, right 01/31/2023 Notes/Orders [facility] [place] [id number] [place] [address] Rona Mcgrath, PT 01/20/2023 11:15 AM SOLE ASSESSOR Therapy [facility] [address] [address] Rona Mcgrath, PT Chronic bilateral low back pain, unspecified whether sciatica present (Primary Dx) 01/14/2023 1:30 PM CDT Therapy [facility] [address] [address] Rona Mcgrath, PT Chronic bilateral low back pain, unspecified whether sciatica present (Primary Dx); Lumbar radiculopathy, right from Last 3 Months Immunizations Name Administration Dates Next Due DT Ped 06/14/1987 Flu Vac Preserv Free (3+yrs) 03/31/2012 Flublok (RIV4) 01/25/2019 Influenza (Fluzone 0.25, 6-35 mos) 02/05/2013 Influenza IIV3 (Trivalent) F luzone Highdose, 65+ Yrs (79913) 01/13/2018,01/02/2017,02/05/2016,2014,01/19/2014 Influenza IIV4 (Quadrivalent ) 0.5mL (94815) 02/05/2013 Influenza IIV4 (Quadrivalent ) Fluzone, 65+ Yrs 01/04/2023,01/28/2022,12/23/2020,2019 Influenza, Unspecified Formulation 04/04/2008 Moderna Bivalent 12+ 12/04/2021 Moderna Monovalent 12+ 03/07/2021,05/19/2020,07/2020 PCV13 (Prevnar) 10/27/2014 PPSV23 (Pneumovax) 01/28/2017 TDAP (ADACEL) 11/26/2007 Td 01/31/1999 Td (7+ yrs) 03/24/2019 Family History Medical History Relation Name Comments Emphysema Father Ed COPD High Blood Pressure Father Ed Hypertension Father Ed Macular Degeneration Father Ed Emphysema Mother Isis COPD High Blood Pressure Mother Isis Hypertension Mother Isis gallbladder cancer Mother Isis Cataract Brother 1 Emphysema Brother 1 Cataract Brother 2 Cataract Brother 3 Other Maternal Aunt CLL in melanoma Son Amblyopia/Strabismus Negative Family History Blindness Negative Family History Glaucoma Negative Family History Retinal Detachment Negative Family History Relation Name Status Comments Father Ed Mother Isis Brother 1 Alive Brother 2 Alive Brother 3 Alive Maternal Aunt Son Social History Tobacco Use Types Packs/Day Years [...] Comments Blood Pressure 130/79 03/27/2023 10:25 AM SOLE ASSESSOR Pulse 82 03/27/2023 10:25 AM SOLE ASSESSOR Temperature 36.8 ??C (98.2 ??F) 12/11/2022 9:06 AM CD T Respiratory Rate 16 03/27/2023 10:25 AM SOLE ASSESSOR Oxygen Saturation 98% 12/11/2022 9:06 AM CDT Inhaled Oxygen Concentration - - Weight 62.1 kg (137 lb) 03/27/2023 10:25 AM SOLE ASSESSOR Height 162.6 cm (5' 4) 03/24/2023 2:54 PM SOLE ASSESSOR Body Mass Index 23.52 03/24/2023 2:54 PM SOLE ASSESSOR Plan of Treatment Upcoming Encounters Date Type Department Care Team Description 04/10/2023 8:30 AM SOLE ASSESSOR Appointment [place] [address] Family Medicine [address] [place] [phone] [place] [address] [place] [address] 04/15/2023 10:45 AM SOLE ASSESSOR Appointment [facility] [address] [facility] [place], [place] [id number] Sin Castorena MD [address] [place] [address] Health Maintenance Due Date Last Done Comments Zoster/Shingles (1 of 2) 12/29/1997 COVID-19 Vaccine ( season) 2022 12/04/2021, 03/07/2021, 05/19/2020, Additional history exists Prediabetes: HGBA1C 03/14/2023 03/14/2022, 04/26/2021, 05/01/2020, Additional history exists Medicare Annual Wellness Visit 06/14/2023 06/13/2022, 04/26/2021, 04/20/2020, Additional history exists FIT Colon Cancer Screening 07/09/202307/08, 06/01/2021, 06/09/2020, Additional history exists Mammogram 12/21/2023 12/20/2022, 09/14, 03/13/2020, Additional history exists Dexa 11/15/2027 11/14/2021, 06/2019, 05/19/2019, Additional history exists DTaP/Tdap/Td (5 - Tdap) 03/24/2029 03/24/19, 11/26/2007, 01/31/1999, Additional history exists Pneumococcal 65+ Yrs Completed 01/28/2017, 10/28/19 Hep C Screening (Preventive Services) Completed 10/28/2017 Cholesterol Discontinued 06/26/2022, 04/17, 03/24/2019, Additional history exists Influenza Completed 01/04/2023, 01/15, 12/23/2020, Additional history exists HepA Aged Out No longer eligi ble based on patient's age to complete this topic HepB Aged Out No longer eligi ble based on patient's age to complete this topic Hib Aged Out No longer eligi ble based on patient's age to complete this topic IPV (Polio) Aged Out No longer eligi ble based on patient's age to complete this topic MCV4 Aged Out No longer eligi ble based on patient's age to complete this topic Medical Devices Implanted Type Area Film Masker Device Identifier Shelf Expiration Date Model / Serial / Lot Bone Lasr [id number] - [id number] Implanted:Qty: 1 on 11/25/2017 by Morgan Avelar MD at [facility] BIOLOGIC N/A: SPINE CERVICAL ANTERIOR [employer] - [employer] 06/17/2020 [id number] / [id number] / [id number] Description:C5-6 Bone Lasr [id number] - [id number] Implanted:Qty: 1 on 11/25/2017 by Morgan Avelar MD at [facility] DEVICE N/A: SPINE CERVICAL ANTERIOR [employer] - [employer] 10/03/2019 [id number] / [id number] / [id number] Description:C3-4 Plt Spnl Translational 57.5mm - [id number] Implanted:Qty: 1 on 11/25/2017 by Morgan Avelar MD at [facility] DEVICE N/A: SPINE CERVICAL ANTERIOR Med[employer]onic - [employer] 11/25/2017 [id number] / NA / NA Scr Sftp Va 4.0x12 - [id number] Implanted:Qty: 2 on 11/25/2017 by Morgan Avelar MD at [facility] DEVICE N/A: SPINE CERVICAL ANTERIOR Med[employer] - [employer] 11/25/2017 [id number] / NA / NA Scr Sftp Va 4.0x14 - [id number] Implanted:Qty: 5 on 11/25/2017 by Morgan Avelar MD at [facility] DEVICE N/A: SPINE CERVICAL ANTERIOR [employer] - [employer] 11/25/2017 [id number] / NA / NA Procedures Procedure Name Priority Date/Time Associated Diagnosis Comments EKG 03/31/2023 BASIC METABOLIC PANEL Routine 03/27/2023 10:51 AM SOLE ASSESSOR Essential hypertension (HRC) INR/PROTIME Routine 03/27/2023 10:51 AM SOLE ASSESSOR History of atrial fibrillation COMPLETE BLOOD COUNT-NO DIFF Routine 03/27/2023 10:51 AM SOLE ASSESSOR Dilated aortic root (HRC) ECG 12 LEAD OUTPATIENT Routine 03/24/2023 3:09 PM SOLE ASSESSOR Paroxysmal atrial fibrillation (HRC) URINALYSIS ROUTINE, MICRO/CULTURE IF POS Routine 02/17/2023 11:57 AM SOLE ASSESSOR Stress incontinence of urine from Last 3 Months Results * EKG (03/31/2023) Interface Provider EKG * Basic Metabolic Panel (03/27/2023 10:51 AM [facility]) Sodium 142 136 - 145 mmol/L 03/27/2023 4:45 PM [facility] Potassium 3.7 3.5 - 5.1 mmol/L 03/27/2023 4:45 PM [facility] Chloride 104 98 - 109 mmol/L 03/27/2023 4:45 PM [facility] CO2 25 20 - 29 mmol/L 03/27/2023 4:45 PM [facility] Anion Gap 13 7 - 16 mmol/L 03/27/2023 4:45 PM [facility] Calcium 9.3 8.4 - 10.4 mg/dL 03/27/2023 4:45 PM [facility] BUN 14 7 - 26 mg/dL 03/27/2023 4:45 PM [facility] Creatinine 0.73 0.55 - 1.02 mg/dL 03/27/2023 4:45 PM [facility] Glucose 87 70 - 100 mg/dL 03/27/2023 4:45 PM [facility] Comment:The given reference range is for the fasting state. Non-fasting reference range for glucose is 70 - 180 mg/dL. GFR, Estimated >60 >60 mL/min/1.7 3m2 03/27/2023 4:45 PM [facility] Hours Fasting 0.0 8 - 12 Hours 03/27/2023 4:45 PM [facility] Blood Venipuncture / Unknown 03/27/2023 10:51 AM SOLE ASSESSOR 03/27/2023 10:51 AM [facility] Isidoro Leach MD LAB_1 [facility] [address] [place] [address], [facility] [phone] * Complete Blood Count-No Diff (03/27/2023 10:51 AM SOLE ASSESSOR) WBC 9.0 3.5 - 10.5 x10(9)/L 03/27/2023 10:55 AM [facility] RBC 4.17 3.90 - 5.03 x10(12)/L 03/27/2023 10:55 AM [facility] Hemoglobin 12.9 12.0 - 15.5 g/dL 03/27/2023 10:55 AM [facility] HCT 39.5 34.9 - 44.5 % 03/27/2023 10:55 AM [facility] MCV 94.7 80.0 - 100.0 fL 03/27/2023 10:55 AM [facility] MCH 30.9 27.6 - 33.3 pg 03/27/2023 10:55 AM [facility] MCHC 32.7 31.5 - 35.2 g/dL 03/27/2023 10:55 AM [facility] RDW 12.7 11.9 - 15.5 % 03/27/2023 10:55 AM [facility] Platelets 432 150 - 450 x10(9)/L 03/27/2023 10:55 AM [facility] Blood Venipuncture / Unknown 03/27/2023 10:51 AM SOLE ASSESSOR 03/27/2023 10:51 AM SOLE ASSESSOR Isidoro Leach MD LAB_1 Performing Organization Address City/State/[facility] Co de Phone Number [facility] [address] [place] [address], [facility] [phone] * INR/Protime (03/27/2023 10:51 AM SOLE ASSESSOR) Pathologist [facility] Protime 12.4 11.8 - 14.6 Seconds 03/27/2023 11:05 AM [facility] INR 0.9 0.9 - 1.1 03/27/2023 11:05 AM [facility] Blood Venipuncture / Unknown 03/27/2023 10:51 AM SOLE ASSESSOR 03/27/2023 10:51 AM SOLE ASSESSOR Narrative [facility] - 03/27/2023 11:05 AM SOLE ASSESSOR Therapeutic range determined by protocol established by anticoagulation provider. Isidoro Leach MD LAB_1 Performing Organization Address [facility]/ZIP Co de Phone Number [facility] [address] [place] [address], [facility] [phone] * ECG 12 Lead Outpatient (03/24/2023 3:09 PM SOLE ASSESSOR) Ventricular Rate 61 BPM [facility] Atrial Rate 61 BPM [facility] P-R Interval 158 ms [facility] QRS Duration 86 ms [facility] QT 452 ms [facility] QTc 455 ms [facility] P [place] 51 degrees MUSE G[facility] R [place] -8 degrees MUSE [facility] T [place] 29 degrees MUSE [facility] 03/24/2023 3:09 PM SOLE ASSESSOR Narrative [facility] - 03/24/2023 3:26 PM SOLE ASSESSOR Sinus rhythm Normal ECG When compared with ECG of 26-APR-2021 16:44, No significant change was found Confirmed by Curt Wolfe ([id number]) on 03/24/2023 3:26:04 PM Procedure Note Curt Wolfe MD - 03/24/2023 Sinus rhythm Normal ECG When compared with ECG of 26-APR-2021 16:44, No significant change was found Confirmed by Curt Wolfe ([id number]) on 03/24/2023 3:26:04 PM Curt Wolfe MD PN ECG ORDERABLES Performing Organization Address [facility]/ZIP Co de Phone Number [facility] [address] [place] [address] * (ABNORMAL) Urinalysis Routine, Micro/Culture if Pos: Clean Catch (02/17/2023 11:57 AM SOLE ASSESSOR) Urine Culture Comment Urinalysis results do not meet criteria for urine culture reflex. 02/17/2023 11:59 AM [facility] Urine Color Yellow 02/17/2023 11:59 AM [facility] Urine Clarity Clear Clear 02/17/2023 11:59 AM [facility] Specific [place], Urine 1.020 1.005 - 1.030 02/17/2023 11:59 AM [facility] PH Urine 5.5 5.0 - 8.0 02/17/2023 11:59 AM SOLE ASSESSOR [facility] Protein, Urine Qual (mg/dL) Trace Neg/Trace 02/17/2023 11:59 AM SOLE ASSESSOR [facility] Glucose Urine Qual (mg/dL) Negative Negative 02/17/2023 11:59 AM SOLE ASSESSOR [facility] Ketones, Urine (mg/dL) Trace(A) Negative 02/17/2023 11:59 AM [facility] Urobilinogen, Urine (EU/dL) 0.2 <2.0 02/17/2023 11:59 AM SOLE ASSESSOR [facility] Bilirubin Urine Negative Negative 02/17/2023 11:59 AM SOLE ASSESSOR [facility] Blood, Urine Negative Neg/Trace 02/17/2023 11:59 AM SOLE ASSESSOR [facility] Nitrite Urine Negative Negative 02/17/2023 11:59 AM [facility] Leukocyte Est. Negative Negative 02/17/2023 11:59 AM [facility] Urine Source Clean Catch 02/17/2023 11:59 AM [facility] Urine URINE SPECIMEN COLLECTION, CLEAN CATCH / Unknown Non-blood Collection / Unknown 02/17/2023 11:57 AM SOLE ASSESSOR 02/17/2023 11:57 AM SOLE ASSESSOR Margareth Edwards APRN, CNM LAB_1 [facility] [address] [place] [address], [facility] [phone] from Last 3 Months Additional Health Concerns Infection Onset Date Last Indicated 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 (+) 11/07/2015 11/07/2015 Advance Directives Latest Code Status on File Code Status Date Activated Date Inactivated Comments Full Code 11/25/2017 12:48 PM 11/26/2017 4:55 PM Code Status History Code Status Date Activated Date Inactivated Comments Full Code 03/28/2017 11:09 AM 03/28/2017 4:40 PM Full Code 06/24/2014 12:24 PM 06/25/2014 1:05 PM Care Teams Bridge Opener Relationship Specialty Start [place] [address] [address] PCP - General Internal Medicine 11/09/15
--- OUTSIDE RECORDS SUMMARY | 2023-04-05 09:22 | XMS_ITS | Encounter Summary ---
Author Name Unknown Organization [facility] Address [address], [place] [address] Care Team Providers Care Dosier Operator Name Role Phone Carolynn Alvarado MD Primary Care Provider [phone] Reason for Visit * Reason Comments Injection Encounter Details Date Type Department Care Team Description 03/03/2023 1:45 PM EXHIBIT DESIGNER Office Visit [facility] [address] [facility] [place] [address] Sin Castorena MD [address] [place], [place] [address] Exudative age-related macular degeneration of right eye [...] this encounter Patient Instructions * Patient Instructions* Satish Carrillo COA - 03/03/2023 1:45 PM EXHIBIT DESIGNER Control your blood pressure, blood sugar and [...] to keep the eye closed or use [id number]-[id number] artificial tears for comfort. You may see [...] you develop any of the following symptoms: Eye pain Decreased vision Redness involving all of the white part of your eye Sensitivity to light Eye discharge (other than tears/bloody tears) Call [phone] with any problems. BIT DESIGNER documented in this encounter Progress Notes * Sin Castorena MD - 03/03/2023 1:45 PM CST The medications, allergies, and past medical [...] CNV/SHRM, (+) lucency v. SRF, (-) IRF; stable OCT of the left eye - ERM, [...] wks, recurrent - Plan - LATRICIA OD #6 03/03/23 - f/u 4-6 weeks, IVV OD #1 - IVV approved, good days #) ERM, OS - inferior to fovea [...] understanding. Callback precautions discussed Follow up in 4-6 wks, IVV OD #1 (consent for IVV), injxn only. OCT on arrival Last DFE: [...] the patient and family- Sin Castorena MD BIT DESIGNER documented in this encounter Procedure Notes * Satish Carrillo COA - 03/03/2023 1:45 PM CST Intravitreal Injection Operative Report Eye: Right Surgeon: Sin Castorena MD Medicaton: Eylea 0.05 mL (2 mg) Lot number: [id number], Exp 04/2024 Anesthesia: tetracaine, lidocaine gel 5% povidone iodine [...] of a peripheral shadow in the vision. BIT DESIGNER documented in this encounter Plan of Treatment Upcoming Encounters Date Type Department Care Team Description 04/10/2023 8:30 AM EXHIBIT DESIGNER Appointment [place] [phone] [place] [address] [place] [address] 04/15/2023 10:45 AM EXHIBIT DESIGNER Appointment [facility] [address] [facility]. 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
--- OUTSIDE RECORDS SUMMARY | 2023-04-05 09:23 | XMS_ITS | Encounter Summary ---
Author Name Unknown Organization [facility] Address [address] [place] [address] Care Team Providers Care Rack Loader Name Role Phone Carolynn Alvarado MD Primary Care Provider [phone] Encounter Details Date Type Department Care Team Description 07/08/2022 9:30 PM CDT Lab Visit [facility] [address], [place] [address] Screening for colon cancer Social History Tobacco Use Types Packs/Day Years [...] Department Care Team Description 04/10/2023 8:30 AM RN CALL CENTER Appointment [place] [address] [facility] [address] [place] [phone] [place] [address] [place] [address] 04/15/2023 10:45 AM RN CALL CENTER Appointment [facility] [address] [facility] [place] [address] Sin Castorena MD [address] [place] [address] documented as of this encounter Procedures Procedure Name Priority Date/Time Associated Diagnosis Comments FIT COLON RECTAL CANCER SCREENING Routine 07/08/2022 8:00 AM CDT Screening for colon cancer documented in this encounter Results * FIT Colon Rectal Cancer Screening (07/08/2022 8:00 AM CDT) FIT Specimen 1 Negative Negative 07/09/2022 9:41 AM CDT [facility] Stool 07/08/2022 8:00 AM CDT 07/08/2022 6:44 PM CDT Carolynn Alvarado MD LAB_1 Performing Organization Address City/State/[facility] Co de Phone Number [facility] [address] [phone] documented in this encounter Visit Diagnoses Diagnosis Screening for colon cancer Special screening for malignant neoplasms, colon documented in this encounter Additional Health Concerns Infection Onset Date Last Indicated Resolved Time 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
--- OUTSIDE RECORDS SUMMARY | 2023-04-05 09:23 | XMS_ITS | Encounter Summary ---
Author Name Unknown Organization [facility] Address [address] [place] [address] Care Team Providers Care Medical Records Field Technician Name Role Phone Carolynn Alvarado MD Primary Care Provider [phone] Reason for Visit * Reason Comments Refill methocarbamol (ROBAX IN) 500 MG tablet [Pharmacy Med Name: METHOCARBAMOL 500MG TABLETS] Encounter Details Date Type Department Care Team Description 12/23/2022 Refill [facility] [address] [place], [place] [phone] Carolynn Alvarado MD [address] [place] [address] Refill (methocarbamol (ROBAXIN) 500 MG tablet [Pharmacy Med Name: METHOCARBAMOL 500MG TABLETS]) Social History Tobacco Use Types Packs/Day Years [...] on file documented as of this encounter Nursing Notes * Interface, Out Surescripts Prov Query - 12/23/2022 6:42 PM CDT methocarbamol (ROBAXIN) 500 MG tablet [Pharmacy Med Name: METHOCARBAMOL 500MG TABLETS] Medication started: 03/14/2022 Last ordered by CAROLYNN ALVARADO: 03/14/2022 (284 days ago) QTY: 30, Refills: 5, Sig: take 1 tablet(500 mg) by mouth at bedtime as needed for other. (changed but equivalent) -> Medication cannot be delegated. Last qualifying visit: 06/13/2022 (with CAROLYNN ALVARADO) Next scheduled visit: None [facility] Embedded Refills, Reference: [id number], 12/23/2022 6:42:18 PM CDT, Pool: RAYA IMED REFILL ([id number]) REGISTER MECHANIC documented in this encounter Plan of Treatment Upcoming Encounters Date Type Department Care Team Description 04/10/2023 8:30 AM CASH REGISTER MECHANIC Appointment [place] [address] [facility] Medicine [address] [place] [phone] [place] [address] [place] [address] 04/15/2023 10:45 AM CASH REGISTER MECHANIC Appointment [address] [place] [facility] 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
--- OUTSIDE RECORDS SUMMARY | 2023-04-05 09:23 | XMS_ITS | Encounter Summary ---
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 Castorena 06/28/[address] Vyas 03/07/22 The medications, allergies, and past medical and social histories in the medical record were reviewed. Review of Systems: Pertinent items are noted in patient history; the remainder of the complete review of systems is negative. General Medical Observation: Alert, appears well Ocular Surgeries and History: - PCIOL OU Retinal Imaging (All images were reviewed by Sin Castorena MD): OCT of the right eye - central macular CNV/SHRM, (+) SRF, (-) IRF, improved OCT of the left eye - ERM, rpe mottling, rare drusen, (-) IRF/SRF; stable Optos IVFA 03/2022 - normal fill, late macular leakage OD, otherwise wnl Impression/Plan: #) Wet AMD, active CNV, OD - Active CNV OD w/ [...] would like to proceed w/ injections - Plan - LORRAINE OD #5, if stable TAE (07/26/22) - f/u 4 weeks, LORRAINE OD - LATRICIA PA approved #) ERM, OS -Inferior to fovea - not VS, monitor #) [...] Callback precautions discussed Follow up in 4 week, LORRAINE OD #6, injxn only. OCT on arrival Last DFE: 06/2022 Further details of the management plan can [...] the patient and family- Sin Castorena MD documented in this encounter Procedure Notes * Laura Bueno - 07/26/2022 10:30 AM CDT Intravitreal Injection Operative Report Eye: Right Surgeon: Sin Castorena MD Medicaton: Avastin 0.05 mL (1.25mg) Lot number: [id number], Exp 11/08/2022 Anesthesia: tetracaine, akten 5% povidone iodine drop after tetracaine. Lid [...] of a peripheral shadow in the vision. documented in this encounter Plan of Treatment Upcoming Encounters Date Type Department Care Team Description 04/10/2023 8:30 AM AIR DRILL OPERATOR Appointment [address] Medicine [address] [place] [phone] [place] [id number] [place] [address] 04/15/2023 10:45 AM AIR DRILL OPERATOR Appointment [place] [address] [place] [address]. 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
--- OUTSIDE RECORDS SUMMARY | 2023-04-05 09:23 | XMS_ITS | Encounter Summary ---
Author Name Unknown Organization [facility] Address [address] [place] [address] Care Team Providers Care Sonographer Name Role Phone Carolynn Alvarado MD Primary Care Provider [phone] Reason for Visit * Reason Comments Injection Encounter Details Date Type Department Care Team Description 11/21/2022 10:30 AM CDT Nursing Visit [facility] [address] [place] [address] Nurse, [facility] Osteoporosis with current pathological fracture, unspecified osteoporosis type, sequela (Primary Dx) Social History Tobacco Use Types [...] as of this encounter Progress Notes * Matt Mtz - 11/21/2022 10:30 AM CDT Prolia Injection O: Per Dr. Campbell to administer Prolia 60mg/mL injection. D: Verified patient insurance prior authorization was completed. Prolia 60mg/mL administered subcutaneously. A: No symptoms noted at injection site. R: Patient tolerated injection and informed to call with symptoms. documented in this encounter Plan of Treatment Upcoming Encounters Date Type Department Care Team Description 04/10/2023 8:30 AM APPLIED BEHAVIOR SPECIALIST Appointment [place] [address] Family Medicine [address] [place] [phone] [place] [address] [place] [address] 04/15/2023 10:45 AM APPLIED BEHAVIOR SPECIALIST Appointment [facility] [address] [facility]. [place], [place] [phone] Sin Castorena MD [address] [place], [place] [phone] documented as of this encounter Visit Diagnoses Diagnosis Osteoporosis with current pathological fracture, unspecified osteoporosis type, sequela- Primary documented in this encounter Administered Medications Inactive Administered Medications - up to 3 most recent administrations Medication Order MAR Action Action Date Dose Rate Site denosumab (PROLIA) injection 60 mg 60 mg, Subcutaneous, EVERY 6 MONTHS, First dose on Fri04/16/22 at 1845, Last dose on Fri10/15/22 at 1845, For 2 doses, Inject in upper arm, upper thigh, or abdomen Prior to administration allow denosumab to reach room temperature Given 11/21/2022 10:30 AM CDT 60 mg Left Arm Given 05/23/2022 10:15 AM APPLIED BEHAVIOR SPECIALIST 60 mg L eft Arm documented in this encounter Additional Health Concerns Infection Onset Date Last Indicated Resolved Time MRSA Comment:06/24/14 narbeatriz (+) 11/07/2015 11/07/2015 documented as of this encounter Care Teams Sonographer Relationship Specialty Start [place] [address] [place] [address] [place] [address] PCP - General Internal Medicine 11/09/15 documented as of this encounter
--- OUTSIDE RECORDS SUMMARY | 2023-04-05 09:23 | XMS_ITS | Encounter Summary ---
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 [address] [place] [address]. 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 You may see [...] Eye discharge (other than tears/bloody tears) Call [phone] with any problems. documented in this encounter Progress Notes * Sin Castorena MD - 08/23/2022 1:45 PM CDT Last visit with Dr. Castorena 07/26/[address] Vyas 03/07/22 The medications, allergies, and past medical and social histories in the medical record were reviewed. Review of Systems: Pertinent items are noted in patient history; the remainder of the complete review of systems is negative. General Medical Observation: Alert, appears well Ocular Surgeries and History: - PCIOL OU - LORRAINE OD TAE start 08/23/22 Retinal Imaging (All images were reviewed by Sin Castorena MD): OCT of the right eye - central macular CNV/SHRM, (+) SRF, (-) IRF, stable OCT of the left eye - [...] w/ injections - Plan - LORRAINE OD #6 08/23/22 - Start LORRAINE TAE 08/23/22 - f/u 6 weeks, LORRAINE OD - LATRICIA PA approved [...] understanding. Callback precautions discussed Follow up in 6 week, LORRAINE OD #7, Dil OU. OCT on arrival Last DFE: 06/2022 Further [...] encounter Procedure Notes * Laura Bueno - 08/23/2022 1:45 PM CDT Intravitreal Injection Operative Report Eye: Right Surgeon: Sin Castorena MD Medicaton: Avastin 0.05 mL (1.25mg) Lot number: [id number], Exp 11/28/2022 Anesthesia: tetracaine, akten 5% povidone iodine drop [...] Department Care Team Description 04/10/2023 8:30 AM FIELD SALES MANAGER Appointment [place] [address] Family Medicine [address] [place] [address] [place] [address] [place] [address] 04/15/2023 10:45 AM FIELD SALES MANAGER Appointment [facility] [address] [facility]. 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
--- OUTSIDE RECORDS SUMMARY | 2023-04-05 09:23 | XMS_ITS | Encounter Summary ---
Author Name Unknown Organization [facility] Address [address] [place] [address] Care Team Providers Care Uplands Division Director Name Role Phone Carolynn Alvarado MD Primary Care Provider [phone] Reason for Visit * Procedure/Equipment (Routine) - Incomplete Specialty Diagnoses / Procedures Referred By Eladioac t Referred To Contact Diagnoses Radiculopathy of lumbar region Procedures MR Lumbar Spine WO IV Cont Carey Rashid, DO [address] [place] [address] Referral ID Status Reason Start Date Expiration Date V isits Requested Visits Authorized [id number] Incomplete 07/01/2022 09/30/2023 1 1 Encounter Details Date Type Department Care Team Description 07/03/2022 11:00 AM CDT Ancillary Procedure [facility] [address] Rad[address] [place] [address] [place] [address] Carey Rashid DO [address] [place], [place] [id number] Radiculopathy of lumbar region Social History Tobacco Use Types Packs/Day Years [...] Department Care Team Description 04/10/2023 8:30 AM PELLETISING EXTRUDER OPERATOR Appointment [place] [address] [facility] [address] [place] [address] [place] [address] [place], [place] [id number] 04/15/2023 10:45 AM PELLETISING EXTRUDER OPERATOR Appointment [facility] [address] [place] [address] Sin Castorena MD [address] [place], [place] [phone] documented as of this encounter Procedures Procedure Name Priority Date/Time Associated Diagnosis Comments MR LUMBAR SPINE WO IV CONT Routine 07/03/2022 11:14 AM CDT Radiculopathy of lumbar region documented in this encounter Results * MR Lumbar Spine WO IV Cont (07/03/2022 11:14 AM CDT) Anatomical Region Laterality Modality Spine, L-Spine, Skeletal, MSK Ma gnetic Resonance 07/03/2022 10:4 1 AM CDT Impressions 07/03/2022 3:56 PM CDT INDICATION: Low back pain, symptoms persist with > 6 wks treatment; Lumbar radiculopathy, symptoms persist with > 6 wks treatment; Previous lumbar surgery, osteoporosis. Right groin pain. Low back pain TECHNIQUE: ??Routine non-contrast MRI of the lumbar spine. COMPARISON: 10/03/2020, 11/23/2017, 01/07/2005. FINDINGS: Five lumbar-type vertebral bodies. The conus medullaris terminates at the level of the L1 vertebra. ??Normal cord signal. ??Moderate endplate edema, eccentric to the left at L1-L2. ??Grade 1 retrolisthesis of L1 on L2, and grade 1 anterolisthesis of L4 on L5. Moderate to severe disc height loss from L1-L2 through L4-L5. The visualized paraspinal structures are unremarkable. Axial: T12-L1: Unremarkable. L1-2: Interval postsurgical changes on the right with interval removal of the free disc fragment in the right subarticular recess. Residual disc bulge. Increased moderate to severe right foraminal stenosis. L2-3: Right eccentric disc bulge. Bilateral facet hypertrophy. Mild canal stenosis. Similar moderate right and mild left foraminal stenosis. ?? L3-4: Similar left eccentric disc bulge. Bilateral facet hypertrophy. Mild canal stenosis. Similar nxufpdyx-nh-oizujf left and moderate right foraminal stenosis. L4-5: Disc bulge. Bilateral facet hypertrophy. Mild canal stenosis. Moderate left and mild right foraminal stenosis. No change. L5-S1: Mild disc bulge. Bilateral facet hypertrophy. No canal stenosis. No foraminal stenosis. ?? IMPRESSION: ?? 1. Interval postoperative changes of right-sided microdiscectomy at L1-L2 with removal of the free disc fragment in the right subarticular zone resulting in improved patency. 2. Additional degenerative changes as detailed above, otherwise stable compared to prior. Comment: Many lumbar spine MRI findings are so common that while we may have reported their presence, they must be interpreted with caution and in the context of the clinical situation. The frequency of these findings in adults WITHOUT low back pain increases with age and are as follows: disk degeneration (37-96%), disk height loss (24-84%), disk bulge (30-84%), disk protrusion (29-43%), annular fissure (19- 29%), and facet degeneration (4-83%). Frequency percentages adapted from Estella W, Jahaira PH, Waqas B, et al. AJNR AM J Neuroradiol 2015:36:811-16. Narrative Procedure Note Joaquin Shultz MD - 07/03/2022 IMPRESSION INDICATION: Low back pain, symptoms persist with > 6 wks treatment; Lumbarradiculopathy, symptoms persist with > 6 wks treatment; Previous lumbarsurgery, osteoporosis. Right groin pain. Low back pain TECHNIQUE: Routine non-contrast MRI of the lumbar spine. COMPARISON: 10/03/2020, 11/23/2017, 01/07/2005. FINDINGS: Five lumbar-type vertebral bodies. The conus medullaristerminates at the level of the L1 vertebra. Normal cord signal. Moderateendplate edema, eccentric to the left at L1-L2. Grade 1 retrolisthesis ofL1 on L2, and grade 1 anterolisthesis of L4 on L5. Moderate to severe discheight loss from L1-L2 through L4-L5. The visualized paraspinal structuresare unremarkable. Axial: T12-L1: Unremarkable. L1-2: Interval postsurgical changes on the right with interval removal ofthe free disc fragment in the right subarticular recess. Residual discbulge. Increased moderate to severe right foraminal stenosis. L2-3: Right eccentric disc bulge. Bilateral facet hypertrophy. Mild canalstenosis. Similar moderate right and mild left foraminal stenosis. L3-4: Similar left eccentric disc bulge. Bilateral facet hypertrophy. Mildcanal stenosis. Similar iwapedtd-lx-rvhuaz left and moderate rightforaminal stenosis. L4-5: Disc bulge. Bilateral facet hypertrophy. Mild canal stenosis.Moderate left and mild right foraminal stenosis. No change. L5-S1: Mild disc bulge. Bilateral facet hypertrophy. No canal stenosis. Noforaminal stenosis. IMPRESSION: 1. Interval postoperative changes of right-sided microdiscectomy at L1-L2with removal of the free disc fragment in the right subarticular zoneresulting in improved patency. 2. Additional degenerative changes as detailed above, otherwise stablecompared to prior. Comment: Many lumbar spine MRI findings are so common that while we mayhave reported their presence, they must be interpreted with caution and inthe context of the clinical situation. The frequency of these findings inadults WITHOUT low back pain increases with age and are as follows: diskdegeneration (37-96%), disk height loss (24-84%), disk bulge (30-84%),disk protrusion (29-43%), annular fissure (19- 29%), and facet degeneration(4-83%). Frequency percentages adapted from Estella W, Jahaira PH, Waqas B, etal. AJNR AM J Neuroradiol 2015:36:811-16. 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
--- OUTSIDE RECORDS SUMMARY | 2023-04-05 09:23 | XMS_ITS | Encounter Summary ---
Author Name Unknown Organization [facility] Address [address] [place] [address] Care Team Providers Care Configuration Management Architect Name Role Phone Carolynn Alvarado MD Primary Care Provider [phone] Reason for Visit * Reason Comments Follow-up Encounter Details Date Type Department Care Team Description 11/29/2022 1:00 PM CDT Office Visit [facility] [address] [facility] [place], [place] [address] Sin Castorena MD [address] [place], [place] [phone] Exudative age-related macular degeneration of right eye [...] this encounter Patient Instructions * Patient Instructions* Leah Allred, COA - 11/29/2022 1:00 PM CDT Control your blood pressure, blood [...] to keep the eye closed or use vmle-anq-fcuhgwc artificial tears for comfort. You may see [...] Eye discharge (other than tears/bloody tears) Call [phone] with any problems. documented in this encounter Progress Notes * Sin Castorena MD - 11/29/2022 1:00 PM CDT Last visit with Dr. Castorena 11/01/[address] Vyas 03/07/22 The medications, [...] 6 weeks - LATRICIA OD switch 10/04/22 Retinal Imaging (All images were reviewed by Sin Castorena MD): OCT of the right eye - central macular CNV/SHRM, (+) SRF, (-) IRF; improved OCT of the left eye - [...] vision; pt voiced understanding and consents - Plan - LATRICIA OD #3 11/29/22 - f/u 4 weeks, LATRICIA OD #) ERM, OS - inferior to fovea [...] understanding. Callback precautions discussed Follow up in 4wks, LATRICIA OD #4, dil OU, OCT OU Last DFE: 09/2022 Further details of the management plan can [...] documented in this encounter Procedure Notes * Leah Allred COA - 11/29/2022 1:00 PM CDT Intravitreal Injection Operative Report Eye: Right Surgeon: Sin Castorena MD Medicaton: Eylea 0.05 mL (2 mg) Lot number: [id number], Exp 01/15/24 Anesthesia: tetracaine, lidocaine gel 5% povidone iodine [...] Department Care Team Description 04/10/2023 8:30 AM REGRIND MILL OPERATOR Appointment [place] [address] [facility] [address] [place] [address] [place] [address] [place] [address] 04/15/2023 10:45 AM REGRIND MILL OPERATOR Appointment [facility] [address] [facility] 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 documented in this encounter Administered Medications Inactive Administered Medications - up to 3 most recent administrations Medication Order MAR Action Action Date Dose Rate Site aflibercept (EYLEA) 2 MG/0.05ML prefilled syringe 2 mg 2 mg, Intravitreal, ONCE, On Fri11/29/22 at 1400, For 1 dose, HIGH ALERT medication HAZARDOUS DRUG Administration: Double glove, chemo gown; if no closed-system drug-transfer device (CSTD), include eye protection Must be given by trained nurse (antineoplastic, chemotherapeutic, or cytotoxic medication) Given 11/29/2022 1:40 PM CDT 2 mg Right Eye documented in this encounter Additional Health Concerns Infection Onset Date Last Indicated Resolved Time 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
--- OUTSIDE RECORDS SUMMARY | 2023-04-05 09:23 | XMS_ITS | Encounter Summary ---
Author Name Unknown Organization [facility] Address [address], [place] [address] Care Team Providers Care Rn Bariatric Name Role Phone Carolynn Alvarado MD Primary Care Provider [phone] Reason for Visit * Reason Comments NAIL PROBLEM Right great toenail fungus Encounter Details Date Type Department Care Team Description 08/13/2022 9:30 AM CDT Office Visit [facility] [address] [facility] [address] [place] [address] Tra Mullins, DPM [address] [place], [place] [address] Onychomycosis (Primary Dx) Social History Tobacco Use Types [...] as of this encounter Progress Notes * Tra Mullins DPM - 08/13/2022 9:30 AM CDT [facility] PROGRESS NOTE NAME: Michelle Franz CSN: [id number] DATE OF VISIT: 08/13/2022 Chief Complaint Patient presents with NAIL PROBLEM Right great toenail fungus SUBJECTIVE: Patient presents to clinic today with a complaint of thickened dystrophic right hallux nail. These have been present for a while and did results from trauma. The nail has stopped growing in the last 8 months. No pain. She has had the right 2nd toenail removed previously MEDICATIONS: Reviewed today in [facility] ALLERGIES: Reviewed today in [facility] Past medical history, Past surgical history, Social and Family histories were reviewed and updated as appropriate today. REVIEW OF SYSTEMS - Otherwise negative unless listed in HPI OBJECTIVE: Michelle Franz is a 76 y.o. female in no acute distress. Patient appears stated age and ambulates without a limp. Alert and oriented x3. Vascular: Dorsalis pedis and posterior tibial arteries are palpable bilaterally skin is warm to touch. The patient has normal texture, turgor, and distribution of pedal hair growth to bilateral feet.Capillary refill is less than 3 seconds Neurologic: Distal neurologic sensation appears grossly intact. Nails: The bilateral hallux nails are thickened dystrophic, and discolored right worse than left. No tenderness to palpation. No erythema, edema, active or expressed drainage. ASSESSMENT: Onychomycosis bilateral nails PLAN: Discussed etiology and treatment options for fungal nails including topical ointment, oral anti-fungal with baseline LFT lab draw, and removal. Discussed the P&A procedure, post operative course, potential complications. Patient was told she could have pain, infection and regrowth (10% chance). She will continue to paint the nail until she is ready to have it removed. Tra Mullins DPM documented in this encounter Plan of Treatment Upcoming Encounters Date Type Department Care Team Description 04/10/2023 8:30 AM AIRCRAFT DESIGNER Appointment [place] [address] Family Medicine [address] [place] [phone] [place] [address] [place] [address] 04/15/2023 10:45 AM AIRCRAFT DESIGNER Appointment [facility] [address] 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
--- OUTSIDE RECORDS SUMMARY | 2023-04-05 09:23 | XMS_ITS | Encounter Summary ---
Author Name Unknown Organization [facility] Address [address], [place] [address] Care Team Providers Care Spice Cleaner Name Role Phone Carolynn Alvarado MD Primary Care Provider [phone] Reason for Visit * Reason Comments Follow-up Encounter Details Date Type Department Care Team Description 10/04/2022 10:30 AM CDT Office Visit [facility] [address] [facility] 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 You may see [...] Eye discharge (other than tears/bloody tears) Call [phone] with any problems. documented in this encounter Progress Notes * Sin Castorena MD - 10/04/2022 10:30 AM CDT Last visit with Dr. Castoerna 08/23/[address] Vyas 03/07/22 The medications, [...] central macular CNV/SHRM, (+) SRF, (-) IRF; recurrent OCT of the left eye - ERM, [...] and consents - Plan - LATRICIA OD #1 10/04/22 - f/u 4 weeks, LATRICIA OD - LATRICIA PA approved #) ERM, [...] precautions discussed Follow up in 4 week, LATRICIA OD #2, injxn only. OCT on arrival Last DFE: 09/2022 Further details of the [...] Procedure Notes * Sin Castorena MD - 10/04/2022 10:30 AM CDT Intravitreal Injection Operative Report Eye: Right Surgeon: Sin Castorena MD Medicaton: Eylea 0.05 mL (2 mg) Lot number: [id number], Exp 04/16/23 Anesthesia: tetracaine, akten 5% povidone iodine drop [...] Department Care Team Description 04/10/2023 8:30 AM [facility] Appointment [place] [id number] [place] [address] [place] [address] [place] [address] 04/15/2023 10:45 AM TAX ACCOUNTANT Appointment [facility] [address] [place] [address]. 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 Pseudophakia, both eyes Lens replaced by other means documented in this encounter Administered Medications Inactive Administered Medications - up to 3 most recent administrations Medication Order MAR Action Action Date Dose Rate Site aflibercept (EYLEA) 2 MG/0.05ML prefilled syringe 2 mg 2 mg, Intravitreal, ONCE, On Fri10/04/22 at 1145, For 1 dose, HIGH ALERT medication HAZARDOUS DRUG Administration: Double glove, chemo gown; if no closed-system drug-transfer device (CSTD), include eye protection Must be given by trained nurse (antineoplastic, chemotherapeutic, or cytotoxic medication) Given 10/04/2022 11:15 AM CDT 2 mg Righ t Eye documented in this encounter Additional Health Concerns Infection Onset Date Last Indicated Resolved Time 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
--- OUTSIDE RECORDS SUMMARY | 2023-04-05 09:23 | XMS_ITS | Encounter Summary ---
Author Name Unknown Organization [facility] Address [address] [place] [address] Care Team Providers Care Hammerer Helper Name Role Phone Carolynn Alvarado MD Primary Care Provider [phone] Reason for Referral * Procedure/Equipment (Routine) - Incomplete Specialty Diagnoses / Procedures Referred By Contac t Referred To Contact Diagnoses Radiculopathy of lumbar region Procedures MR Lumbar Spine WO IV Carey Wheat DO [address] [place] [address] Referral ID Status Reason Start Date Expiration Date V isits Requested Visits Authorized [id number] Incomplete 07/01/2022 09/30/2023 1 1 Reason for Visit * Reason Comments Follow-up * Consult/Transfer Care (Routine) - New Request Specialty Diagnoses / Procedures Referred By Contselvin t Referred To Contact Pain Management Diagnoses Back pain, unspecified back location, unspecified back pain laterality, unspecified chronicity Jolene Levin, DO [address] [facility] [place] [address] [id number] [facility] [address] [place] [address]. [place] [address] Referral ID Status Reason Start Date Expiration Date V isits Requested Visits Authorized [id number] New Request 05/14/2022 08/13/2023 1 1 Encounter Details Date Type Department Care Team Description 07/01/2022 11:20 AM CDT Office Visit [facility] [address] [facility] [address] [facility] 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 Start Lyrica 25mg at bedtime. After 2-3 days, try increasing to 1 tablet twice daily. After 2 weeks, then you can gradually increase to 50mg twice daily if tolerating. Please give me an update at that point to determine next steps. Follow up 6 weeks documented in this encounter Progress Notes * Carey Rashid DO - 07/01/2022 11:20 AM CDT Pain Clinic Consult Note Referred by: Jolene Levin, DO [address] [facility] [place] [address] Chief Complaint: Chief Complaint Patient presents with Follow-up History of Present Illness: The patient is a very pleasant 76-year-old female with medical history of anterior fusion C3-C6 status post revision, chronic low back pain status post L4-5 microdiskectomy and scoliosis who presentsfor evaluation and management regarding her chronic pain. The patient was previously seen by me over 3 years ago regarding chronic neck issues. Today, reports that she has struggled with low back and predominantly right radicular symptoms. The patient has previously had her care at [facility]. She was seen by Neurosurgery and non-operative management was recommended due to osteoporosis. She is having a second opinion this May. Pain has been present for number of years. She reports that it is constant. Describes the pain as burning and dull in nature. Pain is located in her lower buttock area. Has radiation into her groin and right leg. Rates pain at 8/10 today. She reports her pain is worse with all activities specifically housework, sitting and standing. She reports that she occasionally will care for her grandchild in that has become more difficult. Her this past year. She is moving. She does not know how she can continue to manage her pain and is tearful today. She does endorse some left LE numbness and tingling that has been present for a number of years andfeels that this along with mild weakness has progressed. She denies recent falls. She has been on duloxetine for her chronic pain and this has been increased to 80mg daily. She also utilizes heat, acetaminophen a 1000 mg twice daily and finds this the most helpful. She has tried Tramadol and did not see any benefit. Has also tried Advil without relief. Pain Rating Today: 8/10 Previous Treatments have included: #Therapy: Tried therapy in the past. Tried yoga in the past. #Acupuncture: Tried in the past, can get expensive #Chiropractic Manipulation: Has previously worked with chiropractor, none recently #Psychology: None #Injections: Tried trigger point injections and TOM #Surgery: See above Review of Systems: A 10-point review of systems was completed. Significant symptoms were noted in the above HPI. 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 Past Medical History: Reviewed IMAGING: MR lumbar spine with and without IV contrast November 23, 2017 FINDINGS: Sagittal: Five lumbar-type vertebral bodies. The conus medullaris terminates at the level of the [id number] body. Normal cord signal. Progression of type I endplate degeneration with endplate edemaand enhancement and progression of disc space narrowing at L2-3 and L4-5. Progression of grade 1 anterolisthesis of L2 on L3. Progression of grade 1 anterolisthesis of L4 on L5. Slight progression of thoracolumbar scoliosis convex to the left. The visualized paraspinal structures are unremarkable. Axial: T12-L1: Unremarkable. L1-2: Unremarkable. L2-3: Progression of degenerative changes at L2-3. Progression of broad-based disc bulge. Progression of moderate facet degeneration. Moderate spinal canal narrowing. Mild to moderate bilateral neural foraminal narrowing. L3-4: Broad-based disc bulge. Moderate facet degeneration. Mild bilateral neural foraminal narrowing. New postoperative changes of right hemilaminectomy. L4-5: Progression of facet degeneration. Progression of ligamentum flavum hypertrophy. Progression of endplate degeneration with grade 1 anterolisthesis of L4 on L5. Progression of moderate spinal canal narrowing. Progression of moderate to severe left neural foraminal stenosis. L5-S1: Mild disc bulge. Mild left neural foraminal narrowing. Mild facet degeneration. No change. IMPRESSION: 1. Comparison is made to examination of 01/07/2005. 2. Substantial progression of endplate degeneration, disc space narrowing, and grade 1 anterolisthesis at L2-3 and L4-5 as detailed above. Associated progression of spinal canal and neural foraminal narrowing at these levels. 3. Progression of thoracolumbar scoliosis. 4. Additional degenerative changes are stable. CT cervical spine October 28, 2018 IMPRESSION: 1. No acute fracture or subluxation. Since the prior CT there has been revision anterior spinal fusion surgery with fusion now extending from C3 through C6 with disc spacers. 2. Multilevel residual stenosis as described above. Medications: Reviewed Allergies: Reviewed Exam: Filed Vitals: 07/01/22 1116 BP: 129/77 Pulse: 63 Constitutional: No acute distress, sitting comfortably ENT: Hearing intact to conversation Respiratory: Respirations are non-labored, patient is breathing comfortably on room air Cardiovascular: Regular rate, no evidence of lower extremity edema Musculoskeletal: Gait: Non-antalgic. The patient can walk on their toes and heels without difficulty. Inspection: Visible signs of scoliosis with asymmetry of her shoulder positioning and right iliac crest superior to the left iliac crest Palpation: TTP throughout right low back L4-5 and L5-S1 and SI joint ROM: Stiffness during forward flexion at the lumbar spine, stiffness and pain during lumbar extension Strength: 5/5 during seated HF, KE/KF, ankle DF/PF and great toe extension Special tests: +Seated slump on the right Skin: Decreased sensation to light touch at L3, L4 and L5 dermatomes on the left as compared to theleft. No allodynia. Neurological: Speech clear and fluent Reflexes: 1+/4 at the right patella and achilles. 3+/4 on the left at the patella and achilles Psychiatric: Pleasant, Good eye contact ASSESSMENT: Encounter Diagnoses Name Primary? 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 Consider discussion at follow up pending surgical consultation Medications: -okay to try CBD oil for chronic pain. Discussed medical cannabis program she will consider. -okay to try topical diclofenac to joints and back region -Start Lyrica 25mg twice daily. Can titrate up to 50mg twice daily in the future. The patient will alert me of any concerns. Risks and benefits of this medication were discussed. -agree with duloxetine 80 mg daily. BMP reviewed and wnl on 03/2022 -The patient prefers to refrain from opioids due to sensitivity and lack of benefit. Follow-up: 6 weeks Billing based on: Time 60 minutes total time spent reviewing the patient's records, labs, imaging and IMPORT CUSTOMER SERVICE MANAGER. Time was spent with the patient obtaining the medical history and performing the exam. I spent time utilizing education, counseling and coordination of care during the visit along with medical documentation of the en counter. Carey Rashid DO 07/01/2022, 12:42 PM Pain Management Physical Medicine and Rehabilitation documented in this encounter Plan of Treatment Upcoming Encounters Date Type Department Care Team Description 04/10/2023 8:30 AM ALLIANCES CONSULTANT Appointment [place] [address] [facility] [address] [place] [phone] [place] [address] [place], [place] [id number] 04/15/2023 10:45 AM ALLIANCES CONSULTANT Appointment [facility] [address] [facility] [place] [address] Sin Castorena MD [address] [place], [place] [phone] documented as of this encounter Results * MR Lumbar Spine [...] Bilateral facet hypertrophy. Mild canal stenosis. Similar [id number] left and moderate right foraminal stenosis. L4-5: [...] bulge. Bilateral facet hypertrophy. Mildcanal stenosis. Similar [id number] left and moderate rightforaminal stenosis. L4-5: Disc [...] degeneration(4-83%). Frequency percentages adapted from Estella W, Luradha PH, Waqas B, etal. AJNR AM J Neuroradiol 2015:36:811-16. Carey SANTOS MRI documented in this encounter Visit Diagnoses Diagnosis Chronic right-sided low back pain with right-sided sciatica (HRC)- Primary Radiculopathy of lumbar region Thoracic or lumbosacral neuritis or radiculitis, unspecified Lumbar spondylosis (HRC) Lumbosacral spondylosis without myelopathy Lumbosacral radiculopathy at L3 Thoracic or lumbosacral neuritis or radiculitis, unspecified H/O Spinal surgery Other postprocedural status Radiculopathy of lumbar region Thoracic or lumbosacral neuritis or radiculitis, unspecified documented in this encounter Additional Health Concerns Infection Onset Date Last Indicated Resolved Time 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
--- OUTSIDE RECORDS SUMMARY | 2023-04-05 09:23 | XMS_ITS | Encounter Summary ---
Author Name Unknown Organization [facility] Address [address], [place] [address] Care Team Providers Care Vp Hr Diversity Name Role Phone Carolynn Alvarado MD Primary Care Provider [phone] Reason for Referral * Procedure/Equipment (Routine) - Incomplete Specialty Diagnoses / Procedures Referred By Cecille concepcion Referred To Contact Diagnoses Osteoporosis with current pathological fracture, unspecified osteoporosis type, sequela Age-related osteoporosis without current pathological fracture (HRC) Procedures DXA Bone Density [place] [address] [place] [id number] Referral ID Status Reason Start Date Expiration Date V isits Requested Visits Authorized [id number] Incomplete 10/08/2023 01/06/2025 1 1 Reason for Visit * Reason Comments OSTEOPOROSIS Encounter Details Date Type Department Care Team Description 10/07/2022 9:00 AM CDT Office Visit [facility] [address] [place], [place] [address] Reagan Campbell MD [address] [place] [phone] Osteoporosis with current pathological fracture, unspecified osteoporosis type, sequela (Primary Dx); Age-related osteoporosis without current pathological fracture (HRC) Social History Tobacco Use Types Packs/Day [...] Sign Reading Time Taken Comments Blood Pressure 134/75 10/07/2022 9:06 AM CDT Pulse 69 10/07/2022 9:06 AM CDT Temperature - - Respiratory Rate - - Oxygen Saturation - - Inhaled Oxygen Concentration - - Weight 60.8 kg (134 lb) 10/07/2022 9:06 AM CDT Height 162.6 cm (5' 4) 10/07/2022 9:06 AM CDT Body Mass Index 23 10/07/2022 9:06 AM CDT documented in this encounter Patient Instructions * Patient Instructions* Reagan Campbell MD - 10/07/2022 9:00 AM CDT 24 Hour Urine Collection instruction: Lab will provide you with the container Decide a day you want to collect the urine for 24 hours. On the day of collection, discard the first void urine in the morning. Start collecting all the urine in the provided container for the entire day and over night. Store the urine in the refrigerator after each collection. The next morning when you wake up collect the first void urine in the container and then submit thecontainer to the lab. documented in this encounter Progress Notes * Reagan Campbell MD - 10/07/2022 9:00 AM CDT Endocrine Note: Office visit Date: 10/07/2022 Referring Physician: Carolynn Alvarado MD OSTEOPOROSIS HPI: Michelle Franz is a 76 y.o. pleasant female who presents for evaluation of osteoporosis DEXA 05/2019 that showed T-Score: -2, BMD 0.631 at Femoral neck with FRAX 10 year probability major osteoporotic fracture: 24.6% 10 year probability hip fracture: 8.1% She has required multiple C-spine fusion (x2) and 3rd one in Mar 2020. During second C-spine fusion, poor healing of cadaveric graft prompted referral to assess underlying causes of the bone disorder and referral. In past she had ulnar fracture, and metatarsal fracture that healed well without any issues. Ulnar fracture after a fall from standing height, metatarsal fracture after twisting ankle. Workup showed low 24 hour urine calcium. She was recommended Forteo as a initial start However this was cost prohibitive Therefore, Prolia was started in May of 2022 Prior to that, she was lost to follow-up. due to hemorrhagic stroke.She now lives with her daughter and takes care of her granddaughter with autism. Family history of thyroid / AI disease yes: Son with RA, DTR has Graves FH of bone disorder no Family history of osteoporosis no Interval history: Michelle is here for a follow-up visit. Low back pain has been an issue Neurosurgical evaluation for spinal fusion: She is working with [facility] now. Local Neurosurgerydeclined procedure due to high risk of healing issues in the context of low bone density . No falls or fractures No high changes Having pain in her left leg. Occasional weakness on the left leg No back pain Calcium: Tums 2 tablets daily Vitamin-D: Causes diarrhea. Therefore has not taken it. Exam: BP 134/75 (BP Location: Right Arm, BP Cuff Size: Large) Pulse 69 Ht 5' 4 (1.626 m) Wt 134 lb(60.8 kg) BMI 23.00 kg/m?? Constitutional: No distress Head: Normocephalic. Neck: Healthy spinal surgery scar Cardiovascular: regular rhythm, no tachycardia Respiratory: Lungs clear Gastrointestinal: Bowel sounds are present Neurologic: Normal speech, reflexes normal. Psychiatric: mentation appears normal Spine no tenderness. Kyphoscoliosis Assessment: Michelle Franz is a 76 y.o. female who is here for evaluation of severe osteoporosis 1. Severe osteoporosis 2. Fragility fractures 3. History of multiple cervical spine surgeries Plan: Continue Prolia injections . Every May and December Continue Tums 1 tablet twice daily She will try different formulations for vitamin-D to see if she tolerates them better. Recommendations: Patient Instructions 24 Hour Urine Collection instruction: Lab will provide you with the container Decide a day you want to collect the urine for 24 hours. On the day of collection, discard the first void urine in the morning. Start collecting all the urine in the provided container for the entire day and over night. Store the urine in the refrigerator after each collection. The next morning when you wake up collect the first void urine in the container and then submit thecontainer to the lab. Reagan Campbell MD Endocrinology Service Last Basic Metabolic Panel: Results for orders placed or performed in visit on 07/08/22 FIT Colon Rectal Cancer Screening Result Value Ref Range FIT Specimen 1 Negative Negative Lab Results Component Value Date WBC 8.2 06/26/2022 WBC 9.1 10/30/2021 WBC 8.5 05/18/2021 RBC 4.24 06/26/2022 RBC 3.94 10/30/2021 RBC 4.15 05/18/2021 Hemoglobin 13.2 06/26/2022 Hemoglobin 12.4 10/30/2021 Hemoglobin 12.3 05/18/2021 HCT 39.5 06/26/2022 HCT 37.2 10/30/2021 HCT 38.9 05/18/2021 MCV 93.2 06/26/2022 MCV 94.4 10/30/2021 MCV 93.7 05/18/2021 RDW 12.3 06/26/2022 RDW 12.3 10/30/2021 RDW 13.2 05/18/2021 Platelets 440 06/26/2022 Platelets 389 10/30/2021 Platelets 407 05/18/2021 Lab Results Component Value Date Creatinine 0.70 04/08/2022 BUN 10 04/08/2022 Sodium 141 04/08/2022 Potassium 4.0 04/08/2022 Chloride 103 04/08/2022 CO2 28 04/08/2022 Lab Results Component Value Date Intact PTH 96 04/08/2022 documented in this encounter Plan of Treatment Upcoming Encounters Date Type Department Care Team Description 04/10/2023 8:30 AM CLINICAL TEAM LEAD Appointment [place] [address] [facility] [address] [place] [address] [place] [address] [place], [place] [phone] 04/15/2023 10:45 AM CLINICAL TEAM LEAD Appointment [address] [facility] [place], [place] [phone] Sin Castorena MD [address] [place], [place] [phone] Scheduled Orders Name Type Priority Associated Diagnoses Orde r Schedule DXA Bone Density Spine/Hip Imaging New Routine Osteoporosis with current pathological fracture, unspecified osteoporosis type, sequela Age-related osteoporosis without current pathological fracture (HRC) Expected: 10/08/2023 (Approximate), Expires: 04/09/2024 documented as of this encounter Results * Calcium Urine 24 hr (10/16/2022 10:37 AM CDT) Urine Volume 1,300 mL 10/16/2022 3:48 PM CDT [facility] Calcium, Urine, Random 7.8 mg/dL 10/16/2022 3:48 PM CDT [facility] Calcium, Urine, 24 Hours 101 100 - 300 mg/24 hr 10/16/2022 3:48 PM CDT [facility] Creatinine, Urine, Random 62 >20 mg/dL 10/16/2022 3:48 PM CDT [facility] Urine Non-blood Collection / Unknown 10/16/2022 10:37 AM CDT 10/16/2022 10:38 AM CDT Reagan Campbell MD [facility] [address] [place] [address], [facility] [address] [place] [address], [facility] [phone] documented in this encounter Visit Diagnoses Diagnosis Osteoporosis with current pathological fracture, unspecified osteoporosis type, sequela- Primary Age-related osteoporosis without current pathological fracture (HRC) Senile osteoporosis documented in this encounter Additional Health Concerns Infection Onset Date Last Indicated Resolved Time 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 (+) 11/07/2015 11/07/2015 documented as of this encounter Care Teams Vp Hr Diversity Relationship Specialty Start [place] [address] [address] [place] [address] PCP - General Internal Medicine 11/09/15 documented as of this encounter
--- OUTSIDE RECORDS SUMMARY | 2023-04-05 09:23 | XMS_ITS | Encounter Summary ---
Author Name Unknown Organization [facility] Address [address] [place] [address] Care Team Providers Care Addiction Professional Name Role Phone Carolynn Alvarado MD Primary Care Provider [phone] Encounter Details Date Type Department Care Team Description 10/16/2022 10:40 AM CDT Lab Visit [facility] [address] [place] [phone] Osteoporosis with current pathological fracture, unspecified osteoporosis type, sequela Social History Tobacco Use Types Packs/Day Years [...] Department Care Team Description 04/10/2023 8:30 AM METAL BED ASSEMBLER Appointment [facility] [address] [facility] Medicine [address] [place] [phone] [place] [address] [place] [address] 04/15/2023 10:45 AM METAL BED ASSEMBLER Appointment [place] [id number] [facility] [address] [place] [address] Sin Castorena MD [address] [place] [address] documented as of this encounter Procedures Procedure Name Priority Date/Time Associated Diagnosis Comments CALCIUM UR 24 HR Routine 10/16/2022 10:3 7 AM CDT Osteoporosis with current pathological fracture, unspecified osteoporosis type, sequela documented in this encounter Results * Calcium Urine 24 hr (10/16/2022 10:37 AM CDT) Urine Volume 1,300 mL 10/16/2022 3:48 PM CDT [facility] Calcium, Urine, Random 7.8 mg/dL 10/16/2022 3:48 PM CDT [facility] Calcium, Urine, 24 Hours 101 100 - 300 mg/24 hr 10/16/2022 3:48 PM CDT [facility] Creatinine, Urine, Random 62 >20 mg/dL 10/16/2022 3:48 PM CDT [facility] Urine Non-blood Collection / Unknown 10/16/2022 10:37 AM CDT 10/16/2022 10:38 AM CDT Reagan Campbell MD [facility] [address] [place] [address], [facility] [address] [place] [address], [facility] [phone] documented in this encounter Visit Diagnoses Diagnosis Osteoporosis with current pathological fracture, unspecified osteoporosis type, sequela documented in this encounter Additional Health Concerns Infection Onset Date Last Indicated Resolved Time 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
--- OUTSIDE RECORDS SUMMARY | 2023-04-05 09:23 | XMS_ITS | Encounter Summary ---
Author Name Unknown Organization [facility] Address [address] [place] [address] Care Team Providers Care [employer] Professional Name Role Phone Carolynn Alvarado MD Primary Care Provider Reason for Referral * Procedure/Equipment (Routine) - Incomplete Specialty Diagnoses / Procedures Referred By Cecille concepcion Referred To Contact Procedures [place] [address] [place] [address] Referral ID Status Reason Start Date Expiration Date V isits Requested Visits Authorized [id number] Incomplete 12/20/2022 03/20/2024 1 1 Reason for Visit * Procedure/Equipment (Routine) - Incomplete Specialty Diagnoses / Procedures Referred By Cecille concepcion Referred To Contact Procedures [place] [address] [place] [address] Referral ID Status Reason Start Date Expiration Date V isits Requested Visits Authorized [id number] Incomplete 12/20/2022 03/20/2024 1 1 Encounter Details Date Type Department Care Team Description 12/20/2022 1:20 PM CDT Ancillary Procedure [facility] [address] [place] [address] Social History Tobacco Use Types Packs/Day Years [...] Department Care Team Description 04/10/2023 8:30 AM LEAD INFRASTRUCTURE ARCHITECT Appointment [facility] [address] [facility] Medicine [address] [place] [address] [place] [address] [place] [address] 04/15/2023 10:45 AM LEAD INFRASTRUCTURE ARCHITECT Appointment [address] [place] [address] Sin Castorena MD [address] [place] [address] documented as of this encounter Procedures Procedure Name Priority Date/Time Associated Diagnosis Comments MM MAMMOGRAM SCREENING BILAT W CAD Routine 12/20/2022 1:16 PM CDT documented in this encounter Results * MM Mammogram Screening Bilat W CAD (12/20/2022 1:16 PM CDT) Anatomical Region Laterality Modality Breast Bilateral Mammography Impressions 12/20/2022 1:54 PM CDT : ACR BI-RADS Category 1: Negative RECOMMENDATION: Follow Up Imaging in 12 months - Bilateral The results and recommendations of this examination will be communicated to the patient. Narrative 12/20/2022 1:54 PM CDT MM MAMMOGRAM SCREENING BILAT W CAD performed on 12/20/22 Compared to: 10/01/2021 MM Mammogram Screening Bilat W CAD, 03/13/2020 MM Mammogram Screening Bilat W CAD, and 11/05/2018 MM Mammogram Screening Bilat W CAD ?? FINDINGS: Bilateral screening mammogram was performed with the assistance of Computer-Aided Detection . The breasts have scattered areas of fibroglandular density. There is no radiographic evidence of malignancy. ?? 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
--- OUTSIDE RECORDS SUMMARY | 2023-04-05 09:23 | XMS_ITS | Encounter Summary ---
Author Name Unknown Organization [facility] Address [address] [place] [address] Care Team Providers Care Meeting Specialist Name Role Phone Carolynn Alvarado MD Primary Care Provider [phone] Reason for Visit * Reason Comments Follow-up Encounter Details Date Type Department Care Team Description 11/01/2022 11:00 AM CDT Office Visit [facility] [address] [facility] [place], [place] [address] Sin Castorena MD [address] [place], [place] [id number] Exudative age-related macular degeneration of right eye [...] * Patient Instructions* Leah Allred, COA - 11/01/2022 11:00 AM CDT Control your blood pressure, blood [...] to keep the eye closed or use [id number] artificial tears for comfort. You may see [...] Eye discharge (other than tears/bloody tears) Call [phone] with any problems. documented in this encounter Progress Notes * Sin Castorena MD - 11/01/2022 11:00 AM CDT Last visit with Dr. Castorena 10/04/[address] Vyas 03/07/22 The medications, [...] and consents - Plan - LATRICIA OD #2 11/01/22 - f/u 4 weeks, LATRICIA OD #) [...] discussed Follow up in 4wks, LATRICIA OD #3, injxn only, OCT OU Last DFE: 09/2022 Further details [...] Procedure Notes * Leah Allred COA - 11/01/2022 11:00 AM CDT Intravitreal Injection Operative Report Eye: Right Surgeon: Sin Castorena MD Medicaton: Eylea 0.05 mL (2 mg) Lot number: [id number], Exp 07/15/23 Anesthesia: tetracaine, lidocaine gel 5% povidone iodine [...] Department Care Team Description 04/10/2023 8:30 AM SCRIBING MACHINE OPERATOR Appointment [facility] [id number] [place] [address] [place] [address] [place] [address] [place] [address] 04/15/2023 10:45 AM SCRIBING MACHINE OPERATOR Appointment [facility] [address] [facility]. [place], [place] [address] Sin Castorena MD [address] [place] [address] documented as of this encounter Visit Diagnoses [...] 2 mg 2 mg, Intravitreal, ONCE, On Fri11/01/22 at 1215, For 1 dose, HIGH ALERT medication HAZARDOUS DRUG Administration: Double glove, chemo gown; if no closed-system drug-transfer device (CSTD), include eye protection Must be given by trained nurse (antineoplastic, chemotherapeutic, or cytotoxic medication) Given 11/01/2022 12:02 PM CDT 2 mg Righ t Eye documented in this encounter Additional Health Concerns Infection Onset Date Last Indicated Resolved Time 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 (+) 11/07/2015 11/07/2015 documented as of this encounter Care Teams Meeting Specialist Relationship Specialty Start [place] [address] [place] [place] [address] PCP - General Internal Medicine 11/09/15 documented as of this encounter
--- OUTSIDE RECORDS SUMMARY | 2023-04-05 09:23 | XMS_ITS | Encounter Summary ---
Author Name Unknown Organization [facility] Address [address] [place] [address] Care Team Providers Care Deck Specialist Name Role Phone Carolynn Alvarado MD Primary Care Provider [phone] Encounter Details Date Type Department Care Team Description 10/07/2022 9:50 AM CDT Lab Visit [facility] [address] [place], [place] [id number] Routine general medical examination at health care facility (Primary Dx) Social History Tobacco Use Types [...] Department Care Team Description 04/10/2023 8:30 AM SERVICE STATION CONSOLE OPERATOR Appointment [facility] [address] Family Medicine [address] [place] [phone] [place] [address] [place] [address] 04/15/2023 10:45 AM SERVICE STATION CONSOLE OPERATOR Appointment [address] [facility] [place] [address] Sin Castorena MD [address] [place] [address] documented as of this encounter Procedures Procedure Name Priority Date/Time Associated Diagnosis Comments CONTAINER TEST Routine 10/07/2022 12:58 PM CDT Routine general medical examination at health care facility URINE CONTAINER, 24 HOUR Routine 10/07/2022 12:58 PM CDT Routine general medical examination at health care facility documented in this encounter Results * Urine Container, 24 Hour (10/07/2022 12:58 PM CDT) Container Given Done 10/07/2022 2:00 PM CDT [facility] Other Specimen Type 10/07/2022 12:58 PM CDT 10/07/2022 12:58 PM CDT Reagan Campbell MD LAB_1 [facility] [address] [place] [address], [facility] [phone] documented in this encounter Visit Diagnoses Diagnosis Routine general medical examination at health care facility- Primary Routine general medical examination at a health care facility documented in this encounter Additional Health Concerns Infection Onset Date Last Indicated Resolved Time 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
--- OUTSIDE RECORDS SUMMARY | 2023-04-05 09:23 | XMS_ITS | Encounter Summary ---
Author Name Unknown Organization [facility] Address [address] [place] [address] Care Team Providers Care Online Marketing Specialist Name Role Phone Carolynn Alvarado MD Primary Care Provider [phone] Reason for Visit * Reason Comments Follow-up Encounter Details Date Type Department Care Team Description 12/27/2022 10:45 AM CDT Office Visit [facility] [address] [facility] 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 You may see [...] Eye discharge (other than tears/bloody tears) Call [phone] with any problems. documented in this encounter Progress Notes * Sin Castorena MD - 12/27/2022 10:45 AM CDT The medications, allergies, and past medical and [...] CNV/SHRM, (+) lucency v. 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 Callback precautions discussed Follow up in 6wks, LATRICIA OD #4, injxn only, OCT OU Last DFE: 12/2022 Further details of the management plan can [...] Procedure Notes * Satish Carrillo COA - 12/27/2022 10:45 AM CDT Intravitreal Injection Operative Report Eye: Right Surgeon: Sin Castorena MD Medicaton: Eylea 0.05 mL (2 mg) Lot number: [id number], Exp 04/15/2024 Anesthesia: tetracaine, lidocaine gel 5% povidone iodine [...] Department Care Team Description 04/10/2023 8:30 AM MAINTENANCE SUPERVISOR MECHANICAL Appointment [place] [id number] [address] [place] [address] [place] [address] 04/15/2023 10:45 AM MAINTENANCE SUPERVISOR MECHANICAL Appointment [facility] [address] [place] [address]. 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 Posterior vitreous detachment of both eyes Vitreous degeneration Pseudophakia, both eyes Lens replaced by other means documented in this encounter Administered Medications Inactive Administered Medications - up to 3 most recent administrations Medication Order MAR Action Action Date Dose Rate Site aflibercept (EYLEA) 2 MG/0.05ML prefilled syringe 2 mg 2 mg, Intravitreal, ONCE, On Fri12/27/22 at 1215, For 1 dose, HIGH ALERT medication HAZARDOUS DRUG Administration: Double glove, chemo gown; if no closed-system drug-transfer device (CSTD), include eye protection Must be given by trained nurse (antineoplastic, chemotherapeutic, or cytotoxic medication) Given 12/27/2022 12:09 PM CDT 2 mg Righ t Eye documented in this encounter Additional Health Concerns Infection Onset Date Last Indicated Resolved Time 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
--- OUTSIDE RECORDS SUMMARY | 2023-04-05 09:23 | XMS_ITS | Encounter Summary ---
Author Name Unknown Organization [facility] Address [address] [place] [address] Care Team Providers Care Printer Assistant Name Role Phone Carolynn Alvarado MD Primary Care Provider [phone] Reason for Visit * Reason Comments Follow-up Encounter Details Date Type Department Care Team Description 08/19/2022 10:40 AM CDT Office Visit [facility] [address] [facility] [address] [facility] [place], [place] [address] [place] [address] [place] [id number] Lumbar radiculopathy (Primary Dx); H/O Spinal surgery; Low bone mass Social History Tobacco Use Types Packs/Day Years [...] as of this encounter Progress Notes * Carey Rashid DO - 08/19/2022 10:40 AM CDT Pain Clinic Follow up Note Referred by: Self referral Chief Complaint: Low back and left leg pain Chief Complaint Patient presents with Follow-up Last Seen: 07/01/2022 Interval History: Today, the patient presents for follow-up regarding chronic low back pain and left leg radicular symptoms. She has been mostly followed through [facility]. She has follow-up with Neurosurgery scheduled this week. She underwent an epidural steroid injection through [facility] which was completed two the right L1-2 space via transforaminal approach on August 09, 2022 per chart review. Pain today is rated at 8/10. She locates it to the bilateral low back with radiation to the right anterior thigh. Occasionally she will have some lateral munoz pain to the top of the right foot. She does feel this condition is getting worse. She describes the pain as burning and sharp. Pain is worsespecifically with standing, walking, lifting, bending, twisting, reaching, coughing, sneezing and housework. She finds improvement with heat and rest. She has not noticed significant improvement following her last injection. She denies bowel or bladder changes. She does endorse right leg numbness and tingling along with right leg weakness. She will utilize acetaminophen on and off for benefit as n eeded. History of Present Illness 07/01/2022: The patient is a very pleasant 76-year-old [...] patient has previously had her care at [facility]. She was seen by Neurosurgery and non-operative management was recommended due to osteoporosis. She is having a second opinion this July. Pain has been present for number of [...] tried Advil without relief. Pain Rating Today: 10/24 Previous Treatments have included: #Therapy: Tried therapy [...] walking during the summer. Past Medical History: Reviewed. SPRAY PILOT reviewed 08/19/2022 IMAGING: MR lumbar spine with and without IV contrast November 23, 2017 FINDINGS: Sagittal: Five lumbar-type vertebral bodies. The conus medullaris terminates at the level of the S2mwajpvboz body. Normal cord signal. Progression of type [...] described above. Medications: Reviewed Allergies: Reviewed Exam: There were no vitals filed for this visit. Constitutional: No acute distress, sitting comfortably ENT: Hearing intact to conversation Musculoskeletal: Gait: Non-antalgic. The patient can walk on their toes and heels without difficulty. Inspection: Visible signs of scoliosis with asymmetry of her shoulder positioning and right iliac crest superior to the left iliac crest Palpation: TTP throughout right low back L4-5 and L5-S1 and SI joint Strength: 5/5 during seated HF, KE/KF, ankle DF/PF and great toe extension Special tests: +Seated slump on the right Skin: Decreased sensation to light touch at L3, L4 and L5 dermatomes on the left as compared to theleft. No allodynia. Neurological: Speech clear and fluent Psychiatric: Pleasant, Good eye contact ASSESSMENT: Encounter Diagnoses Name Primary? Lumbar radiculopathy Yes H/O Spinal surgery Low bone mass PLAN: Additional Work-up: -Agree with follow up with Neurosurgery Therapy/Exercise: Has completed in the past. Medications: -okay to try CBD oil for chronic pain. Discussed medical cannabis program she will consider. -okay to try topical diclofenac to joints and back region -Increase Lyrica to 50mg twice daily. She is tolerating this medication. The patient will alert me of any concerns. Risks and benefits of this medication were discussed. -agree with duloxetine 80 mg daily. BMP reviewed and wnl on 03/2022 -The patient prefers to refrain from opioids due to sensitivity and lack of benefit. Injections: Recently underwent right L1-2 TFESI at [facility]. Concern that some of her symptoms are in fact related to the L3 nerve on the right. 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 Hold on any injections as she recently underwent TOM 10 days ago. Follow-up: 6 weeks Billing based on: Time >40 minutes total time spent reviewing the patient's records, labs, imaging and SPRAY PILOT. Time was spent with the patient obtaining the medical history and performing the exam. I spent time utilizing education, counseling and coordination of care during the visit along with medical documentation of the encounter. Carey Rashid DO 08/19/2022, 4:56 PM Pain Management Physical Medicine and Rehabilitation documented in this encounter Plan of Treatment Upcoming Encounters Date Type Department Care Team Description 04/10/2023 8:30 AM TAX PREPARER Appointment [facility] [address] Family Medicine [address] [place] [address] [place] [address] [place] [address] 04/15/2023 10:45 AM TAX PREPARER Appointment [address] [facility] [place], [place] [address] Sin Castorena MD [address] [place] [address] documented as of this encounter Visit Diagnoses Diagnosis Lumbar radiculopathy- Primary Thoracic or lumbosacral neuritis or radiculitis, unspecified H/O Spinal surgery Other postprocedural status Low bone mass Disorder of bone and cartilage, unspecified documented in this encounter Additional Health Concerns Infection Onset Date Last Indicated Resolved Time MRSA Comment:06/24/14 narbeatriz (+) 11/07/2015 11/07/2015 documented as of this encounter Care Teams Printer Assistant Relationship Specialty [place] [address] [address] [place] [address] PCP - General Internal Medicine 11/09/15 documented as of this encounter
--- OUTSIDE RECORDS SUMMARY | 2023-04-05 09:23 | XMS_ITS | Encounter Summary ---
Author Name Unknown Organization [facility] Address [address] [place] [address] Care Team Providers Care Embroidery Supervisor Name Role Phone Carolynn Alvarado MD Primary Care Provider [phone] Reason for Visit * Reason Comments Eye Problem Encounter Details Date Type Department Care Team Description 12/11/2022 9:00 AM CDT Office Visit [facility] [address] [facility] [address] [place] [address] Balwinder Sanchez, PAYogiC [address] [facility] [place] [address] Conjunctivitis of left eye, unspecified conjunctivitis type; Red eye Social History Tobacco Use Types Packs/Day [...] Sign Reading Time Taken Comments Blood Pressure 117/63 12/11/2022 9:06 AM CDT Pulse 96 12/11/2022 9:06 AM CDT Temperature 36.8 ??C (98.2 ??F) 12/11/2022 9:06 AM CD T Respiratory Rate 16 12/11/2022 9:06 AM CDT Oxygen Saturation 98% 12/11/2022 9:06 AM CDT Inhaled Oxygen Concentration - - Weight - - Height - - Body Mass Index - - documented in this encounter Progress Notes * Balwinder Sanchez PA-C - 12/11/2022 9:00 AM CDT Patient presents with left eye redness. Noted this morning she woke up with her eye matted shut. She notes it is sore and itchy. Patient requests an excuse letter for work/school: No Patient presents to urgent care complaining of left eye redness and mattery. She woke up with it this morning. She describes her eye is slightly itchy. She denies visual changes. She denies headache or fever. Remainder review of systems is negative. Past Medical History: Patient Active Problem List [...] of right hip Vitamin D deficiency (HRC) Adverse Drug Reactions: Lisinopril Medications: DULoxetine, LORazepam, acetaminophen, amLODIPine, atenolol, calcium citrate-vitamin D,cholecalciferol, clobetasol, desipramine, diclofenac, famotidine, fluticasone propionate, methocarbamol, pregabalin, tobramycin, and triamcinolone acetonide Family History: Family History Problem Relation Age of Onset [...] Negative Family History Blindness Negative Family History Social History: Social History Tobacco Use Smoking status: Never Smokeless tobacco: Never Vaping Use Vaping Use: Never used Substance Use Topics Alcohol use: No Drug use: No Review of Systems: All systems were reviewed and found to be negative except as noted above. OBJECTIVE: General: NAD Skin: Mucous membranes are moist, no sign of dehydration. Head: Normocephalic. Eyes: PERRLA, full EOM. External exams normal. Left sclera and conjunctiva is mildly erythemic withwhite exudate. Ears: Normal pinnae, canals. TM's:[normal] Nose: Patent, without deformity. Throat: Moist mucous membranes without lesions, erythema, or exudate. Respiratory: Normal respiratory effort. Lungs are clear with good breath sounds. Heart: RR without murmurs, rubs, or gallops. Abdomen: The abdomen was flat, soft and nontender without guarding rebound or masses. Vital Signs: BP 117/63 (BP Location: Right Arm, BP Cuff Size: Regular) Pulse 96 Temp 36.8 ??C (98.2 ??F) (Tympanic) Resp 16 SpO2 98% Orders Placed This Encounter tobramycin (TOBREX) 0.3 % eye drop solution Labs: No results found for any visits on 12/11/22. ASSESSMENT: 1. Conjunctivitis of left eye, unspecified conjunctivitis type 2. Red eye Medical Decision Makin76 year old female presenting with left eye redness and exudate. Physical exam shows erythema to the sclera and conjunctiva. She does have a mild amount of exudate left eye. Patient was placed on Tobrex eyedrops to be used as directed. She should return to urgent care with any ongoing or worsening of her symptoms. PLAN: Orders Placed This Encounter tobramycin (TOBREX) 0.3 % eye drop solution There are no Patient Instructions on file for this visit. Orders Placed This Encounter Medications tobramycin (TOBREX) 0.3 % eye drop solution Sig: Place 2 Drops into both eyes every 4 hours for 5 days. Dispense: 5 mL Refill: 0 RTC p.r.n. Total visit time of 25 minutes. documented in this encounter Nursing Notes * Christianne Franz RN - 12/11/2022 9:00 AM CDT Patient presents with left eye redness. Noted this morning she woke up with her eye matted shut. She notes it is sore and itchy. Patient requests an excuse letter for work/school: No documented in this encounter Plan of Treatment Upcoming Encounters Date Type Department Care Team Description 04/10/2023 8:30 AM CLINICAL COUNSELOR Appointment [facility] [address] [facility] Medicine [address] [place] [address] [place] [address] [place] [address] 04/15/2023 10:45 AM CLINICAL COUNSELOR Appointment [facility] [address] [facility]. 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
--- OUTSIDE RECORDS SUMMARY | 2023-04-05 09:23 | XMS_ITS | Encounter Summary ---
Author Name Unknown Organization [facility] Address [address], [place] [address] Care Team Providers Care Hvac Project Engineer Name Role Phone Carolynn Alvarado MD Primary Care Provider [phone] Reason for Visit * Reason Comments NAIL PROBLEM Right great toenail removal Encounter Details Date Type Department Care Team Description 11/05/2022 10:30 AM CDT Office Visit [facility] [address] Podiatric MedSurg [address] [place] [address] Tra Mullins, DPM [address] [place], [place] [address] Onychomycosis (Primary Dx); Great toe pain, unspecified laterality Social History Tobacco Use Types Packs/Day Years [...] this encounter Patient Instructions * Patient Instructions* Gillian David RN - 11/05/2022 10:30 AM CDT Toenail Procedure Soaking Instructions: -Starting tomorrow, soak affected foot in lukewarm water with mild soap or Epsom Salts (One Tbsp. Epsom Salt per one quart of water). -Soak your foot for 10 minutes twice a day (or 20 minutes once a day), for 2 weeks -After you are done soaking, apply Bacitracin or Neosporin to the affected area of the nail bed. -Cover with gauze and paper tape or a cloth band aid. -Return for a follow up appointment in 2 weeks ( NEEDED). -Activity as tolerated. Wear loose fitting shoes. -Healing can take 4-6 weeks. -You may return to work/ school the same day. -CALL YOUR DOCTOR IF: Signs of infection, green drainage, or have a fever >101 degrees. -Podiatry nurse triage line: [phone] -If you're having pain you can take Tylenol or Ibuprofen as needed - If you are having a permanent nail procedure (P&A) please avoid ocean and lakes for 4 weeks and pools for 1 week -If you are having a temporary procedure please avoid ocean, lakes, and pools for 1 week documented in this encounter Progress Notes * Tra Mullins DPM - 11/05/2022 10:30 AM CDT [facility] PROGRESS NOTE NAME: Michelle Franz CSN: [id number] DATE OF VISIT: 11/05/2022 Chief Complaint Patient presents with NAIL PROBLEM Right great toenail removal SUBJECTIVE: Patient presents to clinic today with a complaint of thickened dystrophic right hallux nail. She would like to have the nail removed. MEDICATIONS: Reviewed today in [facility] ALLERGIES: Reviewed today in [facility] Past medical history, Past surgical history, Social [...] have pain, infection and regrowth (10% chance). Patient does consent to the procedure. After betadine prep, the base of the right great toe was injected with 3cc of 2% Lidocaine. Tourniquet applied and the right great toe nail was then avulsed. Phenol was then applied to the exposed nail matrix area for 3 minutes. This was followed by an alcohol flush, bacitracin and a dressing. The tourniquet was removed. Patient was given soaking instructions. The patient will follow up p.r.n. Tra Mullins DPM documented in this encounter Plan of Treatment Upcoming Encounters Date Type Department Care Team Description 04/10/2023 8:30 AM MARINE PILOT Appointment [place] [address] Family Medicine [address] [place] [address] [place] [address] [place] [address] 04/15/2023 10:45 AM MARINE PILOT Appointment [place] [address] Ret[address] [facility] 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
[2023-04-05 09:24] LABS: Basophils Percent Auto 0.3 % (0.0-3.0); Eosinophils Percent Auto 2.1 % (0.0-7.0); Hematocrit 30.6 % (33.0-51.0); Hemoglobin* 9.8 gm/dL (12.0-16.0); Immature Granulocytes Pct Auto 0.6 %; Lymphocytes Percent Auto 14.3 % (20-44); Mean Corpuscular HGB Conc 32 gm/dL (32-36); Mean Corpuscular Hemoglobin 31 pg (26-34); Mean Corpuscular Volume 96 fL (80-100); Neutrophils Percent Auto 73.7 % (42.0-72.0); Platelet Count* 463 K/uL (140-440); Red Blood Count 3.19 m/uL (4.00-5.20); White Blood Count* 15.04 K/uL (4.50-11.00)
--- OUTSIDE RECORDS SUMMARY | 2023-04-05 09:24 | XMS_ITS | Encounter Summary ---
Author Name Unknown Organization [facility] Address [address] [place] [address] Care Team Providers Care Mandrel Cleaner Name Role Phone Carolynn Alvarado MD Primary Care Provider [phone] Reason for Visit * Reason Comments Injection * Procedure/Equipment (Routine) - Authorized Specialty Diagnoses / Procedures Referred By Cecille concepcion Referred To Contact Diagnoses Osteoporosis with current pathological fracture, unspecified osteoporosis type, sequela Reagan Campbell MD [address] [place] [id number] Referral ID Status Reason Start Date Expiration Date V isits Requested Visits Authorized [id number] Authorized 04/16/2022 07/16/2023 2 2 Encounter Details Date Type Department Care Team Description 05/23/2022 10:00 AM SOFTWARE PROJECT MANAGER Nursing Visit [facility] [address] [place] [address] Nurse [facility] Osteoporosis with current pathological fracture, unspecified [...] encounter Progress Notes * Matt Mtz - 05/23/2022 10:00 AM CST Prolia Injection O: Per Dr. Campbell to administer Prolia 60mg/mL injection. D: Verified patient insurance prior authorization was completed. Prolia 60mg/mL administered subcutaneously. A: No symptoms noted at injection site. R: Patient tolerated injection and informed to call with symptoms. WARE PROJECT MANAGER documented in this encounter Plan of Treatment Upcoming Encounters Date Type Department Care Team Description 04/10/2023 8:30 AM SOFTWARE PROJECT MANAGER Appointment [place] [address] Family Medicine [address] [place] [address] [place] [address] [place] [address] 04/15/2023 10:45 AM SOFTWARE PROJECT MANAGER Appointment [address] [facility] [place], [place] [address] Sin Castorena MD [address] [place] [address] Scheduled Referrals Name Type Priority Associated Diagnoses Orde r Schedule Injection Scheduling Referral Routine Osteoporosis with current pathological fracture, unspecified osteoporosis type, sequela Ordered: 04/16/2022 documented as of this encounter Visit Diagnoses [...] mg Left Arm Given 05/23/2022 10:15 AM SOFTWARE PROJECT MANAGER 60 mg L eft Arm documented in this encounter Additional Health Concerns Infection Onset Date Last Indicated Resolved Time 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 (+) 11/07/2015 11/07/2015 documented as of this encounter Care Teams Mandrel Cleaner Relationship Specialty [place] [address] [address] [place] [address] PCP - General Internal Medicine 11/09/15 documented as of this encounter
--- OUTSIDE RECORDS SUMMARY | 2023-04-05 09:24 | XMS_ITS | Encounter Summary ---
Author Name Unknown Organization [facility] Address [address] [address] Care Team Providers Care Medical Leader Name Role Phone Carolynn Alvarado MD Primary Care Provider [phone] Reason for Visit * Reason Comments Refill fluticasone propiona te (FLONASE) 50 MCG/ACT nasal solution [Pharmacy Med Name: FLUTICASONE 50MCG NASAL SP (120) RX] Encounter Details Date Type Department Care Team Description 06/13/2022 Refill [facility] [address] [place] [address] [place] [address] [place] [address] Refill (fluticasone propionate (FLONASE) 50 MCG/ACT nasal solution [Pharmacy Med Name: FLUTICASONE 50MCG NASAL SP (120) RX]) Social History Tobacco Use Types Packs/Day Years [...] as of this encounter Nursing Notes * Antwon Blunt RN - 06/17/2022 6:53 PM CDT Resent prescription to requesting pharmacy as 90 day supply. Requested Prescriptions Pending Prescriptions Disp Refills ??? fluticasone propionate (FLONASE) 50 MCG/ACT nasal solution [Pharmacy Med Name: FLUTICASONE 50MCG NASAL SP (120) RX] 48 g 3 Sig: PLACE 2 SPRAYS INTO BOTH NOSTRILS DAILY. DECREASE TO 1 SPRAY PER NOSTRIL DAILY IF SYMPTOMS CONTROLLED * Interface, Out Surescripts Prov Query - 06/13/2022 11:45 AM CDT fluticasone propionate (FLONASE) 50 MCG/ACT nasal solution [Pharmacy Med Name: FLUTICASONE 50MCG NASAL SP (120) RX] Medication started: 06/13/2022 Last ordered by CAROLYNN ALVARADO: 06/13/2022 (0 days ago) QTY: 16, Refills: 11, Sig: place 2 spraysinto both nostrils daily. decrease to 1 spray per nostril daily if symptoms controlled (unchanged) -> The request contains a note from the pharmacy. -> Refill x 9 months (until due for an office visit) -> Calculate the quantity and number of refills manually. Last qualifying visit: 03/14/2022 (with CAROLYNN ALVARADO) Next scheduled visit: None Fashion Project [employer] Embedded Refills, Reference: [id number], 06/13/2022 11:45:42 AM CDT, Pool: RAYA GANNON REFILL ([id number]) documented in this encounter Plan of Treatment Upcoming Encounters Date Type Department Care Team Description 04/10/2023 8:30 AM PATENT CLERK Appointment [place] [address] Family Medicine [address] [place] [phone] [place] [address] [place] [address] 04/15/2023 10:45 AM PATENT CLERK Appointment [address] [facility]. [place], [place] [id number] Sin Castorena MD [address] [place], [place] [phone] documented as of this encounter Visit Diagnoses Not on filedocumented in this encounter Additional Health Concerns Infection Onset Date Last Indicated Resolved Time MRSA Comment:06/24/14 nares (+) 11/07/2015 11/07/2015 documented as of this encounter Care Teams Medical Leader Relationship Specialty Start [place] [address] [address] [place] [address] PCP - General Internal Medicine 11/09/15 documented as of this encounter
--- OUTSIDE RECORDS SUMMARY | 2023-04-05 09:24 | XMS_ITS | Encounter Summary ---
Author Name Unknown Organization [facility] Address [address] [place] [address] Care Team Providers Care Clay Miner Name Role Phone Carolynn Alvarado MD Primary Care Provider [phone] Encounter Details Date Type Department Care Team Description 12/08/2018 Refill Order [facility] [address] [place], [place] [id number] [place] [address] [place], [place] [address] Social History Tobacco Use Types Packs/Day Years Used Date Smoking Tobacco: Never Smokeless Tobacco: Never Alcohol Use Standard Drinks/Week Comments No 0 (1 standard drink = 0.6 oz pur e alcohol) PHQ-2 Answer Date Recorded PHQ-2 Score 0 07/11/2018 Sex and Gender Information Value Date Recorded Sex Assigned at Not on file Gender Identity Not on file Sexual Orientation Not on file documented as of this encounter Plan of Treatment Upcoming Encounters Date Type Department Care Team Description 04/10/2023 8:30 AM BEACH ATTENDANT Appointment [place] [address] Family Medicine [address] [place] [phone] [place] [address] [place] [address] 04/15/2023 10:45 AM BEACH ATTENDANT Appointment [facility] [address] [facility] 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
--- OUTSIDE RECORDS SUMMARY | 2023-04-05 09:24 | XMS_ITS | Encounter Summary ---
Author Name Unknown Organization [facility] Address [address] [place] [address] Care Team Providers Care Group Care Worker Name Role Phone Carolynn Alvarado MD Primary Care Provider [phone] Encounter Details Date Type Department Care Team Description 04/08/2022 11:20 AM AUTO SERVICE INSTRUCTOR Lab Visit [place] [address] [place], [place] [address] Osteoporosis with current pathological fracture, unspecified osteoporosis [...] Department Care Team Description 04/10/2023 8:30 AM AUTO SERVICE INSTRUCTOR Appointment [place] [address] Family Medicine [address] [place] [phone] [place] [address] [place] [address] 04/15/2023 10:45 AM AUTO SERVICE INSTRUCTOR Appointment [address] [facility] [address] Sin Castorena MD [address] [place] [address] documented as of this encounter Procedures Procedure Name Priority Date/Time Associated Diagnosis Comments VITAMIN D 25-HYDROXY, TOTAL Routine 04/08/2022 10:25 AM AUTO SERVICE INSTRUCTOR Osteoporosis with current pathological fracture, unspecified osteoporosis type, sequela INTACT PTH Routine 04/08/2022 10:25 AM AUTO SERVICE INSTRUCTOR Osteoporosis with current pathological fracture, unspecified osteoporosis type, sequela BASIC METABOLIC PANEL Routine 04/08/2022 10:25 AM AUTO SERVICE INSTRUCTOR Osteoporosis with current pathological fracture, unspecified osteoporosis type, sequela PHOSPHORUS Routine 04/08/2022 10:25 AM AUTO SERVICE INSTRUCTOR Osteoporosis with current pathological fracture, unspecified osteoporosis type, sequela documented in this encounter Results * (ABNORMAL) Vitamin D 25-Hydroxy, Total (04/08/2022 10:25 AM AUTO SERVICE INSTRUCTOR) Vitamin D, 25-OH, Total 26(L) 30 - 80 ng/mL 04/08/2022 8:20 PM AUTO SERVICE INSTRUCTOR [facility] Blood Venipuncture / Unknown 04/08/2022 10:25 AM AUTO SERVICE INSTRUCTOR 04/08/2022 10:25 AM AUTO SERVICE INSTRUCTOR Narrative [facility] - 04/08/2022 8:20 PM AUTO SERVICE INSTRUCTOR Expected values Deficiency: <20 ng/mL Insufficiency: 20-29 ng/mL Optimum: 30-80 ng/mL Possible toxicity: >80 ng/mL Reagan Campbell MD LAB_1 [facility] [address] [place], [place] [address] * Intact PTH (04/08/2022 10:25 AM AUTO SERVICE INSTRUCTOR) Intact PTH 96 10 - 100 pg/mL 04/08/2022 8:02 PM AUTO SERVICE INSTRUCTOR [facility] Blood Venipuncture / Unknown 04/08/2022 10:25 AM AUTO SERVICE INSTRUCTOR 04/08/2022 10:25 AM AUTO SERVICE INSTRUCTOR Reagan Campbell MD LAB_1 [facility] [address] [place], [place] [address] * Phosphorus (04/08/2022 10:25 AM AUTO SERVICE INSTRUCTOR) Phosphorus 3.2 2.3 - 4.7 mg/dL 04/08/2022 12:01 PM [facility] Blood Venipuncture / Unknown 04/08/2022 10:25 AM AUTO SERVICE INSTRUCTOR 04/08/2022 10:25 AM AUTO SERVICE INSTRUCTOR Reagan Campbell MD LAB_1 Performing Organization Address [facility] Co de Phone Number [facility] [address] [place] [address] [phone] * Basic Metabolic Panel (04/08/2022 10:25 AM AUTO SERVICE INSTRUCTOR) Sodium 141 136 - 145 mmol/L 04/08/2022 12:01 PM [facility] Potassium 4.0 3.5 - 5.1 mmol/L 04/08/2022 12:01 PM [facility] Chloride 103 98 - 109 mmol/L 04/08/2022 12:01 PM [facility] CO2 28 20 - 29 mmol/L 04/08/2022 12:01 PM [facility] Anion Gap 10 7 - 16 mmol/L 04/08/2022 12:01 PM [facility] Calcium 9.2 8.4 - 10.4 mg/dL 04/08/2022 12:01 PM [facility] BUN 10 7 - 26 mg/dL 04/08/2022 12:01 PM [facility] Creatinine 0.70 0.55 - 1.02 mg/dL 04/08/2022 12:01 PM [facility] Glucose 78 70 - 100 mg/dL 04/08/2022 12:01 PM [facility] Comment:The given reference range is for the fasting state. Non-fasting reference range for glucose is 70 - 180 mg/dL. Hours Fasting 2 04/08/2022 12:01 PM [facility] GFR, Estimated >60 >60 mL/min/1.7 3m2 04/08/2022 12:01 PM [facility] Blood Venipuncture / Unknown 04/08/2022 10:25 AM AUTO SERVICE INSTRUCTOR 04/08/2022 10:25 AM AUTO SERVICE INSTRUCTOR Reagan Campbell MD LAB_1 [facility] [address] [place] [address], [facility] [phone] documented in this encounter Visit Diagnoses Diagnosis Osteoporosis with current pathological fracture, unspecified osteoporosis type, sequela documented in this encounter Additional Health Concerns Infection Onset Date Last Indicated Resolved Time MRSA Comment:06/24/14 nares (+) 11/07/2015 11/07/2015 documented as of this encounter Care Teams Group Care Worker Relationship Specialty Start [place] [address] [address] [place] [address] PCP - General Internal Medicine 11/09/15 documented as of this encounter
--- OUTSIDE RECORDS SUMMARY | 2023-04-05 09:24 | XMS_ITS | Encounter Summary ---
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 You may see [...] Eye discharge (other than tears/bloody tears) Call [phone] with any problems. documented in this encounter Progress Notes * Sin Castorena MD - 06/28/2022 10:45 AM CDT Last visit with Dr. Castorena 05/28/[address] 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 - [...] Follow up in 4 week, LORRAINE OD #5, injxn only, OCT on arrival Last DFE: 06/2022 Further [...] documented in this encounter Procedure Notes * [place] - 06/28/2022 10:45 AM CDT Intravitreal Injection Operative Report Eye: Right Surgeon: Sin Castorena MD Medicaton: Avastin 0.05 mL (1.25mg) Lot number: [id number], Exp 09/28/2022 Anesthesia: tetracaine, akten 5% povidone iodine drop [...] Department Care Team Description 04/10/2023 8:30 AM DONOR SERVICES TECHNICIAN Appointment [place] [address] Family Medicine [address] [place] [address] [place] [address] [place] [address] 04/15/2023 10:45 AM DONOR SERVICES TECHNICIAN Appointment [facility] [address] [facility] 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
--- OUTSIDE RECORDS SUMMARY | 2023-04-05 09:24 | XMS_ITS | Encounter Summary ---
Author Name Unknown Organization [facility] Address [address] [address] Care Team Providers Care Chef Manager Name Role Phone Carolynn Alvarado MD Primary Care Provider [phone] Reason for Visit * Reason Comments Follow-up Medicare Annual Wellness Sinus Problem Encounter Details Date Type Department Care Team Description 06/13/2022 10:30 AM CDT Office Visit [facility] [address] [place] [address] [place]ynn Alvarado [place] [id number] [place] [id number] Encounter for Medicare annual wellness exam (Primary Dx); Mixed hyperlipidemia; Essential hypertension; Vitamin D deficiency; Acute non-recurrent maxillary sinusitis; Aneurysm of ascending aorta without rupture; Chronic neck and back pain; Lymphocytosis; Screening for thyroid disorder Social History Tobacco Use Types Packs/Day Years [...] Sign Reading Time Taken Comments Blood Pressure 130/77 06/13/2022 10:30 AM CDT Pulse 82 06/13/2022 10:30 AM CDT Temperature - - Respiratory Rate - - Oxygen Saturation - - Inhaled Oxygen Concentration - - Weight 59.8 kg (131 lb 12.8 oz) 023 10:30 AM CDT Height 162.6 cm (5' 4) 06/13/2022 10:3 0 AM CDT Body Mass Index 22.62 06/13/2022 10:30 AM CDT documented in this encounter Patient Instructions * Patient Instructions* Carolynn Alvarado MD - 06/13/2022 10:30 AM CDT Annual Wellness Visit Summary Sinus Infection Begin doxycycline twice daily for 7 days - take probiotic while taking antibiotic Begin prednisone 20 mg daily in AM with food for 5 days. DO NOT take NSAIDS (Ibuprofen, Aleve, Advil, Motrin etc) while taking prednisone Can alternate with Tylenol - 500-1000 every 6 hours as needed If not improving in 5-7 days, OR if worsening (persistent fever > 101, cough with sputum, shortness of breath, new chest pain etc) please return to clinic or call FIT stool test Mammogram in September Your care team is recommending the following tests, procedures or services. Some of these recommendations may not be fully covered by Medicare or your insurance. If you have questions, check with your insurance to determine coverage before completing these services. Health Maintenance Due Health Maintenance Due Topic Date Due Zoster/Shingles (1 of 2) Never done FIT Colon Cancer Screening 06/01/2022 If your Medicare Welcome or Annual Wellness Visit is showing you are due in the above list, this will be updated after this visit. You had this completed today and are not due for another year. Take charge -- steps to prevent falls at home Is your home fall-proof? Many household items can be hazards. For example, lamp or telephone cords can easily trip you up. Make sure they are safely out of your path and general walkways. Also, throwrugs can slide when you walk on them and set you off balance. You???re safer if rugs are secured toyour floors and carpeting is attached at the edges. Clear the way It???s important to ensure that your home is free of clutter and that you can move around with ease. These types of safety measures can help keep you from accidental falls and injuries. Falls are oneof the leading reasons for senior hospital admissions due to injuries which often result in permanent disabilities or . As a result, many senior home safety experts suggest against throw rugs asthey increase the risk of seniors having falls. Safety measures Use this safety checklist as you move through your home. Try to check off most or all of these precautions. If you cannot, take steps to ensure your health and safety! All rooms are well-lit and light switches are easily within your reach. Handrails are securely fastened on all stairways. Stairways are well-lit and step edges are clearly visible. Light switches are easy to reach and placed both at the top and bottom of stairwells. Doorways are wide enough to move through easily. All entryways are free of tripping hazards. Chairs and couches are easy to get in and out of. Furniture is well-arranged and easy to walk around. Furniture is strong enough to support you if you lean on or against it. Kitchen cupboards are easy for you to reach without having to stand on a chair. Your bed is easy to get into and out of. The pathway between your bedroom and bathroom is free of clutter. Closet shelves are easy for you to reach without having to stand on a chair. A bath mat or nonskid tread is secured in your bathtub and shower. Grab bars are securely fastened by your bathtub and toilet. Your toilet is easy for you to get on and off. Outside walkways and steps are in good repair and are slip-resistant. ?? 2001 [employer]. P/SENIORS /#[id number] [facility] - [facility] [address] [address] [facility] [address] [address] [facility]: [facility] [address] [place] [address] [facility] [address] [address] Phone: [phone] [facility] 7th Floor, [address] [place] [address] [facility] [address] [place] [address] [facility] - [facility] ([facility]) [address] [place] [address] [facility] [address] [place] [address] [facility] [address] [place] [address] [facility] [address] [place] [address] [facility] 7th Floor, [address] [place] [address] Learning About Eating More Fruits and Vegetables What are some quick tips for eating more fruits and vegetables? We're all encouraged to eat more fruits and vegetables. Yet it can seem like one more chore on the daily to-do list. But you can add color and crunch to your meals--and lots of nutrition--with these quick tips. Brighten up your breakfast. Add sliced fruit or frozen berries to your yogurt, pancakes, or cereal. Blend fresh or frozen fruit, veggies, and yogurt with a little fruit juice, and you've got a tasty smoothie. Make your scrambled eggs a gourmet treat by adding onions, celery, and morin peppers. Bake up some bran muffins with grated carrots added into the mix. Make a livelier lunch. Jazz up tuna or chicken salad with apple chunks, celery, or grapes--or all of them! Add cucumbers, avocado slices, tomatoes, and lettuce to your sandwiches. Kick up the flavor of grilled cheese sandwiches with spinach and tomatoes. Puree some cooked carrots or squash to add to tomato soup. Add delicious veggies to dinner. Give more color and taste to salads. Stir in red cabbage, carrots, and morin peppers. Top salads with dried cranberries or raisins. Melgar your salad with orange sections or strawberries. Keep a bag or two of frozen vegetables ready to pull out of the freezer for a side dish. Spice up spaghetti and meatballs with mushrooms and morin peppers. Roast vegetables like cauliflower or squash in the oven with olive oil to bring out their flavor. Season your veggie dish with herbs like basil and rosie and a splash of lemon juice and olive oil. Grab some healthy snacks on the go. Scoop up an apple, banana, or plum for a quick snack. Cut up raw fruits and veggies to keep in your fridge. Grapes, oranges, carrots, and celery are great choices. They'll be ready for a quick snack or an after- school treat. Dip raw vegetables in hummus or peanut butter. Keep dried fruit on hand for an easy take with you snack. Make something sweet--and healthy. Try baked apples or pears topped with cinnamon and honey for a delicious dessert. Make chocolate chip cookies even better with grated carrots added to the mix. Where can you learn more? 1. Go to https://www.[employer]/healthlibrary. 2. Enter F050 in the search box. Current as of: July 23, 2021 Content Version: 13.4 ?? [employer]. Care instructions adapted under license by your healthcare professional. If you have questions about a medical condition or this instruction, always ask your healthcare professional. [employer] disclaims any warranty or liability for your use of this information. documented in this encounter Progress Notes * Carolynn Alvarado MD - 06/13/2022 10:30 AM CDT Medicare Annual Wellness Visit Subjective/Historical: Michelle Franz is a 76 y.o. old female Chief Complaint Patient presents with Follow-up Medicare Annual Wellness Sinus Problem Current Concerns: MEDICARE ANNUAL WELLNESS CONCERNS 06/13/2022 04/26/2021 In general, would you say your health is: - - In general, would you say your dental health is: Fair Fair Do you or any of your family members have any concerns about your memory? No No Does urination or leaking urine cause any problems with your daily activities or sleep? - - Do you have difficulty hearing? - - Do you have concerns about your sexual health? - - How many servings of fruits and vegetables do you eat a day? 0 to 1 2 to 4 Do you get at least 2 1/2 hours of physical activity in an average week? No - Do you have anyone nearby who can help you when needed? - - Do you have difficulty doing any of the following activities? - No difficulties Do you have someone to help you with the activities that are difficult? - - Do you miss taking medicine or skip a dose more than once a week? - - Do you feel unsteady when walking? - - Do you have rugs (not carpet) in your home? Yes Yes Have you had any auto accidents in the last 12 months while you were driving? - - Do you always fasten your seat belt when you are in an automobile? - - Do you take illegal drugs or use prescription medications for reasons other than prescribed by a doctor? - - Do you have concerns about your finances? - Yes Do you ever worry you'll run out of food or medicines before you have money to buy more? - - 06/13/2022 04/26/2021 Flowsheet Report Patient has no data for this report Flowsheet Report Patient has no data for this report Flowsheet Report Review Flowsheet (More Data Exists) PHQ-9 06/13/2022 03/14/2022 11/28/2021 PHQ-9 Score Total 7 5 4 Q1: Loss of Int/Pleas 1 0 1 Q2: Depressed mood 1 1 1 Q3: Sleep problems 2 2 1 Q4: Tired/Low Energy 3 2 1 Q5: Appetite change 0 0 0 Q6: Feelings of failure 0 0 0 Q7: Concentration Prob 0 0 0 Q8: Slow or Restless 0 0 0 Q9: Thought Self Harm 0 0 0 Date PHQ9 was completed - 03/12/2022 11/26/2021 06/13/2022 03/14/2022 11/28/2021 Flowsheet Report Review Flowsheet (More Data Exists) FALLS RISK ASSESSMENT 06/13/2022 04/26/2021 04/20/2020 FALLEN TWICE IN PAST YEAR 0 1 1 MEDICAL CARE FOR FALL IN PAST YEAR 0 0 0 06/13/2022 04/26/2021 04/20/2020 Advance Directives: On File Observed Vitals: BP 130/77 (BP Location: Left Arm, BP Cuff Size: Regular) Pulse 82 Ht 1.626 m (5' 4) Wt 59.8 kg (131 lb 12.8 oz) BMI 22.62 kg/m?? Assessment/Plan 1. Encounter for Medicare annual wellness exam 2. Mixed hyperlipidemia (HRC) 3. Essential hypertension (HRC) 4. Vitamin D deficiency (HRC) 5. Acute non-recurrent maxillary sinusitis 6. Aneurysm of ascending aorta without rupture 7. Chronic neck and back pain 8. Lymphocytosis (HRC) 9. Screening for thyroid disorder Counseling and education provided today includes proper nutrition and health habits, fall prevention, and for those items ordered above. See plan for future preventive services in Patient Instructions. Carolynn Alvarado MD 06/13/2022, 12:19 PM Internal Medicine Office Visit ASSESSMENT: Encounter Diagnoses Name Primary? Encounter for Medicare annual wellness exam Yes Mixed hyperlipidemia (HRC) Essential hypertension (HRC) Vitamin D deficiency (HRC) Acute non-recurrent maxillary sinusitis Aneurysm of ascending aorta without rupture Chronic neck and back pain Lymphocytosis (HRC) Screening for thyroid disorder ASSESSMENT/PLAN: All chronic medical conditions below reviewed, see details in HPI - labs for monitoring as ordered below, medications refilled, chronic conditions stable, unless noted - changes as outlined below in patient instructions. >2 chronic conditions and Rx management. Treat acute sinusitis as outlined in detail below - doxy BID for 7 days and prednisone 20 mg daily for 5 days. RTC prn for any worsening or persistent sx. Follow up in 6 months Outlined plan in patient instructions below: Patient Instructions Annual Wellness Visit Summary Sinus Infection Begin doxycycline twice daily for 7 days - take probiotic while taking antibiotic Begin prednisone 20 mg daily in AM with food for 5 days. DO NOT take NSAIDS (Ibuprofen, Aleve, Advil, Motrin etc) while taking prednisone Can alternate with Tylenol - 500-1000 every 6 hours as needed If not improving in 5-7 days, OR if worsening (persistent fever > 101, cough with sputum, shortness of breath, new chest pain etc) please return to clinic or call FIT stool test Mammogram in September Your care team is recommending the following tests, procedures or services. Some of these recommendations may not be fully covered by Medicare or your insurance. If you have questions, check with your insurance to determine coverage before completing these services. Health Maintenance Due Health Maintenance Due Topic Date Due Zoster/Shingles (1 of 2) Never done FIT Colon Cancer Screening 06/01/2022 If your Medicare Welcome or Annual Wellness Visit is showing you are due in the above list, this will be updated after this visit. You had this completed today and are not due for another year. Take charge -- steps to prevent falls at home Is your home fall-proof? Many household items can be hazards. For example, lamp or telephone cords can easily trip you up. Make sure they are safely out of your path and general walkways. Also, throwrugs can slide when you walk on them and set you off balance. You???re safer if rugs are secured toyour floors and carpeting is attached at the edges. Clear the way It???s important to ensure that your home is free of clutter and that you can move around with ease. These types of safety measures can help keep you from accidental falls and injuries. Falls are oneof the leading reasons for senior hospital admissions due to injuries which often result in permanent disabilities or . As a result, many senior home safety experts suggest against throw rugs asthey increase the risk of seniors having falls. Safety measures Use this safety checklist as you move through your home. Try to check off most or all of these precautions. If you cannot, take steps to ensure your health and safety! All rooms are well-lit and light switches are easily within your reach. Handrails are securely fastened on all stairways. Stairways are well-lit and step edges are clearly visible. Light switches are easy to reach and placed both at the top and bottom of stairwells. Doorways are wide enough to move through easily. All entryways are free of tripping hazards. Chairs and couches are easy to get in and out of. Furniture is well-arranged and easy to walk around. Furniture is strong enough to support you if you lean on or against it. Kitchen cupboards are easy for you to reach without having to stand on a chair. Your bed is easy to get into and out of. The pathway between your bedroom and bathroom is free of clutter. Closet shelves are easy for you to reach without having to stand on a chair. A bath mat or nonskid tread is secured in your bathtub and shower. Grab bars are securely fastened by your bathtub and toilet. Your toilet is easy for you to get on and off. Outside walkways and steps are in good repair and are slip-resistant. ?? 2002 [employer]. CHP/SENIORS /#[id number] [facility] - [address] [address] [facility] [address] [address] [facility]: [facility] [address] [place] [address] [facility] [address] [address] Phone: [phone] [facility] 7th Floor, [address] [place] [address] [facility] [address] [place] [address] [facility] - [facility] ([facility]) [address] [place] [address] [facility] [address] [address] [facility] [address] [place] [address] [facility] [address] [place] [address] [facility] 7th Floor, [address] [place] [address] Learning About Eating More Fruits and Vegetables What are some quick tips for eating more fruits and vegetables? We're all encouraged to eat more fruits and vegetables. Yet it can seem like one more chore on the daily to-do list. But you can add color and crunch to your meals--and lots of nutrition--with these quick tips. Brighten up your breakfast. Add sliced fruit or frozen berries to your yogurt, pancakes, or cereal. Blend fresh or frozen fruit, veggies, and yogurt with a little fruit juice, and you've got a tasty smoothie. Make your scrambled eggs a gourmet treat by adding onions, celery, and morin peppers. Bake up some bran muffins with grated carrots added into the mix. Make a livelier lunch. Jazz up tuna or chicken salad with apple chunks, celery, or grapes--or all of them! Add cucumbers, avocado slices, tomatoes, and lettuce to your sandwiches. Kick up the flavor of grilled cheese sandwiches with spinach and tomatoes. Puree some cooked carrots or squash to add to tomato soup. Add delicious veggies to dinner. Give more color and taste to salads. Stir in red cabbage, carrots, and morin peppers. Top salads with dried cranberries or raisins. Melgar your salad with orange sections or strawberries. Keep a bag or two of frozen vegetables ready to pull out of the freezer for a side dish. Spice up spaghetti and meatballs with mushrooms and morin peppers. Roast vegetables like cauliflower or squash in the oven with olive oil to bring out their flavor. Season your veggie dish with herbs like basil and rosie and a splash of lemon juice and olive oil. Grab some healthy snacks on the go. Scoop up an apple, banana, or plum for a quick snack. Cut up raw fruits and veggies to keep in your fridge. Grapes, oranges, carrots, and celery are great choices. They'll be ready for a quick snack or an after- school treat. Dip raw vegetables in hummus or peanut butter. Keep dried fruit on hand for an easy take with you snack. Make something sweet--and healthy. Try baked apples or pears topped with cinnamon and honey for a delicious dessert. Make chocolate chip cookies even better with grated carrots added to the mix. Where can you learn more? 1. Go to https://www.[employer] 2. Enter F050 in the search box. Current as of: July 23, 2021 Content Version: 13.4 ?? [employer]. Care instructions adapted under license by your healthcare professional. If you have questions about a medical condition or this instruction, always ask your healthcare professional. [employer] disclaims any warranty or liability for your use of this information. Michelle was seen today for follow-up, medicare annual wellness and sinus problem. Diagnoses and all orders for this visit: Encounter for Medicare annual wellness exam Mixed hyperlipidemia (HRC) - Lipid Panel and Direct LDL(If Needed); Future - AST; Future - ALT (SGPT); Future Essential hypertension (HRC) Vitamin D deficiency ([facility]) - Vitamin D 25-Hydroxy, Total; Future Acute non-recurrent maxillary sinusitis - Complete Blood Count-No Diff; Future Aneurysm of ascending aorta without rupture Chronic neck and back pain Lymphocytosis (HR) Screening for thyroid disorder - TSH; Future Other orders - doxycycline (VIBRAMYCIN) 100 MG capsule; Take 1 Capsule (100 mg) by mouth two times a day for 7 days. - predniSONE (DELTASONE) 20 MG tablet; Take 1 Tablet (20 mg) by mouth daily for 7 days. - fluticasone propionate (FLONASE) 50 MCG/ACT nasal solution; Place 2 Sprays into both nostrils daily. decrease to 1 spray per nostril daily if symptoms controlled The patient was discharged ambulatory and in stable condition and agreed with the above plan. Carolynn Alvarado MD Chief Complaint: Chief Complaint Patient presents with Follow-up Medicare Annual Wellness Sinus Problem HPI: URI onset 7 days ago of sneezing, fatigue, COHEN, sore throat. No cough - only from drainage. no fevers, chills no dyspnea, chest pain + rhinorrhea + R>L facial pain, teeth pain + bilateral ear pain or drainage resolved sore throat + COHEN + grandkids Ill contacts appetite, continues to drink fluids Chronic neck and back pain - will be seeing the surgeon next month. 10/2021 trial meloxicam + PPI for persistent pain - tylenol 1000 mg TID does not help with pain Reports needs a fusion but Dr Gallagher at [facility] has caution due to osteoporosis. TC reports has had 4 epidural, nerve ablation - reports disc bulge L3. Last surgery 04/17/21 Tramadol no help in past from provider. She is not following at the pain clinic, didn't do any good - she was reffed to Dr Cyr at pain clinic She was last seen by [facility] 2019 She is tearful today, still has pain limiting her daily activites - walking or standing up to 8-9/10, at rest 08/[address] Oswald 2019 - prolia was started, noted some arthralgias after injection - TUMS 2 per day for her calcium DEXA 10/2021, -2.6 Mild aortic dilation Echo 03/2021 - on atenolol - per cards 05/2021 Repeat echocardiogram in two year for ongoing monitoring of aortic valve and mild aortic dilation - DUE 04/2023 Depression Follows with psychiatry GERD Taking PPI due to chronic NSAID, only has symptoms if misses dose. Reviewed at [facility] exam 04/20/06/13/20222020 Menstrual periods: Post menopausal - [id number] d/c'd HRT Calcium/vit D: Recommended daily DEXA: 2007 normal, DEXA 12/22/2014 mild low, DUE 05/2019 and consult 02/2020 with endo - plan for prolia to begin after neck surgery 2020, Ca and D. Endo Forteo as of 06/13/2022 ASA: discussed Obesity:Estimated body mass index is [...] Decline colonoscopy, 06/05/2021 negative FIT, due annually, ordered 06/13/2022 Review of systems: Complete ROS negative except as per noted in HPI Past medical history: Reviewed,please see Epic for details Allergies: Reviewed, please see Epic for details Social and Family History: Reviewed, please see [facility] for details Medications: Outpatient Medications Prior to Visit Medication Sig [...] Units) by mouth daily. 100 Capsule 3 clobetasol (TEMOVATE) 0.05 % cream Apply topically daily. desipramine (NORPRAMIN) 25 MG tablet Take 1 Tablet (25 mg) by mouth every morning. Update refills for 1 year. 90 Tablet 3 diclofenac (VOLTAREN) 1 % gel Apply 2 g to skin 4 times a day. 1 Each 5 DULoxetine (CYMBALTA) 20 MG capsule Take 1 Capsule (20 mg) by mouth daily. Take this 20mg capsule daily along with your current 60mg capsule = 80mg total daily dose. (Dose increase) 90 Capsule 3 DULoxetine (CYMBALTA) 60 MG capsule Take 1 Capsule (60 mg) by mouth daily. Also takes a Duloxetine 20mg Daily = 80mg total dose. 90 Capsule 3 famotidine (PEPCID) 20 MG tablet Take 1 Tablet (20 mg) by mouth two times daily as needed for Heartburn. 180 Tablet 3 LORazepam (ATIVAN) 0.5 MG tablet TAKE 1 TO 2 TABLETS BY MOUTH EVERY NIGHT AT BEDTIME 60 Tablet 5 meloxicam (MOBIC) 7.5 MG tablet Take 1 Tablet (7.5 mg) by mouth daily. 90 Tablet 1 methocarbamol (ROBAXIN) 500 MG tablet Take 1 Tablet (500 mg) by mouth at bedtime as needed for Other. 30 Tablet 5 traMADol (ULTRAM) 50 MG tablet Take 1 Tablet (50 mg) by mouth at bedtime as needed for Pain. 20 Tablet 0 triamcinolone acetonide (KENALOG) 0.1 % ointment Bid effected area 30 g 11 Facility-Administered Medications Prior to Visit Medication Dose Route Frequency Provider Last Rate Last Admin denosumab (PROLIA) injection 60 mg 60 mg Subcutaneous [id number] Reagan Campbell MD 60 mg at 05/23/22 1015 sodium chloride 0.9% injection 10-60 mL 10-60 mL Intravenous PRN Yessy Martinez PA-C OBJECTIVE: BP 130/77 (BP Location: Left Arm, BP Cuff Size: Regular) Pulse 82 Ht 1.626 m (5' 4) Wt 59.8 kg (131 lb 12.8 oz) BMI 22.62 kg/m?? General appearance: alert, cooperative, no distress HEENT: TM normal, nasal mucosa with mild edema and erythema, no exudate. posterior oropharynx non erythematous, no exudate, tonsils normal. + tenderness to palpation RIGHT maxillary sinus Neck: supple, no adenopathy, thyroid: not enlarged Lungs: CTA bilaterally Heart: RRR, S1, S2 normal, no murmur or click Abdomen: soft, non-tender; bowel sounds normal; no masses, no organomegaly Extremities: no edema Neurologic: A&O psych: normal See above for A/P documented in this encounter Plan of Treatment Upcoming Encounters Date Type Department Care Team Description 04/10/2023 8:30 AM J2EE ARCHITECT Appointment [place] [address] Family Medicine [address] [place] [phone] [place] [address] [place] [address] 04/15/2023 10:45 AM J2EE ARCHITECT Appointment [facility] [address] [facility]. [place], [place] [id number] Sin Castorena MD [address] [place] [id number] documented as of this encounter Results * ALT (SGPT) (06/26/2022 8:49 AM CDT) ALT (SGPT) 11 <=55 U/L 06/26/2022 10:01 AM CDT [facility] Blood Venipuncture / Unknown 06/26/2022 8:49 AM CDT 06/26/2022 8:49 AM CDT Carolynn Alvarado MD LAB_1 Performing Organization Address [facility]/ZIP Co de Phone Number [facility] [address] [place] [address], [facility] [phone] * AST (06/26/2022 8:49 AM CDT) Pathologist [facility] AST (SGOT) 16 10 - 40 U/L 06/26/2022 10:01 AM CDT [facility] Blood Venipuncture / Unknown 06/26/2022 8:49 AM CDT 06/26/2022 8:49 AM CDT Carolynn Alvarado MD LAB_1 Performing Organization Address [facility]/ZIP Co de Phone Number [facility] [address] [place] [address], [facility] [phone] * TSH (06/26/2022 8:49 AM CDT) TSH, Sensitive 1.32 0.30 - 4.50 uIU/mL 06/26/2022 3:29 PM CDT [facility] Blood Venipuncture / Unknown 06/26/2022 8:49 AM CDT 06/26/2022 8:49 AM CDT Carolynn Alvarado MD LAB_1 [facility] [address] * Complete Blood Count-No Diff (06/26/2022 8:49 AM CDT) WBC 8.2 3.5 - 10.5 x10(9)/L 06/26/2022 8:52 AM CDT [facility] RBC 4.24 3.90 - 5.03 x10(12)/L 06/26/2022 8:52 AM CDT [facility] Hemoglobin 13.2 12.0 - 15.5 g/dL 06/26/2022 8:52 AM CDT [facility] HCT 39.5 34.9 - 44.5 % 06/26/2022 8:52 AM CDT [facility] MCV 93.2 80.0 - 100.0 fL 06/26/2022 8:52 AM CDT [facility] MCH 31.1 27.6 - 33.3 pg 06/26/2022 8:52 AM CDT [facility] MCHC 33.4 31.5 - 35.2 g/dL 06/26/2022 8:52 AM CDT [facility] RDW 12.3 11.9 - 15.5 % 06/26/2022 8:52 AM CDT [facility] Platelets 440 150 - 450 x10(9)/L 06/26/2022 8:52 AM CDT [facility] Blood Venipuncture / Unknown 06/26/2022 8:49 AM CDT 06/26/2022 8:49 AM CDT Carolynn Alvarado MD LAB_1 Performing Organization Address City/State/[facility] Co de Phone Number [facility] [address] [place] [address] [phone] * Vitamin D 25-Hydroxy, Total (06/26/2022 8:49 AM CDT) Pathologist [facility] Vitamin D, 25-OH, Total 36 30 - 80 ng/mL 06/26/2022 3:32 PM CDT [facility] Blood Venipuncture / Unknown 06/26/2022 8:49 AM CDT 06/26/2022 8:49 AM CDT Carolynn Alvarado MD LAB_1 [facility] [address] [place], [place] [address] * (ABNORMAL) Lipid Panel and Direct LDL(If Needed) (06/26/2022 8:49 AM CDT) Cholesterol 188 0 - 199 mg/dL 06/26/2022 10:01 AM T [facility] Triglyceride 264(H) <=149 mg/dL 06/26/2022 10:01 AM T [facility] HDL Cholesterol 47 >=40 mg/dL 3 10:01 AM T [facility] LDL, Calculated 88 <130 mg/dL 3 10:01 AM [facility] Non HDL Chol, Calculated 141 <=159 mg/dL 06/26/2022 10:01 AM [facility] Cholesterol/HDL Ratio 4.0 06/26/2022 10:01 AM T [facility] Hours Fasting 12 06/26/2022 10:01 AM T [facility] Blood Venipuncture / Unknown 06/26/2022 8:49 AM CDT 06/26/2022 8:49 AM CDT Carolynn Alvarado MD LAB_1 Performing Organization Address City/[facility]/ZIP Co de Phone Number [facility] [address] [place] [address], [facility] [phone] [facility] [address] [place] [address], [facility] [phone] documented in this encounter Visit Diagnoses Diagnosis Encounter for Medicare annual wellness exam- Primary Mixed hyperlipidemia (HRC) Mixed hyperlipidemia Essential hypertension (HRC) Unspecified essential hypertension Vitamin D deficiency (HRC) Unspecified vitamin D deficiency Acute non-recurrent maxillary sinusitis Aneurysm of ascending aorta without rupture (HRC) Chronic neck and back pain Lymphocytosis (HRC) Lymphocytosis (symptomatic) Screening for thyroid disorder documented in this encounter Additional Health Concerns Infection Onset Date Last Indicated Resolved Time 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
--- OUTSIDE RECORDS SUMMARY | 2023-04-05 09:24 | XMS_ITS | Encounter Summary ---
Author Name Unknown Organization [facility] Address [address] [place] [address] Care Team Providers Care Bus System Operator Name Role Phone Carolynn Alvarado MD Primary Care Provider Reason for Referral * Procedure/Equipment (Routine) - New Request Specialty Diagnoses / Procedures Referred By Cecille concepcion Referred To Contact Diagnoses Nonrheumatic aortic valve insufficiency (HRC) Dilation of aorta (HRC) Procedures Echocardiogram Yessy Martinez PA-C [address] [place] [address] Referral ID Status Reason Start Date Expiration Date V isits Requested Visits Authorized [id number] New Request 03/17/2023 06/15/2024 1 1 Reason for Visit * Reason Comments Follow-up Encounter Details Date Type Department Care Team Description 05/30/2022 1:45 PM CDT Office Visit [facility] [address] Cardiology [address] [place] [address] Yessy Martinez PA-C [address] [place] [address] Nurse, Cardiology II Bv Nonrheumatic aortic valve insufficiency (Primary Dx); Dilation of aorta (HRC); Lone atrial fibrillation (HRC); Essential hypertension Social History Tobacco Use Types Packs/Day Years [...] Sign Reading Time Taken Comments Blood Pressure 135/68 05/30/2022 1:56 PM CDT Pulse 66 05/30/2022 1:56 PM CDT Temperature - - Respiratory Rate - - Oxygen Saturation - - Inhaled Oxygen Concentration - - Weight 60.3 kg (133 lb) 05/30/2022 1:56 PM CDT Height 165.1 cm (5' 5) 05/30/2022 1:56 PM CDT Body Mass Index 22.13 05/30/2022 1:56 PM CDT documented in this encounter Patient Instructions * Patient Instructions* Yessy Martinez PA-C - 05/30/2022 1:45 PM CDT Today's Cardiology plan (05/30/22): Call if any recurrent episodes of palpitations Follow-up in Heart Clinic in one year with a repeat echocardiogram prior to this visit If questions or concerns, please reach out to the Cardiology Clinic. My nurse, ANGELES Blevins, can be reached at [phone] Yessy Martinez PA-C Cardiology documented in this encounter Progress Notes * Yessy Martinez PA-C - 05/30/2022 1:45 PM CDT CARDIOLOGY CLINIC PROGRESS NOTE Date of visit: 05/30/2022 SUBJECTIVE: Cardiac History: Michelle Franz is a pleasant 76 y.o. female who presents to the clinic for annual follow-up. Cardiac medical history is notable for hypertension, hyperlipidemia, mild-moderate aortic regurgitation, and lone episode of atrial fibrillation following a non-cardiac surgery in 04/2021. Fo llow-up Ziopatch 04/2021 was without atrial fibrillation. She is not currently anticoagulated as lone atrial fibrillation episode was thought to be provoked. Today, Ms. Franz returns to the clinic feeling well from a cardiac perspective. She is had no recurrent episodes of atrial fibrillation (palpitations, lightheadedness) over the last year. She has been diagnosed with macular degeneration and is receiving injections. She continues to be very involvedin caring for her granddaughter with autism. 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 PAST MEDICAL HISTORY: Reviewed in [facility]. CURRENT MEDICATIONS: Reviewed in [facility]. Current cardiac medications: Amlodipine 10 mg daily Atenolol 25 mg daily ALLERGIES: Reviewed in [facility] PHYSICAL EXAM: BP 135/68 (BP Location: Left Arm, BP Cuff Size: Regular) Pulse 66 Ht 5' 5 (165.1 cm) Wt 133 lb (60105 g) BMI 22.13 kg/m?? GENERAL: The patient is pleasant and in no apparent distress. LUNGS: Clear to auscultation bilaterally with good expansion. CARDIOVASCULAR: Rhythm is regular. Rate is regular. No murmur appreciated. ABDOMEN: Soft EXTREMITIES: Lower extremities without pitting edema. SKIN: Warm and dry. NEUROLOGIC: Alert and oriented, moving all extremities spontaneously. PERTINENT LABS: Lab Results Component Value Date Creatinine 0.70 04/08/2022 Glucose 78 04/08/2022 Bedside Blood Glucose Test 85 06/24/2014 CO2 28 04/08/2022 Chloride 103 04/08/2022 Potassium 4.0 04/08/2022 Sodium 141 04/08/2022 BUN 10 04/08/2022 Calcium 9.2 04/08/2022 GFR, Estimated >60 04/08/2022 Recent imaging/studies: 03/2021 Echocardiogram CONCLUSIONS 1. Left ventricular chamber size is normal. [...] 03/03/18, there has been no significant change. 05/2021 Ziopatch Summary: 1. Zio is unremarkable 2. Symptoms occurred in association with PACs and PVCs. 3. The SVT mechanism is likely a focal ectopic atrial tachycardia (benign). ASSESSMENT: 1. Lone atrial fibrillation, symptomatic. Seen at [facility] ED in Apr 2021 for palpitations and lightheadedness, required DCCV. Thought to be provoked as episode occurred two days following lumbar spine surgery when she was short on sleep and had missed two days of her atenolol. -TSH within normal limits, preserved LVEF, no significant valvular abnormalities. Ziopatch 2021 without evidence of Afib. She denies any recurrent symptoms over the last year. RRR on exam today. -Not currently on anticoagulation. [id number] score of 3 (F, age, HTN). If recurrent Afib seen, chronic anticoagulation to be pursued. 2. Intermittent palpitations, paroxysmal SVT, PACs, PVCs on Ziopatch 3. Mild-moderate aortic regurgitation, 2021 echo 4. Mild dilation of the ascending aorta, 4.1 cm on 2021 echo 5. Hypertension, controlled 6. Hyperlipidemia PLAN: -- Continue current medications -- She knows to call cardiology team or seek medical attention should she experience a recurrent bout of atrial fibrillation -- We will plan to update echocardiogram in one year to reassess valvular disease and mild aorta dilation -- Routine follow-up in the cardiology clinic in one year (with echo prior) --She knows to call or return sooner as needed with any concerns or problems (ANGELES Blevins, ). Total time spent with the patient was 30 minutes, 20 minutes in counseling reviewing recent medications, possible side effects, providing education, and discussing imaging/laboratory results. Patientunderstand to call the clinic or seek medical attention for any concerning symptoms. Yessy Martinez PA-C [facility] documented in this encounter Plan of Treatment Upcoming Encounters Date Type Department Care Team Description 04/10/2023 8:30 AM FIREMAN Appointment [place] [address] Family Medicine [address] [place] [address] [place] [address] [place] [address] 04/15/2023 10:45 AM FIREMAN Appointment [facility] [address] [place] [address] [address] [facility]. [place], [place] [phone] Sin Castorena MD [address] [place], [place] [phone] documented as of this encounter Visit Diagnoses Diagnosis Nonrheumatic aortic valve insufficiency (HRC)- Primary Aortic valve disorders Dilation of aorta (HRC) Lone atrial fibrillation (HRC) Atrial fibrillation Essential hypertension (HRC) Unspecified essential hypertension documented in this encounter Additional Health Concerns Infection Onset Date Last Indicated Resolved Time 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 (+) 11/07/2015 11/07/2015 documented as of this encounter Care Teams Bus System Operator Relationship Specialty Start [place] [address] [address] [place] [address] PCP - General Internal Medicine 11/09/15 documented as of this encounter
--- OUTSIDE RECORDS SUMMARY | 2023-04-05 09:24 | XMS_ITS | Encounter Summary ---
Author Name Unknown Organization [facility] Address [address] [address] Care Team Providers Care Project Management Specialist Name Role Phone Carolynn Alvarado MD Primary Care Provider [phone] Reason for Visit * Reason Comments Follow-up Encounter Details Date Type Department Care Team Description 04/08/2022 9:30 AM MACHINE MAINTENANCE MECHANIC Office Visit [facility] [address] [place] [address] Reagan Campbell MD [facility] [place] [address] Osteoporosis with current pathological fracture, unspecified osteoporosis [...] Sign Reading Time Taken Comments Blood Pressure 138/84 04/08/2022 9:32 AM MACHINE MAINTENANCE MECHANIC Pulse 83 04/08/2022 9:32 AM MACHINE MAINTENANCE MECHANIC Temperature - - Respiratory Rate - - Oxygen Saturation - - Inhaled Oxygen Concentration - - Weight 59.2 kg (130 lb 9.6 oz) 04/08/2022 9:32 A M MACHINE MAINTENANCE MECHANIC Height 166.4 cm (5' 5.5) 04/08/2022 9:32 AM MACHINE MAINTENANCE MECHANIC Body Mass Index 21.4 04/08/2022 9:32 AM MACHINE MAINTENANCE MECHANIC documented in this encounter Patient Instructions * Patient Instructions* eRagan Campbell MD - 04/08/2022 9:30 AM MACHINE MAINTENANCE MECHANIC Start Forteo injections Take Tums twice daily Vit D 2000 IU daily. INE MAINTENANCE MECHANIC documented in this encounter Progress Notes * Reagan Campbell MD - 04/08/2022 9:30 AM CST Endocrine Note: Office visit Date: 04/08/2022 Referring Physician: Carolynn Alvarado MD Follow-up Interval history: Michelle is here for a follow-up visit. She was initially evaluated in 2019 for osteoporosis. Given the history of fragility fractures, shewas diagnosed with severe osteoporosis and was recommended to be started on treatment. 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 She now lives with her daughter and takes care of her granddaughter with autism. She had 3 C-spine surgeries/fusion and she continues to have low back pain. There is plan for neurosurgical evaluation and possibly spinal fusion. Her orthopedic physicians at [facility] recommended treatment for osteoporosis. In October 2021, she had a DEXA scan repeated. This showed further progression in bone loss She is not taking any calcium supplementation due to GERD symptoms She continues to take vitamin-D supplementation. No falls or fractures total height loss was 2.5 in Exam: BP 138/84 (BP Location: Right Arm, BP Cuff Size: Regular) Pulse 83 Ht 5' 5.5 (1.664 m) Wt 130 lb 9.6 oz (59.2 kg) BMI 21.40 kg/m?? Constitutional: No distress Head: Normocephalic. Neck: Healthy spinal surgery scar Cardiovascular: regular rhythm, no tachycardia Respiratory: Lungs clear Gastrointestinal: Bowel sounds are present Neurologic: Normal speech, reflexes normal. Psychiatric: mentation appears normal Spine no tenderness. Kyphoscoliosis issues Assessment: Michelle Franz is a 76 y.o. female who is here for evaluation of severe osteoporosis 1. Severe osteoporosis 2. Fragility fractures 3. History of multiple cervical spine surgeries Plan: Ideally, patient will benefit from Forteo injections If this is not covered, next step would be to use Prolia injections Recommendations: Patient Instructions Start Forteo injections Take Tums twice daily Vit D 2000 IU daily. Reagan Campbell MD Endocrinology Service HPI: Michelle Franz is a 76 y.o. female who presents for evaluation of Osteopenia with high FRAX Score. She recently had a DEXA 05/2019 that showed T-Score: -2, BMD 0.631 at Femoral neck with FRAX 10 yearprobability major osteoporotic fracture: 24.6% 10 year probability [...] standing height, metatarsal fracture after twisting ankle. Detail Increased fall risk no Prior Fracture yes: Upper ulnar fracture after fall from standing ht Ca supplement None, causes constipation Vit D supplement Yes, daily Family history of thyroid / AI disease yes: Son with RA, DTR has Graves FH of bone disorder no Family history of osteoporosis no PMH: Past Medical History: 03/04/2014: Aortic insufficiency (HRC) 03/04/2014: Ascending aorta dilatation (HRC) No date: Cataract 04/02/2011: Chronic insomnia Comment: Follows with Dr Bony Yanes - takes ativan 0.25 mg at bedtime, higher dose limited by fatigue. 01/28/2017: Chronic neck and back pain 04/02/2011: Dysthymic disorder (ACG) No date: Gastroesophageal reflux disease 11/10/2018: History of basal cell carcinoma 08/21/2002: Hypertension No date: Hypertension (ACG) 04/02/2011: Insomnia, unspecified 04/22/2016: Lumbosacral radiculopathy at L3 04/22/2016: Lymphocytosis (HRC) 05/14/2017: Mixed hyperlipidemia (HRC) 12/21/2014: Osteopenia 02/08/2014: Routine health maintenance Comment: Reviewed at physical exam 02/08/2014 Menstrual periods: Post menopausal - on chronic HRT and rec discontinuation Calcium/vit D: Recommended daily DEXA: 2007 normal, consider 2012, DUE ASA: discussed Obesity: There is no height or weight on file to calculate BMI. Exercise: Recommended daily 30 min Smoking cessation: Never smoker Mammogram: Last normal 03/2013, DUE 2014 Pap smear: Last 2004, no f PSH: Past Surgical History: 1979: BLADDER REPAIR Comment: Anterior colporrhaphy No date: BUNIONECTOMY Comment: LW Problem: Bunionectmy s/p LW Modifier: Right LW Onset: 07/27/07 09/08/2001: BX BREAST;PERQ VAC/ROTAT DEV W/GUID; Right Comment: stereo bx, clip placed 01/15/2016: CATARACT REMOVAL; Left Comment: IOL by IRENE 01/29/2016: CATARACT REMOVAL; Right Comment: IOL by IRENE 06/24/2014: CERVICAL FUSION Comment: C4-6 2016: EYE SURGERY 04/02/2022: INTRAVITREAL INJECTION; Right Comment: Avastin OD 03/28/2017: LAP CHOLECYSTECTOMY; N/A Comment: Cholelithiasis 2014 2016 2017: SPINE SURGERY No date: TUBAL LIGATION Comment: LW Problem: Tubal Ligation Status LW Onset: 1978 1979: VAGINAL HYSTERECTOMY Comment: Vaginal for Uterine prolapse FH: Family History Problem Relation Age of Onset [...] Negative Family History Blindness Negative Family History SH: Social History Tobacco Use Smoking status: Never Smokeless tobacco: Never Vaping Use Vaping Use: Never used Substance Use Topics Alcohol use: No Drug use: No ALL: Allergies Allergen Reactions Lisinopril Palpitations MED: acetaminophen amLODIPine atenolol calcium citrate-vitamin D cholecalciferol desipramine diclofenac DULoxetine famotidine LORazepam meloxicam methocarbamol methylPREDNISolone sodium chloride 0.9% traMADol triamcinolone acetonide Current Outpatient Medications Medication Sig acetaminophen (TYLENOL) 500 MG tablet Take 2 Tablets (1,000 mg) by mouth three times a day. Maximumacetaminophen dose is 4000 mg in 24 hours amLODIPine (NORVASC) 10 MG tablet Take 1 Tablet (10 mg) by mouth daily. atenolol (TENORMIN) 25 MG tablet Take 1 Tablet (25 mg) by mouth daily. calcium citrate-vitamin D (CITRACAL+D) 315-5 MG-MCG tablet Take 1 Tablet by mouth two times a day. cholecalciferol (VITAMIN D3) 50 MCG (2000 UT) capsule Take 1 Capsule (2,000 Units) by mouth daily. desipramine (NORPRAMIN) 25 MG tablet Take 1 Tablet (25 mg) by mouth every morning. Update refills for 1 year. diclofenac (VOLTAREN) 1 % gel Apply 2 g to skin 4 times a day. DULoxetine (CYMBALTA) 20 MG capsule Take 1 Capsule (20 mg) by mouth daily. Take this 20mg capsule daily along with your current 60mg capsule = 80mg total daily dose. (Dose increase) DULoxetine (CYMBALTA) 60 MG capsule Take 1 Capsule (60 mg) by mouth daily. Also takes a Duloxetine 20mg Daily = 80mg total dose. famotidine (PEPCID) 20 MG tablet Take 1 Tablet (20 mg) by mouth two times daily as needed for Heartburn. LORazepam (ATIVAN) 0.5 MG tablet TAKE 1-2 TABLETS BY MOUTH EVERY NIGHT AT BEDTIME. 90 DAY SUPPLY PLUS 1 REFILL. meloxicam (MOBIC) 7.5 MG tablet Take 1 Tablet (7.5 mg) by mouth daily. (Patient not taking: Reported on 04/08/2022) methocarbamol (ROBAXIN) 500 MG tablet Take 1 Tablet (500 mg) by mouth at bedtime as needed for Other. methylPREDNISolone (MEDROL 21 TABLET DOSEPACK) 4 MG tablet Follow package directions (Patient not taking: Reported on 04/08/2022) traMADol (ULTRAM) 50 MG tablet Take 1 Tablet (50 mg) by mouth at bedtime as needed for Pain. triamcinolone acetonide (KENALOG) 0.1 % ointment Bid effected area Last Basic Metabolic Panel: Results for orders placed or performed in visit on 03/14/22 Hgb A1C Result Value Ref Range Hemoglobin A1C (Rapid) 5.5 <=5.6 % Creatinine / GFR Result Value Ref Range Creatinine 0.80 0.55 - 1.02 mg/dL GFR, Estimated >60 >60 mL/min/1.73m2 Electrolyte Panel Result Value Ref Range Sodium 142 136 - 145 mmol/L Potassium 3.8 3.5 - 5.1 mmol/L Chloride 103 98 - 109 mmol/L CO2 27 20 - 29 mmol/L Anion Gap 12 7 - 16 mmol/L Lab Results Component Value Date WBC 9.1 10/30/2021 WBC 8.5 05/18/2021 WBC 11.2 (H) 04/26/2021 RBC 3.94 10/30/2021 RBC 4.15 05/18/2021 RBC 4.46 04/26/2021 Hemoglobin 12.4 10/30/2021 Hemoglobin 12.3 05/18/2021 Hemoglobin 13.0 04/26/2021 HCT 37.2 10/30/2021 HCT 38.9 05/18/2021 HCT 42.4 04/26/2021 MCV 94.4 10/30/2021 MCV 93.7 05/18/2021 MCV 95.1 04/26/2021 RDW 12.3 10/30/2021 RDW 13.2 05/18/2021 RDW 13.2 04/26/2021 Platelets 389 10/30/2021 Platelets 407 05/18/2021 Platelets 510 (H) 04/26/2021 Lab Results Component Value Date Creatinine 0.80 03/14/2022 BUN 16 10/30/2021 Sodium 142 03/14/2022 Potassium 3.8 03/14/2022 Chloride 103 03/14/2022 CO2 27 03/14/2022 Lab Results Component Value Date Intact PTH 67 03/06/2020 INE MAINTENANCE MECHANIC documented in this encounter Plan of Treatment Upcoming Encounters Date Type Department Care Team Description 04/10/2023 8:30 AM MACHINE MAINTENANCE MECHANIC Appointment [facility] [address] [facility] [address] [place] [address] [place] [address] [place] [address] 04/15/2023 10:45 AM MACHINE MAINTENANCE MECHANIC Appointment [facility] [address] [facility]. [place], [place] [id number] Sin Castorena MD [address] [place], [place] [id number] documented as of this encounter Results * (ABNORMAL) Vitamin D 25-Hydroxy, Total (04/08/2022 10:25 AM MACHINE MAINTENANCE MECHANIC) Vitamin D, 25-OH, Total 26(L) 30 - 80 ng/mL 04/08/2022 8:20 PM MACHINE MAINTENANCE MECHANIC [facility] Blood Venipuncture / Unknown 04/08/2022 10:25 AM MACHINE MAINTENANCE MECHANIC 04/08/2022 10:25 AM MACHINE MAINTENANCE MECHANIC Narrative [facility] - 04/08/2022 8:20 PM MACHINE MAINTENANCE MECHANIC Expected values Deficiency: <20 ng/mL Insufficiency: 20-29 ng/mL Optimum: 30-80 ng/mL Possible toxicity: >80 ng/mL Reagan Campbell MD LAB_1 Performing Organization Address [facility] de Phone Number [facility] [address] [place] [address] * Intact PTH (04/08/2022 10:25 AM MACHINE MAINTENANCE MECHANIC) Intact PTH 96 10 - 100 pg/mL 04/08/2022 8:02 PM MACHINE MAINTENANCE MECHANIC [facility] Blood Venipuncture / Unknown 04/08/2022 10:25 AM MACHINE MAINTENANCE MECHANIC 04/08/2022 10:25 AM MACHINE MAINTENANCE MECHANIC Reagan Campbell MD LAB_1 Performing Organization Address [facility] de Phone Number [facility] [address] [place] [address] * Phosphorus (04/08/2022 10:25 AM MACHINE MAINTENANCE MECHANIC) Phosphorus 3.2 2.3 - 4.7 mg/dL 04/08/2022 12:01 PM [facility] Blood Venipuncture / Unknown 04/08/2022 10:25 AM MACHINE MAINTENANCE MECHANIC 04/08/2022 10:25 AM MACHINE MAINTENANCE MECHANIC Reagan Campbell MD LAB_1 Performing Organization Address City/[facility]/ZIP Co de Phone Number [facility] [address] [place] [address], [facility] [phone] * Basic Metabolic Panel (04/08/2022 10:25 AM [facility]) Sodium 141 136 - 145 mmol/L 04/08/2022 12:01 PM [facility] Potassium 4.0 3.5 - 5.1 mmol/L 04/08/2022 12:01 PM [facility] Chloride 103 98 - 109 mmol/L 04/08/2022 12:01 PM [facility] CO2 28 20 - 29 mmol/L 04/08/2022 12:01 PM [facility] Anion Gap 10 7 - 16 mmol/L 04/08/2022 12:01 PM [facility] Calcium 9.2 8.4 - 10.4 mg/dL 04/08/2022 12:01 PM [facility] BUN 10 7 - 26 mg/dL 04/08/2022 12:01 PM [facility] Creatinine 0.70 0.55 - 1.02 mg/dL 04/08/2022 12:01 PM [facility] Glucose 78 70 - 100 mg/dL 04/08/2022 12:01 PM [facility] Comment:The given reference range is for the fasting state. Non-fasting reference range for glucose is 70 - 180 mg/dL. Hours Fasting 2 04/08/2022 12:01 PM [facility] GFR, Estimated >60 >60 mL/min/1.7 3m2 04/08/2022 12:01 PM [facility] Blood Venipuncture / Unknown 04/08/2022 10:25 AM MACHINE MAINTENANCE MECHANIC 04/08/2022 10:25 AM MACHINE MAINTENANCE MECHANIC Reagan Campbell MD LAB_1 [facility] [address] [place] [address], [facility] [phone] documented in this encounter Visit Diagnoses Diagnosis Osteoporosis with current pathological fracture, unspecified osteoporosis type, sequela- Primary documented in this encounter Additional Health Concerns Infection Onset Date Last Indicated Resolved Time MRSA Comment:06/24/14 nares (+) 11/07/2015 11/07/2015 documented as of this encounter Care Teams Project Management Specialist Relationship Specialty Start [place] [address] [address] [place] [address] PCP - General Internal Medicine 11/09/15 documented as of this encounter
--- OUTSIDE RECORDS SUMMARY | 2023-04-05 09:24 | XMS_ITS | Patient Health Record ---
Author Name Unknown Organization [facility] Address [address] [place] [address] [address] [place] [address] Care Team Providers Care Assistant Food Service Manager Name Role Phone Carolynn Alvarado Primary Care Provider UnavailLarry Rasheed Unavailable [phone] Phillip Gallagher Unavailable Unavailable ALLERGIES Allergen (clinical [...] chronic pain (G89.29) Active confirmed Chronic pain (04816394) Problem Spondylosis without myelopathy or radiculopathy, lumbosacral region (M47.817) Active confirmed Lumbosacral spondylosis without myelopathy (56949116) Problem Cervicalgia (M54.2) Active confirmed Cervicalgia (43336627) Problem Radiculopathy, lumbosacral region (M54.17) Active confirmed Lumbosacral radiculopathy (1099035) PLAN OF TREATMENT No Information Insurance Providers Payer Name Payer Address Payer Phone Subscriber Number Group Number Insured Name Patient Relationship to Insured Coverage Start Date Coverage End Date [employer] [address] [address] [place] [address] [id number] Michelle Franz Self - patient is the insured 2 Medicare Part B [employer]. [address] [place] [address] [id number] Michelle Franz Self - patient is the insured 3 MEDICAL (GENERAL) HISTORY Medical History History ICD Code acid reflux arthritis depression headaches hypertension osteoporosis Surgical History Surgery Date(Month/Year) gall bladder surgery 2018 microdiscectomy 2016,2020,2020 cervical fusions 2014,2017,2020 Hospitalization History Reason Date(Month/Year) see surgical history
--- OUTSIDE RECORDS SUMMARY | 2023-04-05 09:24 | XMS_ITS | Encounter Summary ---
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 You may see [...] Eye discharge (other than tears/bloody tears) Call [phone] with any problems. STATION ATTENDANT documented in this encounter Progress Notes * Sin Castorena MD - 04/30/2022 10:45 AM CST Last visit with Dr. Castorena 04/02/[address] Vyas 03/07/22 The medications, [...] eye - central macular CNV/SHRM, (+) SRF, (+) IRF, stable OCT of the left eye [...] w/ injections - Plan - LORRAINE OD #2 04/30/22 - f/u 4 weeks, LORRAINE OD #3 - LATRICIA PA requested #) ERM, OS -Inferior to fovea - not VS, monitor #) Peripheral Reticular Degeneration, OU - mild, not visually signficant - No signs of heme or RT/RD - Maintain healthy lifestyle, no smoking, UV protection #) PVD, OU - No signs of RT/RD on exam 360, asymptomatic - Monitor #) Dry AMD, early, OU - - Discussed etiology and progression of disease, including risk of geographic atrophy and possible progression to wet AMD - AREDS2, UV protection, Amsler grid, no smoking - Callback precautions discussed Plan and expectations discussed with the patient, who voiced understanding. Callback precautions discussed Follow up in 4 week, LORRAINE OD #3, injxn only, OCT on arrival Last DFE: 03/2022 Further details of the management plan can [...] the patient and family- Sin Castorena MD STATION ATTENDANT documented in this encounter Procedure Notes * Laura Bueno - 04/30/2022 10:45 AM CST Intravitreal Injection Operative Report Eye: Right Surgeon: Sin Castorena MD Medicaton: Avastin 0.05 mL (1.25mg) Lot number: [id number], Exp 07/25/2022 Anesthesia: tetracaine, akten 5% povidone iodine drop [...] of a peripheral shadow in the vision. STATION ATTENDANT documented in this encounter Plan of Treatment Upcoming Encounters Date Type Department Care Team Description 04/10/2023 8:30 AM CAB STATION ATTENDANT Appointment [place] [address] [facility] [address] [place] [address] [place] [address] [place] [address] 04/15/2023 10:45 AM CAB STATION ATTENDANT Appointment [facility] [address] [facility]. 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
--- OUTSIDE RECORDS SUMMARY | 2023-04-05 09:24 | XMS_ITS | Encounter Summary ---
Author Name Unknown Organization [facility] Address [address] [place] [address] Care Team Providers Care Police Patrol Lieutenant Name Role Phone Carolynn Alvarado MD Primary Care Provider [phone] Reason for Referral * Consult/Transfer Care (Routine) - New Request Specialty Diagnoses / Procedures Referred By Cecille concepcion Referred To Contact Pain Management Diagnoses Back pain, unspecified back location, unspecified back pain laterality, unspecified chronicity Jolene Levin DO [address] [place] [address] [facility] [address] [place] [address] Referral ID Status Reason Start Date Expiration Date V isits Requested Visits Authorized [id number] New Request 05/14/2022 08/13/2023 1 1 Scheduling Instructions Your clinician has recommended an appointment with [facility]. If you have questions about your upcoming visit, you may call [phone]. This recommended service/s may not be covered by your insurance coverage. To find out your specific benefit coverage, please call the number on your insurance card. Question Answer Appointment Urgency? Non-Urgent Consult for Comprehensive Pain Assessment Reason for visit? low back pain T BINDING AND FINISHING WORKER Reason for Visit * Reason Comments BACK PAIN No new injury Encounter Details Date Type Department Care Team Description 05/14/2022 9:30 AM PRINT BINDING AND FINISHING WORKER Office Visit [facility] [address] [place] [phone] Jolene Levin DO [address] [facility] [place] [address] Lumbar radiculopathy (Primary Dx); Back pain, unspecified back location, unspecified back pain laterality, unspecified chronicity Social History Tobacco Use Types Packs/Day Years [...] Sign Reading Time Taken Comments Blood Pressure - - Pulse - - Temperature 36.7 ??C (98.1 ??F) 05/14/2022 9:42 AM CS T Respiratory Rate - - Oxygen Saturation - - Inhaled Oxygen Concentration - - Weight 59 kg (130 lb) 05/14/2022 9:42 AM PRINT BINDING AND FINISHING WORKER Height 165.1 cm (5' 5) 05/14/2022 9:42 AM PRINT BINDING AND FINISHING WORKER Body Mass Index 21.63 05/14/2022 9:42 AM PRINT BINDING AND FINISHING WORKER documented in this encounter Patient Instructions * Patient Instructions* Mariia Nice, RN - 05/14/2022 9:30 AM PRINT BINDING AND FINISHING WORKER Thank you for choosing [facility] for your health care visit today. Jolene Levin DO Imaging Social Insurance Adviser: [facility] - [address] [place] [address]. Call [phone] to schedule. Medication Requests: Prescriptions are filled on Weekdays before 3:00PM For all medication refills: Request a refill using MyChart or contact your Pharmacy Paperwork Requests: FMLA or disability paperwork can be faxed to: [phone] Please allow 7-10 business days for completion of all paperwork. [employer] Worker's Compensation Services: E-mail Address: [email or web address] What is Know Your Cost? Know Your Cost is a service for patients and patient/members to call and receive personalized cost information and estimates across our care group. The phone number is (COST) Friday - Friday 8 AM to 5 PM To request copies of your medical records, call: [phone] (option 4) Diagnosis: low back pain Plan: Follow Up: with Elaine Antonio or Pain clinic (whoever is available first) If you have any questions regarding your visit or next steps, please contact us at [phone]. T BINDING AND FINISHING WORKER documented in this encounter Progress Notes * Jolene Levin, - 05/14/2022 9:30 AM CST Michelle Franz [id number] 1945 [facility] Orthopaedic [facility] 05/14/2022 Chief Complaint: Low back pain History of Present Illness: Michelle Franz is a 76 y.o. female who presents for evaluation of low back pain. Patient with a verychronic history of low back pain and 3 previous microdiskectomies, most recently in April of 2021. The most recent [address] Gallagher at [facility]. She notes it did not help improve her pain. She continues to have chronic daily low back pain that radiates into her right leg. She mostly has pain that radiates around into her groin but at times it goes down the side of her thigh. She endorses numbness, tingling and weakness that is unchanged at baseline. No bowel or bladder changes. She was told by Dr. Gallagher that she needed a spine fusion but he would not do this for concern about hardware fail ure given her osteoporosis. She is getting started on Prolia through endocrinology this week. She has been seen at [facility] and had multiple orders for physical therapy, forward previous TOM injections as well as multiple prescriptions for prednisone and a Medrol Dosepak. She notes that none of these things have helped improve her pain at all. She has also been on muscle relaxers, pain medications as well as gabapentin without any change in her symptoms. She is here today for continued pain management until she is able to see neurosurgery in June. No new changes in her back pain. ROS: Pertinent positives are noted in HPI, otherwise complete 9 point review of systems negative. Past medical, family, surgical and social history were reviewed and pertinent information noted in HPI. Physical Exam: Gen: No acute distress CV: Pulses normal Psych: Pleasant and cooperative Neuro: Grossly intact. No focal deficits. Lumbar spine: Near normal trunk range of motion. No midline tenderness. No significant paraspinal muscle spasm or discomfort to palpation. Discomfort over the SI joints bilaterally that radiates intothe glute/piriformis muscles. Changes positions without discomfort. Can stand on heels and toes. Negative straight leg raise bilaterally. Normal strength bilaterally. Reflexes normal. Negative logroll. Sensation diffusely decreased on the right leg. Normal hip range of motion. Negative FADIR and KRYSTINA. Imaging: Deferred Assessment/Plan: Chronic low back pain with right radiculopathy History of 3 previous microdiskectomies in the lumbar spine Patient is here for chronic back pain and. No new findings or changes in her normal symptoms. She does have a neurosurgery appointment in June. I did discuss it is good that she is getting started on osteoporosis medications if she does need a spine fusion in the future. We did discuss the concernfor hardware failure with osteoporosis. At this point I did discuss that given trial and failure ofmany of the pain management options we use an acute setting that there are limited things that we can continue to do here without referring her to either our nonoperative spine team or pain clinic. She declined wanting to try further TOM or prednisone medications. She notes she is already on a muscle relaxer and does not want to try a different 1. She declined a physical therapy order stating that she has home exercises at home that she can do. We did discuss signs and symptoms for her to be seen sooner. Recommended following up in our pain clinic to help with more chronic pain management until she is able to be seen and evaluated for Neurosurgery recommendations. Total time of 45 minutes was spent with the patient discussing history, results and treatment plan.This does include non vanh-hc-pzpy time. Jolene Levin DO T BINDING AND FINISHING WORKER documented in this encounter Plan of Treatment Upcoming Encounters Date Type Department Care Team Description 04/10/2023 8:30 AM PRINT BINDING AND FINISHING WORKER Appointment [place] [address] Family Medicine [address] [place] [address] [place] [address] [place] [address] 04/15/2023 10:45 AM PRINT BINDING AND FINISHING WORKER Appointment [facility] [address] [place] [address] [address] [facility] [place], [place] [address] Sin Castorena MD [address] [place], [place] [address] Scheduled Referrals Name Type Priority Associated Diagnoses Orde r Schedule Pain-Medical Adult Consult [facility] Referral Routine Back pain, unspecified back location, unspecified back pain laterality, unspecified chronicity Ordered: 05/14/2022 documented as of this encounter Visit Diagnoses Diagnosis Lumbar radiculopathy- Primary Thoracic or lumbosacral neuritis or radiculitis, unspecified Back pain, unspecified back location, unspecified back pain laterality, unspecified chronicity documented in this encounter Additional Health Concerns Infection Onset Date Last Indicated Resolved Time 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 (+) 11/07/2015 11/07/2015 documented as of this encounter Care Teams Police Patrol Lieutenant Relationship Specialty Start [place] [address] [place] [address] PCP - General Internal Medicine 11/09/15 documented as of this encounter
--- OUTSIDE RECORDS SUMMARY | 2023-04-05 09:24 | XMS_ITS | Encounter Summary ---
Author Name Unknown Organization [facility] Address [address] [place] [address] Care Team Providers Care Haulpak Driver Name Role Phone Carolynn Alvarado MD Primary Care Provider [phone] Encounter Details Date Type Department Care Team Description 06/26/2022 8:50 AM CDT Lab Visit [facility] [address] [place] [phone] Mixed hyperlipidemia (HRC); Vitamin D deficiency (HRC); Acute non-recurrent maxillary sinusitis; Screening for thyroid disorder Social History Tobacco [...] Department Care Team Description 04/10/2023 8:30 AM ORACLE BUSINESS ANALYST Appointment [place] [address] Family Medicine [address] [place] [phone] [place] [address] [place] [address] 04/15/2023 10:45 AM ORACLE BUSINESS ANALYST Appointment [facility] [address] [place] [address] Sin Castorena MD [address] [place], [place] [address] documented as of this encounter Procedures Procedure Name Priority Date/Time Associated Diagnosis Comments LIPID PANEL & DIRECT LDL (IF NEEDED) Routine 06/26/2022 8:49 AM CDT Mixed hyperlipidemia (HRC) VITAMIN D 25-HYDROXY, TOTAL Routine 06/26/2022 8:49 AM CDT Vitamin D deficiency (HRC) TSH, SENSITIVE Routine 06/26/2022 8:49 AM CDT Screening for thyroid disorder COMPLETE BLOOD COUNT-NO DIFF Routine 06/26/2022 8:49 AM CDT Acute non-recurrent maxillary sinusitis ALT (SGPT) Routine 06/26/2022 8:49 AM CDT Mixed hyperlipidemia (HRC) AST Routine 06/26/2022 8:49 AM CDT Mixed hyperlipidemia (HRC) documented in this encounter Results * ALT (SGPT) (06/26/2022 8:49 AM CDT) ALT (SGPT) 11 <=55 U/L 06/26/2022 10:01 AM CDT [facility] Blood Venipuncture / Unknown 06/26/2022 8:49 AM CDT 06/26/2022 8:49 AM CDT Craolynn Alvarado MD LAB_1 [facility] [address] [place] [address], [facility] [phone] * AST (06/26/2022 8:49 AM CDT) AST (SGOT) 16 10 - 40 U/L 06/26/2022 10:01 AM CDT [facility] Blood Venipuncture / Unknown 06/26/2022 8:49 AM CDT 06/26/2022 8:49 AM CDT Carolynn Alvarado MD LAB_1 Performing Organization Address City/[facility]/ZIP Co de Phone Number [facility] [address] [place] [address] [phone] * TSH (06/26/2022 8:49 AM CDT) Pathologist [facility] TSH, Sensitive 1.32 0.30 - 4.50 uIU/mL 06/26/2022 3:29 PM CDT [facility] Blood Venipuncture / Unknown 06/26/2022 8:49 AM CDT 06/26/2022 8:49 AM CDT Carolynn Alvarado MD LAB_1 Performing Organization Address City/[facility]/ZIP Co de Phone Number [facility] [address] * Complete Blood Count-No Diff (06/26/2022 8:49 AM CDT) [facility] WBC 8.2 3.5 - 10.5 x10(9)/L 06/26/2022 8:52 AM CDT [facility] RBC 4.24 3.90 - 5.03 x10(12)/L 06/26/2022 8:52 AM CDT [facility] Hemoglobin 13.2 12.0 - 15.5 g/dL 06/26/2022 8:52 AM T [facility] HCT 39.5 34.9 - 44.5 % 06/26/2022 8:52 AM CDT [facility] MCV 93.2 80.0 - 100.0 fL 06/26/2022 8:52 AM CDT [facility] MCH 31.1 27.6 - 33.3 pg 06/26/2022 8:52 AM CDT [facility] MCHC 33.4 31.5 - 35.2 g/dL 06/26/2022 8:52 AM T [facility] RDW 12.3 11.9 - 15.5 % 06/26/2022 8:52 AM T [facility] Platelets 440 150 - 450 x10(9)/L 06/26/2022 8:52 AM CDT [facility] Blood Venipuncture / Unknown 06/26/2022 8:49 AM CDT 06/26/2022 8:49 AM CDT Carolynn Alvarado MD LAB_1 Performing Organization Address City/[facility]/ZIP Co de Phone Number [facility] [address] [place] [address], [facility] [phone] * Vitamin D 25-Hydroxy, Total (06/26/2022 8:49 AM CDT) Vitamin D, 25-OH, Total 36 30 - 80 ng/mL 06/26/2022 3:32 PM CDT [facility] Blood Venipuncture / Unknown 06/26/2022 8:49 AM CDT 06/26/2022 8:49 AM CDT Carolynn Alvarado MD LAB_1 Performing Organization Address [facility] Co de Phone Number [facility] [address] * (ABNORMAL) Lipid Panel and Direct LDL(If Needed) (06/26/2022 8:49 AM CDT) Cholesterol 188 0 - 199 mg/dL 06/26/2022 10:01 AM [facility] Triglyceride 264(H) <=149 mg/dL 06/26/2022 10:01 AM [facility] HDL Cholesterol 47 >=40 mg/dL 10:01 AM [facility] LDL, Calculated 88 <130 mg/dL 10:01 AM [facility] Non HDL Chol, Calculated 141 <=159 mg/dL 06/26/2022 10:01 AM [facility] Cholesterol/HDL Ratio 4.0 06/26/2022 10:01 AM [facility] Hours Fasting 12 06/26/2022 10:01 AM CDT [facility] Blood Venipuncture / Unknown 06/26/2022 8:49 AM CDT 06/26/2022 8:49 AM CDT Carolynn Alvarado MD LAB_1 [facility] [address] [place] [address], [facility] [phone] [facility] [address] [place] [address], [facility] [phone] documented in this encounter Visit Diagnoses Diagnosis Mixed hyperlipidemia (HRC) Mixed hyperlipidemia Vitamin D deficiency (HRC) Unspecified vitamin D deficiency Acute non-recurrent maxillary sinusitis Screening for thyroid disorder documented in this encounter Additional Health Concerns Infection Onset Date Last Indicated Resolved Time 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
--- OUTSIDE RECORDS SUMMARY | 2023-04-05 09:24 | XMS_ITS | Encounter Summary ---
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 [place], [place] [phone] Sin Castorena MD [address] [place] [address] Exudative age-related macular degeneration of [...] encounter Patient Instructions * Patient Instructions* Leah Allred COA - 05/28/2022 10:15 AM CDT Control your blood pressure, blood [...] to keep the eye closed or use [id number]-[id number] artificial tears for comfort. You may see [...] Eye discharge (other than tears/bloody tears) Call [phone] with any problems. documented in this encounter Progress Notes * Sin Castorena MD - 05/28/2022 10:15 AM CDT Last visit with Dr. Castorena 04/29/[address] Vyas 03/07/22 The medications, [...] w/ injections - Plan - LORRAINE OD #3 05/28/22 - f/u 4 weeks, LORRAINE OD #4 v LATRICIA OD #1 - LATRICIA PA requested #) ERM, OS [...] Follow up in 4 week, LORRAINE OD #4 v LATRICIA OD #1, dil OU, OCT on arrival Last DFE: 03/2022 Further [...] Procedure Notes * Leah Allred COA - 05/28/2022 10:15 AM CDT Intravitreal Injection Operative Report Eye: Right Surgeon: iSn Castorena MD Medicaton: Avastin 0.05 mL (1.25mg) Lot number: [id number], Exp 08/17/22 Anesthesia: tetracaine, akten 5% povidone iodine drop [...] Department Care Team Description 04/10/2023 8:30 AM TRACTOR CRANE OPERATOR Appointment [place] [address] Family Medicine [address] [place] [address] [place] [address] [place] [address] 04/15/2023 10:45 AM TRACTOR CRANE OPERATOR Appointment [facility] [address] [facility]. [place], [place] [address] Sin Castorena MD [address] [place], [place] [address] documented as of this encounter Visit Diagnoses [...] documented as of this encounter Care Teams Tire Trucker Relationship Specialty Start [place] [address] [place] [address] PCP - General Internal Medicine 11/09/15 documented as of this encounter
--- OUTSIDE RECORDS SUMMARY | 2023-04-05 09:24 | XMS_ITS | Encounter Summary ---
Author Name Unknown Organization [facility] Address [address] [place] [address] Care Team Providers Care University Relations Director Name Role Phone Carolynn Alvarado MD Primary Care Provider [phone] Encounter Details Date Type Department Care Team Description 05/08/2022 Notes/Orders [facility] [address] Family Medicine [address] [facility]. [place], [place] [phone] [place] [address] [place] [address] Screening for colon cancer Social History Tobacco [...] Department Care Team Description 04/10/2023 8:30 AM PICKING SUPERVISOR Appointment [place] [address] Family Medicine [address] [place] [address] [place] [address] [place] [address] 04/15/2023 10:45 AM PICKING SUPERVISOR Appointment [facility] [address] [facility] [place] [address] Sin Castorena MD [address] [place], [place] [address] documented as of this encounter Results * FIT Colon Rectal Cancer Screening (07/08/2022 8:00 AM CDT) FIT Specimen 1 Negative Negative 07/09/2022 9:41 AM CDT [facility] Stool 07/08/2022 8:00 AM CDT 07/08/2022 6:44 PM CDT Carolynn Alvarado MD LAB_1 Performing Organization Address City/State/[facility] Co de Phone Number [facility] 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
[2023-04-05 09:30] LABS: Troponin, Point-of-Care* 0.01 ng/ml (0.01-0.04)
[2023-04-05 09:31] LABS: Slide Review Reflex No
[2023-04-05] MEDS: LACTATED RINGERS 1000 ML 1,000 ML IV (09:36)
[2023-04-05 09:41] LABS: Albumin* 3.6 g/dL (3.3-5.0); Chloride* 101 mmol/L (96-114); Potassium* 3.5 mmol/L (3.6-5.1); Sodium* 138 mmol/L (135-149)
[2023-04-05 09:43] LABS: Creatinine* 0.5 mg/dL (0.5-1.5); Est. Creatinine Clearance* 41.97; Estimated Glomerular Filt Rate 98 ml/min
[2023-04-05] MEDS: OXYCODONE 5 MG TABLET PO (09:43)
[2023-04-05 09:44] LABS: Alanine Aminotransferase* 146 U/L (4-35); Alkaline Phosphatase* 150 U/L (40-150); Anion Gap 7 mEq/L (7-15); Aspartate Amino Transferase* 60 U/L (12-35); Bilirubin Total* 0.9 mg/dL (0.1-1.5); Blood Urea Nitrogen* 9 mg/dL (7-30); Calcium* 7.8 mg/dL (8.4-10.6); Carbon Dioxide* 30 mmol/L (20-32); Glucose* 114 mg/dL (60-115); Total Protein* 6.9 g/dL (6.0-8.3)
[2023-04-05] MEDS: dilTIAZem 5 MG/ML inj 20 MG IVP (09:54)
[2023-04-05 09:57] LABS: Troponin I* < 0.01 ng/mL (0.01-0.04)
--- NOTE | 2023-04-05 11:01 | ED.NURSE ---
Patient up to bedside commode. Assist of 1. Stand and pivot. C/O pain to left thigh Piotr horse. Dr. Mayer notified.
[2023-04-05 11:07] LABS: C Reactive Protein* 16.4 mg/dL (0.5-1.0)
--- NOTE | 2023-04-05 11:11 | CRLHL7_ITS ---
For Patients: As a result of the Century Cures Act, medical imaging exams and procedure reports are released immediately into your electronic medical record. You may view this report before your referring provider. If you have questions, please contact your health care provider. INDICATION: Palpitations, postop leukocytosis TECHNIQUE: Chest 1 view COMPARISON: None FINDINGS: Cardiovascular and mediastinum: Heart size and vasculature are normal in caliber and appearance, for technique. Lungs and pleural spaces: Lungs are clear. No sign of infiltrate or mass. No sign of pleural effusion. No pneumothorax. Bones and soft tissues: Multiple metallic components in lower cervical spine and in visualized portions of upper lumbar spine. No significant/acute findings. IMPRESSION: No acute or significant findings. Dictated by Catracho May MD @ 04/05/2023 1:30:48 PM (Electronically Signed)
[2023-04-05] MEDS: dexAMETHasone 10 MG/ML inj 6 MG IV (11:25)
--- NOTE | 2023-04-05 12:15 | PC.NURSE ---
Patient up to bedside commode. Tolerated well with SBA.
[2023-04-05] MEDS: METOPROLOL TARTRATE 25 MG TABLET PO (13:18)
[2023-04-05 13:41] LABS: Appearance Urine Clear (Clear); Bilirubin Urine Negative (Negative); Blood Urine Trace-lysed (Negative); Color Urine Yellow (Yellow); Glucose Urine Negative (Negative); Ketones Urine 1+ (Negative); Leukocyte Esterase Urine Negative (Negative); Nitrite Urine Negative (Negative); Protein Urine Negative (Negative); Specific Gravity Urine 1.015 (1.000-1.030); Urobilinogen Urine 0.2 (0.2-1.0); pH Urine 8.5 (5.0-8.5)
[2023-04-05 13:56] LABS: Squamous Epithelial Cell Urine Few (None-Few); WBC Urine 0-2 (0-5)
[2023-04-05] MEDS: MORPHINE 4 MG/ML INJ IVP (14:56)
--- NOTE | 2023-04-05 15:15 | PC.NURSE ---
Patient now in SR. Dr. Mayer notified of change.
--- NOTE | 2023-04-05 16:04 | PC.NURSE ---
Report to [facility] RN. EMS transporting patient now.
== END 2023-04-05 16:16 | disposition other institution (70) ==
PROVIDERS: Emergency Provider Student in an Organized Health Care Education/Training Program
DX: I48.91 Unspecified atrial fibrillation (principal); M79.605 Pain in left leg
CPT/HCPCS: 36415; 71045; 80053; 81001; 84484; 85025; 86140; 93005; 96361; 96374; 96375; 96376; 99284; 99285; A9270; J1100; J2270; J7120

== ENCOUNTER 2023-04-05 16:00 | Outpatient (CLI) | payer MEDICARE, OTHER, SELFPAY ==
--- OUTSIDE RECORDS SUMMARY | 2023-04-07 09:36 | XMS_ITS | Patient Health Record ---
Author Name Unknown Organization [facility] Address [address] [place] [address] [address] [place] [address] Care Team Providers Care Fish Stringer Assembler Name Role Phone Carolynn Alvarado Primary Care Provider UnavailLarry Rasheed Unavailable [phone] Phillip Gallagher Unavailable Unavailable ALLERGIES Allergen (clinical [...] chronic pain (G89.29) Active confirmed Chronic pain (61276353) Problem Spondylosis without myelopathy or radiculopathy, lumbosacral region (M47.817) Active confirmed Lumbosacral spondylosis without myelopathy (98943320) Problem Cervicalgia (M54.2) Active confirmed Cervicalgia (07780420) Problem Radiculopathy, lumbosacral region (M54.17) Active confirmed Lumbosacral radiculopathy (0301302) PLAN OF TREATMENT No Information Insurance Providers Payer Name Payer Address Payer Phone Subscriber Number Group Number Insured Name Patient Relationship to Insured Coverage Start Date Coverage End Date [employer] Basic [address] [address] [place] [address] [id number] Michelle Franz Self - patient is the insured 2 Medicare Part B [place]. [address] [place] [address] [id number] Michelle Franz Self - patient is the insured 3 MEDICAL (GENERAL) HISTORY Medical History History ICD Code acid reflux arthritis depression headaches hypertension osteoporosis Surgical History Surgery Date(Month/Year) gall bladder surgery 2018 microdiscectomy 2016,2020,2020 cervical fusions 2014,2017,2020 Hospitalization History Reason Date(Month/Year) see surgical history
== END 2023-04-05 16:01 | disposition home or self-care (01) ==
LOC: AMB 04-07 09:34
PROVIDERS: Visit Provider Student in an Organized Health Care Education/Training Program
DX: M79.605 Pain in left leg (principal); I48.91 Unspecified atrial fibrillation
CPT/HCPCS: A0425; A0426

== ENCOUNTER 2023-04-10 07:06 | Outpatient (CLI) | payer MEDICARE, OTHER, SELFPAY ==
--- OUTSIDE RECORDS SUMMARY | 2023-04-11 15:59 | XMS_ITS | Clinical Summary ---
Author Name Unknown Organization [facility] Address [address] [place] [address] Care Team Providers [employer] Truck [employer] Name Role Phone Carolynn Alvarado MD Primary Care Provider [phone] [facility], [facility] Unavailable Allergies Active Allergy Reactions Criticality Noted Date Comments Lisinopril 03/26/2023 COHEN Medications Medication Sig Dispensed Refills Start Date End Date Status medical supply, miscellaneous (ELECTRICAL BONE GROWTH STIMULATOR)Indicat ions:S/P lumbar fusion Company: [employer] - for home use. 1 each 0 [...] pregabalin (LYRICA) 25 mg oral capsule Take 1 capsule (25 mg) by mouth twice a day. 0 [...] 12 capsule 0 4 Suspended Additional Information dexAMETHasone (DECADRON) 4 mg oral tablet Take 1 tablet (4 mg) by mouth every 8 (eight) hours. After 2 days, take 1 tablet every 12 hours. Then, after 2 more days, take 1 tablet per day. Continue 1 tablet per day for 2 additional days 12 tablet 0 4 Suspended Additional Information polyethylene glycol (MIRALAX) 17 gram oral powder Take 17 g by mouth twice a day. Mix each dose in 4-8 ounces of liquid as directed. 510 g 0 4 Suspended Additional Information docusate sodium (COLACE) 100 mg oral capsule Take 1 capsule (100 mg) by mouth twice a day. 30 capsule 0 4 Suspended Additional Information methocarbamoL (ROBAXIN) 500 mg oral tablet Take 1 tablet (500 mg) by mouth every 6 (six) hours as needed. 0 Suspended Active Problems Problem Noted Date Diagnosed Date Intractable pain 04/10/2023 Acute pain of left lower extremity 04/05/2023 Lumbar radiculopathy 04/01/2023 Encounters Date Type Department Care Team Description 04/10/2023 8:14 AM TELEGRAPHIC TYPEWRITER REPAIRER - Present Hospital Encounter [id number] [place] [address] [place] [id number] Nura Medina MD Hanson, Kristin R, MD Intractable pain 04/10/2023 Travel 04/05/2023 5:15 PM TELEGRAPHIC TYPEWRITER REPAIRER - 04/07/2023 2:20 PM TELEGRAPHIC TYPEWRITER REPAIRER Hospital Encounter [id number] [place] [address] [place] [address] Sergio Lara, Chuck Borges MD -Hospitalist Acute pain of left lower extremity Discharge Disposition: Returning Home/Self Care 04/01/2023 7:25 AM TELEGRAPHIC TYPEWRITER REPAIRER - 04/01/2023 11:50 AM [facility] Surgery [facility] Operating Room [address] [place] [address] [place] [id number] Isai Foss MD L1-5 POSTERIOR FUSION WITH INSTRUMENTATION WITH NEURO MONITORING 04/01/2023 5:52 AM TELEGRAPHIC TYPEWRITER REPAIRER - 04/03/2023 3:20 PM TELEGRAPHIC TYPEWRITER REPAIRER Hospital Encounter [id number] [place] [address] [place] [id number] Isai Foss MD Lumbar radiculopathy Discharge Disposition: Returning Home/Self Care 04/01/2023 Travel 03/28/2023 Prep For Procedure NMR PROVIDER [address] [place] [address] [place] [address] [place] Thorne, PABenoit 03/26/2023 Travel 03/12/2023 Travel from Last 3 Months Social History Tobacco Use Types Packs/Day Years Used Date Smoking Tobacco: Never Smokeless Tobacco: Never Tobacco Cessation:Counseling Given: Not Answered Alcohol Use Standard Drinks/Week Comments Never 0 (1 standard drink = 0.6 oz pur e alcohol) [facility] Utilities Answer Date Recorded In the past 12 months has th e [employer], gas, oil, or water company threatened to shut off services in your home? No 04/10/2023 Humiliation, Afraid, Rape, and Kick questionnair e Answer Date Recorded Within the last year, have y ou been afraid of your partner or ex-partner? No 04/10/2023 Within the last year, have y ou been humiliated or emotionally abused in other ways by your partner or ex-partner? No Within the last year, have y ou been kicked, hit, slapped, or otherwise physically hurt by your partner or ex-partner? No 04/10/2023 Within the last year, have y ou been raped or forced to have any kind of sexual activity by your partner or ex-partner? No 04/10/2023 Hunger Vital Sign Answer Date Recorded Within the past 12 months, y ou worried that your food would run out before you got the money to buy more. Never true 04/10/19 24 Within the past 12 months, t he food you bought just didn't last and you didn't have money to get more. Never true 04/10/2023 PRAPARE - Transportation Answer Date Re corded In the past 12 months, has l ack of transportation kept you from medical appointments or from getting medications? No 03/18 In the past 12 months, has l ack of transportation kept you from meetings, work, or from getting things needed for daily living? No 04/10/2023 Housing Stability Vital Sign Answer Shailesh e Recorded In the last 12 months, was t here a time when you were not able to pay the mortgage or rent on time? No 04/10/2023 In the last 12 months, how many places have you lived? 1 04/10/2023 In the last 12 months, was t here a time when you did not have a steady place to sleep or slept in a half-way (including now)? No 04/10/2023 Sex and Gender Information Value Date Recorded Sex Assigned at Female 03/11/2023 11:10 AM TELEGRAPHIC TYPEWRITER REPAIRER Gender Identity Female 03/11/2023 11:10 AM TELEGRAPHIC TYPEWRITER REPAIRER Sexual Orientation Straight 03/11/2023 11 :10 AM TELEGRAPHIC TYPEWRITER REPAIRER Last Filed Vital Signs Vital Sign Reading Time Taken Comments Blood Pressure 107/74 04/11/2023 3:08 PM TELEGRAPHIC TYPEWRITER REPAIRER Pulse 94 04/11/2023 3:08 PM TELEGRAPHIC TYPEWRITER REPAIRER Temperature 36.6 ??C (97.8 ??F) 04/11/2023 11:[address] Respiratory Rate 18 04/11/2023 4:46 AM TELEGRAPHIC TYPEWRITER REPAIRER Oxygen Saturation 99% 04/11/2023 12:30 PM TELEGRAPHIC TYPEWRITER REPAIRER Inhaled Oxygen Concentration - - Weight 60 kg (132 lb 4.4 oz) 04/10/2023 8:00 PM TELEGRAPHIC TYPEWRITER REPAIRER Height 162.6 cm (5' 4) 04/10/2023 8:00 PM TELEGRAPHIC TYPEWRITER REPAIRER Body Mass Index 22.71 04/10/2023 8:00 PM TELEGRAPHIC TYPEWRITER REPAIRER Plan of Treatment Health Maintenance Due Date [...] history exists Medical Devices Implanted Type Area Hospice Case Manager Device Identifier Shelf Expiration Date Model / Serial / Lot Cancellous Chips 30cc - [id number] Implanted:Qty : 1 on 04/01/2023 by Isai Foss MD at [facility] Bone N/A: Spine Lumbar [employer] 01/23/2027 [id number] / [id number] / Infuse Med - [id number] Implanted:Qty : 1 on 04/01/2023 by Isai Foss MD at [facility] Prosthetic Implant Non-Specific N/A: Spine Lumbar [employer] Sofamor Danek 09/14/2024 [id number] / / [id number] 5.5mm Ti Alloy Curved Jarred, 125mm Implanted:Qty : 2 on 04/01/2023 by Isai Foss MD at [facility] Back [id number] / / Description:MFTR: [employer] Procedures The patient is currently admitted. The information in this section might not be complete until the patient is discharged. Procedure Name Priority Date/Time Associated Diagnosis Comments PROCALCITONIN Add On 04/11/2023 11:22 AM TELEGRAPHIC TYPEWRITER REPAIRER CALCIUM, IONIZED STAT 04/11/2023 11:22 AM TELEGRAPHIC TYPEWRITER REPAIRER PROTIME/INR STAT 04/11/2023 11:22 AM TELEGRAPHIC TYPEWRITER REPAIRER MAGNESIUM STAT 04/11/2023 11:22 AM TELEGRAPHIC TYPEWRITER REPAIRER COMPREHENSIVE METABOLIC PANEL STAT 04/11/2023 11:22 AM TELEGRAPHIC TYPEWRITER REPAIRER LIPASE STAT 04/11/2023 11:22 AM TELEGRAPHIC TYPEWRITER REPAIRER CBC (HGB,HCT,WBC,RBC,KURTIS TELET) STAT 04/11/2023 11:22 AM TELEGRAPHIC TYPEWRITER REPAIRER US VENOUS EXTREM LOW RT Routine 04/10/2023 7:29 PM TELEGRAPHIC TYPEWRITER REPAIRER XR CHEST AP PORT STAT 04/10/2023 2:05 PM TELEGRAPHIC TYPEWRITER REPAIRER CT RECONSTRUCTION SPINE LUMBAR STAT 04/10/2023 11:14 AM TELEGRAPHIC TYPEWRITER REPAIRER CT ABDOMEN & PELVIS W/O ORAL W IV CON STAT 04/10/2023 11:12 AM TELEGRAPHIC TYPEWRITER REPAIRER URINE MACROSCOPIC (POCT) DIP Routine 04/10/2023 9:53 AM TELEGRAPHIC TYPEWRITER REPAIRER PROCALCITONIN Add On 04/10/2023 9:15 AM TELEGRAPHIC TYPEWRITER REPAIRER LIPASE STAT 04/10/2023 9:15 AM TELEGRAPHIC TYPEWRITER REPAIRER LIVER PROFILE STAT 04/10/2023 9:15 AM TELEGRAPHIC TYPEWRITER REPAIRER CBC/DIFF STAT 04/10/2023 9:15 AM TELEGRAPHIC TYPEWRITER REPAIRER BASIC METAB PROFILE STAT 04/10/2023 9 :15 AM TELEGRAPHIC TYPEWRITER REPAIRER CK TOTAL Routine 04/07/2023 7:01 AM TELEGRAPHIC TYPEWRITER REPAIRER CBC/DIFF Routine 04/07/2023 7:01 AM TELEGRAPHIC TYPEWRITER REPAIRER COMPREHENSIVE METABOLIC PANEL Routine 04/07/2023 7:01 AM TELEGRAPHIC TYPEWRITER REPAIRER CT SPINE LUMBAR W/O CON Routine 04/06/2023 12:10 PM TELEGRAPHIC TYPEWRITER REPAIRER XR PELVIS & HIP LATERAL BILAT Routine 04/06/2023 10:07 AM TELEGRAPHIC TYPEWRITER REPAIRER HBA1C / EAG Add On 04/05/2023 7:07 PM TELEGRAPHIC TYPEWRITER REPAIRER CK TOTAL Add On 04/05/2023 7:07 PM TELEGRAPHIC TYPEWRITER REPAIRER COMPREHENSIVE METABOLIC PANEL Routine 04/05/2023 7:07 PM TELEGRAPHIC TYPEWRITER REPAIRER CBC (HGB,HCT,WBC,RBC,KURTIS TELET) Routine 04/05/2023 7:07 PM TELEGRAPHIC TYPEWRITER REPAIRER HEMOGLOBIN Routine 04/03/2023 7:00 AM TELEGRAPHIC TYPEWRITER REPAIRER HEMOGLOBIN Timed Procedure 04/02/2023 3:26 PM TELEGRAPHIC TYPEWRITER REPAIRER XR SPINE LUMBAR ROUTINE STAT 04/02/2023 10:43 AM TELEGRAPHIC TYPEWRITER REPAIRER EXTRA TUBE-SST (LAB USE ONLY) Routine 04/02/2023 7:28 AM TELEGRAPHIC TYPEWRITER REPAIRER HEMOGLOBIN Routine 04/02/2023 7:28 AM TELEGRAPHIC TYPEWRITER REPAIRER XR C-ARM SPINE STAT 04/01/2023 10:36 AM TELEGRAPHIC TYPEWRITER REPAIRER INTUBATION Routine 04/01/2023 8:15 AM TELEGRAPHIC TYPEWRITER REPAIRER SPIN BONE AUTOGRFT LOCAL 04/01/2023 7:29 AM TELEGRAPHIC TYPEWRITER REPAIRER Degeneration of lumbar intervertebral disc ALLOGRAFT FOR SPINE SURGERY ONLY MORSELIZED 04/01/2023 7:29 AM TELEGRAPHIC TYPEWRITER REPAIRER Degeneration of lumbar intervertebral disc INSERT VERT FIX DEV,POST,3-6 * 04/01/2023 7:29 AM TELEGRAPHIC TYPEWRITER REPAIRER Degeneration of lumbar intervertebral disc SPINE FUSN,POST TECH,EA ADDNL* 04/01/2023 7:29 AM TELEGRAPHIC TYPEWRITER REPAIRER Degeneration of lumbar intervertebral disc ARTHRODESIS POSTERIOR/POSTEROLAT ERAL LUMBAR 04/01/2023 7:29 AM TELEGRAPHIC TYPEWRITER REPAIRER Degeneration of lumbar intervertebral disc ABORH CONFIRM (LAB USE ONLY) STAT 04/01/2023 6:47 AM TELEGRAPHIC TYPEWRITER REPAIRER HEMATOCRIT STAT 04/01/2023 6:46 AM TELEGRAPHIC TYPEWRITER REPAIRER HEMOGLOBIN STAT 04/01/2023 6:46 AM TELEGRAPHIC TYPEWRITER REPAIRER TYPE AND SCREEN STAT 04/01/2023 6:46 AM TELEGRAPHIC TYPEWRITER REPAIRER PARTIAL THROMBOPLASTIN TIME STAT 04/01/2023 6:46 AM TELEGRAPHIC TYPEWRITER REPAIRER PROTIME/INR STAT 04/01/2023 6:46 AM TELEGRAPHIC TYPEWRITER REPAIRER POCT GLU METER STAT 04/01/2023 6:12 AM TELEGRAPHIC TYPEWRITER REPAIRER from Last 3 Months Results * Procalcitonin (04/11/2023 11:22 AM TELEGRAPHIC TYPEWRITER REPAIRER) Only the most recent of2 resultswithin the time period is included. Procalcitonin <0.04 <=0.05 ng/mL 04/11/2023 2:56 PM [facility] Blood Venipuncture / Unknown 04/11/2023 11:22 AM TELEGRAPHIC TYPEWRITER REPAIRER 04/11/2023 11:30 AM TELEGRAPHIC TYPEWRITER REPAIRER Narrative [facility] - 04/11/2023 2:56 PM [facility] PROCALCITONIN REFERENCE RANGE <0.1 ng/mL: ?Bacterial infection very unlikely, ?antibiotics strongly discouraged. ? 0.1-0.25 ng/mL: ??Bacterial infection unlikely, ?antibiotics discouraged. ? 0.25-0.5 ng/mL: ??Local bacterial infection likely, antibiotics ?recommended. There is a low risk of progression to ?severe systemic infection (severe sepsis/septic shock). ? 0.5-2.0 ng/mL: ?? Bacterial infection is very likely and ?antibiotics are strongly recommended. Systemic infection is ?possible. There is a moderate risk for progression to ?severe systemic infection or sepsis. Repeat testing in ?6-24 hrs should be considered to evaluate further for sepsis. >2 ng/mL: ?? Systemic infection is likely. There is a high risk ?for progression to severe systemic infection or sepsis. ? >10 ng/mL: ??Level almost exclusive due to severe bacterial ?sepsis. High likelihood of severe sepsis or septic shock. ? Ivis Leach MD CHEMISTRY ORDERABLE [facility] [place] [place] [address] * (ABNORMAL) Calcium, Ionized (04/11/2023 11:22 AM TELEGRAPHIC TYPEWRITER REPAIRER) Calcium, Ionized 1.12(L) 1.13 - 1.32 mmol/L 04/11/2023 11:34 AM TELEGRAPHIC TYPEWRITER REPAIRER [facility] Blood Venipuncture / Unknown 04/11/2023 11:22 AM TELEGRAPHIC TYPEWRITER REPAIRER 04/11/2023 11:29 AM TELEGRAPHIC TYPEWRITER REPAIRER Ivis Leach MD CHEMISTRY ORDERABLE Performing Organization Address [facility] Phone Number [facility] [place] [address] * Magnesium (04/11/2023 11:22 AM TELEGRAPHIC TYPEWRITER REPAIRER) Magnesium 2.4 1.6 - 2.6 mg/dL 04/11/2023 12:02 PM TELEGRAPHIC TYPEWRITER REPAIRER [facility] Blood Venipuncture / Unknown 04/11/2023 11:22 AM TELEGRAPHIC TYPEWRITER REPAIRER 04/11/2023 11:30 AM TELEGRAPHIC TYPEWRITER REPAIRER Ivis Leach MD CHEMISTRY ORDERABLE Performing Organization Address [facility] Number [facility] [place] [address] * (ABNORMAL) Lipase (04/11/2023 11:22 AM TELEGRAPHIC TYPEWRITER REPAIRER) Only the most recent of2 resultswithin the time period is included. Lipase 186(H) 12 - 53 U/L 04/11/2023 12:02 PM TELEGRAPHIC TYPEWRITER REPAIRER [facility] Blood Venipuncture / Unknown 04/11/2023 11:22 AM TELEGRAPHIC TYPEWRITER REPAIRER 04/11/2023 11:30 AM TELEGRAPHIC TYPEWRITER REPAIRER Ivis Leach MD CHEMISTRY ORDERABLE Performing Organization Address [facility] de Phone Number [facility] [address] [place] [address] * (ABNORMAL) Comprehensive Metabolic Panel (04/11/2023 11:22 AM [facility]) Only the most recent of3 resultswithin the time period is included. Sodium 137 136 - 145 mmol/L 04/11/2023 12:02 PM [facility] Potassium 3.5 3.4 - 5.1 mmol/L 04/11/2023 12:02 PM [facility] Chloride 102 98 - 108 mmol/L 04/11/2023 12:02 PM [facility] Carbon Dioxide 29 20 - 31 mmol/L 04/11/2023 12:02 PM [facility] BUN (Urea Nitro) 20 9 - 23 mg/dL 04/11/2023 12:02 PM [facility] Creatinine 0.74 0.55 - 1.02 mg/dL 04/11/2023 12:02 PM [facility] Est GFR (CKD-EPI) >60.00 >60.00 mL/min/1. 73m2 04/11/2023 12:02 PM [facility] Comment:Calculation based on the Chronic Kidney Disease Epidemiology Collaboration (CKD-EPI) equation refit without adjustment for race. Glucose 90 74 - 106 mg/dL 04/11/2023 12:02 PM [facility] Calcium, Serum 8.6(L) 8.7 - 10.4 mg/dL 04/11/2023 12:02 PM [facility] Anion Gap 6.0 0.0 - 15.0 mmol/L 04/11/2023 12:02 PM [facility] Albumin 3.3(L) 3.4 - 5.0 g/dL 04/11/2023 12:02 PM [facility] Bilirubin-Total 0.4 0.3 - 1.2 mg/dL 04/11/2023 12:02 PM [facility] Alkaline Phosphatase 96 46 - 116 U/L 04/11/2023 12:02 PM [facility] Protein Total 6.7 5.7 - 8.2 g/dL 04/11/2023 12:02 PM [facility] AST (SGOT) <8(L) 13 - 40 U/L 04/11/2023 12:02 PM [facility] ALT 36 7 - 40 U/L 04/11/2023 12:02 PM [facility] Blood Venipuncture / Unknown 04/11/2023 11:22 AM TELEGRAPHIC TYPEWRITER REPAIRER 04/11/2023 11:30 AM TELEGRAPHIC TYPEWRITER REPAIRER Ivis Leach MD CHEMISTRY ORDERABLE [facility] [address] [place] [address] * (ABNORMAL) CBC (Hgb,Hct,WBC,RBC,Platelet) (04/11/2023 11:22 AM [facility]) Only the most recent of2 resultswithin the time period is included. WBC 20.3(H) 4.3 - 10.8 K/uL 04/11/2023 11:50 AM [facility] RBC 3.67(L) 4.20 - 5.40 M/uL 04/11/2023 11:50 AM [facility] Hemoglobin 11.5(L) 12.0 - 16.0 gm/dL 04/11/2023 11:50 AM [facility] Hematocrit 34.0(L) 36.0 - 48.0 % 04/11/2023 11:50 AM [facility] MCV 93 80 - 100 fL 04/11/2023 11:50 AM [facility] MCH 31 27 - 33 pg 04/11/2023 11:50 AM [facility] MCHC 34 33 - 36 gm/dL 04/11/2023 11:50 AM [facility] RDW 13.2 11.5 - 14.5 % 04/11/2023 11:50 AM [facility] Platelet Count 795(H) 150 - 400 K/UL 04/11/2023 11:50 AM [facility] MPV 8.5 6.5 - 12 fL 04/11/2023 11:50 AM [facility] Blood Venipuncture / Unknown 04/11/2023 11:22 AM TELEGRAPHIC TYPEWRITER REPAIRER 04/11/2023 11:30 AM TELEGRAPHIC TYPEWRITER REPAIRER Ivis Leach MD HEMATOLOGY ORDERABLE Performing Organization Address [facility] Co de Phone Number [facility] [place] [id number] * Protime/INR (04/11/2023 11:22 AM TELEGRAPHIC TYPEWRITER REPAIRER) Only the most recent of2 resultswithin the time period is included. INR 1.0 0.9 - 1.2 04/11/2023 11:42 AM TELEGRAPHIC TYPEWRITER REPAIRER [facility] Blood Venipuncture / Unknown 04/11/2023 11:22 AM TELEGRAPHIC TYPEWRITER REPAIRER 04/11/2023 11:28 AM TELEGRAPHIC TYPEWRITER REPAIRER Ivis Leach MD COAGULATION ORDERABL E Performing Organization Address [facility] de Phone Number [facility] [place] [address] * US VENOUS LOW RT (04/10/2023 7:29 PM TELEGRAPHIC TYPEWRITER REPAIRER) Anatomical Region Laterality Modality Extremity Ultrasound 04/10/2023 7:32 PM TELEGRAPHIC TYPEWRITER REPAIRER Impressions 04/10/2023 7:32 PM TELEGRAPHIC TYPEWRITER REPAIRER IMPRESSION: No evidence of deep venous thrombosis in the right leg. Report signed by Bogdan Fox M.D. Narrative 04/10/2023 7:32 PM TELEGRAPHIC TYPEWRITER REPAIRER EXAM: US VENOUS EXTREM LOW RT DATE: ??04/10/2023 7:03 PM COMPARISON: None CLINICAL DATA: Leg pain and swelling, R10.9 Unspecified abdominal pain TECHNIQUE: Grayscale and color duplex Doppler imaging with spectral wave form analysis of the deep venous structures of the leg, from the level of the groin to the level of the upper calf. FINDINGS: Common Femoral Vein: Compressible. No thrombus demonstrated. Normal phasic waveform. Proximal Femoral Vein: Compressible. No thrombus demonstrated. Normal phasic waveform. Mid Femoral Vein: Compressible. No thrombus demonstrated. Normal phasic waveform. Distal: Femoral Vein: Compressible. No thrombus demonstrated. Normal phasic waveform. Popliteal vein: Compressible. No thrombus demonstrated. Normal phasic waveform. Peroneal vein: No thrombus seen at the level of the upper calf. Posterior tibial vein: No thrombus seen at the level of the upper calf. Saphenofemoral junction: Normal Procedure Note Bogdan Fox MD - 04/10/2023 EXAM: US VENOUS EXTREM LOW RT DATE: 04/10/2023 7:03 PM COMPARISON: None CLINICAL DATA: Leg pain and swelling, R10.9 Unspecified abdominal pain TECHNIQUE: Grayscale and color duplex Doppler imaging with spectral waveform analysis of the deep venous structures of the leg, from the level ofthe groin to the level of the upper calf. FINDINGS: Common Femoral Vein: Compressible. No thrombus demonstrated. Normal phasicwaveform. Proximal Femoral Vein: Compressible. No thrombus demonstrated. Normalphasic waveform. Mid Femoral Vein: Compressible. No thrombus demonstrated. Normal phasicwaveform. Distal: Femoral Vein: Compressible. No thrombus demonstrated. Normalphasic waveform. Popliteal vein: Compressible. No thrombus demonstrated. Normal phasicwaveform. Peroneal vein: No thrombus seen at the level of the upper calf. Posterior tibial vein: No thrombus seen at the level of the upper calf. Saphenofemoral junction: Normal IMPRESSION IMPRESSION: No evidence of deep venous thrombosis in the right leg. Report signed by Bogdan Fox M.D. Ivis Leach MD ULTRASOUND ORDERABLE * XR CHEST AP PORT (04/10/2023 2:05 PM TELEGRAPHIC TYPEWRITER REPAIRER) Anatomical Region Laterality Modality Chest Computed Radiogr aphy 04/10/2023 2:11 PM TELEGRAPHIC TYPEWRITER REPAIRER Impressions 04/10/2023 2:15 PM TELEGRAPHIC TYPEWRITER REPAIRER IMPRESSION: No acute finding in the chest. Clear lungs. REPORT SIGNED BY DR. Florian Sampson Narrative 04/10/2023 2:15 PM TELEGRAPHIC TYPEWRITER REPAIRER EXAM: XR CHEST AP PORT DATE: 04/10/2023 2:05 PM CLINICAL DATA: Leukocytosis. COMPARISON: None. FINDINGS: Portable AP exam. The lungs are clear with fairly large volumes. Heart size normal. Tortuous aorta with distinct contours. Zio patch overlies left upper hemithorax. No pulmonary edema or pleural fluid. No pneumothorax (patient semiupright). Partially imaged instrumentation upper lumbar spine. Procedure Note Florian Sampson MD - 04/10/2023 EXAM: XR CHEST AP PORT DATE: 04/10/2023 2:05 PM CLINICAL DATA: Leukocytosis. COMPARISON: None. FINDINGS: Portable AP exam. The lungs are clear with fairly large volumes. Heart size normal. Tortuous aorta with distinct contours. Zio patchoverlies left upper hemithorax. No pulmonary edema or pleural fluid. No pneumothorax (patient semiupright). Partially imaged instrumentation upper lumbar spine. IMPRESSION IMPRESSION: No acute finding in the chest. Clear lungs. REPORT SIGNED BY DR. Florian Sampson Ivis Leach MD XRAY ORDERABLE * CT Recon L/S Spine (04/10/2023 11:14 AM TELEGRAPHIC TYPEWRITER REPAIRER) Anatomical Region Laterality Modality Spine Computed Tomogra phy 04/10/2023 11:3 5 AM TELEGRAPHIC TYPEWRITER REPAIRER Impressions 04/10/2023 11:52 AM TELEGRAPHIC TYPEWRITER REPAIRER IMPRESSION: 1. ??No adverse interval change since April 06, 2023. 2. ??Multilevel fusion. 3. ??Small foci of gas in the subcutaneous tissues on the comparison exam have resolved. No new definable collection. REPORT SIGNED BY DR. Carmen Duarte Narrative 04/10/2023 11:52 AM TELEGRAPHIC TYPEWRITER REPAIRER EXAM: CT RECONSTRUCTION SPINE LUMBAR DATE: 04/10/2023 10:50 AM CLINICAL DATA: The patient presents from home in [place] via EMS for back and abdominal pain. The patient underwent a spinal fusion on 04/01/22 (9 days ago) and since has had persistent back and diffuse abdominal pain. She was seen in [place] and here at [facility] a few days ago and was told to return if symptoms persisted. This morning, the pain was 10/10 (sharp, thobbing) COMPARISON: April 06, 2023 TECHNIQUE: Multiplanar reformats created at the CT scanner from the axial data. FINDINGS: Alignment is unchanged. Curvature of the spine with multilevel degenerative changes. Multilevel fusion, as before. No finding of hardware failure. No acute fracture. No compression deformity. Bilateral bone grafts. Procedure Note Carmen Duarte MD - 04/10/2023 EXAM: CT RECONSTRUCTION SPINE LUMBAR DATE: 04/10/2023 10:50 AM CLINICAL DATA: The patient presents from home in [place] via EMS forback and abdominal pain. The patient underwent a spinal fusion on 04/01/22(9 days ago) and since has had persistent back and diffuse abdominal pain.She was seen in [place] and here at [facility] a few days ago and was told toreturn if symptoms persisted. This morning, the pain was 10/10 (sharp,thobbing) COMPARISON: April 06, 2023 TECHNIQUE: Multiplanar reformats created at the CT scanner from the axialdata. FINDINGS: Alignment is unchanged. Curvature of the spine with multileveldegenerative changes. Multilevel fusion, as before. No finding of hardwarefailure. No acute fracture. No compression deformity. Bilateral bonegrafts. IMPRESSION IMPRESSION: 1. No adverse interval change since April 06, 2023. 2. Multilevel fusion. 3. Small foci of gas in the subcutaneous tissues on the comparison examhave resolved. No new definable collection. REPORT SIGNED BY DR. Carmen Duarte Nura Medina MD CT ORDERABLE * CT ABDOMEN & PELVIS W/O ORAL W IV CON (04/10/2023 11:12 AM TELEGRAPHIC TYPEWRITER REPAIRER) Anatomical Region Laterality Modality ABD/Pelvis Computed Tomogra phy 04/10/2023 11:2 8 AM TELEGRAPHIC TYPEWRITER REPAIRER Impressions 04/10/2023 11:35 AM TELEGRAPHIC TYPEWRITER REPAIRER IMPRESSION: ?? 1. ??Dilated intrahepatic and extrahepatic bile ducts in the setting of prior cholecystectomy. Correlate with laboratory values to assess for biliary stasis. 2. ??No other acute finding in the abdomen or pelvis. 3. ??Scoliosis. Multilevel fusion, similar to the recent comparison exam. No finding of hardware failure. REPORT SIGNED BY DR. CARMEN DUARTE Narrative 04/10/2023 11:35 AM TELEGRAPHIC TYPEWRITER REPAIRER EXAM: ??CT ABDOMEN & PELVIS W/O ORAL W IV CON DATE: 04/10/2023 10:50 AM CLINICAL DATA: ??The patient presents from home in [place] via EMS for back and abdominal pain. The patient underwent a spinal fusion on 04/01/22 (9 days ago) and since has had persistent back and diffuse abdominal pain. She was seen in [place] and here at [facility] a few days ago and was told to return if symptoms persisted. This morning, the pain was 10/10 (sharp, thobbing COMPARISON: April 06, 2023 TECHNIQUE: Thin section contiguous transaxial images were obtained through the abdomen and pelvis with intravenous contrast. ??No oral contrast given. ??Coronal reformations were also obtained through the abdomen and pelvis. ?? CONTRAST: 100 cc intravenous injection of nonionic contrast. FINDINGS: ?? Probable areas of atelectasis at the lung bases. No pleural effusion. Normal liver contour. No focal liver lesion. Dilated intrahepatic and extrahepatic bile ducts in the setting of prior cholecystectomy. Pancreas enhances homogeneously. Spleen is normal. No adrenal mass. Symmetric nephrograms. No hydronephrosis or renal parenchymal thinning. Visible ureters are decompressed. Urinary bladder is collapsed. Colonic diverticulosis. Redundant colon. No colonic wall thickening. Air in the lumen of a decompressed retrocecal appendix. No small bowel dilatation. Stomach is decompressed. Small hiatal hernia. Vascular calcifications. Flattened IVC, suggesting a hypovolemic state. No adenopathy by size criteria. Curvature of the spine. Multilevel fusion with bone graft material, as on the recent comparison exam. No new compression deformity. No finding of hardware failure. Remote left-sided pubic rami fractures. Procedure Note Carmen Duarte MD - 04/10/2023 EXAM: CT ABDOMEN & PELVIS W/O ORAL W IV CON DATE: 04/10/2023 10:50 AM CLINICAL DATA: The patient presents from home in [place] via EMS forback and abdominal pain. The patient underwent a spinal fusion on 04/01/22(9 days ago) and since has had persistent back and diffuse abdominal pain.She was seen in [place] and here at [facility] a few days ago and was told toreturn if symptoms persisted. This morning, the pain was 10/10 (sharp,thobbing COMPARISON: April 06, 2023 TECHNIQUE: Thin section contiguous transaxial images were obtained throughthe abdomen and pelvis with intravenous contrast. No oral contrast given.Coronal reformations were also obtained through the abdomen and pelvis. CONTRAST: 100 cc intravenous injection of nonionic contrast. FINDINGS: Probable areas of atelectasis at the lung bases. No pleural effusion. Normal liver contour. No focal liver lesion. Dilated intrahepatic andextrahepatic bile ducts in the setting of prior cholecystectomy. Pancreasenhances homogeneously. Spleen is normal. No adrenal mass. Symmetric nephrograms. No hydronephrosis or renalparenchymal thinning. Visible ureters are decompressed. Urinary bladder iscollapsed. Colonic diverticulosis. Redundant colon. No colonic wall thickening. Airin the lumen of a decompressed retrocecal appendix. No small boweldilatation. Stomach is decompressed. Small hiatal hernia. Vascular calcifications. Flattened IVC, suggesting a hypovolemic state. Noadenopathy by size criteria. Curvature of the spine. Multilevel fusion with bone graft material, as onthe recent comparison exam. No new compression deformity. No finding ofhardware failure. Remote left-sided pubic rami fractures. IMPRESSION IMPRESSION: 1. Dilated intrahepatic and extrahepatic bile ducts in the setting ofprior cholecystectomy. Correlate with laboratory values to assess forbiliary stasis. 2. No other acute finding in the abdomen or pelvis. 3. Scoliosis. Multilevel fusion, similar to the recent comparison exam.No finding of hardware failure. REPORT SIGNED BY DR. CARMEN DUARTE Nura Medina MD CT ORDERABLE * (ABNORMAL) Urine Macroscopic (POCT) Dip (04/10/2023 9:53 AM TELEGRAPHIC TYPEWRITER REPAIRER) PH URINE 7.0 4.5 - 8.0 04/10/2023 9:50 AM [facility] SP.GRAVITY, UA 1.015 1.015 - 1.025 04/10/2023 9:50 AM [facility] Glucose, UA Negative Negative mg/dL 04/10/2023 9:50 AM [facility] Ketone, UA Negative Negative mg/dL 04/10/2023 9:50 AM [facility] OCCULT BLOOD, UA Negative Negative, Trace, TRACE-LYSED, TRACE-INTACT 04/10/2023 9:50 AM [facility] Bilirubin, UA Negative Negative 04/10/2023 9:50 AM [facility] UROBILINOGEN, UA 1.0 0.2 - 1.0 EU/dL 04/10/2023 9:50 AM [facility] NITRITE, UA Negative Negative 04/10/2023 9:50 AM [facility] WBC ESTERASE, UA Negative Negative, Trace 04/10/2023 9:50 AM [facility] PROTEIN, UA 30(A) Negative, Trace mg/dL 04/10/2023 9:50 AM [facility] Urine 04/10/2023 9:53 AM TELEGRAPHIC TYPEWRITER REPAIRER 04/10/2023 9:50 AM TELEGRAPHIC TYPEWRITER REPAIRER Nura Medina MD LAB POINT OF CARE TE ST RESULTS Performing Organization Address [facility]/ZIP Co de Phone Number [facility] [address] [place] [address] * (ABNORMAL) LFTs (04/10/2023 9:15 AM TELEGRAPHIC TYPEWRITER REPAIRER) ALT 48(H) 7 - 40 U/L 04/10/2023 9:47 AM [facility] Alkaline Phosphatase 101 46 - 116 U/L 04/10/2023 9:47 AM [facility] AST (SGOT) 14 13 - 40 U/L 04/10/2023 9:47 AM [facility] Protein Total 7.0 5.7 - 8.2 g/dL 04/10/2023 9:47 AM [facility] Albumin 3.3(L) 3.4 - 5.0 g/dL 04/10/2023 9:47 AM [facility] Bilirubin-Direct 0.13 <0.40 mg/dL 04/10/2023 9:47 AM [facility] Bilirubin-Total 0.4 0.3 - 1.2 mg/dL 04/10/2023 9:47 AM [facility] Blood 04/10/2023 9:15 AM TELEGRAPHIC TYPEWRITER REPAIRER 04/10/2023 9:20 AM TELEGRAPHIC TYPEWRITER REPAIRER Nura Medina MD CHEMISTRY ORDERABLE Performing Organization Address City/[facility]/ZIP Co de Phone Number [facility] [address] [place] [id number] * (ABNORMAL) Basic Metabolic Profile (04/10/2023 9:15 AM TELEGRAPHIC TYPEWRITER REPAIRER) Sodium 137 136 - 145 mmol/L 04/10/2023 9:47 AM [facility] Potassium 3.8 3.4 - 5.1 mmol/L 04/10/2023 9:47 AM [facility] Chloride 104 98 - 108 mmol/L 04/10/2023 9:47 AM [facility] Carbon Dioxide 26 20 - 31 mmol/L 04/10/2023 9:47 AM [facility] BUN (Urea Nitro) 15 9 - 23 mg/dL 04/10/2023 9:47 AM [facility] Creatinine 0.56 0.55 - 1.02 mg/dL 04/10/2023 9:47 AM [facility] Est GFR (CKD-EPI) >60.00 >60.00 mL/min/1. 73m2 04/10/2023 9:47 AM [facility] Comment:Calculation based on the Chronic Kidney Disease Epidemiology Collaboration (CKD-EPI) equation refit without adjustment for race. Glucose 115(H) 74 - 106 mg/dL 04/10/2023 9:47 AM [facility] Calcium, Serum 8.3(L) 8.7 - 10.4 mg/dL 04/10/2023 9:47 AM [facility] Anion Gap 7.0 0.0 - 15.0 mmol/L 04/10/2023 9:47 AM [facility] Blood 04/10/2023 9:15 AM TELEGRAPHIC TYPEWRITER REPAIRER 04/10/2023 9:20 AM [facility] Nura Medina MD CHEMISTRY ORDERABLE [facility] [address] [place] [address] * (ABNORMAL) CBC w/diff (04/10/2023 9:15 AM [facility]) Only the most recent of2 resultswithin the time period is included. WBC 18.7(H) 4.3 - 10.8 K/uL 04/10/2023 9:32 AM [facility] RBC 3.76(L) 4.20 - 5.40 M/uL 04/10/2023 9:32 AM [facility] Hemoglobin 11.3(L) 12.0 - 16.0 gm/dL 04/10/2023 9:32 AM [facility] Hematocrit 34.2(L) 36.0 - 48.0 % 04/10/2023 9:32 AM [facility] MCV 91 80 - 100 fL 04/10/2023 9:32 AM [facility] MCH 30 27 - 33 pg 04/10/2023 9:32 AM [facility] MCHC 33 33 - 36 gm/dL 04/10/2023 9:32 AM [facility] RDW 12.9 11.5 - 14.5 % 04/10/2023 9:32 AM [facility] Platelet Count 814(H) 150 - 400 K/UL 04/10/2023 9:32 AM [facility] MPV 8.6 6.5 - 12 fL 04/10/2023 9:32 AM [facility] PMN % 70.9 % 04/10/2023 9:32 AM [facility] IG % 3.8(H) <=1.0 % 04/10/2023 9:32 AM [facility] Comment:Immature granulocyte s often indicate left shift when outside of normal limits. Lymphocyte % 15.5 % 04/10/2023 9:32 AM [facility] Monocyte % 9.1 % 04/10/2023 9:32 AM [facility] Eosinophil % 0.4 % 04/10/2023 9:32 AM [facility] Basophil % 0.3 % 04/10/2023 9:32 AM [facility] PMN Absolute 13.27(H) 1.80 - 7.80 K/uL 04/10/2023 9:32 AM [facility] Lymphocyte Absolute 2.91 1.00 - 4.00 K/uL 04/10/2023 9:32 AM [facility] Monocyte Absolute 1.70(H) 0.00 - 1.00 K/uL 04/10/2023 9:32 AM [facility] Eosinophil Absolute 0.07 0.00 - 0.45 K/uL 04/10/2023 9:32 AM [facility] Basophil Absolute 0.06 0.00 - 0.20 K/uL 04/10/2023 9:32 AM TELEGRAPHIC TYPEWRITER REPAIRER [facility] Nucl RBC % 0.2(H) 0.0 - 0.0 /100 WBC 04/10/2023 9:32 AM [facility] Nucl RBC Absolute 0.03(H) 0.00 - 0.00 K/uL 04/10/2023 9:32 AM [facility] Blood 04/10/2023 9:15 AM TELEGRAPHIC TYPEWRITER REPAIRER 04/10/2023 9:20 AM TELEGRAPHIC TYPEWRITER REPAIRER Nura Medina MD HEMATOLOGY ORDERABLE Performing Organization Address City/[facility]/ZIP Co de Phone Number [facility] [address] [place] [address] * CK Total (04/07/2023 7:01 AM TELEGRAPHIC TYPEWRITER REPAIRER) Only the most recent of2 resultswithin the time period is included. CK Total 174 34 - 192 U/L 04/07/2023 8:01 AM [facility] Blood 04/07/2023 7:01 AM TELEGRAPHIC TYPEWRITER REPAIRER 04/07/2023 7:29 AM TELEGRAPHIC TYPEWRITER REPAIRER Chuck Carpenter MD CHEMISTRY ORDERABLE Performing Organization Address City/[facility] de Phone Number [facility] [address] [place] [phone] * CT Spine Lumbar w/o Contrast (04/06/2023 12:10 PM TELEGRAPHIC TYPEWRITER REPAIRER) Anatomical Region Laterality Modality Spine Computed Tomogra phy 04/06/2023 12:0 6 PM TELEGRAPHIC TYPEWRITER REPAIRER Impressions 04/06/2023 12:22 PM TELEGRAPHIC TYPEWRITER REPAIRER IMPRESSION: 1. Operative changes of posterior jarred [...] Janice Talavera M.D. Narrative 04/06/2023 12:22 PM TELEGRAPHIC TYPEWRITER REPAIRER EXAM: ??CT SPINE LUMBAR W/O CON DATE: [...] & HIP LATERAL BILAT (04/06/2023 10:07 AM TELEGRAPHIC TYPEWRITER REPAIRER) Anatomical Region Laterality Modality ABD/Pelvis Computed Radiogr aphy 04/06/2023 10:0 8 AM TELEGRAPHIC TYPEWRITER REPAIRER Impressions 04/06/2023 10:09 AM TELEGRAPHIC TYPEWRITER REPAIRER IMPRESSION: 1. 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 No discrete acute bony pelvic or proximal femoral fracture visualized. REPORT SIGNED BY Janice Talavera M.D. Narrative 04/06/2023 10:09 AM TELEGRAPHIC TYPEWRITER REPAIRER EXAM: ??XR PELVIS & HIP LATERAL BILAT [...] Hgb A1c (Glycosolated Hgb) (04/05/2023 7:07 PM TELEGRAPHIC TYPEWRITER REPAIRER) HBA1C (GLYCOSOLATED HGB) 5.1 <5.7 % 04/06/2023 12:57 PM TELEGRAPHIC TYPEWRITER REPAIRER [facility] EAG (EST. AVERAGE GLUCOSE) 100 <117 mg/dL 04/06/2023 12:57 PM TELEGRAPHIC TYPEWRITER REPAIRER [facility] Blood 04/05/2023 7:07 PM TELEGRAPHIC TYPEWRITER REPAIRER 04/05/2023 7:34 PM TELEGRAPHIC TYPEWRITER REPAIRER Chuck Carpenter MD CHEMISTRY ORDERABLE Performing Organization Address [facility] Co de Phone Number [facility] [address] [place] [address] * (ABNORMAL) Hemoglobin (04/03/2023 7:00 AM TELEGRAPHIC TYPEWRITER REPAIRER) Only the most recent of4 resultswithin the time period is included. Hemoglobin 8.5(L) 12.0 - 16.0 gm/dL 04/03/2023 7:25 AM TELEGRAPHIC TYPEWRITER REPAIRER [facility] Blood 04/03/2023 7:00 AM TELEGRAPHIC TYPEWRITER REPAIRER 04/03/2023 7:17 AM TELEGRAPHIC TYPEWRITER REPAIRER Nj Thorne PA-C HEMATOLOGY ORDERA BLE Performing Organization Address [facility] Co de Phone Number [facility] [address] [place] [address] * XR SPINE LUMBAR ROUTINE (04/02/2023 10:43 AM TELEGRAPHIC TYPEWRITER REPAIRER) Anatomical Region Laterality Modality Spine Computed Radiogr aphy 04/02/2023 11:2 7 AM TELEGRAPHIC TYPEWRITER REPAIRER Impressions 04/02/2023 11:29 AM TELEGRAPHIC TYPEWRITER REPAIRER IMPRESSION: 1. Operative changes of posterior jarred and pedicle screw fixation L1-L5 with posterolateral bone graft material, grossly negative for postoperative purposes. Lumbar vertebral body alignment described in more detail above. 2. Old superior and inferior pubic rami fractures. REPORT SIGNED BY Janice Talavera M.D. Narrative 04/02/2023 11:29 AM TELEGRAPHIC TYPEWRITER REPAIRER EXAM: ??XR SPINE LUMBAR ROUTINE DATE: 04/02/2023 [...] Tube-SST (Lab Use Only) (04/02/2023 7:28 AM TELEGRAPHIC TYPEWRITER REPAIRER) Blood 04/02/2023 7:28 AM TELEGRAPHIC TYPEWRITER REPAIRER 04/02/2023 7:53 AM TELEGRAPHIC TYPEWRITER REPAIRER Bonita Estrada MD CHEMISTRY ORDERABLE [facility] [address] [place] [address] * XR C-ARM SPINE (04/01/2023 10:36 AM TELEGRAPHIC TYPEWRITER REPAIRER) Anatomical Region Laterality Modality Computed Radiogr aphy 04/01/2023 12:3 5 PM TELEGRAPHIC TYPEWRITER REPAIRER Impressions 04/01/2023 12:37 PM TELEGRAPHIC TYPEWRITER REPAIRER IMPRESSION: 1. ??Procedural assistance. REPORT SIGNED BY DR. MARCUS JUNE Narrative 04/01/2023 12:37 PM TELEGRAPHIC TYPEWRITER REPAIRER EXAM: ??XR C-ARM SPINE DATE: ?? 04/01/2023 [...] REPORT SIGNED BY DR. MARCUS JUNE Isai LEEAY ORDERABLE * Intubation (04/01/2023 8:15 AM TELEGRAPHIC TYPEWRITER REPAIRER) Narrative Monika Ireland APRN, CRNA - 04/01/2023 8:15 AM TELEGRAPHIC TYPEWRITER REPAIRER Monika Ireland APRN, CRNA ? 04/01/2023 ??8:27 [...] Confirm (Lab Use Only) (04/01/2023 6:47 AM TELEGRAPHIC TYPEWRITER REPAIRER) Group and O Positive 04/01/2023 9:09 AM TELEGRAPHIC TYPEWRITER REPAIRER [facility] Blood 04/01/2023 6:47 AM TELEGRAPHIC TYPEWRITER REPAIRER 04/01/2023 7:26 AM TELEGRAPHIC TYPEWRITER REPAIRER Nj Thorne ZAHEER-C BLOOD BANK ORDERA BLE Performing Organization Address City/[facility] Co de Phone Number [address] [address] * Type and Screen (04/01/2023 6:46 AM TELEGRAPHIC TYPEWRITER REPAIRER) Group and Rh O Positive 04/01/2023 7:39 AM TELEGRAPHIC TYPEWRITER REPAIRER [facility] Antibody Screen Negative 04/01/2023 7:39 AM TELEGRAPHIC TYPEWRITER REPAIRER [facility] Blood 04/01/2023 6:46 AM TELEGRAPHIC TYPEWRITER REPAIRER 04/01/2023 6:50 AM TELEGRAPHIC TYPEWRITER REPAIRER Nj Luismisha SCHWAB-C BLOOD BANK ORDERA BLE Performing Organization Address [facility] de Phone Number [id number] [place] [address] * Partial Thromboplastin Time (04/01/2023 6:46 AM TELEGRAPHIC TYPEWRITER REPAIRER) PTT 28.8 24.0 - 31.0 SEC. 04/01/2023 7:06 AM TELEGRAPHIC TYPEWRITER REPAIRER [facility] Blood 04/01/2023 6:46 AM TELEGRAPHIC TYPEWRITER REPAIRER 04/01/2023 6:50 AM TELEGRAPHIC TYPEWRITER REPAIRER Narrative [facility] - 04/01/2023 7:06 AM TELEGRAPHIC TYPEWRITER REPAIRER aPTT Therapeutic Reference Ranges: Argatroban protocol: 60 - 85 seconds Bivalirudin protocol: 43 - 71 seconds Nj Ying Fadumo SCHWAB-C COAGULATION ORDER ABLE Performing Organization Address City/[facility]/ZIP Co de Phone Number [place] [address] [address] * Hematocrit (04/01/2023 6:46 AM TELEGRAPHIC TYPEWRITER REPAIRER) Hematocrit 37.3 36.0 - 48.0 % 04/01/2023 7:07 AM [facility] Blood 04/01/2023 6:46 AM TELEGRAPHIC TYPEWRITER REPAIRER 04/01/2023 6:50 AM TELEGRAPHIC TYPEWRITER REPAIRER Nj Thorne PA-C HEMATOLOGY ORDERA BLE Performing Organization Address City/[facility]/ZIP Co de Phone Number [facility] [address] [address] * (ABNORMAL) POCT Glucose Meter (04/01/2023 6:12 AM TELEGRAPHIC TYPEWRITER REPAIRER) GLUCOSE WB METER 105(H) 60 - 100 mg/dL 04/01/2023 6:38 AM [facility] Blood 04/01/2023 6:12 AM TELEGRAPHIC TYPEWRITER REPAIRER 04/01/2023 6:38 AM TELEGRAPHIC TYPEWRITER REPAIRER Isai Foss MD LAB POINT OF CARE TE ST RESULTS Performing Organization Address City/[facility]/ZIP Co de Phone Number [facility] [address] [place] [address] from Last 3 Months Advance Directives For more information, please contact: [phone] Latest Code Status on File Code Status Date Activated Date Inactivated Comments Full Code 04/10/2023 2:53 PM Question Answer Comments How was code status determined? Previous Documen tation Code Status History Code Status Date Activated Date Inactivated Comments Full Code 04/05/2023 6:31 PM 04/07/2023 8:29 PM Question Answer Comments How was code status determined? Patient Full Code 04/02/2023 1:58 AM 04/03/2023 9:38 PM Question Answer Comments How was code status determined? Physician Abelardo leal Full Code 04/01/2023 5:53 AM 04/01/2023 11:19 AM Question Answer Comments How was code status determined? Physician Abelardo leal Not discussed Care Teams [employer] Relationship Specialty [place] [address] [address] [place] [id number] PCP - General Internal Medicine 04/02/23 Clinic, [facility] [phone] [place] [id number] PCP - Primary Care Clinic 04/02/23
--- OUTSIDE RECORDS SUMMARY | 2023-04-11 15:59 | XMS_ITS | Referral Summary ---
Author Name Unknown Organization [facility] Address [address] [place] [id number] Care Team Providers Care Ladle Operator Name Role Phone Carolynn Alvarado MD Primary Care Provider [phone] [facility] Unavailable Encounters Date Type Department Care Team Description 04/10/2023 Travel 04/10/2023 8:14 AM FUNERAL HOME LOCATION MANAGER - Present Hospital Encounter A[address] [place] [address] [place] [address] Nura Medina MD Hanson, Kristin R, MD Intractable pain 04/05/2023 5:15 PM FUNERAL HOME LOCATION MANAGER - 04/07/2023 2:20 PM FUNERAL HOME LOCATION MANAGER Hospital Encounter A[address] [place] [address] [place] [address] Sergio Lara DO Reynolds, Jacob D, MD -Hospitalist Acute pain of left lower extremity Discharge Disposition: Returning Home/Self Care 04/01/2023 5:52 AM FUNERAL HOME LOCATION MANAGER - 04/03/2023 3:20 PM FUNERAL HOME LOCATION MANAGER Hospital Encounter A[address] [place] [address] [place] [address] Isai Foss MD Lumbar radiculopathy Discharge Disposition: Returning Home/Self Care 04/01/2023 Travel 04/01/2023 7:25 AM FUNERAL HOME LOCATION MANAGER - 04/01/2023 11:50 AM FUNERAL HOME LOCATION MANAGER Surgery [facility] Operating Room [address] [place] [address] [place] [address] Isai Foss MD L1-5 POSTERIOR FUSION WITH INSTRUMENTATION WITH NEURO MONITORING 03/28/2023 Prep For Procedure NMR PROVIDER [address] [facility] [place] [address] Nj Thorne PA-C 03/26/2023 Travel 03/12/2023 Travel from Last 3 Months Allergies Active Allergy Reactions Criticality Noted Date Comments Lisinopril 03/26/2023 COHEN Medications Medication Sig Dispensed Refills Start Date End Date Status medical supply, miscellaneous (ELECTRICAL BONE GROWTH STIMULATOR)Indicat ions:S/P lumbar fusion Company: [employer] - for home use. 1 each 0 [...] drink = 0.6 oz pur e alcohol) [facility] Utilities Answer Date Recorded In the past 12 months has th e [employer], gas, oil, or water company threatened to [...] place to sleep or slept in a fpc (including now)? No 04/10/2023 Sex and Gender Information Value Date Recorded Sex Assigned at Female 03/11/2023 11:10 AM FUNERAL HOME LOCATION MANAGER Gender Identity Female 03/11/2023 11:10 AM FUNERAL HOME LOCATION MANAGER Sexual Orientation Straight 03/11/2023 11 :10 AM FUNERAL HOME LOCATION MANAGER Last Filed Vital Signs Vital Sign Reading Time Taken Comments Blood Pressure 107/74 04/11/2023 3:08 PM FUNERAL HOME LOCATION MANAGER Pulse 94 04/11/2023 3:08 PM FUNERAL HOME LOCATION MANAGER Temperature 36.6 ??C (97.8 ??F) 04/11/2023 11:[address] Respiratory Rate 18 04/11/2023 4:46 AM FUNERAL HOME LOCATION MANAGER Oxygen Saturation 99% 04/11/2023 12:30 PM FUNERAL HOME LOCATION MANAGER Inhaled Oxygen Concentration - - Weight 60 kg (132 lb 4.4 oz) 04/10/2023 8:00 PM FUNERAL HOME LOCATION MANAGER Height 162.6 cm (5' 4) 04/10/2023 8:00 PM FUNERAL HOME LOCATION MANAGER Body Mass Index 22.71 04/10/2023 8:00 PM FUNERAL HOME LOCATION MANAGER Plan of Treatment Not on file Medical Devices Implanted Type Area Ground Crew Chief Device Identifier Shelf Expiration Date Model / Serial / Lot Cancellous Chips 30cc - [id number] Implanted:Qty : 1 on 04/01/2023 by Isai Foss MD at [facility] Bone N/A: Spine Lumbar [employer] 01/23/2027 [id number] / [id number] / Infuse Med - [id number] Implanted:Qty : 1 on 04/01/2023 by Isai Foss MD at [facility] Prosthetic Implant Non-Specific N/A: Spine Lumbar [employer] Sofamor Danek 09/14/2024 [id number] / / [id number] 5.5mm Ti Alloy Curved Jarred, 125mm Implanted:Qty : 2 on 04/01/2023 by Isai Foss MD at [facility] Back [id number] / / Description:MFTR: [employer] Procedures The patient is currently admitted. The information in this section might not be complete until the patient is discharged. Procedure Name Priority Date/Time Associated Diagnosis Comments PROCALCITONIN Add On 04/11/2023 11:22 AM FUNERAL HOME LOCATION MANAGER CALCIUM, IONIZED STAT 04/11/2023 11:22 AM FUNERAL HOME LOCATION MANAGER PROTIME/INR STAT 04/11/2023 11:22 AM FUNERAL HOME LOCATION MANAGER MAGNESIUM STAT 04/11/2023 11:22 AM FUNERAL HOME LOCATION MANAGER COMPREHENSIVE METABOLIC PANEL STAT 04/11/2023 11:22 AM FUNERAL HOME LOCATION MANAGER LIPASE STAT 04/11/2023 11:22 AM FUNERAL HOME LOCATION MANAGER CBC (HGB,HCT,WBC,RBC,KURTIS TELET) STAT 04/11/2023 11:22 AM FUNERAL HOME LOCATION MANAGER US VENOUS EXTREM LOW RT Routine 04/10/2023 7:29 PM FUNERAL HOME LOCATION MANAGER XR CHEST AP PORT STAT 04/10/2023 2:05 PM FUNERAL HOME LOCATION MANAGER CT RECONSTRUCTION SPINE LUMBAR STAT 04/10/2023 11:14 AM FUNERAL HOME LOCATION MANAGER CT ABDOMEN & PELVIS W/O ORAL W IV CON STAT 04/10/2023 11:12 AM FUNERAL HOME LOCATION MANAGER URINE MACROSCOPIC (POCT) DIP Routine 04/10/2023 9:53 AM FUNERAL HOME LOCATION MANAGER PROCALCITONIN Add On 04/10/2023 9:15 AM FUNERAL HOME LOCATION MANAGER LIPASE STAT 04/10/2023 9:15 AM FUNERAL HOME LOCATION MANAGER LIVER PROFILE STAT 04/10/2023 9:15 AM FUNERAL HOME LOCATION MANAGER CBC/DIFF STAT 04/10/2023 9:15 AM FUNERAL HOME LOCATION MANAGER BASIC METAB PROFILE STAT 04/10/2023 9 :15 AM FUNERAL HOME LOCATION MANAGER CK TOTAL Routine 04/07/2023 7:01 AM FUNERAL HOME LOCATION MANAGER CBC/DIFF Routine 04/07/2023 7:01 AM FUNERAL HOME LOCATION MANAGER COMPREHENSIVE METABOLIC PANEL Routine 04/07/2023 7:01 AM FUNERAL HOME LOCATION MANAGER CT SPINE LUMBAR W/O CON Routine 04/06/2023 12:10 PM FUNERAL HOME LOCATION MANAGER XR PELVIS & HIP LATERAL BILAT Routine 04/06/2023 10:07 AM FUNERAL HOME LOCATION MANAGER HBA1C / EAG Add On 04/05/2023 7:07 PM FUNERAL HOME LOCATION MANAGER CK TOTAL Add On 04/05/2023 7:07 PM FUNERAL HOME LOCATION MANAGER COMPREHENSIVE METABOLIC PANEL Routine 04/05/2023 7:07 PM FUNERAL HOME LOCATION MANAGER CBC (HGB,HCT,WBC,RBC,KURTIS TELET) Routine 04/05/2023 7:07 PM FUNERAL HOME LOCATION MANAGER HEMOGLOBIN Routine 04/03/2023 7:00 AM FUNERAL HOME LOCATION MANAGER HEMOGLOBIN Timed Procedure 04/02/2023 3:26 PM FUNERAL HOME LOCATION MANAGER XR SPINE LUMBAR ROUTINE STAT 04/02/2023 10:43 AM FUNERAL HOME LOCATION MANAGER EXTRA TUBE-SST (LAB USE ONLY) Routine 04/02/2023 7:28 AM FUNERAL HOME LOCATION MANAGER HEMOGLOBIN Routine 04/02/2023 7:28 AM FUNERAL HOME LOCATION MANAGER XR C-ARM SPINE STAT 04/01/2023 10:36 AM FUNERAL HOME LOCATION MANAGER INTUBATION Routine 04/01/2023 8:15 AM FUNERAL HOME LOCATION MANAGER SPIN BONE AUTOGRFT LOCAL 04/01/2023 7:29 AM FUNERAL HOME LOCATION MANAGER Degeneration of lumbar intervertebral disc ALLOGRAFT FOR SPINE SURGERY ONLY MORSELIZED 04/01/2023 7:29 AM FUNERAL HOME LOCATION MANAGER Degeneration of lumbar intervertebral disc INSERT VERT FIX DEV,POST,3-6 * 04/01/2023 7:29 AM FUNERAL HOME LOCATION MANAGER Degeneration of lumbar intervertebral disc SPINE FUSN,POST TECH,EA ADDNL* 04/01/2023 7:29 AM FUNERAL HOME LOCATION MANAGER Degeneration of lumbar intervertebral disc ARTHRODESIS POSTERIOR/POSTEROLAT ERAL LUMBAR 04/01/2023 7:29 AM FUNERAL HOME LOCATION MANAGER Degeneration of lumbar intervertebral disc ABORH CONFIRM (LAB USE ONLY) STAT 04/01/2023 6:47 AM FUNERAL HOME LOCATION MANAGER HEMATOCRIT STAT 04/01/2023 6:46 AM FUNERAL HOME LOCATION MANAGER HEMOGLOBIN STAT 04/01/2023 6:46 AM FUNERAL HOME LOCATION MANAGER TYPE AND SCREEN STAT 04/01/2023 6:46 AM FUNERAL HOME LOCATION MANAGER PARTIAL THROMBOPLASTIN TIME STAT 04/01/2023 6:46 AM FUNERAL HOME LOCATION MANAGER PROTIME/INR STAT 04/01/2023 6:46 AM FUNERAL HOME LOCATION MANAGER POCT GLU METER STAT 04/01/2023 6:12 AM FUNERAL HOME LOCATION MANAGER from Last 3 Months Results * Procalcitonin (04/11/2023 11:22 AM FUNERAL HOME LOCATION MANAGER) Only the most recent of2 resultswithin the time period is included. Procalcitonin <0.04 <=0.05 ng/mL 04/11/2023 2:56 PM FUNERAL HOME LOCATION MANAGER [facility] Blood Venipuncture / Unknown 04/11/2023 11:22 AM FUNERAL HOME LOCATION MANAGER 04/11/2023 11:30 AM FUNERAL HOME LOCATION MANAGER [facility] - 04/11/2023 2:56 PM FUNERAL HOME LOCATION MANAGER PROCALCITONIN REFERENCE RANGE <0.1 ng/mL: ?Bacterial infection [...] shock. ? Ivis Leach MD CHEMISTRY ORDERABLE Performing Organization Address [facility] de Phone Number [facility] [address] [place], [place] [id number] * (ABNORMAL) Calcium, Ionized (04/11/2023 11:22 AM FUNERAL HOME LOCATION MANAGER) [facility] Calcium, Ionized 1.12(L) 1.13 - 1.32 mmol/L 04/11/2023 11:34 AM FUNERAL HOME LOCATION MANAGER [facility] Blood Venipuncture / Unknown 04/11/2023 11:22 AM FUNERAL HOME LOCATION MANAGER 04/11/2023 11:29 AM FUNERAL HOME LOCATION MANAGER Ivis Leach MD CHEMISTRY ORDERABLE Performing Organization Address [facility] de Phone Number [facility] [address] [place], [place] [id number] * Magnesium (04/11/2023 11:22 AM FUNERAL HOME LOCATION MANAGER) Pathologist [facility] Magnesium 2.4 1.6 - 2.6 mg/dL 04/11/2023 12:02 PM [facility] Blood Venipuncture / Unknown 04/11/2023 11:22 AM FUNERAL HOME LOCATION MANAGER 04/11/2023 11:30 AM FUNERAL HOME LOCATION MANAGER Ivis Leach MD CHEMISTRY ORDERABLE Performing Organization Address City/[facility] de Phone Number [facility] [address] [facility] [place] [address] * (ABNORMAL) Lipase (04/11/2023 11:22 AM FUNERAL HOME LOCATION MANAGER) Only the most recent of2 resultswithin the time period is included. Lipase 186(H) 12 - 53 U/L 04/11/2023 12:02 PM [facility] Blood Venipuncture / Unknown 04/11/2023 11:22 AM FUNERAL HOME LOCATION MANAGER 04/11/2023 11:30 AM FUNERAL HOME LOCATION MANAGER Ivis Leach MD CHEMISTRY ORDERABLE Performing Organization Address [facility] de Phone Number [facility] [address] [place] [address] * (ABNORMAL) Comprehensive Metabolic Panel (04/11/2023 11:22 AM FUNERAL HOME LOCATION MANAGER) Only the most recent of3 resultswithin the time period is included. Sodium 137 136 - 145 mmol/L 04/11/2023 12:02 PM [facility] Potassium 3.5 3.4 - 5.1 mmol/L 04/11/2023 12:02 PM [facility] Chloride 102 98 - 108 mmol/L 04/11/2023 12:02 PM [facility] Carbon Dioxide 29 20 - 31 mmol/L 04/11/2023 12:02 PM [facility] BUN (Urea Nitro) 20 9 - 23 mg/dL 04/11/2023 12:02 PM [facility] Creatinine 0.74 0.55 - 1.02 mg/dL 04/11/2023 12:02 PM [facility] Est GFR (CKD-EPI) >60.00 >60.00 mL/min/1. 73m2 04/11/2023 12:02 PM [facility] Comment:Calculation based on the Chronic Kidney Disease Epidemiology Collaboration (CKD-EPI) equation refit without adjustment for race. Glucose 90 74 - 106 mg/dL 04/11/2023 12:02 PM [facility] Calcium, Serum 8.6(L) 8.7 - 10.4 mg/dL 04/11/2023 12:02 PM [facility] Anion Gap 6.0 0.0 - 15.0 mmol/L 04/11/2023 12:02 PM [facility] Albumin 3.3(L) 3.4 - 5.0 g/dL 04/11/2023 12:02 PM [facility] Bilirubin-Total 0.4 0.3 - 1.2 mg/dL 04/11/2023 12:02 PM [facility] Alkaline Phosphatase 96 46 - 116 U/L 04/11/2023 12:02 PM [facility] Protein Total 6.7 5.7 - 8.2 g/dL 04/11/2023 12:02 PM [facility] AST (SGOT) <8(L) 13 - 40 U/L 04/11/2023 12:02 PM [facility] ALT 36 7 - 40 U/L 04/11/2023 12:02 PM [facility] Blood Venipuncture / Unknown 04/11/2023 11:22 AM FUNERAL HOME LOCATION MANAGER 04/11/2023 11:30 AM [facility] Ivis Leach MD CHEMISTRY ORDERABLE Performing Organization Address City/State/[facility] Co de Phone Number [facility] [address] [place] [address] * (ABNORMAL) CBC (Hgb,Hct,WBC,RBC,Platelet) (04/11/2023 11:22 AM [facility]) Only the most recent of2 resultswithin the time period is included. WBC 20.3(H) 4.3 - 10.8 K/uL 04/11/2023 11:50 AM [facility] RBC 3.67(L) 4.20 - 5.40 M/uL 04/11/2023 11:50 AM [facility] Hemoglobin 11.5(L) 12.0 - 16.0 gm/dL 04/11/2023 11:50 AM [facility] Hematocrit 34.0(L) 36.0 - 48.0 % 04/11/2023 11:50 AM [facility] MCV 93 80 - 100 fL 04/11/2023 11:50 AM [facility] MCH 31 27 - 33 pg 04/11/2023 11:50 AM [facility] MCHC 34 33 - 36 gm/dL 04/11/2023 11:50 AM [facility] RDW 13.2 11.5 - 14.5 % 04/11/2023 11:50 AM [facility] Platelet Count 795(H) 150 - 400 K/UL 04/11/2023 11:50 AM [facility] MPV 8.5 6.5 - 12 fL 04/11/2023 11:50 AM [facility] Blood Venipuncture / Unknown 04/11/2023 11:22 AM FUNERAL HOME LOCATION MANAGER 04/11/2023 11:30 AM FUNERAL HOME LOCATION MANAGER Ivis Leach MD HEMATOLOGY ORDERABLE Performing Organization Address City/[facility]/ZIP Co de Phone Number [facility] [address] [facility] [place] [address] * Protime/INR (04/11/2023 11:22 AM FUNERAL HOME LOCATION MANAGER) Only the most recent of2 resultswithin the time period is included. INR 1.0 0.9 - 1.2 04/11/2023 11:42 AM [facility] Blood Venipuncture / Unknown 04/11/2023 11:22 AM FUNERAL HOME LOCATION MANAGER 04/11/2023 11:28 AM FUNERAL HOME LOCATION MANAGER Ivis Leach MD COAGULATION ORDERABL E Performing Organization Address City/[facility] Co de Phone Number [facility] [address] [address] [place] [phone] * US VENOUS LOW RT (04/10/2023 7:29 PM FUNERAL HOME LOCATION MANAGER) Anatomical Region Laterality Modality Extremity Ultrasound 04/10/2023 7:32 PM FUNERAL HOME LOCATION MANAGER Impressions 04/10/2023 7:32 PM FUNERAL HOME LOCATION MANAGER IMPRESSION: No evidence of deep venous thrombosis in the right leg. Report signed by Bogdan Fox M.D. Narrative 04/10/2023 7:32 PM FUNERAL HOME LOCATION MANAGER EXAM: US VENOUS EXTREM LOW RT DATE: [...] XR CHEST AP PORT (04/10/2023 2:05 PM FUNERAL HOME LOCATION MANAGER) Anatomical Region Laterality Modality Chest Computed Radiogr aphy 04/10/2023 2:11 PM FUNERAL HOME LOCATION MANAGER Impressions 04/10/2023 2:15 PM FUNERAL HOME LOCATION MANAGER IMPRESSION: No acute finding in the chest. Clear lungs. REPORT SIGNED BY DR. Florian Sampson Narrative 04/10/2023 2:15 PM FUNERAL HOME LOCATION MANAGER EXAM: XR CHEST AP PORT DATE: 04/10/2023 [...] CT Recon L/S Spine (04/10/2023 11:14 AM FUNERAL HOME LOCATION MANAGER) Anatomical Region Laterality Modality Spine Computed Tomogra phy 04/10/2023 11:3 5 AM FUNERAL HOME LOCATION MANAGER Impressions 04/10/2023 11:52 AM FUNERAL HOME LOCATION MANAGER IMPRESSION: 1. ??No adverse interval change since April 06, 2023. 2. ??Multilevel fusion. 3. ??Small foci of gas in the subcutaneous tissues on the comparison exam have resolved. No new definable collection. REPORT SIGNED BY DR. Carmen Duarte Narrative 04/10/2023 11:52 AM FUNERAL HOME LOCATION MANAGER EXAM: CT RECONSTRUCTION SPINE LUMBAR DATE: 04/10/2023 10:50 AM CLINICAL DATA: The patient presents from home in [place] via EMS for back and abdominal pain. The patient underwent a spinal fusion on 04/01/22 (9 days ago) and since has had persistent back and diffuse abdominal pain. She was seen in [place] and here at [facility] a few days ago and was [...] DATA: The patient presents from home in [place] via EMS forback and abdominal pain. The patient underwent a spinal fusion on 04/01/22(9 days ago) and since has had persistent back and diffuse abdominal pain.She was seen in [place] and here at [facility] a few days ago and was [...] collection. REPORT SIGNED BY DR. Carmen Duarte uNra Medina MD CT ORDERABLE * CT ABDOMEN & PELVIS W/O ORAL W IV CON (04/10/2023 11:12 AM FUNERAL HOME LOCATION MANAGER) Anatomical Region Laterality Modality ABD/Pelvis Computed Tomogra phy 04/10/2023 11:2 8 AM FUNERAL HOME LOCATION MANAGER Impressions 04/10/2023 11:35 AM FUNERAL HOME LOCATION MANAGER IMPRESSION: ?? 1. ??Dilated intrahepatic and extrahepatic bile ducts in the setting of prior cholecystectomy. Correlate with laboratory values to assess for biliary stasis. 2. ??No other acute finding in the abdomen or pelvis. 3. ??Scoliosis. Multilevel fusion, similar to the recent comparison exam. No finding of hardware failure. REPORT SIGNED BY DR. CARMEN DUARTE Narrative 04/10/2023 11:35 AM FUNERAL HOME LOCATION MANAGER EXAM: ??CT ABDOMEN & PELVIS W/O ORAL W IV CON DATE: 04/10/2023 10:50 AM CLINICAL DATA: ??The patient presents from home in [place] via EMS for back and abdominal pain. The patient underwent a spinal fusion on 04/01/22 (9 days ago) and since has had persistent back and diffuse abdominal pain. She was seen in [place] and here at [facility] a few days ago and was [...] DATA: The patient presents from home in [place] via EMS forback and abdominal pain. The patient underwent a spinal fusion on 04/01/22(9 days ago) and since has had persistent back and diffuse abdominal pain.She was seen in [place] and here at [facility] a few days ago and was [...] hardware failure. REPORT SIGNED BY DR. CARMEN TING Nura Medina MD CT ORDERABLE * (ABNORMAL) Urine Macroscopic (POCT) Dip (04/10/2023 9:53 AM FUNERAL HOME LOCATION MANAGER) Pathologist [facility] [place] PH URINE 7.0 4.5 - 8.0 04/10/2023 9:50 AM [facility] SP.GRAVITY, UA 1.015 1.015 - 1.025 04/10/2023 9:50 AM [facility] Glucose, UA Negative Negative mg/dL 04/10/2023 9:50 AM [facility] Ketone, UA Negative Negative mg/dL 04/10/2023 9:50 AM [facility] OCCULT BLOOD, UA Negative Negative, Trace, TRACE-LYSED, TRACE-INTACT 04/10/2023 9:50 AM [facility] Bilirubin, UA Negative Negative 04/10/2023 9:50 AM [facility] UROBILINOGEN, UA 1.0 0.2 - 1.0 EU/dL 04/10/2023 9:50 AM [facility] NITRITE, UA Negative Negative 04/10/2023 9:50 AM [facility] WBC ESTERASE, UA Negative Negative, Trace 04/10/2023 9:50 AM [facility] PROTEIN, UA 30(A) Negative, Trace mg/dL 04/10/2023 9:50 AM [facility] Urine 04/10/2023 9:53 AM FUNERAL HOME LOCATION MANAGER 04/10/2023 9:50 AM [facility] Nura Medina MD LAB POINT OF CARE TE ST RESULTS [facility] [address] [facility] [place] [place], [place] [phone] * (ABNORMAL) LFTs (04/10/2023 9:15 AM FUNERAL HOME LOCATION MANAGER) Pathologist [facility] [place] ALT 48(H) 7 - 40 U/L 04/10/2023 9:47 AM [facility] Alkaline Phosphatase 101 46 - 116 U/L 04/10/2023 9:47 AM [facility] AST (SGOT) 14 13 - 40 U/L 04/10/2023 9:47 AM [facility] Protein Total 7.0 5.7 - 8.2 g/dL 04/10/2023 9:47 AM [facility] Albumin 3.3(L) 3.4 - 5.0 g/dL 04/10/2023 9:47 AM [facility] Bilirubin-Direct 0.13 <0.40 mg/dL 04/10/2023 9:47 AM [facility] Bilirubin-Total 0.4 0.3 - 1.2 mg/dL 04/10/2023 9:47 AM [facility] Blood 04/10/2023 9:15 AM FUNERAL HOME LOCATION MANAGER 04/10/2023 9:20 AM [facility] Nura Medina MD CHEMISTRY ORDERABLE [facility] [address] [place] [address] * (ABNORMAL) Basic Metabolic Profile (04/10/2023 9:15 AM [facility]) Sodium 137 136 - 145 mmol/L 04/10/2023 9:47 AM [facility] Potassium 3.8 3.4 - 5.1 mmol/L 04/10/2023 9:47 AM [facility] Chloride 104 98 - 108 mmol/L 04/10/2023 9:47 AM [facility] Carbon Dioxide 26 20 - 31 mmol/L 04/10/2023 9:47 AM [facility] BUN (Urea Nitro) 15 9 - 23 mg/dL 04/10/2023 9:47 AM [facility] Creatinine 0.56 0.55 - 1.02 mg/dL 04/10/2023 9:47 AM [facility] Est GFR (CKD-EPI) >60.00 >60.00 mL/min/1. 73m2 04/10/2023 9:47 AM [facility] Comment:Calculation based on the Chronic Kidney Disease Epidemiology Collaboration (CKD-EPI) equation refit without adjustment for race. Glucose 115(H) 74 - 106 mg/dL 04/10/2023 9:47 AM [facility] Calcium, Serum 8.3(L) 8.7 - 10.4 mg/dL 04/10/2023 9:47 AM [facility] Anion Gap 7.0 0.0 - 15.0 mmol/L 04/10/2023 9:47 AM [facility] Blood 04/10/2023 9:15 AM FUNERAL HOME LOCATION MANAGER 04/10/2023 9:20 AM [facility] Nura Medina MD CHEMISTRY ORDERABLE [facility] [address] [place] [address] * (ABNORMAL) CBC w/diff (04/10/2023 9:15 AM [facility]) Only the most recent of2 resultswithin the time period is included. WBC 18.7(H) 4.3 - 10.8 K/uL 04/10/2023 9:32 AM [facility] RBC 3.76(L) 4.20 - 5.40 M/uL 04/10/2023 9:32 AM [facility] Hemoglobin 11.3(L) 12.0 - 16.0 gm/dL 04/10/2023 9:32 AM [facility] Hematocrit 34.2(L) 36.0 - 48.0 % 04/10/2023 9:32 AM [facility] MCV 91 80 - 100 fL 04/10/2023 9:32 AM [facility] MCH 30 27 - 33 pg 04/10/2023 9:32 AM [facility] MCHC 33 33 - 36 gm/dL 04/10/2023 9:32 AM [facility] RDW 12.9 11.5 - 14.5 % 04/10/2023 9:32 AM [facility] Platelet Count 814(H) 150 - 400 K/UL 04/10/2023 9:32 AM [facility] MPV 8.6 6.5 - 12 fL 04/10/2023 9:32 AM [facility] PMN % 70.9 % 04/10/2023 9:32 AM [facility] IG % 3.8(H) <=1.0 % 04/10/2023 9:32 AM [facility] Comment:Immature granulocyte s often indicate left shift when outside of normal limits. Lymphocyte % 15.5 % 04/10/2023 9:32 AM [facility] Monocyte % 9.1 % 04/10/2023 9:32 AM [facility] Eosinophil % 0.4 % 04/10/2023 9:32 AM [facility] Basophil % 0.3 % 04/10/2023 9:32 AM [facility] PMN Absolute 13.27(H) 1.80 - 7.80 K/uL 04/10/2023 9:32 AM [facility] Lymphocyte Absolute 2.91 1.00 - 4.00 K/uL 04/10/2023 9:32 AM [facility] Monocyte Absolute 1.70(H) 0.00 - 1.00 K/uL 04/10/2023 9:32 AM [facility] Eosinophil Absolute 0.07 0.00 - 0.45 K/uL 04/10/2023 9:32 AM [facility] Basophil Absolute 0.06 0.00 - 0.20 K/uL 04/10/2023 9:32 AM [facility] Nucl RBC % 0.2(H) 0.0 - 0.0 /100 WBC 04/10/2023 9:32 AM [facility] Nucl RBC Absolute 0.03(H) 0.00 - 0.00 K/uL 04/10/2023 9:32 AM [facility] Blood 04/10/2023 9:15 AM [facility] [employer] 04/10/2023 9:20 AM [facility] Nura Medina MD HEMATOLOGY ORDERABLE [facility] [address] [place] [address] * CK Total (04/07/2023 7:01 AM FUNERAL HOME LOCATION MANAGER) Only the most recent of2 resultswithin the time period is included. CK Total 174 34 - 192 U/L 04/07/2023 8:01 AM FUNERAL HOME LOCATION MANAGER [facility] Blood 04/07/2023 7:01 AM FUNERAL HOME LOCATION MANAGER 04/07/2023 7:29 AM FUNERAL HOME LOCATION MANAGER Chuck Carpenter MD CHEMISTRY ORDERABLE Performing Organization Address City/State/[facility] Co de Phone Number [facility] [address] [place] [address] * CT Spine Lumbar w/o Contrast (04/06/2023 12:10 PM FUNERAL HOME LOCATION MANAGER) Anatomical Region Laterality Modality Spine Computed Tomogra phy 04/06/2023 12:0 6 PM FUNERAL HOME LOCATION MANAGER Impressions 04/06/2023 12:22 PM FUNERAL HOME LOCATION MANAGER IMPRESSION: 1. Operative changes of posterior jarred [...] Janice Talavera M.D. Narrative 04/06/2023 12:22 PM FUNERAL HOME LOCATION MANAGER EXAM: ??CT SPINE LUMBAR W/O CON DATE: [...] & HIP LATERAL BILAT (04/06/2023 10:07 AM FUNERAL HOME LOCATION MANAGER) Anatomical Region Laterality Modality ABD/Pelvis Computed Radiogr aphy 04/06/2023 10:0 8 AM FUNERAL HOME LOCATION MANAGER Impressions 04/06/2023 10:09 AM FUNERAL HOME LOCATION MANAGER IMPRESSION: 1. 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 No discrete acute bony pelvic or proximal femoral fracture visualized. REPORT SIGNED BY Janice Talavera M.D. Narrative 04/06/2023 10:09 AM FUNERAL HOME LOCATION MANAGER EXAM: ??XR PELVIS & HIP LATERAL BILAT [...] Hgb A1c (Glycosolated Hgb) (04/05/2023 7:07 PM FUNERAL HOME LOCATION MANAGER) HBA1C (GLYCOSOLATED HGB) 5.1 <5.7 % 04/06/2023 12:57 PM FUNERAL HOME LOCATION MANAGER [facility] EAG (EST. AVERAGE GLUCOSE) 100 <117 mg/dL 04/06/2023 12:57 PM FUNERAL HOME LOCATION MANAGER [facility] Blood 04/05/2023 7:07 PM FUNERAL HOME LOCATION MANAGER 04/05/2023 7:34 PM FUNERAL HOME LOCATION MANAGER Chuck Carpenter MD CHEMISTRY ORDERABLE Performing Organization Address City/[facility]/ZIP Co de Phone Number [facility] [address] [facility] [place] [address] * (ABNORMAL) Hemoglobin (04/03/2023 7:00 AM FUNERAL HOME LOCATION MANAGER) Only the most recent of4 resultswithin the time period is included. Hemoglobin 8.5(L) 12.0 - 16.0 gm/dL 04/03/2023 7:25 AM FUNERAL HOME LOCATION MANAGER [facility] Blood 04/03/2023 7:00 AM FUNERAL HOME LOCATION MANAGER 04/03/2023 7:17 AM FUNERAL HOME LOCATION MANAGER Nj Thorne PA-C HEMATOLOGY ORDERA BLE Performing Organization Address City/[facility]/ZIP Co de Phone Number [facility] [address] [place] [id number] * XR SPINE LUMBAR ROUTINE (04/02/2023 10:43 AM FUNERAL HOME LOCATION MANAGER) Anatomical Region Laterality Modality Spine Computed Radiogr aphy 04/02/2023 11:2 7 AM FUNERAL HOME LOCATION MANAGER Impressions 04/02/2023 11:29 AM FUNERAL HOME LOCATION MANAGER IMPRESSION: 1. Operative changes of posterior jarred and pedicle screw fixation L1-L5 with posterolateral bone graft material, grossly negative for postoperative purposes. Lumbar vertebral body alignment described in more detail above. 2. Old superior and inferior pubic rami fractures. REPORT SIGNED BY Janice Talavera M.D. Narrative 04/02/2023 11:29 AM FUNERAL HOME LOCATION MANAGER EXAM: ??XR SPINE LUMBAR ROUTINE DATE: 04/02/2023 [...] Tube-SST (Lab Use Only) (04/02/2023 7:28 AM FUNERAL HOME LOCATION MANAGER) Blood 04/02/2023 7:28 AM FUNERAL HOME LOCATION MANAGER 04/02/2023 7:53 AM FUNERAL HOME LOCATION MANAGER Bonita Estrada MD CHEMISTRY ORDERABLE Performing Organization Address City/State/[facility] Co de Phone Number [facility] [address] [place] [address] * XR C-ARM SPINE (04/01/2023 10:36 AM FUNERAL HOME LOCATION MANAGER) Anatomical Region Laterality Modality Computed Radiogr aphy 04/01/2023 12:3 5 PM FUNERAL HOME LOCATION MANAGER Impressions 04/01/2023 12:37 PM FUNERAL HOME LOCATION MANAGER IMPRESSION: 1. ??Procedural assistance. REPORT SIGNED BY DR. MARCUS JUNE Narrative 04/01/2023 12:37 PM FUNERAL HOME LOCATION MANAGER EXAM: ??XR C-ARM SPINE DATE: ?? 04/01/2023 [...] REPORT SIGNED BY DR. MARCUS JUNE Isai WHITMORE ORDERABLE * Intubation (04/01/2023 8:15 AM FUNERAL HOME LOCATION MANAGER) Narrative Monika Ireland APRN, CRNA - 04/01/2023 8:15 AM FUNERAL HOME LOCATION MANAGER Monika Ireland APRN, CRNA ? 04/01/2023 ??8:27 [...] Confirm (Lab Use Only) (04/01/2023 6:47 AM FUNERAL HOME LOCATION MANAGER) Group and Rh O Positive 04/01/2023 9:09 AM FUNERAL HOME LOCATION MANAGER [facility] Blood 04/01/2023 6:47 AM FUNERAL HOME LOCATION MANAGER 04/01/2023 7:26 AM FUNERAL HOME LOCATION MANAGER Nj Thorne PA-C BLOOD BANK ORDERA BLE [facility] [address] [address] [place] [address] * Type and Screen (04/01/2023 6:46 AM FUNERAL HOME LOCATION MANAGER) Group and Rh O Positive 04/01/2023 7:39 AM FUNERAL HOME LOCATION MANAGER [facility] Antibody Screen Negative 04/01/2023 7:39 AM FUNERAL HOME LOCATION MANAGER [facility] Blood 04/01/2023 6:46 AM FUNERAL HOME LOCATION MANAGER 04/01/2023 6:50 AM FUNERAL HOME LOCATION MANAGER Nj Thorne PA-C BLOOD BANK ORDERA BLE Performing Organization Address [facility] Co de Phone Number [facility] [address] [place] [address] [facility] [address] [address] * Partial Thromboplastin Time (04/01/2023 6:46 AM FUNERAL HOME LOCATION MANAGER) PTT 28.8 24.0 - 31.0 SEC. 04/01/2023 7:06 AM [facility] Blood 04/01/2023 6:46 AM FUNERAL HOME LOCATION MANAGER 04/01/2023 6:50 AM FUNERAL HOME LOCATION MANAGER Narrative [facility] - 04/01/2023 7:06 AM FUNERAL HOME LOCATION MANAGER aPTT Therapeutic Reference Ranges: Argatroban protocol: 60 - 85 seconds Bivalirudin protocol: 43 - 71 seconds Nj Thorne PA-C COAGULATION ORDER ABLE Performing Organization Address [facility] Co de Phone Number [facility] [address] [address] * Hematocrit (04/01/2023 6:46 AM FUNERAL HOME LOCATION MANAGER) Pathologist [facility] [place] Hematocrit 37.3 36.0 - 48.0 % 04/01/2023 7:07 AM [facility] Blood 04/01/2023 6:46 AM FUNERAL HOME LOCATION MANAGER 04/01/2023 6:50 AM FUNERAL HOME LOCATION MANAGER Nj Thorne PA-C HEMATOLOGY ORDERA BLE Performing Organization Address [facility] Co de Phone Number [facility] [address] [address] * (ABNORMAL) POCT Glucose Meter (04/01/2023 6:12 AM FUNERAL HOME LOCATION MANAGER) GLUCOSE WB METER 105(H) 60 - 100 mg/dL 04/01/2023 6:38 AM [facility] Blood 04/01/2023 6:12 AM FUNERAL HOME LOCATION MANAGER 04/01/2023 6:38 AM FUNERAL HOME LOCATION MANAGER Isai Foss MD LAB POINT OF CARE TE ST RESULTS [facility] [address] [address] from Last 3 Months Advance Directives For more information, please contact: [phone] Latest Code Status on File Code Status [...] Physician Abelardo leal Not discussed Care Teams Ladle Operator Relationship Specialty [place] [address] [address] PCP - General Internal Medicine 04/02/23 Clinic, [facility] [address] [place] [address] PCP - Primary Care Clinic 04/02/23
--- OUTSIDE RECORDS SUMMARY | 2023-04-11 15:59 | XMS_ITS | Encounter Summary ---
Author Name Unknown Organization [facility] Address [address] [place] [id number] Care Team Providers Care Concert Pianist Name Role Phone Carolynn Alvarado MD Primary Care Provider [phone] [facility], [facility] Unavailable Encounter Details Date Type Department Care Team (Latest Contact Info) Description 04/10/2023 Travel Social History Tobacco Use Types Packs/Day Years Used Date Smoking Tobacco: Never Smokeless Tobacco: Never Alcohol Use Standard Drinks/Week Comments Never 0 (1 standard drink = 0.6 oz pur e alcohol) [facility] Utilities Answer Date Recorded In the past 12 months has [employer] electric, gas, oil, or water company threatened [...] money to buy more. Never true 04/10/19 Within the past 12 months, t he [...] place to sleep or slept in a [facility] (including now)? No 04/10/2023 Sex and Gender Information Value Date Recorded Sex Assigned at Female 03/11/2023 11:10 AM UTILIZATION MANAGER Gender Identity Female 03/11/2023 11:10 AM UTILIZATION MANAGER Sexual Orientation Straight 03/11/2023 11 :10 AM UTILIZATION MANAGER documented as of this encounter Plan of Treatment Not on file documented as of this encounter Visit Diagnoses Not on filedocumented in this encounter Care Teams Concert Pianist Relationship Specialty [place] [address] [place] [address] PCP - General Internal Medicine 04/02/23 Clinic, [facility] [address] [id number] PCP - Primary Care Clinic 04/02/23 documented as of this encounter
--- OUTSIDE RECORDS SUMMARY | 2023-04-11 15:59 | XMS_ITS | Encounter Summary ---
Author Name Unknown Organization [facility] Address [address] [place] [id number] Care Team Providers Care Bi Report Developer Name Role Phone Carolynn Alvarado MD Primary Care Provider [phone] [facility] Unavailable Reason for Visit * Reason Comments Abdominal pain Encounter Details Date Type Department Care Team (Latest Contact Info) Description 04/10/2023 8:14 AM ADVERTISING EDITOR - Present Hospital Encounter A7 [address] [place] [address] [id number] Nura Medina MD [address] [place] [address] [id number] Ivis Leach MD [address] [place] [address] [id number] Intractable pain Social History Tobacco Use Types Packs/Day Years Used Date Smoking Tobacco: Never Smokeless Tobacco: Never Alcohol Use Standard Drinks/Week Comments Never 0 (1 standard drink = 0.6 oz pur e alcohol) [facility] Utilities Answer Date Recorded In the past 12 months has e electric, gas, oil, or water company [...] Sex Assigned at Female 03/11/2023 11:10 AM ADVERTISING EDITOR Gender Identity Female 03/11/2023 11:10 AM ADVERTISING EDITOR Sexual Orientation Straight 03/11/2023 11 :10 AM ADVERTISING EDITOR documented as of this encounter Last Filed Vital Signs Vital Sign Reading Time Taken Comments Blood Pressure 107/74 04/11/2023 3:08 PM ADVERTISING EDITOR Pulse 94 04/11/2023 3:08 PM ADVERTISING EDITOR Temperature 36.6 ??C (97.8 ??F) 04/11/2023 11:[address] Respiratory Rate 18 04/11/2023 4:46 AM ADVERTISING EDITOR Oxygen Saturation 99% 04/11/2023 12:30 PM ADVERTISING EDITOR Inhaled Oxygen Concentration - - Weight 60 kg (132 lb 4.4 oz) 04/10/2023 8:00 PM ADVERTISING EDITOR Height 162.6 cm (5' 4) 04/10/2023 8:00 PM ADVERTISING EDITOR Body Mass Index 22.71 04/10/2023 8:00 PM ADVERTISING EDITOR documented in this encounter Progress Notes * Magalie Ko, RN - 04/11/2023 1:44 PM CST Med-Surg Care Progression Note Type: Shift to shift summary [id number] Length of stay: 1 days Code Status: Full Code Primary Problem: Intractable pain Summary: 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 F- Feeding & Fluids: Tolerating reg diet with good po intake. A- Analgesic & Anticoagulation: Comfort Goal: Numeric, Verbal, Faces: 4 - Moderate Analgesic Pt rating pain 8-9/10 all shift. Scheduled robaxin and prn tylenol given. Repo for comfort. Has brace from home for comfort when up. Have avoided oxy and vistaril today as pt has been hypotensive requiring NS fluid bolus. Anticoagulation/DVT prevention & plan Anticoagulant plan Lovenox S- Skin: Noel Subcategory Concern(s): Sensory Perception: No Impairment Moisture: Rarely Moist Activity: Walks Occasionally Activity Interventions: Safer bundle Nutrition: Probably Inadequate Nutrition Interventions: Calorie intake Mobility: Slightly Limited Mobility Interventions: Low air loss support Friction and Shear: No Apparent Problem Total Noel Score: 19: Back incision well approximated with steri strips c/d/I. T- Telemetry: Rhythm: Sinus Rhythm Ectopy: None No tele Pt has been lightheaded when up. BP's running low-72/47 when on BSC, then 118/73 once returning to lying down. Dr. Leach has been updated and fluid bolus ordered and given. E- Emotional & Neuro: Participating in cares. Anxious and tearful at times regarding loss of her in recent years. Psych consulted Neuro Alert and Oriented. Denies n/t. R- Respiratory: On room air H- Head OUT of Bed & Activity: Activate Fall Alert? (Enter 1 or 0): 1 Pt turns and reposition self in bed Early mobility Phases 1-4: Phase 3: BSC for toileting today. U- Urologic/bowel: Size: Small (04/10/2023 10:03 PM) Voiding in the BSC today. G- Glycemic Control: Not applicable T- Treatment: Pain control, monitor BP's closely, Enc po intake and increase activity as tolerated.Monitor labs closely. I- Invasive Devices: PIV D- Discharge: TBD RTISING EDITOR * Trevon Buenrostro PA-C - 04/11/2023 8:35 AM CST Neurosurgery Progress Note Date of service: 04/11/2023 Assessment Michelle Franz is a 77 y.o. female with a history of a-fib who presents to the emergency department via EMS for evaluation of suprapubic pain. Patient underwent L1-L5 posterior spinal fusion on 04/[address] Foss. Patient has presented through the ED two times in the past week due to pain. Plan: Continue bowel regimen Continue pain regimen Consult psych for stated depression Encourage activity as tolerated PT/OT Subjective: Patient endorses the pain is not well controlled but even small doses of opioids make her too drowsy. She reports the pain is difficult to deal with given her longstanding mental health concerns. Shedenies new numbness, tingling, weakness, nausea, vomiting, headache. She denies interval change overnight but notes she successfully passed stool yesterday. Objective: Vitals - BP 102/69 Pulse 80 Temp 97.7 ??F (36.5 ??C) Resp 18 Ht 5' 4 (1.626 m) Wt 60 kg (132 lb 4.4 oz) SpO2 97% BMI 22.71 kg/m?? Temp (24hrs), Av.6 ??F (36.4 ??C), Min:97.4 ??F (36.3 ??C), Max:97.8 ??F (36.6 ??C) Physical Exam - A&Ox4, labile mood, tearful General: in no acute distress Incision: clean, dry and intact; Respiratory: Breathing unlabored Abdomen: no distention noted Strength: ACOSTA 5/5 iliopsoas, 5/5 quadriceps, 5/5 hamstrings, 5/5 anterior tibialis, 5/5 extensor hallucis longus, and 5/5 gastrocnemius. Reflex: no Hyperreflexia bilateral no Lazo's bilateral no Babinski's bilateral no Ankle Clonus bilateral Sensation: intact dermatomally in BLE Imaging: IMPRESSION: Lumbar CT 1. No adverse interval change since April 06, 2023. 2. Multilevel fusion. 3. Small foci of gas in the subcutaneous tissues on the comparison exam have resolved. No new definable collection. REPORT SIGNED BY DR. 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 Paged for pain modification. A one time dose of oxy given @ 0710 F- Feeding & Fluids: Tolerating reg diet A- Analgesic & Anticoagulation: Comfort Goal: Numeric, Verbal, Faces: 4 - Moderate Analgesic Prn oxy, tylenol and robaxin given Anticoagulation/DVT prevention & plan Anticoagulant plan Lovenox S- Skin: Noel Subcategory Concern(s): Sensory Perception: No Impairment Moisture: Rarely Moist Activity: Walks Occasionally Activity Interventions: Safer bundle Nutrition: Probably Inadequate Nutrition Interventions: Calorie intake Mobility: Slightly Limited Mobility Interventions: Low air loss support Friction and Shear: No Apparent Problem Total Noel Score: 19: no skin issues T- Telemetry: Rhythm: Sinus Rhythm Ectopy: None No tele E- Emotional & Neuro: Participating in cares Neuro Alert and Oriented R- Respiratory: On room air H- Head OUT of Bed & Activity: Activate Fall Alert? (Enter 1 or 0): 1 pt urns and reposition self in bed Early mobility Phases 1-4: Phase 3: Standing U- Urologic/bowel: Size: Small (04/10/2023 10:03 PM) Voiding in the BR G- Glycemic Control: Not applicable T- Treatment: Pain control, I- Invasive Devices: PIV D- Discharge: TBD RTISING EDITOR * Rachel Mason RN - 04/10/2023 10:51 PM CST [id number] Admitted for intractable pain. Reports 10/10 pain but pt is able to ambulate short distance and reposition in bed ind. Large Bm x2 this evening in BSC. Oxycodone and tylenol given. Reported pain changed from sharp pain to an aching pain. A&O. Able to make needs known. RTISING EDITOR * Janice Arriaza RN - 04/10/2023 5:35 PM CST P. Admission A. Condition on Admit: alert, in distress related to pain. Patient/Family Concerns: Patient expressed concern about pain relief . I. Initial Interventions included: notified MD of patient arrival. Orientation to Unit: Patient oriented to how to call for help, name of assigned resident care technician, initialphysician orders, hourly rounding procedures, belongings checklist, unit and plan of care. R. Patient expressed understanding of information.. Janice Arriaza RN RTISING EDITOR * Carlton Duncan RN - 04/10/2023 5:26 PM CST Pt complaining about pain. Paged MD X2, awaiting response. Pt given prn Vistaril. Report called to A7 nurse. RTISING EDITOR * Susy Gibbons PA-C - 04/10/2023 3:34 PM CST Neurosurgery Progress Note: Subjective: Patient seen and examined this afternoon. Patient s/p L1-L5 posterior spinal fusion on 04/[address] Foss. Patient noting significant pain today on exam. Patient states that she has not been wearing her brace as instructed and states that she has not eaten for the past week. Per chart review, appears patient's last bowel movement was the day before surgery, but states she thinks this is due tothe fact that she has not eaten anything since surgery. Patient noting suprapubic pain today on exam. Patient states that her family may be able to deliver her brace tomorrow as she did not bring it with her. Objective: Vitals: 04/10/23 1415 04/10/23 1430 04/10/23 1519 04/10/23 1730 BP: 137/83 (!) 142/90 (!) 160/88 Pulse: 77 75 75 76 Resp: 16 17 Temp: 97.7 ??F (36.5 ??C) 97.5 ??F (36.4 ??C) SpO2: 97% 95% 97% 98% Alert oriented x3, in moderate emotional distress Sensation intact throughout lower extremites Motor: 5/5 strength with hip flexion, dorsiflexion/plantarflexion bilaterally. Difficulty with kneeextension, particularly on left due to pain. Incision dry and intact. Steristrips in place. No evidence of erythema, induration, drainage or dehiscence. WBC Date Value Ref Range Status 04/10/2023 18.7 (H) 4.3 - 10.8 K/uL Final Imaging: CT scans reviewed, no evidence of hardware loosening or failure. Discussed with Dr. Foss. Assessment/Plan: Michelle Franz is a 77 y.o. female with a history of a-fib who presents to the emergency department via EMS for evaluation of suprapubic pain. Patient underwent L1-L5 posterior spinal fusion on 04/[address] Foss. Patient has presented through the ED two times in the past week due to pain. Patient notes she has not had a BM since surgery. States she also has not eaten much since surgery. CT scan negative for any evidence of hardware loosening/failure or malpositioning. WBC 18.7 today. UA positive for protein. Lipase elevated. Patient grossly neuro intact on exam, knee extension difficult secondary to pain. Incision without evidence of drainage, erythema, induration, or dehiscence. -Aggressive bowel regimen, prns available -Could consider ortho consult given most recent hip/pelvis imaging -Consider brace order if patient unable to obtain her brace from home, recommended that patient usethis while ambulating -PT/OT as tolerated -Medical management of pain. Scheduled muscle relaxant. Continue to refrain from using narcotics. PRN oxycodone added to regimen, use sparingly. Discussed case with Dr. Foss and the RN on the floor. Please call or page neurosurgery with any questions or concerns. Susy Macario PA-C 6:00 PM [facility] [place] Office: [phone] RTISING EDITOR documented in this encounter H&P Notes * Ivis Leach MD - 04/10/2023 1:43 PM CST ADMISSION HISTORY AND PHYSICAL Patient Name: Michelle Franz Address: [address] [place] [address] Age: 77 y.o. 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 Discharged home from the hospital on 04/03/2023 and due to pain, return to the hospital on 04/05/2022. She was started back on steroids and her pain regimen was increased and she discharged on 04/07/2023. Unfortunately, she was still unable to get pain control athome and returns today with a chief complaint of intractable pain in her back and pain in her left groin. She denies paresthesias and continence. In fact, she is constipated and has not had a bowel movement in 10 days. She states that is not so unusual for her. She also complains of groin pain on the left side. CT abdomen and pelvis shows dilated intrahepatic and extrahepatic bile ducts in the setting of a prior cholecystectomy. Her bilirubin is normal making biliary stasis unlikely. No other acute findings. CT of the lumbar spine shows no adverse interval change since April 06, 2023. She has a leukocytosis of 18.7 likely secondary to the steroids that she has no fever. Her urinalysis is negative as is her chest x-ray. PAST MEDICAL HISTORY: Past Medical History: Diagnosis Date Chronic pain low back pain Heartburn HTN (hypertension) MRSA (methicillin resistant Staphylococcus aureus) 2014 12 yrs ago; jimena (2014 w/outside facility) CLEARED by Infection Prevention [...] 1 tablet (25 mg) by mouth Daily. dexAMETHasone (DECADRON) 4 mg oral tablet No No Sig: Take 1 tablet (4 mg) by mouth every 8 (eight) hours. After 2 days, take 1 tablet every 12 hours. Then, after 2 more days, take 1 tablet per day. Continue 1 tablet per day for 2 additional days docusate sodium (COLACE) 100 mg oral capsule No No Sig: Take 1 capsule (100 mg) by mouth twice a day. ergocalciferol (VITAMIN D2) 1,250 mcg (50,000 unit) [...] STIMULATOR) supply Patient No No Sig: Company: [employer] for home use. oxyCODONE, immediate release, (ROXICODONE) 5 mg oral tablet No No Sig: Take 1-2 tablets (5-10 mg) by mouth every 6 (six) hours as needed. oxyCODONE-acetaminophen (PERCOCET) 5-325 mg oral tablet No No Sig: Take 1 tablet by mouth every 4 (four) hours as needed for pain (max 8/day). polyethylene glycol (MIRALAX) 17 gram oral powder No No Sig: Take 17 g by mouth twice a day. Mix each dose in 4-8 ounces of liquid as directed. pregabalin (LYRICA) 25 mg oral capsule 03/31/2023 [...] Facility-Administered Medications: None ALLERGIES: Lisinopril FAMILY HISTORY: Noncontributory SOCIAL HISTORY: Social History Socioeconomic History Marital [...] of Health Food Insecurity: No Food Insecurity (04/05/2023) Hunger Vital Sign Worried About Running Out of Food in the Last Year: Never true Ran Out of Food in the Last Year: Never true Transportation Needs: No Transportation Needs (04/05/2023) PRAPARE - Transportation Lack of Transportation (Medical): No Lack of Transportation (Non-Medical): No Intimate Partner Violence: Not At Risk (04/10/2023) Humiliation, Afraid, Rape, and Kick questionnaire Fear of Current or Ex-Partner: No Emotionally Abused: No Physically Abused: No Sexually Abused: No Housing Stability: Low Risk (04/05/2023) Housing Stability Vital Sign Unable to Pay for Housing in the Last Year: No Number of Places Lived in the Last Year: 1 Unstable Housing in the Last Year: No REVIEW OF SYSTEMS: A comprehensive review of systems was negative except for items noted in the HPI/Subjective: PHYSICAL EXAM: BP (!) 148/84 Pulse 68 Temp 98 ??F (36.7 ??C) Resp 19 SpO2 94% GENERAL: No apparent distress, Alert and oriented x 3 EYES: No icterus, PERRLA HENT: Normocephalic, atraumatic, no JVD, no lymphadenopathy, mucous membranes moist CV: RRR, +S1/S2, no murmurs appreciated PULM: Clear to auscultaion bilaterally ABD: Soft, non-tender, non-distended, normal bowel sounds EXT: Normal reflex bilateral knees, no paresthesias, no Babinski, symmetric strength. LABS: Results for orders placed or performed during the hospital encounter of 04/10/23 (from the past 24 hour(s)) Basic Metabolic Profile Result Value Ref Range Sodium 137 136 - 145 mmol/L Potassium 3.8 3.4 - 5.1 mmol/L Chloride 104 98 - 108 mmol/L Carbon Dioxide 26 20 - 31 mmol/L BUN (Urea Nitro) 15 9 - 23 mg/dL Creatinine 0.56 0.55 - 1.02 mg/dL Est GFR (CKD-EPI) >60.00 >60.00 mL/min/1.73m2 Glucose 115 (H) 74 - 106 mg/dL Calcium, Serum 8.3 (L) 8.7 - 10.4 mg/dL Anion Gap 7.0 0.0 - 15.0 mmol/L CBC w/diff Result Value Ref Range WBC 18.7 (H) 4.3 - 10.8 K/uL RBC 3.76 (L) 4.20 - 5.40 M/uL Hemoglobin 11.3 (L) 12.0 - 16.0 gm/dL Hematocrit 34.2 (L) 36.0 - 48.0 % MCV 91 80 - 100 fL MCH 30 27 - 33 pg MCHC 33 33 - 36 gm/dL RDW 12.9 11.5 - 14.5 % Platelet Count 814 (H) 150 - 400 K/UL MPV 8.6 6.5 - 12 fL PMN % 70.9 % IG % 3.8 (H) <=1.0 % Lymphocyte % 15.5 % Monocyte % 9.1 % Eosinophil % 0.4 % Basophil % 0.3 % PMN Absolute 13.27 (H) 1.80 - 7.80 K/uL Lymphocyte Absolute 2.91 1.00 - 4.00 K/uL Monocyte Absolute 1.70 (H) 0.00 - 1.00 K/uL Eosinophil Absolute 0.07 0.00 - 0.45 K/uL Basophil Absolute 0.06 0.00 - 0.20 K/uL Nucl RBC % 0.2 (H) 0.0 - 0.0 /100 WBC Nucl RBC Absolute 0.03 (H) 0.00 - 0.00 K/uL LFTs Result Value Ref Range ALT 48 (H) 7 - 40 U/L Alkaline Phosphatase 101 46 - 116 U/L AST (SGOT) 14 13 - 40 U/L Protein Total 7.0 5.7 - 8.2 g/dL Albumin 3.3 (L) 3.4 - 5.0 g/dL Bilirubin-Direct 0.13 <0.40 mg/dL Bilirubin-Total 0.4 0.3 - 1.2 mg/dL Lipase Result Value Ref Range Lipase 112 (H) 12 - 53 U/L Urine Macroscopic (POCT) Dip Result Value Ref Range PH URINE 7.0 4.5 - 8.0 SP.GRAVITY, UA 1.015 1.015 - 1.025 Glucose, UA Negative Negative mg/dL Ketone, UA Negative Negative mg/dL OCCULT BLOOD, UA Negative Negative, Trace, TRACE-LYSED, TRACE-INTACT Bilirubin, UA Negative Negative UROBILINOGEN, UA 1.0 0.2 - 1.0 EU/dL NITRITE, UA Negative Negative WBC ESTERASE, UA Negative Negative, Trace PROTEIN, UA 30 (A) Negative, Trace mg/dL CT reconstruction spine lumbar 04/10/23 IMPRESSION: 1. No adverse interval change since April 06, 2023. 2. Multilevel fusion. 3. Small foci of gas in the subcutaneous tissues on the comparison exam have resolved. No new definable collection. CT ABD/PELVIS with IV contrast 04/10/23 IMPRESSION: 1. Dilated intrahepatic and extrahepatic bile ducts in the setting of prior cholecystectomy. Correlate with laboratory values to assess for biliary stasis. 2. No other acute finding in the abdomen or pelvis. 3. Scoliosis. Multilevel fusion, similar to the recent comparison exam. No finding of hardware failure. EKG: Ordered ASSESSMENT: Principal Problem: Intractable pain 77 year old female with a PMH of HTN, Afib not on anticoagulation, Depression, insomnia, GERD and chronic back pain s/p a lumbar fusion on 04/01/[address] Cerda. She presents back to the ED for the second time since her surgery for intractable pain and left leg weakness and a leukocytosis of unknown etiology. PLAN: Intractable back pain S/p lumbar fusion on 04/01/23 Groin pain, L - CT lumbar spine shows no adverse interval change since April 06, 2023. - Patient has had chronic pain prior to the surgery and was on cymbalta, vistaril, oxyodone, lyricaand zanaflex. - IV pain meds on top of orals to get pain control. Once achieved, can start transitioning to oralsalone. - US to rule out dvt HTN Afib, not on anticoagulation [employer]ER [employer]IST regimen with amlodipine 10 mg daily and atenolol 25 mg daily. Continue with hold parameters. -Patient reports that she first went into A-fib in February. She and her doctor decided against anticoagulation as she was supposed to have spinal surgery in March. She is currently wearing a Zio patch. They were considering starting anticoagulation as an outpatient soon. After neurosurgery wheezing, will consider starting anticoagulation with a DOAC. -Telemetry LEUKOCYTOSIS -Likely secondary to steroids. -see #1 above re: scans--normal -UA neg -CXR ordered, pending -procal added on LFT elevation -CT shows bile duct dilitation in setting of cholecystectomy. Normal bili level making status/GI source of infection unlikely. -Reduce Tylenol dose to 3 g max for liver adjustment -Monitor Constipation -she declined an enema and has been taking senna daily without luck. She will consider a suppository but prefers lactulose. CODE STATUS: Full Code DVT prophylaxis: lovenox, DVT prophylaxis for now. Once plan has been determined, could consider starting a DOAC inpatient. GI prophylaxis: ppi DISPOSITION: Anticipated date of discharge 3 days, Criteria for discharge is pain control and safe discharge LENGTH OF STAY: IP - Anticipated LOS >2Midnights due to acuity of clinical presentation requiring inpatient level of care Patient has been hospitalized for IV pain control s/p lumbar fusion on 04/01/23. She has failed outpatient pain management x 2 in the last 2 weeks requiring IV management and proven p.o medication control. Likely needs TCU. Ivis Leach MD RTISING EDITOR documented in this encounter Nursing Notes * Magalie Ko RN - 04/11/2023 1:00 PM CST Problem: Falls/Injury-Risk of Goal: Absence of Falls/Injury Outcome: Met this shift Flowsheets Taken 04/11/2023 0900 Medication: Standard Interventions in Place Reviewed Prescribed Medications that Could Predispose to Falling Patient/Family Reminded about Prescribed Medications that Could Predispose to Falling Consults: Social Service Consult Taken 04/11/2023 0830 Environmental Safety Interventions: Standard Interventions in Place Fall Risk Light on Outside Patient Room Fall Risk clinical admissions manager Door (NMR) Patient/Family Reminded Regarding Fall Prevention Frequent Re-Orientation and Repetitive Reminders to Ask for Assistance High Risk Armband On (Green Bracelet) Hi-Lo Bed (Versa-Care) Keep Assistive Device Close At All Times Mobility Safety Interventions: Standard Interventions in Place Stay Within Arms Reach Use Assistive Device When Patient Is Up Transfer/Gait Belt In Use When Patient Is Up Bed Alarm on Fall Prevention Slippers Remind Patient to Ask for Assistance When Getting Up Weight Bearing Test Assessment of Sensation and Motor Function Prior to Ambulation Elimination Safety Interventions: Standard Interventions in Place Stay Within Arms Reach Offered/Assisted with Toileting Every 2 Hours Bedside Commode or Raised Toilet Seat Note: Bed alarm on. Call light within reach. Purposeful hourly rounding done. Problem: Anticoagulation, pharmacologic therapy Goal: Adheres to therapeutic regimen SQ lovenox given as scheduled. Outcome: Met this shift Problem: Mobility - Impaired Goal: Demonstrates ability to perform physical activity independently or with assistive devices as needed Pt is able to get up to BSC and amb in room with walker, gait belt and sba. Outcome: Met this shift Problem: Pain Goal: Exhibits reduction in pain to a level of acceptable comfort Pt rates pain 8-9/10 all shift, prn tylenol and scheduled robaxin given with some relief. Have avoided oxy and vistaril today secondary to pt running hypotensive and requiring fluid bolus. Ice packs offered and repo for comfort. Pt does appear to rest comfortably between cares. Outcome: Met this shift RTISING EDITOR * Miroslava Alonzo LICSW - 04/11/2023 10:57 AM CST Problem: Discharge Planning Goal: Establish appropriate post-hospitalization placement Outcome: Ongoing Flowsheets (Taken 04/11/2023 1057) Date of Last CM Visit: 04/11/23 Discharge Planning Initial Assessment Patients chart reviewed. Patient discussed in rounds. Admitting diagnoses: Intractable pain [[id number]] Admitted from: Home Prior: Living Arrangements: Children- Daughter Support Systems: Children;Family members Primary decision maker: Patient DME prior to admission: None, no HCD on file. Anticipated Discharge Needs: TBD Care coordination initiated: Chart reviewed;Care discussed during rounds with nursing. SW met with pt at bedside and introduced self and role. Pt reports that she lives in a private residence on the same property as her daughter. Pt states that prior to her surgery she was independent with all ADL's and IADL's. Pt did not use any assistive devices for mobility. Pt reports no history of home health care but would be interested in [place] [facility] through Veda Jain. Pt has established PCP with Carolynn Alvarado MD. Pt's daughter can provide transportation home at discharge. Barriers to discharge: None identified Care management will continue to follow. RODRIGUE Pedersen LICSW [employer] Sergeant RTISING EDITOR * Robbie Landaverde RN - 04/11/2023 4:49 AM CST Problem: Falls/Injury-Risk of Goal: Absence of Falls/Injury Outcome: Met this shift Flowsheets (Taken 04/11/2023 0449) Environmental Safety Interventions: Standard Interventions in Place Mobility Safety Interventions: Standard Interventions in Place Elimination Safety Interventions: Standard Interventions in Place Medication: Standard Interventions in Place Problem: Confusion - Acute, Actual or Risk of Goal: Maintains/improves cognitive status within limits of condition Outcome: Met this shift Problem: Communication Goal: Demonstrates/exhibits ability to communicate needs effectively Outcome: Met this shift Problem: SAFETY Goal: *Communicates safety needs Outcome: Met this shift Problem: Venous Thromboembolism (VTE) Goal: Absence of venous thromboembolism (VTE) Outcome: Met this shift RTISING EDITOR * Rachel Mason RN - 04/10/2023 8:30 PM CST Problem: Confusion - Acute, Actual or Risk of Goal: Maintains/improves cognitive status within limits of condition Outcome: Met this shift Problem: Mobility - Impaired Goal: Demonstrates ability to perform physical activity independently or with assistive devices as needed Outcome: Met this shift Problem: Communication Goal: Demonstrates/exhibits ability to communicate needs effectively Outcome: Met this shift Problem: SAFETY Goal: *Communicates safety needs Outcome: Met this shift RTISING EDITOR documented in this encounter ED Notes * Josie Giron RN - 04/10/2023 2:43 PM CST Gave report to Rivas REYNOSO accepting the patient. All questions answered. Patient updated on plan. RTISING EDITOR * Josie Giron RN - 04/10/2023 2:30 PM CST Checked on the patient to reassess pain. Patient reports pain is still 9/10, stating I haven't hada pain pill since 0630 this morning. RN explained that the doses of fentanyl and tylenol she was given should hopefully be alleviating her pain. The patient then said yes but it doesn't last. She then reported my pain is fine when I am resting and not moving and rolled over to lay on her side and get comfortable. RN again asked the patient to rate her pain and she reported 9/10. RTISING EDITOR * Josie Giron RN - 04/10/2023 1:47 PM CST Patient declined mag hydroxide at this time stating that stuff won't do anything for me. MD notified. Spine team at bedside. RTISING EDITOR * Josie Giron RN - 04/10/2023 1:02 PM CST Per MD and patient - will defer enema at this time per patient request. Will proceed with MoM. RTISING EDITOR * Josie Giron RN - 04/10/2023 11:19 AM CST Post void bladder scan - 64mL. RTISING EDITOR * Josie Giron RN - 04/10/2023 11:03 AM CST Patient to CT with transport. RTISING EDITOR * Josie Giron RN - 04/10/2023 9:46 AM CST RN assisted patient in ambulation to bathroom. Patient required a heavy assist x1 and reported weakness to her left leg which has been ongoing since surgery. While walking back to her room, the patient reported increased pain in her abdomen while standing upright that is alleviated while bending forward. Patient safely assisted back to bed. Urine collected. RTISING EDITOR * Nura Medina MD - 04/10/2023 8:27 AM CST CHIEF COMPLAINT: Abdominal pain HPI: Initial history obtained at 8:27 AM 04/10/23. Reported by patient. Michelle Franz is a 77 y.o. female with a history of a-fib who presents to the emergency department via EMS for evaluation of abdominal pain. The patient reports having a spinal fusion a week ago. She was admitted due to post operative pain and then was sent home after improving. When at home, Michelle atwood ates she initially started feeling better but then her pain got worse again especially in her abdomen. She attempted to perform an enema on herself and went she went to have a bowel movement, she noticed clear mucus come out along with a piece of sponge which she believe came out of her bowels. Her last bowel movement was the day before her surgery but she believes this is because she has not been able to eat anything after surgery. She states she has a history of constipation and has had issues with her bowel movements most of her life. At this time, the patient rates her pain a 7/10. Independent Historian: None - Patient only Review of External Notes: Reviewed discharge note from 04/03/23, patient had L1- L5 posterior fusion with instrumentations by Dr. Foss. She was admitted for post operative pain from 04/05-04/07 and was discharged after pain improved with oxycodone and senna-s prescribed for home. MEDICATIONS: amLODIPine (NORVASC) 10 mg oral tablet atenolol (TENORMIN) 25 mg oral tablet calcium carbonate (TUMS) 200 mg calcium (500 mg) oral chew tab desipramine (NORPRAMIN) 25 mg oral tablet dexAMETHasone (DECADRON) 4 mg oral tablet docusate sodium (COLACE) 100 mg oral capsule DULoxetine (CYMBALTA) 20 mg oral delayed release capsule DULoxetine (CYMBALTA) 60 mg oral delayed release capsule ergocalciferol (VITAMIN D2) 1,250 mcg (50,000 unit) oral capsule famotidine (PEPCID) 20 mg oral tablet hydrOXYzine pamoate (VISTARIL) 25 mg oral capsule LORazepam (ATIVAN) 0.5 mg oral tablet medical supply, miscellaneous (ELECTRICAL BONE GROWTH STIMULATOR) oxyCODONE, immediate release, (ROXICODONE) 5 mg oral tablet oxyCODONE-acetaminophen (PERCOCET) 5-325 mg oral tablet polyethylene glycol (MIRALAX) 17 gram oral powder pregabalin (LYRICA) 25 mg oral capsule senna-docusate (SENNA-S) 8.6-50 mg oral tablet tiZANidine (ZANAFLEX) 2 mg oral tablet PAST MEDICAL HISTORY: HTN MRSA hx A-fib PAST SURGICAL HISTORY: Cholecystectomy Hysterectomy Neck fusion Spinal fusion PHYSICAL EXAM: Physical Exam Temperature: 98 ??F (36.7 ??C) HR: 75 Respirations: 15 BP: (!) 151/95 SpO2: 95 % General: Laying in bed HENT: No external evidence of trauma. Neck: Moving neck freely. Eyes: PERRL, Conjunctiva clear CV: Tachycardic, Regular Rhythm. No murmurs. Resp: Lungs clear throughout. No wheezes, rales, or rhonchi. Abdomen: Soft, nontender, nondistended. Extremities/MSK: No lower extremity edema or tenderness. No obvious deformities. Neuro: Alert and conversant Skin: Warm and dry. No visible skin rashes. Psych: Normal affect, appropriate ED COURSE: Laboratory: Labs Reviewed BASIC METAB PROFILE - Abnormal; Notable for the following components: Result Value Glucose 115 (*) Calcium, Serum 8.3 (*) All other components within normal limits CBC/DIFF - Abnormal; Notable for the following components: WBC 18.7 (*) RBC 3.76 (*) Hemoglobin 11.3 (*) Hematocrit 34.2 (*) Platelet Count 814 (*) IG % 3.8 (*) PMN Absolute 13.27 (*) Monocyte Absolute 1.70 (*) Nucl RBC % 0.2 (*) Nucl RBC Absolute 0.03 (*) All other components within normal limits LIVER PROFILE - Abnormal; Notable for the following components: ALT 48 (*) Albumin 3.3 (*) All other components within normal limits LIPASE - Abnormal; Notable for the following components: Lipase 112 (*) All other components within normal limits URINE MACROSCOPIC (POCT) DIP - Abnormal; Notable for the following components: PROTEIN, UA 30 (*) All other components within normal limits Imaging: CT Recon L/S Spine Final Result IMPRESSION: 1. No adverse interval change since April 06, 2023. 2. Multilevel fusion. 3. Small foci of gas in the subcutaneous tissues on the comparison exam have resolved. No new definable collection. REPORT SIGNED BY DR. Carmen Duarte CT ABDOMEN & PELVIS W/O ORAL W IV CON Final Result IMPRESSION: 1. Dilated intrahepatic and extrahepatic bile ducts in the setting of prior cholecystectomy. Correlate with laboratory values to assess for biliary stasis. 2. No other acute finding in the abdomen or pelvis. 3. Scoliosis. Multilevel fusion, similar to the recent comparison exam. No finding of hardware failure. REPORT SIGNED BY DR. CARMEN DUARTE Interventions: Medications saline FLUSH syringe 1-10 mL (40 mL Intravenous Given 04/10/23 1113) magnesium hydroxide (MILK OF MAGNESIA) suspension 30 mL (has no administration in time range) iohexol 350 mgI/mL (OMNIPAQUE) 1-150 mL (100 mL Intravenous Given 04/10/23 1113) fentaNYL (SUBLIMAZE) injection 50 mcg (50 mcg Intravenous Given 04/10/23 1255) Assessments: I re-evaluated the patient multiple times during their stay in the emergency department. Notable Events: Social Determinants of Health affecting care: None ED Vitals: Patient Vitals for the past 24 hrs: BP Temp Pulse Resp SpO2 04/10/23 1300 -- -- 68 19 94 % 04/10/23 1245 -- -- 84 14 98 % 04/10/23 1230 (!) 148/84 -- 78 15 96 % 04/10/23 1215 -- -- 75 11 96 % 04/10/23 1200 (!) 152/88 -- 90 14 99 % 04/10/23 1145 139/73 -- 78 17 94 % 04/10/23 1130 (!) 143/76 -- 77 17 93 % 04/10/23 1115 126/72 -- 72 18 98 % 04/10/23 1100 -- -- 83 21 95 % 04/10/23 1045 135/78 -- 76 19 95 % 04/10/23 1030 (!) 141/78 -- 76 18 94 % 04/10/23 1015 137/80 -- 75 19 95 % 04/10/23 1000 (!) 140/79 -- 74 17 95 % 04/10/23 0945 134/69 -- 74 20 95 % 04/10/23 0930 (!) 150/85 -- 70 20 95 % 04/10/23 0915 (!) 144/83 -- 74 18 97 % 04/10/23 0900 -- -- 77 13 98 % 04/10/23 0845 91/80 -- 76 16 97 % 04/10/23 0830 (!) 140/67 -- 73 17 95 % 04/10/23 0816 (!) 151/95 98 ??F (36.7 ??C) 74 18 96 % 04/10/23 0815 (!) 151/95 -- 75 15 95 % MDM: ED Course as of 04/10/23 1503 Khloe Apr 10, 2023 0839 Hx most likely c/w with constipation vs uti. Also could be some surgical complications, her belly is actually soft however she is having some smelly urine and some decreased BMs since her surgery. She also states not been eating well. Did do a rectal examination chaperoned by ED RN, there was no stool in the vault, with abdominal pain, no obvious need for fecal disimpaction, will get CT imaging and screening labs, she has an enema at home although this was a low volume enema. Will get urine as well. Will reassess [ZF] 0933 WBC is elevated to 18.7 from 5.2 3d ago, thrombocytosis, left shift [ZF] 1002 Lipase mildly elevated but not >3x upper limit of normal. [ZF] 1003 LFT with minimal ALT elevated [ZF] 1005 UA without infection [ZF] 1211 No acute findings on CT [ZF] 1242 Significant pain, will try some pain medications and try enema, she is refusing trimeth/sulfa get some pain medication we did discuss that this could worsen any potential constipation. [ZF] 1316 Consultations/Discussion of Management or Tests: I discussed the case with Albaro of the [facility] spine service. Recommendations: Agree with admission, someone from their team will come and assess. [ZF] 1342 Consultations/Discussion of Management or Tests: I discussed the case with Dr. Leach of the hospitalist service. Recommendations: agree with admission. [ZF] ED Course User Index [ZF] Nura Medina MD DIAGNOSIS: ICD-10-CM 1. Abdominal pain, unspecified abdominal location R10.9 DISPOSITION: Admit to the care of hospitalist ATTESTATION: Scribe Attestation: I, Lilian Jerry, am serving as a scribe to document services personally performed by Nura Medina MD, based on my observations and the provider's statements to me. Provider Attestation: Portions of this medical record were completed by a scribe. UPON MY REVIEW AND AUTHENTICATION BY ELECTRONIC SIGNATURE, this confirms (a) I performed the applicable clinical services, and (b) the record is accurate. Nura Medina MD 04/10/23 04/10/2023 [facility] EMERGENCY DEPARTMENT RTISING EDITOR * Josie Giron RN - 04/10/2023 8:17 AM CST The patient presents from home in [place] via EMS for back and abdominal pain. The patient underwent a spinal fusion on 04/01/22 (9 days ago) and since has had persistent back and diffuse abdominalpain. She was seen in [place] and here at [facility] a few days ago and was told to return if symptoms persisted. This morning, the pain was 10/10 (sharp, thobbing) so she called EMS. She took a home dose of percocet at 0630 at the time she called EMS. Just prior to arrival here, EMS gave 50mcg intranasal Fentanyl which brought her pain to a 7/10. She was comfortable en route and VSS. RTISING EDITOR documented in this encounter Miscellaneous Notes * Med Reconciliation - Arely Lynch, Pharm D - 04/10/2023 2:44 PM ADVERTISING EDITOR PHARMACY MEDICATION RECONCILIATION NOTE MEDICATION RECONCILIATION on admission by pharmacy has been completed. Prior to admission medications were reviewed with patient The [facility] medication list has been updated and reflected in the chart below. Please use the [facility] medication section for ordering home doses during admission. Medication related issues (discrepancies, interactions, additions, removals, changes, compliance/adherence): Removed tizanidine. Pt said it gave her nightmares. Added robaxin 2. She started the decadron taper on Friday 3. PRIOR TO ADMISSION MEDICATION LIST: Prior to Admission Medications Prescriptions Last Dose Informant Patient Reported? Taking? DULoxetine (CYMBALTA) 20 mg oral delayed release capsule 04/09/2023 Patient Yes Yes Si capsule (20 mg) once daily. DULoxetine (CYMBALTA) 60 mg oral delayed release capsule 04/09/2023 Patient Yes Yes Sig: Take 1 capsule (60 mg) by mouth once daily. LORazepam (ATIVAN) 0.5 mg oral tablet PRN Patient Yes Yes Sig: Take 2 tablets (1 mg) by mouth at bedtime as needed. amLODIPine (NORVASC) 10 mg oral tablet 04/09/2023 Patient Yes Yes Sig: Take 1 tablet (10 mg) by mouth Daily. atenolol (TENORMIN) 25 mg oral tablet 04/09/2023 Yes Yes Sig: Take 1 tablet (25 mg) by mouth once daily. calcium carbonate (TUMS) 200 mg calcium (500 mg) oral chew tab 04/09/2023 Patient No Yes Sig: Chew 1 tablet (500 mg) twice a day with breakfast and dinner. desipramine (NORPRAMIN) 25 mg oral tablet 04/09/2023 Patient Yes Yes Sig: Take 1 tablet (25 mg) by mouth Daily. dexAMETHasone (DECADRON) 4 mg oral tablet 04/10/2023 No Yes Sig: Take 1 tablet (4 mg) by mouth every 8 (eight) hours. After 2 days, take 1 tablet every 12 hours. Then, after 2 more days, take 1 tablet per day. Continue 1 tablet per day for 2 additional days docusate sodium (COLACE) 100 mg oral capsule Past Week No Yes Sig: Take 1 capsule (100 mg) by mouth twice a day. ergocalciferol (VITAMIN D2) 1,250 mcg (50,000 unit) oral capsule Not Taking Patient No No Sig: Take 1 capsule (50,000 Units) by mouth every 7 (seven) days. famotidine (PEPCID) 20 mg oral tablet 04/09/2023 Patient Yes Yes Sig: Take 1 tablet (20 mg) by mouth once daily. hydrOXYzine pamoate (VISTARIL) 25 mg oral capsule PRN No Yes Sig: Take 1 capsule (25 mg) by mouth every 6 (six) hours as needed. medical supply, miscellaneous (ELECTRICAL BONE GROWTH STIMULATOR) supply Patient No No Sig: Company: [employer] for home use. methocarbamoL (ROBAXIN) 500 mg oral tablet 04/09/2023 Yes Yes Sig: Take 1 tablet (500 mg) by mouth every 6 (six) hours as needed. oxyCODONE, immediate release, (ROXICODONE) 5 mg oral tablet PRN No Yes Sig: Take 1-2 tablets (5-10 mg) by mouth every 6 (six) hours as needed. polyethylene glycol (MIRALAX) 17 gram oral powder PRN No Yes Sig: Take 17 g by mouth twice a day. Mix each dose in 4-8 ounces of liquid as directed. pregabalin (LYRICA) 25 mg oral capsule 04/09/2023 Patient Yes Yes Sig: Take 1 capsule (25 mg) by mouth twice a day. senna-docusate (SENNA-S) 8.6-50 mg oral tablet PRN No Yes Sig: Take 1 tablet by mouth twice a day as needed. Facility-Administered Medications: None This patient obtains medications from [id number] [place], [place] - [address] [place] [address] At [facility] [address] [place] [address] Pharmacy. Thank you for the opportunity to participate in the care of this patient. Phone #:[phone] or [phone] Time spent reconciling meds:15 min Location: face to face encounter RTISING EDITOR documented in this encounter Plan of Treatment Not on file documented as of this encounter Procedures The patient is currently admitted. The information in this section might not be complete until the patient is discharged. Procedure Name Priority Date/Time Associated Diagnosis Comments PROCALCITONIN Add On 04/11/2023 11:22 AM ADVERTISING EDITOR CALCIUM, IONIZED STAT 04/11/2023 11:2 2 AM ADVERTISING EDITOR MAGNESIUM STAT 04/11/2023 11:22 AM ADVERTISING EDITOR LIPASE STAT 04/11/2023 11:22 AM ADVERTISING EDITOR COMPREHENSIVE METABOLIC PANEL STAT 04/11/2023 11:22 AM ADVERTISING EDITOR CBC (HGB,HCT,WBC,RBC,PLATEL ET) STAT 04/11/2023 11:22 AM ADVERTISING EDITOR PROTIME/INR STAT 04/11/2023 11:22 AM ADVERTISING EDITOR US VENOUS EXTREM LOW RT Routine 04/10/19 7:29 PM ADVERTISING EDITOR XR CHEST AP PORT STAT 04/10/2023 2:[address] RECONSTRUCTION SPINE LUMBAR STAT 04/10/2023 11:[address] ABDOMEN & PELVIS W/O ORAL W IV CON STAT 04/10/2023 11:12 AM ADVERTISING EDITOR URINE MACROSCOPIC (POCT) DIP Routine 04/10/2023 9:53 AM ADVERTISING EDITOR PROCALCITONIN Add On 04/10/2023 9:15 AM ADVERTISING EDITOR LIPASE STAT 04/10/2023 9:15 AM ADVERTISING EDITOR LIVER PROFILE STAT 04/10/2023 9:15 AM ADVERTISING EDITOR BASIC METAB PROFILE STAT 04/10/2023 9 :15 AM ADVERTISING EDITOR CBC/DIFF STAT 04/10/2023 9:15 AM ADVERTISING EDITOR documented in this encounter Results * Procalcitonin (04/11/2023 11:22 AM ADVERTISING EDITOR) Only the most recent of2 resultswithin the time period is included. Procalcitonin <0.04 <=0.05 ng/mL 04/11/2023 2:56 PM [facility] Blood Venipuncture / Unknown 04/11/2023 11:22 AM ADVERTISING EDITOR 04/11/2023 11:30 AM ADVERTISING EDITOR Narrative [facility] - 04/11/2023 2:56 PM [facility] PROCALCITONIN REFERENCE RANGE <0.1 ng/mL: ?Bacterial infection [...] shock. ? Ivis Leach MD CHEMISTRY ORDERABLE [facility] [address] [place] [address] * (ABNORMAL) Calcium, Ionized (04/11/2023 11:22 AM ADVERTISING EDITOR) Calcium, Ionized 1.12(L) 1.13 - 1.32 mmol/L 04/11/2023 11:34 AM ADVERTISING EDITOR [facility] Blood Venipuncture / Unknown 04/11/2023 11:22 AM ADVERTISING EDITOR 04/11/2023 11:29 AM ADVERTISING EDITOR Ivis Leach MD CHEMISTRY ORDERABLE Performing Organization Address [facility] Phone Number [facility] [place] [address] * Protime/INR (04/11/2023 11:22 AM ADVERTISING EDITOR) INR 1.0 0.9 - 1.2 04/11/2023 11:42 AM ADVERTISING EDITOR [facility] Blood Venipuncture / Unknown 04/11/2023 11:22 AM ADVERTISING EDITOR 04/11/2023 11:28 AM ADVERTISING EDITOR Ivis Leach MD COAGULATION ORDERABL E Performing Organization Address [facility] de Phone Number [facility] [address] [place] [address] * Magnesium (04/11/2023 11:22 AM ADVERTISING EDITOR) Magnesium 2.4 1.6 - 2.6 mg/dL 04/11/2023 12:02 PM ADVERTISING EDITOR [facility] Blood Venipuncture / Unknown 04/11/2023 11:22 AM ADVERTISING EDITOR 04/11/2023 11:30 AM ADVERTISING EDITOR Ivis Leach MD CHEMISTRY ORDERABLE Performing Organization Address [facility] Phone Number [facility] [address] [place] [address] * (ABNORMAL) Comprehensive Metabolic Panel (04/11/2023 11:22 AM [facility]) Sodium 137 136 - 145 mmol/L 04/11/2023 12:02 PM [facility] Potassium 3.5 3.4 - 5.1 mmol/L 04/11/2023 12:02 PM [facility] Chloride 102 98 - 108 mmol/L 04/11/2023 12:02 PM [facility] Carbon Dioxide 29 20 - 31 mmol/L 04/11/2023 12:02 PM [facility] BUN (Urea Nitro) 20 9 - 23 mg/dL 04/11/2023 12:02 PM [facility] Creatinine 0.74 0.55 - 1.02 mg/dL 04/11/2023 12:02 PM [facility] Est GFR (CKD-EPI) >60.00 >60.00 mL/min/1. 73m2 04/11/2023 12:02 PM [facility] Comment:Calculation based on the Chronic Kidney Disease Epidemiology Collaboration (CKD-EPI) equation refit without adjustment for race. Glucose 90 74 - 106 mg/dL 04/11/2023 12:02 PM [facility] Calcium, Serum 8.6(L) 8.7 - 10.4 mg/dL 04/11/2023 12:02 PM [facility] Anion Gap 6.0 0.0 - 15.0 mmol/L 04/11/2023 12:02 PM [facility] Albumin 3.3(L) 3.4 - 5.0 g/dL 04/11/2023 12:02 PM [facility] Bilirubin-Total 0.4 0.3 - 1.2 mg/dL 04/11/2023 12:02 PM [facility] Alkaline Phosphatase 96 46 - 116 U/L 04/11/2023 12:02 PM [facility] Protein Total 6.7 5.7 - 8.2 g/dL 04/11/2023 12:02 PM [facility] AST (SGOT) <8(L) 13 - 40 U/L 04/11/2023 12:02 PM [facility] ALT 36 7 - 40 U/L 04/11/2023 12:02 PM [facility] Blood Venipuncture / Unknown 04/11/2023 11:22 AM ADVERTISING EDITOR 04/11/2023 11:30 AM ADVERTISING EDITOR Ivis Leach MD CHEMISTRY ORDERABLE Performing Organization Address [facility] de Phone Number [facility] [address] [place] [address] * (ABNORMAL) Lipase (04/11/2023 11:22 AM ADVERTISING EDITOR) Only the most recent of2 resultswithin the time period is included. Lipase 186(H) 12 - 53 U/L 04/11/2023 12:02 PM [facility] Blood Venipuncture / Unknown 04/11/2023 11:22 AM ADVERTISING EDITOR 04/11/2023 11:30 AM ADVERTISING EDITOR Ivis Leach MD CHEMISTRY ORDERABLE Performing Organization Address [facility] de Phone Number [facility] [address] [place] [address] * (ABNORMAL) CBC (Hgb,Hct,WBC,RBC,Platelet) (04/11/2023 11:22 AM ADVERTISING EDITOR) WBC 20.3(H) 4.3 - 10.8 K/uL 04/11/2023 11:50 AM [facility] RBC 3.67(L) 4.20 - 5.40 M/uL 04/11/2023 11:50 AM [facility] Hemoglobin 11.5(L) 12.0 - 16.0 gm/dL 04/11/2023 11:50 AM [facility] Hematocrit 34.0(L) 36.0 - 48.0 % 04/11/2023 11:50 AM [facility] MCV 93 80 - 100 fL 04/11/2023 11:50 AM [facility] MCH 31 27 - 33 pg 04/11/2023 11:50 AM [facility] MCHC 34 33 - 36 gm/dL 04/11/2023 11:50 AM [facility] RDW 13.2 11.5 - 14.5 % 04/11/2023 11:50 AM [facility] Platelet Count 795(H) 150 - 400 K/UL 04/11/2023 11:50 AM [facility] MPV 8.5 6.5 - 12 fL 04/11/2023 11:50 AM [facility] Blood Venipuncture / Unknown 04/11/2023 11:22 AM ADVERTISING EDITOR 04/11/2023 11:30 AM ADVERTISING EDITOR Ivis Leach MD HEMATOLOGY ORDERABLE [facility] [address] [place] [address] * US VENOUS LOW RT (04/10/2023 7:29 PM ADVERTISING EDITOR) Anatomical Region Laterality Modality Extremity Ultrasound 04/10/2023 7:32 PM ADVERTISING EDITOR Impressions 04/10/2023 7:32 PM ADVERTISING EDITOR IMPRESSION: No evidence of deep venous thrombosis in the right leg. Report signed by Bogdan Fox M.D. Narrative 04/10/2023 7:32 PM ADVERTISING EDITOR EXAM: US VENOUS EXTREM LOW RT DATE: [...] XR CHEST AP PORT (04/10/2023 2:05 PM ADVERTISING EDITOR) Anatomical Region Laterality Modality Chest Computed Radiogr aphy 04/10/2023 2:11 PM ADVERTISING EDITOR Impressions 04/10/2023 2:15 PM ADVERTISING EDITOR IMPRESSION: No acute finding in the chest. Clear lungs. REPORT SIGNED BY DR. Florian Sampson Narrative 04/10/2023 2:15 PM ADVERTISING EDITOR EXAM: XR CHEST AP PORT DATE: 04/10/2023 [...] CT Recon L/S Spine (04/10/2023 11:14 AM ADVERTISING EDITOR) Anatomical Region Laterality Modality Spine Computed Tomogra phy 04/10/2023 11:3 5 AM ADVERTISING EDITOR Impressions 04/10/2023 11:52 AM ADVERTISING EDITOR IMPRESSION: 1. ??No adverse interval change since April 06, 2023. 2. ??Multilevel fusion. 3. ??Small foci of gas in the subcutaneous tissues on the comparison exam have resolved. No new definable collection. REPORT SIGNED BY DR. Carmen Duarte Narrative 04/10/2023 11:52 AM ADVERTISING EDITOR EXAM: CT RECONSTRUCTION SPINE LUMBAR DATE: 04/10/2023 10:50 AM CLINICAL DATA: The patient presents from home in [place] via EMS for back and abdominal pain. The patient underwent a spinal fusion on 04/01/22 (9 days ago) and since has had persistent back and diffuse abdominal pain. She was seen in [place] and here at [facility] a few days ago and was told [...] DATA: The patient presents from home in [place] via EMS forback and abdominal pain. The patient underwent a spinal fusion on 04/01/22(9 days ago) and since has had persistent back and diffuse abdominal pain.She was seen in [place] and here at [facility] a few days ago and was told [...] new definable collection. REPORT SIGNED BY DR. Cramen Duarte Nura Medina MD CT ORDERABLE * CT ABDOMEN & PELVIS W/O ORAL W IV CON (04/10/2023 11:12 AM ADVERTISING EDITOR) Anatomical Region Laterality Modality ABD/Pelvis Computed Tomogra phy 04/10/2023 11:2 8 AM ADVERTISING EDITOR Impressions 04/10/2023 11:35 AM ADVERTISING EDITOR IMPRESSION: ?? 1. ??Dilated intrahepatic and extrahepatic bile ducts in the setting of prior cholecystectomy. Correlate with laboratory values to assess for biliary stasis. 2. ??No other acute finding in the abdomen or pelvis. 3. ??Scoliosis. Multilevel fusion, similar to the recent comparison exam. No finding of hardware failure. REPORT SIGNED BY DR. CARMEN DUARTE Narrative 04/10/2023 11:35 AM ADVERTISING EDITOR EXAM: ??CT ABDOMEN & PELVIS W/O ORAL W IV CON DATE: 04/10/2023 10:50 AM CLINICAL DATA: ??The patient presents from home in [place] via EMS for back and abdominal pain. The patient underwent a spinal fusion on 04/01/22 (9 days ago) and since has had persistent back and diffuse abdominal pain. She was seen in [place] and here at [facility] a few days ago and was told [...] DATA: The patient presents from home in [place] via EMS forback and abdominal pain. The patient underwent a spinal fusion on 04/01/22(9 days ago) and since has had persistent back and diffuse abdominal pain.She was seen in [place] and here at [facility] a few days ago and was told [...] Urine Macroscopic (POCT) Dip (04/10/2023 9:53 AM ADVERTISING EDITOR) PH URINE 7.0 4.5 - 8.0 04/10/2023 9:50 AM [facility] SP.GRAVITY, UA 1.015 1.015 - 1.025 04/10/2023 9:50 AM [facility] Glucose, UA Negative Negative mg/dL 04/10/2023 9:50 AM [facility] Ketone, UA Negative Negative mg/dL 04/10/2023 9:50 AM [facility] OCCULT BLOOD, UA Negative Negative, Trace, TRACE-LYSED, TRACE-INTACT 04/10/2023 9:50 AM [facility] Bilirubin, UA Negative Negative 04/10/2023 9:50 AM [facility] UROBILINOGEN, UA 1.0 0.2 - 1.0 EU/dL 04/10/2023 9:50 AM [facility] NITRITE, UA Negative Negative 04/10/2023 9:50 AM [facility] WBC ESTERASE, UA Negative Negative, Trace 04/10/2023 9:50 AM [facility] PROTEIN, UA 30(A) Negative, Trace mg/dL 04/10/2023 9:50 AM [facility] Urine 04/10/2023 9:53 AM ADVERTISING EDITOR 04/10/2023 9:50 AM ADVERTISING EDITOR Nura Medina MD LAB POINT OF CARE TE ST RESULTS Performing Organization Address [facility] de Phone Number [facility] [address] [place] [address] * (ABNORMAL) LFTs (04/10/2023 9:15 AM ADVERTISING EDITOR) ALT 48(H) 7 - 40 U/L 04/10/2023 9:47 AM [facility] Alkaline Phosphatase 101 46 - 116 U/L 04/10/2023 9:47 AM [facility] AST (SGOT) 14 13 - 40 U/L 04/10/2023 9:47 AM [facility] Protein Total 7.0 5.7 - 8.2 g/dL 04/10/2023 9:47 AM [facility] Albumin 3.3(L) 3.4 - 5.0 g/dL 04/10/2023 9:47 AM [facility] Bilirubin-Direct 0.13 <0.40 mg/dL 04/10/2023 9:47 AM [facility] Bilirubin-Total 0.4 0.3 - 1.2 mg/dL 04/10/2023 9:47 AM [facility] Blood 04/10/2023 9:15 AM ADVERTISING EDITOR 04/10/2023 9:20 AM ADVERTISING EDITOR Nura Medina MD CHEMISTRY ORDERABLE Performing Organization Address [facility] Co de Phone Number [facility] [address] [place] [address] * (ABNORMAL) CBC w/diff (04/10/2023 9:15 AM ADVERTISING EDITOR) WBC 18.7(H) 4.3 - 10.8 K/uL 04/10/2023 9:32 AM [facility] RBC 3.76(L) 4.20 - 5.40 M/uL 04/10/2023 9:32 AM [facility] Hemoglobin 11.3(L) 12.0 - 16.0 gm/dL 04/10/2023 9:32 AM [facility] Hematocrit 34.2(L) 36.0 - 48.0 % 04/10/2023 9:32 AM [facility] MCV 91 80 - 100 fL 04/10/2023 9:32 AM [facility] MCH 30 27 - 33 pg 04/10/2023 9:32 AM [facility] MCHC 33 33 - 36 gm/dL 04/10/2023 9:32 AM [facility] RDW 12.9 11.5 - 14.5 % 04/10/2023 9:32 AM [facility] Platelet Count 814(H) 150 - 400 K/UL 04/10/2023 9:32 AM [facility] MPV 8.6 6.5 - 12 fL 04/10/2023 9:32 AM [facility] PMN % 70.9 % 04/10/2023 9:32 AM [facility] IG % 3.8(H) <=1.0 % 04/10/2023 9:32 AM [facility] Comment:Immature granulocyte s often indicate left shift when outside of normal limits. Lymphocyte % 15.5 % 04/10/2023 9:32 AM [facility] Monocyte % 9.1 % 04/10/2023 9:32 AM [facility] Eosinophil % 0.4 % 04/10/2023 9:32 AM [facility] Basophil % 0.3 % 04/10/2023 9:32 AM [facility] PMN Absolute 13.27(H) 1.80 - 7.80 K/uL 04/10/2023 9:32 AM [facility] Lymphocyte Absolute 2.91 1.00 - 4.00 K/uL 04/10/2023 9:32 AM [facility] Monocyte Absolute 1.70(H) 0.00 - 1.00 K/uL 04/10/2023 9:32 AM [facility] Eosinophil Absolute 0.07 0.00 - 0.45 K/uL 04/10/2023 9:32 AM [facility] Basophil Absolute 0.06 0.00 - 0.20 K/uL 04/10/2023 9:32 AM [facility] Nucl RBC % 0.2(H) 0.0 - 0.0 /100 WBC 04/10/2023 9:32 AM [facility] Nucl RBC Absolute 0.03(H) 0.00 - 0.00 K/uL 04/10/2023 9:32 AM [facility] Blood 04/10/2023 9:15 AM ADVERTISING EDITOR 04/10/2023 9:20 AM [facility] Nura Medina MD HEMATOLOGY ORDERABLE [facility] [address] [place] [address] * (ABNORMAL) Basic Metabolic Profile (04/10/2023 9:15 AM [facility]) Sodium 137 136 - 145 mmol/L 04/10/2023 9:47 AM [facility] Potassium 3.8 3.4 - 5.1 mmol/L 04/10/2023 9:47 AM [facility] Chloride 104 98 - 108 mmol/L 04/10/2023 9:47 AM [facility] Carbon Dioxide 26 20 - 31 mmol/L 04/10/2023 9:47 AM [facility] BUN (Urea Nitro) 15 9 - 23 mg/dL 04/10/2023 9:47 AM [facility] Creatinine 0.56 0.55 - 1.02 mg/dL 04/10/2023 9:47 AM [facility] Est GFR (CKD-EPI) >60.00 >60.00 mL/min/1. 73m2 04/10/2023 9:47 AM [facility] Comment:Calculation based on the Chronic Kidney Disease Epidemiology Collaboration (CKD-EPI) equation refit without adjustment for race. Glucose 115(H) 74 - 106 mg/dL 04/10/2023 9:47 AM [facility] Calcium, Serum 8.3(L) 8.7 - 10.4 mg/dL 04/10/2023 9:47 AM ADVERTISING EDITOR [facility] Anion Gap 7.0 0.0 - 15.0 mmol/L 04/10/2023 9:47 AM ADVERTISING EDITOR [facility] Blood 04/10/2023 9:15 AM ADVERTISING EDITOR 04/10/2023 9:20 AM ADVERTISING EDITOR Nura Medina MD CHEMISTRY ORDERABLE [facility] [address] [place] [address] documented in this encounter Visit Diagnoses Diagnosis Intractable pain- Primary Other chronic pain Abdominal pain, unspecified abdominal location documented in this encounter Admitting Diagnoses Diagnosis Intractable pain Other chronic pain documented in this encounter Administered Medications Active Administered Medications - up to 3 most recent administrations Medication Order MAR Action Action Date Dose Rate Site saline FLUSH syringe 10 mL 10 mL, Intravenous, EVERY 8 HOURS, First dose on Fri04/10/23 at 1500, Until Discontinued Given 04/11/2023 1:36 PM ADVERTISING EDITOR 10 mL Given 04/11/2023 6:31 AM ADVERTISING EDITOR 10 mL Given 04/10/2023 10:00 PM ADVERTISING EDITOR 10 mL acetaminophen (TYLENOL) tablet 650 mg 650 mg, oral, EVERY 6 HOURS NEEDED, Starting on Fri04/10/23 at 1453, Until Discontinued, fever, pain, for pain or fever Given 04/11/2023 11:5 9 AM ADVERTISING EDITOR 650 mg Given 04/11/2023 4:07 AM ADVERTISING EDITOR 650 mg Given 04/10/2023 10:38 PM ADVERTISING EDITOR 650 mg amLODIPine (NORVASC) tablet 10 mg 10 mg, oral, DAILY, First dose on Fri04/10/23 at 1800, Until Discontinued, Medication held indefinitely Given 04/10/2023 6:14 PM ADVERTISING EDITOR 10 mg atenolol (TENORMIN) tablet 25 mg 25 mg, oral, DAILY, First dose on Fri04/10/23 at 1800, Until Discontinued, Medication held indefinitely Given 04/10/2023 6:14 PM ADVERTISING EDITOR 25 mg calcium carbonate (TUMS) chewable tablet 500 mg 500 mg (1 tablet), oral, TWICE A DAY WITH BREAKFAST AND DINNER, First dose on Fri04/10/23 at 1800, Until Discontinued Given 04/11/2023 8:17 AM ADVERTISING EDITOR 500 mg Given 04/10/2023 6:14 PM ADVERTISING EDITOR 500 mg dexAMETHasone (DECADRON) tablet 4 mg 4 mg, oral, DAILY, First dose on Fri04/11/23 at 1445, Until Discontinued Given 04/11/2023 3:09 PM ADVERTISING EDITOR 4 mg docusate sodium (COLACE) capsule 100 mg 100 mg, oral, TWICE A DAY, First dose on Fri04/10/23 at 2000, Until Discontinued Given 04/10/2023 8:05 PM ADVERTISING EDITOR 100 mg DULoxetine (CYMBALTA) delayed release capsule 80 mg 80 mg, oral, DAILY, First dose on Fri04/10/23 at 2000, Until Discontinued Given 04/10/2023 8:05 PM ADVERTISING EDITOR 80 mg enoxaparin (LOVENOX) injection 40 mg 40 mg, Subcutaneous, DAILY, First dose on Fri04/10/23 at 1800, Until Discontinued, The minimum weight for this order is 35 kg. For 1 mg/kg dose patients >190 kg, consider using an unfractionated heparin infusion. For 1.5 mg/kg dose patients >125 kg, use enoxaparin 1 mg/kg q12h per dose rounding guidelines. This medication has a Blackbox Warning. Click the formulary reference link for more information. Given 04/11/2023 10:22 AM ADVERTISING EDITOR 40 mg Abdomen: Left Upper Quadrant Given 04/10/2023 6:14 PM ADVERTISING EDITOR 40 mg Ab domen ergocalciferol (vitamin D2) capsule 50,000 Units 50,000 Units, oral, EVERY 7 DAYS, First dose on Fri04/11/23 at 0800, Until Discontinued Given 04/11/2023 10:21 AM ADVERTISING EDITOR 50,000 Units famotidine (PEPCID) tablet 20 mg 20 mg, oral, DAILY, First dose on Fri04/10/23 at 2000, Until Discontinued Given 04/11/2023 8:17 AM ADVERTISING EDITOR 20 mg Given 04/10/2023 8:05 PM ADVERTISING EDITOR 20 mg glycerin (adult) rectal suppository 1 suppository 1 suppository, Rectal, DAILY NEEDED, Starting on Fri04/10/23 at 1740, Until Discontinued, constipation hydrOXYzine pamoate (Vistaril) capsule 25 mg 25 mg, oral, EVERY 6 HOURS NEEDED, Starting on Fri04/10/23 at 1453, Until Discontinued, anxiety, Adjuvant to pain management Given 04/10/2023 5:18 PM ADVERTISING EDITOR 25 mg lactulose (CHRONULAC) (conc: 20 g/30 mL) oral solution 20 g 20 g (30 mL), oral, TWICE A DAY, First dose on Fri04/10/23 at 2000, Until Discontinued Given 04/10/2023 8:05 PM ADVERTISING EDITOR 2 0 g LORazepam (ATIVAN) tablet 1 mg 1 mg, oral, AT BEDTIME NEEDED, Starting on Fri04/10/23 at 1453, Until Discontinued, anxiety Given 04/10/2023 10:38 PM ADVERTISING EDITOR 1 mg methocarbamoL (ROBAXIN) tablet 500 mg 500 mg, oral, EVERY 6 HOURS, First dose on Fri04/10/23 at 2000, Until Discontinued Given 04/11/2023 1:36 PM ADVERTISING EDITOR 500 mg Given 04/11/2023 8:19 AM ADVERTISING EDITOR 500 mg Given 04/11/2023 2:05 AM ADVERTISING EDITOR 500 mg metoprolol tartrate (LOPRESSOR) tablet 12.5 mg 12.5 mg, oral, TWICE A DAY, First dose on Fri04/11/23 at 2000, Until Discontinued ondansetron (ZOFRAN) disintegrating tablet 4-8 mg 4-8 mg, oral, EVERY 8 HOURS NEEDED, Starting on Fri04/10/23 at 1453, Until Discontinued, nausea & vomiting ondansetron (ZOFRAN) injection 4-8 mg 4-8 mg, Intravenous, EVERY 8 HOURS NEEDED, Starting on Fri04/10/23 at 1453, Until Discontinued, nausea & vomiting oxyCODONE (immediate release) (ROXICODONE) tablet 2.5-5 mg 2.5-5 mg, oral, EVERY 6 HOURS NEEDED, Starting on Fri04/10/23 at 1744, Until Discontinued, Pain, when taking PO Given 04/11/2023 4:07 AM ADVERTISING EDITOR 5 mg Given 04/10/2023 10:38 PM ADVERTISING EDITOR 5 mg Given 04/10/2023 6:14 PM ADVERTISING EDITOR 5 mg pantoprazole (Protonix) delayed release tablet 20 mg 20 mg, oral, TWICE A DAY, First dose on Fri04/10/23 at 2000, Until Discontinued Given 04/10/2023 8:05 PM ADVERTISING EDITOR 20 mg polyethylene glycol (MIRALAX) packet 17 g 17 g, oral, TWICE A DAY, First dose on Fri04/10/23 at 2000, Until Discontinued Given 04/10/2023 8:06 PM ADVERTISING EDITOR 17 g prochlorperazine (COMPAZINE) rectal suppository 25 mg 25 mg, Rectal, EVERY 12 HOURS NEEDED, Starting on Fri04/10/23 at 1453, Until Discontinued, nausea & vomiting prochlorperazine (COMPAZINE) tablet 5-10 mg 5-10 mg, oral, EVERY 6 HOURS NEEDED, Starting on Fri04/10/23 at 1453, Until Discontinued, nausea & vomiting sodium phosphates (FLEET) rectal enema 1 enema 1 enema, Rectal, DAILY NEEDED, Starting on Fri04/10/23 at 1740, Until Discontinued, constipation Inactive Administered Medications - up to 3 most recent administrations Medication Order MAR Action Action Date Dose Rate Site saline FLUSH syringe 1-10 mL 1-10 mL, Intravenous, INTRA-PROCEDURE NEEDED, Starting on Fri04/10/23 at 1113, Until Fri04/10/23 at 2312, Line Care, per procedure Given 04/10/2023 11:13 AM ADVERTISING EDITOR 40 mL acetaminophen (TYLENOL) tablet 1,000 mg 1,000 mg, oral, ONCE, 1 dose, On Fri04/10/23 at 1345 Given 04/10/2023 1:55 PM ADVERTISING EDITOR 1,000 mg fentaNYL (SUBLIMAZE) injection 50 mcg 50 mcg, Intravenous, ONCE, 1 dose, On Fri04/10/23 at 1245 Given 04/10/2023 12:55 PM ADVERTISING EDITOR 50 mcg fentaNYL (SUBLIMAZE) injection 50 mcg 50 mcg, Intravenous, ONCE, 1 dose, On Fri04/10/23 at 1345 Given 04/10/2023 1:59 PM ADVERTISING EDITOR 50 mcg iohexol 350 mgI/mL (OMNIPAQUE) 1-150 mL 1-150 mL, Intravenous, INTRA-PROCEDURE ONE TIME DOSE NEEDED, 1 dose, Starting on Fri04/10/23 at 1113, Until Fri04/10/23 at 1113, per procedure Given 04/10/2023 11:13 AM ADVERTISING EDITOR 100 mL oxyCODONE (immediate release) (ROXICODONE) tablet 5 mg 5 mg, oral, ONCE, 1 dose, On Fri04/11/23 at 0700 Given 04/11/2023 7:10 AM ADVERTISING EDITOR 5 mg sodium chloride 0.9 % IV BOLUS 1,000 mL 1,000 mL, Intravenous, ONCE, 1 dose, On Fri04/11/23 at 1245, Administer over 2 Hours Auto Rate Verify 04/11/2023 3:50 PM ADVERTISING EDITOR 250 mL/hr Rate Change 04/11/2023 3:10 PM ADVERTISING EDITOR 250 mL/hr Rate Change 04/11/2023 1:40 PM ADVERTISING EDITOR 200 mL/hr documented in this encounter Active and Recently Administered Medications Times are shown in ADVERTISING EDITOR. Scheduled Medication Order 04/09/2023 04/10/2023 04/11/2023 saline FLUSH syringe 10 mL 10 mL, Intravenous, EVERY 8 HOURS, First dose on Fri04/10/23 at 1500, Until Discontinued 1500 (Due)2200 (Given - Provider: Rachel Mason RN) 0631 (Given - Provider: Robbie Landaverde, RN)1336 (Given - Provider: Kimberly Wan, ANGELES)2200 (Due) acetaminophen (TYLENOL) tablet 1,000 mg (COMPLETED) 1,000 mg, oral, ONCE, 1 dose, On Fri04/10/23 at 1345 1355 (Given - Provider: Josie Giron, ANGELES) amLODIPine (NORVASC) tablet 10 mg 10 mg, oral, DAILY, First dose on Fri04/10/23 at 1800, Until Discontinued, On hold since Fri04/11/2023 at 1240 until manually unheld 1814 (Given - Provider: Janice Arriaza, ANGELES) 0815 (Not Given - Provider: Magalie Ko RN - Reason: Clinically appropriate (comment) - Comment: withheld per parameters)1240 (Held by provider - Provider: Ivis Leach MD - Reason: Clinically appropriate (comment)) atenolol (TENORMIN) tablet 25 mg 25 mg, oral, DAILY, First dose on Fri04/10/23 at 1800, Until Discontinued, On hold since Fri04/11/2023 at 1240 until manually unheld 1813 (Given - Provider: Janice Arriaza RN) 1200 (Not Given - Provider: Magalie Ko RN - Reason: Clinically appropriate (comment) - Comment: withheld per provider order for low BP's)1240 (Held by provider - Provider: Ivis Leach MD - Reason: Clinically appropriate (comment)) calcium carbonate (TUMS) chewable tablet 500 mg 500 mg (1 tablet), oral, TWICE A DAY WITH BREAKFAST AND DINNER, First dose on Fri04/10/23 at 1800, Until Discontinued 1813 (Given - Provider: Janice Arriaza RN) 0817 (Given - Provider: Magalie Ko RN)1700 (Due) dexAMETHasone (DECADRON) tablet 4 mg 4 mg, oral, DAILY, First dose on Fri04/11/23 at 1445, Until Discontinued 1509 (Given - Provid er: Magalie Ko RN) docusate sodium (COLACE) capsule 100 mg 100 mg, oral, TWICE A DAY, First dose on Fri04/10/23 at 2000, Until Discontinued 2004 (Given - Provider: Rachel Mason RN) 0816 (Declined - Provider: Magalie Ko RN - Comment: large loose stool)1999 (Due) DULoxetine (CYMBALTA) delayed release capsule 80 mg 80 mg, oral, DAILY, First dose on Fri04/10/23 at 2000, Until Discontinued 2004 (Given - Provider: Rachel Mason RN) 1999 (Due - Provider: Magalie Ko RN) enoxaparin (LOVENOX) injection 40 mg 40 mg, Subcutaneous, DAILY, First dose on Fri04/10/23 at 1800, Until Discontinued, The minimum weight for this order is 35 kg. For 1 mg/kg dose patients >190 kg, consider using an unfractionated heparin infusion. For 1.5 mg/kg dose patients >125 kg, use enoxaparin 1 mg/kg q12h per dose rounding guidelines. This medication has a Blackbox Warning. Click the formulary reference link for more information. 1813 (Given - Provider: Janice Arriaza RN) 1022 (Given - Provider: Magalie Ko RN) ergocalciferol (vitamin D2) capsule 50,000 Units 50,000 Units, oral, EVERY 7 DAYS, First dose on Fri04/11/23 at 0800, Until Discontinued 1021 (Given - Provid er: Magalie Ko RN) famotidine (PEPCID) tablet 20 mg 20 mg, oral, DAILY, First dose on Khloe 04/10/23 at 1999, Until Discontinued 2004 (Given - Provider: Rachel Mason RN) 0817 (Given - Provider: Magalie Ko RN) fentaNYL (SUBLIMAZE) injection 50 mcg (COMPLETED) 50 mcg, Intravenous, ONCE, 1 dose, On Khloe 04/10/23 at 1245 1255 (Given - Provider: Josie Giron, ANGELES) fentaNYL (SUBLIMAZE) injection 50 mcg (COMPLETED) 50 mcg, Intravenous, ONCE, 1 dose, On Khloe 04/10/23 at 1345 1359 (Given - Provider: Josie Giron RN) lactulose (CHRONULAC) (conc: 20 g/30 mL) oral solution 20 g 20 g (30 mL), oral, TWICE A DAY, First dose on Fri04/10/23 at 1999, Until Discontinued 2004 (Given - Provider: Rachel Mason RN) 0816 (Declined - Provider: Magalie Ko RN)1999 (Due) methocarbamoL (ROBAXIN) tablet 500 mg 500 mg, oral, EVERY 6 HOURS, First dose on Khloe 04/10/23 at 1999, Until Discontinued 2004 (Given - Provider: Rachel Mason RN) 0205 (Given - Provider: Robbie Landaverde RN)0819 (Given - Provider: Magalie Ko RN)1336 (Given - Provider: Kimberly Wan RN)1999 (Due) metoprolol tartrate (LOPRESSOR) tablet 12.5 mg 12.5 mg, oral, TWICE A DAY, First dose on Fri04/11/23 at 1999, Until Discontinued 1999 (Due) oxyCODONE (immediate release) (ROXICODONE) tablet 5 mg (COMPLETED) 5 mg, oral, ONCE, 1 dose, On Fri04/11/23 at 0700 0710 (Given - Provid er: Robbie Landaverde RN) pantoprazole (Protonix) delayed release tablet 20 mg 20 mg, oral, TWICE A DAY, First dose on Khloe 04/10/23 at 2000, Until Discontinued 2004 (Given - Provider: Rachel Mason RN) 0818 (Declined - Provider: Magalie Ko RN)1999 (Due) polyethylene glycol (MIRALAX) packet 17 g 17 g, oral, TWICE A DAY, First dose on Khloe 04/10/23 at 2000, Until Discontinued 2005 (Given - Provider: Rachel Mason RN) 0815 (Declined - Provider: Magalie Ko RN)1999 (Due) sodium chloride 0.9 % IV BOLUS 1,000 mL (COMPLETED) 1,000 mL, Intravenous, ONCE, 1 dose, On Fri04/11/23 at 1245, Administer over 2 Hours 1339 (New Bag - Provider: Kimberly Wan RN)1340 (Rate Change - Provider: Magalie Ko RN)1340 (Rate Change - Provider: Magalie Ko, ANGELES)1510 (Paused - Provider: Magalie oK RN)1510 (Rate Change - Provider: Magalie Ko RN)1550 (Auto Rate Verify - Provider: Magalie Ko RN) PRN Medication Order 04/09/2023 04/10/2023 04/11/2023 saline FLUSH syringe 1-10 mL () 1-10 mL, Intravenous, INTRA-PROCEDURE NEEDED, Starting on Khloe 04/10/23 at 1113, Until Khloe 04/10/23 at 2312, Line Care, per procedure 1113 (Given - Provider: Alex Leahy) saline FLUSH syringe 10 mL 10 mL, Intravenous, NEEDED, Starting on Khloe 04/10/23 at 1453, Until Discontinued, Line Care acetaminophen (TYLENOL) tablet 650 mg 650 mg, oral, EVERY 6 HOURS NEEDED, Starting on Khloe 04/10/23 at 1453, Until Discontinued, fever, pain, for pain or fever 2238 (Given - Provider: Rachel Mason RN) 0407 (Given - Provider: Robbie Landaverde, ANGELES)1159 (Given - Provider: Magalie Ko, ANGELES) alum-mag hydroxide-simethicone (MAALOX PLUS) suspension 15-30 mL 15-30 mL, oral, EVERY 6 HOURS NEEDED, Starting on Khloe 04/10/23 at 1453, Until Discontinued, dyspepsia benzocaine-menthol (CEPACOL) lozenge 1 lozenge 1 lozenge, oral, EVERY 2 HOURS NEEDED, Starting on Khloe 04/10/23 at 1453, Until Discontinued, sore throat glycerin (adult) rectal suppository 1 suppository 1 suppository, Rectal, DAILY NEEDED, Starting on Khloe 04/10/23 at 1740, Until Discontinued, constipation hydrOXYzine pamoate (Vistaril) capsule 25 mg 25 mg, oral, EVERY 6 HOURS NEEDED, Starting on Khloe 04/10/23 at 1453, Until Discontinued, anxiety, Adjuvant to pain management 171 (Given - Provider: Carlton Duncan, ANGELES) iohexol 350 mgI/mL (OMNIPAQUE) 1-150 mL (COMPLETED) 1-150 mL, Intravenous, INTRA-PROCEDURE ONE TIME DOSE NEEDED, 1 dose, Starting on Khloe 04/10/23 at 1113, Until Khloe 04/10/23 at 1113, per procedure 1113 (Given - Provider: Alex Leahy) lidocaine (LMX-4) topical cream 1 Application topical, NEEDED, Starting on Khloe 04/10/23 at 1453, Until Discontinued, IV start or restart if patient prefers a needleless local anesthetic. lidocaine / sod bicarb (buffered lidocaine) syringe for IV starts 0.1-0.3 mL 0.1-0.3 mL, Intradermal, NEEDED, Starting on Khloe 04/10/23 at 1453, Until Discontinued, IV line placement, IV start or restart lidocaine 1% injection (conc: 10 mg/mL) 0.1-0.3 mL 0.1-0.3 mL, Intradermal, NEEDED, Starting on Khloe 04/10/23 at 1453, Until Discontinued, Local Anesthesia, IV start or restart LORazepam (ATIVAN) tablet 1 mg 1 mg, oral, AT BEDTIME NEEDED, Starting on Khloe 04/10/23 at 1453, Until Discontinued, anxiety 2237 (Given - Provider: Rachel Mason RN) lubricant drops ophthalmic (EYE) solution 1-2 drop 1-2 drop, Each Eye, FOUR TIMES A DAY NEEDED, Starting on Khloe 04/10/23 at 1453, Until Discontinued, dry eye(s) ondansetron (ZOFRAN) disintegrating tablet 4-8 mg(Linked Group 1) 4-8 mg, oral, EVERY 8 HOURS NEEDED, Starting on Khloe 04/10/23 at 1453, Until Discontinued, nausea & vomiting ondansetron (ZOFRAN) injection 4-8 mg(Linked Group 1) 4-8 mg, Intravenous, EVERY 8 HOURS NEEDED, Starting on Khloe 04/10/23 at 1453, Until Discontinued, nausea & vomiting oxyCODONE (immediate release) (ROXICODONE) tablet 2.5-5 mg 2.5-5 mg, oral, EVERY 6 HOURS NEEDED, Starting on Fri04/10/23 at 1744, Until Discontinued, Pain, when taking PO 1814 (Given - Provider: Janice Arriaza, ANGELES)2238 (Given - Provider: Rachel Mason, ANGELES) 0407 (Given - Provider: Robbie Landaverde, ANGELES) prochlorperazine (COMPAZINE) rectal suppository 25 mg(Linked Group 2) 25 mg, Rectal, EVERY 12 HOURS NEEDED, Starting on Khloe 04/10/23 at 1453, Until Discontinued, nausea & vomiting prochlorperazine (COMPAZINE) tablet 5-10 mg(Linked Group 2) 5-10 mg, oral, EVERY 6 HOURS NEEDED, Starting on Khloe 04/10/23 at 1453, Until Discontinued, nausea & vomiting Remedy Skin Repair cream topical, THREE TIMES A DAY NEEDED, Starting on Fri04/10/23 at 1453, Until Discontinued, for dry skin senna-docusate (SENNA-S) tablet 1 tablet 1 tablet, oral, TWICE A DAY NEEDED, Starting on Fri04/10/23 at 1453, Until Discontinued, constipation sodium chloride 0.65% (OCEAN) nasal solution 1-2 spray 1-2 spray, Each Nostril, EVERY 2 HOURS NEEDED, Starting on Khloe 04/10/23 at 1453, Until Discontinued, Nasal Dryness sodium phosphates (FLEET) rectal enema 1 enema 1 enema, Rectal, DAILY NEEDED, Starting on Fri04/10/23 at 1740, Until Discontinued, constipation Linked Groups Order Group 1: ondansetron (ZOFRAN) injection 4-8 mgJump to med 4-8 mg, Intravenous, EVERY 8 HOURS NEEDED, Starting on Khloe 04/10/23 at 1453, Until Discontinued, nausea & vomiting Or ondansetron (ZOFRAN) disintegrating tablet 4-8 mgJump to med 4-8 mg, oral, EVERY 8 HOURS NEEDED, Starting on Khloe 04/10/23 at 1453, Until Discontinued, nausea & vomiting Group 2: prochlorperazine (COMPAZINE) tablet 5-10 mgJump to med 5-10 mg, oral, EVERY 6 HOURS NEEDED, Starting on Khloe 04/10/23 at 1453, Until Discontinued, nausea & vomiting Or prochlorperazine (COMPAZINE) rectal suppository 25 mgJump to med 25 mg, Rectal, EVERY 12 HOURS NEEDED, Starting on Khloe 04/10/23 at 1453, Until Discontinued, nausea & vomiting documented in this encounter Care Teams Bi Report Developer Relationship Specialty [place] [id number] [place] [address] PCP - General Internal [facility] [address] [place] [address] PCP - Primary Care Clinic 04/02/23 documented as of this encounter
--- OUTSIDE RECORDS SUMMARY | 2023-04-11 16:00 | XMS_ITS | Encounter Summary ---
Author Name Unknown Organization [facility] Address [address] [place] [address] Care Team Providers Care Computer Programmer Name Role Phone Carolynn Alvarado MD Primary Care Provider [phone] [facility] Reason for Referral * (Routine) - Open Specialty Diagnoses / Procedures Referred By Contac t Referred To Contact Procedures Diet: Level 7 Regular Trevon Buenrostro PA-C [address] [address] Referral ID Status Reason Start Date Expiration Date Visits Re quested Visits Authorized [id number] Open 04/07/2023 1 1 H WEIGHER * (Routine) - Open Specialty Diagnoses / Procedures Referred By Contac t Referred To Contact Procedures Discharge Instructions Trevon Buenrostro PA-C [address] [address] Referral ID Status Reason Start Date Expiration Date Visits Re quested Visits Authorized [id number] Open 04/07/2023 1 1 H WEIGHER * (Routine) - Open Specialty Diagnoses / Procedures Referred By Contac t Referred To Contact Procedures Discharge Instructions Trevon Buenrostro PA-C [address] [address] Referral ID Status Reason Start Date Expiration Date Visits Re quested Visits Authorized [id number] Open 04/07/2023 1 1 H WEIGHER * (Routine) - Open Specialty Diagnoses / Procedures Referred By Contac t Referred To Contact Procedures Discharge Instructions Trevon Buenrostro PA-C [address] [address] Referral ID Status Reason Start Date Expiration Date Visits Re quested Visits Authorized [id number] Open 04/07/2023 1 1 H WEIGHER * (Routine) - Open Specialty Diagnoses / Procedures Referred By Contac t Referred To Contact Procedures Dressing Change Trevon Buenrostro PA-C [address] [address] Referral ID Status Reason Start Date Expiration Date Visits Re quested Visits Authorized [id number] Open 04/07/2023 1 1 H WEIGHER * (Routine) - Open Specialty Diagnoses / Procedures Referred By Contac t Referred To Contact Procedures Dressing Change Trevon Buenrostro PA-C [address] [address] Referral ID Status Reason Start Date Expiration Date Visits Re quested Visits Authorized [id number] Open 04/07/2023 1 1 H WEIGHER * (Routine) - Open Specialty Diagnoses / Procedures Referred By Contac t Referred To Contact Procedures Discharge Instructions Trevon Buenrostro PA-C [address] [address] Referral ID Status Reason Start Date Expiration Date Visits Re quested Visits Authorized [id number] Open 04/07/2023 1 1 H WEIGHER * (Routine) - Open Specialty Diagnoses / Procedures Referred By Contac t Referred To Contact Procedures Discharge Instructions Trevon Buenrostro PA-C [address] [address] Referral ID Status Reason Start Date Expiration Date Visits Re quested Visits Authorized [id number] Open 04/07/2023 1 1 H WEIGHER * (Routine) - Open Specialty Diagnoses / Procedures Referred By Contac t Referred To Contact Procedures Activity as tolerated Trevon Buenrostro PA-C [address] [address] Referral ID Status Reason Start Date Expiration Date Visits Re quested Visits Authorized [id number] Open 04/07/2023 1 1 H WEIGHER * (Routine) - Open Specialty Diagnoses / Procedures Referred By Contac t Referred To Contact Trevon Buenrostro PA-C [address] [address] Surgery), [facility] (Specialists In [address]ont [address] [place] [address] Referral ID Status Reason Start Date Expiration Date Visits Re quested Visits Authorized [id number] Open 04/07/2023 1 1 Question Answer Instructions to follow-up provider f/u appt Comments Return to clinic in 3 weeks for post op visit H WEIGHER * (Routine) - Open Specialty Diagnoses / Procedures Referred By Contac t Referred To Contact Procedures Temperature >101 (38.3 degrees Celsius) Trevon Buenrostro PA-C [address] [address] Referral ID Status Reason Start Date Expiration Date Visits Re quested Visits Authorized [id number] Open 04/07/2023 1 1 H WEIGHER * (Routine) - Open Specialty Diagnoses / Procedures Referred By Contac t Referred To Contact Procedures Severe uncontrolled pain Trevon Buenrostro PA-C [address] [address] Referral ID Status Reason Start Date Expiration Date Visits Re quested Visits Authorized [id number] Open 04/07/2023 1 1 H WEIGHER * (Routine) - Open Specialty Diagnoses / Procedures Referred By Contac t Referred To Contact Procedures Persistent nausea or vomiting Trevon Buenrostro PA-C [address] [address] Referral ID Status Reason Start Date Expiration Date Visits Re quested Visits Authorized [id number] Open 04/07/2023 1 1 H WEIGHER * (Routine) - Open Specialty Diagnoses / Procedures Referred By Contac t Referred To Contact Procedures Inability to eat, drink, or take medication Trevon Buenrostro PA-C [address] [address] Referral ID Status Reason Start Date Expiration Date Visits Re quested Visits Authorized [id number] Open 04/07/2023 1 1 H WEIGHER * (Routine) - Open Specialty Diagnoses / Procedures Referred By Contac t Referred To Contact Procedures Difficulty breating, headache, or visual disturbance Trevon Buenrostro PA-C [address] [address] Referral ID Status Reason Start Date Expiration Date Visits Re quested Visits Authorized [id number] Open 04/07/2023 1 1 H WEIGHER * (Routine) - Open Specialty Diagnoses / Procedures Referred By Contac t Referred To Contact Procedures Any questions or concerns Trevon Buenrostro PA-C [address] [place] [address] Referral ID Status Reason Start Date Expiration Date Visits Re quested Visits Authorized [id number] Open 04/07/2023 1 1 H WEIGHER Reason for Visit * Inpatient Admission (Routine) Specialty Diagnoses / Procedures Referred By Cecille concepcion Referred To Contact Diagnoses Acute pain of left lower extremity post op pain Referral ID Status Reason Start Date Expiration Date Visits Re quested Visits Authorized [id number] 1 1 Encounter Details Date Type Department Care Team (Latest Contact Info) Description 04/05/2023 5:15 PM CLOTH WEIGHER - 04/07/2023 2:20 PM CLOTH WEIGHER Hospital Encounter A[address] [place] [id number] [place] [address] [place] [phone] [place] [address] [place] [id number] -Hospitalist [address] [place] [id number] Acute pain of left lower extremity Discharge Disposition: Returning Home/Self Care Social History Tobacco Use Types Packs/Day Years Used Date Smoking Tobacco: Never Smokeless Tobacco: Never Alcohol Use Standard Drinks/Week Comments Never 0 (1 standard drink = 0.6 oz pur e alcohol) [facility] Utilities Answer Date Recorded In the past 12 months has [employer], gas, oil, or water [email or web address] threatened to shut off services in your [...] slept in a snf (including now)? No 04/05/2023 Sex and Gender Information Value Date Recorded Sex Assigned at Female 03/11/2023 11:10 AM CLOTH WEIGHER Gender Identity Female 03/11/2023 11:10 AM CLOTH WEIGHER Sexual Orientation Straight 03/11/2023 11 :10 AM CLOTH WEIGHER documented as of this encounter Last Filed Vital Signs Vital Sign Reading Time Taken Comments Blood Pressure 108/69 04/07/2023 2:09 PM CLOTH WEIGHER Pulse 67 04/07/2023 2:09 PM CLOTH WEIGHER Temperature 36.4 ??C (97.5 ??F) 04/07/2023 12:[address] Respiratory Rate 16 04/07/2023 12:54 PM CLOTH WEIGHER Oxygen Saturation 100% 04/07/2023 12:54 PM CLOTH WEIGHER Inhaled Oxygen Concentration - - Weight 61.2 kg (135 lb) 04/05/2023 5:45 PM CLOTH WEIGHER Height 162.6 cm (5' 4) 04/05/2023 5:45 PM CLOTH WEIGHER Body Mass Index 23.17 04/05/2023 5:45 PM CLOTH WEIGHER documented in this encounter Discharge Summaries * Yanira Keys MD - 04/07/2023 12:54 PM CST Images from the original note were not included. [facility] SUMMARY Patient Name: Michelle Franz Date of : 1945 Attending Provider: Ynaira Keys MD Admission Date: 04/05/2023 Discharge Date: 04/07/2023 She will be discharged on 04/07/2023 to home. DISCHARGE DIAGNOSES: Acute post operative pain improving Left lower extremity pain improving S/p lumbar fusion Leukocytosis possible reactive Transaminates improving Constipation HOSPITAL COURSE: Pt is 77 y.o female with pmhx of afib not anticoagulation, HTN, HLD, Depression, insomnia, chronic back pain, recent lumbar spinal fusion on 04/01/23 . Presented to the ED with left leg pain. CT Lumbar spine no acute changes. 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 CT spine no acute changes. Neurosurgeon recommended continue trail of steroids and bowel regimen. Doesn't think that xray pelvic finding is attributing her pain. Leukocytosis possible reactive. Elevated LFT's and elevated CK total improving. Constipation on bowel regimen; Left lower extremity improving, no focal neurology deficit or weakness. Pt is medically stable will be discharged home in stable condition, resume home medications, followup pcp and neurosurgeon. DISCHARGE EXAM: GENERAL APPEARANCE: She is awake, alert and in no acute distress. HEENT: Head - Normocephalic, atraumatic. Eyes - Normal lids and conjuntivae, PERRLA, EOMs intact. Nose - No deformity. Moist mucous membranes. NECK: Supple RESPIRATORY: Good air entry, no wheezes, rhonchi, rales, work of breathing CARDIOVASCULAR: Normal S1, normal S2, regular rate no murmur. GASTROINTESTINAL: Soft, non-tender, normal bowel sounds, non-distended, non rebound SKIN: Intact, warm, dry. no rashes NEUROLOGIC: Alert and oriented X 3, moves all extremities equally. Non-focal exam, power 5/5 in UE,sensation grossly intact EXTREMITIES: Distal Pulses are palpable, no edema. LABS Recent Labs 04/05/23 19004/07/23 0701 WBC 12.6* 15.2* RBC 3.05* 2.90* HEMOGLOBIN 9.6* 8.8* HEMATOCRIT 28.7* 26.9* MCV 94 93 MCH 32 30 RDW 13.1 13.0 PLATELETCT 483* 468* No Lab Results Found (last 72 hours) Recent Labs 04/05/23 19004/07/23 0701 SODIUM 138 136 POTASSIUM 4.3 4.2 CHLORIDE 104 103 CARBONDIOXI 27 27 ANIONGAP 7.0 6.0 GLUCOSE 130* 147* BUNUREANRO 10 20 CREATININE 0.51* 0.66 CALCIUMSERUM 8.4* 8.2* ESTGFRMDRD >60.00 >60.00 ABG: No Lab Results Found (last 72 hours) VBG: No Lab Results Found (last 72 hours) Invalid input(s): O2SV Micro: No results found for this visit on 04/05/23. Surgical/Procedure Site Lower;Middle Back (Active) Incision Date: 03/31/23 Orientation: Lower;Middle Location: Back IMAGING CT Spine Lumbar w/o Contrast Result Date: 04/06/2023 EXAM: CT SPINE LUMBAR W/O CON DATE: 04/06/2023 11:47 AM CLINICAL INFORMATION: 77 years old Female presents for pain. Status post L1-5 posterior spinal fusion. TECHNICAL INFORMATION: Helical axial CT images of the lumbar spine were obtained from the T12 vertebral body to S1 without intravenous contrast. Multiplanar soft tissue and bone algorithm reconstruction of the images was performed and evaluat ed. Subtle interspace detail may not be detected without the administration of intrathecal contrastor MRI. COMPARISON: Pelvic and hip radiographs 04/06/2023 and lumbar spine radiographs 04/02/2023. INTERPRETATION: OSSEOUS STRUCTURES: 5 nonrib-bearing lumbar-type vertebral bodies. 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 There is only 6 [...] related to adjacent hardware. No intrathecal gas. SOFTTISSUES: Subcutaneous recent postoperative gas and edema. Paraspinal fluid density and few tiny foci of gas present is favored postoperative. There is mild edema adjacent to the iliopsoas musculaturewith small foci of gas along the right psoas muscle, also likely postoperative. Atheromatous calcification of the lower thoracic and abdominal aorta without abdominal aortic aneurysm. Remainder of the visualized paravertebral soft tissues are unremarkable IMPRESSION: 1. Operative changes of posterior rei and pedicle screw fixation L1- L5 with posterolateral bone grafting. Intact hardware without [...] scoliosis. REPORT SIGNED BY Janice Talavera M.D. XR PELVIS & HIP LATERAL BILAT Result Date: 04/06/2023 EXAM: XR PELVIS & HIP LATERAL [...] No avascular necrosis. Nonspecific bowel gas pattern IMPRESSION: 1. 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 No discrete acute bony pelvic or proximal femoral fracture visualized. REPORT SIGNED BY Janice Talavera M.D. XR SPINE LUMBAR ROUTINE Result Date: 04/02/2023 EXAM: XR SPINE LUMBAR ROUTINE DATE: 04/02/2023 10:31 AM CLINICAL DATA: Patient age: [age] years old. L1-L5 posterior spinal fusion. COMPARISON: No prior comparisons. TECHNICAL INFORMATION: Routine Views:AP, lateral and coned lateral L5-S1 views. INTERPRETATION: Levocurvature of the lumbar spine with apex at L1. Operative changes of posterior rei and pedicle screw fixation L1-L5. Hardware appears [...] rami and right inferior pubic ramus. Nonspecific bowelgas pattern. IMPRESSION: 1. Operative changes of posterior rei and pedicle screw fixation L1- L5 with posterolateral bone graft material, grossly negative for postoperative purposes. Lumbar vertebral body alignment described in more detail above. 2. Old superior and inferior pubic rami fractures. REPORT SIGNED BY Janice Talavera M.D. XR C-ARM SPINE Result Date: 04/01/2023 EXAM: XR C-ARM SPINE DATE: 04/01/2023 10:35 AM CLINICAL DATA: ADDITIONAL CLINICAL DATA: COMPARISON: None. NUMBER OF VIEWS: 13 FINDINGS: Approximately 28 seconds fluoroscopy. Images demonstrate steps in the placement of multilevel bilateral pedicle screws and interlocking rods. IMPRESSION: 1. Procedural assistance. REPORT SIGNED BY DR. MARCUS SILVER DISCHARGE MEDICATIONS: Current Discharge Medication List NEW MEDICATIONS Details dexAMETHasone (DECADRON) 4 mg oral tablet Take 1 tablet (4 mg) by mouth every 8 (eight) hours. After 2 days, take 1 tablet every 12 hours. Then, after 2 more days, take 1 tablet per day. Continue 1 tablet per day for 2 additional days Qty: 12 tablet, Refills: 0 docusate sodium (COLACE) 100 mg oral capsule Take 1 capsule (100 mg) by mouth twice a day. Qty: 30 capsule, Refills: 0 polyethylene glycol (MIRALAX) 17 gram oral packet Take 17 g by mouth twice a day. Mix each dose in 4-8 ounces of liquid as directed. Qty: 30 packet, Refills: 0 MEDICATIONS CONTINUED UNCHANGED Details amLODIPine (NORVASC) 10 mg oral tablet Take 1 tablet (10 mg) by mouth Daily. atenolol (TENORMIN) 25 mg oral tablet Take 1 tablet (25 mg) by mouth once daily. calcium carbonate (TUMS) 200 mg calcium (500 mg) oral chew tab Chew 1 tablet (500 mg) twice a day with breakfast and dinner. Qty: 180 tablet, Refills: 3 Associated Diagnoses: S/P lumbar fusion desipramine (NORPRAMIN) 25 mg oral tablet Take 1 tablet (25 mg) by mouth Daily. !! DULoxetine (CYMBALTA) 20 mg oral delayed release capsule 1 capsule (20 mg) once daily. !! DULoxetine (CYMBALTA) 60 mg oral delayed release capsule Take 1 capsule (60 mg) by mouth once daily. ergocalciferol (VITAMIN D2) 1,250 mcg (50,000 unit) oral capsule Take 1 capsule (50,000 Units) by mouth every 7 (seven) days. Qty: 12 capsule, Refills: 3 Associated Diagnoses: S/P lumbar fusion famotidine (PEPCID) 20 mg oral tablet Take 1 tablet (20 mg) by mouth once daily. hydrOXYzine pamoate (VISTARIL) 25 mg oral capsule Take 1 capsule (25 mg) by mouth every 6 (six) hours as needed. Qty: 12 capsule, Refills: 0 LORazepam (ATIVAN) 0.5 mg oral tablet Take 2 tablets (1 mg) by mouth at bedtime as needed. medical supply, miscellaneous (ELECTRICAL BONE GROWTH STIMULATOR) Company: [employer] - for home use. Qty: 1 each Associated Diagnoses: S/P lumbar fusion oxyCODONE, immediate release, (ROXICODONE) 5 mg oral tablet Take 1-2 tablets (5- 10 mg) by mouth every 6 (six) hours as needed. Qty: 35 tablet, Refills: 0 pregabalin (LYRICA) 25 mg oral capsule Take 2 capsules (50 mg) by mouth twice a day. senna-docusate (SENNA-S) 8.6-50 mg oral tablet Take 1 tablet by mouth twice a day as needed. Qty: 60 tablet, Refills: 0 tiZANidine (ZANAFLEX) 2 mg oral tablet Take 2 tablets (4 mg) by mouth four times a day. Qty: 20 tablet, Refills: 0 !! - Potential duplicate medications found. Please discuss with provider. FOLLOWUP: Contact information for follow-up [facility] Specialty: Neurosurgery, Orthopedic Surgery [address] [place] [address] [facility] [id number] Instructions to follow-up provider: f/u appt Return to clinic in 3 weeks for post op visit Discharge Procedure Orders Any questions or concerns Difficulty breating, headache, or visual disturbance Inability to eat, drink, or take medication Persistent nausea or vomiting Severe uncontrolled pain Temperature >101 (38.3 degrees Celsius) Activity as tolerated Do not lift anything greater than 5-10 pounds (a gallon of milk or water). No bending, twisting, pushing or pulling for the first 3-4 weeks. Keep active but avoid strenuous activity. You may climb stairs when you feel able. Walking is good exercise. Avoid amusement park rides and body contact sports until your doctor gives the okay. You may resume sexual activity when you feel comfortable. Discharge Instructions You may move about in bed and rest in any comfortable position. You may want to use pillows to support your back and knees. While lying on your side, place a pillow between your knees and under your head and neck. When changing your position in bed, brace your abdominal muscles and log roll onto your side. Change your position, sitting, standing or lying, frequently when there is discomfort. Discharge Instructions DRIVING: No driving until seen by your physician. DO NOT drive after taking pain medications or muscle relaxing medication. Dressing Change Steri-Strips: If you have Steri-Strips on your incision(s), they will eventually fall off with washing. If the strips are not off by day fourteen (14) you may remove the strips. Dressing Change Remove dressings after 48 hours. Reapply a new dressing if there is drainage. There may be a small amount of drainage for the first few days after surgery. Notify doctor if there is increased drainage, redness or swelling. Discharge Instructions DIET and BOWEL PROGRAM: Maintain a well balanced diet in order to aid healing. Drink plenty of water. It is important to keep your bowel functioning regularly. Sometimes medications such as stool softeners or suppositories may be needed to help re-establish your bowel program. You may take cyez-zce-qlrsxwi stool medications as directed by the package insert. Discharge Instructions You may use ice packs 3-4 times daily as needed for 20-30 minutes each time. Discharge Instructions PAIN: It is normal to have some pain after surgery, especially around the incision(s). The pain, burning and/or numbness usually do not go away immediately after surgery. You may experience an increase in these symptoms due to inflammation and nerve sensitivity from the previously compressed nerve.It should slowly lessen as the nerve heals. You should gradually use less pain medication while youare recovering at home. This can be accomplished by increasing the time between taking the medication, then by reducing the number of pills you take each time. You may supplement your pain medicationwith acetaminophen (Tylenol). DO NOT use ibuprofen, Advil or Aleve because that is known to slow down the healing process at the surgical site. Diet: Level 7 Regular Liquid: Level 0: Thin Liquids Follow Up Referral Priority: Routine Referral Location: [facility] (an affiliate of [facility]) Referred to Provider: [facility] (SPECIAL[facility] IN GENERAL SURGERY) Number of Visits Requested: 1 Total time spent on the day of discharge was Time: over 30 minutes including discharge planning, discussion with the patient, case management, RN, chart reviewing, and completing the discharge summary. Yanira Keys MD [facility] H WEIGHER * Trevon Buenrostro, ZAHEER-Deonna - 04/07/2023 12:30 PM CST HOSPITAL DISCHARGE SUMMARY Patient Name: Michelle Franz Date of : 1945 Age: 77 y.o. Primary Physician: Carolynn Alvarado MD Admission Date: 04/05/2023 Discharge Date: 04/07/2023 She will be discharged on 04/07/2023 to home PRINCIPAL DISCHARGE DIAGNOSIS: * No surgery found * Principal Problem: Acute pain of left lower extremity PROCEDURES PERFORMED DURING HOSPITALIZATION: * No surgery found * BRIEF HOSPITAL COURSE: This 77 y.o. female was readmitted for pain after elective spine surgery. The patient underwent the above procedure without complications. Standard prophylactic antibiotics were administered and the patient received DVT prophylaxis per service protocol. The patient's pain was initially controlled on intravenous pain medications and then weaned to oral medications prior to discharge. The patients pain was well controlled and the patient had met all physical therapy goals prior to discharge. Patient was discharged on a Regular diet and opioid medications for pain control.Discharge in stable condition. She will follow up in approximately 2-4 weeks. PERTINENT FINDINGS/RESULTS AT DISCHARGE: BP 134/82 Pulse 77 Temp 97.4 ??F (36.3 ??C) Resp 20 Ht 5' 4 (1.626 m) Wt 61.2 kg (135 lb) SpO2 98% BMI 23.17 kg/m?? Surgical/Procedure Site Lower;Middle Back (Active) Incision Date: 03/31/23 Orientation: Lower;Middle Location: Back Latest Laboratory Results: Admission on 04/05/2023 Component Date Value Ref Range Status WBC 04/05/2023 12.6 (H) 4.3 - 10.8 K/uL Final RBC 04/05/2023 3.05 (L) 4.20 - 5.40 M/uL Final Hemoglobin 04/05/2023 9.6 (L) 12.0 - 16.0 gm/dL Final Hematocrit 04/05/2023 28.7 (L) 36.0 - 48.0 % Final MCV 04/05/2023 94 80 - 100 fL Final MCH 04/05/2023 32 27 - 33 pg Final MCHC 04/05/2023 33 33 - 36 gm/dL Final RDW 04/05/2023 13.1 11.5 - 14.5 % Final Platelet Count 04/05/2023 483 (H) 150 - 400 K/UL Final MPV 04/05/2023 9.3 6.5 - 12 fL Final Sodium 04/05/2023 138 136 - 145 mmol/L Final Potassium 04/05/2023 4.3 3.4 - 5.1 mmol/L Final Chloride 04/05/2023 104 98 - 108 mmol/L Final Carbon Dioxide 04/05/2023 27 20 - 31 mmol/L Final BUN (Urea Nitro) 04/05/2023 10 9 - 23 mg/dL Final Creatinine 04/05/2023 0.51 (L) 0.55 - 1.02 mg/dL Final Est GFR (CKD-EPI) 04/05/2023 >60.00 >60.00 mL/min/1.73m2 Final Glucose 04/05/2023 130 (H) 74 - 106 mg/dL Final Calcium, Serum 04/05/2023 8.4 (L) 8.7 - 10.4 mg/dL Final Anion Gap 04/05/2023 7.0 0.0 - 15.0 mmol/L Final Albumin 04/05/2023 3.0 (L) 3.4 - 5.0 g/dL Final Bilirubin-Total 04/05/2023 0.6 0.3 - 1.2 mg/dL Final Alkaline Phosphatase 04/05/2023 145 (H) 46 - 116 U/L Final Protein Total 04/05/2023 6.9 5.7 - 8.2 g/dL Final AST (SGOT) 04/05/2023 44 (H) 13 - 40 U/L Final ALT 04/05/2023 135 (H) 7 - 40 U/L Final Sodium 04/07/2023 136 136 - 145 mmol/L Final Potassium 04/07/2023 4.2 3.4 - 5.1 mmol/L Final Chloride 04/07/2023 103 98 - 108 mmol/L Final Carbon Dioxide 04/07/2023 27 20 - 31 mmol/L Final BUN (Urea Nitro) 04/07/2023 20 9 - 23 mg/dL Final Creatinine 04/07/2023 0.66 0.55 - 1.02 mg/dL Final Est GFR (CKD-EPI) 04/07/2023 >60.00 >60.00 mL/min/1.73m2 Final Glucose 04/07/2023 147 (H) 74 - 106 mg/dL Final Calcium, Serum 04/07/2023 8.2 (L) 8.7 - 10.4 mg/dL Final Anion Gap 04/07/2023 6.0 0.0 - 15.0 mmol/L Final Albumin 04/07/2023 2.8 (L) 3.4 - 5.0 g/dL Final Bilirubin-Total 04/07/2023 0.3 0.3 - 1.2 mg/dL Final Alkaline Phosphatase 04/07/2023 107 46 - 116 U/L Final Protein Total 04/07/2023 6.3 5.7 - 8.2 g/dL Final AST (SGOT) 04/07/2023 22 13 - 40 U/L Final ALT 04/07/2023 87 (H) 7 - 40 U/L Final WBC 04/07/2023 15.2 (H) 4.3 - 10.8 K/uL Final RBC 04/07/2023 2.90 (L) 4.20 - 5.40 M/uL Final Hemoglobin 04/07/2023 8.8 (L) 12.0 - 16.0 gm/dL Final Hematocrit 04/07/2023 26.9 (L) 36.0 - 48.0 % Final MCV 04/07/2023 93 80 - 100 fL Final MCH 04/07/2023 30 27 - 33 pg Final MCHC 04/07/2023 33 33 - 36 gm/dL Final RDW 04/07/2023 13.0 11.5 - 14.5 % Final Platelet Count 04/07/2023 468 (H) 150 - 400 K/UL Final MPV 04/07/2023 10.2 6.5 - 12 fL Final PMN % 04/07/2023 80.8 % Final IG % 04/07/2023 2.0 (H) <=1.0 % Final Lymphocyte % 04/07/2023 11.8 % Final Monocyte % 04/07/2023 5.0 % Final Eosinophil % 04/07/2023 0.2 % Final Basophil % 04/07/2023 0.2 % Final PMN Absolute 04/07/2023 12.32 (H) 1.80 - 7.80 K/uL Final Lymphocyte Absolute 04/07/2023 1.80 1.00 - 4.00 K/uL Final Monocyte Absolute 04/07/2023 0.76 0.00 - 1.00 K/uL Final Eosinophil Absolute 04/07/2023 0.03 0.00 - 0.45 K/uL Final Basophil Absolute 04/07/2023 0.03 0.00 - 0.20 K/uL Final Nucl RBC % 04/07/2023 0.0 0.0 - 0.0 /100 WBC Final Nucl RBC Absolute 04/07/2023 0.00 0.00 - 0.00 K/uL Final CK TOTAL 04/05/2023 512 (H) 34 - 192 U/L Final HBA1C (GLYCOSOLATED HGB) 04/05/2023 5.1 <5.7 % Final EAG (EST. AVERAGE GLUCOSE) 04/05/2023 100 <117 mg/dL Final CK TOTAL 04/07/2023 174 34 - 192 U/L Final Admission on 04/01/2023, Discharged on 04/03/2023 Component Date Value Ref Range Status INR 04/01/2023 1.0 0.9 - 1.2 Final PTT 04/01/2023 28.8 24.0 - 31.0 SEC. Final Group and Rh 04/01/2023 O Positive Final Antibody Screen 04/01/2023 Negative Final Hemoglobin 04/01/2023 12.4 12.0 - 16.0 gm/dL Final Hematocrit 04/01/2023 37.3 36.0 - 48.0 % Final GLUCOSE WB METER 04/01/2023 105 (H) 60 - 100 mg/dL Final Group and Rh 04/01/2023 O Positive Final Hemoglobin 04/02/2023 9.0 (L) 12.0 - 16.0 gm/dL Final Hemoglobin 04/03/2023 8.5 (L) 12.0 - 16.0 gm/dL Final Hemoglobin 04/02/2023 8.3 (L) 12.0 - 16.0 gm/dL Final Recent Labs 04/07/23 0701 WBC 15.2* RBC 2.90* HEMOGLOBIN 8.8* HEMATOCRIT 26.9* MCV 93 MCH 30 RDW 13.0 PLATELETCT 468* IMPORTANT PENDING TEST RESULTS: None CONDITION AT DISCHARGE: Stabilized DISCHARGE MEDICATIONS: Current Discharge Medication List NEW MEDICATIONS Details dexAMETHasone (DECADRON) 4 mg oral tablet Take 1 tablet (4 mg) by mouth every 8 (eight) hours. After 2 days, take 1 tablet every 12 hours. Then, after 2 more days, take 1 tablet per day. Continue 1 tablet per day for 2 additional days Qty: 12 tablet, Refills: 0 MEDICATIONS CONTINUED UNCHANGED Details medical supply, miscellaneous (ELECTRICAL BONE GROWTH STIMULATOR) Company: [employer] for home use. Qty: 1 each Associated Diagnoses: S/P lumbar fusion UNREVIEWED MEDICATIONS Details amLODIPine (NORVASC) 10 mg oral tablet Take 1 tablet (10 mg) by mouth Daily. atenolol (TENORMIN) 25 mg oral tablet Take 1 tablet (25 mg) by mouth once daily. calcium carbonate (TUMS) 200 mg calcium (500 mg) oral chew tab Chew 1 tablet (500 mg) twice a day with breakfast and dinner. Qty: 180 tablet, Refills: 3 Associated Diagnoses: S/P lumbar fusion desipramine (NORPRAMIN) 25 mg oral tablet Take 1 tablet (25 mg) by mouth Daily. DULoxetine (CYMBALTA) 20 mg oral delayed release capsule 1 capsule (20 mg) once daily. DULoxetine (CYMBALTA) 60 mg oral delayed release capsule Take 1 capsule (60 mg) by mouth once daily. ergocalciferol (VITAMIN D2) 1,250 mcg (50,000 unit) oral capsule Take 1 capsule (50,000 Units) by mouth every 7 (seven) days. Qty: 12 capsule, Refills: 3 Associated Diagnoses: S/P lumbar fusion famotidine (PEPCID) 20 mg oral tablet Take 1 tablet (20 mg) by mouth once daily. hydrOXYzine pamoate (VISTARIL) 25 mg oral capsule Take 1 capsule (25 mg) by mouth every 6 (six) hours as needed. Qty: 12 capsule, Refills: 0 LORazepam (ATIVAN) 0.5 mg oral tablet Take 2 tablets (1 mg) by mouth at bedtime as needed. oxyCODONE, immediate release, (ROXICODONE) 5 mg oral tablet Take 1-2 tablets (5- 10 mg) by mouth every 6 (six) hours as needed. Qty: 35 tablet, Refills: 0 pregabalin (LYRICA) 25 mg oral capsule Take 2 capsules (50 mg) by mouth twice a day. senna-docusate (SENNA-S) 8.6-50 mg oral tablet Take 1 tablet by mouth twice a day as needed. Qty: 60 tablet, Refills: 0 tiZANidine (ZANAFLEX) 2 mg oral tablet Take 2 tablets (4 mg) by mouth four times a day. Qty: 20 tablet, Refills: 0 DISCHARGE ORDERS: Discharge Procedure Orders Any questions or concerns Difficulty breating, headache, or visual disturbance Inability to eat, drink, or take medication Persistent nausea or vomiting Severe uncontrolled pain Temperature >101 (38.3 degrees Celsius) Activity as tolerated Do not lift anything greater than 5-10 pounds (a gallon of milk or water). No bending, twisting, pushing or pulling for the first 3-4 weeks. Keep active but avoid strenuous activity. You may climb stairs when you feel able. Walking is good exercise. Avoid amusement park rides and body contact sports until your doctor gives the okay. You may resume sexual activity when you feel comfortable. Discharge Instructions You may move about in bed and rest in any comfortable position. You may want to use pillows to support your back and knees. While lying on your side, place a pillow between your knees and under your head and neck. When changing your position in bed, brace your abdominal muscles and log roll onto your side. Change your position, sitting, standing or lying, frequently when there is discomfort. Discharge Instructions DRIVING: No driving until seen by your physician. DO NOT drive after taking pain medications or muscle relaxing medication. Dressing Change Steri-Strips: If you have Steri-Strips on your incision(s), they will eventually fall off with washing. If the strips are not off by day fourteen (14) you may remove the strips. Dressing Change Remove dressings after 48 hours. Reapply a new dressing if there is drainage. There may be a small amount of drainage for the first few days after surgery. Notify doctor if there is increased drainage, redness or swelling. Discharge Instructions DIET and BOWEL PROGRAM: Maintain a well balanced diet in order to aid healing. Drink plenty of water. It is important to keep your bowel functioning regularly. Sometimes medications such as stool softeners or suppositories may be needed to help re-establish your bowel program. You may take [id number] stool medications as directed by the package insert. Discharge Instructions You may use ice packs 3-4 times daily as needed for 20-30 minutes each time. Discharge Instructions PAIN: It is normal to have some pain after surgery, especially around the incision(s). The pain, burning and/or numbness usually do not go away immediately after surgery. You may experience an increase in these symptoms due to inflammation and nerve sensitivity from the previously compressed nerve.It should slowly lessen as the nerve heals. You should gradually use less pain medication while youare recovering at home. This can be accomplished by increasing the time between taking the medication, then by reducing the number of pills you take each time. You may supplement your pain medicationwith acetaminophen (Tylenol). DO NOT use ibuprofen, Advil or Aleve because that is known to slow down the healing process at the surgical site. Diet: Level 7 Regular Liquid: Level 0: Thin Liquids Follow Up Referral Priority: Routine Referral Location: [facility] (an affiliate of [facility]) Referred to Provider: [facility] (SPECIALISTS IN GENERAL SURGERY) Number of Visits Requested: 1 FOLLOW-UP: She should see [facility] for first recheck in 2-4 weeks. Call for appointment if one not already in place. [phone] Option 1 Care Questions [facility] [place] Office: [phone] Total time spent for discharge on date of discharge: 20 minutes. Trevon Buenrostro PA-C [facility] [place] [facility]ine Hospitalist H WEIGHER documented in this encounter Medications at Time [...] tablet (25 mg) by mouth Daily. 0 dexAMETHasone (DECADRON) 4 mg oral tablet Take 1 tablet (4 mg) by mouth every 8 (eight) hours. After 2 days, take 1 tablet every 12 hours. Then, after 2 more days, take 1 tablet per day. Continue 1 tablet per day for 2 additional days 12 tablet 0 04/07/2023 docusate sodium (COLACE) 100 mg oral capsule Take 1 capsule (100 mg) by mouth twice a day. 30 capsule 0 04/07/2023 DULoxetine (CYMBALTA) 20 mg oral delayed release [...] BONE GROWTH STIMULATOR)Indications: S/P lumbar fusion Company: [employer] - for home use. 1 each 0 02/25/2023 oxyCODONE, immediate release, (ROXICODONE) 5 mg oral tablet Take 1-2 tablets (5-10 mg) by mouth every 6 (six) hours as needed. 35 tablet 0 04/03/2023 polyethylene glycol (MIRALAX) 17 gram oral powder Take 17 g by mouth twice a day. Mix each dose in 4-8 ounces of liquid as directed. 510 g 0 04/07/2023 pregabalin (LYRICA) 25 mg oral capsule Take 1 capsule (25 mg) by mouth twice a day. 0 08/19/2022 08/19/2023 senna-docusate (SENNA-S) 8.6-50 mg oral tablet Take 1 tablet by mouth twice a day as needed. 60 tablet 0 04/03/2023 documented as of this encounter Progress Notes * Subject, Aspen Raza RN - 04/07/2023 2:20 PM CST Michelle Franz [id number] P: Discharge A: Discharged via wheelchair to home at 1420 escorted by nurse I: Discharge information and arrangements included: review of written discharge instructions, prescriptions sent with patient, belongings list completed. R:Patient expressed understanding of information. BP 108/69 Pulse 67 Temp 97.5 ??F (36.4 ??C) Resp 16 Ht 5' 4 (1.626 m) Wt 61.2 kg (135 lb) SpO2 100% BMI 23.17 kg/m?? H WEIGHER * Trevon Buenrostro PA-C - 04/07/2023 8:28 AM CST Neurosurgery Progress Note Date of service: 04/07/2023 Assessment New onset left lower extremity pain status post L1-5 posterior spinal fusion - imaging not suspicious for alterations in hardware placement or acute fracture to explain her pain. Likely due to weightbearing changes in the postoperative period vs bursitis. Chronic pelvic fractures seen on imaging also not sufficient to explain current symptoms. Plan: Continue trial of steroids as well as baseline post-surgical pain regimen Continue bowel regimen Return for scheduled follow-up Okay for discharge at this time Subjective: Patient notes no significant changes overnight. Denies numbness or tingling. Endorses some weaknesswith lifting the left knee but is ambulating well with therapies. She notes she had some anxiety about her symptoms but after hearing the imaging looked good she is much more comfortable and is eagerto return home. She denies headache, nausea, vomiting. Objective: Vitals - BP 133/73 Pulse 72 Temp 97.4 ??F (36.3 ??C) Resp 18 Ht 5' 4 (1.626 m) Wt 61.2 kg (135 lb) SpO2 99% BMI 23.17 kg/m?? Temp (24hrs), Av.9 ??F (36.6 ??C), Min:97.4 ??F (36.3 ??C), Max:98.3 ??F (36.8 ??C) Physical Exam - A&Ox4 General: in no acute distress Incision: clean, dry and intact; steri strips in place x1/2 Respiratory: Breathing unlabored Abdomen: no distention noted Strength: ACOSTA 5/5 iliopsoas Right 4-/5 Left, 5/5 quadriceps, 5/5 hamstrings, 5/5 anterior tibialis,5/5 extensor hallucis longus, and 5/5 gastrocnemius Brisk left patellar reflex no Babinski's bilateral no Ankle Clonus bilateral Dermatomal sensation intact in BLE. Imaging: IMPRESSION: 1. Operative changes of posterior rei [...] throughout the lumbar spine, asymmetric at multiple levelsdue to scoliosis. REPORT SIGNED BY Janice Talavera M.D IMPRESSION: 1. 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 No discrete acute bony pelvic or proximal femoral fracture visualized. REPORT SIGNED BY Janice Talavera M.D. LABS: Lab Results Component Value Date/Time POTASSIUM 4.2 04/07/2023 07:01 AM SODIUM 136 04/07/2023 07:01 AM WBC 15.2 (H) 04/07/2023 07:01 AM Trevon Buenrostro PA-C 12:09 PM [facility] [place] Office: [phone] H WEIGHER * Leena Madrid RN - 04/07/2023 1:40 [...] Discharge: Anticipated location planning home with daughter. H WEIGHER * Rachel Mason RN - 04/06/2023 10:52 [...] PIV due to pain. D- Discharge: TBD H WEIGHER * Andrey Dumont RN - 04/06/2023 2:30 [...] Invasive Devices: PIV x1. 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 Chuck Carpenter MD H WEIGHER * Collin Tristan RN - 04/06/2023 6:29 AM CST Med-Surg Care Progression Note Type: Shift to shift summary Length of stay: 1 days Code Status: Full Code Primary Problem: left leg pain L 1-5 spinal fusion Summary:pt direct admit from [facility] ED. Pt had back fusion last Friday and dischargedhome. Came to [facility] ED for severe left leg pain and recurrent afib. Afib converted to sinus after 2 doses of cardizem. Transferred to [facility] for evaluation for possible post op complication. [...] Devices: PIV X 1 D- Discharge: TBD H WEIGHER * Marco Lantigua RN - 04/05/2023 10:38 PM CST Med-Surg Care Progression Note Type: Shift to shift summary Length of stay: 0 days Code Status: Full Code Primary Problem: acute left leg pain s/p L1-5 spinal fusion. Summary: pt direct admit from [facility] ED. Pt had back fusion last Friday and discharged home. Came to [facility] ED for severe left leg pain and recurrent afib. Afib converted to sinus after 2 doses of cardizem. Transferred to [facility] for evaluation for possible post op complication. [...] Devices: PIV x 1 D- Discharge: TBD H WEIGHER * Chuck Celestin PA-C - 04/05/2023 7:00 PM CST Spine note 77 yo female pod #4 L1-5 psf repair of incidental dural rent. Presenting with worsening LLE pain when standing. No bowel/bladder changes. LE motors intact. Plan t-rial of decadron. If not improving consider updated advanced imaging. Will formally consult in the morning. Chuck Celestin PA-C 7:05 PM [facility] [place] Office: [phone] H WEIGHER * Marco Lantigua RN - 04/05/2023 6:31 PM CST P. Admission A. Condition on Admit: alert. Patient/Family Concerns: Patient expressed concern about pain relief and diagnosis . I. Initial Interventions included: notified MD of patient arrival. Orientation to Unit: Patient oriented to initial physician orders, hourly rounding procedures, belongings checklist, unit and plan of care. R. Patient expressed understanding of information.. H WEIGHER documented in this encounter H&P Notes * Sergio Lara DO - 04/05/2023 6:12 PM CST ADMISSION HISTORY AND PHYSICAL Patient Name: Michelle Franz Address: [address] [place], [place] [id number] Age: 77 y.o. Sex: female Admission Date/Time: 04/05/2023 5:15 PM Primary Care Provider: Carolynn Alvarado MD Informant: patient CHIEF COMPLAINT: Left lower extremity Pain HPI: Ms. Franz is a 77-year-old female with medical conditions significant for atrial fibrillation (no AC) who presents to [facility] as a direct admit from [facility] ED on 04/05/23 for intractable left leg [...] and ambulate, causing patient to present to [facility] ED for further medical evaluation. There was concern for postoperative complication, prompting patient to be transferred to [facility] for reevaluation of previous procedure. Over the [...] HTN (hypertension) MRSA (methicillin resistant Staphylococcus aureus) 2015 12 yrs ago; nares (2015 w/outside facility) CLEARED by Infection Prevention 04/01/23 [...] STIMULATOR) supply Patient No No Sig: Company: [employer] for home use. oxyCODONE, immediate release, (ROXICODONE) [...] for multiple back surgeries who presents to [facility] as an direct admission from [facility] ED for left lower extremity intractable pain.Patient was admitted for further evaluation for possible postoperative complication. PLAN: Left lower extremity pain #Recent L1-5 posterior spinal fusion on 04/01/23 #Chronic back pain Patient presents to [facility] as direct admission for possible post operative [...] Not on anticoauglation due to pricing concerns. [id number] 4. 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 Zio patch was supposed to be ordered after lumbar spine surgery - EKG ordered, results pending - Rate controlled at this time - Will need to order Zio patch at time of discharge Hypertension #Hyperlipidemia - Continue LABOR DELIVERY SPECIALIST amlodipine and atenolol Dysthymic disorder #Chronic insomnia [...] care Time: 50 minutes Sergio Lara DO H WEIGHER documented in this encounter Consult Notes * Mariia Reyes, OT - 04/07/2023 11:23 AM CST Occupational Therapy Acute Evaluation Patient Name: Michelle Franz Today's Date: 04/07/2023 Admission Date: 04/05/2023 ASSESSMENT/PLAN/RECOMMENDATIONS Assessment/Plan/Recommendations OT Assessment Results: Impaired ADLs, Impaired IADLs, Impaired functional mobility, Impaired balance, Impaired endurance Strengths: Prior level of function, Good family support, Patient motivation, Patient cooperation, Ambulatory, Good strength Limitations/Discharge Barriers: Age, Lives alone, Pain, Current medical status, Limited mobility, Needs assist with ADL, Decreased balance, Decreased activity tolerance Rehab Potential: Good Treatment Interventions: ADL retraining, IADL management, Functional transfer training, Endurance training, Patient/family training, Home safety education, Equipment evaluation/education, Compensatory technique education OT Frequency: Other (comment) (1-2x more) Discharge Support Recommendations: Is safe to discharge to previous living situation with prior level of assist/support Requires assist with the following ADLs: Shower/bathing (Supervision initially) Requires assist with the following IADLs: Meal prep, Homemaking, Driving Post Acute Therapy Needs: No OT needs OT Plan Comments: Patient is a 77 year old female admitted with LLE pain, recent L1-5 spinal fusionon 04/01/23. At baseline, patient resides in a mobile home, alone. Ind with ADLs/IADLs. Reports her daughter, RENU and grandchildren live 30 feet away on the same property. Today, patient demonstrates a good understanding of spinal precautions. Completes bed mobility with modified ind via log roll technique. Dons pants and slip on shoes with SBA, completes toileting with SBA and R grab bar. SBA provided with functional transfers and mobility in room with intermittent UE support on crowder/furniture. Reports she recently purchased a 4WW and is waiting for her RENU to pick it up. Anticipate patient is safe to discharge home with increased assist for heavier IADLs including meals, cleaning, laundry, and driving. OT will follow up 1-2x more to further address ADLs/IADLS. Recommendations For Next Session: mobility with 4WW, simulate light meal prep, review rec for support with IADLs, review spinal precautions and importance of following bracing recommendations, d/c INPATIENT REHAB FACILITY CANDIDATE Inpatient Rehabilitation Facility Candidate Appropriate for Acute Inpatient Rehab?: No GENERAL General Visit Type: Initial Evaluation Diagnosis: intractable left leg pain Admission/Diagnosis Details: Presents to [facility] as a direct admit from [facility] ED on 04/05/23 for intractable left leg pain. Pertinent Past Medical History: atrial fibrillation (no AC), elective L1-5 posterior spinal fusion on 04/01/23. Patient Seen In: Room Family/Caregiver Present: No Cement Loader Used?: NA Hearing: Within Functional Limits PRECAUTIONS Precautions Devices/Equipment Required: Lumbar Spine Orthosis Precautions: Spinal Precautions Comments: Does not have LSO in the hospital SAFETY INTERVENTIONS Safety Interventions Fall Risk?: Yes Safety Interventions/Patient Disposition: Standard interventions, In chair, Direct handoff to another provider Comment: Handoff to PT PAIN Patient complained of L hip pain, does not formally rate. 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 UPPER EXTREMITY ASSESSMENTS ROM RUE ROM: Functional [...] ADL/IADL STATUS Current ADL Status Grooming Assistance: Independent LE Dressing Assistance: SBA (To don pants and slip on shoes) Toileting Assistance: SBA FUNCTIONAL MOBILITY Bed Mobility Scooting: Modified independent Supine to Sit: Modified independent Dangling: Independent Functional Transfers Sit to Stand: SBA Stand to Sit: SBA Toilet: SBA (With use of R grab bar. Reports having a sink she can push off of. Briefly discussed option of elevated toilet seat that can be purchased at various places. Verbalized an understanding.) Functional Mobility Functional Mobility: Patient ambualted ADL distances in room with SBA and no AD, intermittent furniture walking. ACTIVITY TOLERANCE Activity Tolerance Endurance: Participates 20-30 min of therapy session PATIENT EDUCATION Patient Education Patient Education: Role of OT, Plan of care, Weight bearing precautions, ROM precautions, Dischargerecommendations TIME SPENT WITH PATIENT OT Timed Code Treatment Minutes OT Evaluation: 18 OT Total Minutes Spent with Patient Total Minutes Spent With Patient (billable): 18 Minutes GOALS Time Frame Short term goals target date: 04/15/23 joint terminal attack controller goals target date: 04/21/23 Patient/Family Participation in Goal Setting Patient participated in goal setting: Yes Patient goal preference: home today STG Grooming Patient will complete daily grooming and light hygiene task: with supervision, while standing at the sink Outcome: Goal Met STG LE Dressing Patient will dress lower body donning/doffing: shoes, pants, with supervision Outcome: Goal Met STG Toileting Patient will complete toileting: with supervision Outcome: Goal Met STG Meal Preparation Patient will complete meal preparation: of microwave task, with contact guard assist Outcome: Goal Ongoing Snf Goals Patient will complete ADLs including: feeding, hygiene/grooming, dressing, toileting, bathing, independently Outcome: Goal Ongoing Patient will complete IADLs including: meal preparation, independently Outcome: Goal Ongoing H WEIGHER * Brian Morel, PT - 04/07/2023 11:00 AM CST Acute Physical Therapy Evaluation Patient Name: Michelle Franz Today's Date: 04/07/2023 Admission Date: 04/05/2023 Precautions Precautions Devices/Equipment Required: Lumbar Spine Orthosis Precautions: Spinal Precautions Comments: Does not have LSO in the hospital Assessment PT Assessment/Recommendations Assessment: Patient is a 77 year old female presenting for initial PT evaluation following admission to hospital for intractable left leg pain. Pt's medical history complicated by atrial fibrillation(no AC) and elective L1-5 posterior spinal fusion on 04/01/23. Pt reports using RW since discharge but her son plans to purchase her a 4WW today. She reported improved LLE pain although still having hip flexor weakness and decreased sensation throughout limb. Reviewed spinal precautions and importance of brace use (did not have with her today). Following education, she performed bed mobility, STS and ambulation with SBA. She declined to attempt stairs stating she had no concerns. She appears able to return home with family support and eventual OP PT follow-up. She will be discharged from PT services as patient discharging home today. Strengths: Patient cooperation, Ambulatory Limitations/Discharge Barriers: Age, Pain, Limited mobility Endurance: Participates 20-30 min of therapy session Prognosis: Good Recommendations for Nursing: Mobilize with supervision, Use of assistive device with mobility Type of Assistive Device: RW Discharge Support Recommendations: Requires increased support/assist Mobility Needs at Discharge: Supervision during mobility Post Acute Therapy Needs: Continued PT at next level of care (Eventual OP PT) Plan PT Frequency: No further acute PT needed Interventions: Therapeutic activities, Gait training (on 04/07) Encounter Details General Diagnosis: intractable left leg pain Admission/Diagnosis Details: Presents to [facility] as a direct admit from [facility] on 04/05/23 for intractable left leg pain. Pertinent Past Medical History: atrial fibrillation (no AC), elective L1-5 posterior spinal fusion on 04/01/23. Patient Seen In: Room Family/Caregiver Present: No Subjective Comments: Patient agreeable to PT evaluation. Very talkative throughout Subjective/Social History Home Setup Type of Home: Mobile Home Lives With: Alone Home Layout: One level Home Entry: Stairs to enter with rails Rails: Unilateral Number of stairs: 3 Stairs within Home: Able to live on main level Comment: Daughter lives next door Prior Level of Functional Mobility Independent with: All Mobility Mobility Equipment Used: Rolling walker DME owned: Rolling walker History of falls: Denied Comment: Has been using RW after surgery, wanting to buy 4WW Pain Patient complained of 6/10 pain in back. Objective Cognitive Status Orientation Level: Oriented X4 Arousal/Alertness: Appropriate responses to stimuli Following Commands: Follows one step commands Safety Judgment: Verbal cues needed for safety Motor Planning/Processing: Within Functional Limits Cognition Comments: Very tangential ROM RLE: WFL LLE: WFL Comments: Reported continued LLE cramping (starts in groin) Strength RLE MMT: R hip flexion, R knee flexion, R knee extension, R ankle dorsiflexion R Hip Flexion: 4/5 R Knee Flexion: 5/5 R Knee Extension: 5/5 R Ankle Dorsiflexion: 5/5 LLE MMT: L hip flexion, L knee flexion, L knee extension, L ankle dorsiflexion L Hip Flexion: 3+/5 L Knee Flexion: 4/5 L Knee Extension: 5/5 L Ankle Dorsiflexion: 5/5 Sensation Light Touch: Intact in the RLE, Diminished in the LLE (Reports decreased sensation in LLE compared to RLE) Patient is functioning as follows: Bed Mobility Supine to Sit: Standby assist Sit to Supine: Standby assist Setup/Equipment: HOB flat Bed Mobility Comments: Good log roll technique Transfers Transfer Type: Sit to/from Stand Sit to/from Stand Level of Assist: Standby assist Assistive Device: 4 wheeled walker Comments: Pt reported she plans to purchase 4WW. Educated on safe use, especially in regards to brakes Ambulation Ambulation Assessment: Bout 1 Bout 1 Distance (ft): 100' Assistive Device: 4 wheeled walker Level of Assist: Standby Assist Quality of Gait: Cues for safety when using 4WW. Slow rafa but steady Comments: Pt reported son plans to buy 4WW today [facility] AM-PAC 6-Clicks Turning over in bed (including adjusting bed clothes, sheets, and blankets): Modified independent/independent Sitting down and standing up from a chair with arms: Minimum/contact guard/standby assist Moving from lying on back to sitting on the side of bed: Minimum/contact guard/standby assist Moving to and from a bed to a chair: Minimum/contact guard/standby assist Walk in hospital room?: Minimum/contact guard/standby assist Climbing 3-5 steps with a railing: Minimum/contact guard/standby assist AM-PAC 6 Clicks: Mobility Total Score: 19 The following scores are predictive of discharge disposition during acute hospitalization: Home= 20or greater; Home with Home Health=18; Continued skilled care at appropriate facility= 14 or less. Treatment Therapeutic Activity Therapeutic Activity: Activity 1 Activity 1: Reviewed spinal precautions and importance of adherence to brace use at discharge Activity 2: Transfers/gait above Education/Safety Education Provided Patient Education: Role of PT, ROM/Positioning, Transfers, Bed mobility, Ambulation, Safe use of assistive device, Post-surgical precautions, Safety with mobility, Plan of care, Discharge recommendations Family Education: Family not present Safety Interventions Fall Risk?: Yes Safety Interventions/Patient Disposition: Standard interventions, In chair, Call light in hand, Notified nursing staff Goals Time Frame Goals target date: 04/21/23 Patient/family participation in goal setting Patient/family participation in goal setting: Yes Patient goal preference: go home now Patient will Participate in PT Evaluation Patient will participate in PT evaluation in order to provide safe discharge mobility recommendations: Goal met Gait Level of Assist: Standby assist Assistive Device: 4 wheeled walker Distance: >50' Outcome: Goal met TIME SPENT WITH PATIENT PT Time Spent with Patient for Evaluation PT Evaluation: 16 PT Timed Code Treatment Minutes (outside of evaluation) PT Therapeutic Activity: 8 PT Timed Code Treatment Minutes PT Total Billable Minutes: 24 Minutes H WEIGHER documented in this encounter Nursing Notes * Leena Madrid RN - 04/07/2023 1:45 AM CST Problem: [...] Light on Outside Patient 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 Door (NMR) High Risk Armband On (Green Bracelet) Hi-Lo Bed (Versa-Care) Mobility Safety Interventions: Standard Interventions in Place Stay Within Arms Reach Use Assistive Device When Patient Is Up Transfer/Gait Belt In Use When Patient Is Up Bed Alarm on Fall Prevention Slippers Problem: Anticoagulation, pharmacologic therapy Goal: Adheres to therapeutic regimen Outcome: Met this shift H WEIGHER * Rachel Mason RN - 04/06/2023 4:50 PM CST Problem: Mobility - Impaired Goal: Demonstrates ability to perform physical activity independently or with assistive devices as needed Outcome: Met this shift Problem: Confusion - Acute, Actual or Risk of Goal: Maintains/improves cognitive status within limits of condition Outcome: Met this shift H WEIGHER * Andrey Dumont RN - 04/06/2023 12:40 PM CST Problem: Mobility - Impaired Goal: Demonstrates ability to perform physical activity independently or with assistive devices as needed Outcome: Ongoing Goal: Verbalizes an understanding of immobility risks and complications Outcome: Ongoing Problem: Confusion - Acute, Actual or Risk of Goal: Maintains/improves cognitive status within limits of condition Outcome: Ongoing H WEIGHER * Marco Lantigua RN - 04/05/2023 8:45 PM CST Problem: Mobility - Impaired Goal: Demonstrates ability to perform physical activity independently or with assistive devices as needed Outcome: Met this shift Problem: Confusion - Acute, Actual or Risk of Goal: Maintains/improves cognitive status within limits of condition Outcome: Met this shift Problem: Falls/Injury-Risk of Goal: Absence of Falls/Injury Outcome: Met this shift H WEIGHER documented in this encounter ED Notes * Ricarda Lu MD - 04/05/2023 12:58 PM CST [facility] Medicine - Triage Acceptance Note: Time of call: 04/05/2023 12:58 PM Referring Clinician: Dr Mayer at [facility] Diagnosis: Upper left leg weakness Summary: Michelle Franz is a 77 y.o. female with pmhx of Afib not on anticoagulation presents with left leg cramp after she was discharged from [facility] on 04/04 for elective L1-5 posterior spinal fusion with instrumentation. In the ED it was noted she was in Afib with RVR, she was given a dose of cardizem with improvement of the HR to the 80s. Transfer is requested for evaluation of post surgical complication REJI Johansen ([facility]) was notified of case and approved of direct admission transfer to [facility] Relevant Physical Examination Items: Unremarkable, aside from [...] neurosurgery consult Please call Patient Placement at [phone] for assignment of patient to an appropriate ACM team once the patient arrives to the floor. Thank you. H WEIGHER documented in this encounter Plan of Treatment Scheduled Referrals Name Type Priority Associated Diagnoses Orde r Schedule Follow Up Follow Up Routine Ordered: 04/07 documented as of this encounter Procedures Procedure Name Priority Date/Time Associated Diagnosis Comments CK TOTAL Routine 04/07/2023 7:01 AM [facility] COMPREHENSIVE METABOLIC PANEL Routine 04/07/2023 7:01 AM [facility] CBC/DIFF Routine 04/07/2023 7:[address] SPINE LUMBAR W/O CON Routine 04/06/2023 12:10 PM [facility] XR PELVIS & HIP LATERAL BILAT Routine 04/06/2023 10:07 AM [facility] HBA1C / EAG Add On 04/05/2023 7:07 PM [facility] CK TOTAL Add On 04/05/2023 7:07 PM [facility] COMPREHENSIVE METABOLIC PANEL Routine 04/05/2023 7:07 PM [facility] CBC (HGB,HCT,WBC,RBC,PLATE LET) Routine 04/05/2023 7:07 PM [facility] documented in this encounter Results * CK Total (04/07/2023 7:01 AM [facility]) Only the most recent of2 resultswithin the time period is included. Pathologist [facility] CK Total 174 34 - 192 U/L 04/07/2023 8:01 AM [facility] Blood 04/07/2023 7:01 AM [facility] 04/07/2023 7:29 AM [facility] Chuck Carpenter MD CHEMISTRY ORDERABLE [facility] [address] [place] [address] * (ABNORMAL) CBC / Diff (04/07/2023 7:01 AM [facility]) Pathologist [facility] WBC 15.2(H) 4.3 - 10.8 K/uL 04/07/2023 7:34 AM [facility] RBC 2.90(L) 4.20 - 5.40 M/uL 04/07/2023 7:34 AM [facility] Hemoglobin 8.8(L) 12.0 - 16.0 gm/dL 04/07/2023 7:34 AM [facility] Hematocrit 26.9(L) 36.0 - 48.0 % 04/07/2023 7:34 AM [facility] MCV 93 80 - 100 fL 04/07/2023 7:34 AM [facility] MCH 30 27 - 33 pg 04/07/2023 7:34 AM [facility] MCHC 33 33 - 36 gm/dL 04/07/2023 7:34 AM [facility] RDW 13.0 11.5 - 14.5 % 04/07/2023 7:34 AM [facility] Platelet Count 468(H) 150 - 400 K/UL 04/07/2023 7:34 AM [facility] MPV 10.2 6.5 - 12 fL 04/07/2023 7:34 AM [facility] PMN % 80.8 % 04/07/2023 7:34 AM [facility] IG % 2.0(H) <=1.0 % 04/07/2023 7:34 AM [facility] Comment:Immature granulocyte s often indicate left shift when outside of normal limits. Lymphocyte % 11.8 % 04/07/2023 7:34 AM [facility] Monocyte % 5.0 % 04/07/2023 7:34 AM [facility] Eosinophil % 0.2 % 04/07/2023 7:34 AM [facility] Basophil % 0.2 % 04/07/2023 7:34 AM [facility] PMN Absolute 12.32(H) 1.80 - 7.80 K/uL 04/07/2023 7:34 AM [facility] Lymphocyte Absolute 1.80 1.00 - 4.00 K/uL 04/07/2023 7:34 AM [facility] Monocyte Absolute 0.76 0.00 - 1.00 K/uL 04/07/2023 7:34 AM [facility] Eosinophil Absolute 0.03 0.00 - 0.45 K/uL 04/07/2023 7:34 AM [facility] Basophil Absolute 0.03 0.00 - 0.20 K/uL 04/07/2023 7:34 AM [facility] Nucl RBC % 0.0 0.0 - 0.0 /100 WBC 04/07/2023 7:34 AM [facility] Nucl RBC Absolute 0.00 0.00 - 0.00 K/uL 04/07/2023 7:34 AM [facility] Blood 04/07/2023 7:01 AM [facility] 04/07/2023 7:30 AM [facility] Chuck Carpenter MD HEMATOLOGY ORDERABLE [facility] [address] [id number] * (ABNORMAL) Comprehensive Metabolic Panel (04/07/2023 7:01 AM [facility]) Only the most recent of2 resultswithin the time period is included. Sodium 136 136 - 145 mmol/L 04/07/2023 8:01 AM [facility] Potassium 4.2 3.4 - 5.1 mmol/L 04/07/2023 8:01 AM [facility] Chloride 103 98 - 108 mmol/L 04/07/2023 8:01 AM [facility] Carbon Dioxide 27 20 - 31 mmol/L 04/07/2023 8:01 AM [facility] BUN (Urea Nitro) 20 9 - 23 mg/dL 04/07/2023 8:01 AM [facility] Creatinine 0.66 0.55 - 1.02 mg/dL 04/07/2023 8:01 AM [facility] Est GFR (CKD-EPI) >60.00 >60.00 mL/min/1. 73m2 04/07/2023 8:01 AM [facility] Comment:Calculation based on the Chronic Kidney Disease Epidemiology Collaboration (CKD-EPI) equation refit without adjustment for race. Glucose 147(H) 74 - 106 mg/dL 04/07/2023 8:01 AM [facility] Calcium, Serum 8.2(L) 8.7 - 10.4 mg/dL 04/07/2023 8:01 AM [facility] Anion Gap 6.0 0.0 - 15.0 mmol/L 04/07/2023 8:01 AM [facility] Albumin 2.8(L) 3.4 - 5.0 g/dL 04/07/2023 8:01 AM [facility] Bilirubin-Total 0.3 0.3 - 1.2 mg/dL 04/07/2023 8:01 AM [facility] Alkaline Phosphatase 107 46 - 116 U/L 04/07/2023 8:01 AM [facility] Protein Total 6.3 5.7 - 8.2 g/dL 04/07/2023 8:01 AM [facility] AST (SGOT) 22 13 - 40 U/L 04/07/2023 8:01 AM [facility] ALT 87(H) 7 - 40 U/L 04/07/2023 8:01 AM [facility] Blood 04/07/2023 7:01 AM [facility] 04/07/2023 7:29 AM [facility] Chuck Carpenter MD CHEMISTRY ORDERABLE [facility] [address] [place] [address] * CT Spine Lumbar w/o Contrast (04/06/2023 12:10 PM [facility]) Anatomical Region Laterality Modality Spine Computed Tomogra phy 04/06/2023 12:0 6 PM [facility] Impressions 04/06/2023 12:22 PM [facility] IMPRESSION: 1. Operative changes of posterior rei [...] Janice Talavera M.D. Narrative 04/06/2023 12:22 PM [facility] EXAM: ??CT SPINE LUMBAR W/O CON DATE: [...] operative changes of posterior rei and pedicle screwfixation from L1-L5 with posterolateral [...] REPORT SIGNED BY Janice Talavera M.D. Nj Ying Fadumo PA-C CT ORDERABLE * XR PELVIS & HIP LATERAL BILAT (04/06/2023 10:07 AM [facility]) Anatomical Region Laterality Modality ABD/Pelvis Computed Radiogr aphy 04/06/2023 10:0 8 AM [facility] Impressions 04/06/2023 10:09 AM [facility] IMPRESSION: 1. 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 No discrete acute bony pelvic or proximal femoral fracture visualized. REPORT SIGNED BY Janice Talavera M.D. Narrative 04/06/2023 10:09 AM [facility] EXAM: ??XR PELVIS & HIP LATERAL BILAT [...] Hgb A1c (Glycosolated Hgb) (04/05/2023 7:07 PM [facility]) Pathologist [facility] HBA1C (GLYCOSOLATED HGB) 5.1 <5.7 % 04/06/2023 12:57 PM [facility] EAG (EST. AVERAGE GLUCOSE) 100 <117 mg/dL 04/06/2023 12:57 PM [facility] Blood 04/05/2023 7:07 PM [facility] 04/05/2023 7:34 PM [facility] Chuck Carpenter MD CHEMISTRY ORDERABLE Performing Organization Address City/State/[facility] Co de Phone Number [facility] [address] [place] [address] * (ABNORMAL) CBC (Hgb,Hct,WBC,RBC,Platelet) (04/05/2023 7:07 PM [facility]) WBC 12.6(H) 4.3 - 10.8 K/uL 04/05/2023 7:52 PM [facility] RBC 3.05(L) 4.20 - 5.40 M/uL 04/05/2023 7:52 PM [facility] Hemoglobin 9.6(L) 12.0 - 16.0 gm/dL 04/05/2023 7:52 PM [facility] Hematocrit 28.7(L) 36.0 - 48.0 % 04/05/2023 7:52 PM [facility] MCV 94 80 - 100 fL 04/05/2023 7:52 PM [facility] MCH 32 27 - 33 pg 04/05/2023 7:52 PM [facility] MCHC 33 33 - 36 gm/dL 04/05/2023 7:52 PM [facility] RDW 13.1 11.5 - 14.5 % 04/05/2023 7:52 PM [facility] Platelet Count 483(H) 150 - 400 K/UL 04/05/2023 7:52 PM [facility] MPV 9.3 6.5 - 12 fL 04/05/2023 7:52 PM [facility] Blood 04/05/2023 7:07 PM [facility] 04/05/2023 7:34 PM [facility] Sergio Lara DO HEMATOLOGY ORDERABLE [facility] [address] [place] [address] documented in this encounter Visit Diagnoses Diagnosis Acute pain of left lower extremity- Primary documented in this encounter Admitting Diagnoses Diagnosis Acute pain of left lower extremity documented in this encounter Administered Medications Inactive Administered Medications - up to 3 most recent administrations Medication Order MAR Action Action Date Dose Rate Site saline FLUSH syringe 10 mL 10 mL, Intravenous, EVERY 8 HOURS, First dose on [facility] 04/05/23 at 2200, Until Discontinued Given 04/06/2023 2:00 PM [facility] 10 mL Given 04/05/2023 11:54 PM [facility] 10 mL acetaminophen (TYLENOL) rectal suppository 650 mg 650 mg, Rectal, EVERY 6 HOURS (NS), First dose on 04/05/23 at 1930, Until Discontinued acetaminophen (TYLENOL) tablet 1,000 mg 1,000 mg, oral, EVERY 6 HOURS (NS), First dose on 04/05/23 at 1930, Until Discontinued Given 04/07/2023 2:09 PM [facility] 1,000 mg Given 04/07/2023 8:44 AM [facility] 1,000 mg Given 04/07/2023 1:32 AM [facility] 1,000 mg amLODIPine (NORVASC) tablet 10 mg 10 mg, oral, DAILY, First dose on 04/05/23 at 1930, Until Discontinued Given 04/07/2023 8:44 AM [facility] 10 mg Given 04/06/2023 8:45 AM [facility] 10 mg Given 04/05/2023 8:14 PM [facility] 10 mg atenolol (TENORMIN) tablet 25 mg 25 mg, oral, DAILY, First dose on 04/05/23 at 1930, Until Discontinued Given 04/07/2023 8:44 AM [facility] 25 mg Given 04/06/2023 8:45 AM [facility] 25 mg bisacodyl (DULCOLAX) suppository 1 suppository 1 suppository, Rectal, DAILY NEEDED, Starting on Fri04/07/23 at 1048, Until Fri04/07/23 at 2023, constipation calcium carbonate (TUMS) chewable tablet 500 mg 500 mg (1 tablet), oral, TWICE A DAY WITH BREAKFAST AND DINNER, First dose on 04/05/23 at 1930, Until Discontinued Given 04/07/2023 8:44 AM [facility] 500 mg Given 04/06/2023 4:44 PM [facility] 500 mg desipramine (Norpramin) tablet 25 mg 25 mg, oral, AT BEDTIME, First dose on Fri04/05/23 at 2200, Until Discontinued Given 04/07/2023 9:38 AM [facility] 25 mg Given 04/05/2023 11:52 PM [facility] 25 mg dexAMETHasone (DECADRON) tablet 4 mg 4 mg, oral, EVERY 6 HOURS, 8 doses, First dose on Fri04/06/23 at 1400, Last dose on Fri04/08/23 at 0800 Given 04/07/2023 2:09 PM [facility] 4 mg Given 04/07/2023 8:44 AM [facility] 4 mg Given 04/07/2023 1:32 AM [facility] 4 mg dexAMETHasone (DECADRON) tablet 6 mg 6 mg, oral, DAILY, First dose on 04/05/23 at 1930, Until Discontinued Given 04/06/2023 8:44 AM [facility] 6 mg Given 04/05/2023 8:12 PM [facility] 6 mg docusate sodium (COLACE) capsule 100 mg 100 mg, oral, TWICE A DAY, First dose on Fri04/07/23 at 1100, Until Discontinued Given 04/07/2023 12:22 PM [facility] 100 mg DULoxetine (CYMBALTA) delayed release capsule 20 mg 20 mg, oral, DAILY, First dose on 04/05/23 at 1930, Until Discontinued Given 04/06/2023 7:27 PM [facility] 20 mg Given 04/05/2023 8:17 PM [facility] 20 mg DULoxetine (CYMBALTA) delayed release capsule 60 mg 60 mg, oral, DAILY, First dose on 04/05/23 at 1930, Until Discontinued Given 04/06/2023 7:26 PM [facility] 60 mg Given 04/05/2023 8:14 PM [facility] 60 mg ergocalciferol (vitamin D2) capsule 50,000 Units 50,000 Units, oral, EVERY 7 DAYS, First dose on Fri04/07/23 at 0800, Until Discontinued Given 04/07/2023 8:44 AM [facility] 50,000 Units famotidine (PEPCID) tablet 20 mg 20 mg, oral, DAILY, First dose on 04/05/23 at 1930, Until Discontinued Given 04/07/2023 8:44 AM [facility] 20 mg Given 04/06/2023 8:44 AM [facility] 20 mg lidocaine 4% (Salonpas) adhesive patch, medicated 1-3 patch 1-3 patch, Transdermal, DAILY, First dose on Fri04/06/23 at 1045, Until Discontinued LORazepam (ATIVAN) tablet 1 mg 1 mg, oral, AT BEDTIME NEEDED, Starting on 04/05/23 at 1826, Until Fri04/07/23 at 2023, anxiety, sleep Given 04/06/2023 11:09 PM [facility] 1 mg Given 04/05/2023 11:23 PM [facility] 1 mg methocarbamoL (ROBAXIN) tablet 500 mg 500 mg, oral, EVERY 6 HOURS NEEDED, Starting on 04/05/23 at 1828, Until Fri04/07/23 at 2023, muscle spasm Given 04/07/2023 12:17 PM [facility] 500 mg Given 04/07/2023 1:32 AM [facility] 500 mg Given 04/06/2023 5:25 PM [facility] 500 mg methyl salicylate-menthol (BENGAY) topical cream topical, THREE TIMES A DAY NEEDED, Starting on 04/06/23 at 1039, Until Fri04/07/23 at 2023, pain ondansetron (ZOFRAN) disintegrating tablet 4-8 mg 4-8 mg, oral, EVERY 8 HOURS NEEDED, Starting on 04/05/23 at 1829, Until Fri04/07/23 at 2023, nausea & vomiting ondansetron (ZOFRAN) injection 4-8 mg 4-8 mg, Intravenous, EVERY 8 HOURS NEEDED, Starting on 04/05/23 at 1829, Until Fri04/07/23 at 2023, nausea & vomiting oxyCODONE (immediate release) (ROXICODONE) tablet 5-10 mg 5-10 mg, oral, EVERY 4 HOURS NEEDED, Starting on 04/05/23 at 1831, Until Fri04/07/23 at 2023, Pain, when taking PO Given 04/07/2023 2:09 PM [facility] 5 mg Given 04/07/2023 9:39 AM [facility] 10 mg Given 04/07/2023 5:28 AM [facility] 10 mg polyethylene glycol (MIRALAX) packet 17 g 17 g, oral, TWICE A DAY, First dose on Fri04/07/23 at 1100, Until Discontinued pregabalin (LYRICA) capsule 50 mg 50 mg, oral, TWICE A DAY, First dose on 04/05/23 at 2000, Until Discontinued Given 04/05/2023 8:14 PM [facility] 50 mg pregabalin (LYRICA) capsule 75 mg 75 mg, oral, TWICE A DAY, First dose (after last modification) on 04/06/23 at 2000, Until Discontinued Given 04/07/2023 8:44 AM [facility] 75 mg Given 04/06/2023 7:22 PM [facility] 75 mg senna (SENOKOT) tablet 17.2 mg 17.2 mg (2 tablet), oral, DAILY, First dose on Fri04/07/23 at 1100, Until Discontinued documented in this encounter Active and Recently Administered Medications Times are shown in [facility]. Scheduled Medication Order 04/05/2023 04/06/2023 04/07/2023 saline FLUSH syringe 10 mL 10 mL, Intravenous, EVERY 8 HOURS, First dose on 04/05/23 at 2200, Until Discontinued 4 (Given - Provider: Collin Tristan RN) 0651 (Canceled Entry - Provider: Collin Tristan RN)1400 (Given - Provider: Andrey Dumont RN)2200 (Not Given - Provider: Rachel Mason RN - Reason: Clinically appropriate (comment)) 0600 (Canceled Entry - Provider: Leena Madrid RN - Comment: No PIV)1400 (Canceled Entry - Provider: Aspen Gambino RN) acetaminophen (TYLENOL) rectal suppository 650 mg(Linked Group 1) 650 mg, Rectal, EVERY 6 HOURS (NS), First dose on 04/05/23 at 1930, Until Discontinued 2014 (See Alternative - Provider: Marco Lantigua RN) 013 (See Alternative - Provider: Collin Tristan RN)0913 (See Alternative - Provider: Andrey Dumont RN)1502 (See Alternative - Provider: Andrey Dumont RN)192 (See Alternative - Provider: Rachel Mason RN) 013 (See Alternative - Provider: Leena Madrid RN)0844 (See Alternative - Provider: Aspen Gambino, ANGELES)1409 (See Alternative - Provider: Aspen Gambino, ANGELES) acetaminophen (TYLENOL) tablet 1,000 mg(Linked Group 1) 1,000 mg, oral, EVERY 6 HOURS (NS), First dose on 04/05/23 at 1930, Until Discontinued 2014 (Given - Provider: Marco Lantigua RN) 129 (Declined - Provider: Collin Tristan RN)09 (Given - Provider: Andrey Dumont RN)1502 (Given - Provider: Andrey Dumont RN)1923 (Given - Provider: Rachel Mason RN) 013 (Given - Provider: Leena Madrid RN)0844 (Given - Provider: Aspen Gambino RN)1409 (Given - Provider: Aspen Gambino, ANGELES) amLODIPine (NORVASC) tablet 10 mg 10 mg, oral, DAILY, First dose on 04/05/23 at 1930, Until Discontinued 2013 (Given - Provider: Marco Lantigua RN) 0845 (Given - Provider: Janice Mooney RN) 0844 (Given - Provider: Aspen Gambino, RN) atenolol (TENORMIN) tablet 25 mg 25 mg, oral, DAILY, First dose on 04/05/23 at 1930, Until Discontinued 1929 (Declined - Provider: Marco Lantigua RN - Comment: said she had metoprolol today) 0845 (Given - Provider: Janice Mooney RN) 0844 (Given - Provider: Aspen Gambino, RN) calcium carbonate (TUMS) chewable tablet 500 mg 500 mg (1 tablet), oral, TWICE A DAY WITH BREAKFAST AND DINNER, First dose on 04/05/23 at 1930, Until Discontinued 1929 (Declined - Provider: Marco Lantigua RN) 0843 (Declined - Provider: Janice Mooney RN)164 (Given - Provider: Rachel Mason RN) 0844 (Given - Provider: Aspen Gambino, ANGELES) desipramine (Norpramin) tablet 25 mg 25 mg, oral, AT BEDTIME, First dose on 04/05/23 at 2200, Until Discontinued 2351 (Given - Provider: Collin Tristan RN) 0 (Declined - Provider: Rachel Mason RN) 0938 (Given - Provider: Aspen Gambino RN) dexAMETHasone (DECADRON) tablet 4 mg 4 mg, oral, EVERY 6 HOURS, 8 doses, First dose on Fri04/06/23 at 1400, Last dose on Fri04/08/23 at 0800 1320 (Given - Provider: Andrey Dumont RN)1923 (Given - Provider: Rachel Mason RN) 0132 (Given - Provider: Leena Madrid RN)0844 (Given - Provider: Aspen Gambino, RN)1409 (Given - Provider: Aspen Gambino, RN) dexAMETHasone (DECADRON) tablet 6 mg (CANCELED) 6 mg, oral, DAILY, First dose on 04/05/23 at 1930, Until Discontinued 2011 (Given - Provider: Marco Lantigua RN) 0844 (Given - Provider: Janice Mooney RN) docusate sodium (COLACE) capsule 100 mg 100 mg, oral, TWICE A DAY, First dose on Fri04/07/23 at 1100, Until Discontinued 1222 (Given - Provider: Aspen Gambino RN) DULoxetine (CYMBALTA) delayed release capsule 20 mg 20 mg, oral, DAILY, First dose on 04/05/23 at 1930, Until Discontinued 2016 (Given - Provider: Marco Lantigua RN) 0844 (Declined - Provider: Janice Mooney RN - Comment: jeannine DUNBAR)192 (Given - Provider: Rachel Mason RN) DULoxetine (CYMBALTA) delayed release capsule 60 mg 60 mg, oral, DAILY, First dose on 04/05/23 at 1930, Until Discontinued 2013 (Given - Provider: Marco Lantigua RN) 0844 (Declined - Provider: Janice Mooney RN - Comment: jeannine DUNBAR)1925 (Given - Provider: Rachel Mason RN) enoxaparin (LOVENOX) injection 40 mg 40 [...] Carpenter MD) 0847 (Declined - Provider: Aspen Gambino, AGNELES) ergocalciferol (vitamin D2) capsule 50,000 Units 50,000 Units, oral, EVERY 7 DAYS, First dose on Fri04/07/23 at 0800, Until Discontinued 0844 (Given - Provider: Aspen Gambino RN) famotidine (PEPCID) tablet 20 mg 20 mg, oral, DAILY, First dose on 04/05/23 at 1930, Until Discontinued 193 (Declined - Provider: Marco Lantigua RN) 0844 (Given - Provider: Janice Mooney RN) 0844 (Given - Provider: Aspen Gambino RN) lidocaine 4% (Salonpas) adhesive patch, medicated 1-3 patch 1-3 patch, Transdermal, DAILY, First dose on 04/06/23 at 1045, Until Discontinued 1045 (Declined - Provider: Andrey Dumont RN) 0848 (Declined - Provider: Aspen Gambino RN) polyethylene glycol (MIRALAX) packet 17 g 17 g, oral, TWICE A DAY, First dose on Fri04/07/23 at 1100, Until Discontinued 1100 (Declined - Provider: Aspen Gambino, ANGELES) pregabalin (LYRICA) capsule 50 mg (CANCELED) 50 mg, oral, TWICE A DAY, First dose on 04/05/23 at 2000, Until Discontinued 2013 (Given - Provider: Marco Lantigua RN) 0844 (Declined - Provider: Janice Mooney RN) pregabalin (LYRICA) capsule 75 mg 75 mg, oral, TWICE A DAY, First dose (after last modification) on Fri04/06/23 at 2000, Until Discontinued 1921 (Given - Provider: Rachel Mason RN) 0844 (Given - Provider: Aspen Gambino RN) senna (SENOKOT) tablet 17.2 mg 17.2 mg (2 tablet), oral, DAILY, First dose on Fri04/07/23 at 1100, Until Discontinued 1100 (Declined - Provider: Aspen Gambino RN) PRN Medication Order 04/05/2023 04/06/2023 04/07/2023 saline FLUSH syringe 10 mL 10 mL, Intravenous, NEEDED, Starting on 04/05/23 at 1828, Until Fri04/07/23 at 2023, Line Care bisacodyl (DULCOLAX) suppository 1 suppository 1 suppository, Rectal, DAILY NEEDED, Starting on Fri04/07/23 at 1048, Until Fri04/07/23 at 2023, constipation HYDROmorphone (DILAUDID) syringe 0.5-1 mg 0.5-1 mg, Intravenous, EVERY 2 HOURS NEEDED, Starting on 04/05/23 at 1827, Until Fri04/07/23 at 2023, Pain, when NOT taking PO hydrOXYzine pamoate (Vistaril) capsule 25 mg 25 mg, oral, EVERY 6 HOURS NEEDED, Starting on 04/05/23 at 1826, Until Fri04/07/23 at 2023, anxiety, Adjuvant to pain management 0527 (Declined - Provider: Leena Madrid, ANGELES) lidocaine (LMX-4) topical cream 1 Application topical, NEEDED, Starting on 04/05/23 at 1828, Until Fri04/07/23 at 2023, IV start or restart if patient prefers a needleless local anesthetic. lidocaine / sod bicarb (buffered lidocaine) syringe for IV starts 0.1-0.3 mL 0.1-0.3 mL, Intradermal, NEEDED, Starting on 04/05/23 at 1828, Until Fri04/07/23 at 2023, IV line placement, IV start or restart lidocaine 1% injection (conc: 10 mg/mL) 0.1-0.3 mL 0.1-0.3 mL, Intradermal, NEEDED, Starting on 04/05/23 at 1828, Until Fri04/07/23 at 2023, Local Anesthesia, IV start or restart LORazepam (ATIVAN) tablet 1 mg 1 mg, oral, AT BEDTIME NEEDED, Starting on 04/05/23 at 1826, Until Fri04/07/23 at 2023, anxiety, sleep 2323 (Given - Provider: Collin Tristan RN) 2309 (Given - Provider: Rachel Mason RN) methocarbamoL (ROBAXIN) tablet 500 mg 500 mg, oral, EVERY 6 HOURS NEEDED, Starting on 04/05/23 at 1828, Until Fri04/07/23 at 2023, muscle spasm 2014 (Given - Provider: Marco Lantigua RN) 1106 (Given - Provider: Andrey Dumont RN)1725 (Given - Provider: Rachel Mason RN) 0132 (Given - Provider: Leena Madrid RN)1217 (Given - Provider: Aspen Gambino RN) methyl salicylate-menthol (BENGAY) topical cream topical, THREE TIMES A DAY NEEDED, Starting on 04/06/23 at 1039, Until Fri04/07/23 at 2023, pain naloxone (NARCAN) injection 0.1 mg 0.1 mg, Intravenous, EVERY 1 MINUTE PRN, Starting on 04/05/23 at 1827, Until Fri04/07/23 at 2023, Opiate Reversal ondansetron (ZOFRAN) disintegrating tablet 4-8 mg(Linked Group 2) 4-8 mg, oral, EVERY 8 HOURS NEEDED, Starting on 04/05/23 at 1829, Until Fri04/07/23 at 2023, nausea & vomiting ondansetron (ZOFRAN) injection 4-8 mg(Linked Group 2) 4-8 mg, Intravenous, EVERY 8 HOURS NEEDED, Starting on 04/05/23 at 1829, Until Fri04/07/23 at 2023, nausea & vomiting oxyCODONE (immediate release) (ROXICODONE) tablet 5-10 mg 5-10 mg, oral, EVERY 4 HOURS NEEDED, Starting on 04/05/23 at 1831, Until Fri04/07/23 at 2023, Pain, when taking PO 2014 (Given - Provider: Marco Lantigua RN) 0845 (Given - Provider: Janice Mooney RN)1320 (Given - Provider: Andrey Dumont RN)1322 (Given - Provider: Andrey uDmont RN)1725 (Given - Provider: Rachel Mason RN)2150 (Given - Provider: Rachel Mason RN) 0132 (Given - Provider: Leena Madrid RN)0528 (Given - Provider: Leena Madrid RN)0939 (Given - Provider: Aspen Gambino RN)1409 (Given - Provider: Aspen Gambino RN) Linked Groups Order Group 1: acetaminophen [...] NEEDED, Starting on 04/05/23 at 1829, Until Fri04/07/23 at 2023, nausea & vomiting Or ondansetron (ZOFRAN) disintegrating tablet 4-8 mgJump to med 4-8 mg, oral, EVERY 8 HOURS NEEDED, Starting on 04/05/23 at 1829, Until Fri04/07/23 at 2023, nausea & vomiting documented in this encounter 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
--- OUTSIDE RECORDS SUMMARY | 2023-04-11 16:00 | XMS_ITS | Encounter Summary ---
Author Name Unknown Organization [facility] Address [address] [place] [address] Care Team Providers Care Peer Health Promoter Name Role Phone López Faustin MD Primary Care Provider [phone] Reason for Visit * Inpatient Admission (Routine) [...] Expiration Date Visits Re quested Visits Authorized [id number] 1 Encounter Details Date Type Department Care Team (Late st Contact Info) Description 04/01/2023 7:25 AM TDP DISPLAYS ANALYST - 04/01/2023 11:50 AM TDP DISPLAYS ANALYST Surgery [facility] Operating Room [address] [place] [id number] Isai Foss MD [address] [place] [address] L1-5 POSTERIOR FUSION WITH INSTRUMENTATION WITH NEURO [...] drink = 0.6 oz pur e alcohol) [facility] Utilities Answer Date Recorded In [...] Sex Assigned at Female 03/11/2023 11:10 AM TDP DISPLAYS ANALYST Gender Identity Female 03/11/2023 11:10 AM TDP DISPLAYS ANALYST Sexual Orientation Straight 03/11/2023 11 :10 AM TDP DISPLAYS ANALYST documented as of this encounter Last Filed Vital Signs Vital Sign Reading Time Taken Comments Blood Pressure 102/59 04/01/2023 11:45 AM TDP DISPLAYS ANALYST Pulse 65 04/01/2023 11:45 AM TDP DISPLAYS ANALYST Temperature 36.6 ??C (97.9 ??F) 04/01/2023 11:[address] Respiratory Rate 16 04/01/2023 11:45 AM TDP DISPLAYS ANALYST Oxygen Saturation 100% 04/01/2023 11:45 AM TDP DISPLAYS ANALYST Inhaled Oxygen Concentration - - Weight 62.1 kg (137 lb) 03/26/2023 1:50 PM TDP DISPLAYS ANALYST Height 162.6 cm (5' 4) 03/26/2023 1:50 PM TDP DISPLAYS ANALYST Body Mass Index 25.58 04/01/2023 4:45 PM TDP DISPLAYS ANALYST documented in this encounter Discharge Summaries * Trevon Buenrostro PA-C - 04/03/2023 1:00 PM CST HOSPITAL DISCHARGE SUMMARY Patient Name: Michelle Franz Date of : 1945 Age: 77 y.o. Primary Physician: López Faustin MD Admission Date: 04/01/2023 Discharge Date: 04/03/2023 She will be discharged on 04/03/2023 to home PRINCIPAL DISCHARGE DIAGNOSIS: Degeneration of lumbar intervertebral disc [M51.36] Principal Problem: Lumbar radiculopathy PROCEDURES PERFORMED DURING HOSPITALIZATION: Procedure(s): L1-5 POSTERIOR FUSION WITH INSTRUMENTATION WITH NEURO MONITORING (Bilateral) Dr. Isai Foss BRIEF HOSPITAL COURSE: This 77 y.o. female was admitted for was elective spine surgery. The patientunderwent the above procedure without complications. Standard prophylactic antibiotics were administered and the patient received DVT prophylaxis per service protocol. The patient's pain was initially controlled on intravenous pain medications and then weaned to oral medications prior to discharge.The patients pain was well controlled and the patient had met all physical therapy goals prior to discharge. Patient was discharged on a Regular diet and opioid medications for pain control. Discharge in stable condition. She will follow up in approximately 2-4 weeks. PERTINENT FINDINGS/RESULTS AT DISCHARGE: BP 98/74 Pulse 79 Temp 98.1 ??F (36.7 ??C) Resp 16 Ht 5' 4 (1.626 m) Wt 67.6 kg (149 lb 0.5 oz) SpO2 98% BMI 25.58 kg/m?? Surgical/Procedure Site Middle;Lower Back (Active) Incision Date/Incision [...] Ankle Wound Observance : Prior to Admission Latest Laboratory Results: Admission on 04/01/2023 Component Date Value Ref Range Status INR [...] 12.0 - 16.0 gm/dL Final Recent Labs 04/01/23 0646 04/02/23 0728 04/03/23 0700 HEMOGLOBIN 12.4 < > 8.5* HEMATOCRIT 37.3 -- -- < > = values in this interval not displayed. IMPORTANT PENDING TEST RESULTS: None CONDITION AT DISCHARGE: Stabilized DISCHARGE MEDICATIONS: Current Discharge Medication List NEW MEDICATIONS Details hydrOXYzine pamoate (VISTARIL) 25 mg oral capsule Take 1 capsule (25 mg) by mouth every 6 (six) hours as needed. Qty: 12 capsule, Refills: 0 oxyCODONE, immediate release, (ROXICODONE) 5 mg oral tablet Take 1-2 tablets (5- 10 mg) by mouth every 6 (six) hours as needed. Qty: 35 tablet, Refills: 0 senna-docusate (SENNA-S) 8.6-50 mg oral tablet Take 1 tablet by mouth twice a day as needed. Qty: 60 tablet, Refills: 0 tiZANidine (ZANAFLEX) 2 mg oral tablet Take 2 tablets (4 mg) by mouth four times a day. Qty: 20 tablet, Refills: 0 MEDICATIONS CONTINUED UNCHANGED Details amLODIPine [...] tablet (20 mg) by mouth once daily. LORazepam (ATIVAN) 0.5 mg oral tablet Take 2 tablets (1 mg) by mouth at bedtime as needed. medical supply, miscellaneous (ELECTRICAL BONE GROWTH STIMULATOR) Company: [employer] for home use. Qty: 1 each Associated Diagnoses: S/P lumbar fusion pregabalin (LYRICA) 25 mg oral capsule Take 2 capsules (50 mg) by mouth twice a day. !! - Potential duplicate medications found. Please discuss with provider. DISCONTINUED MEDICATIONS acetaminophen (TYLENOL) 500 mg oral tablet Calcium Citrate-Vitamin D3 315 mg-5 mcg (200 unit) oral Tab Cholecalciferol, Vitamin D3, 50 mcg (2,000 unit) oral capsule methocarbamoL (ROBAXIN) 500 mg oral tablet DISCHARGE ORDERS: Discharge Procedure Orders Any questions or concerns Difficulty breating, headache, or visual disturbance Numbness/pain in extremity Severe uncontrolled pain Temperature >101 (38.3 degrees [...] or lying, frequently when there is discomfort. Shower Keep incision clean and dry for 2 days. After the first week, you may gently wash the incision(s) with warm water and mild soap. Use a blotting technique rather than rubbing. Excessive rubbing may open your incision. Do not take tub baths until bran or sutures are removed. Discharge Instructions DRIVING: No driving until seen by your physician. DO NOT drive after taking pain medications or muscle relaxing medication. Dressing Change Remove dressings after 48 hours. Reapply a new dressing if there is drainage. There may be a small amount of drainage for the first few days after surgery. Notify doctor if there is increased drainage, redness or swelling. Dressing Change Steri-Strips: If you have Steri-Strips on your incision(s), they will eventually fall off with washing. If the strips are not off by day fourteen (14) you may remove the strips. Discharge Instructions DIET and BOWEL PROGRAM: Maintain a well balanced diet in order to aid healing. Drink plenty of water. It is important to keep your bowel functioning regularly. Sometimes medications such as stool softeners or suppositories may be needed to help re-establish your bowel program. You may take voxp-[id number]-[id number] stool medications as directed by the package insert. Discharge Instructions PAIN: It is normal to [...] the healing process at the surgical site. Discharge Instructions You may use ice packs 3-4 times daily as needed for 20-30 minutes each time. Diet: Level 7 Regular Liquid: Level 0: Thin Liquids Follow Up Referral Priority: Routine Referred to Provider: LÓPEZ FAUSTIN Number of Visits Requested: 1 Follow Up Referral Priority: Routine Referral Location: [facility] (an affiliate of [facility]) Referred to Provider: [facility] (SPECIAL[facility] IN GENERAL SURG[facility]) Number of Visits Requested: 1 FOLLOW-UP: She should see [facility] for first recheck in 2-4 weeks. Call for appointment if one not already in place. [phone] Option 1 Care Questions [facility] Office: [phone] Total time spent for discharge on date of discharge: 20 minutes. Trevon Buenrostro PA-C [facility] Hospitalist DISPLAYS ANALYST documented in this encounter Medications at Time [...] BONE GROWTH STIMULATOR)Indications: S/P lumbar fusion Company: [employer] - for home use. 1 each 0 [...] of this encounter Progress Notes * Seymour Marvin, RN - 04/03/2023 3:17 PM CST Michelle Franz 1945 [id number] P: Discharge A: Discharged via wheelchair to home at 1513 escorted by assistant food service director I: Discharge information and arrangements included: review of written discharge instructions, review of purpose and side effects of new medication R:Patient expressed understanding of information. DISPLAYS ANALYST * Julius Ann MD - 04/03/2023 11:42 [...] iron pills. Patient would like to buy [id number] iron pills. Hypertension; -Continue THERAPIST PHYSICAL amlodipine and atenolol Chronic pain; Continue Cymbalta [...] DAILY, Bonita Estrada MD, 20 mg at 04/03/23 0811 glucagon, human recombinant (Glucagen) injection (conc: 1 [...] : Prior to Admission Julius Ann MD [facility] Medicine DISPLAYS ANALYST * Larry Carrasco, PT - 04/03/2023 9:37 AM CST Physical Therapy PT orders received and acknowledged. Greeted pt at bedside this morning, pt emotional and reportinghigh pain levels along with distress regarding upcoming discharge. Pt declining PT at this time, reporting she has a walker at home, 3 TIM, and available assist from her daughter who lives very closeby. Cruise Director attempted to encourage pt to participate in evaluation in order to full assess pt's ability to return home safely, pt declined. PT will continue to follow, plan to re-attempt PT evaluationat another time. Larry Carrasco, PT, DPT DISPLAYS ANALYST * Trevon Buenrostro PA-C - 04/03/2023 8:38 [...] Clonus bilateral Trevon Buenrostro PA-C 8:39 AM [facility] Office: [phone] DISPLAYS ANALYST * Daisha Kam RN - 04/03/2023 5:51 [...] I- Invasive Devices: PIVx2, D- Discharge: TBD DISPLAYS ANALYST * Tamy Sosa RN - 04/02/2023 10:30 PM CST [id number] BP soft this shift, 500cc NS Bolus given with improvement. Pt c/o back pain, scheduled tylenol and PRN Oxycodone given. Pt does not want Vistaril. Zanaflex available at 2300. Pt frequently asking forIV dilaudid. Declining scheduled bowel meds. Up to [facility] with LSO and walker Ax1, was able to walk around room SBA without any limitations, gait slow but steady. Needs to wok with PT. Tamy Sosa, RN DISPLAYS ANALYST * Ros Landis MD - 04/02/2023 8:08 PM CST BRIEF CROSS COVER NOTE Paged by bedside nursing regarding hypotension, 91/52, MAP 65. Plan: NS 500mL bolus ordered Ros Landis MD DISPLAYS ANALYST * Seymour Marvin RN - 04/02/2023 4:01 PM CST Med-Surg [...] Home possibly on 04/03. Dtr will transport. DISPLAYS ANALYST * Juanita Levin, PT - 04/02/2023 11:49 [...] third time today. Will attempt again tomorrow. DISPLAYS ANALYST * Julius Ann MD - 04/02/2023 10:49 [...] -Repeat hemoglobin ordered this afternoon. Hypertension; -Continue THERAPIST PHYSICAL amlodipine and atenolol Chronic pain; Continue Cymbalta [...] 1,000 mg, oral, TID, 1,000 mg at 04/02/23807 OR acetaminophen (TYLENOL) rectal suppository 650 mg, 650 mg, Rectal, TID, Nj Thorne PA-C amLODIPine (NORVASC) tablet 10 mg, 10 mg, oral, DAILY, Bonita Estrada MD, 10 mg at 04/02/23807 atenolol (TENORMIN) tablet 25 mg, 25 mg, oral, DAILY, Bonita Estrada MD, 25 mg at 04/02/23807 D50W IV syringe 25-50 mL, 25-50 mL, Intravenous, PRN, Nj Thorne PA-C docusate sodium (COLACE) capsule 200 mg, 200 mg, oral, Twice Daily, Nj Thorne PA-C DULoxetine (CYMBALTA) delayed release capsule 20 mg, 20 mg, oral, DAILY, Bonita Estrada MD, 20 mg at 04/02/23807 DULoxetine (CYMBALTA) delayed release capsule 60 mg, 60 mg, oral, DAILY, Bonita Estrada MD, 60 mg at 04/02/23807 famotidine (PEPCID) tablet 20 mg, 20 mg, oral, DAILY, Bonita Estrada MD, 20 mg at 04/02/23807 glucagon, human recombinant (Glucagen) injection (conc: 1 [...] Q3H PRN, Nj Thorne PA-C, 50 mgat 04/01/232127 naloxone (NARCAN) injection 0.1 mg, 0.1 mg, [...] : Prior to Admission Julius Ann MD [facility] Medicine DISPLAYS ANALYST * Trevon Buenrostro PA-C - 04/02/2023 9:02 [...] Otherwise WNL. Trevon Buenrostro PA-C 12:32 PM [facility] Office: [phone] DISPLAYS ANALYST * Kunal Morrow RN - 04/02/2023 2:48 [...] Invasive Devices: PIVx2, garrett D- Discharge: TBD DISPLAYS ANALYST * Bonita Estrada MD - 04/01/2023 7:37 [...] palpable, no edema. Brisk capillary refill present. Garrett present Results for orders placed or performed [...] DVT prophylaxis: Surgery Disposition: Per surgery Access. [facility] Service DISPLAYS ANALYST * Janice Arriaza RN - 04/01/2023 6:45 [...] to call for help, name of assigned personal care service provider, initialphysician orders, hourly rounding procedures, belongings checklist, unit and plan of care. R. Patient expressed understanding of information.. Janice Arriaza RN DISPLAYS ANALYST * Isaac Buenrostro - 04/01/2023 4:43 PM CST [facility] [phone] Patient seen in room today for fitting of an [place] LSO. Brace was fit, the use and care was covered, Overall fit of the brace after I finished looks good. Patient to follow wearing parameters set by ordering provider. Please reach out with any further questions or concerns. Isaac Ying/KERA Ying/SANJEEV DISPLAYS ANALYST * Jolene Guzmán - 04/01/2023 11:11 AM CST S: Infection/Isolation Review B: Patient with history of MDRO requires isolation to prevent transmission in the healthcare setting A: Patient meets facility clearing protocol for MRSA R: Discontinue Contact Precautions. Manage cares using Standard Precautions. Infection Prevention [id number] DISPLAYS ANALYST documented in this encounter Consult Notes * Mariia Reyes, OT - 04/02/2023 9:50 AM CST Occupational [...] Patient Seen In: Room Family/Caregiver Present: No Highway Engineering Teacher Used?: NA Hearing: Within Functional Limits Lines [...] slip on shoes in figure four stance [facility] set up assist.) FUNCTIONAL MOBILITY Bed Mobility [...] Frame Short term goals target date: 04/02/23 half-way goals target date: 04/02/23 Patient/Family Participation in [...] ADLs and functional transfers. Outcome: Goal Met [facility] Goals Patient will complete ADLs including: feeding, hygiene/grooming, dressing, toileting, with set-up/supervision Outcome: Goal Met DISPLAYS ANALYST documented in this encounter Nursing Notes * Seymour Marvin RN - 04/03/2023 9:12 AM CST Problem: Pain - Acute Goal: Exhibits reduction in pain to an acceptable level of comfort Outcome: Ongoing Problem: Mobility - Impaired Goal: Demonstrates ability to perform physical activity independently or with assistive devices as needed Outcome: Ongoing DISPLAYS ANALYST * Daisha Kam RN - 04/03/2023 1:17 AM CST Problem: Pain - Acute Goal: Exhibits reduction in pain to an acceptable level of comfort Outcome: Met this shift Problem: Respiratory Status - Altered, Actual or Risk of Goal: Exhibits no signs or symptoms of respiratory distress Outcome: Met this shift Problem: Falls/Injury-Risk of Goal: Absence of Falls/Injury Outcome: Met this shift DISPLAYS ANALYST * Seymour Marvin RN - 04/02/2023 3:49 [...] 0851 by Seymour Marvin RN Outcome: Ongoing DISPLAYS ANALYST * Seymour Marvin RN - 04/02/2023 8:51 AM CST Problem: Pain - Acute Goal: Exhibits reduction in pain to an acceptable level of comfort Outcome: Ongoing Problem: Mobility - Impaired Goal: Demonstrates ability to perform physical activity independently or with assistive devices as needed Outcome: Ongoing DISPLAYS ANALYST * Kunal Morrow RN - 04/02/2023 2:48 [...] used to reduce pain sensation Outcome: Ongoing DISPLAYS ANALYST * Janice Arriaza RN - 04/01/2023 6:52 PM CST Problem: Falls/Injury-Risk of Goal: Absence of Falls/Injury Outcome: Met this shift Flowsheets (Taken 04/01/2023 1746) Environmental Safety Interventions: Standard Interventions in Place Fall Risk Light on Outside Patient Room Fall Risk change management consultant Door (NMR) High Risk Armband On (Green Bracelet) Problem: Pain - Acute Goal: Exhibits reduction in pain to an acceptable level of comfort Outcome: Met this shift Problem: Respiratory Status - Altered, Actual or Risk of Goal: Exhibits no signs or symptoms of respiratory distress Outcome: Met this shift DISPLAYS ANALYST * Florian Franz RN - 04/01/2023 4:27 PM CST Pt a/o x 3. VSS sats WNL on RA. Drsg C/D/I. Neros 5/5 denies numbness. In LE. Pain 2-3/10 denies nausea. Report called to RN A7 DISPLAYS ANALYST * Amie Mclaughlin RN - 04/01/2023 11:10 AM CST INfectious disease updated on ot h/o MRSA 12 years ago for follow up DISPLAYS ANALYST documented in this encounter OR Notes * OR Surgeon - Isai Foss MD - 04/01/2023 8:51 AM CST OPERATIVE REPORT Michelle Franz 1945 SURGEON: Isai Foss MD FARMWORKER FRUIT (posterior) STANISLAV Estrada PREOPERATIVE DIAGNOSES: Adult degenerative scoliosis, DDD POSTOPERATIVE DIAGNOSIS: Same PROCEDURES: 1. L1-L5 posterolateral spinal fusion 2. L1-L5 posterior instrumentation 3. Allograft, local autograft placed posterolaterally 4. C-arm for intraoperative level localization and hardware evaluation. ANESTHESIA: General, local. COMPLICATIONS: None. SPECIMENS: None. IMPLANTS: Implant Name Type Inv. Item Serial No. Safety Counselor Lot No. [id number] No. Used Action NMP FIBERS LARGE - [id number] Bone NMP FIBERS LARGE [id number] [employer] N/A 1 Implanted NMP FIBERS LARGE - [id number] Bone NMP FIBERS LARGE [id number] [employer] N/A 1 Implanted NMP FIBERS LARGE - [id number] Bone NMP FIBERS LARGE [id number] [employer] N/A 1 Implanted INFUSE MED - [id number] Prosthetic Implant Non-Specific INFUSE MED Medtronic Sofamor Danek [id number] N/A 1 Implanted CANCELLOUS CHIPS 30CC - [id number] Bone CANCELLOUS CHIPS 30CC [id number] Medtronic Inc N/A 1 Implanted CANCELLOUS CHIPS 60CC - [id number] Bone CANCELLOUS CHIPS 60CC [id number] [employer]onic Inc N/A 1 Implanted CANCELLOUS CHIPS 30CC - [id number] Bone CANCELLOUS CHIPS 30CC [id number] Medtronic Inc N/A 1 Implanted CREO 5.5 [...] the PACU for further cares. Postoperative plan: [place] Standing AP and lateral scoliosis x-rays prior to discharge Avoid significant bending, lifting, twisting for 3 months minimum Stanislav Estrada provided assistance with preoperative positioning, prepping, and draping of the patient. The assistant women's basketball coach provided vital operative assistance with retraction using instruments best providing the necessary exposure and visualization for the case, manipulation of tissues to achieve hemostasis, suction for visualization and assisted in wound closure. Postoperatively they assisted in the transfer of the patient off of the operative table and transition into the post anesthesia care unit with transition of care being made to the anesthesiologist. DISPLAYS ANALYST * Brief Op Note - Nj Thorne [...] procedure was medically necessary for an assistant women's basketball coach because Dr. Foss needed the operative exposure and assistance that I provided. This allowed him to safely and efficiently operate. It was also important that I help ligate blood vessels to maintain hemostasis and reduce the bleeding risk. The assistance that I provided reduced operative time which meant less general anesthetic for the patient. Nj Thorne PA-C DISPLAYS ANALYST documented in this encounter Plan of Treatment Scheduled Referrals Name Type Priority Associated Diagnoses Orde r Schedule Follow Up Follow Up Routine Ordered: 04/02 Follow Up Follow Up Routine Ordered: 04/03 documented as of this encounter Procedures Procedure Name Priority Date/Time Associated Diagnosis Comments HEMOGLOBIN Routine 04/03/2023 7:00 AM TDP DISPLAYS ANALYST HEMOGLOBIN Timed Procedure 04/02/2023 3:26 PM TDP DISPLAYS ANALYST XR SPINE LUMBAR ROUTINE STAT 04/02/2023 10:43 AM TDP DISPLAYS ANALYST EXTRA TUBE-SST (LAB USE ONLY) Routine 04/02/2023 7:28 AM TDP DISPLAYS ANALYST HEMOGLOBIN Routine 04/02/2023 7:28 AM TDP DISPLAYS ANALYST XR C-ARM SPINE STAT 04/01/2023 10:36 AM TDP DISPLAYS ANALYST SPIN BONE AUTOGRFT LOCAL 04/01/2023 7:29 AM TDP DISPLAYS ANALYST Degeneration of lumbar intervertebral disc ALLOGRAFT FOR SPINE SURGERY ONLY MORSELIZED 04/01/2023 7:29 AM TDP DISPLAYS ANALYST Degeneration of lumbar intervertebral disc INSERT VERT FIX DEV,POST,3-6 * 04/01/2023 7:29 AM TDP DISPLAYS ANALYST Degeneration of lumbar intervertebral disc SPINE FUSN,POST TECH,EA ADDNL* 04/01/2023 7:29 AM TDP DISPLAYS ANALYST Degeneration of lumbar intervertebral disc ARTHRODESIS POSTERIOR/POSTEROLAT ERAL LUMBAR 04/01/2023 7:29 AM TDP DISPLAYS ANALYST Degeneration of lumbar intervertebral disc ABORH CONFIRM (LAB USE ONLY) STAT 04/01/2023 6:47 AM TDP DISPLAYS ANALYST TYPE AND SCREEN STAT 04/01/2023 6:46 AM TDP DISPLAYS ANALYST PROTIME/INR STAT 04/01/2023 6:46 AM TDP DISPLAYS ANALYST PARTIAL THROMBOPLASTIN TIME STAT 04/01/2023 6:46 AM TDP DISPLAYS ANALYST HEMOGLOBIN STAT 04/01/2023 6:46 AM TDP DISPLAYS ANALYST HEMATOCRIT STAT 04/01/2023 6:46 AM TDP DISPLAYS ANALYST POCT GLU METER STAT 04/01/2023 6:12 AM TDP DISPLAYS ANALYST documented in this encounter Results * (ABNORMAL) Hemoglobin (04/03/2023 7:00 AM TDP DISPLAYS ANALYST) Only the most recent of4 resultswithin the time period is included. Hemoglobin 8.5(L) 12.0 - 16.0 gm/dL 04/03/2023 7:25 AM TDP DISPLAYS ANALYST [facility] Blood 04/03/2023 7:00 AM TDP DISPLAYS ANALYST 04/03/2023 7:17 AM TDP DISPLAYS ANALYST Nj Thorne PA-C HEMATOLOGY ORDERA BLE Performing Organization Address City/State/[facility] Co de Phone Number [facility] [address] [place] [address] * XR SPINE LUMBAR ROUTINE (04/02/2023 10:43 AM TDP DISPLAYS ANALYST) Anatomical Region Laterality Modality Spine Computed Radiogr aphy 04/02/2023 11:2 7 AM TDP DISPLAYS ANALYST Impressions 04/02/2023 11:29 AM TDP DISPLAYS ANALYST IMPRESSION: 1. Operative changes of posterior danny and pedicle screw fixation L1-L5 with posterolateral bone graft material, grossly negative for postoperative purposes. Lumbar vertebral body alignment described in more detail above. 2. Old superior and inferior pubic rami fractures. REPORT SIGNED BY Janice Talavera M.D. Narrative 04/02/2023 11:29 AM TDP DISPLAYS ANALYST EXAM: ??XR SPINE LUMBAR ROUTINE DATE: 04/02/2023 [...] Tube-SST (Lab Use Only) (04/02/2023 7:28 AM TDP DISPLAYS ANALYST) Blood 04/02/2023 7:28 AM TDP DISPLAYS ANALYST 04/02/2023 7:53 AM TDP DISPLAYS ANALYST Bonita Estrada MD CHEMISTRY ORDERABLE [facility] [address] [place] [address] * XR C-ARM SPINE (04/01/2023 10:36 AM TDP DISPLAYS ANALYST) Anatomical Region Laterality Modality Computed Radiogr aphy 04/01/2023 12:3 5 PM TDP DISPLAYS ANALYST Impressions 04/01/2023 12:37 PM TDP DISPLAYS ANALYST IMPRESSION: 1. ??Procedural assistance. REPORT SIGNED BY DR. MARCUS JUNE Narrative 04/01/2023 12:37 PM TDP DISPLAYS ANALYST EXAM: ??XR C-ARM SPINE DATE: ?? 04/01/2023 [...] Confirm (Lab Use Only) (04/01/2023 6:47 AM TDP DISPLAYS ANALYST) Group and Rh O Positive 04/01/2023 9:09 AM TDP DISPLAYS ANALYST [facility] Blood 04/01/2023 6:47 AM TDP DISPLAYS ANALYST 04/01/2023 7:26 AM TDP DISPLAYS ANALYST Nj Thorne REJI BLOOD BANK ORDERA BLE Performing Organization Address City/[facility]/ZIP Co de Phone Number [employer] [facility] [address] [place] [address] [facility] [address] [place] [address] * Hematocrit (04/01/2023 6:46 AM TDP DISPLAYS ANALYST) Hematocrit 37.3 36.0 - 48.0 % 04/01/2023 7:07 AM TDP DISPLAYS ANALYST [facility] Blood 04/01/2023 6:46 AM TDP DISPLAYS ANALYST 04/01/2023 6:50 AM TDP DISPLAYS ANALYST Nj Ying Fadumo MENDOZA HEMATOLOGY ORDERA BLE Performing Organization Address City/[facility]/ZIP Co de Phone Number [facility] [address] [place] [address] * Type and Screen (04/01/2023 6:46 AM TDP DISPLAYS ANALYST) Group and Rh O Positive 04/01/2023 7:39 AM TDP DISPLAYS ANALYST [facility] Antibody Screen Negative 04/01/2023 7:39 AM TDP DISPLAYS ANALYST [facility] Blood 04/01/2023 6:46 AM TDP DISPLAYS ANALYST 04/01/2023 6:50 AM TDP DISPLAYS ANALYST Nj Ying Fadumo MENDOZA BLOOD BANK ORDERA BLE Performing Organization Address City/[facility]/ZIP Co de Phone Number [facility] [address] [facility] [address] [facility] [address] [place] [address] * Partial Thromboplastin Time (04/01/2023 6:46 AM TDP DISPLAYS ANALYST) PTT 28.8 24.0 - 31.0 SEC. 04/01/2023 7:06 AM [facility] Blood 04/01/2023 6:46 AM TDP DISPLAYS ANALYST 04/01/2023 6:50 AM TDP DISPLAYS ANALYST [facility] - 04/01/2023 7:06 AM TDP DISPLAYS ANALYST aPTT Therapeutic Reference Ranges: Argatroban protocol: 60 - 85 seconds Bivalirudin protocol: 43 - 71 seconds Nj Thorne PA-C COAGULATION ORDER ABLE Performing Organization Address City/[facility]/ZIP Co de Phone Number [facility] [address] [place] [phone] * Protime/INR (04/01/2023 6:46 AM TDP DISPLAYS ANALYST) INR 1.0 0.9 - 1.2 04/01/2023 7:06 AM [facility] Blood 04/01/2023 6:46 AM TDP DISPLAYS ANALYST 04/01/2023 6:50 AM TDP DISPLAYS ANALYST Nj Thorne PA-C COAGULATION ORDER ABLE Performing Organization Address [facility] Co de Phone Number [facility] [address] [place] [address] * (ABNORMAL) POCT Glucose Meter (04/01/2023 6:12 AM TDP DISPLAYS ANALYST) GLUCOSE WB METER 105(H) 60 - 100 mg/dL 04/01/2023 6:38 AM [facility] Blood 04/01/2023 6:12 AM TDP DISPLAYS ANALYST 04/01/2023 6:38 AM TDP DISPLAYS ANALYST Isai Foss MD LAB POINT OF CARE TE ST RESULTS Performing Organization Address City/[facility]/ZIP Co de Phone Number [facility] [address] [place] [phone] documented in this encounter Visit Diagnoses Diagnosis [...] Until Discontinued, Post-Op Given 04/03/2023 1:15 PM TDP DISPLAYS ANALYST 1,000 mg Given 04/03/2023 8:12 AM TDP DISPLAYS ANALYST 1,000 mg Given 04/02/2023 10:15 PM TDP DISPLAYS ANALYST 1,000 mg amLODIPine (NORVASC) tablet 10 mg 10 mg, oral, DAILY, First dose on Fri04/02/23 at 0800, Until Discontinued Given 04/03/2023 8:11 AM TDP DISPLAYS ANALYST 10 mg Given 04/02/2023 8:08 AM TDP DISPLAYS ANALYST 10 mg atenolol (TENORMIN) tablet 25 mg 25 mg, oral, DAILY, First dose on Fri04/02/23 at 0800, Until Discontinued Given 04/03/2023 8:11 AM TDP DISPLAYS ANALYST 25 mg Given 04/02/2023 8:08 AM TDP DISPLAYS ANALYST 25 mg BUPivacaine 0.25%-EPINEPHrine 1:200,000 (PF) (SENSORCAINE) injection INTRA-PROCEDURE NEEDED, Starting on Fri04/01/23 at 0928, Until Fri04/01/23 at 1119, Intra-Op Given 04/01/2023 8:55 AM TDP DISPLAYS ANALYST 50 mL Procedural D50W IV syringe 25-50 [...] 2030, Until Discontinued Given 04/02/2023 7:57 PM TDP DISPLAYS ANALYST 20 mg Given 04/01/2023 8:12 PM TDP DISPLAYS ANALYST 20 mg DULoxetine (CYMBALTA) delayed release capsule 60 mg 60 mg, oral, DAILY, First dose on Fri04/01/23 at 2030, Until Discontinued Given 04/02/2023 7:57 PM TDP DISPLAYS ANALYST 60 mg Given 04/01/2023 8:11 PM TDP DISPLAYS ANALYST 60 mg famotidine (PEPCID) tablet 20 mg 20 mg, oral, DAILY, First dose on Fri04/01/23 at 2030, Until Discontinued Given 04/03/2023 8:11 AM TDP DISPLAYS ANALYST 20 mg Given 04/02/2023 8:08 AM TDP DISPLAYS ANALYST 20 mg Given 04/01/2023 8:11 PM TDP DISPLAYS ANALYST 20 mg glucagon, human recombinant (Glucagen) injection [...] effective or tolerated Given 04/02/2023 11:04 PM TDP DISPLAYS ANALYST 0.5 mg Given 04/02/2023 5:37 PM TDP DISPLAYS ANALYST 0.5 mg Given 04/02/2023 1:21 PM TDP DISPLAYS ANALYST 0.5 mg hydrOXYzine HCl (VISTARIL) injection 50 [...] control of analgesics Given 04/03/2023 2:37 AM TDP DISPLAYS ANALYST 50 mg Given 04/01/2023 9:28 PM TDP DISPLAYS ANALYST 50 mg naloxone (NARCAN) injection 0.1 mg 0.1 mg, Intravenous, EVERY 1 MINUTE PRN, Starting on Fri04/01/23 at 1109, Until Khloe 04/03/23 at 2133, Post-Op, Opiate Reversal ondansetron (ZOFRAN) disintegrating tablet 4 mg 4 mg, oral, EVERY 8 HOURS NEEDED, Starting on Fri04/01/23 at 1109, Until Khloe 04/03/23 at 2133, Post-Op, nausea & vomiting Given 04/03/2023 2:40 AM TDP DISPLAYS ANALYST 4 mg ondansetron (ZOFRAN) injection 4 mg 4 mg, Intravenous, EVERY 8 HOURS NEEDED, Starting on Fri04/01/23 at 1109, Until Khloe 04/03/23 at 2133, Post-Op, nausea & vomiting oxyCODONE (immediate release) (ROXICODONE) tablet 5-10 mg 5-10 mg, oral, EVERY 4 HOURS NEEDED, Starting on Fri04/01/23 at 1109, Until Khloe 04/03/23 at 2133, Post-Op, Pain, when taking PO Given 04/03/2023 2: 30 PM TDP DISPLAYS ANALYST 5 mg Given 04/03/2023 10:23 AM TDP DISPLAYS ANALYST 10 mg Given 04/03/2023 6:44 AM TDP DISPLAYS ANALYST 10 mg potassium chloride 20 mEq in D5W-NS IV infusion 1000 mL at 50 mL/hr, Intravenous, CONTINUOUS, Starting on Fri04/01/23 at 1115, Until Khloe 04/03/23 at 2133, Post-Op New Bag 04/01/2023 8:22 PM TDP DISPLAYS ANALYST 50 mL/hr prochlorperazine (COMPAZINE) injection 10 mg [...] at 2133, Spasticity Given 04/03/2023 10:23 AM TDP DISPLAYS ANALYST 4 mg Given 04/02/2023 4:45 PM TDP DISPLAYS ANALYST 4 mg Given 04/02/2023 8:07 AM TDP DISPLAYS ANALYST 4 mg documented in this encounter Active and Recently Administered Medications Times are shown in TDP DISPLAYS ANALYST. Scheduled Medication Order 04/01/2023 04/02/2023 04/03/2023 acetaminophen (TYLENOL) rectal suppository 650 mg(Linked Group 1) 650 mg, Rectal, THREE TIMES A DAY, First dose on Fri04/01/23 at 1400, Until Discontinued, Post-Op 1400 (See Alternative - Provider: Florian Franz RN)2127 (See Alternative - Provider: Kunal Morrow RN) 0808 (See Alternative - Provider: Seymour Marvin RN)1321 [...] OR)2127 (Given - Provider: Kunal Morrow RN) 0808 (Given - Provider: Seymour Marvin RN)1321 (Given - Provider: Seymour Marvin RN)2215 (Given - Provider: Tamy Sosa, ANGELES) 0812 (Given - Provider: Seymour Marvin RN)1315 (Given - Provider: Seymour Marvin RN) amLODIPine (NORVASC) tablet 10 mg 10 mg, oral, DAILY, First dose on Fri04/02/23 at 0800, Until Discontinued 08 (Given - Provider: Seymour Marvin RN) 08 (Given - Provider: Seymour Marvin RN) atenolol (TENORMIN) tablet 25 mg 25 mg, oral, DAILY, First dose on Fri04/02/23 at 0800, Until Discontinued 08 (Given - Provider: Seymour Marvin RN) 08 (Given - Provider: Seymour Marvin RN) ceFAZolin [...] injection 10 mg (COMPLETED) 10 mg, Intravenous, SPA EXPERIENCE COORDINATOR TO OR, 1 dose, Starting on Fri04/01/23 at 0553, Until Discontinued, Intra-Op 0835 (Given - Provider: Monika Ireland APRN, JUNIOR HIGH SCHOOL PRINCIPAL) docusate sodium (COLACE) capsule 200 mg 200 mg, oral, TWICE A DAY, First dose on Fri04/01/23 at 2000, Until Discontinued, Post-Op 1999 (Declined - Provider: Kunal Morrow RN) 0800 (Declined - Provider: Seymour Marvin RN)1956 (Declined - Provider: Tamy Sosa, ANGELES) 0800 (Declined - Provider: Seymour Marvin RN) [...] Morrow RN) 0808 (Not Given - Provider: Seymuor Marvin RN - Reason: Clinically appropriate (comment) [...] Intravenous, ONCE, 1 dose, On Fri04/02/23 at 2014, Administer over 61 Minutes 2036 (New Bag - Provider: Tamy Sosa RN)2137 (Stopped - Provider: Daisha Kam, RN)2138 (Stopped - Provider: Daisha Kam, RN) vancomycin ( VANCOCIN ) 1000 mg [...] 1 1115 (Restarted - Provider: Florian Franz RN) phenylephrine (TREVER-SYNEPHRINE) 32 mg in sodium chloride [...] (New Bag - Provider: Monika Ireland APRN, JUNIOR HIGH SCHOOL PRINCIPAL)0932 (Rate Change - Provider: Monika Ireland APRN, JUNIOR HIGH SCHOOL PRINCIPAL)1014 (Rate Change - Provider: Monika Ireland APRN, JUNIOR HIGH SCHOOL PRINCIPAL)1106 (Rate Change - Provider: Monika Ireland APRN, JUNIOR HIGH SCHOOL PRINCIPAL)1108 (Stopped - Provider: Monika Ireland APRN, JUNIOR HIGH SCHOOL PRINCIPAL) potassium chloride 20 mEq in D5W-NS IV [...] doses, Starting on Fri04/01/23 at 1107, Until Tu04/01/23 at 1642, Phase 1/2, for nausea unrelieved [...] RN) 0237 (Given - Provider: Daisha Kam, RN) naloxone (NARCAN) injection 0.1 mg 0.1 mg, Intravenous, EVERY 1 MINUTE PRN, Starting on Fri04/01/23 at 1109, Until Khloe 04/03/23 at 2133, Post-Op, Opiate Reversal ondansetron (ZOFRAN) disintegrating tablet 4 mg(Linked Group 3) 4 mg, oral, EVERY 8 HOURS NEEDED, Starting on Fri04/01/23 at 1109, Until Khloe 04/03/23 at 2133, Post-Op, nausea & vomiting 0240 (Given - Provider: Daisha Kam, RN) ondansetron (ZOFRAN) injection 4 mg(Linked Group 3) 4 mg, Intravenous, EVERY 8 HOURS NEEDED, Starting on Fri04/01/23 at 1109, Until Khloe 04/03/23 at 2133, Post-Op, nausea & vomiting 0240 [...] PO 2010 (Given - Provider: Kunal Morrow RN)2123 (Given - Provider: Kunal Morrow RN) 0611 (Given - Provider: Kunal Morrow RN)1020 (Given - Provider: Semyour Marvin, ANGELES)1421 (Given - Provider: Seymour Marvin, ANGELES)1832 (Given - Provider: Seymour Marvin RN)2215 (Given - Provider: Tamy E Sosa, RN) 0237 (Given - Provider: Daisha Kam [...] Prevention 04/01/23 04/01/2023 04/01/2023 04/01/2023 11:11 AM TDP DISPLAYS ANALYST documented as of this encounter Care Teams Peer Health Promoter Relationship Specialty Start Date End Date Ló[place] [address] [address] [place] [address] PCP - General Internal Medicine 03/12/23 04/01/23 documented as of this encounter
--- OUTSIDE RECORDS SUMMARY | 2023-04-11 16:00 | XMS_ITS | Encounter Summary ---
Author Name Unknown Organization [facility] Address [address] [place] [address] Care Team Providers Care Research Dairy Farm Supervisor Name Role Phone Carolynn Alvarado MD Primary Care Provider [phone] Encounter Details Date Type Department Care Team (Latest Contact Info) Description 03/26/2023 Travel Social History Tobacco Use Types Packs/Day Years Used Date Smoking Tobacco: Never Smokeless Tobacco: Never Alcohol Use Standard Drinks/Week Comments Never 0 (1 standard drink = 0.6 oz pur e alcohol) Sex and Gender Information Value Date Recorded Sex Assigned at Female 03/11/2023 11:10 AM VERIFIER OPERATOR Gender Identity Female 03/11/2023 11:10 AM VERIFIER OPERATOR Sexual Orientation Straight 03/11/2023 11 :10 AM VERIFIER OPERATOR documented as of this encounter Plan of Treatment Not on file documented as of this encounter Visit Diagnoses Not on filedocumented in this encounter Care Teams Research Dairy Farm Supervisor Relationship Specialty [place] [address] [address] [place] [address] PCP - General Internal Medicine 03/12/23 04/01/23 documented as of this encounter
--- OUTSIDE RECORDS SUMMARY | 2023-04-11 16:00 | XMS_ITS | Encounter Summary ---
Author Name Unknown Organization [facility] Address [address] [place] [address] Care Team Providers Care Malware Analyst Name Role Phone Carolynn Alvarado MD Primary Care Provider [phone] Encounter Details Date Type Department Care Team (Latest Contact Info) Description 04/01/2023 Travel Social History Tobacco Use Types Packs/Day Years Used Date Smoking Tobacco: Never Smokeless Tobacco: Never Alcohol Use Standard Drinks/Week Comments Never 0 (1 standard drink = 0.6 oz pur e alcohol) [facility] Utilities Answer Date Recorded In the past 12 months has e [employer], gas, oil, or water [employer] threatened to shut off services in your [...] Sex Assigned at Female 03/11/2023 11:10 AM MEDICAL CLERK Gender Identity Female 03/11/2023 11:10 AM MEDICAL CLERK Sexual Orientation Straight 03/11/2023 11 :10 AM MEDICAL CLERK documented as of this encounter Plan of Treatment Not on file documented as of this encounter Visit Diagnoses Not on filedocumented in this encounter Additional Health Concerns Infection Onset Date Last Indicated Resolved Time MRSA Comment:CLEARED by Infection Prevention 04/01/23 04/01/2023 04/01/2023 04/01/2023 11:11 AM MEDICAL CLERK documented as of this encounter Care Teams Malware Analyst Relationship Specialty [place] [address] [place] [address] PCP - General Internal Medicine 03/12/23 04/01/23 documented as of this encounter
--- OUTSIDE RECORDS SUMMARY | 2023-04-11 16:00 | XMS_ITS | Encounter Summary ---
Author Name Unknown Organization [facility] Address [address] [place] [address] [place] [address] Care Team Providers Care Lobby Concierge Name Role Phone Carolynn Alvarado MD Primary Care Provider [phone] Carolynn Alvarado MD Primary Care Provider [phone] [facility] Unavailable Encounter Details Date Type Department Care Team (Late st Contact Info) Description 03/28/2023 Prep For Procedure NMR PROVIDER [address] [place], [place] [address] [address] Nj Thorne, PAYogiC [address] [id number] Social History Tobacco Use Types Packs/Day Years Used Date Smoking Tobacco: Never Smokeless Tobacco: Never Alcohol Use Standard Drinks/Week Comments Never 0 (1 standard drink = 0.6 oz pur e alcohol) [facility] Utilities Answer Date Recorded In the past 12 months has [facility] [employer], gas, oil, or water [employer] threatened to shut off services in your [...] slept in a [facility] (including now)? No 04/01/2023 Sex and Gender Information Value Date Recorded Sex Assigned at Female 03/11/2023 11:10 AM FORGE HAND Gender Identity Female 03/11/2023 11:10 AM FORGE HAND Sexual Orientation Straight 03/11/2023 11 :10 AM FORGE HAND documented as of this encounter Plan of Treatment Not on file documented as of this encounter Visit Diagnoses Not on filedocumented in this encounter Additional Health Concerns Infection Onset Date Last Indicated Resolved Time MRSA Comment:CLEARED by Infection Prevention 04/01/23 04/01/2023 04/01/2023 04/01/2023 11:11 AM FORGE HAND documented as of this encounter Care Teams Lobby Concierge Relationship Specialty [place] [address] [address] [place] [address] PCP - General Internal Medicine 03/12/23 04/01/23 [place] [address] [address] [place] [address] PCP - General Internal Medicine 04/02/23 Clinic, [facility] [address] [address] [id number] PCP - Primary Care Clinic 04/02/23 documented as of this encounter
--- OUTSIDE RECORDS SUMMARY | 2023-04-11 16:00 | XMS_ITS | Encounter Summary ---
Author Name Unknown Organization [facility] Address [address] [place] [address] Care Team Providers Care Toll Settlement Clerk Name Role Phone Carolynn Alvarado MD Primary Care Provider [phone] Encounter Details Date Type Department Care Team (Latest Contact Info) Description 03/12/2023 Travel Social History Tobacco Use Types Packs/Day Years Used Date Smoking Tobacco: Never Assessed Sex and Gender Information Value Date Recorded Sex Assigned at Female 03/11/2023 11:10 AM BOOTH OPERATOR Gender Identity Female 03/11/2023 11:10 AM BOOTH OPERATOR Sexual Orientation Straight 03/11/2023 11 :10 AM BOOTH OPERATOR documented as of this encounter Plan of Treatment Not on file documented as of this encounter Visit Diagnoses Not on filedocumented in this encounter Care Teams Toll Settlement Clerk Relationship Specialty [place] [address] [address] [place] [address] PCP - General Internal Medicine 03/12/23 04/01/23 documented as of this encounter
--- OUTSIDE RECORDS SUMMARY | 2023-04-11 16:00 | XMS_ITS | Encounter Summary ---
Author Name Unknown Organization [facility] Address [address] [place] [address] Care Team Providers Care Advertiser Name Role Phone López Faustin MD Primary Care Provider [phone] López Faustin MD Primary Care Provider [phone] [facility] Unavailable Reason for Referral * (Routine) - Open Specialty Diagnoses / Procedures Referred By Contac t Referred To Contact Procedures Diet: Level 7 Regular Trevon Buenrostro PA-C [address] [address] Referral ID Status Reason Start Date Expiration Date Visits Re quested Visits Authorized [id number] Open 04/03/2023 1 1 OR WEB DESIGNER * (Routine) - Open Specialty Diagnoses / Procedures Referred By Contac t Referred To Contact Procedures Discharge Instructions Trevon Buenrostro PA-C [address] [address] Referral ID Status Reason Start Date Expiration Date Visits Re quested Visits Authorized [id number] Open 04/03/2023 1 1 OR WEB DESIGNER * (Routine) - Open Specialty Diagnoses / Procedures Referred By Contac t Referred To Contact Procedures Discharge Instructions Trevon Buenrostro PA-C [address] [address] Referral ID Status Reason Start Date Expiration Date Visits Re quested Visits Authorized [id number] Open 04/03/2023 1 1 OR WEB DESIGNER * (Routine) - Open Specialty Diagnoses / Procedures Referred By Contac t Referred To Contact Procedures Discharge Instructions Trevon Buenrostro PA-C [address] [address] Referral ID Status Reason Start Date Expiration Date Visits Re quested Visits Authorized [id number] Open 04/03/2023 1 1 OR WEB DESIGNER * (Routine) - Open Specialty Diagnoses / Procedures Referred By Contac t Referred To Contact Procedures Dressing Change Trevon Buenrostro PA-C [address] [address] Referral ID Status Reason Start Date Expiration Date Visits Re quested Visits Authorized [id number] Open 04/03/2023 1 1 OR WEB DESIGNER * (Routine) - Open Specialty Diagnoses / Procedures Referred By Contac t Referred To Contact Procedures Dressing Change rTevon Buenrostro PA-C [address] [address] Referral ID Status Reason Start Date Expiration Date Visits Re quested Visits Authorized [id number] Open 04/03/2023 1 1 OR WEB DESIGNER * (Routine) - Open Specialty Diagnoses / Procedures Referred By Contac t Referred To Contact Procedures Discharge Instructions Trevon Buenrostro PA-C [address] [address] Referral ID Status Reason Start Date Expiration Date Visits Re quested Visits Authorized [id number] Open 04/03/2023 1 1 OR WEB DESIGNER * (Routine) - Open Specialty Diagnoses / Procedures Referred By Contac t Referred To Contact Procedures Shower Trevon Buenrostro PA-C [address] [address] Referral ID Status Reason Start Date Expiration Date Visits Re quested Visits Authorized [id number] Open 04/03/2023 1 1 OR WEB DESIGNER * (Routine) - Open Specialty Diagnoses / Procedures Referred By Contac t Referred To Contact Procedures Discharge Instructions Trevon Buenrostro PA-C [address] [address] Referral ID Status Reason Start Date Expiration Date Visits Re quested Visits Authorized [id number] Open 04/03/2023 1 1 OR WEB DESIGNER * (Routine) - Open Specialty Diagnoses / Procedures Referred By Contac t Referred To Contact Procedures Activity as tolerated Trevon Buenrostro PA-C [address] [address] Referral ID Status Reason Start Date Expiration Date Visits Re quested Visits Authorized [id number] Open 04/03/2023 1 1 OR WEB DESIGNER * (Routine) - Open Specialty Diagnoses / Procedures Referred By Contac t Referred To Contact Trevon Buenrostro PA-C [address] [address] Surgery), [facility] [place] ([facility] [address] [place] [place] [address] Referral ID Status Reason Start Date Expiration Date Visits Re quested Visits Authorized [id number] Open 04/03/2023 1 1 Question Answer Instructions to follow-up provider f/u appt, patient had difficult pain mgmt in hospital Comments Return to clinic in 3 weeks for post op visit OR WEB DESIGNER * (Routine) - Open Specialty Diagnoses / Procedures Referred By Contac t Referred To Contact Procedures Temperature >101 (38.3 degrees Celsius) Trevon Buenrostro PA-C [address] [place] [address] Referral ID Status Reason Start Date Expiration Date Visits Re quested Visits Authorized [id number] Open 04/03/2023 1 1 OR WEB DESIGNER * (Routine) - Open Specialty Diagnoses / Procedures Referred By Contac t Referred To Contact Procedures Severe uncontrolled pain Trevon Buenrostro PA-C [address] [address] Referral ID Status Reason Start Date Expiration Date Visits Re quested Visits Authorized [id number] Open 04/03/2023 1 1 OR WEB DESIGNER * (Routine) - Open Specialty Diagnoses / Procedures Referred By Contac t Referred To Contact Procedures Numbness/pain in extremity Trevon Buenrostro PA-C [address] [address] Referral ID Status Reason Start Date Expiration Date Visits Re quested Visits Authorized [id number] Open 04/03/2023 1 1 OR WEB DESIGNER * (Routine) - Open Specialty Diagnoses / Procedures Referred By Contac t Referred To Contact Procedures Difficulty breating, headache, or visual disturbance Trevon Buenrostro PA-C [address] [place] [address] Referral ID Status Reason Start Date Expiration Date Visits Re quested Visits Authorized [id number] Open 04/03/2023 1 1 OR WEB DESIGNER * (Routine) - Open Specialty Diagnoses / Procedures Referred By Contac t Referred To Contact Procedures Any questions or concerns Trevon Buenrostro PA-C [address] [place] [address] Referral ID Status Reason Start Date Expiration Date Visits Re quested Visits Authorized [id number] Open 04/03/2023 1 1 OR WEB DESIGNER * (Routine) - Open Specialty Diagnoses / Procedures Referred By Contac t Referred To Contact Julius Ann MD [address] [place] [address] Ló[place] [address] [place] [address] Referral ID Status Reason Start Date Expiration Date Visits Re quested Visits Authorized [id number] Open 04/02/2023 1 1 Question Answer Specify time frame for follow up? 1 Week Instructions to follow-up provider Hospital discharge follow up OR WEB DESIGNER Reason for Visit * Inpatient Admission (Routine) [...] Expiration Date Visits Re quested Visits Authorized [id number] 1 1 Encounter Details Date Type Department Care Team (Latest Contact Info) Description 04/01/2023 5:52 AM JUNIOR WEB DESIGNER - 04/03/2023 3:20 PM JUNIOR WEB DESIGNER Hospital Encounter [id number] [facility] [place], [place] [address] Isai Foss MD [address] [address] [place] [address] Lumbar radiculopathy Discharge Disposition: Returning Home/Self Care Social History Tobacco Use Types Packs/Day Years Used Date Smoking Tobacco: Never Smokeless Tobacco: Never Tobacco Cessation:Counseling Given: Not Answered Alcohol Use Standard Drinks/Week Comments Never 0 (1 standard drink = 0.6 oz pur e alcohol) [facility] Utilities Answer Date Recorded In the past 12 months has th e [employer], oil, or water [employer] threatened to shut off services in your [...] place to sleep or slept in a fci (including now)? No 04/01/2023 Sex and Gender Information Value Date Recorded Sex Assigned at Female 03/11/2023 11:10 AM JUNIOR WEB DESIGNER Gender Identity Female 03/11/2023 11:10 AM JUNIOR WEB DESIGNER Sexual Orientation Straight 03/11/2023 11 :10 AM JUNIOR WEB DESIGNER documented as of this encounter Last Filed Vital Signs Vital Sign Reading Time Taken Comments Blood Pressure 99/59 04/03/2023 2:30 PM JUNIOR WEB DESIGNER Pulse 81 04/03/2023 2:30 PM JUNIOR WEB DESIGNER Temperature 36.8 ??C (98.3 ??F) 04/03/2023 2:30 PM CS T Respiratory Rate 18 04/03/2023 2:30 PM JUNIOR WEB DESIGNER Oxygen Saturation 96% 04/03/2023 2:30 PM JUNIOR WEB DESIGNER Inhaled Oxygen Concentration - - Weight 67.6 kg (149 lb 0.5 oz) 04/01/2023 4:45 P M JUNIOR WEB DESIGNER Height 162.6 cm (5' 4) 04/01/2023 4:45 PM JUNIOR WEB DESIGNER Body Mass Index 25.58 04/01/2023 4:45 PM JUNIOR WEB DESIGNER documented in this encounter Discharge Summaries * [...] supply, miscellaneous (ELECTRICAL BONE GROWTH STIMULATOR) Company: [employer] - for home use. Qty: 1 each [...] re-establish your bowel program. You may take kcuj-nte-ybpbvnk stool medications as directed by the package [...] Follow Up Referral Priority: Routine Referral Location: [facility] (an affiliate of [facility]) Referred to Provider: [facility] (SPECIALISTS IN GENERAL SURGERY) Number of Visits Requested: 1 FOLLOW-UP: She should see [facility] for first recheck in 2-4 weeks. Call for appointment if one not already in place. [phone] Option 1 Care Questions [facility] Office: [phone] Total time spent for discharge on date of discharge: 20 minutes. Trevon Buenrostro PA-C [facility] Sp[facility] Hospitalist OR WEB DESIGNER documented in this encounter Medications at Time [...] BONE GROWTH STIMULATOR)Indications: S/P lumbar fusion Company: [employer] - for home use. 1 each 0 [...] 04/03/2023 3:17 PM CST Michelle Franz 1945 [id number] P: Discharge A: Discharged via wheelchair to home at 1513 escorted by nursing assistants teacher I: Discharge information and arrangements included: review of written discharge instructions, review of purpose and side effects of new medication R:Patient expressed understanding of information. OR WEB DESIGNER * Julius Ann MD - 04/03/2023 11:42 [...] iron pills. Patient would like to buy jfvi-cyp-adswjox iron pills. Hypertension; -Continue OLEO HASHER AND RENDERER amlodipine and atenolol Chronic pain; Continue Cymbalta [...] Bonita Estrada MD, 10 mg at 04/03/23 0811 atenolol (TENORMIN) tablet 25 mg, 25 mg, oral, DAILY, Bonita Estrada MD, 25 mg at 04/03/23 0811 D50W IV syringe 25-50 mL, 25-50 mL, Intravenous, PRN, Nj Thorne PA-C docusate sodium (COLACE) capsule 200 mg, 200 mg, oral, Twice Daily, Nj Thorne PA-C DULoxetine (CYMBALTA) delayed release capsule 20 mg, 20 mg, oral, DAILY, oBnita Estrada MD, 20 mg at 04/02/231956 DULoxetine [...] : Prior to Admission Julius Ann MD [facility] Medicine OR WEB DESIGNER * Larry Carrasco, PT - 04/03/2023 9:37 AM CST Physical Therapy PT orders received and acknowledged. Greeted pt at bedside this morning, pt emotional and reportinghigh pain levels along with distress regarding upcoming discharge. Pt declining PT at this time, reporting she has a walker at home, 3 TIM, and available assist from her daughter who lives very closeby. Quality Supervisor attempted to encourage pt to participate in evaluation in order to full assess pt's ability to return home safely, pt declined. PT will continue to follow, plan to re-attempt PT evaluationat another time. Larry Carrasco, PT, DPT OR WEB DESIGNER * Trevon Buenrostro PA-C - 04/03/2023 8:38 [...] Babinski's bilateral no Ankle Clonus bilateral Trevon Buenrosrto PA-C 8:39 AM [facility] Office: [phone] OR WEB DESIGNER * Daisha Kam RN - 04/03/2023 5:51 [...] I- Invasive Devices: PIVx2, D- Discharge: TBD OR WEB DESIGNER * Tamy Sosa RN - 04/02/2023 10:30 PM CST 1200-5397 BP soft this shift, 500cc NS Bolus given with improvement. Pt c/o back pain, scheduled tylenol and PRN Oxycodone given. Pt does not want Vistaril. Zanaflex available at 2300. Pt frequently asking forIV dilaudid. Declining scheduled bowel meds. Up to [facility] [place] and walker Ax1, was able to walk around room SBA without any limitations, gait slow but steady. Needs to wok with PT. Tamy Sosa, RN OR WEB DESIGNER * Ros Landis MD - 04/02/2023 8:08 PM CST BRIEF CROSS COVER NOTE Paged by bedside nursing regarding hypotension, 91/52, MAP 65. Plan: NS 500mL bolus ordered Ros Landis MD OR WEB DESIGNER * Seymour Marvin RN - 04/02/2023 4:01 [...] Home possibly on 04/03. Dtr will transport. OR WEB DESIGNER * Juanita Levin, PT - 04/02/2023 11:49 [...] third time today. Will attempt again tomorrow. OR WEB DESIGNER * Julius Ann MD - 04/02/2023 10:49 [...] -Repeat hemoglobin ordered this afternoon. Hypertension; -Continue OLEO HASHER AND RENDERER amlodipine and atenolol Chronic pain; Continue Cymbalta [...] mg, oral, TID, 1,000 mg at 04/02/23 08 OR acetaminophen (TYLENOL) rectal suppository 650 mg, 650 mg, Rectal, TID, Nj Thorne PA-C amLODIPine (NORVASC) tablet 10 mg, 10 mg, oral, DAILY, Bonita Estrada MD, 10 mg at 04/02/23 08 atenolol (TENORMIN) tablet 25 mg, 25 mg, oral, DAILY, Bonita Estrada MD, 25 mg at 04/02/23 08 D50W IV syringe 25-50 mL, 25-50 mL, Intravenous, PRN, Nj Thorne PA-C docusate sodium (COLACE) capsule 200 mg, 200 mg, oral, Twice Daily, Nj Thorne PA-C DULoxetine (CYMBALTA) delayed release capsule 20 mg, 20 mg, oral, DAILY, Bonita Estrada MD, 20 mg at 04/02/23 08 DULoxetine (CYMBALTA) delayed release capsule 60 mg, 60 mg, oral, DAILY, Bonita Estrada MD, 60 mg at 04/02/23 08 famotidine (PEPCID) tablet 20 mg, 20 mg, oral, DAILY, Bonita Estrada MD, 20 mg at 04/02/23 08 glucagon, human recombinant (Glucagen) injection (conc: 1 [...] : Prior to Admission Julius Ann MD [facility] Medicine OR WEB DESIGNER * Trevon Buenrostro PA-C - 04/02/2023 9:02 [...] Otherwise WNL. Trevon Buenrostro PA-C 12:32 PM [facility] [place] Office: [phone] OR WEB DESIGNER * Kunal Morrow RN - 04/02/2023 2:48 [...] Invasive Devices: PIVx2, garrett D- Discharge: TBD OR WEB DESIGNER * Bonita Estrada MD - 04/01/2023 7:37 [...] Surgery Disposition: Per surgery Access. WILL[facility] Service OR WEB DESIGNER * Janice Arriaza RN - 04/01/2023 6:45 [...] to call for help, name of assigned respiratory care program director, initialphysician orders, hourly rounding procedures, belongings checklist, unit and plan of care. R. Patient expressed understanding of information.. Janice Arriaza RN OR WEB DESIGNER * Isaac Buenrostro - 04/01/2023 4:43 PM CST [facility] [phone] Patient seen in room today for fitting of an Toxey LSO. Brace was fit, the use and care was covered, Overall fit of the brace after I finished looks good. Patient to follow wearing parameters set by ordering provider. Please reach out with any further questions or concerns. Isaac Porter C/LPOA C/LOF OR WEB DESIGNER * Jolene Guzmán - 04/01/2023 11:11 AM CST S: Infection/Isolation Review B: Patient with history of MDRO requires isolation to prevent transmission in the healthcare setting A: Patient meets facility clearing protocol for MRSA R: Discontinue Contact Precautions. Manage cares using Standard Precautions. Infection Prevention [id number] OR WEB DESIGNER documented in this encounter Consult Notes * [...] Patient Seen In: Room Family/Caregiver Present: No Home Health Aide Caregiver Used?: NA Hearing: Within Functional Limits Lines and Tubes: Garrett Catheter PRECAUTIONS Precautions Devices/Equipment Required: Lumbar Spine Orthosis Precautions: Spinal SAFETY INTERVENTIONS Safety Interventions Fall Risk?: Yes Safety Interventions/Patient Disposition: Standard interventions, Sac sitter on, Seated positioning system in place, [...] None AM-PAC Daily Activity Raw Score: 20 AM-[facility] Daily Activity CMS 0-100% Score: 38.32 AM-PAC [...] slip on shoes in figure four stance wt set up assist.) FUNCTIONAL MOBILITY Bed Mobility [...] Frame Short term goals target date: 04/02/23 USP goals target date: 04/02/23 Patient/Family Participation in [...] ADLs and functional transfers. Outcome: Goal Met Senior Unix Administrator Goals Patient will complete ADLs including: feeding, hygiene/grooming, dressing, toileting, with set-up/supervision Outcome: Goal Met OR WEB DESIGNER documented in this encounter Nursing Notes * Seymour Marvin RN - 04/03/2023 9:12 AM CST Problem: Pain - Acute Goal: Exhibits reduction in pain to an acceptable level of comfort Outcome: Ongoing Problem: Mobility - Impaired Goal: Demonstrates ability to perform physical activity independently or with assistive devices as needed Outcome: Ongoing OR WEB DESIGNER * Daisha Kam RN - 04/03/2023 1:17 AM CST Problem: Pain - Acute Goal: Exhibits reduction in pain to an acceptable level of comfort Outcome: Met this shift Problem: Respiratory Status - Altered, Actual or Risk of Goal: Exhibits no signs or symptoms of respiratory distress Outcome: Met this shift Problem: Falls/Injury-Risk of Goal: Absence of Falls/Injury Outcome: Met this shift OR WEB DESIGNER * Seymour Marvin RN - 04/02/2023 3:49 [...] 0851 by Seymour Marvin RN Outcome: Ongoing OR WEB DESIGNER * Seymour Marvin RN - 04/02/2023 8:51 AM CST Problem: Pain - Acute Goal: Exhibits reduction in pain to an acceptable level of comfort Outcome: Ongoing Problem: Mobility - Impaired Goal: Demonstrates ability to perform physical activity independently or with assistive devices as needed Outcome: Ongoing OR WEB DESIGNER * Kunal Morrow RN - 04/02/2023 2:48 [...] used to reduce pain sensation Outcome: Ongoing OR WEB DESIGNER * Janice Arriaza RN - 04/01/2023 6:52 PM CST Problem: Falls/Injury-Risk of Goal: Absence of Falls/Injury Outcome: Met this shift Flowsheets (Taken 04/01/2023 8613) Environmental Safety Interventions: Standard Interventions in Place Fall Risk Light on Outside Patient Room Fall Risk train reservation clerk Door (NMR) High Risk Armband On (Green Bracelet) Problem: Pain - Acute Goal: Exhibits reduction in pain to an acceptable level of comfort Outcome: Met this shift Problem: Respiratory Status - Altered, Actual or Risk of Goal: Exhibits no signs or symptoms of respiratory distress Outcome: Met this shift OR WEB DESIGNER * Florian Franz RN - 04/01/2023 4:27 PM CST Pt a/o x 3. VSS sats WNL on RA. Drsg C/D/I. Neros 5/5 denies numbness. In LE. Pain 2-3/10 denies nausea. Report called to RN A7 OR WEB DESIGNER * Amie Mclaughlin RN - 04/01/2023 11:10 AM CST INfectious disease updated on ot h/o MRSA 12 years ago for follow up OR WEB DESIGNER documented in this encounter OR Notes * OR Surgeon - Isai Foss MD - 04/01/2023 8:51 AM CST OPERATIVE REPORT Michelle Franz 1945 SURGEON: Isai Foss MD SALES OPERATIONS SPECIALIST (posterior) STANISLAV Estrada PREOPERATIVE DIAGNOSES: Adult degenerative scoliosis, DDD POSTOPERATIVE DIAGNOSIS: Same PROCEDURES: 1. L1-L5 posterolateral spinal fusion 2. L1-L5 posterior instrumentation 3. Allograft, local autograft placed posterolaterally 4. C-arm for intraoperative level localization and hardware evaluation. ANESTHESIA: General, local. COMPLICATIONS: None. SPECIMENS: None. IMPLANTS: Implant Name Type Inv. Item Serial No. Braided Band Assembler Lot No. [id number] No. Used Action NMP FIBERS LARGE - [id number] Bone NMP FIBERS LARGE [id number] [employer] N/A 1 Implanted NMP FIBERS LARGE - [id number] Bone NMP FIBERS LARGE [id number] [employer] N/A 1 Implanted NMP FIBERS LARGE - [id number] Bone NMP FIBERS LARGE [id number] [employer] N/A 1 Implanted INFUSE MED - [id number] Prosthetic Implant Non-Specific INFUSE MED Medtronic Sofamor Danek [id number] N/A 1 Implanted CANCELLOUS CHIPS 30CC - [id number] Bone CANCELLOUS CHIPS 30CC [id number] [employer] Inc N/A 1 Implanted CANCELLOUS CHIPS 60CC - [id number] Bone CANCELLOUS CHIPS 60CC [id number] [employer] Inc N/A 1 Implanted CANCELLOUS CHIPS 30CC - [id number] Bone CANCELLOUS CHIPS 30CC [id number] [employer] Inc N/A 1 Implanted CREO 5.5 [...] the PACU for further cares. Postoperative plan: Toxey Standing AP and lateral scoliosis x-rays prior to discharge Avoid significant bending, lifting, twisting for 3 months minimum Stanislav Estrada provided assistance with preoperative positioning, prepping, and draping of the patient. The chiropractor assistant provided vital operative assistance with retraction [...] of care being made to the anesthesiologist. OR WEB DESIGNER * Brief Op Note - Nj Thorne [...] The procedure was medically necessary for an chiropractor assistant because Dr. Foss needed the operative exposure and assistance that I provided. This allowed him to safely and efficiently operate. It was also important that I help ligate blood vessels to maintain hemostasis and reduce the bleeding risk. The assistance that I provided reduced operative time which meant less general anesthetic for the patient. Nj Thorne PA-C OR WEB DESIGNER documented in this encounter Plan of Treatment Scheduled Referrals Name Type Priority Associated Diagnoses Orde r Schedule Follow Up Follow Up Routine Ordered: 04/02 Follow Up Follow Up Routine Ordered: 04/03 documented as of this encounter Procedures Procedure Name Priority Date/Time Associated Diagnosis Comments HEMOGLOBIN Routine 04/03/2023 7:00 AM JUNIOR WEB DESIGNER HEMOGLOBIN Timed Procedure 04/02/2023 3:26 PM JUNIOR WEB DESIGNER XR SPINE LUMBAR ROUTINE STAT 04/02/2023 10:43 AM JUNIOR WEB DESIGNER EXTRA TUBE-SST (LAB USE ONLY) Routine 04/02/2023 7:28 AM JUNIOR WEB DESIGNER HEMOGLOBIN Routine 04/02/2023 7:28 AM JUNIOR WEB DESIGNER XR C-ARM SPINE STAT 04/01/2023 10:36 AM JUNIOR WEB DESIGNER SPIN BONE AUTOGRFT LOCAL 04/01/2023 7:29 AM JUNIOR WEB DESIGNER Degeneration of lumbar intervertebral disc ALLOGRAFT FOR SPINE SURGERY ONLY MORSELIZED 04/01/2023 7:29 AM JUNIOR WEB DESIGNER Degeneration of lumbar intervertebral disc INSERT VERT FIX DEV,POST,3-6 * 04/01/2023 7:29 AM JUNIOR WEB DESIGNER Degeneration of lumbar intervertebral disc SPINE FUSN,POST TECH,EA ADDNL* 04/01/2023 7:29 AM JUNIOR WEB DESIGNER Degeneration of lumbar intervertebral disc ARTHRODESIS POSTERIOR/POSTEROLAT ERAL LUMBAR 04/01/2023 7:29 AM JUNIOR WEB DESIGNER Degeneration of lumbar intervertebral disc ABORH CONFIRM (LAB USE ONLY) STAT 04/01/2023 6:47 AM JUNIOR WEB DESIGNER TYPE AND SCREEN STAT 04/01/2023 6:46 AM JUNIOR WEB DESIGNER PROTIME/INR STAT 04/01/2023 6:46 AM JUNIOR WEB DESIGNER PARTIAL THROMBOPLASTIN TIME STAT 04/01/2023 6:46 AM JUNIOR WEB DESIGNER HEMOGLOBIN STAT 04/01/2023 6:46 AM JUNIOR WEB DESIGNER HEMATOCRIT STAT 04/01/2023 6:46 AM JUNIOR WEB DESIGNER POCT GLU METER STAT 04/01/2023 6:12 AM JUNIOR WEB DESIGNER documented in this encounter Results * (ABNORMAL) Hemoglobin (04/03/2023 7:00 AM JUNIOR WEB DESIGNER) Only the most recent of4 resultswithin the time period is included. Hemoglobin 8.5(L) 12.0 - 16.0 gm/dL 04/03/2023 7:25 AM JUNIOR WEB DESIGNER [facility] Blood 04/03/2023 7:00 AM JUNIOR WEB DESIGNER 04/03/2023 7:17 AM JUNIOR WEB DESIGNER Nj Thorne PA-C HEMATOLOGY ORDERA BLE [facility] [address] [place] [id number] * XR SPINE LUMBAR ROUTINE (04/02/2023 10:43 AM JUNIOR WEB DESIGNER) Anatomical Region Laterality Modality Spine Computed Radiogr aphy 04/02/2023 11:2 7 AM JUNIOR WEB DESIGNER Impressions 04/02/2023 11:29 AM JUNIOR WEB DESIGNER IMPRESSION: 1. Operative changes of posterior danny and pedicle screw fixation L1-L5 with posterolateral bone graft material, grossly negative for postoperative purposes. Lumbar vertebral body alignment described in more detail above. 2. Old superior and inferior pubic rami fractures. REPORT SIGNED BY Janice Talavera M.D. Narrative 04/02/2023 11:29 AM JUNIOR WEB DESIGNER EXAM: ??XR SPINE LUMBAR ROUTINE DATE: 04/02/2023 [...] SIGNED BY Janice Talavera M.D. Nj Thorne PABenoit XRAY ORDERABLE * Extra Tube-SST (Lab Use Only) (04/02/2023 7:28 AM JUNIOR WEB DESIGNER) Blood 04/02/2023 7:28 AM JUNIOR WEB DESIGNER 04/02/2023 7:53 AM JUNIOR WEB DESIGNER Bonita Estrada MD CHEMISTRY ORDERABLE [facility] [address] [place] [address] * XR C-ARM SPINE (04/01/2023 10:36 AM JUNIOR WEB DESIGNER) Anatomical Region Laterality Modality Computed Radiogr aphy 04/01/2023 12:3 5 PM JUNIOR WEB DESIGNER Impressions 04/01/2023 12:37 PM JUNIOR WEB DESIGNER IMPRESSION: 1. ??Procedural assistance. REPORT SIGNED BY DR. MARCUS JUNE Narrative 04/01/2023 12:37 PM JUNIOR WEB DESIGNER EXAM: ??XR C-ARM SPINE DATE: ?? 04/01/2023 [...] Confirm (Lab Use Only) (04/01/2023 6:47 AM JUNIOR WEB DESIGNER) Group and Rh O Positive 04/01/2023 9:09 AM JUNIOR WEB DESIGNER [facility] Blood 04/01/2023 6:47 AM JUNIOR WEB DESIGNER 04/01/2023 7:26 AM JUNIOR WEB DESIGNER Nj Deonna Thorne PA-C BLOOD BANK ORDERA BLE Performing Organization Address City/[facility]/ZIP Co de Phone Number [id number] [place] [phone] * Hematocrit (04/01/2023 6:46 AM JUNIOR WEB DESIGNER) Hematocrit 37.3 36.0 - 48.0 % 04/01/2023 7:07 AM JUNIOR WEB DESIGNER [facility] Blood 04/01/2023 6:46 AM JUNIOR WEB DESIGNER 04/01/2023 6:50 AM JUNIOR WEB DESIGNER Nj Ying Fadumo MENDOZA HEMATOLOGY ORDERA BLE Performing Organization Address City/[facility] Co de Phone Number [address] [address] * Type and Screen (04/01/2023 6:46 AM JUNIOR WEB DESIGNER) Group and Rh O Positive 04/01/2023 7:39 AM JUNIOR WEB DESIGNER [facility] Antibody Screen Negative 04/01/2023 7:39 AM JUNIOR WEB DESIGNER [facility] Blood 04/01/2023 6:46 AM JUNIOR WEB DESIGNER 04/01/2023 6:50 AM JUNIOR WEB DESIGNER Nj Deonna Thorne PA-C BLOOD BANK ORDERA BLE Performing Organization Address City/[facility]/ZIP Co de Phone Number [facility]US[facility] [address] [address] [facility] [address] [place] [address] * Partial Thromboplastin Time (04/01/2023 6:46 AM JUNIOR WEB DESIGNER) PTT 28.8 24.0 - 31.0 SEC. 04/01/2023 7:06 AM [facility] Blood 04/01/2023 6:46 AM JUNIOR WEB DESIGNER 04/01/2023 6:50 AM JUNIOR WEB DESIGNER Narrative [facility] - 04/01/2023 7:06 AM JUNIOR WEB DESIGNER aPTT Therapeutic Reference Ranges: Argatroban protocol: 60 - 85 seconds Bivalirudin protocol: 43 - 71 seconds Nj Thorne PA-C COAGULATION ORDER ABLE Performing Organization Address [facility]/ZIP Co de Phone Number [facility] [address] [place] [address] * Protime/INR (04/01/2023 6:46 AM JUNIOR WEB DESIGNER) INR 1.0 0.9 - 1.2 04/01/2023 7:06 AM [facility] Blood 04/01/2023 6:46 AM JUNIOR WEB DESIGNER 04/01/2023 6:50 AM JUNIOR WEB DESIGNER Nj Thorne PA-C COAGULATION ORDER ABLE Performing Organization Address [facility]/ZIP Co de Phone Number [facility] [address] [place] [address] * (ABNORMAL) POCT Glucose Meter (04/01/2023 6:12 AM JUNIOR WEB DESIGNER) GLUCOSE WB METER 105(H) 60 - 100 mg/dL 04/01/2023 6:38 AM [facility] Blood 04/01/2023 6:12 AM JUNIOR WEB DESIGNER 04/01/2023 6:38 AM JUNIOR WEB DESIGNER Isai Foss MD LAB POINT OF CARE TE ST RESULTS Performing Organization Address [facility]/State/ZIP Co de Phone Number [facility] [address] [place] [address] documented in this encounter Visit Diagnoses Diagnosis [...] Until Discontinued, Post-Op Given 04/03/2023 1:15 PM JUNIOR WEB DESIGNER 1,000 mg Given 04/03/2023 8:12 AM JUNIOR WEB DESIGNER 1,000 mg Given 04/02/2023 10:15 PM JUNIOR WEB DESIGNER 1,000 mg amLODIPine (NORVASC) tablet 10 mg 10 mg, oral, DAILY, First dose on Fri04/02/23 at 0800, Until Discontinued Given 04/03/2023 8:11 AM JUNIOR WEB DESIGNER 10 mg Given 04/02/2023 8:08 AM JUNIOR WEB DESIGNER 10 mg atenolol (TENORMIN) tablet 25 mg 25 mg, oral, DAILY, First dose on Fri04/02/23 at 0800, Until Discontinued Given 04/03/2023 8:11 AM JUNIOR WEB DESIGNER 25 mg Given 04/02/2023 8:08 AM JUNIOR WEB DESIGNER 25 mg ceFAZolin (Ancef) 1 g in sodium chloride 0.9 % 100 mL IV piggyback 1 g, Intravenous, EVERY 8 HOURS (NS), 2 doses, First dose on Fri04/01/23 at 1115, Last dose on Fri04/01/23 at 1915, Post-Op, Administer over 30 Minutes New Bag 04/01/2023 7:38 PM JUNIOR WEB DESIGNER 1 g 200 mL/hr D50W IV syringe [...] 2030, Until Discontinued Given 04/02/2023 7:57 PM JUNIOR WEB DESIGNER 20 mg Given 04/01/2023 8:12 PM JUNIOR WEB DESIGNER 20 mg DULoxetine (CYMBALTA) delayed release capsule 60 mg 60 mg, oral, DAILY, First dose on Fri04/01/23 at 2030, Until Discontinued Given 04/02/2023 7:57 PM JUNIOR WEB DESIGNER 60 mg Given 04/01/2023 8:11 PM JUNIOR WEB DESIGNER 60 mg famotidine (PEPCID) tablet 20 mg 20 mg, oral, DAILY, First dose on Fri04/01/23 at 2030, Until Discontinued Given 04/03/2023 8:11 AM JUNIOR WEB DESIGNER 20 mg Given 04/02/2023 8:08 AM JUNIOR WEB DESIGNER 20 mg Given 04/01/2023 8:11 PM JUNIOR WEB DESIGNER 20 mg gabapentin (NEURONTIN) capsule 600 mg 600 mg, oral, ONCE, 1 dose, On Fri04/01/23 at 0600, Pre-Op Given 04/01/2023 6:43 AM JUNIOR WEB DESIGNER 600 mg glucagon, human recombinant (Glucagen) injection [...] POST-ACUTE PAIN MANAGEMENT Given 04/01/2023 1:12 PM JUNIOR WEB DESIGNER 0.2 mg Given 04/01/2023 11:45 AM JUNIOR WEB DESIGNER 0.2 mg HYDROmorphone (DILAUDID) syringe 0.2-0.4 mg 0.2-0.4 mg, Intravenous, EVERY 4 HOURS NEEDED, Starting on Fri04/01/23 at 1109, Until Fri04/02/23 at 0158, Post-Op, Pain, when NOT taking PO Given 04/02/2023 12:29 AM JUNIOR WEB DESIGNER 0.4 mg Given 04/01/2023 2:31 PM JUNIOR WEB DESIGNER 0.3 mg HYDROmorphone (DILAUDID) syringe 0.2-0.4 mg 0.2-0.4 mg, Intravenous, EVERY 4 HOURS NEEDED, Starting on Fri04/02/23 at 0158, Until Fri04/02/23 at 1142, Post-Op, Pain, when NOT taking PO, Pain, if oral opioid not effective or tolerated Given 04/02/2023 3:39 AM JUNIOR WEB DESIGNER 0.4 mg HYDROmorphone (DILAUDID) syringe 0.5 mg 0.5 mg, Intravenous, EVERY 4 HOURS NEEDED, Starting on Fri04/02/23 at 1141, Until Fri04/03/23 at 2133, Post-Op, Pain, when NOT taking PO, Pain, if oral opioid not effective or tolerated Given 04/02/2023 11:04 PM JUNIOR WEB DESIGNER 0.5 mg Given 04/02/2023 5:37 PM JUNIOR WEB DESIGNER 0.5 mg Given 04/02/2023 1:21 PM JUNIOR WEB DESIGNER 0.5 mg hydrOXYzine HCl (VISTARIL) injection 25 mg 25 mg, IntraMUSCULAR, ONCE NEEDED, MAY REPEAT X 1, 2 doses, Starting on Fri04/01/23 at 1107, Until Fri04/01/23 at 1642, Phase 1/2, for nausea unrelieved by second line antiemetic if not given in the past 6 hours while in recovery area. Given 04/01/2023 11:45 AM JUNIOR WEB DESIGNER 25 mg Left Lateral Thigh hydrOXYzine HCl [...] past 6 hours. Given 04/01/2023 3:43 PM JUNIOR WEB DESIGNER 25 mg hydrOXYzine pamoate (Vistaril) capsule 50 mg 50 mg, oral, EVERY 3 HOURS NEEDED, Starting on Fri04/01/23 at 1109, Until Khloe 04/03/23 at 2133, Post-Op, to enhance pain control of analgesics Given 04/03/2023 2:37 AM JUNIOR WEB DESIGNER 50 mg Given 04/01/2023 9:28 PM JUNIOR WEB DESIGNER 50 mg lactated Ringers (LR) IV infusion at 50 mL/hr, Intravenous, CONTINUOUS, Starting on Fri04/01/23 at 0600, Until Fri04/01/23 at 1119, Pre-Op New Bag 04/01/2023 6:45 AM JUNIOR WEB DESIGNER 50 mL/hr lactated Ringers (LR) IV infusion at 100 mL/hr, Intravenous, CONTINUOUS, Starting on Fri04/01/23 at 1115, Until Fri04/01/23 at 1642, Phase 1 Restarted 04/01/2023 11:15 AM JUNIOR WEB DESIGNER 100 mL/hr naloxone (NARCAN) injection 0.1 mg 0.1 mg, Intravenous, EVERY 1 MINUTE PRN, Starting on Fri04/01/23 at 1109, Until Khloe 04/03/23 at 2133, Post-Op, Opiate Reversal ondansetron (ZOFRAN) disintegrating tablet 4 mg 4 mg, oral, EVERY 8 HOURS NEEDED, Starting on Fri04/01/23 at 1109, Until Khloe 04/03/23 at 2133, Post-Op, nausea & vomiting Given 04/03/2023 2:40 AM JUNIOR WEB DESIGNER 4 mg ondansetron (ZOFRAN) injection 4 mg [...] in recovery area Given 04/01/2023 3:44 PM JUNIOR WEB DESIGNER 5 mg oxyCODONE (immediate release) (ROXICODONE) tablet 5-10 mg 5-10 mg, oral, EVERY 4 HOURS NEEDED, Starting on Fri04/01/23 at 1109, Until Khloe 04/03/23 at 2133, Post-Op, Pain, when taking PO Given 04/03/2023 2:30 PM JUNIOR WEB DESIGNER 5 mg Given 04/03/2023 10:23 AM JUNIOR WEB DESIGNER 10 mg Given 04/03/2023 6:44 AM JUNIOR WEB DESIGNER 10 mg oxyCODONE (oxyCONTIN) extended release tablet 12 HR 10 mg 10 mg, oral, ONCE, 1 dose, On Fri04/01/23 at 0600, Pre-Op Given 04/01/2023 6:43 AM JUNIOR WEB DESIGNER 10 mg potassium chloride 20 mEq in D5W-NS IV infusion 1000 mL at 50 mL/hr, Intravenous, CONTINUOUS, Starting on Fri04/01/23 at 1115, Until Khloe 04/03/23 at 2133, Post-Op New Bag 04/01/2023 8:22 PM JUNIOR WEB DESIGNER 50 mL/ hr prochlorperazine (COMPAZINE) injection 10 [...] 61 Minutes New Bag 04/02/2023 8:37 PM JUNIOR WEB DESIGNER 500 mL 491. 8 mL/hr tiZANidine (ZANAFLEX) tablet 2-4 mg 2-4 mg, oral, EVERY 6 HOURS NEEDED, Starting on Fri04/01/23 at 1109, Until Fri04/03/23 at 2133, Spasticity Given 04/03/2023 10:23 AM JUNIOR WEB DESIGNER 4 mg Given 04/02/2023 4:45 PM JUNIOR WEB DESIGNER 4 mg Given 04/02/2023 8:07 AM JUNIOR WEB DESIGNER 4 mg vancomycin ( VANCOCIN ) 1000 mg in NS 250 mL IV piggyback 1,000 mg, Intravenous, ONE HOUR PRE-PROCEDURE ONE TIME DOSE, 1 dose, Starting on Fri04/01/23 at 0553, Until Fri04/01/23 at 0743, Pre-Op New Bag 04/01/2023 6:43 AM JUNIOR WEB DESIGNER 1,000 mg 250 mL/hr documented in this encounter Active and Recently Administered Medications Times are shown in JUNIOR WEB DESIGNER. Scheduled Medication Order 04/01/2023 04/02/2023 04/03/2023 acetaminophen [...] 807 (Given - Provider: Seymour Marvin RN) 08 [...] injection 10 mg (COMPLETED) 10 mg, Intravenous, UNIVERSITY INTERN TO OR, 1 dose, Starting on Fri04/01/23 at 0553, Until Discontinued, Intra-Op 0835 (Given - Provider: Monika Ireland APRN, [place]ER ROD MILL) docusate sodium (COLACE) capsule 200 mg 200 [...] 1642, Phase 1 1115 (Restarted - Provider: Folrian Franz RN) phenylephrine (TREVER-SYNEPHRINE) 32 mg in [...] (New Bag - Provider: Monika Ireland APRN, [place] ROD [place]ILL)0932 (Rate Change - Provider: Monika Ireland APRN, [place] [place])1014 (Rate Change - Provider: Monika Ireland APRN, [place] [employer] [place])1106 (Rate Change - Provider: Monika Ireland, FEMI, MILLER ROD MILL)1108 (Stopped - Provider: Monika Ireland APRN, [place] [employer] M[place]) potassium chloride 20 mEq in D5W-NS IV [...] Amie Mclaughlin RN)1312 (Given - Provider: Florian Franz, ANGELES) HYDROmorphone (DILAUDID) syringe 0.2-0.4 mg (CANCELED) 0.2-0.4 mg, Intravenous, EVERY 4 HOURS NEEDED, Starting on Fri04/01/23 at 1109, Until Fri04/02/23 at 0158, Post-Op, Pain, when NOT taking PO 1431 (Given - Provider: Florian Franz RN) 0029 (Given - Provider: Kuanl Morrow, ANGELES) HYDROmorphone (DILAUDID) syringe 0.2-0.4 mg [...] Post-Op, to enhance pain control of analgesics 2127 (Given - Provider: Kunal Morrow RN) 236 (Given - Provider: Daisha Kam RN) naloxone (NARCAN) injection 0.1 mg 0.1 [...] RN)2123 (Given - Provider: Kunal Morrow RN) 06 (Given - Provider: Kunal Morrow RN)1020 (Given - Provider: Seymour Marvin RN)1421 (Given - Provider: Seymour Marvin RN)1832 (Given - Provider: Seymour Y. Shavonne, RN)2215 (Given - Provider: Tamy Sosa RN) [...] Prevention 04/01/23 04/01/2023 04/01/2023 04/01/2023 11:11 AM JUNIOR WEB DESIGNER documented as of this encounter Care Teams Advertiser Relationship Specialty Start Date End Date Ló[place] [address] [address] [address] PCP - General Internal Medicine 03/12/23 04/01/23 Ló[place] [address] [address] [address] [place] [address] PCP - General Internal Medicine 04/02/23 [facility] [address] [address] [phone] PCP - Primary Care Clinic 04/02/23 documented as of this encounter
--- OUTSIDE RECORDS SUMMARY | 2023-04-11 16:01 | XMS_ITS | Encounter Summary ---
Author Name Unknown Organization [place] Address [address] [facility] [place] [address] Care Team Providers Care Buffing And Sueding Machine Operator Name Role Phone Carolynn Alvarado Primary Care Provider [phone] Morgan Avelar MD Unavailable Ismael Ordoñez PA-C Unavailable [phone] Encounter Details Date Type Department Care Team (Late st Contact Info) Description 10/20/2020 MyC Medical Advice [facility] [address] [address] Rachna Thomas APRN [facility] [address] [place] [address] [address] [place], [place] [id number] Social History Tobacco Use Types Packs/Day Years [...] on filedocumented in this encounter Care Teams Buffing And Sueding Machine Operator Relationship Specialty Start Date End Date Hilario Alvaradocrystal Busby PCP - General 05/30/16 [place] [address] [place] [id number] Assigned Neuroscience Provider 01/30/20 12/02/20 Ismael Ordoñez PA-C [address] [place] [address] Assigned Neuroscience Provider 12/03/20 documented as of this encounter
--- OUTSIDE RECORDS SUMMARY | 2023-04-11 16:01 | XMS_ITS | Encounter Summary ---
Author Name Unknown Organization [place] Address [address] [facility] [place] [address] Care Team Providers Care Box Stacker Name Role Phone Carolynn Alvarado Primary Care Provider [phone] Ismael Ordoñez PA-C Unavailable Reason for Visit * Reason Onset Date Comments Appointment 10/22/2022 Encounter Details Date Type Department Care Team (Late st Contact Info) Description 10/22/2022 Telephone [facility] [address] [address] [place] [address] [place] [address] Appointment Social History Tobacco Use [...] on filedocumented in this encounter Care Teams Box Stacker Relationship Specialty Start Date End Date Carolynn Alvarado PCP - General 05/30/16 Ismael Ordoñez PA-C [address] [place] [address] Assigned Neuroscience Provider 12/03/20 documented as of this encounter
--- OUTSIDE RECORDS SUMMARY | 2023-04-11 16:01 | XMS_ITS | Encounter Summary ---
Author Name Unknown Organization [facility] Address [address] [place] [address] Care Team Providers Care Data Reduction Technician Name Role Phone Carolynn Alvarado MD Primary Care Provider [phone] Reason for Visit * Reason Comments Refill Encounter Details Date Type Department Care Team Description 04/08/2023 Refill [facility] [address] [facility] [address] [facility] [place], [place] [id number] Carey Rashid DO [address] [place] [address] Refill Social History Tobacco Use Types Packs/Day Years [...] as of this encounter Nursing Notes * Rachel Stafford RN - 04/10/2023 4:05 PM CST Updated patient. No further questions or concerns at this time. O VISUAL FACILITIES ENGINEER * Carey Rashid DO - 04/09/2023 8:59 AM CST TANK HOOP BENDER and notes reviewed. We can discuss at there follow-up. Given the proximity of her surgery, I would recommend she continue the medication for now. Signed and sent to pharmacy. Thank you! O VISUAL FACILITIES ENGINEER * Yamini Centeno RN - 04/08/2023 11:18 AM CST Patient reports having a spinal fusion, multi-level L1-2-5 approximately one week ago. Patient is taking the lyrica currently: 1 tablet (25 mg) twice a day. Patient unsure how helpful but would talk with you at follow-up regarding continuation. Last OV: 09/08/2022 Next OV: 05/09/23 PLAN: Additional Work-up: -Agree with follow up [...] Injections: Recently underwent right L1-2 TFESI at [place]. Concern that some of her symptoms are in fact related to the L3 nerve on the right. 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 Hold on any injections as she recently underwent TOM 10 days ago. Follow-up: 6 weeks O VISUAL FACILITIES ENGINEER documented in this encounter Plan of Treatment Upcoming Encounters Date Type Department Care Team Description 04/15/2023 10:45 AM AUDIO VISUAL FACILITIES ENGINEER Appointment [facility] [address] [facility] [place] [address] Sin Castorena MD [address] [facility] [place] [id number] Injection 05/09/2023 9:00 AM AUDIO VISUAL FACILITIES ENGINEER Appointment [facility] [address] [place], [place] [phone] Carey Rashid DO [address] [place], [place] [id number] 05/14/2023 2:15 PM AUDIO VISUAL FACILITIES ENGINEER Appointment [facility] [address] [place] [address] Curt Wolfe MD [address] [place] [address] Nurse, Cardiology II [facility] [address] [place] [address] documented as of this encounter Visit Diagnoses Not on filedocumented in this encounter Additional Health Concerns Infection Onset Date Last Indicated Resolved Time 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
--- OUTSIDE RECORDS SUMMARY | 2023-04-11 16:01 | XMS_ITS | Encounter Summary ---
Author Name Unknown Organization [facility] Address [address] [place] [address] Care Team Providers Care Can Vacuum Tester Name Role Phone Carolynn Alvarado MD Primary Care Provider [phone] Encounter Details Date Type Department Care Team Description 03/31/2023 Orders Only [facility] Provider, [place] [address] Social History Tobacco Use Types Packs/Day Years [...] Department Care Team Description 04/15/2023 10:45 AM OPHTHALMIC MEDICAL TECHNICIAN Appointment [facility] [address] [facility]. [place], [place] [phone] Sin Castorena MD [address] [place], [place] [address] Injection 05/09/2023 9:00 AM OPHTHALMIC MEDICAL TECHNICIAN Appointment [facility] [address] [place], [place] [phone] Carey Rashid DO [address] [place], [place] [id number] 05/14/2023 2:15 PM OPHTHALMIC MEDICAL TECHNICIAN Appointment [facility] [address] [place] [address] Curt Wolfe MD [address] [place], [place] [phone] Nurse, Cardiology II [facility] [facility] [address] [place] [facility] [id number] documented as of this encounter Procedures Procedure Name Priority Date/Time Associated Diagnosis Comments EKG 03/31/2023 documented in this encounter Results * EKG (03/31/2023) Interface Provider MD EKG documented in this encounter Visit Diagnoses Not on filedocumented in this encounter Additional Health Concerns Infection Onset Date Last Indicated Resolved Time 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
--- OUTSIDE RECORDS SUMMARY | 2023-04-11 16:01 | XMS_ITS | Encounter Summary ---
Author Name Unknown Organization [place] Address [address] [facility] [place] [address] Care Team Providers Care Open Die Inspector Name Role Phone Carolynn Alvarado Qi Primary Care Provider [phone] Ismael Ordoñez PA-C Unavailable [phone] Reason for Visit * Reason Comments RECHECK F/U from injection Encounter Details Date Type Department Care Team (Latest Contact Info) Description 08/20/2022 10:30 AM CDT Office Visit [facility] - [address], [address] [place] [address] Ismael Ordoñez PA-C [address] [facility] [address] [place], [place] [address] S/P lumbar microdiscectomy (Primary Dx); Lumbar radiculopathy [...] unspecified documented in this encounter Care Teams Open Die Inspector Relationship Specialty Start Date End Date Carolynn Alvarado PCP - General 05/30/16 Ismael Ordoñez PA-C [address] [place] [address] Assigned Neuroscience Provider 12/03/20 documented as of this encounter
--- OUTSIDE RECORDS SUMMARY | 2023-04-11 16:01 | XMS_ITS | Clinical Summary ---
Author Name Unknown Organization [place] Address [address] [facility] [place] [address] Care Team Providers Care Fuel Yard Operator Name Role Phone Carolynn Alvarado Primary Care Provider [phone] Ismael Ordoñez PA-C Unavailable [phone] Allergies Active Allergy Reactions Criticality Noted Date [...] Overview: Added automatically from request for surgery [id number] Resolved Problems Problem Noted Date Diagnosed Date [...] 37 ??C (98.6 ??F) 03/03/2021 9:14 AM FISH WORM GROWER Respiratory Rate 18 03/03/2021 9:14 AM FISH WORM GROWER Oxygen Saturation 99% 08/20/2022 10:38 AM CDT Inhaled Oxygen Concentration - - Weight 60 kg (132 lb 4.8 oz) 10/02/2021 10:20 AM CDT Height 165.1 cm (5' 5) 04/04/2021 10:30 AM FISH WORM GROWER Body Mass Index 22.02 04/04/2021 10:30 AM FISH WORM GROWER Plan of Treatment Health Maintenance Due Date [...] this topic Medical Devices Implanted Type Area Operations Research Scientist Device Identifier Shelf Expiration Date Model / Serial / Lot Graft Bone Crush Canc 15ml [id number] - [id number] Implanted:Qty : 1 on 10/11/2020 by Morgan Avelar MD at [facility] Bone/Ti ssue/Bi ologic N/A: Spine Cervical MUSCULOSKELETAL [place]TON 05/26/2023 [id number] / [id number] / 30mm Jarred Implanted:Qty : 2 on 10/11/2020 by Morgan Avelar MD at [facility] N/A: Spine Cervical [employer] [id number] / / [id number] Advance Directives For more information, please contact: [phone] Latest Code Status on File Code Status [...] 2:45 PM 10/11/2020 8:24 AM Care Teams Fuel Yard Operator Relationship Specialty Start Date End Date Carolynn Alvarado PCP - General 05/30/16 Ismael Ordoñez PA-C [address] [place] [address] Assigned Neuroscience Provider 12/03/20
--- OUTSIDE RECORDS SUMMARY | 2023-04-11 16:01 | XMS_ITS | Encounter Summary ---
Author Name Unknown Organization [place] Address [address] [place] [address] Care Team Providers Care Configuration Engineer Name Role Phone Carolynn Alvarado Primary Care Provider [phone] Ismael Ordoñez PA-C Unavailable [phone] Encounter Details Date Type Department Care Team [...] on filedocumented in this encounter Care Teams Configuration Engineer Relationship Specialty Start Date End Date Carolynn Alvarado PCP - General 05/30/16 Ismael Ordoñez PA-C [address] [place] [address] Assigned Neuroscience Provider 12/03/20 documented as of this encounter
--- OUTSIDE RECORDS SUMMARY | 2023-04-11 16:01 | XMS_ITS | Encounter Summary ---
Author Name Unknown Organization [place] Address [address] [facility] [place] [address] Care Team Providers Care Hostess Name Role Phone Carolynn Alvarado Primary Care Provider [phone] Ismael Ordoñez PA-C Unavailable [phone] Encounter Details Date Type Department Care Team [...] on filedocumented in this encounter Care Teams Hostess Relationship Specialty Start Date End Date Carolynn Alvarado PCP - General 05/30/16 Ismael Ordoñez PA-C [address] [place] [address] Assigned Neuroscience Provider 12/03/20 documented as of this encounter
--- OUTSIDE RECORDS SUMMARY | 2023-04-11 16:01 | XMS_ITS | Encounter Summary ---
Author Name Unknown Organization [place] Address [address] [facility] [place] [address] Care Team Providers Care Cisco Network Architect Name Role Phone Carolynn Alvarado Primary Care Provider [phone] Ismael Ordoñez PA-C Unavailable [phone] Reason for Referral * Consultation (Routine: Next available opening) - Pending Review Specialty Diagnoses / Procedures Referred By Contselvin t Referred To Contact Pain Medicine Diagnoses S/P lumbar microdiscectomy Lumbar radiculopathy Ismael Ordoñez PA-C [address] [facility] [address] [place] [address] Referral ID Status Reason Start Date Expiration Date V isits Requested Visits Authorized Pending Review 08/02/2022 08/02/2023 1 1 Question Answer Reason for Referral: Procedure Order Procedure: Epidural (Advanced imaging required in the last 3 years) Location: Lumbar Scheduling Instructions: [employer] will call you to coordinate care as prescribed your provider. If you don? t hear from a patient financial representative within 2 business days, please call . Additional Information: Right L1-2 TFESI Comments Please be aware that coverage of these services is subject to the terms and limitations of your health insurance plan. Call member services at your health plan with any benefit or coverage questions. [employer] will call you to coordinate care as prescribed your provider. If you don? t hear from a patient financial representative within 2 business days, please call . Reason for Visit * Reason Comments Consult Right sided low back pain with burning and shooting, radiates down right leg stopping above knee, numbness and tingling in upper leg outer thigh Encounter Details Date Type Department Care Team (Latest Contact Info) Description 08/02/2022 10:00 AM CDT Office Visit [facility] Neurology [facility] [place] [id number] [facility], [address] [place] [address] Ismael Ordoñez PA-C [address] [facility] [address] [place] [id number] S/P lumbar microdiscectomy (Primary Dx); Lumbar radiculopathy [...] Associated Diagnoses Orde r Schedule Pain Management Furnace Tender Referral Referral Routine: Next available opening S/P lumbar microdiscectomy Lumbar radiculopathy Expected: 08/02/2022 (Approximate), Expires: 08/03/2023 documented as of this encounter Visit Diagnoses Diagnosis S/P lumbar microdiscectomy- Primary Other postprocedural status Lumbar radiculopathy Thoracic or lumbosacral neuritis or radiculitis, unspecified documented in this encounter Care Teams Cisco Network Architect Relationship Specialty Start Date End Date Carolynn Alvarado PCP - General 05/30/16 Ismael Ordoñez PA-C [address] [place] [address] Assigned Neuroscience Provider 12/03/20 documented as of this encounter
--- OUTSIDE RECORDS SUMMARY | 2023-04-11 16:01 | XMS_ITS | Referral Summary ---
Author Name Unknown Organization [place] Address [address] [facility] [place] [address] Care Team Providers Care Shaper Set Up Operator Name Role Phone Carolynn Alvarado Primary Care Provider [phone] Ismael Ordoñez PA-C Unavailable [phone] Allergies Active Allergy Reactions Criticality Noted Date [...] Overview: Added automatically from request for surgery [id number] Resolved Problems Problem Noted Date Diagnosed Date [...] 37 ??C (98.6 ??F) 03/03/2021 9:14 AM NANOTECHNOLOGIST Respiratory Rate 18 03/03/2021 9:14 AM NANOTECHNOLOGIST Oxygen Saturation 99% 08/20/2022 10:38 AM CDT Inhaled Oxygen Concentration - - Weight 60 kg (132 lb 4.8 oz) 10/02/2021 10:20 AM CDT Height 165.1 cm (5' 5) 04/04/2021 10:30 AM NANOTECHNOLOGIST Body Mass Index 22.02 04/04/2021 10:30 AM NANOTECHNOLOGIST Plan of Treatment Not on file Medical Devices Implanted Type Area Front Office Assistant Device Identifier Shelf Expiration Date Model / Serial / Lot Graft Bone Crush Canc 15ml [id number] - [id number] Implanted:Qty : 1 on 10/11/2020 by Morgan Avelar MD at [facility] Bone/Ti ssue/Bi ologic N/A: Spine Cervical MUSCULOSKELETAL HELTON 05/26/2023 [id number] / [id number] / 30mm Jarred Implanted:Qty : 2 on 10/11/2020 by Morgan Avelar MD at [facility] N/A: Spine Cervical MEDTRONIC [id number] / / [id number] Advance Directives For more information, please contact: [phone] Latest Code Status on File Code Status [...] 2:45 PM 10/11/2020 8:24 AM Care Teams Shaper Set Up Operator Relationship Specialty Start Date End Date Carolynn Alvarado PCP - General 05/30/16 Ismael Ordoñez PA-C [address] [place] [address] Assigned Neuroscience Provider 12/03/20
--- OUTSIDE RECORDS SUMMARY | 2023-04-11 16:01 | XMS_ITS | Clinical Summary ---
Author Name Unknown Organization [facility] Address [address] [place] [address] Care Team Providers Care Opto Mechanical Technician Name Role Phone Carolynn Alvarado MD Primary Care Provider [phone] Source Comments You are receiving this document as you are listed as the primary care provider,follow-up provider, or the patient has been referred to you for consultation.This is in compliance with the Medicare and[facility] EHR Incentive Program,which states Providers who transition their patient to another setting of careor provider of care or refers their patient to another provider of care shouldprovide summary care record for each transition of care or referral. MyToons Allergies Active Allergy Reactions Criticality Noted Date [...] cream Apply topically daily. 0 3 Active methocarbamol (ROBAXIN) 500 MG tablet TAKE [...] AT BEDTIME 60 Tablet 0 4 Active pregabalin (LYRICA) 25 MG capsule TAKE 1 CAPSULE(25 MG) BY MOUTH TWICE DAILY. START WITH 1 TABLET AT BEDTIME 180 Capsule 0 4 Active pregabalin (LYRICA) 25 MG capsule Take 2 Capsules (50 mg) by mouth two times a day. Start with 1 tablet at bedtime. 360 Capsule 3 3 04/09/19 24 Discontinued LORazepam (ATIVAN) 0.5 MG tabletIndications :Psychophysiologi reji [...] Overview: Added automatically from request for surgery [id number] History of dysplastic nevus 09/05/2017 Overview: rt [...] ?? Behavioral health? Yes; date 2011- at [facility] ?? Other treatment modalities tried: Injection; date [...] surgery 2020 DEXA 12/22/2014 mild low, DUE [id number], Ca and D 05/24/2019 worsening, -2, FRAX 24.6% and 8.1% - asked to return to dsicuss tx BP Aortic insufficiency 03/04/2014 Overview: Moderate aortic insufficiency per echocardiogram in 2016. 03/03/2018 stable with mild dilation aorta 4.2 diameter Dilated aortic root 03/04/2014 Overview: 11/2015 mild dilation, Dr Wolfe recommended repeat in 3 years. Routine health maintenance 02/08/2014 Overview: Reviewed at [facility] exam 04/20/06/13/20222020 Menstrual periods: Post menopausal - 1813-2474 d/c'd HRT Calcium/vit D: Recommended daily DEXA: [...] unspecified Symptomatic menopausal or female climacteric sta aj 07/12/2010 Overview: LW Modifier: based on symptoms, [...] Encounters Date Type Department Care Team Description 04/08/2023 Refill [facility] [address] [facility] [address] [facility] [place] [address] Carey Rashid, DO Refill 03/31/2023 Orders Only HIM DEPARTMENT Provider, MD Denice 03/27/2023 11:00 AM SKATING RINK ICE MAKER Lab Visit [address] [address] Dilated aortic root (HRC); History of atrial fibrillation; Essential hypertension (HRC) 03/27/2023 10:30 AM SKATING RINK ICE MAKER Pre-Op Visit [place] [address] [id number] [place] [address] Isidoro Leach MD Preop examination (Primary Dx); Lumbosacral radiculopathy at L3; Essential hypertension (HRC); Mixed hyperlipidemia (HRC); Nonrheumatic aortic valve insufficiency (HRC); Dilated aortic root (HRC); History of atrial fibrillation 03/24/2023 3:15 PM SKATING RINK ICE MAKER Office Visit [facility] [facility]. [place] [address] Curt Wolfe MD Nurse, Cardiology II [place] Paroxysmal atrial fibrillation (HRC) (Primary Dx); Nonrheumatic aortic valve insufficiency (HRC); Essential hypertension (HRC); Mixed hyperlipidemia (HRC); Dilated aortic root (HRC) 03/24/2023 Notes/Orders [facility] Electrocardiogram, Holter, Event Recorder [address] [facility] [place] [address] Curt Wolfe MD Paroxysmal atrial fibrillation (HRC) (Primary Dx) 03/03/2023 1:45 PM SKATING RINK ICE MAKER Office Visit [facility] [address] [facility] 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 [address] Mycharsht, Generic Provider 02/17/2023 12:00 PM SKATING RINK ICE MAKER Lab Visit [facility] [address] [place] [address] Stress incontinence of urine 02/17/2023 11:15 AM SKATING RINK ICE MAKER Office Visit [place] [address] Obstetrics/Gynecol ogy [address] [place] [address] Margareth Edwards, FEMI, KAYLEYM Stress incontinence of urine (Primary Dx) 02/03/2023 10:30 AM SKATING RINK ICE MAKER Office Visit [facility] [address] [facility] [place] [address] Sin Castorena MD Exudative age-related macular degeneration of right eye with active choroidal neovascularization (HRC) (Primary Dx); Epiretinal membrane, left eye 01/31/2023 11:15 AM SKATING RINK ICE MAKER Therapy [facility] [address] [address] Eicfestushof Rona A, PT Chronic bilateral low back pain, unspecified whether sciatica present (Primary Dx); Lumbar radiculopathy, right 01/31/2023 Notes/Orders [facility] [address] [address] [place], Rona A, PT 01/20/2023 11:15 AM SKATING RINK ICE MAKER Therapy [facility] Physical [address] [address] [place]hof Rona A, PT Chronic bilateral low back pain, unspecified whether sciatica present (Primary Dx) 01/14/2023 1:30 PM CDT Therapy [facility] Physical [address] [address] Eicfest[place]of Rona A, PT Chronic bilateral low back pain, unspecified whether sciatica present (Primary Dx); Lumbar radiculopathy, right from Last 3 Months Immunizations Name Administration Dates Next Due DT Ped 06/14/1987 Flu Vac Preserv Free (3+yrs) 03/31/2012 Flublok (RIV4) 01/25/2019 Influenza (Fluzone 0.25, 6-35 mos) 02/05/2013 Influenza IIV3 (Trivalent) F luzone Highdose, 65+ Yrs (81692) 01/13/2018,01/02/2017,02/05/2016,2014,01/19/2014 Influenza IIV4 (Quadrivalent ) 0.5mL (96543) 02/05/2013 Influenza IIV4 (Quadrivalent ) Fluzone, 65+ [...] Brother 3 Other Maternal Aunt CLL in 90s melanoma Son Amblyopia/Strabismus Negative Family History Blindness [...] Comments Blood Pressure 130/79 03/27/2023 10:25 AM SKATING RINK ICE MAKER Pulse 82 03/27/2023 10:25 AM SKATING RINK ICE MAKER Temperature 36.8 ??C (98.2 ??F) 12/11/2022 9:06 AM CD T Respiratory Rate 16 03/27/2023 10:25 AM SKATING RINK ICE MAKER Oxygen Saturation 98% 12/11/2022 9:06 AM CDT Inhaled Oxygen Concentration - - Weight 62.1 kg (137 lb) 03/27/2023 10:25 AM SKATING RINK ICE MAKER Height 162.6 cm (5' 4) 03/24/2023 2:54 PM SKATING RINK ICE MAKER Body Mass Index 23.52 03/24/2023 2:54 PM SKATING RINK ICE MAKER Plan of Treatment Upcoming Encounters Date Type Department Care Team Description 04/15/2023 10:45 AM SKATING RINK ICE MAKER Appointment [facility] [address] [facility]. [place], [place] [phone] Sin Castorena MD [address] [place] [address] Injection 05/09/2023 9:00 AM SKATING RINK ICE MAKER Appointment [facility] [address] [place] [address] Carey Rashid DO [address] [place], [place] [id number] 05/14/2023 2:15 PM SKATING RINK ICE MAKER Appointment [facility] [address] [place] [place] [id number] Curt Wolfe MD [address] [place] [address] Nurse, Cardiology II [facility] [address] [place] [address] Health Maintenance Due Date Last Done Comments [...] exists Pneumococcal 65+ Yrs Completed 01/28/2017, 10/28/19 15 Hep C Screening (Preventive Services) Completed 10/28/2017 [...] this topic Medical Devices Implanted Type Area Loan Closer Device Identifier Shelf Expiration Date Model / Serial / Lot Bone Lasr [id number] - [id number] Implanted:Qty: 1 on 11/25/2017 by Morgan Avelar MD at [facility] BIOLOGIC N/A: SPINE CERVICAL ANTERIOR Medtronic - SpincalGraft Tech 06/17/2020 [id number] / [id number] / [id number] Description:C5-6 Bone Lasr [id number] - [id number] Implanted:Qty: 1 on 11/25/2017 by Morgan Avelar MD at [facility] DEVICE N/A: SPINE CERVICAL ANTERIOR Medtronic - SpincalGraft Tech 10/03/2019 [id number] / [id number] / [id number] Description:C3-4 Plt Spnl Translational 57.5mm - [id number] Implanted:Qty: 1 on 11/25/2017 by Morgan Avelar MD at [facility] DEVICE N/A: SPINE CERVICAL ANTERIOR Medtronic - Sofamor Danek 11/25/2017 [id number] / NA / NA Scr Sftp Va 4.0x12 - [id number] Implanted:Qty: 2 on 11/25/2017 by Morgan Avelar MD at [facility] DEVICE N/A: SPINE CERVICAL ANTERIOR Medtronic - Sofamor Danek 11/25/2017 [id number] / NA / NA Scr Sftp Va 4.0x14 - [id number] Implanted:Qty: 5 on 11/25/2017 by Morgan Avelar MD at [facility] DEVICE N/A: SPINE CERVICAL ANTERIOR Medtronic - Sofamor Danek 11/25/2017 [id number] / NA / NA Procedures Procedure Name Priority Date/Time Associated Diagnosis Comments EKG 03/31/2023 BASIC METABOLIC PANEL Routine 03/27/2023 10:51 AM SKATING RINK ICE MAKER Essential hypertension (HRC) INR/PROTIME Routine 03/27/2023 10:51 AM SKATING RINK ICE MAKER History of atrial fibrillation COMPLETE BLOOD COUNT-NO DIFF Routine 03/27/2023 10:51 AM SKATING RINK ICE MAKER Dilated aortic root (HRC) ECG 12 LEAD OUTPATIENT Routine 03/24/2023 3:09 PM SKATING RINK ICE MAKER Paroxysmal atrial fibrillation (HRC) URINALYSIS ROUTINE, MICRO/CULTURE IF POS Routine 02/17/2023 11:57 AM SKATING RINK ICE MAKER Stress incontinence of urine from Last 3 Months Results * EKG (03/31/2023) Interface Provider MD EKG * Basic Metabolic Panel (03/27/2023 10:51 AM SKATING RINK ICE MAKER) Sodium 142 136 - 145 mmol/L 03/27/2023 4:45 PM [facility] Potassium 3.7 3.5 - 5.1 mmol/L 03/27/2023 4:45 PM [facility] Chloride 104 98 - 109 mmol/L 03/27/2023 4:45 PM [facility] CO2 25 20 - 29 mmol/L 03/27/2023 4:45 PM [facility] Anion Gap 13 7 - 16 mmol/L 03/27/2023 4:45 PM [facility] Calcium 9.3 8.4 - 10.4 mg/dL 03/27/2023 4:45 PM [facility] BUN 14 7 - 26 mg/dL 03/27/2023 4:45 PM [facility] Creatinine 0.73 0.55 - 1.02 mg/dL 03/27/2023 4:45 PM [facility] Glucose 87 70 - 100 mg/dL 03/27/2023 4:45 PM [facility] Comment:The given reference range is for the fasting state. Non-fasting reference range for glucose is 70 - 180 mg/dL. GFR, Estimated >60 >60 mL/min/1.7 3m2 03/27/2023 4:45 PM [facility] Hours Fasting 0.0 8 - 12 Hours 03/27/2023 4:45 PM [facility] Blood Venipuncture / Unknown 03/27/2023 10:51 AM SKATING RINK ICE MAKER 03/27/2023 10:51 AM [facility] Isidoro Leach MD LAB_1 [facility] [address] [place] [address], [facility] [phone] * Complete Blood Count-No Diff (03/27/2023 10:51 AM [facility]) WBC 9.0 3.5 - 10.5 x10(9)/L 03/27/2023 10:55 AM [facility] RBC 4.17 3.90 - 5.03 x10(12)/L 03/27/2023 10:55 AM [facility] Hemoglobin 12.9 12.0 - 15.5 g/dL 03/27/2023 10:55 AM [facility] HCT 39.5 34.9 - 44.5 % 03/27/2023 10:55 AM [facility] MCV 94.7 80.0 - 100.0 fL 03/27/2023 10:55 AM [facility] MCH 30.9 27.6 - 33.3 pg 03/27/2023 10:55 AM [facility] MCHC 32.7 31.5 - 35.2 g/dL 03/27/2023 10:55 AM [facility] RDW 12.7 11.9 - 15.5 % 03/27/2023 10:55 AM [facility] Platelets 432 150 - 450 x10(9)/L 03/27/2023 10:55 AM [facility] Blood Venipuncture / Unknown 03/27/2023 10:51 AM SKATING RINK ICE MAKER 03/27/2023 10:51 AM SKATING RINK ICE MAKER Isidoro Leach MD LAB_1 Performing Organization Address [facility] Co de Phone Number [facility] [address] [place] [address], [facility] [phone] * INR/Protime (03/27/2023 10:51 AM SKATING RINK ICE MAKER) Pathologist [facility] Protime 12.4 11.8 - 14.6 Seconds 03/27/2023 11:05 AM SKATING RINK ICE MAKER [facility] INR 0.9 0.9 - 1.1 03/27/2023 11:05 AM [facility] Blood Venipuncture / Unknown 03/27/2023 10:51 AM SKATING RINK ICE MAKER 03/27/2023 10:51 AM SKATING RINK ICE MAKER Narrative [facility] - 03/27/2023 11:05 AM SKATING RINK ICE MAKER Therapeutic range determined by protocol established by anticoagulation provider. Isidoro Leach MD LAB_1 Performing Organization Address [facility] Co de Phone Number [facility] [address] [place] [address], [facility] [phone] * ECG 12 Lead Outpatient (03/24/2023 3:09 PM SKATING RINK ICE MAKER) Ventricular Rate 61 BPM [facility] Atrial Rate 61 BPM [facility] P-R Interval 158 ms [facility]USE [facility] QRS Duration 86 ms MUSE [facility] QT 452 ms M[facility] QTc 455 ms MUSE [facility] P [place] 51 degrees MUSE GHP R [place] -8 degrees MUSE GHP T [place] 29 degrees MUSE GHP 03/24/2023 3:09 PM SKATING RINK ICE MAKER Narrative [facility] - 03/24/2023 3:26 PM SKATING RINK ICE MAKER Sinus rhythm Normal ECG When compared with [...] ECG ORDERABLES [facility] [address] [place] [address] * (ABNORMAL) Urinalysis Routine, Micro/Culture if Pos: Clean Catch (02/17/2023 11:57 AM SKATING RINK ICE MAKER) Urine Culture Comment Urinalysis results do not meet criteria for urine culture reflex. 02/17/2023 11:59 AM SKATING RINK ICE MAKER [facility] Urine Color Yellow 02/17/2023 11:59 AM SKATING RINK ICE MAKER [facility] Urine Clarity Clear Clear 02/17/2023 11:59 AM [facility] Specific [place], Urine 1.020 1.005 - 1.030 02/17/2023 11:59 AM SKATING RINK ICE MAKER [facility] PH Urine 5.5 5.0 - 8.0 02/17/2023 11:59 AM [facility] Protein, Urine Qual (mg/dL) Trace Neg/Trace 02/17/2023 11:59 AM [facility] Glucose Urine Qual (mg/dL) Negative Negative 02/17/2023 11:59 AM [facility] Ketones, Urine (mg/dL) Trace(A) Negative 02/17/2023 11:59 AM [facility] Urobilinogen, Urine (EU/dL) 0.2 <2.0 02/17/2023 11:59 AM [facility] Bilirubin Urine Negative Negative 02/17/2023 11:59 AM SKATING RINK ICE MAKER [facility] Blood, Urine Negative Neg/Trace 02/17/2023 11:59 AM SKATING RINK ICE MAKER [facility] Nitrite Urine Negative Negative 02/17/2023 11:59 AM SKATING RINK ICE MAKER [facility] Leukocyte Est. 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
--- OUTSIDE RECORDS SUMMARY | 2023-04-11 16:01 | XMS_ITS | Encounter Summary ---
Author Name Unknown Organization [place] Address [address] [facility] [place] [address] Care Team Providers Care Out And Out Cigar Maker Hand Name Role Phone Carolynn Alvarado Primary Care Provider [phone] Ismael Ordoñez PA-C Unavailable Reason for Referral * Clinically Administered Medications (Routine) - Closed Specialty Diagnoses / Procedures Referred By Contac t Referred To Contact Pain & Palliative Care Diagnoses UNKNOWN Procedures [place] [address] [facility] [address] [place] [address] [facility] Management [address] [facility] [address] [place] [address] Referral ID Status Reason Start Date Expiration Date Visits Re quested Visits Authorized Closed 08/09/2022 08/09/2023 1 1 Reason for Visit * Reason Comments Pain * Consultation (Routine: Next available opening) - Pending Review Specialty Diagnoses / Procedures Referred By Contac t Referred To Contact Pain Medicine Diagnoses S/P lumbar microdiscectomy Lumbar radiculopathy Ismael Ordoñez PA-C [address] [place] [address] Referral ID Status Reason Start Date Expiration Date V isits Requested Visits Authorized Pending Review 08/02/2022 08/02/2023 1 1 Encounter Details Date Type Department Care Team (Latest Contact Info) Description 08/09/2022 10:15 AM CDT Radiology Injection Office Visit [facility] [place] [address] [place] [address] [address] [place], [place] [address] Ismael Ordoñez PA-C [address] [facility] [address] [place], [place] [address] [place]aeann [place]ña [place] [address] [facility] [address] [place] [address] Lumbar radiculopathy (Primary Dx) Social [...] Cordova RN - 08/09/2022 10:15 AM CDT [facility] Procedure Discharge Instructions Today you [...] pain center line during work hours at [phone] on-call physician after hours at [phone]: -Fever over 100 degree F -Swelling, bleeding, [...] Peña MD - 08/09/2022 10:15 AM CDT [facility] - Procedure Note Date of Service: 08/09/2022 Procedure performed: Right L1-2 transforaminal epidural steroid injection with fluoroscopic guidance Diagnosis: Lumbar spondylosis; Lumbar radiculitis/radiculopathy Scabbler: Raeann Peña MD Anesthesia: None Indications: Michelle [...] the patient was advised to contact the [facility] for any of the following: Fever, chills, or night sweats New onset of pain, numbness, or weakness Any questions/concerns regarding the procedure If unable to contact the Pain Center, the patient was instructed to go to a local Emergency Room for any complications. 2. The patient should follow-up with the referring provider Raeann Peña MD [facility] [place] documented in this encounter Nursing Notes * Nissa Su, PLAYERS CLUB REPRESENTATIVE - 08/09/2022 10:15 AM CDT Pre-procedure Intake If YES to any questions or NO to having a construction driver Please complete laminated checklist and leave [...] oral steroids? NO Do you have a construction driver? Yes Are you or ? NA [...] home? Yes Signature/Title: Sofia Cordova RN RN [facility] documented in this encounter [...] from the original result was not included. [facility] - Procedure Note Date of Service: 08/09/2022 Procedure performed: Right L1-2 ??transforaminal epidural steroid injection with fluoroscopic guidance Diagnosis: Lumbar spondylosis; Lumbar radiculitis/radiculopathy Scabbler: Raeann Peña MD Anesthesia: None Indications: Michelle [...] the patient was advised to contact the [facility] for any of the following: Fever, chills, or night sweats New onset of pain, numbness, or weakness Any questions/concerns regarding the procedure If unable to contact the Pain Center, the patient was instructed to go to a local Emergency Room for any complications. 2. The patient should follow-up with the referring provider Raeann Peña MD [facility] Raeann Peña MD [facility] PAIN MANAGEMENT ORDERABLES documented in this encounter [...] mLs documented in this encounter Care Teams Out And Out Cigar Maker Hand Relationship Specialty Start Date End Date Carolynn Alvarado PCP - General 05/30/16 Ismael Ordoñez PA-C [address] [place] [address] Assigned Neuroscience Provider 12/03/20 documented as of this encounter
--- OUTSIDE RECORDS SUMMARY | 2023-04-11 16:01 | XMS_ITS | Encounter Summary ---
Author Name Unknown Organization [place] Address [address] [facility] [address] Care Team Providers Care Rack Loader Name Role Phone Carolynn Alvarado Primary Care Provider [phone] Morgan Avelar MD Unavailable Ismael Ordñoez PA-C Unavailable [phone] Ismael Ordoñez PA-C Unavailable [phone] Reason for Visit * Reason Onset Date Comments Procedure 04/23/2016 Epidural Steroid (transforaminal approach): Lumbar right L4-5 Encounter Details Date Type Department Care Team ([facility] st Contact Info) Description 04/23/2016 Telephone [facility] [place] [id number] [place] [address] [address] [place] [address] Pain Management Program, [facility] Procedure (Epidural Steroid (transforaminal approach): Lumbar [...] be done at which interventional clinic site? [facility] Procedure ordered by Dr. Elaine Antonio [...] or notify pt of denial. Is an simplex printer installer needed? No Patient has a drive home? [...] ?? If so, was it done at [place]? No ?? If not, where was it done[facility] Was the MRI done w/in the last 3 years? Yes If MRI was not done at [place], [facility] or [facility] Imaging do NOT schedule. Route to nursing. [...] patient have any questions? NO Rangel Doyle.[facility] ANICAL DESIGN DRAFTER documented in this encounter Plan of Treatment Not on file documented as of this encounter Visit Diagnoses Not on filedocumented in this encounter Care Teams Rack Loader Relationship Specialty Start Date End Date Hilario Alvaradocrystal Busby PCP - General 05/30/16 [place] [address] [place], [place] [address] Assigned Neuroscience Provider 01/30/20 12/02/20 Ismael Ordoñez PA-C [address] [place] [address] Assigned Surgical Provider 05/31/2003/06 Ismael Ordoñez PA-C [address] [place] [id number] Assigned Neuroscience Provider 12/03/20 documented as of this encounter
--- OUTSIDE RECORDS SUMMARY | 2023-04-11 16:01 | XMS_ITS | Encounter Summary ---
Author Name Unknown Organization [place] Address [address] [facility] [place] [address] Care Team Providers Care Rate Inserter Name Role Phone Carolynn Alvarado Primary Care Provider [phone] Ismael Ordoñez PA-C Unavailable [phone] Encounter Details Date Type Department Care Team [...] on filedocumented in this encounter Care Teams Rate Inserter Relationship Specialty Start Date End Date Carolynn Alvarado PCP - General 05/30/16 Ismael Ordoñez PA-C [address] [place] [id number] Assigned Neuroscience Provider 12/03/20 documented as of this encounter
--- OUTSIDE RECORDS SUMMARY | 2023-04-11 16:01 | XMS_ITS | Encounter Summary ---
Author Name Unknown Organization [place] Address [address] [facility] [place] [address] Care Team Providers Care Hairmasters Manager Name Role Phone Carolynn Alvarado Primary Care Provider [phone] Ismael Ordoñez PA-C Unavailable [phone] Encounter Details Date Type Department Care Team [...] COVID-19? No / Unsure 03/03/2021 9:08 AM AUTOMATION APPLICATION ENGINEER documented as of this encounter Plan of Treatment Not on file documented as of this encounter Visit Diagnoses Not on filedocumented in this encounter Care Teams Hairmasters Manager Relationship Specialty Start Date End Date Carolynn Alvarado PCP - General 05/30/16 Ismael Ordoñez PA-C [address] [place] [address] Assigned Neuroscience Provider 12/03/20 documented as of this encounter
--- OUTSIDE RECORDS SUMMARY | 2023-04-11 16:01 | XMS_ITS | Encounter Summary ---
Author Name Unknown Organization [place] Address [address] [facility] [place] [address] Care Team Providers Care Education Director Name Role Phone Carolynn Alvarado Primary Care Provider [phone] Ismael Ordoñez PA-C Unavailable Reason for Visit * Reason Onset Date Comments Procedure 08/05/2022 Right L1-2 TFESI Encounter Details Date Type Department Care Team (Late st Contact Info) Description 08/05/2022 Telephone [facility] [place] [address] [facility] [address] [place] [address] Pain Management Program, [facility] Procedure (Right L1-2 TFESI) Social History Tobacco [...] be done at which interventional clinic site? [facility] Procedure ordered by Ismael Ordoñez PA-C Procedure ordered? Right L1-2 TFESI ??? Transforaminal Cervical TOM - Send to [facility] - No [facility] Site providers perform this procedure What insurance would patient like us to bill for this procedure? MEDICARE and MEDICA ?? IF SCHEDULING IN [place] PA[place] OR SPINE PLEASE SCHEDULE AT LEAST [...] to Elsa Zuniga Is patient scheduled at [facility]? If YES, route every encounter to [facility] CARE NAVIGATION POOL [[phone]] Is an tape librarian needed? No Patient has a otr driver home? (Review Grid) YES: Informed Any chance of ? NO If YES, do NOT schedule and route to pool table operator - Dr. Miller route to Rachna Mcbride and PM&R Nurse [[id number]] Is patient actively being treated for cancer or immunocompromised? No If YES, do NOT schedule and route to pool table operator/ Dr. Miller's Team Does the patient have a bleeding or clotting disorder? No ?? If YES, okay to schedule AND route to RN nurse celsa/ Dr. Miller's Team ?? (For any patients with platelet count <100, RN must forward to provider) Is patient taking any Blood Thinners OR Antiplatelet medication? No If hold needed, do NOT schedule, route to pool table operator/ Dr. Miller's Team ??? Examples: o Blood [...] patient have any questions? NO Elaine Jensen [facility] documented in this encounter Plan of Treatment Not on file documented as of this encounter Visit Diagnoses Not on filedocumented in this encounter Care Teams Education Director Relationship Specialty Start Date End Date Carolynn Alvarado PCP - General 05/30/16 Ismael Ordoñez PA-C [address] [place] [address] Assigned Neuroscience Provider 12/03/20 documented as of this encounter
--- OUTSIDE RECORDS SUMMARY | 2023-04-11 16:02 | XMS_ITS | Encounter Summary ---
Author Name Unknown Organization [facility] Address [address] [place] [address] Care Team Providers Care Repack Room Worker Name Role Phone Carolynn Alvarado MD Primary Care Provider [phone] Reason for Visit * Reason Comments Follow-up Encounter Details Date Type Department Care Team Description 12/27/2022 10:45 AM CDT Office Visit [facility] [address] [facility]. [place], [place] [address] Sin Castorena MD [address] [place], [place] [address] Exudative age-related macular degeneration of right eye [...] to keep the eye closed or use [id number] artificial tears for comfort. You may see [...] Eye discharge (other than tears/bloody tears) Call [phone] with any problems. documented in this encounter [...] Eylea 0.05 mL (2 mg) Lot number: [id number], Exp 04/15/2024 Anesthesia: tetracaine, lidocaine gel 5% [...] Department Care Team Description 04/15/2023 10:45 AM CONTRACT WRITER Appointment [facility] [address] [place] [address] [address] [facility] [place] [address] Sin Castorena MD [address] [place], [place] [phone] Injection 05/09/2023 9:00 AM CONTRACT WRITER Appointment [facility] Medicine [address] [place], [place] [id number] Carey Rashid DO [address] [place] [address] 05/14/2023 2:15 PM CONTRACT WRITER Appointment [facility] [address] [place] [address] Curt Wolfe MD [address] [place] [address] Nurse, Cardiology II [place] [place] [address] documented as of this encounter Visit [...] both eyes Lens replaced by other means Exudative age-related macular degeneration of right eye [...] Given 12/27/2022 12:09 PM CDT 2 mg [facility] documented in this encounter Additional Health Concerns Infection Onset Date Last Indicated Resolved Time 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
--- OUTSIDE RECORDS SUMMARY | 2023-04-11 16:02 | XMS_ITS | Encounter Summary ---
Author Name Unknown Organization [facility] Address [address] [place] [address] Care Team Providers Care Aerial Tram Operator Name Role Phone Carolynn Alvarado MD Primary Care Provider [phone] Encounter Details Date Type Department Care Team Description 03/27/2023 11:00 AM CARPENTER MOLD Lab Visit [address] [address] Dilated aortic root (HRC); History of atrial [...] Department Care Team Description 04/15/2023 10:45 AM CARPENTER MOLD Appointment [facility] [address] [facility] [place], [place] [address] Sin Castorena MD [address] [place], [place] [address] Injection 05/09/2023 9:00 AM CARPENTER MOLD Appointment [facility] Medicine [address] [place] [address] Carey Rashid DO [address] [place], [place] [address] 05/14/2023 2:15 PM CARPENTER MOLD Appointment [place] [facility] [address] [facility]. [place] [id number] Curt Wolfe MD [address] [place], [place] [phone] Nurse, Cardiology II [facility] [facility] [address] [facility]. [place] [phone] documented as of this encounter Procedures Procedure Name Priority Date/Time Associated Diagnosis Comments BASIC METABOLIC PANEL Routine 03/27/2023 10:51 AM CARPENTER MOLD Essential hypertension (HRC) COMPLETE BLOOD COUNT-NO DIFF Routine 03/27/2023 10:51 AM CARPENTER MOLD Dilated aortic root (HRC) INR/PROTIME Routine 03/27/2023 10:51 AM CARPENTER MOLD History of atrial fibrillation documented in this encounter Results * Basic Metabolic Panel (03/27/2023 10:51 AM CARPENTER MOLD) Sodium 142 136 - 145 mmol/L 03/27/2023 4:45 PM [facility] Potassium 3.7 3.5 - 5.1 mmol/L 03/27/2023 4:45 PM [facility] Chloride 104 98 - 109 mmol/L 03/27/2023 4:45 PM [facility] CO2 25 20 - 29 mmol/L 03/27/2023 4:45 PM [facility] Anion Gap 13 7 - 16 mmol/L 03/27/2023 4:45 PM [facility] Calcium 9.3 8.4 - 10.4 mg/dL 03/27/2023 4:45 PM [facility] BUN 14 7 - 26 mg/dL 03/27/2023 4:45 PM [facility] Creatinine 0.73 0.55 - 1.02 mg/dL 03/27/2023 4:45 PM [facility] Glucose 87 70 - 100 mg/dL 03/27/2023 4:45 PM [facility] Comment:The given reference range is for the fasting state. Non-fasting reference range for glucose is 70 - 180 mg/dL. GFR, Estimated >60 >60 mL/min/1.7 3m2 03/27/2023 4:45 PM [facility] Hours Fasting 0.0 8 - 12 Hours 03/27/2023 4:45 PM [facility] Blood Venipuncture / Unknown 03/27/2023 10:51 AM CARPENTER MOLD 03/27/2023 10:51 AM CARPENTER MOLD Isidoro Leach MD LAB_1 [facility] [address] [place] [address], [facility] [phone] * INR/Protime (03/27/2023 10:51 AM CARPENTER MOLD) Protime 12.4 11.8 - 14.6 Seconds 03/27/2023 11:05 AM [facility] INR 0.9 0.9 - 1.1 03/27/2023 11:05 AM [facility] Blood Venipuncture / Unknown 03/27/2023 10:51 AM CARPENTER MOLD 03/27/2023 10:51 AM CARPENTER MOLD Narrative [facility] - 03/27/2023 11:05 AM CARPENTER MOLD Therapeutic range determined by protocol established by anticoagulation provider. Isidoro Leach MD LAB_1 [facility] [address] [place] [address], [facility] [phone] * Complete Blood Count-No Diff (03/27/2023 10:51 AM CARPENTER MOLD) WBC 9.0 3.5 - 10.5 x10(9)/L 03/27/2023 10:55 AM [facility] RBC 4.17 3.90 - 5.03 x10(12)/L 03/27/2023 10:55 AM [facility] Hemoglobin 12.9 12.0 - 15.5 g/dL 03/27/2023 10:55 AM [facility] HCT 39.5 34.9 - 44.5 % 03/27/2023 10:55 AM [facility] MCV 94.7 80.0 - 100.0 fL 03/27/2023 10:55 AM [facility] MCH 30.9 27.6 - 33.3 pg 03/27/2023 10:55 AM [facility] MCHC 32.7 31.5 - 35.2 g/dL 03/27/2023 10:55 AM [facility] RDW 12.7 11.9 - 15.5 % 03/27/2023 10:55 AM [facility] Platelets 432 150 - 450 x10(9)/L 03/27/2023 10:55 AM [facility] Blood Venipuncture / Unknown 03/27/2023 10:51 AM CARPENTER MOLD 03/27/2023 10:51 AM [facility] Isidoro Leach MD LAB_1 [facility] [address] [place] [address], [facility] [phone] documented in this encounter Visit Diagnoses Diagnosis Dilated aortic root (HRC) Aortic ectasia, unspecified site History of atrial fibrillation Personal history of other diseases of circulatory system Essential hypertension (HRC) Unspecified essential hypertension 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
--- OUTSIDE RECORDS SUMMARY | 2023-04-11 16:02 | XMS_ITS | Encounter Summary ---
Author Name Unknown Organization [facility] Address [address], [place] [address] Care Team Providers Care Wall Covering Installer Name Role Phone Carolynn Alvarado MD Primary Care Provider [phone] Reason for Visit * Reason Comments Spine Lumbar Encounter Details Date Type Department Care Team Description 01/31/2023 11:15 AM COMPENSATION MANAGER Therapy [facility] [address] [address] Rona Mcgrath, PT [address] [place] [address] Chronic bilateral low back pain, [...] Current Home Exercise Program List: Access Code: [email or web address] URL: [email or web address] See above ASSESSMENT/PROGRESS TOWARD GOALS: Pain level [...] measures and no change with her pain. ENSATION MANAGER documented in this encounter Plan of Treatment Upcoming Encounters Date Type Department Care Team Description 04/15/2023 10:45 AM COMPENSATION MANAGER Appointment [facility] [address] [facility] [place], [place] [address] Sin Castorena MD [address] [place] [address] Injection 05/09/2023 9:00 AM COMPENSATION MANAGER Appointment [facility] [address] [place], [place] [phone] Carey Rashid DO [address] [place], [place] [phone] 05/14/2023 2:15 PM COMPENSATION MANAGER Appointment [facility] [address] [facility] 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
--- OUTSIDE RECORDS SUMMARY | 2023-04-11 16:02 | XMS_ITS | Encounter Summary ---
Author Name Unknown Organization [facility] Address [address] [place] [address] Care Team Providers Care Ductfixing Plumber Name Role Phone Carolynn Alvarado MD Primary Care Provider [phone] Encounter Details Date Type Department Care Team Description 02/19/2023 [facility] [address] [facility] [place] [address] Mychart, [place] [address] Social History Tobacco Use Types Packs/Day Years [...] Department Care Team Description 04/15/2023 10:45 AM EDUCATIONAL PSYCHOLOGY PROFESSOR Appointment [facility] [address] [facility]. [place], [place] [address] Sin Castorena MD [address] [place] [address] Injection 05/09/2023 9:00 AM EDUCATIONAL PSYCHOLOGY PROFESSOR Appointment [facility] Medicine [address] [place], [place] [phone] Carey Rashid DO [address] [place], [place] [address] 05/14/2023 2:15 PM EDUCATIONAL PSYCHOLOGY PROFESSOR Appointment [facility] [address] [facility] [place] [phone] Curt Wolfe MD [address] [place], [place] [phone] Nurse, Cardiology II [facility] [address] [facility] [place], [place] [phone] documented as of this encounter Visit Diagnoses Not on filedocumented in this encounter Additional Health Concerns Infection Onset Date Last Indicated Resolved Time 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
--- OUTSIDE RECORDS SUMMARY | 2023-04-11 16:02 | XMS_ITS | Encounter Summary ---
Author Name Unknown Organization [facility] Address [address], [place] [address] Care Team Providers Care Coin Machine Assembler Name Role Phone Carolynn Alvarado MD Primary Care Provider [phone] Reason for Visit * Reason Comments Injection Encounter Details Date Type Department Care Team Description 02/03/2023 10:30 AM CERAMIC WORKER Office Visit [facility] [address] [facility]. [place], [place] [address] Sin Castorena MD [address] [place], [place] [address] Exudative age-related macular degeneration of right eye [...] Sin Castorena MD - 02/03/2023 10:30 AM CERAMIC WORKER Control your blood pressure, blood sugar and [...] to keep the eye closed or use pgwv-qkf-kejliac artificial tears for comfort. You may see [...] Eye discharge (other than tears/bloody tears) Call [phone] with any problems. MIC WORKER documented in this encounter Progress Notes [...] the patient and family- Sin Castorena MD MIC WORKER documented in this encounter Procedure Notes * Sin Castorena MD - 02/03/2023 10:30 AM CST Intravitreal Injection Operative Report Eye: Right Surgeon: Sin Castorena MD Medicaton: Eylea 0.05 mL (2 mg) Lot number: [id number], Exp 05/14/24 Anesthesia: tetracaine, lidocaine gel 5% [...] of a peripheral shadow in the vision. MIC WORKER documented in this encounter Plan of Treatment Upcoming Encounters Date Type Department Care Team Description 04/15/2023 10:45 AM CERAMIC WORKER Appointment [address] [facility]. [place], [place] [address] Sin Castorena MD [address] [place], [place] [phone] Injection 05/09/2023 9:00 AM CERAMIC WORKER Appointment [facility] Medicine [address] [place] [address] Carey Rashid DO [address] [place], [place] [id number] 05/14/2023 2:15 PM CERAMIC WORKER Appointment [facility] [address] [facility] 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 Epiretinal membrane, left eye Macular puckering of retina documented in this encounter Administered Medications Inactive Administered Medications - up to 3 most recent administrations Medication Order MAR Action Action Date Dose Rate Site aflibercept (EYLEA) injection 2 mg 2 mg, Intravitreal, ONCE, On 02/03/23 at 1200, For 1 dose, HIGH ALERT medication HAZARDOUS DRUG Administration: Double glove, chemo gown; if no closed-system drug-transfer device (CSTD), include eye protection Must be given by trained nurse (antineoplastic, chemotherapeutic, or cytotoxic medication) Given 02/03/2023 11:31 AM CERAMIC WORKER 2 mg Righ t Eye documented in this encounter Additional Health Concerns Infection Onset Date Last Indicated Resolved Time 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
--- OUTSIDE RECORDS SUMMARY | 2023-04-11 16:02 | XMS_ITS | Encounter Summary ---
Author Name Unknown Organization [facility] Address [address] [place] [address] Care Team Providers Care Care Clinician Name Role Phone Carolynn Alvarado MD Primary Care Provider [phone] Reason for Visit * Reason Comments Spine Lumbar * Therapies (Routine) - New Request Specialty Diagnoses / Procedures Referred By Cecille concepcion Referred To Contact Physical Therapy Diagnoses Low back pain (HRC) Radiculopathy, lumbar region Back Pain Syndrome Radiculopathy Thor/Lumb Neuritis Referred by: Isai Foss [facility] , Clinician, Not Found, [place] [address] [facility] Physical [facility] [address] [place] [address] Referral ID Status Reason Start Date Expiration Date V isits Requested Visits Authorized [id number] New Request 01/13/2023 04/13/2024 1 1 Encounter Details Date Type Department Care Team Description 01/14/2023 1:30 PM CDT Therapy [facility] [place] [address] [place] [address] Rona Mcgrath, PT [address] [place] [address] Chronic bilateral low back pain, [...] Mcgrath, PT - 01/14/2023 1:[address] [facility] Physical Therapy - Lumbar Spine Evaluation/Plan of Care Initial Certification Period: 01/14/2023 to 04/14/23 Referring Provider: Isai Foss MD [facility] [place] FAX [phone] Visit Diagnosis: 1. 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 [address] [facility] [place], [place] [address] Sin Castorena MD [address] [place], [place] [address] Injection 05/09/2023 9:00 AM TEA BLENDER Appointment [facility] Medicine [address] [place], [place] [address] Carey Rashid DO [address] [place], [place] [address] 05/14/2023 2:15 PM TEA BLENDER Appointment [facility] [address] [facility] [place] [address] Curt Wolfe MD [address] [place] [address] Nurse, Cardiology II [facility] [address] [id number] documented as of this encounter Visit Diagnoses [...] documented as of this encounter Care Teams Care Clinician Relationship Specialty Start [place] [address] [address] [place] [address] PCP - General Internal Medicine 11/09/15 documented as of this encounter
--- OUTSIDE RECORDS SUMMARY | 2023-04-11 16:02 | XMS_ITS | Encounter Summary ---
Author Name Unknown Organization [facility] Address [address] [place] [address] Care Team Providers Care Survey Technician Name Role Phone Carolynn Alvarado MD Primary Care Provider [phone] Reason for Referral * Procedure/Equipment (Routine) - New Request Specialty Diagnoses / Procedures Referred By Cecille t Referred To Contact Diagnoses Paroxysmal atrial fibrillation (HRC) Curt Wolfe MD [address] [place] [address] Referral ID Status Reason Start Date Expiration Date V isits Requested Visits Authorized [id number] New Request 03/24/2023 06/22/2024 1 1 Scheduling Instructions Your clinician has recommended an appointment with Veda Dudley. You may call [phone] to schedule your appointment. We suggest you call your health insurance company about your coverage and benefits for this appointment. Question Answer Appointment Urgency? Non-Urgent Monitoring timeframe: 8 -15 days Comments Patient to receive monitor: By mail RED CABLE MACHINE OPERATOR Reason for Visit * Reason Comments Follow-up Atrial Fibrillation Encounter Details Date Type Department Care Team Description 03/24/2023 3:15 PM ARMORED CABLE MACHINE OPERATOR Office Visit [facility] [address] [facility]. [place] [address] Curt Wolfe MD [address] [place] [address] Nurse, Cardiology II [facility] [place] [address] [facility] [place] [address] Paroxysmal atrial fibrillation (HRC) (Primary Dx); Nonrheumatic [...] Comments Blood Pressure 140/78 03/24/2023 3:35 PM ARMORED CABLE MACHINE OPERATOR Pulse 2 03/24/2023 4:10 PM ARMORED CABLE MACHINE OPERATOR Temperature - - Respiratory Rate - - Oxygen Saturation - - Inhaled Oxygen Concentration - - Weight 62.1 kg (137 lb) 03/24/2023 2:54 PM ARMORED CABLE MACHINE OPERATOR Height 162.6 cm (5' 4) 03/24/2023 2:54 PM ARMORED CABLE MACHINE OPERATOR Body Mass Index 23.52 03/24/2023 2:54 PM ARMORED CABLE MACHINE OPERATOR documented in this encounter Patient Instructions * Patient Instructions* Curt Wolfe MD - 03/24/2023 3:15 PM ARMORED CABLE MACHINE OPERATOR Images from the original note were not [...] COVERAGE OF THE ORDERED TESTS. PLEASE CALL [phone] TO GET A PRELIMINARY ASSESSMENT OF THE COST, IF THE INSURANCE DOES NOT COVER THE TEST. ZIOPATCH MONITOR FOLLOW UP: 3-4 MONTHS. EXERCISE: Please try to exercise at moderate intensity at least 30 minutes at least 5 days a week. CONTACT INFORMATION: Please call at [phone] (Ms Aspen Otto RN) if you have any routine question between 8 AM and 5 PM. If you have any urgent question between 5 PM to 8 AM and also over the weekends and holidays, please call at [phone] ([facility] care line) If you have any symptom which needs immediate attention, please go to the urgent care or ER depending on your concern. It is my pleasure taking care of you. Curt Wolfe MD Steel Sash Erector outside installer apprentice [facility] heart and vascular [address], [facility]. [place] [address] RED CABLE MACHINE OPERATOR documented in this encounter Progress Notes [...] She was not anticoagulated. She presented to [facility] on February 23, 2023 with [...] [facility] MEDICAL H[facility]ORY PERTINENT TO CARDIOVASCULAR [...] She used to work at the [employer]. 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 FAMILY HISTORY: REVIEWED AND UPDATED IN THE EMR. REVIEW OF SYSTEMS: Per history of present illness. The rest of the complete review of systems were done and was found to be negative apart from aforementioned. PHYSICAL EXAMINATION BP (!) 140/78 Pulse (!) 2 Ht 5' 4 (162.6 cm) Wt 137 lb (26722 g) BMI 23.52 kg/m?? Head, Eyes, ENT: [...] interpreted by me: Normal sinus rhythm. Normal OR interval. Normal axis. Normal QT interval and [...] Apple watch to monitor her pulse. Hypertension Npap-gu-rocgivca aortic insufficiency Mild dilatation of the aorta [...] contact me. Thanks again. Curt Wolfe MD Steel Sash Erector Mineral Engineer [facility] Vascular [place] Patient Instructions Dear Ms. Franz This is my recommendation for you: MEDICATIONS: NO CHANGE Please check your blood pressure. Goal of blood pressure = 130/80 or less. Please watch your salt intake. Daily intake of salt/sodium = 2000 mg RECOMMENDED FURTHER TESTING: I WILL UPDATE YOU THE REPORTS BECOME AVAILABLE. PLEASE DISCUSS WITHYOUR INSURANCE REGARDING COVERAGE OF THE ORDERED TESTS. PLEASE CALL [phone] TO GET A PRELIMINARY ASSESSMENT OF THE COST, IF THE INSURANCE DOES NOT COVER THE TEST. ZIOPATCH MONITOR FOLLOW UP: 3-4 MONTHS. EXERCISE: Please try to exercise at moderate intensity at least 30 minutes at least 5 days a week. CONTACT INFORMATION: Please call at [phone] (Ms Aspen Otto RN) if you have any routine question between 8 AM and 5 PM. If you have any urgent question between 5 PM to 8 AM and also over the weekends and holidays, please call at [phone] ([facility]) If you have any symptom which needs immediate attention, please go to the urgent care or ER depending on your concern. It is my pleasure taking care of you. Curt Wolfe MD Steel Sash Erector outside installer apprentice [facility] vascular [address], [facility]. [place] [id number] Total time: 40 minutes including review of [...] to contact me to address any errors. RED CABLE MACHINE OPERATOR documented in this encounter Plan of Treatment Upcoming Encounters Date Type Department Care Team Description 04/15/2023 10:45 AM ARMORED CABLE MACHINE OPERATOR Appointment [facility] [address] [facility]. [place], [place] [id number] Sin Castorena MD [address] [place], [place] [address] Injection 05/09/2023 9:00 AM ARMORED CABLE MACHINE OPERATOR Appointment [facility] Medicine [address] [place], [place] [phone] Carey Rashid DO [address] [place] [address] 05/14/2023 2:15 PM ARMORED CABLE MACHINE OPERATOR Appointment [facility] [address] [facility] [place] [address] Curt Wolfe MD [address] [place] [address] Nurse, Cardiology II [facility] [place] [facility] [address] [place] [address] Scheduled Referrals Name Type Priority Associated Diagnoses Orde r Schedule ZIOPATCH Holter Adults/Peds Referral Routine Paroxysmal atrial fibrillation (HRC) Ordered: 03/24/2023 documented as of this encounter Procedures Procedure Name Priority Date/Time Associated Diagnosis Comments ECG 12 LEAD OUTPATIENT Routine 03/24/2023 3:09 PM ARMORED CABLE MACHINE OPERATOR Paroxysmal atrial fibrillation (HRC) documented in this encounter Results * ECG 12 Lead Outpatient (03/24/2023 3:09 PM ARMORED CABLE MACHINE OPERATOR) Ventricular Rate 61 BPM MUSE GHP Atrial Rate 61 BPM MUSE GHP P-R Interval 158 ms MUSE GHP QRS Duration 86 ms MUSE GHP QT 452 ms MUSE GHP QTc 455 ms MUSE GHP P [place] 51 degrees MUSE GHP R [place] -8 degrees MUSE GHP T [place] 29 degrees MUSE GHP 03/24/2023 3:09 PM ARMORED CABLE MACHINE OPERATOR Narrative GEORGE GARCIA - 03/24/2023 3:26 PM ARMORED CABLE MACHINE OPERATOR Sinus rhythm Normal ECG When compared with ECG of 26-APR-2021 16:44, No significant change was found Confirmed by Curt Wolfe ([id number]) on 03/24/2023 3:26:04 PM Procedure Note Curt Wolfe MD - 03/24/2023 Sinus rhythm Normal ECG When compared with ECG of 26-APR-2021 16:44, No significant change was found Confirmed by Curt Wolfe ([id number]) on 03/24/2023 3:26:04 PM Curt Wolfe MD PN ECG ORDERABLES GEORGE SHAIKH [address] [place] [address] documented in this encounter Visit Diagnoses Diagnosis Paroxysmal atrial fibrillation (HRC)- Primary Atrial fibrillation Nonrheumatic aortic valve insufficiency (HRC) Aortic valve disorders Essential hypertension (HRC) Unspecified essential hypertension Mixed hyperlipidemia (HRC) Mixed hyperlipidemia Dilated aortic root (HRC) Aortic ectasia, unspecified site 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
--- OUTSIDE RECORDS SUMMARY | 2023-04-11 16:02 | XMS_ITS | Encounter Summary ---
Author Name Unknown Organization [facility] Address [address], [place] [address] Care Team Providers Care Industrial Economist Name Role Phone Carolynn Alvarado MD Primary Care Provider [phone] Encounter Details Date Type Department Care Team Description 01/31/2023 Notes/Orders [facility] [address] [id number] Rona Mcgrath, PT [address] [place] [address] Social History Tobacco Use Types [...] recommended that Michelle return to the physician. L HANDLER documented in this encounter Plan of Treatment Upcoming Encounters Date Type Department Care Team Description 04/15/2023 10:45 AM STEEL HANDLER Appointment [facility] [address] [facility]. [place], [place] [phone] Sin Castorena MD [address] [place], [place] [address] Injection 05/09/2023 9:00 AM STEEL HANDLER Appointment [facility] [address] [place], [place] [phone] Carey Rashid DO [address] [place], [place] [phone] 05/14/2023 2:15 PM STEEL HANDLER Appointment [facility] [address] [facility] 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
--- OUTSIDE RECORDS SUMMARY | 2023-04-11 16:02 | XMS_ITS | Encounter Summary ---
Author Name Unknown Organization [facility] Address [address] [place] [address] Care Team Providers Care Student Truck Driver Name Role Phone Carolynn Alvarado MD Primary Care Provider [phone] Reason for Referral * Consult/Transfer Care (Routine) - New Request Specialty Diagnoses / Procedures Referred By Cecille concepcion Referred To Contact Diagnoses Stress incontinence of urine Margareth Edwards APRN, CNM [address] [place] [address] Referral ID Status Reason Start Date Expiration Date V isits Requested Visits Authorized [id number] New Request 02/17/2023 05/18/2024 1 1 Scheduling Instructions Your clinician has recommended an appointment with [facility]. You can quickly make your appointment online at Somo/schedule. You can also call [phone] for help scheduling your appointment. We suggest you call your health insurance company about your coverage and benefits for this appointment. Question Answer Appointment Urgency? Non-Urgent Reason for visit? urinary incontinence, cystocele, hx bladder repair in 1979 FORMER Reason for Visit * Reason Comments CONSULT Encounter Details Date Type Department Care Team Description 02/17/2023 11:15 AM SKIN FORMER Office Visit [place] [address] Obstetrics/Gynecolog y [address] [place] [address] Margareth Edwards APRN, ANGELA [address] [place] [address] Stress incontinence of urine (Primary [...] Comments Blood Pressure 130/66 02/17/2023 11:24 AM SKIN FORMER Pulse 68 02/17/2023 11:24 AM SKIN FORMER Temperature - - Respiratory Rate - - Oxygen Saturation - - Inhaled Oxygen Concentration - - Weight 61.8 kg (136 lb 3.2 oz) 02/17/2023 11:24 AM SKIN FORMER Height - - Body Mass Index 23.38 10/07/2022 9:06 AM CDT documented in this encounter Progress Notes * Margareth Edwards APRN, ANGELA - 02/17/2023 11:15 AM CST SUPERVISOR SHRIMP POND Office Visit Subjective: Michelle Franz is a [...] urethra; atrophy consistent with post- menopausal tissues. [place], moist vaginal and cervical mucosa, without lesions. [...] vaginal dryness. UA. Billing based on: Complexity FORMER documented in this encounter Plan of Treatment Upcoming Encounters Date Type Department Care Team Description 04/15/2023 10:45 AM SKIN FORMER Appointment [facility] [address] [facility] [place] [address] Sin Castorena MD [address] [place] [address] Injection 05/09/2023 9:00 AM SKIN FORMER Appointment [facility] [address] [place], [place] [address] Carey Rashid DO [address] [place] [address] 05/14/2023 2:15 PM SKIN FORMER Appointment [facility] [address] [place] [address] Curt Wolfe MD [address] [place], [place] [address] Nurse, Cardiology II [facility] [address] [place] [address] Scheduled Referrals Name Type Priority Associated Diagnoses Orde r Schedule Urogynecology Consult-Adult Referral Routine Stress incontinence of urine Ordered: 02/17/2023 documented as of this encounter Results * (ABNORMAL) Urinalysis Routine, Micro/Culture if Pos: Clean Catch (02/17/2023 11:57 AM SKIN FORMER) Urine Culture Comment Urinalysis results do not meet criteria for urine culture reflex. 02/17/2023 11:59 AM SKIN FORMER [facility] Urine Color Yellow 02/17/2023 11:59 AM SKIN FORMER [facility] Urine Clarity Clear Clear 02/17/2023 11:59 AM SKIN FORMER [facility] Specific [place], Urine 1.020 1.005 - 1.030 02/17/2023 11:59 AM SKIN FORMER [facility] PH Urine 5.5 5.0 - 8.0 02/17/2023 11:59 AM SKIN FORMER [facility] Protein, Urine Qual (mg/dL) Trace Neg/Trace 02/17/2023 11:59 AM SKIN FORMER [facility] Glucose Urine Qual (mg/dL) Negative Negative 02/17/2023 11:59 AM SKIN FORMER [facility] Ketones, Urine (mg/dL) Trace(A) Negative 02/17/2023 11:59 AM SKIN FORMER [facility] Urobilinogen, Urine (EU/dL) 0.2 <2.0 02/17/2023 11:59 AM SKIN FORMER [facility] Bilirubin Urine Negative Negative 02/17/2023 11:59 AM SKIN FORMER [facility] Blood, Urine Negative Neg/Trace 02/17/2023 11:59 AM SKIN FORMER [facility] Nitrite Urine Negative Negative 02/17/2023 11:59 AM SKIN FORMER [facility] Leukocyte Est. 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
--- OUTSIDE RECORDS SUMMARY | 2023-04-11 16:02 | XMS_ITS | Encounter Summary ---
Author Name Unknown Organization [facility] Address [address], [place] [address] Care Team Providers Care Stock Preparation Operator Name Role Phone Carolynn Alvarado MD Primary Care Provider [phone] Reason for Visit * Reason Comments Injection Encounter Details Date Type Department Care Team Description 03/03/2023 1:45 PM LEARNING TECHNOLOGIES SPECIALIST Office Visit [facility] [address] [facility] [address] Sin Castorena MD [address] [place], [place] [phone] Exudative age-related macular degeneration of right eye [...] Satish Carrillo COA - 03/03/2023 1:45 PM LEARNING TECHNOLOGIES SPECIALIST Control your blood pressure, blood sugar and [...] to keep the eye closed or use kugc-bwu-imuzlpt artificial tears for comfort. You may see [...] Eye discharge (other than tears/bloody tears) Call [phone] with any problems. NING TECHNOLOGIES SPECIALIST documented in this encounter Progress Notes * [...] the patient and family- Sin Castorena MD NING TECHNOLOGIES SPECIALIST documented in this encounter Procedure Notes * Satish Carrillo COA - 03/03/2023 1:45 PM CST Intravitreal Injection Operative Report Eye: Right Surgeon: Sin Castorena MD Medicaton: Eylea 0.05 mL (2 mg) Lot number: [id number], Exp 04/2024 Anesthesia: tetracaine, lidocaine gel 5% [...] of a peripheral shadow in the vision. NING TECHNOLOGIES SPECIALIST documented in this encounter Plan of Treatment Upcoming Encounters Date Type Department Care Team Description 04/15/2023 10:45 AM LEARNING TECHNOLOGIES SPECIALIST Appointment [place] [address] [facility]. [place], [place] [address] Sin Castorena MD [address] [place], [place] [phone] Injection 05/09/2023 9:00 AM LEARNING TECHNOLOGIES SPECIALIST Appointment [facility] [address] [place] [address] Carey Rashid DO [address] [place] [phone] 05/14/2023 2:15 PM LEARNING TECHNOLOGIES SPECIALIST Appointment [facility] [address] [facility] [place] [address] Curt Wolfe MD [address] [place] [address] Nurse, Cardiology II [facility]iology [address] [place] [address]. 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
--- OUTSIDE RECORDS SUMMARY | 2023-04-11 16:02 | XMS_ITS | Encounter Summary ---
Author Name Unknown Organization [facility] Address [address], [place] [address] Care Team Providers Care Surgical Dressing Maker Name Role Phone Carolynn Alvarado MD Primary Care Provider [phone] Reason for Visit * Reason Comments Eye Exam Encounter Details Date Type Department Care Team Description 2022 8:50 AM CDT Office Visit [place] [address] [address] [place] [address] Radha Troy, OD [address] [place], [place] 79[address] Examination of eyes and vision (Primary Dx); [...] Department Care Team Description 04/15/2023 10:45 AM CONE WINDER Appointment [facility] [address] [facility] [place] [address] Sin Castorena MD [address] [place] [address] Injection 05/09/2023 9:00 AM CONE WINDER Appointment [facility] [address] [place], [place] 6[address] Carey Rashid DO [address] [place], [place] [address] 05/14/2023 2:15 PM CONE WINDER Appointment [facility] [address] [facility] [place] [phone] Curt Wolfe MD [address] [place], [place] [address] Nurse, Cardiology II [facility] [address] [place] [phone] documented as of this encounter Visit Diagnoses Diagnosis Examination of eyes and vision- Primary Myopia with astigmatism and presbyopia, bilateral Bilateral pseudophakia Lens replaced by other means Esotropia Esotropia, unspecified 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 (HRC) 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
--- OUTSIDE RECORDS SUMMARY | 2023-04-11 16:02 | XMS_ITS | Encounter Summary ---
Author Name Unknown Organization [facility] Address [address] [place] [address] Care Team Providers Care Iuss Analyst Name Role Phone Carolynn Alvarado MD Primary Care Provider [phone] Encounter Details Date Type Department Care Team Description 02/23/2023 Partner ED HIM DEPARTMENT Provider, MD Denice Interface provider interface provider, [address] 02/23/2023 Social History Tobacco Use Types [...] Department Care Team Description 04/15/2023 10:45 AM SPIRITUAL ADVISOR Appointment [facility] [address] [facility]. [place], [place] [address] Sin Castorena MD [address] [place], [place] [address] Injection 05/09/2023 9:00 AM SPIRITUAL ADVISOR Appointment [facility] [address] [place], [place] 5347[address] Carey Rashid DO [address] [place], [place] [phone] 05/14/2023 2:15 PM SPIRITUAL ADVISOR Appointment [facility] 1515 [facility] [place], [place] [phone] Curt Wolfe MD [address] [place], [place] [address] Nurse, Cardiology II [facility] 15[address] [facility] [place] [phone] documented as of this encounter Visit Diagnoses Not on filedocumented in this encounter Additional Health Concerns Infection Onset Date Last Indicated Resolved Time 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 (+) 11/07/2015 11/07/2015 documented as of this encounter Care Teams Iuss Analyst Relationship Specialty [place] [address] [address] [place] [address] PCP - General Internal Medicine 11/09/15 documented as of this encounter
--- OUTSIDE RECORDS SUMMARY | 2023-04-11 16:02 | XMS_ITS | Encounter Summary ---
Author Name Unknown Organization [facility] Address [address] [place] [address] Care Team Providers Care Equipment Specialist Name Role Phone Carolynn Alvarado MD Primary Care Provider [phone] Encounter Details Date Type Department Care Team Description 02/17/2023 12:00 PM PREPRESS PROOFER Lab Visit [facility] [id number] [place] [address] Stress incontinence of urine Social History Tobacco [...] Department Care Team Description 04/15/2023 10:45 AM PREPRESS PROOFER Appointment [facility] [address] [facility] [place], [place] [address] Sin Castorena MD [address] [place], [place] [address] Injection 05/09/2023 9:00 AM PREPRESS PROOFER Appointment [facility] [address] [place] [address] Carey Rashid DO [address] [facility], [place] [address] 05/14/2023 2:15 PM PREPRESS PROOFER Appointment [facility] [address] [facility] [place] [address] Curt Wolfe MD [address] [place], [place] [phone] Nurse, Cardiology II [facility] [address] [facility] [place] [phone] documented as of this encounter Procedures Procedure Name Priority Date/Time Associated Diagnosis Comments URINALYSIS ROUTINE, MICRO/CULTURE IF POS Routine 02/17/2023 11:57 AM PREPRESS PROOFER Stress incontinence of urine documented in this encounter Results * (ABNORMAL) Urinalysis Routine, Micro/Culture if Pos: Clean Catch (02/17/2023 11:57 AM PREPRESS PROOFER) Urine Culture Comment Urinalysis results do not meet criteria for urine culture reflex. 02/17/2023 11:59 AM PREPRESS PROOFER [facility] Urine Color Yellow 02/17/2023 11:59 AM PREPRESS PROOFER [facility] Urine Clarity Clear Clear 02/17/2023 11:59 AM PREPRESS PROOFER [facility] Specific [place], Urine 1.020 1.005 - 1.030 02/17/2023 11:59 AM PREPRESS PROOFER [facility] PH Urine 5.5 5.0 - 8.0 02/17/2023 11:59 AM PREPRESS PROOFER [facility] Protein, Urine Qual (mg/dL) Trace Neg/Trace 02/17/2023 11:59 AM PREPRESS PROOFER [facility] Glucose Urine Qual (mg/dL) Negative Negative 02/17/2023 11:59 AM PREPRESS PROOFER [facility] Ketones, Urine (mg/dL) Trace(A) Negative 02/17/2023 11:59 AM [facility] Urobilinogen, Urine (EU/dL) 0.2 <2.0 02/17/2023 11:59 AM PREPRESS PROOFER [facility] Bilirubin Urine Negative Negative 02/17/2023 11:59 AM PREPRESS PROOFER [facility] Blood, Urine Negative Neg/Trace 02/17/2023 11:59 AM PREPRESS PROOFER [facility] Nitrite Urine Negative Negative 02/17/2023 11:59 AM PREPRESS PROOFER [facility] Leukocyte Est. 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
--- OUTSIDE RECORDS SUMMARY | 2023-04-11 16:02 | XMS_ITS | Encounter Summary ---
Author Name Unknown Organization [facility] Address [address] [place] [address] Care Team Providers Care Damaged Freight Inspector Name Role Phone Carolynn Alvarado MD Primary Care Provider [phone] Reason for Visit * Reason Comments Spine Lumbar Encounter Details Date Type Department Care Team Description 01/20/2023 11:15 AM DESIGN MAINTENANCE ENGINEER Therapy [facility] [address] [address] Rona Mcgrath, PT [address] [place] [address] Chronic bilateral low back pain, [...] Current Home Exercise Program List: Access Code: [email or web address] URL: [email or web address] - Supine Posterior Pelvic Tilt + exhale [...] review of education withtransitions and home chores. GN MAINTENANCE ENGINEER documented in this encounter Plan of Treatment Upcoming Encounters Date Type Department Care Team Description 04/15/2023 10:45 AM DESIGN MAINTENANCE ENGINEER Appointment [facility] [address] [place] [address]. [place], [place] [phone] Sin Castorena MD 39[address] [place], [place] [phone] Injection 05/09/2023 9:00 AM DESIGN MAINTENANCE ENGINEER Appointment [facility] [address] [place], [place] [phone] Carey Rashid DO [address] [place], [place] [phone] 05/14/2023 2:15 PM DESIGN MAINTENANCE ENGINEER Appointment [facility] 1515 [facility] [place], [place] [address] Curt Wolfe MD [address] [place], [place] [address] Nurse, Cardiology II [facility] 1515 [facility] [place] [address] documented as of this encounter Visit Diagnoses Diagnosis Chronic bilateral low back pain, unspecified whether sciatica present- Primary 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
--- OUTSIDE RECORDS SUMMARY | 2023-04-11 16:02 | XMS_ITS | Encounter Summary ---
Author Name Unknown Organization [facility] Address [address] [place] [address] Care Team Providers Care Ad Writer Name Role Phone Carolnyn Alvarado MD Primary Care Provider [phone] Encounter Details Date Type Department Care Team Description 03/24/2023 Notes/[facility] Electrocardiogram, Holter, Event Recorder [address] [employer] [facility] [address] Curt Wolfe MD [address] [place] [address] Paroxysmal atrial fibrillation (HRC) (Primary [...] Department Care Team Description 04/15/2023 10:45 AM MARBLE MACHINE TENDER Appointment [facility] [address] [facility]. [place], [place] [phone] Sin Castorena MD [address] [place], [place] [phone] Injection 05/09/2023 9:00 AM MARBLE MACHINE TENDER Appointment [facility] [address] [place], [place] [phone] Carey Rashid DO [address] [place], [place] [phone] 05/14/2023 2:15 PM MARBLE MACHINE TENDER Appointment [facility] 1515 [facility] [place] [phone] Curt Wolfe MD [address] [place] [address] Nurse, Cardiology II [facility]5 [facility] [place] [phone] documented as of this encounter Visit Diagnoses Diagnosis Paroxysmal atrial fibrillation (HRC)- Primary Atrial fibrillation 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
--- OUTSIDE RECORDS SUMMARY | 2023-04-11 16:02 | XMS_ITS | Encounter Summary ---
Author Name Unknown Organization [facility] Address [address], [place] [address] Care Team Providers Care Color Buffer Name Role Phone Carolynn Alvarado MD Primary Care Provider [phone] Reason for Visit * Reason Comments PRE-OP EXAM Encounter Details Date Type Department Care Team Description 03/27/2023 10:30 AM BLOCK FEEDER Pre-Op Visit [place] [address] [place] [phone] [place] [address] [place] [address] Preop examination (Primary Dx); Lumbosacral radiculopathy [...] Comments Blood Pressure 130/79 03/27/2023 10:25 AM BLOCK FEEDER Pulse 82 03/27/2023 10:25 AM BLOCK FEEDER Temperature - - Respiratory Rate 16 03/27/2023 10:25 AM BLOCK FEEDER Oxygen Saturation - - Inhaled Oxygen Concentration - - Weight 62.1 kg (137 lb) 03/27/2023 10:25 AM BLOCK FEEDER Height - - Body Mass Index 23.52 03/24/2023 2:54 PM BLOCK FEEDER documented in this encounter Patient Instructions * Patient Instructions* Isidoro Leach MD - 03/27/2023 10:30 AM BLOCK FEEDER Pre-op Instructions: Do not eat after midnight [...] described above. In addition, please stop all jamp-riv-hackwea medications including aspirin, ibuprofen (Advil, Motrin), naproxen [...] health-related equipment or devices you use daily K FEEDER documented in this encounter Progress Notes * Isidoro Leach MD - 03/27/2023 10:30 AM CST Pre-Operative Assessment 03/27/2023 ET Amb PreOp Assessment Details Procedure lumbar fusion Surgeon Dr. Foss Location Other Other Location Name [facility] Procedure Date 04/01/2023 Juan Martinez is a [...] it was too expensive. She saw her Branch Service Associate chris few days ago at which time an EKG showed normal sinus rhythm. The plan is to obtain a 14 day ZioPatch after surgery and if she has paroxysmal atrial fibrillation they will start her on Coumadin. Patient Active Problem List Diagnosis Date Noted Lymphocytosis ([facility]) 04/22/2016 Overview Note: 04/22/[address] Norwood - the level of the patient has an absolute lymphocytosis. If persistent this could be early chronic lymphocytic leukemia. Flow cytometry may be helpful to further evaluate if it the count does not normalize Mixed hyperlipidemia ([facility]) 05/14/2017 Overview Note: 05/14/2017 10 year 9.03% (using the ACC/AHA ASCVD risk score). 05/01/2020 9% - DECLINES STATIN - LDL too low, trial atorvastatin 2017 Mild early onset dysthymic disorder, in full remission, with melancholic features, with pure dysthymic syndrome ([facility]) 04/02/2011 Overview Note: Follows Dr Bony Yanes annually - duloxetine 20 mg Essential hypertension ([facility]) 08/21/2002 Overview Note: hydrochlorothiazide 25, atenolol 75, norvasc 5 mg ; Hypertension Psychophysiological insomnia 10/12/2015 Routine health maintenance 02/08/2014 Overview Note: Reviewed at [facility] exam 04/20/06/13/20222020 Menstrual periods: Post menopausal - [id number] d/c'd HRT Calcium/vit D: Recommended daily DEXA: [...] Note: Added automatically from request for surgery [id number] History of dysplastic nevus 09/05/2017 Overview Note: [...] date 2011- at [facility] Other treatment modalities tried: Injection; date 03/31, [...] surgery 2020 DEXA 12/22/2014 mild low, DUE [id number], Ca and D 05/24/2019 worsening, -2, FRAX 24.6% and 8.1% - asked to return to [facility] tx BP Aortic insufficiency (HRC) 03/04/2014 Overview [...] described above. In addition, please stop all nuvf-xyc-jjgyaqo medications including aspirin, ibuprofen (Advil, Motrin), naproxen [...] by: Isidoro Leach MD 03/27/2023, 7:44 AM K FEEDER documented in this encounter Plan of Treatment Upcoming Encounters Date Type Department Care Team Description 04/15/2023 10:45 AM BLOCK FEEDER Appointment [facility] [address] [facility] [place], [place] [address] Sin Castorena MD [address] [place] [address] Injection 05/09/2023 9:00 AM BLOCK FEEDER Appointment [facility] [address] [place] [address] Carey Rashid DO [address] [place], [place] [phone] 05/14/2023 2:15 PM BLOCK FEEDER Appointment [facility] [place] [address] Curt Wolfe MD [address] [place] [address] Nurse, Cardiology II [facility] [place] [address] documented as of this encounter Results * Basic Metabolic Panel (03/27/2023 10:51 AM BLOCK FEEDER) Sodium 142 136 - 145 mmol/L 03/27/2023 [...] Blood Venipuncture / Unknown 03/27/2023 10:51 AM BLOCK FEEDER 03/27/2023 10:51 AM BLOCK FEEDER Isidoro Leach MD LAB_1 Performing Organization Address [facility]/ZIP Co de Phone Number [facility] [address] [place] [address], [facility] [phone] * INR/Protime (03/27/2023 10:51 AM BLOCK FEEDER) Pathologist [facility] Protime 12.4 11.8 - 14.6 Seconds 03/27/2023 11:[address] [facility] INR 0.9 0.9 - 1.1 03/27/2023 11:[address] [facility] Blood Venipuncture / Unknown 03/27/2023 10:51 AM BLOCK FEEDER 03/27/2023 10:51 AM BLOCK FEEDER Narrative [facility] - 03/27/2023 11:05 AM BLOCK FEEDER Therapeutic range determined by protocol established by anticoagulation provider. Isidoro Leach MD LAB_1 Performing Organization Address [facility]/ZIP Co de Phone Number [facility] [address] [place] [address], [facility] [phone] * Complete Blood Count-No Diff (03/27/2023 10:51 AM BLOCK FEEDER) Pathologist [facility] WBC 9.0 3.5 - 10.5 x10(9)/L 03/27/2023 10:[address] [facility] RBC 4.17 3.90 - 5.03 x10(12)/L 03/27/2023 10:[address] [facility] Hemoglobin 12.9 12.0 - 15.5 g/dL 03/27/2023 10:[address] [facility] HCT 39.5 34.9 - 44.5 % 03/27/2023 10:[address] [facility] MCV 94.7 80.0 - 100.0 fL 03/27/2023 10:[address] [facility] MCH 30.9 27.6 - 33.3 pg 03/27/2023 10:[address] [facility] MCHC 32.7 31.5 - 35.2 g/dL 03/27/2023 10:[address] [facility] RDW 12.7 11.9 - 15.5 % 03/27/2023 10:[address] [facility] Platelets 432 150 - 450 x10(9)/L 03/27/2023 10:[address] [facility] Blood Venipuncture / Unknown 03/27/2023 10:51 AM BLOCK FEEDER 03/27/2023 10:51 AM [facility] Isidoro Leach MD LAB_1 [facility] [address] [place] [address], [facility] [phone] documented in this encounter Visit Diagnoses Diagnosis Preop examination- Primary Preoperative examination, unspecified Lumbosacral radiculopathy at L3 Thoracic or lumbosacral neuritis or radiculitis, unspecified Essential hypertension (HRC) Unspecified essential hypertension Mixed hyperlipidemia (HRC) Mixed hyperlipidemia Nonrheumatic aortic valve insufficiency (HRC) Aortic valve disorders Dilated aortic root (HRC) Aortic ectasia, unspecified site History of atrial fibrillation Personal history of other diseases of circulatory system 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
--- OUTSIDE RECORDS SUMMARY | 2023-04-11 16:03 | XMS_ITS | Encounter Summary ---
Author Name Unknown Organization [facility] Address [address] [place] [address] Care Team Providers Care Chief Legal Officer Name Role Phone Carolynn Alvarado MD Primary Care Provider [phone] Reason for Visit * Reason Comments Eye Problem Encounter Details Date Type Department Care Team Description 12/11/2022 9:00 AM CDT Office Visit [place] [address] [place] [address] Balwinder Sanchez, PAYogiC [address] [facility] [place] [address] Conjunctivitis of left eye, unspecified [...] Department Care Team Description 04/15/2023 10:45 AM SUSPECT ARTIST SUPERVISOR Appointment [facility] [address] [facility] [place], [place] [address] Sin Castorena MD 3900 [place], [place] [phone] Injection 05/09/2023 9:00 AM SUSPECT ARTIST SUPERVISOR Appointment [facility] [address] [place], [place] [phone] Carey Rashid DO 3800 [place], [place] [address] 05/14/2023 2:15 PM SUSPECT ARTIST SUPERVISOR Appointment [facility] [address] [facility] [place], [place] [phone] Curt Wolfe MD 6[address] [place], [place] [phone] Nurse, Cardiology II [facility] [place] [place] [address] documented as of this encounter Visit Diagnoses Diagnosis Conjunctivitis of left eye, unspecified conjunctivitis type Red eye Redness or discharge of eye 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
--- OUTSIDE RECORDS SUMMARY | 2023-04-11 16:03 | XMS_ITS | Encounter Summary ---
Author Name Unknown Organization [facility] Address [address] [place] [address] Care Team Providers Care Medart Operator Name Role Phone Carolynn Alavrado MD Primary Care Provider [phone] Reason for Referral * (Routine) - New Request Specialty Diagnoses / Procedures Referred By Cecille concepcion Referred To Contact Diagnoses Exudative age-related macular degeneration of right eye with active choroidal neovascularization (HRC) Procedures AVASTIN 1.25 MG EYE Sin Castorena MD [address] [place] [address] Referral ID Status Reason Start Date Expiration Date V isits Requested Visits Authorized [id number] New Request 07/26/2022 10/25/2023 1 1 Reason for Visit * Reason Comments Follow-up Encounter Details Date Type Department Care Team Description 07/26/2022 10:30 AM CDT Office Visit [facility] [address] [place] [address]. [place] [address] Sin Castorena MD 39[address] [place] [address] Exudative age-related macular degeneration of [...] Medicaton: Avastin 0.05 mL (1.25mg) Lot number: [id number], Exp 11/08/2022 Anesthesia: tetracaine, akten 5% povidone [...] Department Care Team Description 04/15/2023 10:45 AM ADAPTIVE PHYSICAL EDUCATION TEACHER Appointment [place] [address] [facility] [place], [place] [address] Sin Castorena MD [address] [place], [place] [address] Injection 05/09/2023 9:00 AM ADAPTIVE PHYSICAL EDUCATION TEACHER Appointment [facility] [address] [place] [address] Carey Rashid DO 38[address] [place], [place] [address]406 05/14/2023 2:15 PM ADAPTIVE PHYSICAL EDUCATION TEACHER Appointment [facility] [address] [place] [id number] Curt Wolfe MD 5560 [place], [place] [address] Nurse, Cardiology II [facility] [address] [place] [phone] documented as of this encounter Visit Diagnoses [...] documented as of this encounter Care Teams Medart Operator Relationship Specialty [place] [address] [place] [address] PCP - General Internal Medicine 11/09/15 documented as of this encounter
--- OUTSIDE RECORDS SUMMARY | 2023-04-11 16:03 | XMS_ITS | Encounter Summary ---
Author Name Unknown Organization [facility] Address [address] [place] [address] Care Team Providers Care Marketing Project Manager Name Role Phone Carolynn Alvarado MD Primary Care Provider [phone] Reason for Visit * Reason Comments Refill methocarbamol (ROBAX IN) 500 MG tablet [Pharmacy Med Name: METHOCARBAMOL 500MG TABLETS] Encounter Details Date Type Department Care Team Description 12/23/2022 Refill [facility] [address] [place], [place] [phone] Carolynn Alvarado MD [address] [place] [address] Refill (methocarbamol (ROBAXIN) 500 MG tablet [...] visit: None [facility] Embedded Refills, Reference: [id number], 12/23/2022 6:42:18 PM CDT, Pool: RAYA IMED REFILL ([id number]) ING TRANSPORTATION DRIVER documented in this encounter Plan of Treatment Upcoming Encounters Date Type Department Care Team Description 04/15/2023 10:45 AM WEDDING TRANSPORTATION DRIVER Appointment [address] 3900 [facility] [place], [place] [address] Sin Castorena MD 3400 [place], [place] [phone] Injection 05/09/2023 9:00 AM WEDDING TRANSPORTATION DRIVER Appointment [facility] [address] [place], [place] [phone] Carey Rashid DO [address] [place], [place] [phone] 05/14/2023 2:15 PM WEDDING TRANSPORTATION DRIVER Appointment [facility] [address] [place] [address] Curt Wolfe MD [address] [place], [place] [address] Nurse, Cardiology II [facility] [address] [place], [place] [phone] documented as of this encounter Visit Diagnoses Not on filedocumented in this encounter Additional Health Concerns Infection Onset Date Last Indicated Resolved Time 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
--- OUTSIDE RECORDS SUMMARY | 2023-04-11 16:03 | XMS_ITS | Encounter Summary ---
Author Name Unknown Organization [facility] Address [address] [place] [address] Care Team Providers Care Marine Firer Name Role Phone Carolynn Alvarado MD Primary Care Provider [phone] Encounter Details Date Type Department Care Team Description 10/07/2022 9:50 AM CDT Lab Visit [facility] [address] [place], [place] [phone] Routine general medical examination at health care [...] Department Care Team Description 04/15/2023 10:45 AM RECHARGER Appointment [facility] [address] [facility] [place], [place] 12[address] Sin Castorena MD [address] [place] [place], [place] [address] Injection 05/09/2023 9:00 AM RECHARGER Appointment [facility] [address] [place], [place] 6738[address] Carey Rashid DO [address] [place] [address] 05/14/2023 2:15 PM RECHARGER Appointment [facility] 1515 [facility] [place] [phone] Curt Wolfe MD [address] [place], [place] [phone] Nurse, Cardiology II [facility] 1515 [facility] [place] [phone] documented as of this encounter Procedures Procedure Name Priority Date/Time Associated Diagnosis Comments CONTAINER TEST Routine 10/07/2022 12:58 PM CDT Routine general medical examination at health care facility URINE CONTAINER, 24 HOUR Routine 10/07/2022 12:58 PM CDT Routine general medical examination at [facility] care facility documented in this encounter Results * Urine Container, 24 Hour (10/07/2022 12:58 PM CDT) Container Given Done 10/07/2022 2:00 PM CDT [facility] Other Specimen Type 10/07/2022 12:58 PM CDT 10/07/2022 12:58 PM CDT Reagan Campbell MD LAB_1 [facility] [address] [place] [address], [facility] [phone] documented in this encounter Visit Diagnoses Diagnosis Routine general medical examination at health care facility- Primary Routine general medical examination at a health care facility 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
--- OUTSIDE RECORDS SUMMARY | 2023-04-11 16:03 | XMS_ITS | Encounter Summary ---
Author Name Unknown Organization [facility] Address [address] [address] Care Team Providers Care Senior Hris Analyst Name Role Phone Carolynn Alvarado MD Primary Care Provider [phone] Reason for Visit * Reason Comments Follow-up Encounter Details Date Type Department Care Team Description 10/04/2022 10:30 AM CDT Office Visit [facility] [address] [facility] [place], [place] [address] Sin Castorena MD 39[address] [place], [place] [address] Exudative age-related macular degeneration of right eye [...] to keep the eye closed or use hhow-asq-jntucgr artificial tears for comfort. You may see [...] discharge (other than tears/bloody tears) Call [phone] with any problems. documented in this encounter [...] Eylea 0.05 mL (2 mg) Lot number: [id number], Exp 04/16/23 Anesthesia: tetracaine, akten 5% povidone [...] Department Care Team Description 04/15/2023 10:45 AM COMMUNICABLE DISEASE SPECIALIST Appointment [facility] [address] [facility] [place] [address] Sin Castorena MD 39[address] [place], [place] [phone] Injection 05/09/2023 9:00 AM COMMUNICABLE DISEASE SPECIALIST Appointment [facility] [address] [place], [place] [phone] Carey Rashid DO 3800 [place] [address] 05/14/2023 2:15 PM COMMUNICABLE DISEASE SPECIALIST Appointment [facility] [address] [place] [address] Curt Wolfe MD 6500 [place] [address] Nurse, Cardiology II [facility] Cardiology [facility] [place] [address] documented as of this encounter [...] documented as of this encounter Care Teams Senior Hris Analyst Relationship Specialty [place] [address] [place] [address] PCP - General Internal Medicine 11/09/15 documented as of this encounter
--- OUTSIDE RECORDS SUMMARY | 2023-04-11 16:03 | XMS_ITS | Encounter Summary ---
Author Name Unknown Organization [facility] Address [address] [place] [address] Care Team Providers Care Gusset Maker Name Role Phone Carolynn Alvarado MD Primary Care Provider [phone] Reason for Visit * Reason Comments Follow-up Encounter Details Date Type Department Care Team Description 11/01/2022 11:00 AM CDT Office Visit [facility] [address] 39[address] [facility] [place], [place] [address] Sin Castorena MD 3900 [place], [place] [phone] Exudative age-related macular degeneration of right eye [...] to keep the eye closed or use txmn-hud-nwcikvj artificial tears for comfort. You may see [...] Eye discharge (other than tears/bloody tears) Call [phone] with any problems. documented in this encounter [...] Eylea 0.05 mL (2 mg) Lot number: [id number], Exp 07/15/23 Anesthesia: tetracaine, lidocaine gel 5% [...] Department Care Team Description 04/15/2023 10:45 AM [address] B[address]ER Appoint[address] [facility] [address] [facility] [place] [address] Sin Castorena MD 3900 [place] [address] Injection 05/09/2023 9:00 AM FREIGHT BOOKER Appointment [facility] [address] [place] [address] Carey Rashid DO 3800 [place], [place] [address] 05/14/2023 2:15 PM FREIGHT BOOKER Appointment [facility] 1515 [place] [address] Curt Wolfe MD [address] [place] [address] Nurse, Cardiology [facility] 1515 [place] [address] documented as of this encounter [...] documented as of this encounter Care Teams Gusset Maker Relationship Specialty [place] [address] [place] [address] PCP - General Internal Medicine 11/09/15 documented as of this encounter
--- OUTSIDE RECORDS SUMMARY | 2023-04-11 16:03 | XMS_ITS | Encounter Summary ---
Author Name Unknown Organization [facility] Address [address], [place] [address] Care Team Providers Care Zig Zag Spring Machine Operator Name Role Phone Carolynn Alvarado MD Primary Care Provider [phone] Reason for Visit * Reason Comments NAIL PROBLEM Right great toenail removal Encounter Details Date Type Department Care Team Description 11/05/2022 10:30 AM CDT Office Visit [facility] [address] Podiatric Med[facility] [address] [place] [address] Tra Mullins, DPM 5585 [place], [place] [address] Onychomycosis (Primary Dx); Great toe pain, unspecified [...] fever >101 degrees. -Podiatry nurse triage line: [phone] -If you're having pain you can take [...] CLINIC PROGRESS NOTE NAME: Michelle Franz CSN: [id number] DATE OF VISIT: 11/05/2022 Chief Complaint Patient presents with NAIL PROBLEM Right great toenail removal SUBJECTIVE: Patient presents to clinic today with a complaint of thickened dystrophic right hallux nail. She would like to have the nail removed. MEDICATIONS: Reviewed today in [facility] ALLERGIES: Reviewed today in [facility] Past medical history, Past surgical history, [...] Department Care Team Description 04/15/2023 10:45 AM HEAD OF IT Appointment [facility] [address] 39[address] [facility] [place], [place] [phone] Sin Castorena MD 3900 [place], [place] [address] Injection 05/09/2023 9:00 AM HEAD OF IT Appointment [facility] [address] [place], [place] [phone] Carey Rashid DO 3800 [place], [place] [address] 05/14/2023 2:15 PM HEAD OF IT Appointment [facility] 1515 [facility]. 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
--- OUTSIDE RECORDS SUMMARY | 2023-04-11 16:03 | XMS_ITS | Encounter Summary ---
Author Name Unknown Organization [facility] Address [address] [address] Care Team Providers Care Chef De Froid Name Role Phone Carolynn Alvarado MD Primary Care Provider [phone] Reason for Visit * Reason Comments NAIL PROBLEM Right great toenail fungus Encounter Details Date Type Department Care Team Description 08/13/2022 9:30 AM CDT Office Visit [facility] [address] [facility]iatric [facility] [address] [place] [address] Tra Mullins, DPM 0569 [place], [place] [address] Onychomycosis (Primary Dx) Social History Tobacco Use [...] CLINIC PROGRESS NOTE NAME: Michelle Franz CSN: [id number] DATE OF VISIT: 08/13/2022 Chief Complaint Patient [...] toenail removed previously MEDICATIONS: Reviewed today in [facility] ALLERGIES: Reviewed today in [facility] Past medical history, Past surgical [...] Department Care Team Description 04/15/2023 10:45 AM CERTIFIED HYPERBARIC TECHNOLOGIST Appointment [facility] [address] [facility] [place], [place] [address] Sin Castorena MD 3900 [place] [address] Injection 05/09/2023 9:00 AM CERTIFIED HYPERBARIC TECHNOLOGIST Appointment [facility] [address] [place] [address] Carey Rashid DO [address] [place], [place] [address] 05/14/2023 2:15 PM CERTIFIED HYPERBARIC TECHNOLOGIST Appointment [facility] 1515 [place] [address] Curt Wolfe MD [address] [place] [address] Nurse, Cardiology II [facility] 1515 [facility] [place], [place] [address] documented as of this encounter Visit Diagnoses Diagnosis Onychomycosis- Primary Dermatophytosis of nail 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
--- OUTSIDE RECORDS SUMMARY | 2023-04-11 16:03 | XMS_ITS | Encounter Summary ---
Author Name Unknown Organization [facility] Address [address] [place] [address] Care Team Providers Care Food Broker Name Role Phone Carolynn Alvarado MD Primary Care Provider [phone] Reason for Visit * Procedure/Equipment (Routine) - Incomplete Specialty Diagnoses / Procedures Referred By Eladioac t Referred To Contact Diagnoses Radiculopathy of lumbar region Procedures MR Lumbar Spine WO IV Cont Carey Rashid, DO [address] [place] [address] Referral ID Status Reason Start Date Expiration Date V isits Requested Visits Authorized [id number] Incomplete 07/01/2022 09/30/2023 1 1 Encounter Details Date Type Department Care Team Description 07/03/2022 11:00 AM CDT Ancillary Procedure [facility] [address] Radiology MRI [address] [place] [address] Carey Rashid DO [address] [place], [place] [phone] Radiculopathy of lumbar region Social History Tobacco [...] Department Care Team Description 04/15/2023 10:45 AM DIRECTORY COMPILER Appointment [facility] [address] [facility] [place], [place] [address] Sin Castorena MD 3900 [place], [place] [address] Injection 05/09/2023 9:00 AM DIRECTORY COMPILER Appointment [facility] [address] [place] [address] Carey Rashid DO [address] [place], [place] [address] 05/14/2023 2:15 PM DIRECTORY COMPILER Appointment [facility] 1515 [facility]. [place], [place] [address] Curt Wolfe MD [address] [place] [address] Nurse, Cardiology II [facility]5 [place], [place] [address] documented as of this encounter Procedures Procedure [...] Bilateral facet hypertrophy. Mild canal stenosis. Similar rvocgiyd-dc-toqixq left and moderate right foraminal stenosis. L4-5: [...] percentages adapted from Estella W, Jahaira PH, adalberto Can al. AJNR AM J Neuroradiol 2015:36:811-16. Narrative [...] bulge. Bilateral facet hypertrophy. Mildcanal stenosis. Similar vxfwmvxo-yy-edztak left and moderate rightforaminal stenosis. 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
--- OUTSIDE RECORDS SUMMARY | 2023-04-11 16:03 | XMS_ITS | Encounter Summary ---
Author Name Unknown Organization 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 [place] [address] Sin Castorena MD 3900 [place] [address] Exudative age-related macular degeneration of [...] to keep the eye closed or use lyoe-bsv-gsaewpv artificial tears for comfort. You may see [...] Eye discharge (other than tears/bloody tears) Call [phone] with any problems. documented in this encounter [...] Medicaton: Avastin 0.05 mL (1.25mg) Lot number: [id number], Exp 11/28/2022 Anesthesia: tetracaine, akten 5% povidone [...] Department Care Team Description 04/15/2023 10:45 AM POURER CRANE LADLE Appointment [facility] [address] [facility] [place], [place] [address] Sin Castorena MD 3900 [place], [place] [phone] Injection 05/09/2023 9:00 AM POURER CRANE LADLE Appointment [facility] [address] [place] [address] Carey Rashid DO [address] [place], [place] [address] 05/14/2023 2:15 PM POURER CRANE LADLE Appointment [facility] 1515 [place], [place] [address] Curt Wolfe MD [address] [place] [address] Nurse, Cardiology II [facility] 1515 [place], [place] [address] documented as of this encounter Visit Diagnoses [...] documented as of this encounter Care Teams Councilman Relationship Specialty Start Date End Date Carolynn [place]varado [place] [id number] [place] [address] [place] [address] PCP - General Internal Medicine 11/09/15 documented as of this encounter
--- OUTSIDE RECORDS SUMMARY | 2023-04-11 16:03 | XMS_ITS | Encounter Summary ---
Author Name Unknown Organization [facility] Address [address] [place] [address] Care Team Providers Care Office Clerk Routine Name Role Phone Carolynn Alvarado MD Primary Care Provider [phone] Encounter Details Date Type Department Care Team Description 07/08/2022 9:30 PM CDT Lab Visit [facility] [address] [place] [address] Screening for colon cancer Social History Tobacco [...] Department Care Team Description 04/15/2023 10:45 AM INDUSTRIAL ENG Appointment [facility] [address] [facility] [place], [place] [address] Sin Castorena MD [address] [place], [place] [address] Injection 05/09/2023 9:00 AM INDUSTRIAL ENG Appointment [facility] [address] [place], [place] [phone] Carey Rashid DO [address] [place] [address] 05/14/2023 2:15 PM INDUSTRIAL ENG Appointment [facility] [address] [place] [phone] Curt Wolfe MD [address] [place], [place] [phone] Nurse, Cardiology II [facility] [address] [place] [phone] documented as of this encounter Procedures Procedure Name Priority Date/Time Associated Diagnosis Comments FIT COLON RECTAL CANCER SCREENING Routine 07/08/2022 8:00 AM CDT Screening for colon cancer documented in this encounter Results * FIT Colon Rectal Cancer Screening (07/08/2022 8:00 AM CDT) FIT Specimen 1 Negative Negative 07/09/2022 9:41 AM CDT [facility] Stool 07/08/2022 8:00 AM CDT 07/08/2022 6:44 PM CDT Carolynn Alvarado MD LAB_1 Performing Organization Address City/State/RUST Co de Phone Number [facility] [address] [address] [phone] documented in this encounter Visit Diagnoses Diagnosis Screening for colon cancer Special screening for malignant neoplasms, colon 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
--- OUTSIDE RECORDS SUMMARY | 2023-04-11 16:03 | XMS_ITS | Encounter Summary ---
Author Name Unknown Organization [facility] Address [address] [place] [address] Care Team Providers Care Hygiene Teacher Name Role Phone Carolynn Alvarado MD Primary Care Provider [phone] Reason for Visit * Reason Comments Injection Encounter Details Date Type Department Care Team Description 11/21/2022 10:30 AM CDT Nursing Visit [facility] [address] [place] [address] Nurse, [facility] Osteoporosis with current pathological fracture, unspecified [...] Department Care Team Description 04/15/2023 10:45 AM DEPUTY DIRECTOR OF FINANCE Appointment [facility] [address] 39[address] [facility] [place], [place] [phone] Sin Castorena MD 39[address] [place], [place] [address] Injection 05/09/2023 9:00 AM DEPUTY DIRECTOR OF FINANCE Appointment [facility] [address] [place], [place] [phone] Carey Rashid DO 3800 [place] [address] 05/14/2023 2:15 PM DEPUTY DIRECTOR OF FINANCE Appointment [facility] 1515 [facility] [place] [address] Curt Wolfe MD [address] [place], [place] [phone] Nurse, Cardiology II [facility] [address] [facility] [place] [address] documented as of this encounter Visit Diagnoses Diagnosis Osteoporosis with current pathological fracture, unspecified osteoporosis type, sequela- Primary Exudative age-related macular degeneration of right [...] mg Left Arm Given 05/23/2022 10:15 AM DEPUTY DIRECTOR OF FINANCE 60 mg L eft Arm documented in this encounter Additional Health Concerns Infection Onset Date Last Indicated Resolved Time MRSA Comment:4/10/15 nares (+) 11/07/2015 11/07/2015 documented as of this encounter Care Teams Hygiene Teacher Relationship Specialty [place] [address] [place] [address] PCP - General Internal Medicine 11/09/15 documented as of this encounter
--- OUTSIDE RECORDS SUMMARY | 2023-04-11 16:03 | XMS_ITS | Encounter Summary ---
Author Name Unknown Organization [facility] Address [address] [place] [address] Care Team Providers Care Catering Sous Chef Name Role Phone Carolynn Alvarado MD Primary Care Provider [phone] Reason for Visit * Reason Comments Follow-up Encounter Details Date Type Department Care Team Description 11/29/2022 1:00 PM CDT Office Visit [facility] [address] [facility] [place], [place] [address] Sin Castorena MD 39[address] [place], [place] [phone] Exudative age-related macular degeneration of right eye [...] to keep the eye closed or use rbvy-pje-aqiencn artificial tears for comfort. You may see [...] Eye discharge (other than tears/bloody tears) Call [phone] with any problems. documented in this encounter [...] Eylea 0.05 mL (2 mg) Lot number: [id number], Exp 01/15/24 Anesthesia: tetracaine, lidocaine gel 5% [...] Department Care Team Description 04/15/2023 10:45 AM MOLDING PROCESS TECHNICIAN Appointment [facility] [address] [facility] [address] Sin Castorena MD 3900 [place] [address] Injection 05/09/2023 9:00 AM MOLDING PROCESS TECHNICIAN Appointment [facility] [address] [place] [address] Carey Rashid DO 3800 [place], [place] [phone] 05/14/2023 2:15 PM MOLDING PROCESS TECHNICIAN Appointment [facility] 1515 [place] [address] Curt Wolfe MD [address] [place] [address] Nurse, Cardiology II [facility] 1515 [place] [address] documented as of this encounter [...] documented as of this encounter Care Teams Catering Sous Chef Relationship Specialty Start [place] [address] [address] [place] [address] PCP - General Internal Medicine 11/09/15 documented as of this encounter
--- OUTSIDE RECORDS SUMMARY | 2023-04-11 16:03 | XMS_ITS | Encounter Summary ---
Author Name Unknown Organization [facility] Address [address] [place] [address] Care Team Providers Care Cat Sitter Name Role Phone Carolynn Alvarado MD Primary Care Provider [phone] Encounter Details Date Type Department Care Team Description 10/16/2022 10:40 AM CDT Lab Visit [facility] [address] [place] [phone] Osteoporosis with current pathological fracture, unspecified osteoporosis [...] Department Care Team Description 04/15/2023 10:45 AM TRANSITIONAL CARE NURSE Appointment [facility] [address] [facility] [place], [place] [address] Sin Castorena MD 39[address] [place], [place] [address] Injection 05/09/2023 9:00 AM TRANSITIONAL CARE NURSE Appointment [facility] [address] [place], [place] [phone] Carey Rashid DO [address] [place], [place] [address] 05/14/2023 2:15 PM TRANSITIONAL CARE NURSE Appointment [facility] 1515 [facility] [place] [address] Curt Wolfe MD 5740 [place] [address] Nurse, Cardiology II [facility] [address] [place] [address] documented as of this encounter Procedures Procedure Name Priority Date/Time Associated Diagnosis Comments CALCIUM UR 24 HR Routine 10/16/2022 10:3 7 AM CDT Osteoporosis with current pathological fracture, unspecified osteoporosis type, sequela documented in this encounter Results * Calcium Urine 24 hr (10/16/2022 10:37 AM CDT) Urine Volume 1,300 mL 10/16/2022 3:48 PM CDT [facility] Calcium, Urine, Random 7.8 mg/dL 10/16/2022 3:48 PM CDT [facility] Calcium, Urine, 24 Hours 101 100 - 300 mg/24 hr 10/16/2022 3:48 PM CDT [facility] Creatinine, Urine, Random 62 >20 mg/dL 10/16/2022 3:48 PM CDT [facility] Urine Non-blood Collection / Unknown 10/16/2022 10:37 AM CDT 10/16/2022 10:38 AM CDT Reagan Campbell MD LAB_1 [facility] [address] [place] [address], 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
--- OUTSIDE RECORDS SUMMARY | 2023-04-11 16:03 | XMS_ITS | Encounter Summary ---
Author Name Unknown Organization [facility] Address [address] [place] [address] Care Team Providers Care Electromyographic Technician Name Role Phone Carolynn Alvarado MD Primary Care Provider [phone] Reason for Visit * Reason Comments Follow-up Encounter Details Date Type Department Care Team Description 08/19/2022 10:40 AM CDT Office Visit [facility] [address] [facility] 3800 [facility], [place] [address] [place] [address] [place] [phone] Lumbar radiculopathy (Primary Dx); H/O Spinal surgery; [...] symptoms. She has been mostly followed through [facility]. She has follow-up with Neurosurgery scheduled this week. She underwent an epidural steroid injection through [facility] which was completed two the right L1-2 [...] patient has previously had her care at [facility]. She was seen by Neurosurgery and [...] during the summer. Past Medical History: Reviewed. SAND ANALYST reviewed 08/19/2022 IMAGING: MR lumbar spine with and without IV contrast November 23, 2017 FINDINGS: Sagittal: Five lumbar-type vertebral bodies. The conus medullaris terminates at the level of the H2cdkawdxaj body. Normal cord signal. Progression of type [...] Injections: Recently underwent right L1-2 TFESI at [facility]. Concern that some of her symptoms are in fact related to the L3 nerve on the right. 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 Hold on any injections as she recently underwent TOM 10 days ago. Follow-up: 6 weeks Billing based on: Time >40 minutes total time spent reviewing the patient's records, labs, imaging and SAND ANALYST. Time was spent with the patient obtaining [...] Department Care Team Description 04/15/2023 10:45 AM TUMBLE TAILSTOCK TURRET LATHE OPERATOR Appointment [place] [address] [place] [address]. [place] [address] Sin Castorena MD 3900 [place] [address] Injection 05/09/2023 9:00 AM TUMBLE TAILSTOCK TURRET LATHE OPERATOR Appointment [facility] [address] [place], [place] [address] Carey Rashid DO 3800 [place] [address] 05/14/2023 2:15 PM TUMBLE TAILSTOCK TURRET LATHE OPERATOR Appointment [facility] 1515 [place], [place] [phone] Curt Wolfe MD 6500 [place], [place] [address] Nurse, Cardiology II [facility] 1515 [place], [place] [address] documented as of this encounter Visit Diagnoses Diagnosis Lumbar radiculopathy- Primary Thoracic or lumbosacral neuritis or radiculitis, unspecified H/O Spinal surgery Other postprocedural status Low bone mass Disorder of bone and cartilage, unspecified 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
--- OUTSIDE RECORDS SUMMARY | 2023-04-11 16:03 | XMS_ITS | Encounter Summary ---
Author Name Unknown Organization [facility] Address [address] [place] [address] Care Team Providers Care Manager Power Name Role Phone Carolynn Alvarado MD Primary Care Provider [phone] Reason for Referral * Procedure/Equipment (Routine) - Incomplete Specialty Diagnoses / Procedures Referred By Cecille concepcion Referred To Contact Diagnoses Osteoporosis with current pathological fracture, unspecified osteoporosis type, sequela Age-related osteoporosis without current pathological fracture (HRC) Procedures DXA Bone Density [place] [address] [place] [address] Referral ID Status Reason Start Date Expiration Date V isits Requested Visits Authorized [id number] Incomplete 10/08/2023 01/06/2025 1 1 Reason for Visit * Reason Comments OSTEOPOROSIS Encounter Details Date Type Department Care Team Description 10/07/2022 9:00 AM CDT Office Visit [facility] [address] [place], [place] 210[address] Reagan Campbell MD [address] [place] [phone] Osteoporosis with current pathological fracture, unspecified osteoporosis [...] for spinal fusion: She is working with [facility] now. Local Neurosurgerydeclined procedure due to high [...] Department Care Team Description 04/15/2023 10:45 AM CREDIT REPORTER Appointment [facility] [address] 39[address] [facility]. [place], [place] [phone] Sin Castorena MD 3900 [place] [address] Injection 05/09/2023 9:00 AM CREDIT REPORTER Appointment [facility] [address] [place] [address] Carey Rashid DO 3800 [place] [address] 05/14/2023 2:15 PM CREDIT REPORTER Appointment [facility] 1515 [place] [address] Curt Wofle MD 6500 [place] [address] Nurse, Cardiology II [facility] Cardiology [facility] [place] [address] Scheduled Orders Name Type Priority Associated Diagnoses Orde r Schedule DXA Bone Density Spine/Hip Imaging New Routine Osteoporosis with current pathological fracture, unspecified osteoporosis type, sequela Age-related osteoporosis without current pathological fracture (HRC) Expected: 10/08/2023 (Approximate), Expires: 04/09/2024 documented as of this encounter Results * Calcium Urine 24 hr (10/16/2022 10:37 AM CDT) Urine Volume 1,300 mL 10/16/2022 3:48 PM CDT [facility] Calcium, Urine, Random 7.8 mg/dL 10/16/2022 3:48 PM CDT [facility] Calcium, Urine, 24 Hours 101 100 - 300 mg/24 hr 10/16/2022 3:48 PM CDT [facility] Creatinine, Urine, Random 62 >20 mg/dL 10/16/2022 3:48 PM CDT [facility] Urine Non-blood Collection / Unknown 10/16/2022 10:37 AM CDT 10/16/2022 10:38 AM CDT Reagan Campbell MD LAB_1 [facility] 6500 [place] [address], [facility] LAB [address] [place] [address], [facility] [phone] documented in this encounter Visit Diagnoses Diagnosis Osteoporosis with current pathological fracture, unspecified osteoporosis type, sequela- Primary Age-related osteoporosis without current pathological fracture (HRC) Senile osteoporosis 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
--- OUTSIDE RECORDS SUMMARY | 2023-04-11 16:03 | XMS_ITS | Encounter Summary ---
Author Name Unknown Organization [facility] Address [address] [place] [address] Care Team Providers Care Manager Call Name Role Phone Carolynn Alvarado MD Primary Care Provider [phone] Reason for Referral * Procedure/Equipment (Routine) - Incomplete Specialty Diagnoses / Procedures Referred By Cecille concepcion Referred To Contact Procedures [place] [address] [place] [address] Referral ID Status Reason Start Date Expiration Date V isits Requested Visits Authorized [id number] Incomplete 12/20/2022 03/20/2024 1 1 Reason for Visit * Procedure/Equipment (Routine) - Incomplete Specialty Diagnoses / Procedures Referred By Cecille concepcion Referred To Contact Procedures [place] [address] [place] [address] Referral ID Status Reason Start Date Expiration Date V isits Requested Visits Authorized [id number] Incomplete 12/20/2022 03/20/2024 1 1 Encounter Details Date Type Department Care Team Description 12/20/2022 1:20 PM CDT Ancillary Procedure [facility] [address] [place] [address] Social History Tobacco Use Types [...] Department Care Team Description 04/15/2023 10:45 AM POLLUTION CONTROL CHEMIST Appointment [facility] [address] [facility] [address] Sin Castorena MD 3900 [place], [place] [phone] Injection 05/09/2023 9:00 AM POLLUTION CONTROL CHEMIST Appointment [facility] [address] [place], [place] [phone] Carey Rashid DO 3800 [place], [place] [address] 05/14/2023 2:15 PM POLLUTION CONTROL CHEMIST Appointment [facility] 1515 [facility] [place] [phone] Curt Wolfe MD 4540 [place], [place] [phone] Nurse, Cardiology II [facility] Cardiology [facility]5 [facility] [place], [place] [phone] documented as of this encounter Procedures Procedure [...] as of this encounter Care Teams Manager Call Relationship Specialty [place] [address] [address] [address] PCP - General Internal Medicine 11/09/15 documented as of this encounter
--- OUTSIDE RECORDS SUMMARY | 2023-04-11 16:04 | XMS_ITS | Encounter Summary ---
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 [place] [address] Sin Castorena MD 3900 [place] [address] Exudative age-related macular degeneration of [...] Instructions* Laura Bueno - 04/30/2022 10:45 AM STEM MOUNTER Control your blood pressure, blood sugar and [...] to keep the eye closed or use cbjp-hwy-jcvutki artificial tears for comfort. You may see [...] Eye discharge (other than tears/bloody tears) Call [phone] with any problems. MOUNTER documented in this encounter Progress Notes * [...] the patient and family- Sin Castorena MD MOUNTER documented in this encounter Procedure Notes * Laura Bueno - 04/30/2022 10:45 AM CST Intravitreal Injection Operative Report Eye: Right Surgeon: Sin Castorena MD Medicaton: Avastin 0.05 mL (1.25mg) Lot number: [id number], Exp 07/25/2022 Anesthesia: tetracaine, akten 5% povidone [...] of a peripheral shadow in the vision. MOUNTER documented in this encounter Plan of Treatment Upcoming Encounters Date Type Department Care Team Description 04/15/2023 10:45 AM STEM MOUNTER Appointment [facility] [address] [facility] [place], [place] [address] Sin Castorena MD 3900 [place] [address] Injection 05/09/2023 9:00 AM STEM MOUNTER Appointment [facility] [address] [place], [place] [phone] Craey Rashid DO 3800 [place], [place] [phone] 05/14/2023 2:15 PM STEM MOUNTER Appointment [facility] 1515 [facility] [place], [place] [phone] Curt Wolfe MD [address] [place], [place] [address] Nurse, Cardiology II [facility] 1515 [facility] [place], [place] [address] documented as of this encounter Visit Diagnoses [...] documented as of this encounter Care Teams Notching Machine Operator Relationship Specialty [place] [address] [place] [address] PCP - General Internal Medicine 11/09/15 documented as of this encounter
--- OUTSIDE RECORDS SUMMARY | 2023-04-11 16:04 | XMS_ITS | Encounter Summary ---
Author Name Unknown Organization [facility] Address [address] [place] [address] Care Team Providers Care Biomedical Engineering Internship Name Role Phone Carolynn Alvarado MD Primary Care Provider [phone] Reason for Referral * (Routine) - New Request Specialty Diagnoses / Procedures Referred By Cecille concepcion Referred To Contact Diagnoses Exudative age-related macular degeneration of right eye with active choroidal neovascularization (HRC) Procedures AVASTIN 1.25 MG EYE Sin Castorena MD 3900 [place] [address] Referral ID Status Reason Start Date Expiration Date V isits Requested Visits Authorized [id number] New Request 05/28/2022 08/27/2023 1 1 Reason for Visit * Reason Comments Follow-up Encounter Details Date Type Department Care Team Description 05/28/2022 10:15 AM CDT Office Visit [facility] [address] [place] [address]. [place], [place] [phone] Sin Castorena MD 3900 [place] [address] Exudative age-related macular degeneration of [...] to keep the eye closed or use rbij-vng-ozlusov artificial tears for comfort. You may see [...] discharge (other than tears/bloody tears) Call [phone] with any problems. documented in this encounter [...] Medicaton: Avastin 0.05 mL (1.25mg) Lot number: [id number], Exp 08/17/22 Anesthesia: tetracaine, akten 5% povidone [...] Department Care Team Description 04/15/2023 10:[address] [facility] [address] 39[address] [facility] [place], [place] [phone] Sin Castorena MD 3900 [place], [place] [phone] Injection 05/09/2023 9:00 AM SEAL MIXER Appointment [facility] [address] [place] [address] Carey Rashid DO 3800 [place], [place] [phone] 05/14/2023 2:15 PM SEAL MIXER Appointment [facility] 1515 [facility] [place] [phone] Curt Wolfe MD [address] [place], [place] [phone] Nurse, Cardiology II [facility]5 [facility] [place] [phone] documented as of this encounter Visit Diagnoses [...] documented as of this encounter Care Teams Biomedical Engineering Internship Relationship Specialty Start [place] [address] [address] [phone] PCP - General Internal Medicine 11/09/15 documented as of this encounter
--- OUTSIDE RECORDS SUMMARY | 2023-04-11 16:04 | XMS_ITS | Encounter Summary ---
Author Name Unknown Organization [facility] Address [address] [place] [address] Care Team Providers Care Board Machine Set Up Operator Name Role Phone Carolynn Alvarado MD Primary Care Provider Reason for Referral * Procedure/Equipment (Routine) - Incomplete Specialty Diagnoses / Procedures Referred By Contac t Referred To Contact Diagnoses Radiculopathy of lumbar region Procedures MR Lumbar Spine WO IV Carey Wheat DO [address] [place] [address] Referral ID Status Reason Start Date Expiration Date V isits Requested Visits Authorized [id number] Incomplete 07/01/2022 09/30/2023 1 1 Reason for Visit * Reason Comments Follow-up * Consult/Transfer Care (Routine) - New Request Specialty Diagnoses / Procedures Referred By Contselvin t Referred To Contact Pain Management Diagnoses Back pain, unspecified back location, unspecified back pain laterality, unspecified chronicity Jolene Levin, DO [address] [facility] [place] [address] p3800 Pain Clinic [address] [place] [address]. [place] [address] Referral ID Status Reason Start Date Expiration Date V isits Requested Visits Authorized [id number] New Request 05/14/2022 08/13/2023 1 1 Encounter Details Date Type Department Care Team Description 07/01/2022 11:20 AM CDT Office Visit [facility] [address] [facility] [address] [facility] [place] [address] Carey Rashid DO [address] [place] [address] Chronic right-sided low back pain with right-sided [...] Note Referred by: Jolene Levin, DO [address] [facility] [address] [place] [address] Chief Complaint: Chief Complaint Patient presents with [...] patient has previously had her care at [facility]. She was seen by Neurosurgery and non-operative [...] medullaris terminates at the level of the [id number] body. Normal cord signal. Progression of type [...] reviewing the patient's records, labs, imaging and BOXING TRAINER. Time was spent with the patient obtaining [...] Department Care Team Description 04/15/2023 10:45 AM DIAMOND SELECTOR Appointment [facility] [address] [place] [address] Sin Castorena MD [address] [place], [place] [phone] Injection 05/09/2023 9:00 AM DIAMOND SELECTOR Appointment [facility] [address] [place] [address] Carey Rashid DO [address] [place], [place] [phone] 05/14/2023 2:15 PM DIAMOND SELECTOR Appointment [facility] [address] [facility] [place], [place] [phone] Curt Wolfe MD [address] [place] [phone] Nurse, Cardiology II [facility] [address] [place] [phone] documented as of this encounter Results * [...] Bilateral facet hypertrophy. Mild canal stenosis. Similar kaujxaku-zh-[id number] left and moderate right foraminal stenosis. L4-5: [...] bulge. Bilateral facet hypertrophy. Mildcanal stenosis. Similar wggqeshz-md-tyxgww left and moderate rightforaminal stenosis. L4-5: Disc [...] etal. AJNR AM J Neuroradiol 2015:36:811-16. Carey Estrada Rachid [place] [facility] MRI documented in this encounter Visit [...] documented as of this encounter Care Teams Board Machine Set Up Operator Relationship Specialty [place] [address] [place] [address] PCP - General Internal Medicine 11/09/15 documented as of this encounter
--- OUTSIDE RECORDS SUMMARY | 2023-04-11 16:04 | XMS_ITS | Encounter Summary ---
Author Name Unknown Organization [facility] Address [address] [place] [address] Care Team Providers Care Dedicated Truck Driver Name Role Phone Carolynn Alvarado MD Primary Care Provider [phone] Reason for Referral * Consult/Transfer Care (Routine) - New Request Specialty Diagnoses / Procedures Referred By Cecille concepcion Referred To Contact Pain Management Diagnoses Back pain, unspecified back location, unspecified back pain laterality, unspecified chronicity Jolene Levin DO [address] [facility] [place] [address] [facility] Clinic [address] [place] [address] Referral ID Status Reason Start Date Expiration Date V isits Requested Visits Authorized [id number] New Request 05/14/2022 08/13/2023 1 1 Scheduling Instructions Your clinician has recommended an appointment with [facility]. If you have questions about your upcoming visit, you may call [phone]. This recommended service/s may not be covered by your insurance coverage. To find out your specific benefit coverage, please call the number on your insurance card. Question Answer Appointment Urgency? Non-Urgent Consult for Comprehensive Pain Assessment Reason for visit? low back pain [employer] Reason for Visit * Reason Comments BACK PAIN No new injury Encounter Details Date Type Department Care Team Description 05/14/2022 9:30 AM [employer] Office Visit [facility] [address] [place] [phone] Jolene Levin DO [address] [facility] [place] [address] Lumbar radiculopathy (Primary Dx); Back pain, unspecified [...] 59 kg (130 lb) 05/14/2022 9:42 AM [employer] Height 165.1 cm (5' 5) 05/14/2022 9:42 AM [employer] Body Mass Index 21.63 05/14/2022 9:42 AM [employer] documented in this encounter Patient Instructions * Patient Instructions* Mariia Nice, RN - 05/14/2022 9:30 AM [employer] Thank you for choosing [facility] for your health care visit today. Jolene Levin DO Imaging High Risk Case Manager: [facility] [place] - [address] [place] [address]. Call [phone] to schedule. Medication Requests: Prescriptions are filled on Weekdays before 3:00PM For all medication refills: Request a refill using MyChart or contact your Pharmacy Paperwork Requests: FMLA or disability paperwork can be faxed to: [phone] Please allow 7-10 business days for completion of all paperwork. [employer] Worker's Compensation Services: E-mail Address: [email or web address] What is Know Your Cost? Know Your Cost is a service for patients and patient/members to call and receive personalized cost information and estimates across our care group. The phone number is (COST) Friday - Friday 8 AM to 5 PM To request copies of your medical records, call: [phone] (option 4) Diagnosis: low back pain Plan: Follow Up: with Elaine Antonio or Pain clinic (whoever is available first) If you have any questions regarding your visit or next steps, please contact us at [phone]. [employer] documented in this encounter Progress Notes * Jolene Levin, - 05/14/2022 9:30 AM CST Michelle Franz [id number] [address] [facility] Orthopa[facility] 05/14/2022 Chief Complaint: Low back pain History of Present Illness: Michelle Franz is a 76 y.o. female who presents for evaluation of low back pain. Patient with a verychronic history of low back pain and 3 previous microdiskectomies, most recently in April of 2021. The most recent [address] Gallagher at [facility]. She notes it did not help [...] this week. She has been seen at [facility] and had multiple orders for [...] results and treatment plan.This does include non [id number]-xufr time. Jolene Levin DO [employer] documented in this encounter Plan of Treatment Upcoming Encounters Date Type Department Care Team Description 04/15/2023 10:45 AM [employer] Appointment [facility] [address] [facility] [place], [place] [address] Sin Castorena MD [address] [place], [place] [address] Injection 05/09/2023 9:00 AM [employer] Appointment [facility] [address] [place], [place] [address] Carey Rashid DO [address] [place] [address] 05/14/2023 2:15 PM [employer] Appointment [facility] [address] [place] [address] Curt Wolfe MD [address] [place], [place] [phone] Nurse, Cardiology II Jameson [facility] [address] [place], [place] [phone] Scheduled Referrals Name Type Priority Associated Diagnoses Orde r Schedule Pain-Medical Adult Consult [facility] Referral Routine Back pain, unspecified back location, unspecified back pain laterality, unspecified chronicity Ordered: 05/14/2022 documented as of this encounter Visit Diagnoses Diagnosis Lumbar radiculopathy- Primary Thoracic or lumbosacral neuritis or radiculitis, unspecified Back pain, unspecified back location, unspecified back pain laterality, unspecified chronicity 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
--- OUTSIDE RECORDS SUMMARY | 2023-04-11 16:04 | XMS_ITS | Patient Health Record ---
Author Name Unknown Organization [facility] Address [address] [place] [address] [address] [place] [address] Care Team Providers Care Hay Baler Name Role Phone Carolynn Alvarado Primary Care Provider UnavailLarry Rasheed Unavailable [phone] Phillip Gallagher Unavailable Unavailable ALLERGIES Allergen (clinical [...] chronic pain (G89.29) Active confirmed Chronic pain (29462979) Problem Spondylosis without myelopathy or radiculopathy, lumbosacral region (M47.817) Active confirmed Lumbosacral spondylosis without myelopathy (26671453) Problem Cervicalgia (M54.2) Active confirmed Cervicalgia (93392618) Problem Radiculopathy, lumbosacral region (M54.17) Active confirmed Lumbosacral radiculopathy (5945634) PLAN OF TREATMENT No Information Insurance Providers Payer Name Payer Address Payer Phone Subscriber Number Group Number Insured Name Patient Relationship to Insured Coverage Start Date Coverage End Date [employer] Basic [address] [address] [place] [address] [id number] Michelle Franz Self - patient is the insured 2 Medicare Part B [employer]. [address] [place] [address] [id number] Michelle Franz Self - patient is the insured 3 MEDICAL (GENERAL) HISTORY Medical History History ICD Code acid reflux arthritis depression headaches hypertension osteoporosis Surgical History Surgery Date(Month/Year) gall bladder surgery 2018 microdiscectomy 2016,2020,2020 cervical fusions 2014,2017,2020 Hospitalization History Reason Date(Month/Year) see surgical history
--- OUTSIDE RECORDS SUMMARY | 2023-04-11 16:04 | XMS_ITS | Encounter Summary ---
Author Name Unknown Organization [facility] Address [address] [place] [address] Care Team Providers Care Fraternity House Cook Name Role Phone Carolynn Alvarado MD Primary Care Provider Encounter Details Date Type Department Care Team Description 12/08/2018 Refill Order [facility] [address] [place], [place] [phone] [place] [address] [place], [place] [address] Social History Tobacco Use Types Packs/Day Years [...] Department Care Team Description 04/15/2023 10:45 AM RECRUITING INTERN Appointment [facility] [address] [facility] [place], [place] [address] Sin Castorena MD [address] [place] [address] Injection 05/09/2023 9:00 AM RECRUITING INTERN Appointment [facility] [address] [place] [address] Carey Rashid DO [address] [place], [place] [address] 05/14/2023 2:15 PM RECRUITING INTERN Appointment [facility] [address] [facility] [place] [address] Curt Wolfe MD [address] [place], [place] [phone] Nurse, Cardiology II [facility] [address] [facility] [place] [phone] documented as of this encounter Visit Diagnoses Diagnosis Encounter for long-term (current) use of medications- Primary Encounter for long-term (current) use of other medications 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
--- OUTSIDE RECORDS SUMMARY | 2023-04-11 16:04 | XMS_ITS | Encounter Summary ---
Author Name Unknown Organization [facility] Address [address] [place] [address] Care Team Providers Care Communications Clerk Name Role Phone Carolynn Alvarado MD Primary Care Provider [phone] Reason for Referral * Procedure/Equipment (Routine) - New Request Specialty Diagnoses / Procedures Referred By Cecille concepcion Referred To Contact Diagnoses Nonrheumatic aortic valve insufficiency (HRC) Dilation of aorta (HRC) Procedures Echocardiogram Yessy Martinez PA-C [address] [place] [address] Referral ID Status Reason Start Date Expiration Date V isits Requested Visits Authorized [id number] New Request 03/17/2023 06/15/2024 1 1 Reason for Visit * Reason Comments Follow-up Encounter Details Date Type Department Care Team Description 05/30/2022 1:45 PM CDT Office Visit [facility] [address] Cardiology [address] [place] [address] Yessy Martinez PA-C [address] [place] [address] Nurse, Cardiology II Bv Nonrheumatic [...] nurse, ANGELES Blevins, can be reached at [phone] Yessy Martinez PA-C Cardiology documented in this [...] 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 PAST MEDICAL HISTORY: Reviewed in [facility]. CURRENT MEDICATIONS: Reviewed in [facility]. Current cardiac medications: Amlodipine 10 mg daily Atenolol 25 mg daily ALLERGIES: Reviewed in [facility] PHYSICAL EXAM: BP 135/68 (BP Location: Left Arm, BP Cuff Size: Regular) Pulse 66 Ht 5' 5 (165.1 cm) Wt 133 lb (19718 g) BMI 22.13 kg/m?? GENERAL: The patient [...] 1. Lone atrial fibrillation, symptomatic. Seen at [facility] in Apr 2021 for palpitations and [...] on exam today. -Not currently on anticoagulation. [id number] score of 3 (F, age, HTN). If [...] seek medical attention for any concerning symptoms. [facility] documented in this encounter Plan of Treatment Upcoming Encounters Date Type Department Care Team Description 04/15/2023 10:45 AM ELECTRICIAN MACHINE SHOP Appointment [facility] [address] [place] [address] Sin Castorena MD [address] [place], [place] [address] Injection 05/09/2023 9:00 AM ELECTRICIAN MACHINE SHOP Appointment [facility] [address] [place] [address] Carey Rashid DO [address] [place], [place] [address] 05/14/2023 2:15 PM ELECTRICIAN MACHINE SHOP Appointment [facility] [address] [place] [address] Curt Wolfe MD [address] [place] [address] Nurse, Cardiology II [facility] [address] [place] [address] documented as of this encounter Visit Diagnoses Diagnosis Nonrheumatic aortic valve insufficiency (HRC)- Primary Aortic valve disorders Dilation of aorta (HRC) Lone atrial fibrillation (HRC) Atrial fibrillation Essential hypertension (HRC) Unspecified essential hypertension 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
--- OUTSIDE RECORDS SUMMARY | 2023-04-11 16:04 | XMS_ITS | Encounter Summary ---
Author Name Unknown Organization [facility] Address [address] [place] [address] Care Team Providers Care Glove Parts Inspector Name Role Phone Carolynn Alvarado MD Primary Care Provider [phone] Encounter Details Date Type Department Care Team Description 06/26/2022 8:50 AM CDT Lab Visit [facility] [address] [place] [phone] Mixed hyperlipidemia (HRC); Vitamin D deficiency (HRC); [...] Department Care Team Description 04/15/2023 10:45 AM CASK MAKER Appointment [facility] [address] [facility] [place], [place] [address] Sin Castorena MD [address] [place] [address] Injection 05/09/2023 9:00 AM CASK MAKER Appointment [facility] [address] [place] [address] Carey Rashid DO [address] [place], [place] [phone] 05/14/2023 2:15 PM CASK MAKER Appointment [facility] [address] [facility] [place] [address] Curt Wolfe MD [address] [place], [place] [phone] Nurse, Cardiology II Jameson [facility] [address] [facility] [place] [address] documented as of this encounter Procedures [...] 11 <=55 U/L 06/26/2022 10:01 AM CDT [facility] Blood Venipuncture / Unknown 06/26/2022 8:49 AM CDT 06/26/2022 8:49 AM CDT Carolynn Alvarado MD LAB_1 Performing Organization Address [facility] Co de Phone Number [facility] [address] [place] [address], [facility] [phone] * AST (06/26/2022 8:49 AM CDT) Pathologist [facility] AST (SGOT) 16 10 - 40 U/L 06/26/2022 10:01 AM CDT [facility] Blood Venipuncture / Unknown 06/26/2022 8:49 AM CDT 06/26/2022 8:49 AM CDT Carolynn Alvarado MD LAB_1 Performing Organization Address [facility] de Phone Number [facility] [address] [place] [address], [facility] [phone] * TSH (06/26/2022 8:49 AM CDT) Pathologist [facility] TSH, Sensitive 1.32 0.30 - 4.50 uIU/mL 06/26/2022 3:29 PM CDT [facility] Blood Venipuncture / Unknown 06/26/2022 8:49 AM CDT 06/26/2022 8:49 AM CDT Carolynn Alvarado MD LAB_1 Performing Organization Address [facility] Co de Phone Number [facility] [place], [place] [address] [place] [address] * Complete Blood Count-No Diff (06/26/2022 8:49 AM CDT) Pathologist [facility] WBC 8.2 3.5 - 10.5 x10(9)/L 06/26/2022 8:52 AM CDT [facility] RBC 4.24 3.90 - 5.03 x10(12)/L 06/26/2022 8:52 AM CDT [facility] Hemoglobin 13.2 12.0 - 15.5 g/dL 06/26/2022 8:52 AM CDT [facility] HCT 39.5 34.9 - 44.5 % 06/26/2022 8:52 AM CDT [facility] MCV 93.2 80.0 - 100.0 fL 06/26/2022 8:52 AM CDT [facility] MCH 31.1 27.6 - 33.3 pg 06/26/2022 8:52 AM CDT [facility] MCHC 33.4 31.5 - 35.2 g/dL 06/26/2022 8:52 AM CDT [facility] RDW 12.3 11.9 - 15.5 % 06/26/2022 8:52 AM CDT [facility] Platelets 440 150 - 450 x10(9)/L 06/26/2022 8:52 AM CDT [facility] Blood Venipuncture / Unknown 06/26/2022 8:49 AM CDT 06/26/2022 8:49 AM CDT Carolynn Alvarado MD LAB_1 [facility] [address] [place] [address] [phone] * Vitamin D 25-Hydroxy, Total (06/26/2022 8:49 AM CDT) Vitamin D, 25-OH, Total 36 30 - 80 ng/mL 06/26/2022 3:32 PM CDT [facility] Blood Venipuncture / Unknown 06/26/2022 8:49 AM CDT 06/26/2022 8:49 AM CDT Carolynn Alvarado MD LAB_1 [facility] [address] [place], [place] [address] [place] [address] * (ABNORMAL) Lipid Panel and Direct LDL(If Needed) (06/26/2022 8:49 AM CDT) Cholesterol 188 0 - 199 mg/dL 06/26/2022 10:01 AM [facility] Triglyceride 264(H) <=149 mg/dL 06/26/2022 10:01 AM [facility] HDL Cholesterol 47 >=40 mg/dL 3 10:01 AM [facility] LDL, Calculated 88 <130 mg/dL 3 10:01 AM [facility] Non HDL Chol, Calculated 141 <=159 mg/dL 06/26/2022 10:01 AM [facility] Cholesterol/HDL Ratio 4.0 06/26/2022 10:01 AM [facility] Hours Fasting 12 06/26/2022 10:01 AM T [facility] Blood Venipuncture / Unknown 06/26/2022 8:49 AM CDT 06/26/2022 8:49 AM CDT Carolynn Alvarado MD LAB_1 [facility] [address] [place] [address], [facility] [phone] [facility] [address] [place] [address], [facility] [phone] documented in this encounter Visit Diagnoses Diagnosis Mixed hyperlipidemia (HRC) Mixed hyperlipidemia Vitamin D deficiency (HRC) Unspecified vitamin D deficiency Acute non-recurrent maxillary sinusitis Screening for thyroid disorder 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
--- OUTSIDE RECORDS SUMMARY | 2023-04-11 16:04 | XMS_ITS | Encounter Summary ---
Author Name Unknown Organization [facility] Address [address] [place] [address] Care Team Providers Care Sap Bi Architect Name Role Phone Carolynn Alvarado MD Primary Care Provider [phone] Reason for Visit * Reason Comments Injection * Procedure/Equipment (Routine) - Authorized Specialty Diagnoses / Procedures Referred By Cecille concepcion Referred To Contact Diagnoses Osteoporosis with current pathological fracture, unspecified osteoporosis type, sequela Reagan Cambpell MD [address] [place] [address] Referral ID Status Reason Start Date Expiration Date V isits Requested Visits Authorized [id number] Authorized 04/16/2022 07/16/2023 2 2 Encounter Details Date Type Department Care Team Description 05/23/2022 10:00 AM FREEZER MACHINE OPERATOR Nursing Visit [facility] [address] [place] [address] Nurse [facility] Osteoporosis with current pathological fracture, unspecified osteoporosis [...] injection and informed to call with symptoms. ZER MACHINE OPERATOR documented in this encounter Plan of Treatment Upcoming Encounters Date Type Department Care Team Description 04/15/2023 10:45 AM FREEZER MACHINE OPERATOR Appointment [facility] [address] [facility] [place], [place] [address] Sin Castorena MD [address] [place], [place] [address] Injection 05/09/2023 9:00 AM FREEZER MACHINE OPERATOR Appointment [facility] [address] [place], [place] [address] Carey Rashid DO 3800 [place], [place] [id number] 05/14/2023 2:15 PM FREEZER MACHINE OPERATOR Appointment [facility] 1515 [facility] [place] [phone] Curt Wolfe MD 6500 [place], [place] [phone] Nurse, Cardiology II [facility]5 [facility] [place] [phone] Scheduled Referrals Name Type Priority Associated Diagnoses [...] mg Left Arm Given 05/23/2022 10:15 AM FREEZER MACHINE OPERATOR 60 mg L eft Arm documented in this encounter Additional Health Concerns Infection Onset Date Last Indicated Resolved Time 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 (+) 11/07/2015 11/07/2015 documented as of this encounter Care Teams Sap Bi Architect Relationship Specialty [place] [address] [place] [address] PCP - General Internal Medicine 11/09/15 documented as of this encounter
--- OUTSIDE RECORDS SUMMARY | 2023-04-11 16:04 | XMS_ITS | Encounter Summary ---
Author Name Unknown Organization [facility] Address [address], [place] [address] Care Team Providers Care Supervisor Cytology Name Role Phone Carolynn Alvarado MD Primary Care Provider [phone] Reason for Visit * Reason Comments Follow-up Medicare Annual Wellness Sinus Problem Encounter Details Date Type Department Care Team Description 06/13/2022 10:30 AM CDT Office Visit [facility] [address] [place] [address] [place] [id number] [place] [address] Encounter for Medicare annual wellness exam [...] good repair and are slip-resistant. ?? 2001 [employer]. P/SENIORS /#[id number] [facility] - [facility] Family [facility] [address] [address] [facility] [address] [address] [facility]: [facility] [address] [place] [address] [facility] [address] [address] Phone: [phone] [facility] 7th Floor, 515 [place] [address] [facility] 478 [place] [address] [facility] ([facility]) 2000 [place] [address] [facility] [address] [place] [address] [facility] [address] [place] [address] [facility] 2431 [place] [address] [facility] 7th Floor, 515 [place] [address] Learning About Eating More Fruits and Vegetables [...] can you learn more? 1. Go to https://www.Maximus/healthlibrary. 2. Enter F050 in the search box. Current as of: July 23, 2021 Content Version: 13.4 ?? [employer]. Care instructions adapted under license by your healthcare professional. If you have questions about a medical condition or this instruction, always ask your healthcare professional. [employer] disclaims any warranty or liability for your [...] good repair and are slip-resistant. ?? 2002 [employer]. CHP/SENIORS /#[id number] [facility] - [facility] [address] [address] [facility] Dental [facility] [address] [address] [facility]: [facility] 409 [place] [address] [facility] [address] [address] Phone: [phone] [facility] 7th Floor, [address] [place] [address] [facility] 478 [place] [address] [facility] - [facility] ([facility]) [address] [place] [address] [facility] [address] [address] [facility] [address] [place] [address] [facility] [address] [place] [address] [facility] 7th Floor, [address] [place] [address] Learning About Eating More Fruits and Vegetables [...] can you learn more? 1. Go to https://www.[employer]c.[employer]. 2. Enter F050 in the search box. Current as of: July 23, 2021 Content Version: 13.4 ?? [employer]. Care instructions adapted under license by your healthcare professional. If you have questions about a medical condition or this instruction, always ask your healthcare professional. [employer] disclaims any warranty or liability for your use of this information. Michelle was seen today for follow-up, medicare annual wellness and sinus problem. Diagnoses and all orders for this visit: Encounter for Medicare annual wellness exam Mixed hyperlipidemia (HRC) - Lipid Panel and Direct LDL(If Needed); Future - AST; Future - ALT (SGPT); Future Essential hypertension (HRC) Vitamin D deficiency ([facility]) - Vitamin D 25-Hydroxy, Total; Future Acute [...] needs a fusion but Dr Gallagher at [facility] has caution due to osteoporosis. TC reports [...] has symptoms if misses dose. Reviewed at [facility] exam 04/20/06/13/20222020 Menstrual periods: Post menopausal - [id number] d/c'd HRT Calcium/vit D: Recommended daily DEXA: [...] (PROLIA) injection 60 mg 60 mg Subcutaneous [id number] Reagan Campbell MD 60 mg at 05/23/22 [...] Department Care Team Description 04/15/2023 10:45 AM PETROLEUM REFINING FIRER Appointment [facility] [address] [facility] [place], [place] [address] Sin Castorena MD [address] [place], [place] [address] Injection 05/09/2023 9:00 AM PETROLEUM REFINING FIRER Appointment [facility] [address] [place], [place] [phone] Carey Rashid DO 3800 [place], [place] [phone] 05/14/2023 2:15 PM PETROLEUM REFINING FIRER Appointment [facility] 1515 [facility] [place] [address] Curt Wolfe MD [address] [place], [place] [phone] Nurse, Cardiology II [facility] [address] [place] [address] documented as of this encounter Results * ALT (SGPT) (06/26/2022 8:49 AM CDT) [facility] ALT (SGPT) 11 <=55 U/L 06/26/2022 10:01 AM CDT [facility] Blood Venipuncture / Unknown 06/26/2022 8:49 AM CDT 06/26/2022 8:49 AM CDT Carolynn Alvarado MD LAB_1 Performing Organization Address City/[facility]/ZIP Co de Phone Number [facility] [id number] [place] [address], [facility] [phone] * AST (06/26/2022 8:49 AM CDT) [facility] AST (SGOT) 16 10 - 40 U/L 06/26/2022 10:01 AM CDT [facility] Blood Venipuncture / Unknown 06/26/2022 8:49 AM CDT 06/26/2022 8:49 AM CDT Carolynn Alvarado MD LAB_1 [facility] [address] [place] [id number], [facility] [phone] * TSH (06/26/2022 8:49 AM CDT) Pathologist [facility] TSH, Sensitive 1.32 0.30 - 4.50 uIU/mL 06/26/2022 3:29 PM CDT [facility] Blood Venipuncture / Unknown 06/26/2022 8:49 AM CDT 06/26/2022 8:49 AM CDT Carolynn Alvarado MD LAB_1 [facility] [address] * Complete Blood Count-No Diff (06/26/2022 8:49 AM CDT) [facility] WBC 8.2 3.5 - 10.5 x10(9)/L 06/26/2022 8:52 AM CDT [facility] RBC 4.24 3.90 - 5.03 x10(12)/L 06/26/2022 8:52 AM CDT [facility] Hemoglobin 13.2 12.0 - 15.5 g/dL 06/26/2022 8:52 AM CDT [facility] HCT 39.5 34.9 - 44.5 % 06/26/2022 8:52 AM CDT [facility] MCV 93.2 80.0 - 100.0 fL 06/26/2022 8:52 AM CDT [facility] MCH 31.1 27.6 - 33.3 pg 06/26/2022 8:52 AM T [facility] MCHC 33.4 31.5 - 35.2 g/dL 06/26/2022 8:52 AM T [facility] RDW 12.3 11.9 - 15.5 % 06/26/2022 8:52 AM CDT [facility] Platelets 440 150 - 450 x10(9)/L 06/26/2022 8:52 AM T [facility] Blood Venipuncture / Unknown 06/26/2022 8:49 AM CDT 06/26/2022 8:49 AM CDT Carolynn Alvarado MD LAB_1 [facility] [address] [place] [address], [facility] [phone] * Vitamin D 25-Hydroxy, Total (06/26/2022 8:49 AM CDT) Vitamin D, 25-OH, Total 36 30 - 80 ng/mL 06/26/2022 3:32 PM T [facility] Blood Venipuncture / Unknown 06/26/2022 8:49 AM CDT 06/26/2022 8:49 AM CDT Carolynn Alvarado MD LAB_1 [facility] [address] * (ABNORMAL) Lipid Panel and Direct LDL(If Needed) (06/26/2022 8:49 AM CDT) Cholesterol 188 0 - 199 mg/dL 06/26/2022 10:01 AM [facility] Triglyceride 264(H) <=149 mg/dL 06/26/2022 10:01 AM [facility] HDL Cholesterol 47 >=40 mg/dL 3 10:01 AM [facility] LDL, Calculated 88 <130 mg/dL 3 10:01 AM [facility] Non HDL Chol, Calculated 141 <=159 mg/dL 06/26/2022 10:01 AM [facility] Cholesterol/HDL Ratio 4.0 06/26/2022 10:01 AM [facility] Hours Fasting 12 06/26/2022 10:[address] [facility] Blood Venipuncture / Unknown 06/26/2022 8:49 AM CDT 06/26/2022 8:49 AM CDT Carolynn Alvarado MD LAB_1 [facility] [address] [place] [address], [place] [phone] [facility] [address] [place] [address], [facility] [phone] documented in this encounter Visit Diagnoses Diagnosis Encounter for Medicare annual wellness exam- Primary Mixed hyperlipidemia (HRC) Mixed hyperlipidemia Essential hypertension (HRC) Unspecified essential hypertension Vitamin D deficiency (HRC) Unspecified vitamin D deficiency Acute non-recurrent maxillary sinusitis Aneurysm of ascending aorta without rupture (HRC) Chronic neck and back pain Lymphocytosis (HRC) Lymphocytosis (symptomatic) Screening for thyroid disorder 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
--- OUTSIDE RECORDS SUMMARY | 2023-04-11 16:04 | XMS_ITS | Encounter Summary ---
Author Name Unknown Organization [facility] Address [address], [place] [address] Care Team Providers Care Bobbin Dumper Name Role Phone Carolynn Alvarado MD Primary Care Provider [phone] Reason for Visit * Reason Comments Refill fluticasone propiona te (FLONASE) 50 MCG/ACT nasal solution [Pharmacy Med Name: FLUTICASONE 50MCG NASAL SP (120) RX] Encounter Details Date Type Department Care Team Description 06/13/2022 Refill [facility] [address] [place] [address] [place] [address] [place] [address] Refill (fluticasone propionate (FLONASE) 50 [...] (with CAROLYNN ALVARADO) Next scheduled visit: None [employer] Embedded Refills, Reference: [id number], 06/13/2022 11:45:42 AM CDT, Pool: RAYA GANNON REFILL ([id number]) documented in this encounter Plan of Treatment Upcoming Encounters Date Type Department Care Team Description 04/15/2023 10:45 AM ACTIVITIES DIRECTOR SCOUTING Appointment [place] [address] [place] [address]. [place], [place] [phone] Sin Castorena MD 39[address] [place], [place] [phone] Injection 05/09/2023 9:00 AM ACTIVITIES DIRECTOR SCOUTING Appointment [facility] [address] [place], [place] [phone] Carey Rashid DO [address] [place], [place] [phone] 05/14/2023 2:15 PM ACTIVITIES DIRECTOR SCOUTING Appointment [facility] 1515 [facility] [place] [id number] Curt Wolfe MD 6[address] [place], [place] [address] Nurse, Cardiology II [facility] 1515 [facility] [place] [phone] documented as of this encounter Visit Diagnoses Not on filedocumented in this encounter Additional Health Concerns Infection Onset Date Last Indicated Resolved Time 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 (+) 11/07/2015 11/07/2015 documented as of this encounter Care Teams Bobbin Dumper Relationship Specialty Start [place] [address] [place] [address] PCP - General Internal Medicine 11/09/15 documented as of this encounter
--- OUTSIDE RECORDS SUMMARY | 2023-04-11 16:04 | XMS_ITS | Encounter Summary ---
Author Name Unknown Organization [facility] Address [address] [place] [address] Care Team Providers Care Manager Market Intelligence Name Role Phone Carolynn Alvarado MD Primary Care Provider [phone] Reason for Referral * (Routine) - New Request Specialty Diagnoses / Procedures Referred By Cecille concepcion Referred To Contact Diagnoses Exudative age-related macular degeneration of right eye with active choroidal neovascularization (HRC) Procedures AVASTIN 1.25 MG EYE Sin Castorena MD [address] [place] [address] Referral ID Status Reason Start Date Expiration Date V isits Requested Visits Authorized [id number] New Request 06/28/2022 09/27/2023 1 1 Reason for Visit * Reason Comments Follow-up Encounter Details Date Type Department Care Team Description 06/28/2022 10:45 AM CDT Office Visit [facility] [address] [place] [address]. [place] [address] Sin Castorena MD 39[address] [place] [address] Exudative age-related macular degeneration of [...] to keep the eye closed or use [id number] artificial tears for comfort. You may see [...] Eye discharge (other than tears/bloody tears) Call [phone] with any problems. documented in this encounter [...] documented in this encounter Procedure Notes * [place] - 06/28/2022 10:45 AM CDT Intravitreal Injection Operative Report Eye: Right Surgeon: Sin Castorena MD Medicaton: Avastin 0.05 mL (1.25mg) Lot number: [id number], Exp 09/28/2022 Anesthesia: tetracaine, akten 5% povidone [...] Department Care Team Description 04/15/2023 10:45 AM SCREW EYE ASSEMBLER Appointment [facility] [address] [facility]. 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
--- OUTSIDE RECORDS SUMMARY | 2023-04-11 16:04 | XMS_ITS | Encounter Summary ---
Author Name Unknown Organization [facility] Address [address] [place] [address] Care Team Providers Care Produce Department Manager Name Role Phone Carolynn Alvarado MD Primary Care Provider [phone] Encounter Details Date Type Department Care Team Description 05/08/2022 Notes/Orders [facility] [address] Family Medicine [address] [facility] [place], [place] [address] [place] [address] [place] [address] Screening for colon cancer Social History [...] Department Care Team Description 04/15/2023 10:45 AM HAND LASTER Appointment [facility] [address] [facility] [place], [place] [address] Sin Castorena MD [address] [place] [place], [place] [address] Injection 05/09/2023 9:00 AM HAND LASTER Appointment [facility] [address] [place], [place] [phone] Carey Rashid DO [address] [place], [place] [phone] 05/14/2023 2:15 PM HAND LASTER Appointment [facility] 1515 [facility] [place] [phone] Curt Wolfe MD [address] [place], [place] [phone] Nurse, Cardiology II [facility] 1515 [facility] [place] [phone] documented as of this encounter Results * FIT Colon Rectal Cancer Screening (07/08/2022 8:00 AM CDT) FIT Specimen 1 Negative Negative 07/09/2022 9:41 AM CDT [facility] Stool 07/08/2022 8:00 AM CDT 07/08/2022 6:44 PM CDT Carolynn Alvarado MD LAB_1 Performing Organization Address City/State/[facility] Co de Phone Number [facility] [address] [phone] documented in this encounter Visit Diagnoses Diagnosis [...] documented as of this encounter Care Teams Produce Department Manager Relationship Specialty [place] [address] [place] [address] PCP - General Internal Medicine 11/09/15 documented as of this encounter
== END 2023-04-10 07:07 | disposition home or self-care (01) ==
LOC: AMB 04-11 15:57
PROVIDERS: Visit Provider Family Medicine
DX: R10.9 Unspecified abdominal pain (principal); M54.9 Dorsalgia, unspecified
CPT/HCPCS: A0425; A0427

== ENCOUNTER 2024-03-03 04:02 | Emergency (ER) | payer MEDICARE, OTHER, SELFPAY ==
--- OUTSIDE RECORDS SUMMARY | 2024-03-03 04:04 | XMS_ITS ---
Author Organization [facility] Address [address] [place] [address] [address] [place] [address] Care Team Providers Care Household Cook Name Role Phone Carolynn Alvarado Primary Care Provider Unavailabl e James Buchanan Unavailable [phone] Fadumo MENDO[place], [place] Unavailable Unavailabl e REASON FOR VISIT * Local * Diagnostic Bilateral SIJ Injections Problems Problem Type SNOMED Code ICD Code Onset Dates Problem Status W/U Status Risk Notes Problem Solitary sacroiliitis (947543647) Sacroiliitis, not elsewhere classified (M46.1) Active confirmed Encounters Encounter Location Date Provider Diagnosis 104 [facility] [address] [facility] [address] [place] [address] 12/16/2023 James Buchanan Sacroiliitis, not elsewhere classified M46.1 Assessments Encounter Date Diagnosis (ICD Code) Assessment Notes Treatment Notes Treatment Clinical Notes Section Notes 12/16/2023 Sacroiliitis, not elsewhere classified (ICD-10 - M46.1) Plan Of Treatment No Information Progress Notes * FRANZ Michelle LDOB:1945 (77 yo F)Acc No.[id number]:12/16/2023 Patient: Michelle BALDERAS Provider: Noemi Buchanan M.D. :1945 A ge:77 Y S ex:Female Date:12/16/2023 Address:[address] [place] [id number] Pcp:Carolynn Alvarado * Billing Information: * Visit Code: * Procedure Codes: 01784 Injection for SIJ arthrography. Modifiers: 50 A4930 Gloves Sterile Per Pair. Units: 2.00. A4209 5 cc - 19 cc gauge syringe. Units: 3.00. A4215 Vassar only Sterile any size each. Units: 2.00. A4550 Spinal Support Tray. S0020 Bupivicaine 0.5% mg/ml. Units: 5.00. Q9967 Omnipaque 300 mgl/mL. Units: 3.00. * Sign off status: Completed true * Provider: Noemi Buchanan M.D. Date: Generated for Beatriz mckeon/Axel/Imtiazitting on: 05/04/2023 04:04 AM UPPER INSPECTOR
--- OUTSIDE RECORDS SUMMARY | 2024-03-03 04:04 | XMS_ITS ---
Author Organization [facility] Address [address] [place] [address] [address] [place] [address] Care Team Providers Care Construction Trench Digger Name Role Phone Carolynn Alvarado Primary Care Provider James White Unavailable [phone] Nj Thorne PA-C Unavailable Unavailabl e REASON FOR VISIT Dx SIJ - fail Medications Medication SIG (Take, Route, Frequency, Duration) Notes Start Date End Date Status DULoxetine HCl 60 MG 2 capsule Orally On ce a day Active LORazepam 0.5 MG 1 tablet Orally Twic e a day Active Desipramine HCl 25 MG 1 tablet Orally On ce a day Active Norvasc 5 MG 4 tablet Orally Once a day Active Atenolol 25 MG 1 tablet Orally Once a day Active Warfarin Sodium 1 MG 1 tablet Orally Onc e a day 12/16/2023 Active Atorvastatin Calcium 10 MG 1 tablet Oral ly Once a day 12/16/2023 Active DULoxetine HCl 30 MG 1 capsule Orally Tw ice a day Active Amiodarone HCl 100 MG 1 tablet Orally On ce a day 12/16/2023 Active Encounters Encounter Location Date Provider Diagnosis [facility] [address] [place] [address] [address] [place] [address] 12/15/2023 James Buchanan Plan Of Treatment No Information Progress Notes * Michelle FRANZ LDOB:1945 (78 yo F)Acc No.[id number]:12/15/2023 Patient: Michelle BALDERAS :1945 A ge:77 Y S ex:Female Address:[address] [place], [place] [address] [address] Subjective: * Chief Complaints: * D x SIJ - fail * Medical History: * Surgical History: c ervical fusions 2014,2017,2020microdiscectomy 2016,2020,2020gall bladder surgery 2018Spinal Fusion 2023 * Hospitalization/Major Diagno stic Procedure: s ee surgical history * Medications: T akingAmiodarone HCl 100 MG Tablet 1 tablet Orally Once a day Atorvastatin Calcium 10 MG Tablet 1 tablet Orally Once a day Warfarin Sodium 1 MG Tablet 1 tablet Orally Once a day DULoxetine HCl 30 MG Capsule Delayed Release Particles 1 capsule Orally Twice a day LORazepam 0.5 MG Tablet 1 tablet Orally Twice a day DULoxetine HCl 60 MG Capsule Delayed Release Particles 2 capsule Orally Once a day Norvasc 5 MG Tablet 4 tablet Orally Once a day Desipramine HCl 25 MG Tablet 1 tablet Orally Once a day Atenolol 25 MG Tablet 1 tablet Orally Once a day Medication List reviewed and reconciled with the patientTaking Amiodarone HCl 100 MG Tablet 1 tablet Orally Once a day Taking Atorvastatin Calcium 10 MG Tablet 1 tablet Orally Once a day Taking Warfarin Sodium 1 MG Tablet 1 tablet Orally Once a day Taking DULoxetine HCl 30 MG Capsule Delayed Release Particles 1 capsule Orally Twice a day Taking LORazepam 0.5 MG Tablet 1 tablet Orally Twice a day Taking DULoxetine HCl 60 MG Capsule Delayed Release Particles 2 capsule Orally Once a day Taking Norvasc 5 MG Tablet 4 tablet Orally Once a day Taking Desipramine HCl 25 MG Tablet 1 tablet Orally Once a day Taking Atenolol 25 MG Tablet 1 tablet Orally Once a day Medication List reviewed and reconciled with the patient Objective: * Vitals: * Physical Examination: Assessment: Plan: * Treatment: * Procedure Codes: * true * Date: Generated for Beatriz mckeon/Axel/Mohit on: 05/04/2023 04:04 AM GLUE MAKER BONE
--- OUTSIDE RECORDS SUMMARY | 2024-03-03 04:04 | XMS_ITS ---
Author Organization [facility] Address [address] [place] [address] [address] [place] [address] Care Team Providers Care Fruit And Vegetable Packer Name Role Phone AlvaradoCarolynn gerard Primary Care Provider James White Unavailable [phone] jN Thorne PA-C Unavailable Chuck Gary Unavailable [phone] REASON FOR VISIT follow up Encounters Encounter Location Date Provider Diagnosis [address] [facility] [address] [facility] [address] [place] [address] 01/20/2024 Chuck Euceda Other chronic pain G89.29 Assessments Encounter Date Diagnosis (ICD Code) Assessment Notes Treatment Notes Treatment Clinical Notes Section Notes 01/20/2024 Other chronic pain (ICD-10 - G89.29) Michelle returns to clinic today for a follow up evaluation regarding her chronic low back and right lower extremity pain. I have reviewed the [facility] database and did not find any inconsistencies. [...] lower extremity pain. I have reviewed the [facility] database and did not find any inconsistencies. [...] * Michelle FRANZ LDOB:1945 (78 yo F)Acc No.[id number]:01/20/2024 Progress Notes Patient: Michelle BALDERAS Provider: Noemi Euceda NP :1945 A ge:78 Y S ex:Female Date:01/20/2024 Address:[address] [place], [place] [address] Pcp:Carolynn Alvarado Subjective: * Chief Complaints: * [...] L1-[address] Isai Foss of [facility] on 04/01/2023. She inquires about injections today for better management of her pain. She reports difficulty eating, cleaning, walking, driving and ADLs due to this pain. - - - - - - - - - - - - -- Procedure History: - 04/01/2023 L1-[address] Isai Foss of [facility] - 10/21/2023 bilateral L5-S1 MBB (1st set): 50% relief, failed - 10/16/2021 Right L4-S1 TFE - 09/05/2021 Bilateral L4-S1 MBBs: 50-60% relief - 04/17/2021 Right L1-3 discectomy (Dr. Gallagher) - 03/21/2021 Right L2-3 TFE - 01/30/2021 L2-3 laminectomy - 2016 Unspecified lumbar surgery - (Undated) 3x cervical surgeries Previous Therapy: She completed 6 sessions of therapy at [facility] from 08/2021 to 10/08/2021 Current Pain Medications: n/a Previous Pain Medications: Tramadol, Percocet returns to clinic today for a follow up evaluation regarding her chronic pain. We discussed her current symptoms and medications. I have reviewed the [facility] database and did not find any inconsistencies. [...] Electronic signature of Alexandr Euceda CNP on 03/03/2024 at 04:03 AM PHYSICAL THERAPY ASST Sign off status: Pending * Provider: Noemi Euceda NP Date: 03/21/2023 Generated for Beatriz mckeon/Axel/Mohit on: 05/04/2023 04:03 AM PHYSICAL THERAPY ASST History and Physical Notes * Examination Category Sub-Category Detail Notes Category Not es Musculoskeletal Constitutional: normal body habi tus, well groomed, in no acute distress Musculoskeletal: normal gait and stat ion, sits comfortablyPelvis/sacrum:, Positive Catlaina finger, bilateral SIJ TTP, positive KRYSTINA bilaterally, positive thigh thrusts bilaterally, positive pelvic compressions bilaterally. Skin: No rashes, scars, or lesions on visible skin Neurological normal coordination upper extremities, normal coordination lower extremities, alert and oriented x3, normal mood and affect
--- OUTSIDE RECORDS SUMMARY | 2024-03-03 04:04 | XMS_ITS | Patient Health Record ---
Author Organization [facility] Address [address] [place] [address] [address] [place] [address] Care Team Providers Care Multiple Games Dealer Name Role Phone Christiano Carolynn Primary Care Provider UnavailJames Moore Unavailable [phone] Nj Thorne PA-C Unavailable Unavailabl Brian Fitzpatrick Unavailable [phone] Toro Rashid Unavailable [phone] Chuck Euceda Unavailable [phone] Allergies Allergen (clinical drug ingredient) Drug/Non Drug Allergy documented on EMR Reaction Allergy Type Onset Date Status lisinopril Lisinopril Unknown Drug Allergy Activ e tizanidine Tizanidine hallucination Drug Allergy A ctive Reason For Referral No Information Medications Medication SIG (Take, Route, Frequency, Duration) Notes Start Date End Date Status Warfarin Sodium 1 MG 1 tablet Orally Onc e a day 12/16/2023 Active Atorvastatin Calcium 10 MG 1 tablet Oral ly Once a day 12/16/2023 Active DULoxetine HCl 30 MG 1 capsule Orally Tw ice a day Active DULoxetine HCl 60 MG 2 capsule Orally On ce a day Active LORazepam 0.5 MG 1 tablet Orally Twic e a day Active Desipramine HCl 25 MG 1 tablet Orally On ce a day Active Norvasc 5 MG 4 tablet Orally Once a day Active Atenolol 25 MG 1 tablet Orally Once a day Active Amiodarone HCl 100 MG 1 tablet Orally On ce a day 12/16/2023 Active Social History Tobacco Use: Social History Observation Description Date Details (start date - stop date) Never Smoker NA - NA Tobacco Use/Smoking: Question Answer Notes Are you a nonsmoker Alcohol Screen Question Answer Notes Did you have a drink containing alcohol in the p ast year? No Points 0 Interpretation Negative Tobacco Control (Standard) Question Answer Notes Tobacco use: Nonsmoker AUDIT-C (Standard) Question Answer Notes Did you have a drink containing alcohol in the p ast year? No Points 0 Interpretation Negative Problems Problem Type SNOMED Code ICD Code Onset Dates Problem Status W/U Status Risk Notes Problem Chronic pain (21025991) Other chronic pain (G89.29) Active confirmed Problem Solitary sacroiliitis (889116554) Sacroiliitis, not elsewhere classified (M46.1) Active confirmed Problem Lumbosacral spondylosis without myelopathy (39785523) Spondylosis without myelopathy or radiculopathy, lumbosacral region (M47.817) Active confirmed Problem Cervicalgia (27623610) Cervicalgia (M54.2) Active confirmed Problem Lumbosacral radiculopathy (5840268) Radiculopathy, lumbosacral region (M54.17) Active confirmed Problem Post-laminectomy syndrome (70356996) Post laminectomy syndrome (M96.1) Active confirmed Problem Solitary sacroiliitis (905428232) Sacroiliitis (M46.1) Active confirmed Vital Signs Blood pressure diastolic 68 mm Hg 11/27/2023 Height 64 in 11/27/2023 Blood pressure systolic 114 mm Hg 11/27/2023 Weight 136 lbs 11/27/2023 BMI 23.34 kg/m2 11/27/2023 Procedures Procedure Date Ordered Date Performed Result Body Sit e Intervention: 11/27/2023 12/12/2023 Sched 12/15 Encounters Encounter Location Date Provider Diagnosis [facility] [address] [place] [address] 10/08/2023 James Buchanan [facility] [address] [place] [address] 10/20/2023 James Buchanan [facility] [address] [place] [address] 12/02/2023 James Buchanan [facility] [address] [place] [address] 12/15/2023 James Buchanan [address] [facility] [address] [place] [address] 11/27/2023 Toro Rashid Post laminectomy syndrome M96.1 ; Sacroiliitis M46.1 and Other chronic pain G89.29 [address] [facility] [address] [facility] [address] [place] [address] 12/16/2023 James Buchanan Sacroiliitis, not elsewhere classified M46.1 [address] [facility] [address] [facility] [address] [place] [address] 10/21/2023 James Buchanan Spondylosis without myelopathy or radiculopathy, lumbosacral region M47.817 Assessments Encounter Date Diagnosis (ICD Code) Assessment Notes Treatment Notes Treatment Clinical Notes Section Notes 10/21/2023 Spondylosis without myelopathy or radiculopathy, lumbosacral region (ICD-10 - M47.817) 11/27/2023 Post laminectomy syndrome (ICD-10 - M96.1) 11/27/2023 Sacroiliitis (ICD-10 - M46.1) 12/16/2023 Sacroiliitis, not elsewhere classified (ICD-10 - M46.1) 11/27/2023 Other chronic pain (ICD-10 - G89.29) Michelle returns to clinic today for a follow up evaluation regarding her chronic low back and right lower extremity pain. I have reviewed the [facility] database and did not find any inconsistencies. [...] call with any questions, problems or concerns. 11/27/2023 Other Miguelina, Grant Riley , am serving as a scribe to document services personally performed by Toro Rashid PA-C, based upon my observations and the provider's statements to me. All documentation has been reviewed by the aforementioned REJI as well as Tra Garzon MD, prior to being entered into the official medical record. I, Tra Garzon MD attest that the above named individual is acting in scribe capacity, has observed Toro Rachid's performance of the services and has documented them in accordance with her direction. The documentation recorded by the scribe accurately reflects the service Toro Rashid PA-C, personally performed and the decisions made by her. 11/12/2023 Other I, Amanuel Jefferson , am serving as a scribe to document services personally performed by Brian Mcghee PA-C, based upon my observations and the provider's statements to me. All documentation has been reviewed by the aforementioned REJI. I, Brian Mcghee PA-C, attest that the above named individual is acting in scribe capacity, has observed my performance of the services and has documented them in accordance with my direction. The documentation recorded by the scribe accurately reflects the service I personally performed and the decisions made during the clinic visit. Plan Of Treatment No Information Insurance Providers Payer Name Payer Address Payer Phone Subscriber Number Group Number Insured Name Patient Relationship to Insured Coverage Start Date Coverage End Date [employer] [address] [address] [place] [address] [id number] Michelle Franz Self - patient is the insured 2 Medicare Part B [employer] [address] [place] [address] [id number] Michelle Franz Self - patient is the insured 3 Medical (General) History Medical History History ICD Code acid reflux arthritis depression headaches hypertension osteoporosis Surgical History Surgery Date(Month/Year) Spinal Fusion 2023 gall bladder surgery 2018 microdiscectomy 2016,2020,2020 cervical fusions 2014,2017,2020 Hospitalization History Reason Date(Month/Year) see surgical history
[2024-03-03 04:14] VITALS: BP 174/94; PULSE 73; RESP 16; TEMP 36.8; O2SAT 97; BMI 22.3
[2024-03-03 04:47] LABS: INR 2.53 (0.91-1.10); Prothrombin Time 29.2 Seconds
--- NOTE | 2024-03-03 05:01 | ED_ITS ---
History of Present Illness General Date Seen: 03/03/24 Chief Complaint: Epistaxis/Nosebleed Stated Complaint: Nosebleed, on thinners Time Seen by Provider: 03/03/24 04:26 Source: patient and family Mode of arrival: ambulatory Limitations: no limitations History of Present Illness HPI Narrative: 78-year-old female who awoke at approximately 3:30 a.m. with a nosebleed on the right nostril. There was some blood down the back of the throat as well. She tried pinching the nose but the bleeding did not stop and she is brought into the ER by her grandson. She has not had previous ER visits for nose bleeds. She is on Coumadin due to atrial fibrillation. About 10 days ago her INR was 2.9. No trauma to the nose. She did have nose bleeds when she was younger requiring cauterization by an ENT but that has been many years. No recent illness, cough, head congestion. Related Data Home Medications ?Medication ?Instructions ?Recorded ?Confirmed amlodipine 10 mg tablet 10 mg PO 04/05/22 02/13/23 atenolol 25 mg tablet 25 mg PO Q24H 04/05/22 02/23/23 desipramine 25 mg tablet 25 mg PO 04/05/22 02/13/23 duloxetine 20 mg capsule,delayed 80 mg PO 04/05/22 02/13/23 release duloxetine 60 mg capsule,delayed ea PO 04/05/22 02/13/23 release famotidine 20 mg tablet 20 mg PO 04/05/22 02/13/23 lorazepam 0.5 mg tablet 0.5 mg PO 04/05/22 02/13/23 methocarbamol 500 mg tablet 500 mg PO 04/05/22 02/13/23 pregabalin 25 mg capsule (Lyrica) 25 mg PO DAILY 02/23/23 02/23/23 warfarin 1 mg tablet mg PO 03/03/24 Previous Rx's ?Medication ?Instructions ?Recorded methylprednisolone 4 mg tablets in See Rx Instructions PO PER PKG DIR 06/25/22 a dose pack (Medrol (Oscar)) #21 ea Allergies Allergy/AdvReac Type Severity Reaction Status Date / Time lisinopril Allergy Unknown Headache Verified 02/23/23 10:38 tizanidine AdvReac Verified 03/03/24 04:16 Review of Systems Narrative: Review of systems is outlined above otherwise noted to be negative. [facility] Medical History (Updated 03/03/24 @ 05:10 by Florian Mims MD) Primary hypertension ?I10 - Essential (primary) hypertension (ICD-10) Generalized anxiety disorder ?F41.1 - Generalized anxiety disorder (ICD-10) GERD (gastroesophageal reflux disease) ?K21.9 - Gastro-esophageal reflux disease without esophagitis (ICD-10) Atrial fibrillation ?I48.91 - Unspecified atrial fibrillation (ICD-10) Social History Smoking Status: Never smoker Do you use any of these nicotine containing products: None Second hand tobacco smoke exposure: No How often do you have a drink containing alcohol: never How often do you have six or more drinks on one occasion: Never AUDIT-C Alcohol total score: 0 Non-prescribed substance use: denies use service: No Exam Narrative: Exam Narrative: Vitals noted. HEENT: Conjunctiva clear. Tympanic membranes are pearly white bilaterally. Posterior pharynx is clear without erythema or exudate. Neck is supple without adenopathy. Lungs: Clear to auscultation in all jones. No wheezes, rales, rhonchi. Heart: Irregularly irregular rate and rhythm without murmur. Abdomen: Soft and nontender. No guarding, rigidity, rebound. Bowel sounds are normal. No palpable masses. Extremities: No cyanosis or edema. Good distal pulses. Skin: No abnormalities noted of the exposed skin. Neurologic: Awake, alert, fully oriented. Neurologic exam is nonfocal. Initially there is active bleeding from both sides of the nose. There is also blood running down the back of the throat. A clamp is placed but the bleeding did not stop. Afrin is inserted bilaterally and the bleeding did not appear to slow down. Const: Vital Signs, click to edit/add: Vital Signs - 24 hr 03/03/24 04:14 03/03/24 05:59 Temperature 98.2 F Pulse Rate [Pulse Oximeter] 73 67 Respiratory Rate 16 16 Blood Pressure [Ri ght Upper Arm] 174/94 H 148/88 H Pulse Oximetry 97 99 Oxygen Delivery Me thod Room Air Room Air Course Course ED Course: INR is 2.5. Initially there is active bleeding from both sides of the nose. There is also blood running down the back of the throat. A clamp is placed but the bleeding did not stop. Afrin is inserted bilaterally and the bleeding did not appear to slow down. A Merocel pack is placed on the right and expanded nicely. She tolerated this well. With that in place initially there was no bleeding on the left and no leakage around the pack. After tender 15 minutes of observation she was continuing to have a slow trickle of blood down the back of her throat. Reevaluation(s) Reevaluation #1: The Merocel pack was removed and replaced with a large rhino rocket. Reevaluation #2: Unfortunately the patient continues to have a slow trickle of blood down the back of her throat. No large clots. No vomiting. At 6:00 a.m. I did contact Dr. Vicente who begins his clinic here in [place] at 9:00 a.m.. He has kindly agreed to come and evaluate the patient at around 8:00 a.m. for definitive treatment. Vital Signs Vital signs: Initial Vital Signs Temperature 98.2 F 03/03/24 04:14 Temperature Source Temporal Artery Scan 03/03/24 04:14 Pulse Rate 73 03/03/24 04:14 Respiratory Rate 16 03/03/24 04:14 Blood Pressure 174/94 H 03/03/24 04:14 Blood Pressure Mean 120 H 03/03/24 04:14 Blood Pressure Position Sitting 03/03/24 04:14 Pulse Oximetry 97 03/03/24 04:14 Oxygen Delivery Method Room Air 03/03/24 04:14 Vital Signs Temperature 98.2 F 03/03/24 04:14 Pulse Rate 73 03/03/24 04:14 Respiratory Rate 16 03/03/24 04:14 Blood Pressure 174/94 H 03/03/24 04:14 Pulse Oximetry 97 03/03/24 04:14 Oxygen Delivery Method Room Air 03/03/24 04:14 Temperature 98.2 F 03/03/24 04:14 Pulse Rate 67 03/03/24 05:59 Respiratory Rate 16 03/03/24 05:59 Blood Pressure 148/88 H 03/03/24 05:59 Pulse Oximetry 99 03/03/24 05:59 Oxygen Delivery Method Room Air 03/03/24 05:59 MDM - Epistaxis Lab Data Labs: Lab Results 03/03/24 Range/Units 04:25 INR 2.53 H (0.91-1.10) Discharge Plan Discharge Clinical Impression: Epistaxis Patient Disposition: Home, Self-Care Condition: Improved Instructions: Nosebleed (ED) Additional Instructions: Leave the packing in place and follow-up with your PCP in 48 hours. If there is recurrent bleeding that does not resolve with 30 minutes of clamping return to the emergency department. Avoid blowing your nose. Prescriptions: No Action duloxetine 60 mg capsule,delayed release(DR/EC) PO amlodipine 10 mg tablet 10 mg PO duloxetine 20 mg capsule,delayed release(DR/EC) 80 mg PO Patient Comments: TAKE 1 CAPSULE BY MOUTH EVERY DAY atenolol 25 mg tablet 25 mg PO Q24H lorazepam 0.5 mg tablet 0.5 mg PO Patient Comments: TAKE 1-2 TABLETS BY MOUTH EVERY NIGHT AT BEDTIME. desipramine 25 mg tablet 25 mg PO Patient Comments: TAKE 1 TABLET BY MOUTH EVERY MORNING. UPDATE REFILLS FOR 1 YEAR. methocarbamol 500 mg tablet 500 mg PO famotidine 20 mg tablet 20 mg PO pregabalin [Lyrica] 25 mg capsule 25 mg PO DAILY warfarin 1 mg tablet PO methylprednisolone [Medrol (Oscar)] 4 mg tablets,dose pack See Rx Instructions PO PER PKG DIR Qty: 21 0RF Rx Instructions: PO PER PKG DIR Follow Up/Referrals: Provider,Not a Local [Primary Care Provider] - Stand Alone Forms: [employer] Info Instructions
[2024-03-03 05:59] VITALS: BP 148/88; PULSE 67; RESP 16; O2SAT 99
[2024-03-03 07:42] VITALS: BP 138/71; PULSE 74; O2SAT 97
[2024-03-03 07:45] VITALS: O2SAT 97
== END 2024-03-03 08:31 | disposition home or self-care (01) ==
PROVIDERS: Emergency Provider Family Medicine
DX: R04.0 Epistaxis (principal); I48.91 Unspecified atrial fibrillation; Z79.01 Long term (current) use of anticoagulants
CPT/HCPCS: 30901; 36415; 85610; 94761; 99283

== ENCOUNTER 2024-08-17 22:54 | Emergency (ER) | payer MEDICARE, OTHER, SELFPAY ==
--- OUTSIDE RECORDS SUMMARY | 2024-01-20 09:00 | XMS_ITS ---
Author Organization [facility] Address [address] [place] [address] [address] [place] [address] Care Team Providers Care Food Porter Name Role Phone AlvaradoCarolynn gerard Primary Care Provider James White Unavailable [phone] Nj Thorne PA-C Unavailable Chuck Gary Unavailable [phone] REASON FOR VISIT follow up Encounters Encounter Location Date Provider Diagnosis [address] [facility] [address] [facility] [address] [place] [address] 01/20/2024 Chuck Euceda Other chronic pain G89.29 Assessments Encounter Date Diagnosis (ICD Code) Assessment Notes Treatment Notes Treatment Clinical Notes Section Notes 01/20/2024 Other chronic pain (ICD-10 - G89.29) Michelle returns to clinic today for a follow up evaluation regarding her chronic low back and right lower extremity pain. I have reviewed the [facility] database and did not find any inconsistencies. We discussed her current symptoms and medications. I will continue with a treatment plan consisting of conservative treatment at this time. To address Michelle's ongoing pain, based on her clinical presentation and my physical examination, I have recommended a bilateral diagnostic SIJ injection for better management of her ongoing pain. This procedure was discussed in detail with the patient today and orders were placed accordingly. This treatment plan was reviewed with Michelle, and she was agreeable. I will continue to monitor her progress and she will follow up as needed. Plan: 1. Order bilateral diagnostic SIJ injection 2. Follow up as needed Discharge instructions reviewed verbally. Discussed the risks/benefits of prescribed medication. The patient was instructed to return to the office as scheduled and call with any questions, problems or concerns. Plan Of Treatment Treatment Notes Assessment Notes Other chronic pain Michelle returns to clinic today for a follow up evaluation regarding her chronic low back and right lower extremity pain. I have reviewed the [facility] database and did not find any inconsistencies. We discussed her current symptoms and medications. I will continue with a treatment plan consisting of conservative treatment at this time. To address Michelle's ongoing pain, based on her clinical presentation and my physical examination, I have recommended a bilateral diagnostic SIJ injection for better management of her ongoing pain. This procedure was discussed in detail with the patient today and orders were placed accordingly. This treatment plan was reviewed with Michelle, and she was agreeable. I will continue to monitor her progress and she will follow up as needed. Plan: 1. Order bilateral diagnostic SIJ injection 2. Follow up as needed Discharge instructions reviewed verbally. Discussed the risks/benefits of prescribed medication. The patient was instructed to return to the office as scheduled and call with any questions, problems or concerns. Progress Notes * Michelle FRANZ LDOB:1945 (78 yo F)Acc No.[id number]:01/20/2024 Progress Notes Patient: Michelle BALDERAS Provider: Noemi Euceda NP :1945 A ge:78 Y S ex:Female Date:01/20/2024 Address:[address] [place], [place] [address] Pcp:Carolynn Alvarado Subjective: * Chief Complaints: * 1 . Follow up. * HPI: Deonna garza visit: Michelle returns regarding her chronic low back/buttocks and right lower extremity pain. Interval History: She presents after completion of her 1st set of bilateral L5-S1 MBBs on 10/21/2023 from which she received 50% relief, therefore failed. She reports that she completed a L1-[address] Isai Foss of [facility] on 04/01/2023. She inquires about injections today for better management of her pain. She reports difficulty eating, cleaning, walking, driving and ADLs due to this pain. - - - - - - - - - - - - -- Procedure History: - 04/01/2023 L1-[address] Isai Foss of [facility] - 10/21/2023 bilateral L5-S1 MBB (1st set): 50% relief, failed - 10/16/2021 Right L4-S1 TFE - 09/05/2021 Bilateral L4-S1 MBBs: 50-60% relief - 04/17/2021 Right L1-3 discectomy (Dr. Gallagher) - 03/21/2021 Right L2-3 TFE - 01/30/2021 L2-3 laminectomy - 2016 Unspecified lumbar surgery - (Undated) 3x cervical surgeries Previous Therapy: She completed 6 sessions of therapy at [facility] from 08/2021 to 10/08/2021 Current Pain Medications: n/a Previous Pain Medications: Tramadol, Percocet returns to clinic today for a follow up evaluation regarding her chronic pain. We discussed her current symptoms and medications. I have reviewed the [facility] database and did not find any inconsistencies. I refilled her medications as listed above as she continues to note relief without side effects. This treatment plan was reviewed with the patient, and she was agreeable. I will continue to monitor her progress and she will follow up in one month or sooner if needed. Plan: Discharge instructions reviewed verbally. Discussed the risks/benefits of prescribed medication. The patient is aware that medication may be discontinued at any time due to poor compliance with visits, and recommended treatment and/or if patient doesn't adhere to the signed pain contract. The patient was instructed to return to the office as scheduled and call with any questions, problems or concerns. * Medical History: Objective: * Vitals: * Examination: M usculoskeletal: Constitutional: n ormal body habitus, well groomed, in no acute distress. Musculoskeletal: n ormal gait and station, sits comfortably Pelvis/sacrum:, Positive Catalina finger, bilateral SIJ TTP, positive KRYSTINA bilaterally, positive thigh thrusts bilaterally, positive pelvic compressions bilaterally.. Skin: N o rashes, scars, or lesions on visible skin. Neurological n ormal coordination upper extremities, normal coordination lower extremities, alert and oriented x3, normal mood and affect. ? Assessment: * Assessment: 1. O ther chronic pain - G89.29 Plan: * Treatment: * Billing Information: * Visit Code: * Procedure Codes: * Electronic signature of Alexandr Euceda CNP on 08/18/2024 at 12:00 AM CDT Sign off status: Pending * Provider: Noemi Euceda NP Date: 03/21/2023 Generated for Beatriz mckeon/Axel/Mohit on: 08/18/2024 12:00 AM CDT History and Physical Notes * Examination Category Sub-Category Detail Notes Category Not es Musculoskeletal Constitutional: normal body habi tus, well groomed, in no acute distress Musculoskeletal: normal gait and stat ion, sits comfortablyPelvis/sacrum:, Positive Catalina finger, bilateral SIJ TTP, positive KRYSTINA bilaterally, positive thigh thrusts bilaterally, positive pelvic compressions bilaterally. Skin: No rashes, scars, or lesions on visible skin Neurological normal coordination upper extremities, normal coordination lower extremities, alert and oriented x3, normal mood and affect
--- OUTSIDE RECORDS SUMMARY | 2024-06-08 13:15 | XMS_ITS | Encounter Summary ---
Author Organization [facility] Address [address] [address] Care Team Providers Care Visiting Housekeeper Name Role Phone Carolynn Alvarado MD Primary Care Provider Reason for Visit * Reason Comments Injection Encounter Details Date Type Department Care Team (Latest Contact Info) Description 06/08/2024 1:15 PM CDT Office Visit [facility] [address] [facility] 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) (Primary Dx); Epiretinal membrane, left eye Social History Tobacco Use Types Packs/Day Years Used Date Smoking Tobacco: Never Smokeless Tobacco: Never Alcohol Use Standard Drinks/Week Comments No 0 (1 standard drink = 0.6 oz pur e alcohol) PHQ-2 Answer Date Recorded PHQ-2 Score 1 05/27/2024 Comments No Sex and Gender Information Value Date Recorded Sex Assigned at Not on file Legal Sex Female 4:44 AM CDT Gender Identity Not on file Sexual Orientation Not on file Occupation Industry Job Start Date Job End Date retired Not on file Not on file Not on file documented as of this encounter Patient Instructions * Patient Instructions* Kandice Lindo, SAM - 06/08/2024 1:15 PM CDT Control your blood pressure, blood [...] to keep the eye closed or use vyeg-cje-xzytfjz artificial tears for comfort. You may see [...] Eye discharge (other than tears/bloody tears) Call [phone] with any problems. documented in this encounter Progress Notes * Sin Castorena MD - 06/08/2024 1:15 PM CDT The medications, allergies, and past medical [...] OD switch 10/04/22 - start TAE 12/27/22 - IVV OD start 05/09/23 - 09/16/23 start TAE Retinal Imaging (All images were reviewed by Sin Castorena MD): OCT of the right eye - central macular CNV/SHRM, (+) SRF , (-) IRF; stable fluctuates OCT of the left eye - ERM, rpe mottling, rare drusen, (-) IRF/SRF; stable Optos IVFA 03/2022 - normal fill, late macular leakage OD, otherwise stable Impression/Plan: #) Wet AMD, Active CNV, OD - IVV OD #11, 04/27/2024(Sample) at 4-6 weeks - Notices decline between 4-5 weeks, will maintain indef - Active CNV OD w/ leakage on 03/25/22 - Myopic CNV v PCV component likely - 10/04/22 - Failure to resolve with LORRAINE. Recommend switch to LATRICIA for best chance at both fluid resolution and improved vision; pt voiced understanding and consents - 12/27/22 resolved SRF trial TAE - 02/03/23 - decreased to 4 wks, recurrent - 05/09/23 - Failure to resolve with LATRICIA. 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 Callback precautions discussed Follow up in 4-5wks, LORRAINE OD #2, OCT OU, injxn only Prep: Tetracaine, Betadine, Urojet x1, Dr Castorena to do [place] Last DFE: 04/2024 Consent verified for Avastin OD; signed 04/02/2022 SAM CARTWRIGHT - acting as scribe for Sin Castorena MD All notes completed by MD prior to signing Further details of the [...] documented in this encounter Procedure Notes * Kandice Lindo COA - 06/08/2024 1:15 PM CDT Intravitreal Injection Operative Report Eye: Right Based on a combination of imaging, exam, and/or patient symptoms, decision was made to treat today.See note for details Surgeon: Sin Castorena MD Medicaton: Avastin 0.05 mL (1.25mg) Lot number: [id number], Exp 09/25/24 Anesthesia: proparacaine, lidocaine gel 5% povidone iodine after proparacaine. Lid speculum used. Injection site irrigated with [...] Upcoming Encounters Date Type Department Care Team (Late [facility] Info) Description 09/14/2024 9:00 AM CDT Appointment [place] [address] 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 1:50 PM. Confirmed correct patient, procedure, site, and patient consented. 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)- Primary Epiretinal membrane, left eye Macular puckering of retina documented in this encounter Administered Medications Inactive Administered Medications - up to 3 most recent administrations Medication Order MAR Action Action Date Dose Rate Site bevacizumab intravitreal/intraocular (AVASTIN) 1.25 MG/0.05ML injection 1.25 mg 1.25 mg, Intravitreal, Once, as needed, Starting on Fri06/08/24 at 1404, For 1 doseIndications: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
--- OUTSIDE RECORDS SUMMARY | 2024-07-09 16:10 | XMS_ITS | Encounter Summary ---
Author Organization [facility] Address [address] [address] Care Team Providers Care Senior Counsel Name Role Phone Carolynn Alvarado MD Primary Care Provider [phone] Encounter Details Date Type Department Care Team (Late Contact Info) Description 07/09/2024 4:10 PM CDT Lab Visit [address] [address] Monitoring for long-term anticoagulant use Social History Tobacco Use Types Packs/Day Years [...] Encounters Date Type Department Care Team (Late Contact Info) Description 09/14/2024 9:00 AM CDT Appointment [facility] [address] [facility] [place], [place] [phone] Sin Castorena MD [address] [place] [address] 11/30/2024 11:30 AM CDT Appointment [facility] [address] [place], [place] [address] [place] [address] [place] [phone] 02/07/2025 11:00 AM FRESCO ARTIST Appointment [facility] [address] [place] [address] Reagan Campbell MD [address] [place], [place] [phone] documented as of this encounter Procedures Procedure Name Priority Date/Time Associated Diagnosis Comments INR/PROTIME Routine 07/09/2024 4:03 PM CDT Monitoring for long-term anticoagulant use documented in this encounter Results * (ABNORMAL) INR/Protime (07/09/2024 4:03 PM CDT) [facility] Protime 28.2(H) 11.8 - 14.6 Seconds 07/09/2024 4:22 PM CDT [facility] INR 2.7(H) 0.9 - 1.1 07/09/2024 4:22 PM CDT [facility] Blood Venipuncture / Unknown 07/09/2024 4:03 PM CDT 07/09/2024 4:03 PM CDT Narrative [facility] - 07/09/2024 4:22 PM CDT If you take an anticoagulant medicine called warfarin, your doctor or clinician may establish a normal range for you that is different from the baseline range shown. 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
--- OUTSIDE RECORDS SUMMARY | 2024-07-15 13:00 | XMS_ITS | Encounter Summary ---
Author Organization [email or web address] Address [address] [place] [id number] Care Team Providers Care Ag Equipment Field Service Technician Name Role Phone Carolynn Alvarado MD Primary Care Provider Reason for Visit * Reason Comments Injection Encounter Details Date Type Department Care Team (Latest Contact Info) Description 07/15/2024 1:00 PM CDT Office Visit [facility] [address] [facility]. 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 You may see [...] Eye discharge (other than tears/bloody tears) Call [phone] with any problems. documented in this encounter Progress Notes * Sin Castorena MD - 07/15/2024 1:00 PM CDT The medications, allergies, and past [...] macular CNV/SHRM, (+) SRF , (-) IRF; stable, fluctuates OCT of the left eye - [...] 4-6 weeks indefinitely - Plan - LORRAINE OS #2, 07/15/24 - f/u 4-5 weeks, rpt LORRAINE OD [...] discussed Follow up in 4-5wks, LORRAINE OD #3, OCT OU, injxn only Prep: Tetracaine, Betadine, Urojet x1, Dr Kell to do [place] Last DFE: 04/2024 Consent verified for Avastin OD; signed 04/02/2022 PN, COA - acting as scribe for Sin [...] documented in this encounter Procedure Notes * XimenaLaura - 07/15/2024 1:00 PM CDT Intravitreal Injection Operative Report Eye: Right Based on a combination of imaging, exam, and/or patient symptoms, decision was made to treat today.See note for details Surgeon: Sin Castorena MD Medicaton: Avastin 0.05 mL (1.25mg) Lot number: [id number], Exp 10/14/2024 Anesthesia: proparacaine, lidocaine gel 5% povidone iodine [...] Care Team (Late st Contact Info) Description 09/14/2024 9:00 AM CDT Appointment [facility] [address] [facility] 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 1:26 PM. Confirmed correct patient, procedure, site, and patient consented. 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 Posterior vitreous detachment of both eyes Vitreous degeneration documented in this encounter Administered Medications Inactive Administered Medications - up to 3 most recent administrations Medication Order MAR Action Action Date Dose Rate Site bevacizumab intravitreal/intraocular (AVASTIN) 1.25 MG/0.05ML injection 1.25 mg 1.25 mg, Intravitreal, Once, as needed, Starting on Khloe 07/15/24 at 1331, For 1 doseIndications: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
--- OUTSIDE RECORDS SUMMARY | 2024-07-31 12:00 | XMS_ITS | Encounter Summary ---
Author Organization [facility] Address [address] [address] Care Team Providers Care Window Installation Subcontractor Name Role Phone Carolynn Alvarado MD Primary Care Provider [phone] Encounter Details Date Type Department Care Team (Late Contact Info) Description 07/31/2024 12:00 PM CDT Lab Visit [address] [address] Monitoring for long-term anticoagulant use [...] Info) Description 09/14/2024 9:00 AM CDT Appointment [facility] [address] [facility] [place], [place] [address] Sin Castorena MD [address] [place] [address] 11/30/2024 11:30 AM CDT Appointment [facility] [address] [place] [address] [place] [address] [place] [address] 02/07/2025 11:00 AM EVENT MANAGER Appointment [facility] [address] [place] [phone] Reagan Campbell MD [facility] [place] [address] documented as of this encounter Visit Diagnoses Diagnosis Monitoring for long-term anticoagulant use Encounter for long-term (current) use of anticoagulants documented in this encounter Additional Health Concerns Infection Onset Date Last Indicated Resolved Time 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
--- OUTSIDE RECORDS SUMMARY | 2024-08-04 10:00 | XMS_ITS | Encounter Summary ---
[facility] Organization [facility] Address [address], [place] [address] Care Team Providers Care Emergency Communications Operator Name Role Phone Carolynn Alvarado MD Primary Care Provider [phone] Reason for Visit * Reason Comments Injection * Procedure/Equipment (Routine) - Authorized Specialty Diagnoses / Procedures Referred By Contac t Referred To Contact Diagnoses Osteoporosis with current pathological fracture, unspecified osteoporosis type, sequela Age-related osteoporosis without current pathological fracture (HRC) Reagan Campbell MD [address] [place] [address] Phone: tel: fax: Referral ID Status Reason Start Date Expiration Date V isits Requested Visits Authorized [id number] Authorized 06/30/2024 09/29/2025 2 2 Encounter Details Date Type Department Care Team (Latest Contact Info) Description 08/04/2024 10:00 AM CDT Nursing Visit [facility] [address] [place] [address] Nurse, [facility] Osteoporosis with current pathological [...] encounter Progress Notes * Matt Mtz - 08/04/2024 10:00 AM CDT Prolia Injection O: Per Dr. [...] Info) Description 09/14/2024 9:00 AM CDT Appointment [place] [address] [facility] 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 Appointment [facility] [address] [place] [phone] Reagan Campbell MD [address] [place] [address] Scheduled Referrals Name Type Priority Associated Diagnoses Orde r Schedule Injection Scheduling Referral Routine Osteoporosis with current pathological fracture, unspecified osteoporosis type, sequela Age-related osteoporosis without current pathological fracture (HRC) Ordered: 06/30/2024 documented as of this encounter Visit Diagnoses Diagnosis Osteoporosis with current pathological fracture, unspecified osteoporosis type, sequela- Primary Age-related osteoporosis without current pathological fracture (HRC) Senile osteoporosis documented in this encounter Administered Medications Active Administered Medications - up to 3 most recent administrations Medication Order MAR Action Action Date Dose Rate Site denosumab (PROLIA) injection 60 mg 60 mg, Subcutaneous, EVERY 6 MONTHS, First dose on Fri06/30/24 at 1445, Last dose on Fri12/29/24 at 1445, For 2 doses, Inject in upper arm, upper thigh, or abdomen Prior to administration allow denosumab to reach room temperatureIndications:Osteopor osis with current pathological fracture, unspecified osteoporosis type, sequela,Age-related osteoporosis without current pathological fracture (HRC) Given 08/04/2024 10:20 AM CDT 60 mg Left Arm documented in this encounter Additional Health Concerns Infection Onset Date Last Indicated Resolved Time 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 (+) 11/07/2015 11/07/2015 documented as of this encounter Care Teams Emergency Communications Operator Relationship Specialty [place] [address] [place] [address] PCP - General Internal Medicine 11/09/15 documented as of this encounter
--- OUTSIDE RECORDS SUMMARY | 2024-08-04 11:20 | XMS_ITS | Encounter Summary ---
Author Organization [facility] Address [address] [address] Care Team Providers Care Yarding And Folding Machine Operator Name Role Phone Carolynn Alvarado MD Primary Care Provider [phone] Encounter Details Date Type Department Care Team (Late Contact Info) Description 08/04/2024 11:20 AM CDT Lab Visit [facility] [address] [place] [address] Monitoring for long-term anticoagulant use Social History [...] Info) Description 09/14/2024 9:00 AM CDT Appointment [facility] [address] [facility]. [place], [place] [address] Sin Castorena MD [address] [place] [address] 11/30/2024 11:30 AM CDT Appointment [facility] [address] [place], [place] [address] [place] [address] [place] [id number] 02/07/2025 11:00 AM QUARANTINE INSPECTOR Appointment [facility] [address] [place] [address] Reagan Campbell MD [facility] [place] [address] documented as of this encounter Procedures Procedure Name Priority Date/Time Associated Diagnosis Comments INR/PROTIME Routine 08/04/2024 10:28 AM CDT Monitoring for long-term anticoagulant use documented in this encounter Results * (ABNORMAL) INR/Protime (08/04/2024 10:28 AM CDT) Pathologist [facility] Protime 21.0(H) 11.8 - 14.6 Seconds 08/04/2024 11:00 AM CDT [facility] INR 1.8(H) 0.9 - 1.1 08/04/2024 11:00 AM T [facility] Blood Venipuncture / Unknown 08/04/2024 10:28 AM CDT 08/04/2024 10:44 AM CDT Narrative [facility] - 08/04/2024 11:00 AM CDT If you take an anticoagulant medicine called warfarin, your doctor or clinician may establish a normal range for you that is different from the baseline range shown. us Carolynn Alvarado MD LAB_1 Final Result [facility] [address] [place] [address], [facility] documented in this encounter Visit Diagnoses Diagnosis Monitoring for long-term anticoagulant use Encounter for long-term (current) use of anticoagulants documented in this encounter Additional Health Concerns Infection Onset Date Last Indicated Resolved Time MRSA Comment:06/24/14 nares (+) 11/07/2015 11/07/2015 documented as of this encounter Care Teams Yarding And Folding Machine Operator Relationship Specialty [place] [address] [place] [address] PCP - General Internal Medicine 11/09/15 documented as of this encounter
--- OUTSIDE RECORDS SUMMARY | 2024-08-13 13:00 | XMS_ITS | Encounter Summary ---
Author Organization [facility] Address [address] [address] Care Team Providers Care Heel Turner Name Role Phone Carolynn Alvarado MD Primary Care Provider [phone] Reason for Visit * Reason Comments Injection Encounter Details Date Type Department Care Team (Latest Contact Info) Description 08/13/2024 1:00 PM CDT Office Visit [facility] [address] [facility]. [place], [place] [address] Sin Castorena MD [address] [place], [place] [id number] Exudative age-related macular degeneration of right eye [...] this encounter Patient Instructions * Patient Instructions* Miesha Yanez COA - 08/13/2024 1:00 PM CDT Control your blood pressure, [...] to keep the eye closed or use [id number] artificial tears for comfort. You may see [...] Eye discharge (other than tears/bloody tears) Call [phone] with any problems. documented in this encounter Progress Notes * Sin Castorena MD - 08/13/2024 1:00 PM CDT The medications, allergies, and [...] weeks indefinitely - Plan - LORRAINE OD #3, 08/13/24 - f/u 4-5 weeks, rpt LORRAINE OD [...] discussed Follow up in 4-5wks, LORRAINE OD #4, OCT OU, injxn only Prep: Tetracaine, Betadine, Urojet x1, Dr Castorena to do Pleett Last DFE: 04/2024 Consent verified for Avastin OD; signed 04/02/2022 [facility] - acting as scribe for Sin Castorena [...] documented in this encounter Procedure Notes * Miesha Yanez COA - 08/13/2024 1:00 PM CDT Intravitreal Injection Operative Report Eye: Right Based on a combination of imaging, exam, and/or patient symptoms, decision was made to treat today.See note for details Surgeon: Sin Castorena MD Medicaton: Avastin 0.05 mL (1.25mg) Lot number: [id number], Exp 10/29/2024 Anesthesia: proparacaine, lidocaine gel 5% povidone iodine [...] [facility] [address] [facility]. 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 1:24 PM. Confirmed correct patient, procedure, site, and patient consented. Injection: 1.25 mg bevacizumab intravitreal/intraocular 1.25 MG/0.05ML Route: Intravitreal, Site: Right Eye 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
--- OUTSIDE RECORDS SUMMARY | 2024-08-16 10:45 | XMS_ITS | Encounter Summary ---
Author Organization [facility] Address [address] [place] [id number] Care Team Providers Care Research Nurse Name Role Phone Carolynn Alvarado MD Primary Care Provider [phone] Reason for Referral * (Routine) - Open Specialty Diagnoses / Procedures Referred By Contac t Referred To Contact Diagnoses S/P lumbar fusion Lumbar spine pain Sacroiliitis (HCC) Aurelia Garcia PA-C [address] [address] Phone: tel: fax: Referral ID Status Reason Start Date Expiration Date Visits Re quested Visits Authorized [id number] Open 08/16/2024 1 1 Comments Location/Facility: [facility] Order faxed 08/16, please call patient to schedule Frequency: Twice a week for 6 weeks Reason for Therapy: SI JOINT PAIN/ lumbar spine pain/ Hx of lumbar fusion Please fax results/reports to [facility] at [phone]. If you choose to mail reports, please send to the following address: [facility] [address] [place] [address], [address] [place] [address] Questions, call [phone] * Procedure (Routine) - Closed Specialty Diagnoses / Procedures Referred By Contac t Referred To Contact Diagnoses S/P lumbar fusion Lumbar spine pain Sacroiliitis (HCC) Aurelia Garcia PA-C [address] [facility] [address] [place] [address] Phone: tel: fax: Referral ID Status Reason Start Date Expiration Date Visits Re quested Visits Authorized [id number] Closed 08/16/2024 1 1 Comments Injection ordered: B/L SI JOINT INJECTIONS Therapeutic/Diagnostic/Both: BOTH Location (ie. Provider/Facility): [facility] Repeat injection from:12/16/23 Note: PT order sent to [facility] as well. Patient is to follow up with Aurelia Garcia PA-C 2-4 weeks after injection is completed. Please fax results/reports to [facility] at [phone]. If you choose to mail reports, please send to the following address: [facility] [address] [place] [address], [address] [place] [address] Questions call [phone] Reason for Visit * Reason Comments Follow up Low back pain Encounter Details Date Type Department Care Team (Late st Contact Info) Description 08/16/2024 10:45 AM CDT Office Visit [facility] (an affiliate of [facility]) [address] [facility] [address] [place] [address] Aurelia Garcia PA-C [address] [place] [address] [address] [place] [address] Sacroiliitis (HCC) (Primary Dx); S/P lumbar fusion; Lumbar spine pain Social History Tobacco Use Types Packs/Day Years Used Date Smoking Tobacco: Never Smokeless Tobacco: Never Alcohol Use Standard Drinks/Week Comments Never 0 (1 standard drink = 0.6 oz pur e alcohol) [facility] Utilities Answer Date Recorded In the past 12 months has e MWI, gas, oil, or water [employer] threatened to shut off services in your [...] slept in a fdc (including now)? No 04/10/2023 Comments No Sex and Gender Information Value Date Recorded Sex Assigned at Female 03/11/2023 11:10 AM ART COORDINATOR Legal Sex Female 12:50 PM ART COORDINATOR Gender Identity Female 03/11/2023 11:10 AM ART COORDINATOR Sexual Orientation Straight 03/11/2023 11 :10 AM ART COORDINATOR documented as of this encounter Last Filed Vital Signs Vital Sign Reading Time Taken Comments Blood Pressure - - Pulse - - Temperature - - Respiratory Rate - - Oxygen Saturation - - Inhaled Oxygen Concentration - - Weight 59.9 kg (132 lb) 08/16/2024 12:18 PM CDT Height 162.6 cm (5' 4) 08/16/2024 12:18 PM CDT Body Mass Index 22.66 08/16/2024 12:18 PM CDT documented in this encounter Progress Notes * Yamilet Mao LPN - 08/16/2024 10:45 AM CDT Images from the original note were not included. Michelle Franz 78F Refine SearchContact the [employer] Date of : 1945 Recent Address: [address] [place] [address] Status of States Queried: View Details View Linked Records (1) Other Resources Report Criteria First Name: Michelle Last Name: Osei : 1945 Linked Records ? Name: Michelle Franz : 1945 ID: [id number] Gender: F Address: [address] [place] [address] Report generated on 08/13/2024. Report Date Range: 08/14/2023 - 08/13/2024 PDF ReportExportState Indicators (0) Details RX Summary Summary Total Prescriptions 12 Total Private Pay 0 Total Prescribers 1 Total Pharmacies 1 Narcotics (excluding Buprenorphine) Current MME/day 0.00 30 Day Avg MME/day 0.00 Current Qty 0 Buprenorphine Current mg/day 0.00 30 Day Avg mg/day 0.00 Current Qty 0 UNINTENTIONAL OVERDOSE RISK SCORE MODEL Caution/Important Reminder: Information for Healthcare Professionals BELOW [id number] NARX SCORES NARCOTICS 110 ACTIVE RX 0 SEDATIVES 280 ACTIVE RX 0 STIMULANTS 000 ACTIVE RX 0 MCQUEEN CONTRIBUTING FACTORS TO OVERDOSE RISK SCORE MODEL History of MOUD use (excluding Buprenorphine dispensations for pain management*) No Number of high-risk dispensations in most recent year 0 Gender most frequently reported by pharmacies is male No Age most frequently reported by pharmacies 78 Number of pharmacies where narcotics/sedatives were filled in most recent year 1 Benzo - Narcotics overlap 0 Days Prescriptions Total: 12 Private Pay: 0 Showing 1-12 of 12 Items View 1 of 1 Filled Written Sold ID Drug QTY Days Prescriber RX # Dispenser Refill Daily Dose* Pymt Type TECHNOLOGY APPLICATIONS ENGINEER 07/13/2024 02/17/2024 07/15/2024 1 Lorazepam 0.5 Mg Tablet 60.00 30 Ye Chris [id number] [facility] (7617) 2/5 1.00 LME [place] 06/11/2024 02/17/2024 06/12/2024 1 Lorazepam 0.5 Mg Tablet 60.00 30 Ye Chris [id number] [facility] (2903) 1 1.00 LME [place] 05/16/2024 02/17/2024 05/16/2024 1 Lorazepam 0.5 Mg Tablet 60.00 30 Ye Chris [id number] [facility] (2903) 0/5 1.00 LME [place] 04/14/2024 01/17/2024 04/16/2024 1 Lorazepam 0.5 Mg Tablet 60.00 30 Ye Chris [id number] [facility] (2903) 0/0 1.00 LME Medicare [place] 03/16/2024 01/17/2024 03/16/2024 1 Lorazepam 0.5 Mg Tablet 60.00 30 Ye Chris [id number] [facility] (2903) 0/1 1.00 LME [place] 02/15/2024 01/17/2024 02/16/2024 1 Lorazepam 0.5 Mg Tablet 60.00 30 Ye Chris [id number] [facility] (2903) 1 1.00 LME [place] 01/17/2024 01/17/2024 01/17/2024 1 Lorazepam 0.5 Mg Tablet 60.00 30 Ye Chris [id number] [facility] (2903) 0 1.00 L[place] 12/17/2023 07/17/2023 12/17/2023 1 Lorazepam 0.5 Mg Tablet 60.00 30 Ye Chris [id number] [facility] (2903) 5 1.00 LME [place] 11/15/2023 07/17/2023 11/18/2023 1 Lorazepam 0.5 Mg Tablet 60.00 30 Ye Chris [id number] [facility] (2903) 4 1.00 L[place] 10/17/2023 07/17/2023 10/19/2023 1 Lorazepam 0.5 Mg Tablet 60.00 30 Ye Chris [id number] [facility] (2903) 3/ 1.00 LME [place] 09/17/2023 07/17/2023 09/19/2023 1 Lorazepam 0.5 Mg Tablet 60.00 30 Ye Chris [id number] [facility] (2903) 2/ 1.00 LME [place] 08/18/2023 07/17/2023 08/20/2023 1 Lorazepam 0.5 Mg Tablet 60.00 30 Ye Chris [id number] [facility] (0009) 03/21 1.00 LME Medicare [place] Providers Total: 1 Showing 1 Item View 1 of 1 Name Address [facility] Zipcode Phone Christel Roca-Chin [address] [place] [address] Showing 1 Item View 1 of 1 Pharmacies Total: 1 Showing 1 Item View 1 of 1 Name Address [facility] Zipcode Phone Himanshu Connors. ([phone]) [address] [place] [address] As a proxy delegate, I have queried the [place] and/or [place] Prescription Monitoring Program for this patient and provided the clinician with the above information for the preceding 12 months. Yamilet Mao LPN 08/13/2024 2:50 PM * Aurelia Garcia PA-C - 08/16/2024 10:45 AM CDT DATE OF SERVICE:08/16/2024 CHIEF COMPLAINT: Follow up (Low back pain) HPI: History of Present Illness Michelle Franz is a 78 year old female with a history of spinal surgery who presents with worsening back pain and functional limitations. Patient is now approximately 1.5 years s/p L1-5 PF (DOS: 04/01/23) completed by Dr. Isai Foss. She experiences significant diffuse back pain that worsens with activity and improves with rest, occasionally radiating to the hip area. The pain interferes with her activities of daily living and isexacerbated by overexertion. She experiences intermittent pain with periods of improvement followedby exacerbations. She has leg weakness, particularly when climbing into a moving truck, requiring assistance, left greater than right. No falls have occurred, but the weakness is bothersome. Occasional 'zinging' or shocks are attributed to nerve issues post- surgery. She has had some ongoing weakness since surgery, but this has remained unchanged. She manages symptoms with rest, activity modification, and extra-strength Tylenol. Previous injections did not provide relief, and she has not had recent injections. She cannot take anti-inflammatorymedications due to dietary restrictions but finds heat application helpful. She is unable to engagein activities such as shopping due to her symptoms. ROS: I have reviewed the last complete 10 point Review of Systems with the patient and any changes in findings are listed as part of today's visit. All other systems are negative. MEDICATIONS Current Outpatient Medications Medication Sig Dispense Refill acetaminophen (TYLENOL) 500 mg oral tablet Take 1,000 mg by mouth every 6 (six) hours as needed. amiodarone (CORDARONE) 200 mg oral tablet Take 100 mg by mouth Daily. amLODIPine (NORVASC) 10 mg oral tablet Take 10 mg by mouth Daily. calcium carbonate (TUMS) 200 mg calcium (500 mg) oral chew tab Chew 1 tablet (500 mg) twice a day with breakfast and dinner. 180 tablet 3 Cholecalciferol, Vitamin D3, 50 mcg (2,000 unit) oral capsule Take 2,000 Units by mouth Daily. desipramine (NORPRAMIN) 25 mg oral tablet Take 1 tablet (25 mg) by mouth Daily. docusate sodium (COLACE) 100 mg oral capsule Take 1 capsule (100 mg) by mouth twice a day. 30 capsule 0 DULoxetine (CYMBALTA) 20 mg oral delayed release capsule 1 capsule (20 mg) once daily. DULoxetine (CYMBALTA) 60 mg oral delayed release capsule Take 1 capsule (60 mg) by mouth once daily. ergocalciferol (VITAMIN D2) 1,250 mcg (50,000 unit) oral capsule Take 1 capsule (50,000 Units) by mouth every 7 (seven) days. 12 capsule 3 famotidine (PEPCID) 20 mg oral tablet Take 1 tablet (20 mg) by mouth once daily. fludrocortisone (FLORINEF) 0.1 mg oral tablet Take 1 tablet (0.1 mg) by mouth once daily. hydrOXYzine pamoate (VISTARIL) 25 mg oral capsule Take 1 capsule (25 mg) by mouth every 6 (six) hours as needed. 12 capsule 0 LORazepam (ATIVAN) 0.5 mg oral tablet Take 2 tablets (1 mg) by mouth at bedtime as needed. 4 tablet0 medical supply, miscellaneous (ELECTRICAL BONE GROWTH STIMULATOR) Company: [employer] - for home use. 1each methocarbamoL (ROBAXIN) 500 mg oral tablet Take 1 tablet (500 mg) by mouth every 6 (six) hours as needed. midodrine (PROAMITINE) 5 mg oral tablet Take 1 tablet (5 mg) by mouth three times a day as needed (SBP<100). midodrine (PROAMITINE) 5 mg oral tablet Take 1 tablet (5 mg) by mouth every morning. omega-3 acid ethyl esters (LOVAZA) 1 gram oral capsule Take 1 g by mouth twice a day. oxyCODONE, immediate release, (ROXICODONE) 5 mg oral tablet Take 1 tablet (5 mg) by mouth every 6 (six) hours as needed. 8 tablet 0 oxyCODONE-acetaminophen (PERCOCET) 5-325 mg oral tablet TAKE 1 TABLET BY MOUTH EVERY 4 HOURS NEEDED FOR PAIN . DO NOT EXCEED 8 PER 24 HOURS polyethylene glycol (MIRALAX) 17 gram oral powder Take 17 g by mouth twice a day. Mix each dose in 4-8 ounces of liquid as directed. 510 g 0 pregabalin (LYRICA) 25 mg oral capsule Take 1 capsule (25 mg) by mouth twice a day. 6 capsule 0 senna-docusate (SENNA-S) 8.6-50 mg oral tablet Take 1 tablet by mouth twice a day as needed. 60 tablet 0 warfarin (COUMADIN) 2.5 mg oral tablet INR 2-3 No current facility-administered medications for this visit. ALLERGIES Lisinopril and Tizanidine Past Medical History: Diagnosis Date Chronic pain low back pain Heartburn HTN (hypertension) MRSA (methicillin resistant Staphylococcus aureus) 2014 12 yrs ago; jimena (2014 w/outside facility) CLEARED by Infection Prevention 04/01/23 Past Surgical History: Procedure Laterality Date HX CHOLECYSTECTOMY HX HYSTERECTOMY ORTHOPEDICS neck fusion x3 Social History Tobacco Use Smoking status: Never Smokeless tobacco: Never Substance Use Topics Alcohol use: Never No family history on file. Physical Exam GENERAL: Patient in no acute distress. Alert and oriented x3. Appears stated age. HENT: Head normocephalic and atraumatic, hearing grossly intact bilaterally. EYES: Grossly EOMI, clear sclera. SKIN: Shows good hydration and turgor. NECK: Supple, trachea is midline. RESPIRATORY: Breathing unlabored. GAIT: Patient walks with a well-balanced gait. NEUROLOGICAL: Normal strength throughout major motor groups in bilateral lower extremities, no deficits. Normal sensation to light touch in bilateral lower extremities. Cranial nerves grossly intact. VASCULAR: Extremities are warm bilaterally. PSYCHIATRIC: Patient is cooperative, polite, communicates well, makes eye contact, and expresses appropriate concern throughout history. Normal affect. MUSCULOSKELETAL: Positive KRYSTINA, right>left. Tenderness bilateral SI joints, right greater than left. Positive distraction and compression testing bilateral SI joints. RESULTS -XR lumbar 4v-Rayus Impression: Unchanged L1-5 posterior fusion. Left L1 pedicle screw breaches superior endplate without hardware fracture or gross evidence of loosening. 6 degrees of motion between L1 superior endplate and L5 inferior endplate comparing flexion and extension T12-L1 focal kyphosis and levoscoliosis with fixed mild grade 1 spondylolisthesis No vertebral collapse or destructive osseous lesion. Assessment & Plan Chronic low back pain Sacroiliitis Chronic low back pain worsens post-activity, localized to the lower back with occasional radiation to the hip, interfering with daily activities. Imaging shows no significant change, and the fusion site is well-healed. Initiate physical therapy to strengthen muscles around the affected area. Consider SI joint injections at [facility] for pain management. Use heat therapy as needed for pain relief. Ifcontinues to have issues with back and SI joints, would get updated imaging for further evaluation. Aurelia Garcia PA-C 08/16/2024 10:36 AM Physician Nurse Anesthetist Spine Surgery [facility] [phone] documented in this encounter Miscellaneous Notes * Addendum Note - Aaron Reid CMA - 08/16/2024 10:45 AM CDTAddended by: AARON REID on: 08/16/2024 12:24 PM Modules accepted: Orders * Addendum Note - Aaron Reid CMA - 08/16/2024 10:45 AM CDTAddended by: AARON REID on: 08/16/2024 12:47 PM Modules accepted: Orders documented in this encounter Plan of Treatment Scheduled Referrals Name Type Priority Associated Diagnoses Orde r Schedule REFERRAL MISC/OTHER Referral Routine S/P lumbar fusion Lumbar spine pain Sacroiliitis (HCC) Ordered: 08/16/2024 PHYSICAL THERAPY TREATMENT(S) Referral Routine S/P lumbar fusion Lumbar spine pain Sacroiliitis (HCC) Ordered: 08/16/2024 documented as of this encounter Visit Diagnoses Diagnosis Sacroiliitis (HCC)- Primary Sacroiliitis, not elsewhere classified S/P lumbar fusion Arthrodesis status Lumbar spine pain Lumbago documented in this encounter Care Teams Research Nurse Relationship Specialty [place] [id number] [address] [address] PCP - General Internal Medicine 04/02/23 documented as of this encounter
--- OUTSIDE RECORDS SUMMARY | 2024-08-17 22:06 | XMS_ITS | Encounter Summary ---
Author Organization [facility] Address [address] [place] [address]. [place] [address] Care Team Providers Care Extrusion Process Operator Name Role Phone Carolynn Alvarado Primary Care Provider [phone] Encounter Details Date Type Department Care Team (Late st Contact Info) Description 08/17/2024 10:06 PM CDT - 08/17/2024 11:14 PM CDT Emergency [facility] Emergency Dept [address] [place] [address] Discharge Disposition: Left Without Being Seen Social History Tobacco Use Types Packs/Day Years Used Date Smoking Tobacco: Never Smokeless Tobacco: Never Alcohol Use Standard Drinks/Week Comments No 0 (1 standard drink = 0.6 oz pur e alcohol) PHQ-2 Answer Date Recorded PHQ-2 Score 2 08/02/2022 Adolescent Education Answer Date Record ed Getting School Help Needed Not on file 12/08 Comments No Sex and Gender Information Value Date Recorded Sex Assigned at Not on file 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 Gender Identity Not on file Sexual Orientation Not on file documented as of this encounter Medications at Time of Discharge acetaminophen (TYLENOL) 500 MG tablet Take 1,000 mg by mouth every 6 hours as needed for mild pain amiodarone (PACERONE) 200 MG tablet Take 200 mg by mouth daily 04/28/2023 Calcium Carbonate 500 (200 Ca) MG WAFR Take 1 Wafer by mouth 2 times daily (with meals) desipramine (NORPRAMIN) 25 MG tablet Take 25 mg by mouth every morning DULoxetine HCl 40 MG CSDR Take 80 mg by mouth once famotidine (PEPCID) 20 MG tablet Take 20 mg by mouth daily 03/24/2019 fludrocortisone (FLORINEF) 0.1 MG tablet Take 0.1 mg by mouth daily methocarbamol (ROBAXIN) 500 MG tablet Take 500 mg by mouth every 6 hours as needed for muscle spasms midodrine (PROAMATINE) 5 MG tablet Take 5 mg by mouth every 8 hours as needed (low BP) midodrine (PROAMATINE) 5 MG tablet Take 5 mg by mouth daily order for DMEIndications:P seudoarthrosis of cervical spine, initial encounter (H),Neck pain [employer] bone growth stimulator: cervical 1 Device 11/13/2016 pregabalin (LYRICA) 25 MG capsuleIndicatio ns:Cervical stenosis of spinal canal TAKE 1 CAPSULE BY MOUTH TWICE DAILY 30 capsule 04/22/2023 senna-docusate (SENOKOT-S/PERIC OLACE) 8.6-50 MG tabletIndication s:Pseudoarthrosi s of cervical spine, subsequent encounter Take 1 tablet by mouth 2 times daily as needed for constipation 30 tablet 1 10/12/2020 documented as of this encounter Plan of Treatment Not on file documented as of this encounter Visit Diagnoses Not on filedocumented in this encounter Care Teams Extrusion Process Operator Relationship Specialty Start Date End Date Carolynn Alvarado PCP - General 05/30/16 documented as of this encounter
[2024-08-17 23:05] VITALS: BP 191/106; PULSE 75; RESP 18; TEMP 36.6; O2SAT 97; BMI 24.2
--- NOTE | 2024-08-17 23:29 | CRLHL7_ITS ---
For Patients: As a result of the Century Cures Act, medical imaging exams and procedure reports are released immediately into your electronic medical record. You may view this report before your referring provider. If you have questions, please contact your health care provider. INDICATION: fall, neck pain, on coumadin, status post spinal fusion. TECHNIQUE: CT cervical spine without contrast. COMPARISON: None. FINDINGS: Vertebrae: Postsurgical changes of C3-6 ACDF and C5-6 posterior interbody fusion. Hardware appears intact without evident complication. Acute nondisplaced fracture of the C2 dens at its base. No other evident acute fracture. Alignment is within normal limits. Cervical dextroscoliosis. Discs and facet joints: There are diffuse degenerative changes in the chemehuevi disc spaces and facet joints. Extraspinal findings: Paraspinous soft tissues are unremarkable. IMPRESSION: Acute nondisplaced fracture of the C2 dens at its base (type 2). Please note that all CT scans at this facility use dose modulation, iterative reconstruction, and/or weight-based dosing when appropriate to reduce radiation dose to as low as reasonably achievable. Dictated by Santos Jones MD @ 08/18/2024 12:40:08 AM (Electronically Signed)
--- NOTE | 2024-08-17 23:29 | CRLHL7_ITS ---
For Patients: As a result of the Century Cures Act, medical imaging exams and procedure reports are released immediately into your electronic medical record. You may view this report before your referring provider. If you have questions, please contact your health care provider. INDICATION: fall, on coumadin TECHNIQUE: Non-contrast CT of the head is submitted. COMPARISON: None. FINDINGS: [id number] diffuse parenchymal volume loss with commensurate ex vacuo dilatation of the ventricles and sulci. There are nonspecific low attenuation white matter changes consistent with chronic microvascular disease. No sign of mass, hemorrhage, or midline shift. The visualized paranasal sinuses and mastoid air cells are essentially clear. The visualized orbits are grossly unremarkable. No skull fractures. Please see the separately dictated same day CT cervical spine for characterization of the C2 fracture. IMPRESSION: No acute intracranial findings. Please note that all CT scans at this facility use dose modulation, iterative reconstruction, and/or weight-based dosing when appropriate to reduce radiation dose to as low as reasonably achievable. Dictated by Santos Jones MD @ 08/18/2024 12:34:34 AM (Electronically Signed)
--- NOTE | 2024-08-17 23:34 | ED_ITS ---
HPI - Fall General Time Seen by Provider: 23:34 <Viri Bills MD - Last Filed: 08/19/24 08:39> Date Seen: 08/17/24 <Viri Bills MD - Last Filed: 08/19/24 08:39> Chief Complaint: Fall/Minor Trauma <Viri Bills MD - Last Filed: 08/19/24 08:39> Stated Complaint: Fell down hill, hurt neck <Viri Bills MD - Last Filed: 08/19/24 08:39> Time Seen by Provider: 08/17/24 23:34 <Viri Bills MD - Last Filed: 08/19/24 08:39> Source: patient and RN notes reviewed <Viri Bills MD - Last Filed: 08/19/24 08:39> Mode of arrival: ambulatory <Viri Bills MD - Last Filed: 08/19/24 08:39> Limitations: no limitations <Viri Bills MD - Last Filed: 08/19/24 08:39> History of Present Illness HPI Narrative: This 78-year-old female is ambulatory into the ED accompanied by relative with complaint nose pain and neck pain after a fall. She was outside with her dog, the dog took off in she went to go down the hill after the dog. She ended up falling face 1st hitting her nose and sliding down the hill. Her nose hurts but never did bleed. There is no loss of consciousness. No visual changes currently. She has had multiple neck surgeries for spinal stenosis. She states she had the 1st 1 in it did not heal, then she had a fracture after the 2nd surgery with a fall or something of that nature. One of the screws is reportedly broke. She denies any numbness tingling or weakness in her extremities, no pain going into her arms. She does not hurt through her chest, shoulders, arms, abdomen, back below her neck or her lower extremities. She is anticoagulated with Coumadin for paroxysmal atrial fibrillation. She is not always in atrial fibrillation, does not feel like she is in it now. She states she usually goes into atrial fibrillation in states of stress. <Viri Bills MD - Last Filed: 08/19/24 08:39> MD complaint: fall <Viri Bills MD - Last Filed: 08/19/24 08:39> Related Data Home Medications: Home Medications ?Medication ?Instructions ?Recorded ?Confirmed amlodipine 10 mg tablet 10 mg PO 04/05/22 03/04/24 atenolol 25 mg tablet 25 mg PO Q24H 04/05/2203/04 desipramine 25 mg tablet 25 mg PO 04/05/22 03/04/24 duloxetine 20 mg capsule,delayed 80 mg PO 04/05/22 release duloxetine 60 mg capsule,delayed ea PO 04/05/22 release famotidine 20 mg tablet 20 mg PO 04/05/22 03/04/24 lorazepam 0.5 mg tablet 0.5 mg PO 04/05/22 03/04/24 methocarbamol 500 mg tablet 500 mg PO 04/05/22 4 pregabalin 25 mg capsule (Lyrica) 25 mg PO DAILY 02/2303/04/24 warfarin 1 mg tablet mg PO 03/03/24 03/04/24 Previous Rx's ?Medication ?Instructions ?Recorded methylprednisolone 4 mg tablets in See Rx Instructions PO PER PKG DIR 06/25/22 a dose pack (Medrol (Oscar)) #21 ea cephalexin 250 mg capsule 250 mg PO BID #10 caps 03/03 <Viri Bills MD - Last Filed: 08/19/24 08:39> Allergies/Adverse Reactions: Allergies Allergy/AdvReac Type Severity Reaction Status Date / Time lisinopril Allergy Unknown Headache Verified 03/04/24 12:01 tizanidine AdvReac Verified 03/04/24 12:01 <Viri Bills MD - Last Filed: 08/19/24 08:39> Review of Systems Status of ROS: Reports: 6 or more systems reviewed and unremarkable except as noted in History and below <Viri Bills MD - Last Filed: 08/19/24 08:39> [facility] Medical History: Medical History Primary hypertension ?I10 - Essential (primary) hypertension (ICD-10) Generalized anxiety disorder ?F41.1 - Generalized anxiety disorder (ICD-10) GERD (gastroesophageal reflux disease) ?K21.9 - Gastro-esophageal reflux disease without esophagitis (ICD-10) Atrial fibrillation ?I48.91 - Unspecified atrial fibrillation (ICD-10) <Viri Bills MD - Last Filed: 08/19/24 08:39> Social History: Social History Smoking Status: Never smoker Do you use any of these nicotine containing products: None Second hand tobacco smoke exposure: No How often do you have a drink containing alcohol: never How often do you have six or more drinks on one occasion: Never AUDIT-C Alcohol total score: 0 Non-prescribed substance use: denies use service: No <Viri Bills MD - Last Filed: 08/19/24 08:39> Exam Const: Vital Signs, click to edit/add: Vital Signs - 24 hr 08/17/24 23:05 Temperature 97.9 F Pulse Rate [Right Pulse Oximeter] 75 Respiratory Rate 18 Blood Pressure [Ri ght Upper Arm] 191/106 H Pulse Oximetry 97 Oxygen Delivery Me thod Room Air This 78-year-old female seen in exam room 2. She has cervical spine collar on which was placed by nursing staff on arrival after triage. She is alert, interactive, no apparent distress. Breathing easily on room air, speech is normal. Her nose has some deformity to it which she states it is always been cricket, believes she broke it before. It is not significantly tender, no palpable crepitus. There is no evidence of any bleeding. She is nontender over her jaw, face is atraumatic. Pupils equal round, sclera clear, conjugate gaze. Note no traumatic changes of her face or nose that are acute. No definite midline tenderness through this seen the caller is palpable. Upper extremities strength is normal and symmetric, normal sensation. She is not palpably tender over the clavicles shoulders or through her arms. Chest wall is nontender. CV regular rate and rhythm, no murmur, normal S1-S2. Lungs are clear, good air entry, no wheezing or crackles. Abdomen is soft, nontender, nondistended, no organomegaly, no rebound or guarding. Pelvis palpates intact. She was ambulatory into the ED of her own accord. Legs are exposed, no acute traumatic change, no painful areas. Lower extremities have normal motion and function, neurovascular intact. <Viri Bills MD - Last Filed: 08/19/24 08:39> Vital Signs, click to edit/add: Vital Signs - 24 hr 08/17/24 23:05 Temperature 97.9 F Pulse Rate [Right Pulse Oximeter] 75 Respiratory Rate 18 Blood Pressure [Ri ght Upper Arm] 191/106 H Pulse Oximetry 97 Oxygen Delivery Me thod Room Air <Meron Andrade MD - Last Filed: 08/18/24 01:14> Documenting provider has reviewed patient's vital signs: yes <Viri Bills MD - Last Filed: 08/19/24 08:39> Course Course ED Course: Nursing staff had ordered a head CT and cervical spine CT based on patient's mechanism. I will also add in facial bones noncontrast. Doubt that there has been any significant nasal injury as she had no bleeding. Will certainly defined is further by CT imaging. We will see if the radiologist's can visualize enough with CT imaging. This may be a case where we might end up needing some plain films as well to. Will await radiologist's input once ce rvical spine CT reading is done. <Viri Bills MD - Last Filed: 08/19/24 08:39> Nursing staff had ordered a head CT and cervical spine CT based on patient's mechanism. I will also add in facial bones noncontrast. Doubt that there has been any significant nasal injury as she had no bleeding. Will certainly defined is further by CT imaging. We will see if the radiologist's can visualize enough with CT imaging. This may be a case where we might end up needing some plain films as well to. Will await radiologist's input once cervical spine CT reading is done. Patient signed out to me by Dr. Goodman to follow-up on CT scans. I reviewed her head CT which to me appeared negative for any acute traumatic findings. Radiology read was negative as well. Cervical spine CT shows a nondisplaced fracture of C2 at the base of the dens. Facial bone CT by my review looks negative for fracture and is read by Radiology is negative. Reviewed these findings with her, and discussed with neurosurgery on-call at [facility] by phone. They recommend cervical collar and 6 week follow-up in clinic. They will call her to arrange. We placed her in a [place] collar here, discussed with her that if she finds this to be not comfortable, she can certainly asked neurosurgery clinic to come in and switch to a more comfortable collar. For pain, she feels comfortable using Tylenol, with the collar on her neck does not hurt. Reviewed reasons to return such as severe pain, neurologic changes. <Meron Andrade MD - Last Filed: 08/18/24 01:14> Vital Signs Vital signs: Initial Vital Signs Temperature 97.9 F 08/17/24 23:05 Temperature Source Temporal Artery Scan 08/17/24 23:05 Pulse Rate 75 08/17/24 23:05 Respiratory Rate 18 08/17/24 23:05 Blood Pressure 191/106 H 08/17/24 23:05 Blood Pressure Mean 134 H 08/17/24 23:05 Blood Pressure Position Sitting 08/17/24 23:05 Pulse Oximetry 97 08/17/24 23:05 Oxygen Delivery Method Room Air 08/17/24 23:05 Vital Signs Temperature 97.9 F 08/17/24 23:05 Pulse Rate 75 08/17/24 23:05 Respiratory Rate 18 08/17/24 23:05 Blood Pressure 191/106 H 08/17/24 23:05 Pulse Oximetry 97 08/17/24 23:05 Oxygen Delivery Method Room Air 08/17/24 23:05 Temperature 97.9 F 08/17/24 23:05 Pulse Rate 75 08/18/24 01:25 Respiratory Rate 18 08/18/24 01:25 Blood Pressure 173/95 H 08/18/24 01:25 Pulse Oximetry 97 08/18/24 01:25 Oxygen Delivery Method Room Air 08/17/24 23:05 <Viri Bills MD - Last Filed: 08/19/24 08:39> Initial Vital Signs Temperature 97.9 F 08/17/24 23:05 Temperature Source Temporal Artery Scan 08/17/24 23:05 Pulse Rate 75 08/17/24 23:05 Respiratory Rate 18 08/17/24 23:05 Blood Pressure 191/106 H 08/17/24 23:05 Blood Pressure Mean 134 H 08/17/24 23:05 Blood Pressure Position Sitting 08/17/24 23:05 Pulse Oximetry 97 08/17/24 23:05 Oxygen Delivery Method Room Air 08/17/24 23:05 Vital Signs Temperature 97.9 F 08/17/24 23:05 Pulse Rate 75 08/17/24 23:05 Respiratory Rate 18 08/17/24 23:05 Blood Pressure 191/106 H 08/17/24 23:05 Pulse Oximetry 97 08/17/24 23:05 Oxygen Delivery Method Room Air 08/17/24 23:05 Temperature 97.9 F 08/17/24 23:05 Pulse Rate 75 08/18/24 01:25 Respiratory Rate 18 08/18/24 01:25 Blood Pressure 173/95 H 08/18/24 01:25 Pulse Oximetry 97 08/18/24 01:25 Oxygen Delivery Method Room Air 08/17/24 23:05 <Meron Andrade MD - Last Filed: 08/18/24 01:14> MDM - Fall Imaging Data CT scan - head: Attestation: I have reviewed the pertinent imaging results. <Meron Andrade MD - Last Filed: 08/18/24 01:14> Radiologist's impression: Patient: Michelle Franz MR#: [id number] : 1945 Acct:[id number] Loc: ED Service Date: 08/17/[address]: Ordering Physician: Viri Bills M.D. Date of Service: 08/17/24 Procedure(s): CT head/brain wo con Accession Number(s): [id number] cc: Provider,Not a Local; Viri Bills M.D.~ For Patients: As a result of the Cures Act, medical imaging exams and procedure reports are released immediately into your electronic medical record. You may view this report before your referring provider. If you have questions, please contact your health care provider. INDICATION: fall, on coumadin TECHNIQUE: Non-contrast CT of the head is submitted. COMPARISON: None. FINDINGS: Sdyc-of-zwctpbac diffuse parenchymal volume loss with commensurate ex vacuo dilatation of the ventricles and sulci. There are nonspecific low attenuation white matter changes consistent with chronic microvascular disease. No sign of mass, hemorrhage, or midline shift. The visualized paranasal sinuses and mastoid air cells are essentially clear. The visualized orbits are grossly unremarkable. No skull fractures. Please see the separately dictated same day CT cervical spine for characterization of the C2 fracture. IMPRESSION: No acute intracranial findings. Please note that all CT scans at this facility use dose modulation, iterative reconstruction, and/or weight-based dosing when appropriate to reduce radiation dose to as low as reasonably achievable. Dictated by Santos Jones MD @ 08/18/2024 12:34:34 AM <Meron Andrade MD - Last Filed: 08/18/24 01:14> CT cervical spine: Attestation: I have reviewed the pertinent imaging results. <Meron Andrade MD - Last Filed: 08/18/24 01:14> Radiologist's impression: Patient: Michelle Franz MR#: [id number] : 1945 Acct:[id number] Loc: ED Service Date: 08/17/[address]: Ordering Physician: Viri Bills M.D. Date of Service: 08/17/24 Procedure(s): CT cervical spine wo con Accession Number(s): [id number] cc: Provider,Not a Local; Viri Bills M.D.~ For Patients: As a result of the Century Cures Act, medical imaging exams and procedure reports are released immediately into your electronic medical record. You may view this report before your referring provider. If you have questions, please contact your health care provider. INDICATION: fall, neck pain, on coumadin, status post spinal fusion. TECHNIQUE: CT cervical spine without contrast. COMPARISON: None. FINDINGS: Vertebrae: Postsurgical changes of C3-6 ACDF and C5-6 posterior interbody fusion. Hardware appears intact without evident complication. Acute nondisplaced fracture of the C2 dens at its base. No other evident acute fracture. Alignment is within normal limits. Cervical dextroscoliosis. Discs and facet joints: There are diffuse degenerative changes in the [place] disc spaces and facet joints. Extraspinal findings: Paraspinous soft tissues are unremarkable. IMPRESSION: Acute nondisplaced fracture of the C2 dens at its base (type 2). <Meron Andrade MD - Last Filed: 08/18/24 01:14> CT facial bones: Attestation: I have reviewed the pertinent imaging results. <Meron Andrade MD - Last Filed: 08/18/24 01:14> Radiologist's impression: Patient: Michelle Franz MR#: [id number] : 1945 Acct:[id number] Loc: ED Service Date: 08/17/[address]: Ordering Physician: Viri Bills M.D. Date of Service: 08/17/24 Procedure(s): CT facial bones wo con Accession Number(s): [id number] cc: Provider,Not a Local; Viri Bills M.D.~ For Patients: As a result of the Cures Act, medical imaging exams and procedure reports are released immediately into your electronic medical record. You may view this report before your referring provider. If you have questions, please contact your health care provider. INDICATION: fall, facial injury. TECHNIQUE: CT maxillofacial without contrast. COMPARISON: None. FINDINGS: Facial bones: No facial fractures or bone lesions. Specifically the nasal bones, temporomandibular joints, maxilla and mandible appear intact. Orbits and globes: Unremarkable. Globes are intact. No sign of intraorbital hemorrhage or emphysema. Sinuses: Mild mucosal thickening in the right posterior ethmoid air cells. Soft tissues: Unremarkable. IMPRESSION: No evident acute facial fractures. Please note that all CT scans at this facility use dose modulation, iterative reconstruction, and/or weight-based dosing when appropriate to reduce radiation dose to as low as reasonably achievable. <Meron Andrade MD - Last Filed: 08/18/24 01:14> Discharge Plan Discharge Clinical Impression: Closed C2 fracture, Fall, Nasal pain <Viri Bills MD - Last Filed: 08/19/24 08:39> Patient Disposition: Home, Self-Care <Viri Bills MD - Last Filed: 08/19/24 08:39> Condition: Stable <Viri Bills MD - Last Filed: 08/19/24 08:39> Instructions: Cervical Fracture (DC) <Viri Bills MD - Last Filed: 08/19/24 08:39> Additional Instructions: Can try Tylenol 1000 mg up to 3 times a day as needed for discomfort. Facial bone CT, head CT and cervical spine CT were done. No acute fractures or traumatic change was noted in the head or facial bones. You have a nondisplaced fracture in the your 2nd cervical vertebra. You should wear the cervical collar at all times, as discussed, if you feel you need a more comfortable collar, please discuss this with the neurosurgery clinic. They should call you tomorrow to arrange follow-up in 6 weeks with the neurosurgery clinic. Return to the ER at any time if you are having more severe pain or develop problems with numbness, weakness, etcetera. <Viri Bills MD - Last Filed: 08/19/24 08:39> Activity Level: Activity as Tolerated <Viri Bills MD - Last Filed: 08/19/24 08:39> Activity as Tolerated <Meron Andrade MD - Last Filed: 08/18/24 01:14> Prescriptions: No Action duloxetine 60 mg capsule,delayed release(DR/EC) PO amlodipine 10 mg tablet 10 mg PO duloxetine 20 mg capsule,delayed release(DR/EC) 80 mg PO Patient Comments: TAKE 1 CAPSULE BY MOUTH EVERY DAY atenolol 25 mg tablet 25 mg PO Q24H lorazepam 0.5 mg tablet 0.5 mg PO Patient Comments: TAKE 1-2 TABLETS BY MOUTH EVERY NIGHT AT BEDTIME. desipramine 25 mg tablet 25 mg PO Patient Comments: TAKE 1 TABLET BY MOUTH EVERY MORNING. UPDATE REFILLS FOR 1 YEAR. methocarbamol 500 mg tablet 500 mg PO famotidine 20 mg tablet 20 mg PO pregabalin [Lyrica] 25 mg capsule 25 mg PO DAILY warfarin 1 mg tablet PO cephalexin 250 mg capsule 250 mg PO BID Qty: 10 0RF methylprednisolone [Medrol (Oscar)] 4 mg tablets,dose pack See Rx Instructions PO PER PKG DIR Qty: 21 0RF Rx Instructions: PO PER PKG DIR <Viri Bills MD - Last Filed: 08/19/24 08:39> Follow Up/Referrals: Provider,Not a Local [Primary Care Provider, Family Practice] <Viri Bills MD - Last Filed: 08/19/24 08:39> Stand Alone Forms: MyHealth Info Instructions <Viri Bills MD - Last Filed: 08/19/24 08:39>
--- OUTSIDE RECORDS SUMMARY | 2024-08-17 23:59 | XMS_ITS | Encounter Summary ---
Author Organization [facility] Address [address] [place] [address]. 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
--- OUTSIDE RECORDS SUMMARY | 2024-08-17 23:59 | XMS_ITS | Clinical Summary ---
Author Organization [facility] Address [address] [place] [address] Care Team Providers Care Control Supervisor Name Role Phone Carolynn Alvarado Primary Care Provider [phone] Allergies Active Allergy Reactions Criticality Noted Date Comments Lisinopril 04/23/2016 Headache COHEN Tizanidine 04/13/2023 Nightmares Medications desipramine (NORPRAMIN) 25 MG tablet Take 25 mg by mouth every morning Active DULoxetine HCl 40 MG CSDR Take 80 mg by mouth once Active order for DMEIndications: Pseudoarthrosis of cervical spine, initial encounter (H),Neck pain Orthofix bone growth stimulator: cervical 1 Device 7 Active famotidine (PEPCID) 20 MG tablet Take 20 mg by mouth daily 0 Active senna-docusate (SENOKOT-S/ONEIDA COLACE) 8.6-50 MG tabletIndicatio ns:Pseudoarthro sis of cervical spine, subsequent encounter Take 1 tablet by mouth 2 times daily as needed for constipation 30 tablet 1 1 Active amiodarone (PACERONE) 200 MG tablet Take 200 mg by mouth daily 4 Active fludrocortisone (FLORINEF) 0.1 MG tablet Take 0.1 mg by mouth daily Active methocarbamol (ROBAXIN) 500 MG tablet Take 500 mg by mouth every 6 hours as needed for muscle spasms Active midodrine (PROAMATINE) 5 MG tablet Take 5 mg by mouth every 8 hours as needed (low BP) Active midodrine (PROAMATINE) 5 MG tablet Take 5 mg by mouth daily Active Calcium Carbonate 500 (200 Ca) MG WAFR Take 1 Wafer by mouth 2 times daily (with meals) Active pregabalin (LYRICA) 25 MG capsuleIndicati ons:Cervical stenosis of spinal canal TAKE 1 CAPSULE BY MOUTH TWICE DAILY 30 capsule Active acetaminophen (TYLENOL) 500 MG tablet Take 1,000 mg by mouth every 6 hours as needed for mild pain Active Active Problems Problem Noted Date Diagnosed Date Intractable pain 04/10/2023 Acute pain of left lower extremity 04/05/2023 Lumbar radiculopathy 04/01/2023 Vitamin D deficiency 06/13/2022 Primary osteoarthritis of right hip 08/04/2020 Pseudoarthrosis of cervical spine, subsequent en counter 06/05/2020 Overview (06/05/2020): Added automatically from request for surgery [id number] H/O nonmelanoma skin cancer 11/10/2018 Overview (04/20/2023): BCC: -left chin, s/p Mohs 10/2017 Hypertriglyceridemia 03/10/2018 Cervical stenosis of spinal canal 09/10/2017 Overview (04/20/2023): Added automatically from request for surgery [id number] History of dysplastic nevus 09/05/2017 Overview (04/20/2023): rt posterior base of neck- Moderate to severe dysplasia 2005 Mixed hyperlipidemia 05/14/2017 Overview (04/20/2023): 05/14/2017 10 year 9.03% (using the ACC/AHA ASCVD risk score). 05/01/2020 9% - DECLINES STATIN - LDL too low, trial atorvastatin 2017 Chronic neck and back pain 01/28/2017 Overview (04/20/2023): S/p cervical fusion C3-5. Follows with neurosurgery. S/p lumbar discectomy Medical history and workup: Medications the patient has tried: Percocet: tabs per day = 1-2 Q4H PRN (DC'd 02/2018) and Gabapentin 300 mg QD PRN and Lorazepam 0.5-1 mg QD Rehabilitation (PT/OT/Medx)? Yes; date 2012- (PT) Behavioral health? Yes; date 2011- at [facility] Other treatment modalities tried: Injection; date [...] None Lumbosacral radiculopathy at L3 04/22/2016 Overview (04/20/2023): MRI [facility] 04/22/2016 1) right paracentral disc bulge at L2-L3 with narrowing of the right foramen and spinal canal. 2) L3-L4 there is a central disc bulge with a questionable disc protrusion extending to the right lateral aspect of the L3 vertebral body/right lateral recess with right-sided foraminal narrowing at that level Lymphocytosis 04/22/2016 Overview (04/20/2023): 04/22/[address] Norwood - the level of the patient has an absolute lymphocytosis. If persistent this could be early chronic lymphocytic leukemia. Flow cytometry may be helpful to further evaluate if it the count does not normalize Psychophysiological insomnia 10/12/2015 Low bone mass 12/21/2014 Overview (04/20/2023): Wrist Fx 2018 with fall, endo plans prolia after neck surgery 2020 DEXA 12/22/2014 mild low, DUE [id number], Ca and D 05/24/2019 worsening, -2, FRAX 24.6% and 8.1% - asked to return to icuss tx BP Aortic insufficiency 03/04/2014 Overview (04/20/2023): Moderate aortic insufficiency per echocardiogram in 2016. 03/03/2018 stable with mild dilation aorta 4.2 diameter Dilated aortic root 03/04/2014 Overview (04/20/2023): 11/2015 mild dilation, Dr Wolfe recommended repeat in 3 years. Chronic insomnia 04/02/2011 Overview (04/20/2023): Follows with Dr Bony Yanes - takes ativan 0.25 mg at bedtime, higher dose limited by fatigue. ; Insomnia, unspecified Atrophy of vulva 07/12/2010 Overview (04/20/2023): LW Onset: 04/2010 ; Genital Atrophy Female Aquired Symptomatic menopausal or female climacteric sta ja 07/12/2010 Overview (04/20/2023): LW Modifier: based on symptoms, post hyst 1979 LW Onset: 1999 ; Menopause Essential hypertension 08/21/2002 Overview (04/20/2023): hydrochlorothiazide 25, atenolol 75, norvasc 5 mg ; Hypertension Resolved Problems Problem Noted Date Diagnosed Date Resolved Date Displacement of lumbar inter vertebral disc without myelopathy 07/08/2016 08/23/2016 Surgical aftercare, musculoskeletal system 07/08/2016 08/23/2016 Encounters Date Type Department Care Team Description 08/17/2024 10:06 PM CDT - 08/17/2024 11:14 PM CDT Emergency [facility] Emergency Dept [address] [place] [address] Discharge Disposition: Left Without Being Seen 08/17/2024 Travel from Last 3 Months Immunizations Immunization Administration Dates Next Due COVID-19 Bivalent 18+ (Moderna) 12/04/2021 DT (PEDS <7y) 06/14/1987 Flu, Unspecified 04/04/2008 Influenza (High Dose) Trival ent,PF (Fluzone) 01/13/2018,01/02/2017,02/05/2016,2014,01/19/2014 Influenza (prior to 2023) 03/31/2012 Influenza Vaccine 18-64 (Flublok) 01/25/2019 Influenza Vaccine 65+ (Fluzone HD) 01/04,01/28/2022,12/23/2020,2019 Influenza Vaccine >6 months,quad, PF 02/05/2013 Influenza Vaccine IM Ages 6- 35 Months 4 Valent (PF) 02/05/2013 Pneumo Conj 13-V (2010&after) 10/27/2014 Pneumococcal 23 valent 01/28/2017 TDAP (Adacel,Boostrix) 11/26/2007 Td (Adult), Adsorbed 03/24/2019,01/31/1999 Td, Absorbed, Pf, Adult, Lf Unspecified 03/24/2019 Family History Medical History Relation Comments Hypertension [...] on file Legal Sex Female 5:10 AM INDUSTRIAL ELECTRICIAN Gender Identity Not on file Sexual Orientation Not on file Last Filed Vital Signs Vital Sign Reading Time Taken Comments Blood Pressure 140/73 04/30/2023 7:38 AM INDUSTRIAL ELECTRICIAN Pulse 72 04/30/2023 7:38 AM INDUSTRIAL ELECTRICIAN Temperature 36.4 C (97.5 F) 04/30/2023 7:38 AM INDUSTRIAL ELECTRICIAN Respiratory Rate 17 04/30/2023 7:38 AM INDUSTRIAL ELECTRICIAN Oxygen Saturation 95% 04/30/2023 7:38 AM INDUSTRIAL ELECTRICIAN Inhaled Oxygen Concentration - - Weight 58.2 kg (128 lb 4.8 oz) 04/30/2023 7:38 A M INDUSTRIAL ELECTRICIAN Height 162.6 cm (5' 4) 04/30/2023 7:38 AM INDUSTRIAL ELECTRICIAN Body Mass Index 22.02 04/30/2023 7:38 AM INDUSTRIAL ELECTRICIAN Plan of Treatment Health Maintenance Due Date Last Done Comments ADVANCE CARE PLANNING 1945 ANNUAL REVIEW OF HM ORDERS 1945 LIPID 1945 ZOSTER VACCINE (1 of 2) 12/29/1997 FALL RISK ASSESSMENT 12/29/2012 RSV VACCINE (1 - 1-dose 75+ series) 12/29/2022 COVID-19 VACCINE (2023- season) 2023 12/04/2021, 03/07/2021, 05/19/2020, Additional history exists PHQ-2 (once per calendar year) 2024 08/02/2022, 10/02/2021, 09/02/2016, Additional history exists BMP 04/30/2024 04/30/2023, 09/2023, 03/03/2021, Additional history exists MEDICARE ANNUAL WELLNESS VISIT 11/26/2024 11/27/2023, 06/13/2022, 04/26/2021, Additional history exists DIABETES SCREENING 04/30/2026 04/30/2023, 0 04/23/2023, 03/03/2021, Additional history exists DTAP/TDAP/TD VACCINE (4 - Td or Tdap) 03/24/2029 03/24/2019, 03/24/2019, 11/26/2007, Additional history exists DEXA 10/21/2038 10/22/2023, 10/17, 05/19/2019 PNEUMOCOCCAL VACCINE 50+ YEARS Completed 01/28/2017, 10/27/2014 HEPATITIS C SCREENING Completed 10/28/2017 MAMMO SCREENING Discontinued 10/01/2021, 02/15, 09/02/2017 COLORECTAL CANCER SCREENING Discontinued FIT Discontinued 07/17/2023, 06/16, 06/09/2020 INFLUENZA VACCINE Completed 11/27/2023, , 01/28/2022, Additional history exists COLONOSCOPY Discontinued CT COLONOGRAPHY Discontinued FLEX SIG Discontinued HPV VACCINE Aged Out No longer eligi ble based on patient's age to complete this topic MENINGITIS VACCINE Aged Out No longer eligible based on patient's age to complete this topic sDNA (Cologuard) Discontinued Medical Devices Implanted Type Area Open Pit Quarry Supervisor Device Identifier Shelf Expiration Date Model / Serial / Lot Graft Bone Crush Canc 15ml [id number] - [id number] Implanted:Qty : 1 on 10/11/2020 by Morgan Avelar MD at [facility] Bone/Ti ssue/Bi ologic N/A: Spine Cervical MUSCULOSKELETAL [place]TON 05/26/2023 [id number] / [id number] 1042 / 3.5 X 12mm Infinity Screw Implanted:Qty : 3 on 10/11/2020 by Morgan Avelar MD at [facility] N/A: Spine Cervical [employer] [id number] / / [id number] 021 3.5 X 14mm Infinity Screw Implanted:Qty : 1 on 10/11/2020 by Morgan Avelar MD at [facility] N/A: Spine Cervical [employer] [id number] / / [id number] 021 Set Screws Implanted:Qty : 4 on 10/11/2020 by Morgan Avelar MD at [facility] N/A: Spine Cervical [employer] [id number] / / [id number] 021 30mm Jarred Implanted:Qty : 2 on 10/11/2020 by Morgan Avelar MD at [facility] N/A: Spine Cervical [employer] [id number] / / [id number] 021 Procedures Procedure Name Priority Date/Time Associated Diagnosis Comments BASIC METABOLIC PANEL Routine 04/30/2023 8:59 AM INDUSTRIAL ELECTRICIAN Chronic atrial fibrillation, unspecified (H) from Last 3 Months or Most Recently Relevant to Health Maintenance Results * (ABNORMAL) Basic metabolic panel (04/30/2023 8:59 AM INDUSTRIAL ELECTRICIAN) Pathologist [facility] Sodium 138 135 - 145 mmol/L 04/30/2023 8:57 PM INDUSTRIAL ELECTRICIAN [facility] Comment:Reference intervals for this test were updated on 12/10/2022 to more accurately reflect our healthy population. There may be differences in the flagging of prior results with similar values performed with this method. Interpretation of those prior results can be made in the context of the updated reference intervals. Potassium 3.5 3.4 - 5.3 mmol/L 04/30/2023 8:57 PM INDUSTRIAL ELECTRICIAN [facility] Chloride 98 98 - 107 mmol/L 04/30/2023 8:57 PM INDUSTRIAL ELECTRICIAN [facility] Carbon Dioxide (CO2) 27 22 - 29 mmol/L 04/30/2023 8:57 PM INDUSTRIAL ELECTRICIAN [facility] Anion Gap 13 7 - 15 mmol/L 04/30/2023 8:57 PM INDUSTRIAL ELECTRICIAN [facility] Urea Nitrogen 11.3 8.0 - 23.0 mg/dL 04/30/2023 8:57 PM INDUSTRIAL ELECTRICIAN [facility] Creatinine 0.82 0.51 - 0.95 mg/dL 04/30/2023 8:57 PM INDUSTRIAL ELECTRICIAN [facility] GFR Estimate 74 >60 mL/min/1. 73m2 04/30/2023 8:57 PM INDUSTRIAL ELECTRICIAN [facility] Calcium 8.7(L) 8.8 - 10.2 mg/dL 04/30/2023 8:57 PM INDUSTRIAL ELECTRICIAN [facility] Glucose 80 70 - 99 mg/dL 04/30/2023 8:57 PM INDUSTRIAL ELECTRICIAN [facility] Blood STRUCTURE OF LEFT UPPER LIMB / Unknown Venipuncture / Unknown 04/30/2023 8:59 AM INDUSTRIAL ELECTRICIAN 04/30/2023 2:47 PM INDUSTRIAL ELECTRICIAN us Marcie Haskins APRN ELECTRIC SHOVEL OPERATOR LAB - BLOOD OR DERABLES Final Result [facility] [address] [facility] [facility] [place] [address], [place] [phone] from Last 3 Months or Most Recently Relevant to Health Maintenance Insurance MEDICARE MEDICA Funding Profiles MEDICARE [employer] Advance Directives For more information, please contact: [phone] * Full Code (Latest Code Status on File) Date Activated Date Inactivated Comments 10/11/2020 4:55 PM 10/12/2020 9:40 PM All basic an d advanced life-sustaining interventions are performed as appropriate Question Answer Comments Code status determined by: Discussion with patie nt/ legal decision maker * Full Code Date Activated Date Inactivated Comments 05/30/2016 2:45 PM 10/11/2020 8:24 AM Care Teams Control Supervisor Relationship Specialty Start Date End Date Carolynn Alvarado PCP - General 05/30/16
--- OUTSIDE RECORDS SUMMARY | 2024-08-18 | XMS_ITS | Encounter Summary ---
Author Organization [facility] Address [address], [place] [address] Care Team Providers Care Toy Department Manager Name Role Phone Carolynn Alvarado MD Primary Care Provider [phone] Reason for Visit * Reason Comments Prior Authorization For Medication Encounter Details Date Type Department Care Team (Late st Contact Info) Description 08/12/2024 Telephone [place] [phone] [place] [address] Christel Trujillo MD [address] [address] Prior Authorization For Medication Social History Tobacco Use Types Packs/Day Years [...] as of this encounter Nursing Notes * Bari Nur LPN - 08/12/2024 11:30 AM CDT Prior Authorization was Approved for LORazepam (ATIVAN) 0.5 MG tablet . Pharmacy has been notified.. * Sanjuanita Quach LPN - 08/12/2024 11:22 AM CDT PA initiated for Lorazepam 0.5mg in [facility] * Komal Zheng - 08/12/2024 11:19 AM CDT [facility] requesting a prior authorization for LORazepam (ATIVAN) 0.5 MG tablet. documented in this encounter Plan of Treatment Upcoming Encounters Date Type Department Care Team (Late st Contact Info) Description 09/14/2024 9:00 AM CDT Appointment [place] [phone] [facility] [address] [facility] 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
--- OUTSIDE RECORDS SUMMARY | 2024-08-18 | XMS_ITS | Clinical Summary ---
Author Organization [facility] Address [address] [place] [address] Care Team Providers Care Security Supervisor Name Role Phone Carolynn Alvarado MD Primary Care Provider [phone] Source Comments You are receiving this document as you are listed as the primary care provider,follow-up provider, or the patient has been referred to you for consultation.This is in compliance with the Medicare andMedicaid EHR Incentive Program,which states Providers who transition their patient to another setting of careor provider of care or refers their patient to another provider of care shouldprovide summary care record for each transition of care or referral. [facility] Allergies Active Allergy Reactions Criticality Noted Date Comments Lisinopril Palpitations 01/08/2010 COHEN Headache COHEN Tizanidine Other, see comments 04/13/2023 Hallucinations Medications * This document contains information received from the source organization and may not represent a complete record from that organization. acetaminophen (TYLENOL) 500 MG tablet Take 2 Tablets (1,000 mg) by mouth three times a day. Maximum acetaminophen dose is 4000 mg in 24 hours Active calcium carbonate (TUMS) 500 MG chewable tablet Chew and swallow 1 Tablet (500 mg) by mouth. 02/26/20 23 Active tmfnq-5-vfff ethyl esters (LOVAZA) 1 g capsule Take 1 Capsule (1 g) by mouth two times a day. 180 Capsule 3 08/04/19 24 Active amLODIPine (NORVASC) 5 MG tabletIndications :Essential hypertension (HRC) Take 0.5 Tablets (2.5 mg) by mouth daily. 45 Tablet 3 01/29/20 24 025 Active LORazepam (ATIVAN) 0.5 MG tabletIndications :Psychophysiologi reji insomnia TAKE 1 TO 2 TABLETS BY MOUTH EVERY NIGHT AT BEDTIME 60 Tablet 5 02/17/20 24 Active atorvastatin (LIPITOR) 20 MG tabletIndications :Mixed hyperlipidemia (HRC) Take 1 Tablet (20 mg) by mouth daily. 90 Tablet 3 05/28/19 25 026 Active cholecalciferol (VITAMIN D3) 50 MCG (1999 UT) capsuleIndication s:Age-related osteoporosis without current pathological fracture (HRC) Take 1 Capsule (2,000 Units) by mouth daily. 100 Capsule 3 05/28/19 25 Active methocarbamol (ROBAXIN) 500 MG tabletIndications :Chronic neck and back pain Take 1 Tablet (500 mg) by mouth at bedtime as needed for Other (muscle spasm). 30 Tablet 5 05/28/19 25 Active atenolol (TENORMIN) 25 MG tablet Take 0.5 Tablets (12.5 mg) by mouth daily. 45 Tablet 3 05/28/19 25 026 Active famotidine (PEPCID) 20 MG tabletIndications :Gastroesophageal reflux disease without esophagitis Take 1 Tablet (20 mg) by mouth two times daily as needed for Heartburn. 180 Tablet 3 05/28/19 Active warfarin 1 MG tabletIndications :Paroxysmal atrial fibrillation (HRC),Monitoring for long-term anticoagulant use,Persistent atrial fibrillation (HRC) Take by mouth 2 mg (1 mg x 2) every , , ; 1 mg (1 mg x 1) all other days or as directed. Your dose may change. Call [facility] [phone] with questions. 06/25/19 Active desipramine (NORPRAMIN) 25 MG tablet Take 2 Tablet (50 mg) by mouth every morning. 180 Tablet 1 07/01/19 25 Active DULoxetine (CYMBALTA) 60 MG delayed release capsuleIndication s:Dysthymic disorder (HRC) Take 1 Capsule (60 mg) by mouth daily. 90 Capsule 1 07/01/19 25 Active DULoxetine (CYMBALTA) 30 MG delayed rlease capsule Take 1 Capsule (30 mg) by mouth daily. 90 Capsule 1 07/01/19 25 Active Hospital, Clinic, or Other Facility Administered Medication Ordered Dose Route Frequency Start Date End Date Status denosumab (PROLIA) injection 60 mgIndications:Osteoporos is with current pathological fracture, unspecified osteoporosis type, sequela,Age-related osteoporosis without current pathological fracture (HRC) 60 mg SC EVERY 6 MONTHS 06/30/2024 6 Active bevacizumab intravitreal/intraocular (AVASTIN) 1.25 MG/0.05ML injection 1.25 mgIndications:Exudative age-related macular degeneration of right eye with active choroidal neovascularization (HRC) 1.25 mg IZ Once, as needed 08/13/2024 5 Ended Active Problems Problem Noted Date Diagnosed Date Monitoring for long-term anticoagulant use 07/07 Paroxysmal atrial fibrillation 04/30/2023 Vitamin D deficiency 06/13/2022 Primary osteoarthritis of right hip 08/04/2020 H/O nonmelanoma skin cancer 11/10/2018 Overview (12/04/2021): BCC: -left chin, s/p Mohs 10/2017 Hypertriglyceridemia 03/10/2018 Cervical stenosis of spinal canal 09/10/2017 Overview (09/10/2017): Added automatically from request for surgery [id number] History of dysplastic nevus 09/05/2017 Overview (09/05/2017): rt posterior base of neck- Moderate to severe dysplasia 2005 Mixed hyperlipidemia 05/14/2017 Overview (05/01/2020): 05/14/2017 10 year 9.03% (using the ACC/AHA ASCVD risk score). 05/01/2020 9% - DECLINES STATIN - LDL too low, trial atorvastatin 2017 Chronic neck and back pain 01/28/2017 Overview (04/20/2019): S/p cervical fusion C3-5. Follows with neurosurgery. S/p lumbar discectomy Medical history and workup: Medications the patient has tried: Percocet: tabs per day = 1-2 Q4H PRN (DC'd 02/2018) and Gabapentin 300 mg QD PRN and Lorazepam 0.5-1 mg QD Rehabilitation (PT/OT/Medx)? Yes; date (PT) Behavioral health? Yes; date 2011- at [facility] Other treatment modalities tried: Injection; date 03/31, [...] None Lumbosacral radiculopathy at L3 04/22/2016 Overview (04/22/2016): MRI [facility] 04/22/2016 1) right paracentral disc bulge at L2-L3 with narrowing of the right foramen and spinal canal. 2) L3-L4 there is a central disc bulge with a questionable disc protrusion extending to the right lateral aspect of the L3 vertebral body/right lateral recess with right-sided foraminal narrowing at that level Lymphocytosis 04/22/2016 Overview (04/22/2016): 04/22/[address] Norwood - the level of the patient has an absolute lymphocytosis. If persistent this could be early chronic lymphocytic leukemia. Flow cytometry may be helpful to further evaluate if it the count does not normalize Psychophysiological insomnia 10/12/2015 Low bone mass 12/21/2014 Overview (06/22/2020): Wrist Fx 2018 with fall, endo plans prolia after neck surgery 2020 DEXA 12/22/2014 mild low, DUE [id number], Ca and D 05/24/2019 worsening, -2, FRAX 24.6% and 8.1% - asked to return to dsicuss tx BP Aortic insufficiency 03/04/2014 Overview (03/03/2018): Moderate aortic insufficiency per echocardiogram in 2016. 03/03/2018 stable with mild dilation aorta 4.2 diameter Dilated aortic root 03/04/2014 Overview (01/09/2016): 11/2015 mild dilation, Dr Wolfe recommended repeat in 3 years. Routine health maintenance 02/08/2014 Overview (07/18/2023): Reviewed at [facility] exam 04/20/06/13/20222020 Menstrual periods: Post menopausal - [id number] d/c'd HRT Calcium/vit D: Recommended daily DEXA: 2007 normal, DEXA 12/22/2014 mild low, DUE 05/2019 and consult 02/2020 with endo - plan for prolia to begin after neck surgery 2020, Ca and D. DEXA 10/2021 - Endo Prolia as of 06/13/2022. DUE DEXA 10/2023 - ordered by endo ASA: discussed Obesity:Estimated body mass index is 24.05 kg/m as calculated from the following: Height as of this encounter: 1.645 m (5' 4.75). Weight as of this encounter: 65 kg (143 lb 6.4 oz). Exercise: Recommended daily 30 min Smoking cessation: Never smoker Mammogram: Last normal 12/2022, due Q1-2 years Pap smear: Last 2004, no further > 65, s/p hyst for prolapse Colonoscopy: Decline colonoscopy, 06/05/2021 negative FIT, due annually, 07/09/2022 & 07/18/2023 NEG FIT Mild early onset dysthymic d isorder, in full remission, with melancholic features, with pure dysthymic syndrome 04/02/2011 Overview (10/18/2015): Follows Dr Bony Yanes annually - duloxetine 20 mg Chronic insomnia 04/02/2011 Overview (11/06/2016): Follows with Dr Bony Yanes - takes ativan 0.25 mg at bedtime, higher dose limited by fatigue. ; Insomnia, unspecified Symptomatic menopausal or female climacteric sta ja 07/12/2010 Overview (11/06/2016): LW Modifier: based on symptoms, post hyst 1979 LW Onset: 1999 ; Menopause Atrophy of vulva 07/12/2010 Overview (11/06/2016): LW Onset: 04/2010 ; Genital Atrophy Female Aquired Essential hypertension 08/21/2002 Overview (11/06/2016): hydrochlorothiazide 25, atenolol 75, norvasc 5 mg ; Hypertension Resolved Problems Problem Noted Date Diagnosed Date Resolved Date Persistent atrial fibrillation 05/14/2023 08/04/2023 senior living (current) use of anticoagulants 05/14/2023 07/08/2023 Calculus of gallbladder with out cholecystitis without obstruction 01/28/2017 05/01/2017 Thoracic aortic aneurysm without rupture 01/28/2017 03/24/2023 Overview (03/10/2018): 11/2015 mild dilation 4.1 cm, Dr Wolfe.CT FV 4.2. Moderate aortic insufficiency per echocardiogram in 2015. 03/03/2018 stable with mild dilation aorta 4.2 diameter. DUE ECHO 02/2020 per Sonia Closed fracture of bone 07/12/201012/15 Overview (11/06/2016): LW Modifier: pelvis LW Onset: 2002 ; Fx Bone NOS Closed Bunion 07/09/2007 06/28/2013 Overview (10/18/2015): LW Modifier: Right Varicella 09/26/2005 11/17/2015 Overview (11/06/2016): Varicella Zoster Prolapse of vaginal wall 09/26/200501/2024 Overview (11/06/2016): LW Modifier: Anterior repair;1981:rectocoele repair LW Onset: 1979 ; Cystocele Depressive disorder 09/26/2005 04/02/19 12 Overview (11/06/2016): Depression NOS Neoplasm of uncertain behavior of skin 09/26/2005 09/05/2017 Overview (11/06/2016): 2005 - has derm skin check Q 1-2 years ; Dysplastic Nevus Mitral valve disorder 09/26/20052016 Overview (11/06/2016): Mitral Valve Prolapse Encounters Date Type Department Care Team Description 5 1:00 PM CDT Office Visit [facility] [address] [facility] [place] [address] Sin Castorena MD Exudative age-related macular degeneration of right eye with active choroidal neovascularization (HRC) (Primary Dx); Epiretinal membrane, left eye 5 Telephone [facility] [address] [place] [address] Christel Trujillo MD Prior Authorization For Medication 5 11:20 AM CDT Lab Visit [facility] [address] [place] [phone] Monitoring for long-term anticoagulant use 5 10:00 AM CDT Nursing Visit [facility] [address] [place] [address] Nurse, [facility] Osteoporosis with current pathological fracture, unspecified osteoporosis type, sequela (Primary Dx); Age-related osteoporosis without current pathological fracture (HRC) 5 Anticoagulation PN Antico[facility] Centralized Services [id number] [address] [facility] [address] [place] [address] Paroxysmal atrial fibrillation (HRC) (Primary Dx); Monitoring for long-term anticoagulant use 5 12:00 PM CDT Lab Visit [facility] [address] [place] [phone] Monitoring for long-term anticoagulant use 5 1:00 PM CDT Office Visit [facility] [address] [facility] 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; Posterior vitreous detachment of both eyes 5 4:10 PM CDT Lab Visit [facility] [address] [place] [address] Monitoring for long-term anticoagulant use 5 Anticoagulation [facility] [id number] [address] [place] [address] Paroxysmal atrial fibrillation (HRC) (Primary Dx); Monitoring for long-term anticoagulant use 5 11:00 AM CDT Telemedicine [facility] [address] [place] [address] Christel Trujillo MD Dysthymic disorder (HRC) (Primary Dx); Psychophysiological insomnia 5 Telephone [facility] [address] [place] [address] Reagan Campbell MD Other (Prolia CAM 2024) 5 11:20 AM CDT Lab Visit [facility] [address] [place] [address] Monitoring for long-term anticoagulant use 5 Anticoagulation [facility] Central[facility] Services [id number] [address] [place] [address] Paroxysmal atrial fibrillation (HRC) (Primary Dx); Monitoring for long-term anticoagulant use; Persistent atrial fibrillation (HRC) 5 9:30 AM CDT Office Visit [facility] [address] [facility] [address] [facility] [address] [place] [phone] Tra Mullins, DPM Metatarsalgia, right foot (Primary Dx) 5 Telephone [facility] Central[facility] Services [id number] [address] [place] [address] Carolynn Alvarado MD Anticoagulation: Labs Overdue ( Outreach x 1.) 5 1:15 PM CDT Office Visit [facility] [address] [facility] 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) (Primary Dx); Epiretinal membrane, left eye 5 11:50 AM CDT Lab Visit [facility] [address] [place] [phone] Monitoring for long-term anticoagulant use 5 Anticoagulation PN Anticoagulation Centralized Services [id number] [address] [place] [address] Paroxysmal atrial fibrillation (HRC) (Primary Dx); Monitoring for long-term anticoagulant use 5 Telephone [facility] [id number] [address] [place] [address] Carolynn Alvarado MD Anticoagulation: Labs Overdue (1st outreach/) 5 1:40 PM CDT Ancillary Procedure [facility] [address] [place] [address] Carolynn Alvarado MD Left foot pain 5 1:35 PM CDT Ancillary Procedure [facility] [address] [place] [address] Carolynn Alvarado MD Right foot pain 5 1:00 PM CDT Office Visit [facility] [address] [place] [address] Carolynn Alvarado MD Essential hypertension (HRC) (Primary Dx); Mixed hyperlipidemia (HRC); Lymphocytosis (HRC); Chronic insomnia; Dilated aortic root (HRC); Cervical stenosis of spinal canal; Chronic neck and back pain; Hypertriglyceridemia (HRC); Low bone mass; Age-related osteoporosis without current pathological fracture (HRC); Scoliosis, unspecified scoliosis type, unspecified spinal region; Gastroesophageal reflux disease without esophagitis; Paroxysmal atrial fibrillation (HRC); Monitoring for long-term anticoagulant use; Persistent atrial fibrillation (HRC); Right foot pain; Left foot pain 5 Results Follow-Up [facility] [address] [place] [address] Izabella Prakash, POLISHER DIAL, DATA SECURITY CONSULTANT 5 10:50 AM BIOMEDICAL ENGINEERING SUPERVISOR Lab Visit [facility] [address] [place] [address] Screening for diabetes mellitus; Mixed hyperlipidemia (HRC); Medication monitoring encounter; Abnormal findings on diagnostic imaging of other specified body structures; Essential hypertension (HRC); Lymphocytosis (HRC); Monitoring for long-term anticoagulant use 5 Anticoagulation PN Antico[facility] Centralized Services [id number] [address] [facility] [place], [place] [address] Paroxysmal atrial fibrillation (HRC) (Primary Dx); Monitoring for long-term anticoagulant use from Last 3 Months Immunizations Immunization Administration Dates Next Due DT Ped 06/14/1987 Flu Vac Preserv Free (3+yrs) 03/31/2012 Flublok (RIV4) 01/25/2019 Influenza (Fluzone 0.25, 6-35 mos) 02/05/2013 Influenza IIV3 (Trivalent) F luzone Highdose, 65+ Yrs (27160) 01/13/2018,01/02/2017,02/05/2016,2014,01/19/2014 Influenza IIV4 (Quadrivalent ) 0.5mL (58073) 02/05/2013 Influenza IIV4 (Quadrivalent ) Fluzone, 65+ Yrs 01/04/2023,01/28/2022,12/23/2020,2019 Influenza aIIV3 65+ Years (Fluad) 11/27/2023 Influenza, Unspecified Formulation 04/04/2008 Moderna Bivalent 12+ 12/04/2021 Moderna Monovalent 12+ 03/07/2021,05/19/2020,07/2020 Moderna Monovalent Booster 12+ 05/19/2020 PCV13 (Prevnar) 10/27/2014 PPSV23 (Pneumovax) 01/28/2017 TB Skin Test (PPD) 04/28/2023,04/18/2023 TDAP (ADACEL) 11/26/2007 Td 01/31/1999 Td (7+ yrs) 03/24/2019 Family History Medical History Relation Name Comments Emphysema Father Ed COPD High Blood Pressure Father Ed Hypertension Father Ed Macular Degeneration Father Ed Cancer Mother Isis gallbladder Emphysema Mother Isis COPD High Blood Pressure [...] file Not on file Not on file Last Filed Vital Signs Vital Sign Reading Time Taken Comments Blood Pressure 99/55 05/27/2024 12:58 PM CDT Pulse 65 05/27/2024 12:58 PM CDT Temperature 36.6 C (97.8 F) 02/18/2024 11:38 AM BIOMEDICAL ENGINEERING SUPERVISOR Respiratory Rate 18 02/18/2024 11:38 AM BIOMEDICAL ENGINEERING SUPERVISOR Oxygen Saturation 98% 02/18/2024 11:38 AM BIOMEDICAL ENGINEERING SUPERVISOR Inhaled Oxygen Concentration - - Weight 63 kg (138 lb 12.8 oz) 05/27/2024 12:58 P M CDT Height 161.3 cm (5' 3.5) 05/27/2024 12:58 PM CD T Body Mass Index 24.2 05/27/2024 12:58 PM CDT Plan of Treatment Upcoming Encounters Date Type Department Care Team (Late st Contact Info) Description 09/14/2024 9:00 AM CDT Appointment [facility] [address] [place] [address] Sin Castorena MD [address] [place], [place] [address] 11/30/2024 11:30 AM CDT Appointment [facility] [address] [place], [place] [phone] [place] [address] [place], [place] [phone] 02/07/2025 11:00 AM BIOMEDICAL ENGINEERING SUPERVISOR Appointment [facility] [address] [place] [address] Reagan Campbell MD [address] [place], [place] [phone] Health Maintenance Due Date Last Done Comments Zoster/Shingles Vaccine (1 of 2) 12/29/1997 RSV Vaccine (1 - 1-dose 75+ series) 12/29/2022 COVID-19 Vaccine (2023- season) 2023 12/04/2021, 03/07/2021, 05/19/2020, Additional history exists Medicare Annual Wellness Visit 11/26/2024 11/27/2023, 06/13/2022, 04/26/2021, Additional history exists Prediabetes: HGBA1C 05/20/2025 05/20/2024, 06/02/2023, 04/05/2023, Additional history exists DTaP/Tdap/Td Vaccine (5 - Tdap) 03/24/2029 03/24/2019, 11/26/2007, 01/31/1999, Additional history exists Dexa 10/21/2029 10/22/2023, 10/17, 11/14/2021, Additional history exists Pneumococcal Vaccine 50+ Yrs Completed 01/28/2017, 10/27/2014 Hep C Screening (Preventive Services) Completed 10/28/2017 FIT Colon Cancer Screening Discontinued 07/16, 07/08/2022, 06/01/2021, Additional history exists Influenza Vaccine Completed 11/27/2023, , 01/28/2022, Additional history exists Cholesterol Discontinued 05/20/2024, 09/16, 06/02/2023, Additional history exists HepA Vaccine Aged Out No longer eligi ble based on patient's age to complete this topic HepB Vaccine Aged Out No longer eligi ble based on patient's age to complete this topic Hib Vaccine Aged Out No longer eligi ble based on patient's age to complete this topic IPV (Polio) Vaccine Aged Out No longe r eligible based on patient's age to complete this topic MCV4 Vaccine Aged Out No longer eligi ble based on patient's age to complete this topic Meningococcal B Vaccine Aged Out No l onger eligible based on patient's age to complete this topic Medical Devices Implanted Type Area Sampling Expert Device Identifier Shelf Expiration Date Model / Serial / Lot Bone Lasr [id number] - [id number] Implanted:Qty: 1 on 11/25/2017 by Morgan Avelar MD at [facility] BIOLOGIC N/A: SPINE CERVICAL ANTERIOR Med[employer]onic - [employer] 06/17/2020 [id number] / [id number] / [id number] Description:C5-6 Bone Lasr [id number] - [id number] Implanted:Qty: 1 on 11/25/2017 by Morgan Avelar MD at [facility] DEVICE N/A: SPINE CERVICAL ANTERIOR Medtronic - [employer] 10/03/2019 [id number] / [id number] / [id number] Description:C3-4 Plt Spnl Translational 57.5mm - [id number] Implanted:Qty: 1 on 11/25/2017 by Morgan Avelar MD at [facility] DEVICE N/A: SPINE CERVICAL ANTERIOR Medtronic - [employer] 11/25/2017 [id number] / NA / NA Scr Sftp Va 4.0x12 - [id number] Implanted:Qty: 2 on 11/25/2017 by Morgan Avelar MD at [facility] DEVICE N/A: SPINE CERVICAL ANTERIOR Medtronic - [employer]ane[employer] 11/25/2017 [id number] / NA / NA Scr Sftp Va 4.0x14 - [id number] Implanted:Qty: 5 on 11/25/2017 by Morgan Avelar MD at [facility] DEVICE N/A: SPINE CERVICAL ANTERIOR Medtronic - [employer] 11/25/2017 [id number] / NA / NA Procedures Procedure Name Priority Date/Time Associated Diagnosis Comments INTRAVITREAL INJECTION PHARMACOLOGIC AGENT OD RIGHT EYE Routine 08/13/2024 1:31 PM CDT Exudative age-related macular degeneration of right eye with active choroidal neovascularization (HRC) INR/PROTIME Routine 08/04/2024 10:28 AM CDT Monitoring for long-term anticoagulant use INTRAVITREAL INJECTION PHARMACOLOGIC AGENT OD RIGHT EYE Routine 07/15/2024 1:31 PM CDT Exudative age-related macular degeneration of right eye with active choroidal neovascularization (HRC) INR/PROTIME Routine 07/09/2024 4:03 PM CDT Monitoring for long-term anticoagulant use INR/PROTIME Routine 06/24/2024 11:19 AM CDT Monitoring for long-term anticoagulant use INTRAVITREAL INJECTION PHARMACOLOGIC AGENT OD RIGHT EYE Routine 06/08/2024 2:04 PM CDT Exudative age-related macular degeneration of right eye with active choroidal neovascularization (HRC) INR/PROTIME Routine 06/02/2024 11:28 AM CDT Monitoring for long-term anticoagulant use XR FOOT LT 3+ VIEWS Routine 05/27/2024 1 :55 PM CDT Left foot pain XR FOOT RT 3+ VIEWS Routine 05/27/2024 1 :55 PM CDT Right foot pain COMPLETE BLOOD COUNT-W/DIFF Routine 05/20/2024 10:52 AM BIOMEDICAL ENGINEERING SUPERVISOR Essential hypertension (HRC) Lymphocytosis (HRC) INR/PROTIME Routine 05/20/2024 10:52 AM BIOMEDICAL ENGINEERING SUPERVISOR Monitoring for long-term anticoagulant use CBC AND DIFFERENTIAL PANEL Routine 05/20/2024 10:52 AM BIOMEDICAL ENGINEERING SUPERVISOR Essential hypertension (HRC) Lymphocytosis (HRC) ELECTROLYTE PANEL Routine 05/20/2024 10: 52 AM BIOMEDICAL ENGINEERING SUPERVISOR Essential hypertension (HRC) CREATININE / GFR Routine 05/20/2024 10:5 2 AM BIOMEDICAL ENGINEERING SUPERVISOR Essential hypertension (HRC) TSH, SENSITIVE Routine 05/20/2024 10:52 AM BIOMEDICAL ENGINEERING SUPERVISOR Medication monitoring encounter Abnormal findings on diagnostic imaging of other specified body structures ALT (SGPT) Routine 05/20/2024 10:52 AM BIOMEDICAL ENGINEERING SUPERVISOR Mixed hyperlipidemia (HRC) Medication monitoring encounter AST Routine 05/20/2024 10:52 AM BIOMEDICAL ENGINEERING SUPERVISOR Mixed hyperlipidemia (HRC) Medication monitoring encounter LIPID PANEL & DIRECT LDL (IF NEEDED) Routine 05/20/2024 10:52 AM BIOMEDICAL ENGINEERING SUPERVISOR Mixed hyperlipidemia (HRC) HGB A1C Routine 05/20/2024 10:52 AM BIOMEDICAL ENGINEERING SUPERVISOR Screening for diabetes mellitus DXA BONE DENSITY SPINE/HIP INC VERT FX ASSESS Routine 10/22/2023 9:05 AM CDT Osteoporosis with current pathological fracture, unspecified osteoporosis type, sequela Age-related osteoporosis without current pathological fracture (HRC) FIT,OCCULT BLOOD, STOOL Routine 07/17/2023 8:00 AM CDT Screening for colon cancer HEPATITIS C ANTIBODY, WITH REFLEX Routine 10/28/2017 12:37 PM CDT Need for hepatitis C screening test from Last 3 Months or Most Recently Relevant to Health Maintenance Results * Intravitreal injection, pharmacologic agent, OD, Right Eye (08/13/2024 1:31 PM CDT) Only the most recent of3 resultswithin the time period is included. Narrative [facility] - 08/13/2024 1:31 PM CDT Time Out 08/13/2024. 1:24 PM. Confirmed correct patient, procedure, site, and patient consented. Injection: 1.25 mg bevacizumab intravitreal/intraocular 1.25 MG/0.05ML Route: Intravitreal, Site: Right Eye [facility]: [address]-4, Lot: [id number], Expiration date: 10/29/2024 Sin Castorena MD OPHTH CLINIC PROCEDURES Final Result Performing Organization Address [facility] de Phone Number [facility] * (ABNORMAL) INR/Protime (08/04/2024 10:28 AM CDT) Only the most recent of5 resultswithin the time period is included. Protime 21.0(H) 11.8 - 14.6 Seconds 08/04/2024 11:00 AM CDT [facility] INR 1.8(H) 0.9 - 1.1 08/04/2024 11:00 AM CDT [facility] LABORATORY Blood Venipuncture / Unknown 08/04/2024 10:28 AM CDT 08/04/2024 10:44 AM CDT Narrative [facility] - 08/04/2024 11:00 AM CDT If you take an anticoagulant medicine called warfarin, your doctor or clinician may establish a normal range for you that is different from the baseline range shown. Carolynn Alvarado MD LAB_1 Final Result Performing Organization Address [facility] de Phone Number [facility] [address] [place] [address] * XR Foot Lt 3+ Views (05/27/2024 1:55 PM CDT) Anatomical Region Laterality Modality Lower Extremity, Foot Digital Ra diography 05/27/2024 1:34 PM CDT Narrative 05/27/2024 2:26 PM CDT COMPARISON: None FINDINGS: Mild first MTP joint degenerative change and bunion formation. Moderate arthrosis of the second and third toe DIP joints. No fracture identified. Mild midfoot and tibiotalar degenerative change. Procedure Note Douglas Burrows MD - 05/27/2024 COMPARISON: None FINDINGS: Mild first MTP joint degenerative change and bunion formation.Moderate arthrosis of the second and third toe DIP joints. No fractureidentified. Mild midfoot and tibiotalar degenerative change. Carolynn Alvarado MD RAD GD Final Result * XR Foot Rt 3+ Views (05/27/2024 1:55 PM CDT) Anatomical Region Laterality Modality Lower Extremity, Foot Digital Ra diography 05/27/2024 1:34 PM CDT Narrative 05/27/2024 2:24 PM CDT COMPARISON: 10/09/2018 and 09/29/2007. FINDINGS: Postoperative changes of osteotomy in the distal right first metatarsal are again noted. There are fmvf-[id number] degenerative changes throughout the TMT joints and mild degenerative changes and scattered IP joints of the right foot. Subtle lucency in the proximal right fifth metatarsal on the lateral view only may represent subacute or chronic fracture. No definite acute fracture is identified. Procedure Note Blake Larry MD - 05/27/2024 COMPARISON: 10/09/2018 and 09/29/2007. FINDINGS: Postoperative changes of osteotomy in the distal right firstmetatarsal are again noted. There are wmcy-nd-igdixvin degenerativechanges throughout the TMT joints and mild degenerative changes andscattered IP joints of the right foot. Subtle lucency in the proximalright fifth metatarsal on the lateral view only may represent subacute orchronic fracture. No definite acute fracture is identified. Carolynn Alvarado MD RAD GD Final Result * Lipid Panel & Direct LDL (if Needed) (05/20/2024 10:52 AM BIOMEDICAL ENGINEERING SUPERVISOR) Cholesterol 125 0 - 199 mg/dL 05/20/2024 4:43 PM [facility] Triglyceride 102 <=149 mg/dL 05/20/2024 4:43 PM [facility] HDL Cholesterol 59 >=40 mg/dL 5 4:43 PM [facility] LDL, Calculated 46 <130 mg/dL 5 4:43 PM [facility] Non HDL Chol, Calculated 66 <=159 mg/dL 05/20/2024 4:43 PM [facility] Cholesterol/HDL Ratio 2.1 <=5.0 05/20/2024 4:43 PM [facility] Hours Fasting 0.0 8 - 12 Hours 05/20/2024 4:43 PM [facility] Blood Venipuncture / Unknown 05/20/2024 10:52 AM BIOMEDICAL ENGINEERING SUPERVISOR 05/20/2024 10:52 AM [facility] Carolynn Alvarado MD LAB_1 Final Result Performing Organization Address City/[facility]/ZIP Co de Phone Number [address] [phone] * Creatinine / GFR (05/20/2024 10:52 AM [facility]) Creatinine 0.82 0.55 - 1.02 mg/dL 05/20/2024 4:43 PM [facility] GFR, Estimated >60 >60 mL/min/1.7 3m2 05/20/2024 4:43 PM [facility] Blood Venipuncture / Unknown 05/20/2024 10:52 AM BIOMEDICAL ENGINEERING SUPERVISOR 05/20/2024 10:52 AM [facility] Carolynn Alvarado MD LAB_1 Final Result Performing Organization Address City/[facility]/ZIP Co de Phone Number [place] [phone] * Complete Blood Count-W/Diff (05/20/2024 10:52 AM [facility]) WBC 9.5 3.5 - 10.5 x10(9)/L 05/20/2024 10:57 AM [facility] RBC 3.92 3.90 - 5.03 x10(12)/L 05/20/2024 10:57 AM [facility] Hemoglobin 12.2 12.0 - 15.5 g/dL 05/20/2024 10:57 AM [facility] HCT 37.7 34.9 - 44.5 % 05/20/2024 10:57 AM [facility] MCV 96.2 80.0 - 100.0 fL 05/20/2024 10:57 AM [facility] MCH 31.1 27.6 - 33.3 pg 05/20/2024 10:57 AM [facility] MCHC 32.4 31.5 - 35.2 g/dL 05/20/2024 10:57 AM [facility] RDW 12.6 11.9 - 15.5 % 05/20/2024 10:57 AM [facility] Platelets 373 150 - 450 x10(9)/L 05/20/2024 10:57 AM [facility] Neutrophil Absolute 5.3 1.7 - 7.0 10(9)/L 05/20/2024 10:57 AM [facility] Lymphocyte Absolute 2.9 1.0 - 4.8 10(9)/L 05/20/2024 10:57 AM [facility] Monocyte Absolute 0.8 0.2 - 0.9 10(9)/L 05/20/2024 10:57 AM [facility] Eosinophil Absolute 0.3 0.0 - 0.5 10(9)/L 05/20/2024 10:57 AM [facility] Basophil Absolute 0.1 0.0 - 0.3 10(9)/L 05/20/2024 10:57 AM [facility] Immature Granulocyte % 0.2 0.0 - 0.5 % 05/20/2024 10:57 AM [facility] Blood Venipuncture / Unknown 05/20/2024 10:52 AM BIOMEDICAL ENGINEERING SUPERVISOR 05/20/2024 10:52 AM [facility] us Carolynn Alvarado MD LAB_1 Final Result [facility] [address] [place] [address], [facility] * TSH (05/20/2024 10:52 AM BIOMEDICAL ENGINEERING SUPERVISOR) [facility] TSH, Sensitive 2.52 0.30 - 4.50 uIU/mL 05/20/2024 4:32 PM BIOMEDICAL ENGINEERING SUPERVISOR [facility] Blood Venipuncture / Unknown 05/20/2024 10:52 AM BIOMEDICAL ENGINEERING SUPERVISOR 05/20/2024 10:52 AM [facility] Carolynn Alvarado MD LAB_1 Final Result Performing Organization Address [facility] Co de Phone Number [facility] [address] * Electrolyte Panel (05/20/2024 10:52 AM BIOMEDICAL ENGINEERING SUPERVISOR) Sodium 140 136 - 145 mmol/L 05/20/2024 4:43 PM [facility] Potassium 4.0 3.5 - 5.1 mmol/L 05/20/2024 4:43 PM [facility] Chloride 104 98 - 109 mmol/L 05/20/2024 4:43 PM [facility] CO2 28 20 - 29 mmol/L 05/20/2024 4:43 PM [facility] Anion Gap 8 6 - 16 mmol/L 05/20/2024 4:43 PM [facility] Blood Venipuncture / Unknown 05/20/2024 10:52 AM BIOMEDICAL ENGINEERING SUPERVISOR 05/20/2024 10:52 AM [facility] Carolynn Alvarado MD LAB_1 Final Result Performing Organization Address [facility] de Phone Number [facility] [address] [place] [phone] * Hgb A1C (05/20/2024 10:52 AM [facility]) Hemoglobin A1C 5.5 <=5.6 % 05/20/2024 6:22 PM [facility] Estimated Average Glucose (Calc) 111 < 117 mg/dL 05/20/2024 6:22 PM [facility] Comment:Estimated average gl ucose (eAG) converts A1c into glucose units (mg/dL) and estimates average glucose over the past approximately 3 months. The eAG reference interval (<117 mg/dL) corresponds to an A1c of <5.7%. Blood Venipuncture / Unknown 05/20/2024 10:52 AM BIOMEDICAL ENGINEERING SUPERVISOR 05/20/2024 10:52 AM BIOMEDICAL ENGINEERING SUPERVISOR Carolynn Alvarado MD LAB_1 Final Result Performing Organization Address City/[facility]/ZIP Co de Phone Number [facility] [address] * ALT (SGPT) (05/20/2024 10:52 AM BIOMEDICAL ENGINEERING SUPERVISOR) ALT (SGPT) 15 0 - 55 U/L 05/20/2024 4:43 PM BIOMEDICAL ENGINEERING SUPERVISOR [facility] Blood Venipuncture / Unknown 05/20/2024 10:52 AM BIOMEDICAL ENGINEERING SUPERVISOR 05/20/2024 10:52 AM BIOMEDICAL ENGINEERING SUPERVISOR Carolynn Alvarado MD LAB_1 Final Result Performing Organization Address [facility] Co de Phone Number [place] [phone] * AST (05/20/2024 10:52 AM BIOMEDICAL ENGINEERING SUPERVISOR) Pathologist [facility] AST (SGOT) 23 10 - 40 U/L 05/20/2024 4:43 PM BIOMEDICAL ENGINEERING SUPERVISOR [facility] Blood Venipuncture / Unknown 05/20/2024 10:52 AM BIOMEDICAL ENGINEERING SUPERVISOR 05/20/2024 10:52 AM BIOMEDICAL ENGINEERING SUPERVISOR Carolynn Alvarado MD LAB_1 Final Result Performing Organization Address City/[facility] Co de Phone Number [facility] [address] [place] [phone] * DXA Bone Density Spine/Hip Inc Vert FX Assess (10/22/2023 9:05 AM CDT) DXA Hip Left Bone Mineral Density 0.788 gm/cm2 EXTERNAL RESULTS DXA Hip Left T-Score -1.3 EXTERNAL RESULTS DXA Hip Left Z-Score 0.6 EXTERNAL RESULTS DXA Femur Left Bone Mineral Density 0.551 gm/cm2 EXTERNAL RESULTS DXA Femur Left T-Score -2.7 EXTERNAL RESULTS DXA Femur Left Z-Score -0.6 EXTERNAL RESULTS % Change Left Hip (Total) 2.1 % EXTERNAL RESULTS Anatomical Region Laterality Modality Spine, Hip Radiographic Jasmine ging Narrative 10/22/2023 9:31 AM CDT Table formatting from the original result was not included. Patient Name: Michelle Franz Densitometer: TCAS Online W Appt Dept/Resource: Gil Bone Density GIL BONE Demographics Age: 77 y.o. Gender: Female Height: 5' 3.78 (1.62 m) Height at age 27: 5.8 Weight: 135 lb (61.2 kg) Race: Medical/Surgical History Menstrual periods: None Age of menopause: 50 Able to stand from a chair easily without use of the arms?: Yes, easily How many falls indoors/outdoors within the last 12 months?: 0 History of previous fractures?: Yes Location: Arm/Shoulder Hip replacement?: No Oral cortisone or steroid medication for more than 3 months?: No Current medication for osteoporosis: Denosumab (Prolia) Previously taken medication for osteoporosis: None Taking any aromatase inhibitor medication for breast cancer - anti-estrogen excluding tamoxifen?: No Have had the following medical conditions: None Dietary/Habit Alcohol 3 units or more per day on average?: No Currently smoking tobacco? No Daily servings of calcium rich food: 2 Do you take a daily calcium supplement?: Yes, once per day Dual-X-ray Absorptiometry (DXA) Results Skeletal Site BMD (gm/cm2) T-Score Z-Score % Change from Previous Scan dated: 11/14/2021 Spine (Not Scanned) N/A N/A N/A N/A Left Hip (Total) 0.788 -1.3 0.6 2.1% Left Hip (Femoral neck) 0.551 -2.7 -0.6 N/A Right Hip (Total) N/A N/A N/A N/A Right Hip (Femoral neck) N/A N/A N/A N/A Forearm (1/3) (Not Scanned) N/A N/A N/A N/A *N/A indicates that measurements were either not needed or not valid FRAX Score: 10 Year Risk Hip Fracture: 31% 10 Year Risk Major Osteoporotic Fracture: 45% VERTEBRAL FRACTURE ASSESSMENT: No vertebral fractures are present in evaluable vertebrae Comments: *Increase in bone density of hip is not clinically significant. *Spine is excluded due to degenerative changes, artifact(s), and/or surgical hardware. Diagnosis: *Osteoporosis Recommendations:. *Recommend lifestyle modifications as needed, including proper Calcium/Vitamin D intake, weight bearing exercises, and fall prevention. *Consider evaluation of secondary causes of bone loss if not previously performed. Clinical correlation needed regarding treatment decisions and whether to continue denosumab. *Consider follow up DXA in 2 years, unless clinical circumstances change. Changes of spine and total hip bone density = 0.03 g/cm2 are beyond densitometer precision error and generally are considered significant when the current and prior studies were done on the same densitometer. FRAX Explanation: The 10 year risks of hip and major osteoporotic fractures (clinical spine, forearm, hip or shoulder fracture) are calculated by the FRAX algorithm based on femoral neck bone density, age, gender, race/ethnicity, weight, height, previous fracture, parental hip fracture, smoking status, glucocorticoid intake, history of RA, secondary osteoporosis, and high alcohol consumption. FRAX fracture risk estimates are adjusted for Trabecular Bone Score (TBS) when available. Trabecular Bone Score (TBS) is a measure of the microarchitectural integrity of trabecular bone, and is derived from the itbzd-pz-[id number] changes of bone density embedded in the AP spine BMD image. TBS is only modestly correlated with BMD, and is modestly associated with incident major osteoporotic and hip fractures independent of BMD and other risk factors. FRAX Fracture Risk Categories in terms of major osteoporotic fractures: < 10% = low fracture risk = 10% and <15% = mildly increased fracture risk = 15% and <20% = moderately increased fracture risk = 20% and <30% = high fracture risk = 30% = very high fracture risk National Osteoporosis Foundation Treatment Guideline A clinician may consider FDA-approved medical therapies in postmenopausal women and men aged 50 years and older, if one or more of the following is present (clinical correlation required and therapy may not always be indicated): The patient has a hip or vertebral fracture. T-score = -2.5 at the femoral neck, hip, or spine after appropriate evaluation to exclude secondary causes. Low bone mass (T-score between -1.0 and -2.5 at the femoral neck, hip or spine) and a 10-year probability of a hip fracture = 3% or a 10-year probability of a major osteoporosis-related fracture = 20% based on the FRAX scores. Reagan Campbell MD RAD DEXA Final R esult * FIT Colon Rectal Cancer Screening (07/17/2023 8:00 AM CDT) FIT Specimen 1 Negative Negative 07/18/2023 1:58 AM CDT [facility] Stool Non-blood Collection / Unknown 07/17/2023 8:00 AM CDT 07/17/2023 6:16 PM CDT us Carolynn Alvarado MD LAB_1 Final Result Performing Organization Address City/[facility]/ZIP Co de Phone Number [facility] [address] * Hepatitis C Virus Ivy with Reflex (10/28/2017 12:37 PM CDT) Hepatitis C Antibody Nonreactive Nonreactive PN SOFT 10/28/2017 12:3 7 PM CDT 10/28/2017 3:58 PM CDT Narrative PN SOFT - 10/28/2017 4:40 PM CDT Performed at [address] [address] CLIA number [id number] us Carolynn Alvarado MD LAB_1 Final Result Performing Organization Address City/[facility] Co de Phone Number PN SOFT [address] [place] [phone] from Last 3 Months or Most Recently Relevant to Health Maintenance Additional Health Concerns Infection Onset Date Last Indicated 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 (+) 11/07/2015 11/07/2015 Insurance MEDICARE MANAGED CARE MEDICA [employer] MEDICARE MANAGED CARE MEDICA MEDICA [employer] MEDICARE MANAGED CARE MEDICA MEDICA PRIME SOLUTION Advance Directives * Full Code (Latest Code Status on File) Date Activated Date Inactivated Comments 11/25/2017 12:48 PM 11/26/2017 4:55 PM * Full Code Date Activated Date Inactivated Comments 03/28/2017 11:09 AM 03/28/2017 4:40 PM * Full Code Date Activated Date Inactivated Comments 06/24/2014 12:24 PM 06/25/2014 1:05 PM Care Teams Security Supervisor Relationship Specialty [place] [address] [address] [address] PCP - General Internal Medicine 11/09/15
--- OUTSIDE RECORDS SUMMARY | 2024-08-18 | XMS_ITS | Encounter Summary ---
Author Organization [facility] Address [address] [place] [address] Care Team Providers Care Shot Core Drill Operator Name Role Phone Carolynn Alvarado MD Primary Care Provider [phone] Carolynn Alvarado MD Primary Care Provider [facility], [facility] Unavailable Encounter Details Date Type Department Care Team (Late st Contact Info) Description 03/28/2023 Prep For Procedure NMR PROVIDER [address] [place] [address] Nj Thorne PA-C [address] [place] [address] Social History Tobacco Use Types Packs/Day Years Used Date Smoking Tobacco: Never Smokeless Tobacco: Never Alcohol Use Standard Drinks/Week Comments Never 0 (1 standard drink = 0.6 oz pur e alcohol) [facility] Utilities Answer Date Recorded In the past 12 months has [facility] [employer], gas, oil, or water [employer] threatened to shut off services in your [...] a senior care (including now)? No 04/01/2023 Comments No Sex and Gender Information Value Date Recorded Sex Assigned at Female 03/11/2023 11:10 AM SUPERVISOR [employer] Legal Sex Female 12:50 PM SUPERVISOR [employer] Gender Identity Female 03/11/2023 11:10 AM SUPERVISOR [employer] Sexual Orientation Straight 03/11/2023 11 :10 AM SUPERVISOR [employer] documented as of this encounter Plan of Treatment Not on file documented as of this encounter Visit Diagnoses Not on filedocumented in this encounter Additional Health Concerns Infection Onset Date Last Indicated Resolved Time MRSA Comment:CLEARED by Infection Prevention 04/01/23 04/01/2023 04/01/2023 04/01/2023 11:11 AM SUPERVISOR [employer] documented as of this encounter Care Teams Shot Core Drill Operator Relationship Specialty [place] [address] [place] [address] PCP - General Internal Medicine 03/12/23 04/01/23 [place] [address] [address] [place] [address] PCP - General Internal Medicine 04/02/23 Clinic, [facility] [address] [phone] PCP - Primary Care Clinic 04/02/2304/20 documented as of this encounter
--- OUTSIDE RECORDS SUMMARY | 2024-08-18 | XMS_ITS | Encounter Summary ---
Author Organization [facility] Address [address] [address] Care Team Providers Care Claims Clerk Name Role Phone Carolynn Alvarado MD Primary Care Provider [phone] Encounter Details Date Type Department Care Team (Late Contact Info) Description 05/21/2024 Results Follow-Up [facility] [address] [place], [place] [phone] Izabella Prakash, OVERLOCK COLLAR SETTER, SPORTS FITNESS AND WELLNESS DIRECTOR [address] [place] [address] Social History Tobacco Use Types Packs/Day Years [...] Info) Description 09/14/2024 9:00 AM CDT Appointment [facility] [address] [facility] 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
--- OUTSIDE RECORDS SUMMARY | 2024-08-18 | XMS_ITS | Clinical Summary ---
Author Organization [facility] Address [address] [place] [address] Care Team Providers Care Electric Transfer Operator Name Role Phone Carolynn Alvarado MD Primary Care Provider Allergies Active Allergy Reactions Criticality Noted Date Comments Lisinopril Palpitations,Unknown 01/08/2010 COHEN COHEN Headache COHEN Tizanidine 04/13/2023 Nightmares Other Reaction(s): hallucination Medications medical supply, miscellaneous (ELECTRICAL BONE GROWTH STIMULATOR)Indica tions:S/P lumbar fusion Company: [employer] for home use. 1 each 3 Active calcium carbonate (TUMS) 200 mg calcium (500 mg) oral chew tabIndications:S/ P lumbar fusion Chew 1 tablet (500 mg) twice a day with breakfast and dinner. 180 tablet 3 3 Active ergocalciferol (VITAMIN D2) 1,250 mcg (50,000 unit) oral capsuleIndication s:S/P lumbar fusion Take 1 capsule (50,000 Units) by mouth every 7 (seven) days. 12 capsule 3 3 Active desipramine (NORPRAMIN) 25 mg oral tablet Take 1 tablet (25 mg) by mouth Daily. Active famotidine (PEPCID) 20 mg oral tablet Take 1 tablet (20 mg) by mouth once daily. 2 Active DULoxetine (CYMBALTA) 20 mg oral delayed release capsule 1 capsule (20 mg) once daily. 3 Active DULoxetine (CYMBALTA) 60 mg oral delayed release capsule Take 1 capsule (60 mg) by mouth once daily. 3 Active senna-docusate (SENNA-S) 8.6-50 mg oral tablet Take 1 tablet by mouth twice a day as needed. 60 tablet 4 Active hydrOXYzine pamoate (VISTARIL) 25 mg oral capsule Take 1 capsule (25 mg) by mouth every 6 (six) hours as needed. 12 capsule 04/03/2023 12:39 PM RESISTANCE WELDER 4 Active polyethylene glycol (MIRALAX) 17 gram oral powder Take 17 g by mouth twice a day. Mix each dose in 4-8 ounces of liquid as directed. 510 g 4 Active docusate sodium (COLACE) 100 mg oral capsule Take 1 capsule (100 mg) by mouth twice a day. 30 capsule 4 Active methocarbamoL (ROBAXIN) 500 mg oral tablet Take 1 tablet (500 mg) by mouth every 6 (six) hours as needed. Active fludrocortisone (FLORINEF) 0.1 mg oral tablet Take 1 tablet (0.1 mg) by mouth once daily. 4 Active midodrine (PROAMITINE) 5 mg oral tablet Take 1 tablet (5 mg) by mouth three times a day as needed (SBP<100). 4 Active midodrine (PROAMITINE) 5 mg oral tablet Take 1 tablet (5 mg) by mouth every morning. 4 Active warfarin (COUMADIN) 2.5 mg oral tablet INR 2-3 4 Active LORazepam (ATIVAN) 0.5 mg oral tablet Take 2 tablets (1 mg) by mouth at bedtime as needed. 4 tablet 4 Active pregabalin (LYRICA) 25 mg oral capsule Take 1 capsule (25 mg) by mouth twice a day. 6 capsule 4 Active amLODIPine (NORVASC) 10 mg oral tablet Take 10 mg by mouth Daily. 4 Active acetaminophen (TYLENOL) 500 mg oral tablet Take 1,000 mg by mouth every 6 (six) hours as needed. Active Cholecalciferol, Vitamin D3, 50 mcg (2,000 unit) oral capsule Take 2,000 Units by mouth Daily. 4 Active amiodarone (CORDARONE) 200 mg oral tablet Take 100 mg by mouth Daily. 4 Active omega-3 acid ethyl esters (LOVAZA) 1 gram oral capsule Take 1 g by mouth twice a day. 4 Active atenolol (TENORMIN) 25 mg oral tablet Take 12.5 mg by mouth Daily. 5 026 Active atorvastatin (LIPITOR) 20 mg oral tablet Take 20 mg by mouth Daily. 5 Active denosumab (PROLIA) 60 mg/mL SubQ injection Inject 60 mg under the skin Every 6 months. 5 026 Active oxyCODONE, immediate release, (ROXICODONE) 5 mg oral tablet Take 1 tablet (5 mg) by mouth every 6 (six) hours as needed. 8 tablet 4 025 Discontin ued(Patie nt discontin ued) oxyCODONE-acetami nophen (PERCOCET) 5-325 mg oral tablet TAKE 1 TABLET BY MOUTH EVERY 4 HOURS NEEDED FOR PAIN . 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 2023 Paroxysmal atrial fibrillation 04/30/2023 Acquired absence of both cervix and uterus 04/18 Acquired absence of other sp ecified parts of digestive tract 04/18/2023 Arthrodesis status 04/18/2023 Constipation, unspecified 04/18/2023 Dorsalgia, unspecified 04/18/2023 Elevation of levels of liver transaminase levels 04/18/2023 Encounter for surgical after care following surgery on the nervous system 04/18/2023 Gastro-esophageal reflux disease without esophag itis 04/18/2023 Hypotension, unspecified 04/18/2023 MCFP (current) use of systemic steroids 04/2023 Major depressive disorder, single episode, unspe cified 04/18/2023 Muscle weakness (generalized) 04/18/2023 Other acute postprocedural pain 04/18/2023 Pain in left lower leg 04/18/2023 Personal history of Methicil jeanne resistant Staphylococcus aureus infection 04/18/2023 Intractable pain 04/10/2023 Acute pain of left lower extremity 04/05/2023 Lumbar radiculopathy 04/01/2023 Vitamin D deficiency 06/13/2022 Primary osteoarthritis of right hip 08/04/2020 Pseudoarthrosis of cervical spine, subsequent en counter 06/05/2020 Overview (04/21/2023): Added automatically from request for surgery [id number] H/O nonmelanoma skin cancer 11/10/2018 Overview (04/21/2023): BCC: -left chin, s/p Mohs 10/2017 Hypertriglyceridemia 03/10/2018 Cervical stenosis of spinal canal 09/10/2017 Overview (04/21/2023): Added automatically from request for surgery [id number] History of dysplastic nevus 09/05/2017 Overview (04/21/2023): rt posterior base of neck- Moderate to severe dysplasia 2005 Lymphocytosis 04/22/2016 Overview (04/21/2023): 04/22/[address] Norwood - the level of the patient has an absolute lymphocytosis. If persistent this could be early chronic lymphocytic leukemia. Flow cytometry may be helpful to further evaluate if it the count does not normalize Low bone mass 12/21/2014 Overview (04/21/2023): Wrist Fx 2018 with fall, endo plans prolia after neck surgery 2020 DEXA 12/22/2014 mild low, DUE [id number], Ca and D 05/24/2019 worsening, -2, FRAX 24.6% and 8.1% - asked to return to icuss tx BP Aortic insufficiency 03/04/2014 Overview (04/21/2023): Moderate aortic insufficiency per echocardiogram in 2016. 03/03/2018 stable with mild dilation aorta 4.2 diameter Dilated aortic root 03/04/2014 Overview (04/21/2023): 11/2015 mild dilation, Dr Wolfe recommended repeat in 3 years. Routine health maintenance 02/08/2014 Overview (04/21/2023): Reviewed at [facility] exam 04/20/06/13/20222020 Menstrual periods: Post menopausal - [id number] d/c'd HRT Calcium/vit D: Recommended daily DEXA: [...] 07/09/2022 NEG FIT Chronic insomnia 04/02/2011 Overview (04/21/2023): Follows with Dr Bony Yanes - takes ativan 0.25 mg at bedtime, higher dose limited by fatigue. ; Insomnia, unspecified Mild early onset dysthymic d isorder, in full remission, with melancholic features, with pure dysthymic syndrome 04/02/2011 Overview (04/21/2023): Follows Dr Bony Yanes annually - duloxetine 20 mg Atrophy of vulva 07/12/2010 Overview (04/21/2023): LW Onset: 04/2010 ; Genital Atrophy Female Aquired Symptomatic menopausal or female climacteric sta ja 07/12/2010 Overview (04/21/2023): LW Modifier: based on symptoms, post hyst 1979 LW Onset: 1999 ; Menopause Essential hypertension 08/21/2002 Overview (04/21/2023): hydrochlorothiazide 25, atenolol 75, norvasc 5 mg ; Hypertension Encounters Date Type Department Care Team Description 08/16/2024 10:45 AM CDT Office Visit [facility]an [facility]) [address] [place] [address] Aurelia Garcia, REJI Sacroiliitis (HCC) (Primary Dx); S/P lumbar fusion; Lumbar spine pain 08/16/2024 Travel from Last 3 Months Social History Tobacco Use Types Packs/Day Years Used Date Smoking Tobacco: Never Smokeless Tobacco: Never Alcohol Use Standard Drinks/Week Comments Never 0 (1 standard drink = 0.6 oz pur e alcohol) [facility] Utilities Answer Date Recorded In the past 12 months has [facility] [employer], oil, or water Face to Face Live threatened to shut off services in your [...] place to sleep or slept in a mcc (including now)? No 04/10/2023 Comments No Sex and Gender Information Value Date Recorded Sex Assigned at Female 03/11/2023 11:10 AM RESISTANCE WELDER Legal Sex Female 12:50 PM RESISTANCE WELDER Gender Identity Female 03/11/2023 11:10 AM RESISTANCE WELDER Sexual Orientation Straight 03/11/2023 11 :10 AM RESISTANCE WELDER Last Filed Vital Signs Vital Sign Reading Time Taken Comments Blood Pressure 149/83 04/18/2023 11:09 AM RESISTANCE WELDER just finished getting dressed Pulse 80 04/18/2023 5:00 AM RESISTANCE WELDER Temperature 36.4 C (97.5 F) 04/18/2023 11:09 AM RESISTANCE WELDER Respiratory Rate 19 04/18/2023 11:0 9 AM RESISTANCE WELDER Oxygen Saturation 96% 04/18/2023 11: 09 AM RESISTANCE WELDER Inhaled Oxygen Concentration - - Weight 59.9 kg (132 lb) 08/16/2024 12:1 8 PM CDT Height 162.6 cm (5' 4) 08/16/2024 12:1 8 PM CDT Body Mass Index 22.66 08/16/2024 12:18 PM CDT Plan of Treatment Health Maintenance Due Date Last Done Comments Colonoscopy 1945 Hepatitis C Screening 1945 Depression Follow-Up (PHQ-9) 12/29/1946 Zoster Vaccine (1 of 2) 12/29/1997 RSV Vaccines (1 - 1-dose 75+ series) 12/29/2022 COVID-19 Vaccine ( season) 2023 12/04/2021, 03/07/2021, 05/19/2020, Additional history exists Yearly Review of HCD 02/25/2024 02/25/2023 Medicare Wellness Visit 11/26/2024 11/27/19 24, 06/13/2022, 04/26/2021, Additional history exists Osteoporosis Screening 10/21/2025 , 10/22/2023, 11/14/2021, Additional history exists Adult Tetanus Booster 03/24/2029 03/24/2019 , 11/26/2007, 01/31/1999 Pneumococcal 50+ Years Completed 01/28/2017, 2014 Influenza Vaccine Completed 11/27/2023, , 01/28/2022, Additional history exists Meningococcal B Vaccine Aged Out No l onger eligible based on patient's age to complete this topic Medical Devices Implanted Type Area Dinkey Operator Slate Device Identifier Shelf Expiration Date Model / Serial / Lot Nmp Fibers Large - [id number] Implanted:Qty : 1 on 04/01/2023 by Isai Foss MD at [facility] Bone N/A: Spine Lumbar [employer] 11/02/2027 [id number] / [id number] / Nmp Fibers Large - [id number] Implanted:Qty : 1 on 04/01/2023 by Isai Foss MD at [facility] Bone N/A: Spine Lumbar [employer] 12/09/2027 [id number] / [id number] / Nmp Fibers Large - [id number] Implanted:Qty : 1 on 04/01/2023 by Isai Foss MD at [facility] Bone N/A: Spine Lumbar [employer] 10/31/2027 [id number] / [id number] / Cancellous Chips 30cc - [id number] Implanted:Qty : 1 on 04/01/2023 by Isai Foss MD at [facility] Bone N/A: Spine Lumbar Med[employer] Inc 01/23/2027 [id number] / [id number] / Cancellous Chips 60cc - [id number] Implanted:Qty : 1 on 04/01/2023 by Isai Foss MD at [facility] Bone N/A: Spine Lumbar Med[employer] Inc 06/14/2026 [id number] / [id number] / Cancellous Chips 30cc - [id number] Implanted:Qty : 1 on 04/01/2023 by Isai Foss MD at [facility] Bone N/A: Spine Lumbar [employer] Inc 01/23/2027 [id number] / [id number] / Infuse Med - [id number] Implanted:Qty : 1 on 04/01/2023 by Isai Foss MD at [facility] Prosthetic Implant Non-Specific N/A: Spine Lumbar Medtronic Sof[employer]or [employer]ane[employer] 09/14/2024 [id number] / / [id number] Creo 5.5, Polyaxial Screw, 6.5x40mm Implanted:Qty : 2 on 04/01/2023 by Isai Foss MD at [facility] Back [id number] / / Description:MFTR: [employer] Creo 5.5, Polyaxial Screw, 6.5x50mm Implanted:Qty : 1 on 04/01/2023 by Isai Foss MD at [facility] Back [id number] / / Description:MFTR: [employer] 5.5mm Ti Alloy Curved Jarred, 125mm Implanted:Qty : 2 on 04/01/2023 by Isai Foss MD at [facility] Back [id number] / / Description:MFTR: [employer] Creo 5.5 Locking Cap Implanted:Qty : 10 on 04/01/2023 by Isai Foss MD at [facility] Back [id number] / / Description:MFTR: [employer] Creo 5.5, Polyaxial Screw, 6.5x45mm Implanted:Qty : 7 on 04/01/2023 by Isai Foss MD at [facility] Back [id number] / / Description:MFTR: Loaded [employer] Insurance [employer] MEDICARE PART A & B Advance Directives For more information, please contact: [phone] * Full Code (Latest Code Status on File) Date Activated Date Inactivated Comments 04/18/2023 11:17 AM Question Answer Comments How was code status determined? Previous Documen tation * Full Code Date Activated Date Inactivated Comments 04/10/2023 2:53 PM 04/18/2023 11:17 AM Question Answer Comments How was code status determined? Previous Documen tation * Full Code Date Activated Date Inactivated Comments 04/05/2023 6:31 PM 04/07/2023 8:29 PM Question Answer Comments How was code status determined? Patient * Full Code Date Activated Date Inactivated Comments 04/02/2023 1:58 AM 04/03/2023 9:38 PM Question Answer Comments How was code status determined? Physician Abelardo leal * Full Code Date Activated Date Inactivated Comments 04/01/2023 5:53 AM 04/01/2023 11:19 AM Question Answer Comments How was code status determined? Physician Abelardo leal Not discussed Care Teams Electric Transfer Operator Relationship Specialty [place] [address] [place] [address] PCP - General Internal Medicine 04/02/23
--- OUTSIDE RECORDS SUMMARY | 2024-08-18 | XMS_ITS | Encounter Summary ---
[facility] Address [address], [place] [address] Care Team Providers Care Manufacturing Process Technician Name Role Phone Carolynn Alvarado MD Primary Care Provider [phone] Reason for Visit * Reason Comments Anticoagulation: Warfarin Encounter Details Date Type Department Care Team (Latest Contact Info) Description 07/09/2024 Anticoagulation PN Anticoagulation Centralized Services [id number] [place] [address] Paroxysmal atrial fibrillation (HRC) (Primary Dx); Monitoring for long-term anticoagulant use Social History [...] Info) Description 09/14/2024 9:[address] [facility] [address] [facility] [place], [place] [address] Sin Castorena MD [address] [place] [place] [address] 11/30/2024 11:30 AM CDT Appointment [facility] [address] [place] [address] [place] [address] [place] [address] 02/07/2025 11:00 AM PAPER COUNTER Appointment [facility] [address] [place] [phone] Reagan Campbell MD [facility] [place], [place] [address] documented as of this encounter Visit Diagnoses Diagnosis Paroxysmal atrial fibrillation (HRC)- Primary Atrial fibrillation Monitoring for long-term anticoagulant use Encounter for long-term (current) use of anticoagulants documented in this encounter Additional Health Concerns Infection Onset Date Last Indicated Resolved Time 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 (+) 11/07/2015 11/07/2015 documented as of this encounter Care Teams Manufacturing Process Technician Relationship Specialty [place] [address] [place] [address] PCP - General Internal Medicine 11/09/15 documented as of this encounter
--- OUTSIDE RECORDS SUMMARY | 2024-08-18 | XMS_ITS | Patient Health Record ---
Author Organization [facility] Address [address] [place] [address] [address] [place] [address] Care Team Providers Care Gerontology Aide Name Role Phone Christiano Carolynn Primary Care Provider UnavailJames Moore Unavailable [phone] Nj Thorne PA-C Unavailable Unavailabl Brian Fitzpatrick Unavailable [phone] Toro Rashid Unavailable [phone] Chuck Euceda Unavailable [phone] Allergies Allergen (clinical drug ingredient) Drug/Non Drug [...] W/U Status Risk Notes Problem Chronic pain (13300482) Other chronic pain (G89.29) Active confirmed Problem Solitary sacroiliitis (548050560) Sacroiliitis, not elsewhere classified (M46.1) Active confirmed Problem Lumbosacral spondylosis without myelopathy (31291968) Spondylosis without myelopathy or radiculopathy, lumbosacral region (M47.817) Active confirmed Problem Cervicalgia (38421369) Cervicalgia (M54.2) Active confirmed Problem Lumbosacral radiculopathy (5609477) Radiculopathy, lumbosacral region (M54.17) Active confirmed Problem Post-laminectomy syndrome (27225844) Post laminectomy syndrome (M96.1) Active confirmed Problem Solitary sacroiliitis (461042927) Sacroiliitis (M46.1) Active confirmed Vital Signs Blood pressure diastolic 68 mm Hg 11/27/2023 Height 64 in 11/27/2023 Blood pressure systolic 114 mm Hg 11/27/2023 Weight 136 lbs 11/27/2023 BMI 23.34 kg/m2 11/27/2023 Procedures Procedure Date Ordered Date Performed Result Body Sit e Intervention: 11/27/2023 12/12/2023 Sched 12/15 Encounters Encounter Location Date Provider Diagnosis [facility] [address] [place] [id number] 10/08/2023 James Buchanan [facility] [address] [place] [id number] 10/20/2023 James Buchanan [facility] [address] [place] [id number] 12/02/2023 James Buchanan [facility] [address] [place] [id number] 12/15/2023 James Buchanan [address] [facility] [address] [place] [address] 11/27/2023 Toro Rashid Post laminectomy syndrome M96.1 ; Sacroiliitis M46.1 and Other chronic pain G89.29 [address] [facility] [address] [place] [address] 12/16/2023 James Buchanan Sacroiliitis, not elsewhere classified M46.1 [address] [facility] [address] [facility] [address] [place] [address] 10/21/2023 James Buchanan Spondylosis without myelopathy or radiculopathy, lumbosacral region M47.817 Assessments Encounter Date Diagnosis (ICD Code) Assessment Notes Treatment Notes Treatment Clinical Notes Section Notes 11/27/2023 Post laminectomy syndrome (ICD-10 - M96.1) 11/27/2023 Sacroiliitis (ICD-10 - M46.1) 12/16/2023 Sacroiliitis, not elsewhere classified (ICD-10 - M46.1) 10/21/2023 Spondylosis without myelopathy or radiculopathy, lumbosacral region (ICD-10 - M47.817) 11/27/2023 Other chronic pain (ICD-10 - G89.29) Michelle returns to clinic today for a follow up evaluation regarding her chronic low back and right lower extremity pain. I have reviewed the [facility] database and did not find any [...] Date [employer] [address] [address] [place] [address] [id number] Michelle Franz Self - patient is the insured 2 Medicare Part B [employer] [address] [place] [address] [id number] Michelle Franz Self - patient is the insured 3 Medical (General) History Medical History History ICD Code acid reflux arthritis depression headaches hypertension osteoporosis Surgical History Surgery Date(Month/Year) Spinal Fusion 2023 gall bladder surgery 2018 microdiscectomy 2016,2020,2020 cervical fusions 2014,2017,2020 Hospitalization History Reason Date(Month/Year) see surgical history
--- OUTSIDE RECORDS SUMMARY | 2024-08-18 | XMS_ITS | Referral Summary ---
Author Organization [facility] Address [address] [place] [address] Care Team Providers Care Gas Station Supervisor Name Role Phone Carolynn Alvarado MD Primary Care Provider Encounters Date Type Department Care Team Description 08/16/2024 Travel 08/16/2024 10:45 AM CDT Office Visit [facility]) [address] [place] [address] Aurelia Garcia PA-C Sacroiliitis (HCC) (Primary Dx); S/P lumbar fusion; Lumbar spine pain from Last 3 Months Allergies Active Allergy Reactions Criticality Noted Date Comments Lisinopril Palpitations,Unknown 01/08/2010 COHEN COHEN Headache COHEN Tizanidine 04/13/2023 Nightmares Other Reaction(s): hallucination Medications medical supply, miscellaneous (ELECTRICAL BONE GROWTH STIMULATOR)Indica tions:S/P lumbar fusion Company: [employer] - for home use. 1 each 3 Active [...] as needed. 12 capsule 04/03/2023 12:39 PM SCENARIO WRITER 4 Active polyethylene glycol (MIRALAX) 17 gram [...] Take 20 mg by mouth Daily. 5 026 Active denosumab (PROLIA) 60 mg/mL SubQ injection [...] Active Problems Problem Noted Date Diagnosed Date [facility] (current) use of anticoagulants 2023 Paroxysmal atrial [...] without esophag itis 04/18/2023 Hypotension, unspecified 04/18/2023 terminal computer operator (current) use of systemic steroids 04/2023 Major [...] (04/21/2023): Added automatically from request for surgery [id number] H/O nonmelanoma skin cancer 11/10/2018 Overview (04/21/2023): BCC: -left chin, s/p Mohs 10/2017 Hypertriglyceridemia 03/10/2018 Cervical stenosis of spinal canal 09/10/2017 Overview (04/21/2023): Added automatically from request for surgery [id number] History of dysplastic nevus 09/05/2017 Overview (04/21/2023): [...] surgery 2020 DEXA 12/22/2014 mild low, DUE [id number], Ca and D 05/24/2019 worsening, -2, FRAX 24.6% and 8.1% - asked to return to dsicuss tx BP Aortic insufficiency 03/04/2014 Overview (04/21/2023): Moderate aortic insufficiency per echocardiogram in 2015. 03/03/2018 stable with mild dilation aorta 4.2 diameter Dilated aortic root 03/04/2014 Overview (04/21/2023): 11/2015 mild dilation, Dr Wolfe recommended repeat in 3 years. Routine health maintenance 02/08/2014 Overview (04/21/2023): Reviewed at [facility] exam 04/20/06/13/20222020 Menstrual periods: Post menopausal - 6931-6482 d/c'd HRT Calcium/vit D: Recommended daily DEXA: [...] atenolol 75, norvasc 5 mg ; Hypertension Social History Tobacco Use Types Packs/Day Years Used Date Smoking Tobacco: Never Smokeless Tobacco: Never Alcohol Use Standard Drinks/Week Comments Never 0 (1 standard drink = 0.6 oz pur e alcohol) [facility] Utilities Answer Date Recorded In the past 12 months has [facility] [employer], [employer], or water [email or web address] threatened to shut off services in your [...] in a senior care (including now)? No 04/10/2023 Comments No Sex and Gender Information Value Date Recorded Sex Assigned at Female 03/11/2023 11:10 AM SCENARIO WRITER Legal Sex Female 12:50 PM SCENARIO WRITER Gender Identity Female 03/11/2023 11:10 AM SCENARIO WRITER Sexual Orientation Straight 03/11/2023 11 :10 AM SCENARIO WRITER Last Filed Vital Signs Vital Sign Reading Time Taken Comments Blood Pressure 149/83 04/18/2023 11:09 AM SCENARIO WRITER just finished getting dressed Pulse 80 04/18/2023 5:00 AM SCENARIO WRITER Temperature 36.4 C (97.5 F) 04/18/2023 11:09 AM SCENARIO WRITER Respiratory Rate 19 04/18/2023 11:0 9 AM SCENARIO WRITER Oxygen Saturation 96% 04/18/2023 11: 09 AM SCENARIO WRITER Inhaled Oxygen Concentration - - Weight 59.9 kg (132 lb) 08/16/2024 12:1 8 PM CDT Height 162.6 cm (5' 4) 08/16/2024 12:1 8 PM CDT Body Mass Index 22.66 08/16/2024 12:18 PM CDT Plan of Treatment Not on file Medical Devices Implanted Type Area Ceramic Coater Machine Device Identifier Shelf Expiration Date Model / Serial / Lot Nmp Fibers Large - [id number] Implanted:Qty : 1 on 04/01/2023 by Isai Foss MD at [facility] Bone N/A: Spine Lumbar [employer] 11/02/2027 [id number] / [id number] / Nmp Fibers Large - [id number] Implanted:Qty : 1 on 04/01/2023 by Isai Foss MD at [facility] Bone N/A: Spine Lumbar [employer] 12/09/2027 [id number] / [id number] / Nmp Fibers Large - [id number] Implanted:Qty : 1 on 04/01/2023 by Isai Foss MD at [facility] Bone N/A: Spine Lumbar [employer] 10/31/2027 [id number] / [id number] / Cancellous Chips 30cc - [id number] Implanted:Qty : 1 on 04/01/2023 by Isai Foss MD at [facility] Bone N/A: Spine Lumbar Medtronic Inc 01/23/2027 [id number] / [id number] / Cancellous Chips 60cc - [id number] Implanted:Qty : 1 on 04/01/2023 by Isai Foss MD at [facility] Bone N/A: Spine Lumbar Medtronic Inc 06/14/2026 [id number] / [id number] / Cancellous Chips 30cc - [id number] Implanted:Qty : 1 on 04/01/2023 by Isai Foss MD at [facility] Bone N/A: Spine Lumbar Medtronic Inc 01/23/2027 [id number] / [id number] / Infuse Med - [id number] Implanted:Qty : 1 on 04/01/2023 by Isai Foss MD at [facility] Prosthetic Implant Non-Specific N/A: Spine Lumbar Medtronic Sofamor Danek 09/14/2024 [id number] / / [id number] K Creo 5.5, Polyaxial Screw, 6.5x40mm Implanted:Qty : 2 on 04/01/2023 by Isai Foss MD at [facility] Back [id number] / / Description:MFTR: [employer] Creo 5.5, Polyaxial Screw, 6.5x50mm Implanted:Qty : 1 on 04/01/2023 by Isai Foss MD at [facility] Back 5119.1650 / / Description:MFTR: [employer] 5.5mm Ti Alloy Curved Jarred, 125mm Implanted:Qty : 2 on 04/01/2023 by Isai Foss MD at [facility] Back [id number] / / Description:MFTR: [employer] Creo 5.5 Locking Cap Implanted:Qty : 10 on 04/01/2023 by Isai Foss MD at [facility] Back [id number] / / Description:MFTR: [employer] Creo 5.5, Polyaxial Screw, 6.5x45mm Implanted:Qty : 7 on 04/01/2023 by Isai Foss MD at [facility] Back [id number] / / Description:MFTR: [employer] Insurance Flow[employer] MEDICARE PART A & B Advance Directives For more information, please contact: [phone] * Full Code (Latest Code Status on [...] Physician Abelardo leal Not discussed Care Teams Gas Station Supervisor Relationship Specialty [place] [address] [address] [address] PCP - General Internal Medicine 04/02/23
--- OUTSIDE RECORDS SUMMARY | 2024-08-18 | XMS_ITS | Encounter Summary ---
Author Organization [facility] Address [address], [place] [address] Care Team Providers Care Product Manager Medical Device Name Role Phone Carolynn Alvarado MD Primary Care Provider [phone] Reason for Visit * Reason Comments Anticoagulation: Warfarin Encounter Details Date Type Department Care Team (Latest Contact Info) Description 08/04/2024 Anticoagulation PN Anticoagulation Centralized Services [id number] [place] [address] Paroxysmal atrial fibrillation (HRC) (Primary [...] Info) Description 09/14/2024 9:00 AM CDT Appointment [facility] [address] [facility]. [place], [place] [address] Sin Castorena MD [address] [place] [address] 11/30/2024 11:30 AM CDT Appointment [facility] [address] [place] [address] [place] [address] [place] [address] 02/07/2025 11:00 AM ASSISTANT TECHNICIAN Appointment [facility] [address] [place] [phone] Reagan Campbell MD [facility] [place], [place] [address] documented as of this encounter Visit Diagnoses Diagnosis Paroxysmal atrial fibrillation (HRC)- Primary Atrial fibrillation Monitoring for long-term anticoagulant use Encounter for long-term (current) use of anticoagulants documented in this encounter Additional Health Concerns Infection Onset Date Last Indicated Resolved Time 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
--- OUTSIDE RECORDS SUMMARY | 2024-08-18 | XMS_ITS | Encounter Summary ---
Author Organization [facility] Address [address] [place] [address] Care Team Providers Care Operations Research Director Name Role Phone Carolynn Alvarado MD Primary Care Provider [phone] Encounter Details Date Type Department Care Team (Latest Contact Info) Description 08/16/2024 Travel Social History Tobacco Use Types Packs/Day Years Used Date Smoking Tobacco: Never Smokeless Tobacco: Never Alcohol Use Standard Drinks/Week Comments Never 0 (1 standard drink = 0.6 oz pur e alcohol) [facility] Utilities Answer Date Recorded In the past 12 months has e [employer], gas, oil, or water [email or web address] threatened to shut off services in your [...] place to sleep or slept in a penitentiary (including now)? No 04/10/2023 Comments No Sex and Gender Information Value Date Recorded Sex Assigned at Female 03/11/2023 11:10 AM GASOLINE ATTENDANT Legal Sex Female 12:50 PM GASOLINE ATTENDANT Gender Identity Female 03/11/2023 11:10 AM GASOLINE ATTENDANT Sexual Orientation Straight 03/11/2023 11 :10 AM GASOLINE ATTENDANT documented as of this encounter Plan of Treatment Not on file documented as of this encounter Visit Diagnoses Not on filedocumented in this encounter Care Teams Operations Research Director Relationship Specialty [place] [address] [address] [address] PCP - General Internal Medicine 04/02/23 documented as of this encounter
--- OUTSIDE RECORDS SUMMARY | 2024-08-18 00:01 | XMS_ITS | Encounter Summary ---
Author Organization [facility] Address [facility] [place] [address] Care Team Providers Care Film Reproducer Name Role Phone Carolynn Alvarado Primary Care Provider [phone] Morgan Avelar MD Unavailable Ismael Ordoñez PA-C Unavailable [phone] Marcie Haskins APRN WOOD POLE TREATER Unavailable Tcaleksandra Moapa Unavailable [phone] Encounter Details Date Type Department Care Team (Late st Contact Info) Description 10/20/[address] [facility] [address] [address] Rachna Franz APRN WOOD POLE TREATER [facility] [address] [place] [address] [address] [place], [place] [id number] Social History Tobacco Use Types Packs/Day Years Used Date Smoking Tobacco: Never Smokeless Tobacco: Never Alcohol Use Standard Drinks/Week Comments No 0 (1 standard drink = 0.6 oz pur e alcohol) PHQ-2 Answer Date Recorded PHQ-2 Score 0 03/25/2018 Comments No Sex and Gender Information Value Date Recorded Sex Assigned at Not on file Legal Sex Female 5:10 AM COMMERCIAL REAL ESTATE ASSOCIATE Gender Identity Not on file Sexual Orientation [...] on filedocumented in this encounter Care Teams Film Reproducer Relationship Specialty Start Date End Date Carolynn Alvarado PCP - General 05/30/16 [place] [address] [place] [address] Assigned Neuroscience Provider 01/30/20 12/02/20 Ismael Ordoñez PA-C [address] [facility] [address] [place] [address] Assigned Neuroscience Provider 12/03/20 03/07/24 Marcie Haskins APRN WOOD POLE TREATER [address] [place] [address] Nurse Practitioner Family Medicine - Geriatric Medicine 04/18/23 04/30/23 Enid Lees [address] [place] [address] 04/18/23 04/30/23 documented as of this encounter
--- OUTSIDE RECORDS SUMMARY | 2024-08-18 00:01 | XMS_ITS ---
Author Organization [facility] Care Team Providers Care Seam Feller Name Role Phone CHET REIDTCHEN Unavailable Unavailable LAM PEPE Unavailable Unavailable Allergies and adverse reactions Code CodeSystem Substance Reaction Severity StartDate Concern Status 98179 RXNORM tiZANidine Unknown 04/17/2023 active 21565 RXNORM Lisinopril Unknown 04/17/2023 active Care Team Name Role Address Phone Organization Dates [facility] [address], [place], [address], [place] (Office): : [facility] 04/18/2023 - 04/30/2023 LAM PEPE [address], [place], [address], [place] (Office): [facility] 04/18/2023 - 04/30/2023 Immunizations Immunization Status Vaccine Details Vaccine Code CodeSystem Date Notes Influenza completed Influenza, high-dose, split virus, quadrivalent, injectable, preservative free 197 CVX created date: 04/17/2023 administer ed date: 01/04/2023 TB 2 Step Mantoux Skin Test completed tuberculin skin test; unspecified formulation lotNumber: [id number] expiry: 07/14/2026 Mfg: Sanofi Pasteur Given 0.1 ml Left Forearm intradermally Step 2 of Multi-step with next step required 98 CVX created date: 04/29/2023 consent date: 04/28/2023 administer ed date: 04/29/2023 Educated by Sen on 04/28/2023 TB 2 Step Mantoux Skin Test completed tuberculin skin test; unspecified formulation lotNumber: [id number] expiry: 07/14/2026 Mfg: Sanofi Pasteur Given 0.1 ml Right Forearm intradermally Step 1 of Multi-step with next step required 98 CVX created date: 04/18/2023 consent date: 04/18/2023 administer ed date: 04/18/2023 Educated by Sen on 04/18/2023 Read by Yarely Damian TDAP completed tetanus toxoid, reduced diphtheria toxoid, and acellular pertussis vaccine, adsorbed 115 CVX created date: 04/17/2023 administer ed date: 11/26/2007 Pneumococcal Conjugate Vaccine- PCV-13 completed pneumococcal conjugate vaccine, 13 valent 133 CVX created date: 04/17/2023 administer ed date: 10/27/2014 Td completed tetanus and diphtheria toxoids, not adsorbed, for adult use 138 CVX created date: 04/17/2023 administer ed date: 03/24/2019 Td completed tetanus and diphtheria toxoids, not adsorbed, for adult use 138 CVX created date: 04/17/2023 administer ed date: 01/31/1999 Pneumococcal Polysaccharide (PPSV23) Dose 1 completed pneumococcal polysaccharide vaccine, 23 valent 33 CVX created date: 04/17/2023 administer ed date: 01/28/2017 SARS-COV-2 (COVID-19) completed SARS-COV-2 (COVID-19) vaccine, mRNA, spike protein, LNP, preservative free, jeanne-sucrose, 30 mcg/0.3 mL dose Mfg: MODERNA US Step 2 of Multi-step with next step required 309 CVX created date: 04/17/2023 administer ed date: 05/19/2020 SARS-COV-2 (COVID-19) completed SARS-COV-2 (COVID-19) vaccine, mRNA, spike protein, LNP, preservative free, 100 mcg/0.5mL dose or 50 mcg/0.25mL dose Mfg: MODERNA US Step 1 of Multi-step with next step required 207 CVX created date: 04/17/2023 administer ed date: 04/21/2020 SARS-COV-2 (COVID-19) Booster completed SARS-COV-2 (COVID-19) vaccine, mRNA, spike protein, LNP, preservative free, 100 mcg/0.5mL dose or 50 mcg/0.25mL dose Mfg: MODERNA US 207 CVX created date: 04/17/2023 administer ed date: 03/07/2021 Moderna SARS-COV-2 (COVID-19) Bivalent Booster completed SARS-COV-2 (COVID-19) vaccine, mRNA, spike protein, LNP, bivalent, preservative free, 50 mcg/0.5 mL or 25 mcg/0.25 mL dose Mfg: moderna Bivalent 229 CVX created date: 04/17/2023 administer ed date: 12/04/2021 Mental Status Section Date Assessment Total Score Description 04/30/2023 BIMS 14 cognitively int act CAM 0 No delirium ind icated PHQ-9 01 minimal depress ion 04/24/2023 BIMS 14 cognitively int act PHQ-9 06 mild depression Problems Problem # Description Date of onset Resolved Date Code CodeSystem Concern Status 1 ACQUIRED ABSENCE OF BOTH CERVIX AND UTERUS 04/18/[address] active 2 ACQUIRED ABSENCE OF OTHER SPECIFIED PARTS OF DIGESTIVE TRACT 04/18/[address] active 3 ARTHRODESIS STATUS 04/18/[address] active 4 CONSTIPATION, UNSPECIFIED 04/18/[address] active 5 DORSALGIA, UNSPECIFIED 04/18/[address] active 6 ELEVATED WHITE BLOOD CELL COUNT, UNSPECIFIED 04/18/[address] active 7 ELEVATION OF LEVELS OF LIVER TRANSAMINASE LEVELS 04/18/[address] active 8 ENCOUNTER FOR SURGICAL AFTERCARE FOLLOWING SURGERY ON THE NERVOUS SYSTEM 04/18/[address] active 9 ESSENTIAL (PRIMARY) HYPERTENSION 04/18/[address] active 10 GASTRO-ESOPHAGEAL REFLUX DISEASE WITHOUT ESOPHAGITIS 04/18/[address] active 11 HYPOTENSION, UNSPECIFIED 04/18/[address] active 12 INSOMNIA, UNSPECIFIED 04/18/[address] active 13 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 ENERGY DIVISION MANAGER (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) USE OF SYSTEMIC STEROIDS 04/18/[address] active 14 LOW BACK PAIN, UNSPECIFIED 04/18/[address] active 15 MAJOR DEPRESSIVE DISORDER, SINGLE EPISODE, UNSPECIFIED 04/18/[address] active 16 MUSCLE WEAKNESS (GENERALIZED) 04/18/[address] active 17 OTHER ACUTE POSTPROCEDURAL PAIN 04/18/[address] active 18 OTHER CHRONIC PAIN 04/18/[address] active 19 PAIN IN LEFT LOWER LEG 04/18/[address] active 20 PERSONAL HISTORY OF METHICILLIN RESISTANT STAPHYLOCOCCUS AUREUS INFECTION 04/18/[address] active 21 RADICULOPATHY, LUMBAR REGION 04/18/[address] active 22 UNSPECIFIED ATRIAL FIBRILLATION 04/18/[address] active Reason for Referral No Reasons for Referral Entered Social History Social History Observation Description Start Date End Date Code Code System Current Smoking Status Tobacco smoking consumption unknown 599276878 SNOMED CT Sex Assigned At Female 1945 76357-7 [facility] Gender Identity Vital Signs Code Code System Vitals Name Values and Units Timing Information 8867-4 [facility] Heart rate Value=80.0 Units=/min 18032-6 [facility] O2 % BldC Oximetry Value=96.0 Units= % 04/30/2023 66172-9 [facility] Pain Level Value=0.0 04/30/2023 9279-1 [facility] Respiratory Rate Value=17.0 Units=/m in 04/30/2023 8462-4 [facility] Blood Pressure-Diastolic Value=70 Un its=mmHg 04/30/2023 8480-6 [facility] Blood Pressure-Systolic Zwshn=261 Un its=mmHg 04/30/2023 8310-5 [facility] Body Temperature Value=97.5 Units= F 04/30/2023 26412-1 [facility] Weight Dpabz=548.3 Units=Lbs 11/2023 8302-2 [facility] Height Value=64.0 Units=Inches 04/18/2023
--- OUTSIDE RECORDS SUMMARY | 2024-08-18 00:01 | XMS_ITS | Encounter Summary ---
[facility] Address [address], [place] [address] Care Team Providers Care Technical Support Coordinator Name Role Phone Carolynn Alvarado MD Primary Care Provider Reason for Visit * Reason Comments Anticoagulation: Labs Overdue 1st outrea ch Encounter Details Date Type Department Care Team (Late st Contact Info) Description 05/28/2024 Telephone PN Anticoagulation Centralized Services [id number] [address] [place], [place] [address] [place] [address] [place] [address] Anticoagulation: Labs Overdue (1st outreach/) Social History Tobacco Use Types Packs/Day Years [...] as of this encounter Nursing Notes * Lashae Watson - 05/28/2024 9:05 AM CDT Frontline: *1st OVERDUE ANTICOAGULATION OUTREACH NOTIFICATION* Patient is OVERDUE for anticoagulation lab monitoring. Please call patient to schedule a lab only visit as soon as possible. Attempt x2 on two separate business days. If there are updates regarding patient's anticoagulation medication, management or patient has transferred care to another provider/health system, please document and route to ANTICOAGULATION PN. If unable to reach patient after 2 attempts, please document and mail letter #[id number] Et Anticoag Letter Overdue First to address on file. Close encounter, after documentation, if patient is scheduled or letter is mailed. Lashae Watson 05/28/2024, 9:05 AM documented in this encounter Plan of Treatment Upcoming Encounters Date Type Department Care Team (Late st Contact Info) Description 09/14/2024 9:00 AM CDT Appointment [facility] [address] [facility] 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
--- OUTSIDE RECORDS SUMMARY | 2024-08-18 00:01 | XMS_ITS | Clinical Summary ---
Author Organization [employer] [facility] Address [address] [place] [address] Care Team Providers Care Steam Distribution Supervisor Name Role Phone Carolynn Alvarado Qi Primary Care Provider [phone] Allergies Active Allergy Reactions Criticality Noted Date Comments Lisinopril Headache 04/14/2016 Medications oxyCODONE-acetami nophen, 5-325 mg, (PERCOCET) 5-325 mg per tabletIndications :Lumbar radiculopathy Take 1 tablet by mouth every 4 hours if needed for Pain Max acetaminophen dose: 4000mg in 24 hrs. 15 tablet 04/17/19 17 Active cyclobenzaprine (FLEXERIL) 10 mg tabletIndications :Muscle spasm Take 0.5-1 tablets by mouth 3 times daily if needed for Muscle Spasm. 15 tablet 04/17/19 17 Active predniSONE (DELTASONE) 20 mg tabletIndications :Lumbar radiculopathy Take 2 tab daily x 2 days, then 1 tab daily x 3 days then stop. 7 tablet 04/17/19 17 Active lidocaine 5% (LIDODERM) 5 % patchIndications: Acute right lumbar radiculopathy Apply 1 patch to painful area of skin for up to 12 hours within a 24-hour period. 25 Patch 04/19/19 17 Active Social History Tobacco Use Types Packs/Day Years Used Date Smoking Tobacco: Never Tobacco Cessation:Counseling Given: No Alcohol Use Standard Drinks/Week Comments No 0 (1 standard drink = 0.6 oz pur e alcohol) Comments No Sex and Gender Information Value Date Recorded Sex Assigned at Not on file Legal Sex Female 12:25 PM REFRIGERATION PLANT CORK INSULATOR Gender Identity Not on file Sexual Orientation Not on file Obstetrics History Last Filed Vital Signs Vital Sign Reading Time Taken Comments Blood Pressure 135/74 04/25/2023 5:38 PM REFRIGERATION PLANT CORK INSULATOR Pulse 68 04/25/2023 5:38 PM REFRIGERATION PLANT CORK INSULATOR Temperature 36.2 C (97.2 F) 04/25/2023 12:05 PM REFRIGERATION PLANT CORK INSULATOR Respiratory Rate 16 04/25/2023 5:38 PM REFRIGERATION PLANT CORK INSULATOR Oxygen Saturation 99% 04/25/2023 5:38 PM REFRIGERATION PLANT CORK INSULATOR Inhaled Oxygen Concentration - - Weight 58.1 kg (128 lb) 04/25/2023 12:05 PM REFRIGERATION PLANT CORK INSULATOR Height 162.6 cm (5' 4) 04/25/2023 12:05 PM REFRIGERATION PLANT CORK INSULATOR Body Mass Index 21.97 04/25/2023 12:05 PM REFRIGERATION PLANT CORK INSULATOR Plan of Treatment Not on file Insurance MEDICARE PART A HB ONLY MEDICARE PART B HB ONLY MEDICA PRIME SOLUTION HB Care Teams Steam Distribution Supervisor Relationship Specialty Start Date End Date Carolynn Alvarado [address] [place] [address] PCP - General Internal Medicine 04/25/23
--- OUTSIDE RECORDS SUMMARY | 2024-08-18 00:01 | XMS_ITS | Encounter Summary ---
[facility] Address [address] [place] [address] Care Team Providers Care Pack Puller Name Role Phone Carolynn Alvarado MD Primary Care Provider [phone] Encounter Details Date Type Department Care Team (Late Contact Info) Description 12/08/2018 Refill Order [facility] [address] [place] [address] [place] [address] [place], [place] [id number] Social History Tobacco Use Types Packs/Day Years Used Date Smoking Tobacco: Never Smokeless Tobacco: Never Alcohol Use Standard Drinks/Week Comments No 0 (1 standard drink = 0.6 oz pur e alcohol) PHQ-2 Answer Date Recorded PHQ-2 Score 0 07/11/2018 Comments No Sex and Gender Information Value [...] Info) Description 09/14/2024 9:00 AM CDT Appointment [facility] [address] [facility] [place], [place] [id number] Sin Castorena MD [address] [place] [address] 11/30/2024 11:30 AM CDT Appointment [facility] [address] [place] [address] [place] [address] [place] [address] 02/07/2025 11:00 AM PROCUREMENT ASSISTANT Appointment [facility] [address] [place] [phone] Reagan Campbell MD [address] [place], [place] [id number] documented as of this encounter Visit Diagnoses Diagnosis Encounter for long-term (current) use of medications- Primary Encounter for long-term (current) use of other medications documented in this encounter Additional Health Concerns Infection Onset Date Last Indicated Resolved Time 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
[2024-08-18 01:25] VITALS: BP 173/95; PULSE 75; RESP 18; O2SAT 97
== END 2024-08-18 01:25 | disposition home or self-care (01) ==
PROVIDERS: Emergency Provider Emergency Medicine
DX: S12.101A Unspecified nondisplaced fracture of second cervical vertebra, initial encounter for closed fracture (principal); J34.89 Other specified disorders of nose and nasal sinuses; W17.81XA Fall down embankment (hill), initial encounter
CPT/HCPCS: 70450; 70486; 72125; 99284; 99285